=== PATIENT | female | born 1965 | race Caucasian/White ===

== ENCOUNTER 2019-10-23 09:16 | Outpatient (REF) | payer MEDICAID, SELFPAY ==
[2019-10-23 16:35] LABS: Anion Gap 10.8 mmol/L (3-11); BUN 11 mg/dL (7-18); CO2 28.2 mmol/L (21.0-32.0); CREATININE 1.09 mg/dL (0.55-1.02); Calcium 9.5 mg/dL (8.5-10.1); Calculated LDL 42 mg/dL (<100); Chloride 102 mmol/L (98-107); Cholesterol 142 mg/dL (<200); Estimated GFR 52.92 (mL/min/1.73m2); Glucose 130 mg/dL (74-106); HDL Cholesterol 30 mg/dL (40-60); Potassium 4.6 mmol/L (3.5-5.1); Sodium 141 mmol/L (136-145); Triglyceride 350 mg/dL (<150)
[2019-10-23 16:43] LABS: Hemoglobin A1C 7.2 % (3.8-5.6)
== END 2019-10-23 09:36 ==
LOC: NCHCN 09:16
PROVIDERS: PCP Nurse Practitioner Family; Visit Provider Nurse Practitioner Family
DX: E11.9 Type 2 diabetes mellitus without complications (principal); I10 Essential (primary) hypertension; Z13.220 Encounter for screening for lipoid disorders
CPT/HCPCS: 80048; 80061; 83036

== ENCOUNTER 2020-03-23 19:34 | Outpatient (REF) | payer MEDICAID, SELFPAY ==
[2020-03-23 19:30] LABS: HCT 40.9 % (36.0-46.0); HGB 13.1 g/dL (11.2-15.7); MCH 28.4 pg (27.0-33.0); MCV 88.5 fL (80-95); Platelet Count 331 10^3/uL (130-400); RBC 4.62 10^6/uL (3.93-5.22); RDW 14.2 % (11.7-14.6); RDW-SD 45.1 fL; WBC 14.99 10^3/uL (4.4-10.8)
[2020-03-23 19:42] LABS: Iron 33 ug/dL (50-170); Total Iron Binding Capacity 327 ug/dL (250-450); Transferrin Sat 10 % (15-50)
[2020-03-23 19:57] LABS: Ferritin 99 ng/mL (8-252)
== END 2020-03-23 19:54 ==
LOC: NCHCN 19:34
PROVIDERS: PCP Nurse Practitioner Family; Visit Provider Nurse Practitioner Family
DX: R53.83 Other fatigue (principal); K62.5 Hemorrhage of anus and rectum
CPT/HCPCS: 82306; 85027; 82728; 83540; 83550; 84443

== ENCOUNTER 2020-04-28 08:03 | Outpatient (CLI) | payer MEDICAID, SELFPAY ==
[2020-04-30 13:23] LABS: SARS-CoV-2 RNA Not Detected (NotDetected); SARS-CoV-2 RNA Source Nasal/Nares
== END 2020-04-28 08:23 ==
PROVIDERS: PCP Nurse Practitioner Family; Visit Provider Family Medicine
DX: R06.09 Other forms of dyspnea (principal)
CPT/HCPCS: U0003

== ENCOUNTER 2020-05-02 01:52 | Outpatient (CLI) | payer MEDICAID, SELFPAY ==
[2020-05-02] MEDS: Albuterol HFA 18 GM 200 PUFF INH IH (14:51)
[2020-05-02] MEDS: Methacholine 100 MG VIAL IH (14:51)
[2020-05-02] MEDS: Inhaler, Assist Device 1 EACH MC (14:52)
--- NOTE | 2020-05-08 18:12 | W.PFT ---
Date of service: 05/02/20 Time of Service: 01:03 Pulmonary Function Test Result Interpretation Spirometry: No evidence of obstructive airways disease, no bronchodilator response Lung Volumes: No evidence of restriction Diffusion Capacity: Severely reduced which is mildly reduced when corrected to alveolar volume Airway Pressure: Normal Impression Isolated severe diffusion defect. This can be seen in early, developing interstitial lung disease or and pulmonary hypertension. Therefore clinical correlation and perhaps further work-up is recommended Clinical Correlation therefore is recommended. Methacholine Challnege Test Date of Service Date of Service: 05/02/2020 Note After normal spirometry methacholine challenge testing was carried out up to methacholine concentration of 2 mg/mL. At that point the patient had a 22% drop in FEV1. Impression Strongly positive methacholine challenge test
== END 2020-05-02 02:12 ==
PROVIDERS: PCP Nurse Practitioner Family; Visit Provider Nurse Practitioner Family
DX: R06.09 Other forms of dyspnea (principal)
CPT/HCPCS: 94060; 94726; 94729; 95070; 94010; J7674

== ENCOUNTER 2020-06-21 21:56 | Outpatient (REF) | payer MEDICAID, SELFPAY ==
[2020-06-23 09:41] LABS: Alpha 1 Antitrypsin,Serum 160 mg/dL (90-200)
== END 2020-06-21 22:16 ==
LOC: NCHCN 21:56
PROVIDERS: PCP Nurse Practitioner Family; Visit Provider Nurse Practitioner Family
DX: R94.2 Abnormal results of pulmonary function studies (principal)
CPT/HCPCS: 82103

== ENCOUNTER 2020-12-22 14:27 | Outpatient (REF) | payer MEDICAID, SELFPAY ==
[2020-12-22 19:31] LABS: Iron 44 ug/dL (50-170); Total Iron Binding Capacity 328 ug/dL (250-450); Transferrin Sat 13 % (15-50)
[2020-12-22 19:42] LABS: Anion Gap 14.2 mmol/L (3-11); BUN 16 mg/dL (7-18); CO2 20.8 mmol/L (21.0-32.0); CREATININE 1.1 mg/dL (0.55-1.02); Calcium 9.2 mg/dL (8.5-10.1); Chloride 104 mmol/L (98-107); Cholesterol 140 mg/dL (<200); Estimated GFR 51.96 (mL/min/1.73m2); Glucose 129 mg/dL (74-106); HDL Cholesterol 30 mg/dL (40-60); Potassium 4.9 mmol/L (3.5-5.1); Sodium 139 mmol/L (136-145); Triglyceride 423 mg/dL (<150)
[2020-12-22 19:57] LABS: LDL CHOLESTEROL 62 mg/dL (<100)
== END 2020-12-22 14:28 | disposition home or self-care (01) ==
LOC: NCHCN 14:27
PROVIDERS: PCP Nurse Practitioner Family; Visit Provider Nurse Practitioner Family
DX: E78.1 Pure hyperglyceridemia (principal); D50.9 Iron deficiency anemia, unspecified; I10 Essential (primary) hypertension
CPT/HCPCS: 80048; 80061; 83721; 83540; 83550

== ENCOUNTER 2021-01-23 01:13 | Outpatient (CLI) | payer MEDICAID, SELFPAY ==
--- NOTE | 2021-01-23 | DI.MAMMO_ITS ---
Exam(s) MAMMO SCREENING EXAM: MAMMO SCREENING CLINICAL HISTORY: SCREENING, Z12.39. TECHNIQUE: Bilateral full field digital CC and MLO mammographic images were obtained with 3D tomosyn thesis and utilizing computer aided detection (CAD). COMPARISON: None. Prior screening baseline mammogram was in 2010 and apparently not available. FINDINGS: There are no CAD designations. There are no spiculated masses nor malignant appearing microcalcification groups. There is no significant architectural distortion nor skin thickening-retraction. IMPRESSION: No radiographic evidence of malignancy. BI-RADS Category 1 - Negative Breast Density - Category B - Scattered areas of fibroglandular density Breast density Category C or D implies that the patient has dense breast tissue. Dense breast tissue can make it harder to find cancer on a mammogram. Dense breast tissue is also associated with an incr eased risk of breast cancer. This information about the result of the mammogram report was provided to the patient to raise their awareness. Use this report when you speak with the patient about their risks for breast cancer, which includes their family history. At that time, you may recommend additional screening tests (Ultrasoun d or MRI) as these tests may add significant information. A negative radiographic report should not delay biopsy if a dominant or clinically suspicious mass is present. Up to ten percent of cancers are not identified on mammography. A negative report may reinforce clinical impression. Adenosis and dense breasts may obscure an underlying neoplasm. False positive reports average 6 to 10%. Patient will receive a letter notifying them of these results.
== END 2021-01-23 01:33 ==
PROVIDERS: PCP Nurse Practitioner Family; Visit Provider Nurse Practitioner Family
DX: Z12.31 Encounter for screening mammogram for malignant neoplasm of breast (principal)
CPT/HCPCS: 77063; 77067

== ENCOUNTER 2021-02-07 03:32 | Outpatient (CLI) | payer MEDICAID, SELFPAY ==
[2021-02-07 10:42] LABS: Abs Immature Grans 0.07 10^3/uL (0.0-0.06); Absolute Basophil Count 0.08 10^3/uL (0.0-0.2); Absolute Eosinophil Count 0.24 10^3/uL (0.0-0.7); Absolute Lymphocyte Count 3.75 10^3/uL (1.2-3.4); Absolute Monocyte Count 0.59 10^3/uL (0.1-0.8); Basophils % 0.7; Eosinophils % 2.1; HCT 40.8 % (36.0-46.0); HGB 13.3 g/dL (11.2-15.7); Immature Grans % 0.6; Lymphocytes % 32.8; MCH 28.4 pg (27.0-33.0); MCHC 32.6 % (32.0-36.0); MPV 9.8 fL (8.0-11.0); Monocytes % 5.2; Neutrophils % 58.6; Nucleated RBC 0 %; Platelet Count 344 10^3/uL (130-400); RBC 4.69 10^6/uL (3.93-5.22); RDW 14.6 % (11.7-14.6); RDW-SD 46.2 fL; WBC 11.44 10^3/uL (4.4-10.8)
[2021-02-07 11:27] LABS: C-Reactive Protein 3.33 mg/dL (0.0-0.3)
[2021-02-08 09:32] LABS: IgA 517 mg/dL (85-499); IgG 1260 mg/dL (610-1,616); IgM 96 mg/dL (35-242)
[2021-02-08 15:09] LABS: ANA Interpretation Positive (Negative); ANA Titer Pattern 1:80 Speckled
[2021-02-09 10:38] LABS: Myeloperoxidase Ab IgG <0.2 U; Proteinase 3 Ab (PR3) <0.2 U
[2021-02-09 13:27] LABS: c-ANCA Negative (Negative); p-ANCA Negative (Negative)
[2021-02-13 16:48] LABS: Misc Referral (MAYO) See Comments
== END 2021-02-07 03:33 | disposition home or self-care (01) ==
LOC: LBO 03:32
PROVIDERS: PCP Nurse Practitioner Family; Visit Provider Internal Medicine Critical Care Medicine
DX: J84.9 Interstitial pulmonary disease, unspecified (principal)
CPT/HCPCS: 36415; 82784; 83516; 85025; 86038; 86140; 86255

== ENCOUNTER 2022-02-02 16:04 | Outpatient (REF) | payer MEDICAID, SELFPAY ==
[2022-02-02 15:35] LABS: Anion Gap 12.6 mmol/L (3-11); BUN 13 mg/dL (7-18); CO2 23.4 mmol/L (21.0-32.0); Calcium 9.5 mg/dL (8.5-10.1); Chloride 103 mmol/L (98-107); Cholesterol 204 mg/dL (<200); Estimated GFR 57.78 (mL/min/1.73m2); Glucose 136 mg/dL (74-106); HDL Cholesterol 33 mg/dL (40-60); Potassium 4.4 mmol/L (3.5-5.1); Sodium 139 mmol/L (136-145); Triglyceride 457 mg/dL (<150)
[2022-02-02 16:21] LABS: LDL CHOLESTEROL 108 mg/dL (<100)
== END 2022-02-02 16:05 | disposition home or self-care (01) ==
LOC: NCHCN 16:04
PROVIDERS: PCP Nurse Practitioner Family; Visit Provider Nurse Practitioner Family
DX: N18.31 Chronic kidney disease, stage 3a (principal); R10.9 Unspecified abdominal pain
CPT/HCPCS: 80048; 80061; 83721

== ENCOUNTER → 2022-03-26 02:36 | Outpatient (CLI) | payer MEDICAID, SELFPAY ==
--- NOTE | 2022-03-26 | DI.CT_ITS ---
Exam(s) CT ABDOMEN WO/W EXAM: CT ABDOMEN WO/W CLINICAL HISTORY: RT ADRENAL MASS E27.8 DIABETES TYPE 2 E11.9. TECHNIQUE: Imaging Protocol: Axial computed tomography images with coronal and sagittal reformatted images were created and reviewed CONTRAST MATERIAL: Intravenous: Omnipaque 350 Contrast volume:100 ml Contrast route:IV - Oral: / no COMPARISON: CT RENAL COLIC WO CONTRAST from 07/10/[address] CHEST WO CONTRAST (GENERIC) from 08/16/2021 [facility]. FINDINGS: ABDOMEN: Lung Bases: Normal where visualized. Liver: Normal density. No measurable mass. Gallbladder and biliary tract: Status post cholecystectomy. No radiodense calculus or dilation. Pancreas: Normal density, no abnormal calcifications or inflammatory process. Spleen: Normal. Kidneys: Normal size, contour and axis. No radiodense stones or obstructive uropathy. No masses seen. Adrenal glands: no change in 4 cm fatty density mass of the right adrenal compared with 2011. Findin gs consistent with a benign myelolipoma. No further follow-up necessary. Abdominal Aorta: Abdominal portion non-dilated. Moderate Lymph nodes: Within normal limits. IMPRESSION: No change in fatty attenuation right adrenal mass compared with 2011. RADIATION DOSE DELIVERED: 2,262.94mGy.cm Total DLP DATA REPOSITORY: All CT scans at this facility are submitted to the National Radiology Data Registry (NRDR) Dose Index Registry (DIR) with the [employer] (ACR). RADIATION OPTIMIZATION: All CT scans at this facility use at least one of these dose optimization te chniques: automated exposure control; mA and/or kV adjustment per patient size (includes targeted exa ms where dose is matched to clinical indication); or iterative reconstruction.
[2022-03-26] MEDS: Barium Sulfate 2% W/V-Berry Smoothie 450 ML BTL PO (07:46)
[2022-03-26 08:18] LABS: CREATININE 0.9 mg/dL (0.55-1.02); Estimated GFR 75.97 (mL/min/1.73m2)
[2022-03-26] MEDS: Omnipaque 350 MG/ML 500 ML BTL-Imaging package IJ (09:09)
[2022-03-26] MEDS: Normal Saline Flush 10 ML SYR IVP (09:10)
== END ==
PROVIDERS: PCP Nurse Practitioner Family; Visit Provider Nurse Practitioner Family
DX: Z01.812 Encounter for preprocedural laboratory examination (principal); E27.8 Other specified disorders of adrenal gland; E11.9 Type 2 diabetes mellitus without complications; Z90.49 Acquired absence of other specified parts of digestive tract; D35.01 Benign neoplasm of right adrenal gland
CPT/HCPCS: 74170; 82565

== ENCOUNTER 2022-05-31 10:39 | Emergency (ER) | payer MEDICAID, SELFPAY ==
--- NOTE | 2022-05-31 10:36 | RT.EKG_ITS ---
APPROVED REPORT Exam: Resting ECG Reason for Exam: syncope Patient Location: E HR:85 bpm ECG Measurements Heart Rate 85 AXIS OK 162 P 60 QRSd 85 QRS 65 QT 362 T 52 QTc 431 Conclusion Sinus rhythm...normal P axis, V-rate 60- 99
[2022-05-31 10:40] VITALS: BP 92/55; PULSE 89; RESP 18; TEMP 36.8; O2SAT 93
--- NOTE | 2022-05-31 11:00 | DI.CT_ITS ---
Exam(s) CT CHEST PE CTA EXAM: CT CHEST PE CTA CLINICAL HISTORY: chest pain, syncope. TECHNIQUE: Imaging Protocol: Axial CT angiography was performed with multi-slice acquisition and mu lti-planar and/or 3D reconstructions. CONTRAST MATERIAL: Intravenous: Omnipaque 350 contrast volume:[address] ABDOMEN WO/W from 03/26/2022 FINDINGS: Tracheobronchial tree: Patent where visualized. Pulmonary parenchyma: No consolidation or dominant measurable mass. There are emphysematous changes i n the lungs. Dependent atelectatic changes are seen in the lung bases. Pulmonary Arteries: No evidence of filling defect to suggest pulmonary emboli. Mediastinum and [place]: There are mildly enlarged lymph nodes seen in the mediastinum and hilum which a re unchanged compared to the 2020 examination. The esophagus is unremarkable. Visualized thyroid gland: Unremarkable. Pleura: No effusion or pneumothorax. Heart: The heart is not dilated. No coronary artery calcifications are seen. No pericardial effusion. Aorta: Thoracic aorta non-dilated. No evidence of dissection. Atherosclerosis is present. Upper abdomen: There is a stable fat density right adrenal mass consistent with a myelolipoma. Soft tissues: Unremarkable. Bones: Within normal limits for the patient's age. IMPRESSION: 1. No evidence of pulmonary embolism, thoracic aortic dissection or aneurysm. 2. Emphysematous changes in the lungs. 3. Mild basilar atelectasis. No focal consolidating infiltrates. 4. Stable right fat density adrenal mass consistent with a myelolipoma. 5. Stable mildly enlarged mediastinal and hilar lymph nodes. RADIATION DOSE DELIVERED: 484.55mGy.cm Total DLP DATA REPOSITORY: All CT scans at this facility are submitted to the National Radiology Data Registry (NRDR) Dose Index Registry (DIR) with the [employer] (ACR). RADIATION OPTIMIZATION: All CT scans at this facility use at least one of these dose optimization te chniques: automated exposure control; mA and/or kV adjustment per patient size (includes targeted exa ms where dose is matched to clinical indication); or iterative reconstruction.
--- NOTE | 2022-05-31 11:00 | DI.CT_ITS ---
Exam(s) CT HEAD WO EXAM: CT HEAD WO CLINICAL HISTORY: pain s/p fall. TECHNIQUE: Imaging Protocol: Axial computed tomography images with coronal and sagittal reformatted images were created and reviewed COMPARISON: None. FINDINGS: Ventricles and Extra axial spaces: Normal in size and morphology for the patient's age. Hemorrhage: None. Cerebral parenchyma: Normal. Midline shift: None. Brainstem/Cerebellum: Normal. Calvarium: Normal. Visualized Paranasal sinuses/Mastoids: Clear. Soft Tissues: Unremarkable. IMPRESSION: 1. No acute intracranial process. 2. Findings were discussed with Dr. Dumas at 12:26 p.m. on 05/31/2022. RADIATION DOSE DELIVERED: 676.34mGy.cm Total DLP DATA REPOSITORY: All CT scans at this facility are submitted to the National Radiology Data Registry (NRDR) Dose Index Registry (DIR) with the [employer] (ACR). RADIATION OPTIMIZATION: All CT scans at this facility use at least one of these dose optimization te chniques: automated exposure control; mA and/or kV adjustment per patient size (includes targeted exa ms where dose is matched to clinical indication); or iterative reconstruction.
--- NOTE | 2022-05-31 11:04 | ED.GENADUL_ITS ---
Discharge Plan Disposition Patient Disposition: Home Condition: Stable Discharge Details Clinical Impression: Influenza, Syncope Primary Care Provider: Brittany Sanii ED Provider: Ender Dumas Home Meds and New Rx's Prescriptions: New oseltamivir [Tamiflu] 75 mg capsule 75 mg PO BID 5 Days Qty: 10 0RF Continued cyclobenzaprine 10 mg tablet 10 tab PO HS Label Comments: TAKE ONE TABLET BY MOUTH THREE TIMES A DAY NEEDED atorvastatin 40 mg tablet 40 tab PO DAILY Label Comments: TAKE ONE TABLET BY MOUTH EVERY DAY gabapentin 400 mg capsule 1,200 cap PO TID Label Comments: TAKE 3 CAPSULES BY MOUTH 3 TIMES DAILY amlodipine 5 mg tablet 1 tab PO DAILY Label Comments: TAKE ONE TABLET BY MOUTH EVERY DAY metformin 1,000 mg tablet 1,000 tab PO BID Label Comments: TAKE ONE TABLET BY MOUTH TWICE A DAY fluticasone propion-salmeterol [Advair Diskus] 500-50 mcg/dose blister with device 1 ea INHALATION BID Label Comments: INHALE 1 PUFF BY MOUTH EVERY 12 HOURS albuterol sulfate [ProAir HFA] 90 mcg/actuation HFA aerosol inhaler 2 inh INHALATION PRN PRN Label Comments: INHALE 1-2 PUFFS BY MOUTH EVERY 4 TO 6 HOURS NEEDED lisinopril 40 mg tablet 40 tab PO DAILY Label Comments: TAKE ONE TABLET BY MOUTH EVERY DAY duloxetine 60 mg capsule,delayed release(DR/EC) 1 cap PO DAILY Label Comments: TAKE ONE CAPSULE BY MOUTH EVERY DAY ferrous gluconate 324 mg (38 mg iron) tablet 324 mg PO DAILY Label Comments: TAKE ONE TABLET BY MOUTH EVERY DAY cholecalciferol (vitamin D3) 50 mcg (2,000 unit) capsule 1 cap PO DAILY Label Comments: TAKE ONE CAPSULE BY MOUTH EVERY DAY aspirin 325 mg Tablet 325 mg PO DAILY Discharge Instructions Instructions: Influenza (ED) Additional Instructions: make sure you are drinking plenty of fluids to stay hydrated follow up with your primary care provider in 1-2 weeks if you feel more ill, have severe pain or difficulty breathing return to the emergency department Stand Alone Forms: Work Release Medical Decision Making 56 yo female with hx of htn, copd, hld, who comes in with chief complaint of cough and had an episode of syncope. She states yesterday she felt well and woke up this morning with persistent coughing. She went to work and while standing she felt lightheaded and lost consciousness for a few seconds. She denies having any fevers, chest pain, abdominal pain. She has a mild posterior headache where she hit her head during the fall. She has no midline c/t/l spine pain. She is speaking in full sentences in no distress. She has clear lung sounds, no murmurs, no jvd, no abdominal tenderness. Ekg unremarkable. Will obtain cbc, troponin, cmp and given the syncope will obtain cta of the chest to evaluate for possible pe pt stable, ambulating without difficulty, labs unremarkable, is positive for flu. CT head and cta of the chest shows no acute findings. She is stable for d/c, suspect likely orthostasis and dehydration likely the cause of her symptoms. She will f/u with her pcp, return precautions given Differential Diagnosis Differential Diagnosis: orthostasis, pneumonia, pe Medical Records Medical records reviewed: Yes I reviewed the patient's medical records. Imaging Data Radiologic Study: Attestation: I personally reviewed and interpreted this imaging study as follows: Imaging: CT Scan Radiologist's impression: no acute findings head ct Radiologic Study #2: Attestation: I personally reviewed and interpreted this imaging study as follows: Imaging: CT Scan Radiologist's impression: no acute findings chest ct, emphysematous changes Lab Data Lab results reviewed: Yes I reviewed the patient's lab results. ECG Data Attestation: I personally reviewed and interpreted this ECG (s) as follows: Prior ECG tracings: not available for review Interpretation: sinus rhythm, rate of 85, pr 162, no acute st t wave ischemic findings Sign Out No HPI General Mode of arrival: EMS . Date/Time Provider Initiated Documentation: 05/31/22 10:46 . Limitations to Documentation: no limitations . Information obtained by: patient . History of Present Illness 56 year old F presents to the emergency department with the chief complaint of syncope, described as moderate, Patient started experiencing this hour(s) (1) and it has been now resolved. No relieving factors improve symptom(s), No exacerbating factors reported . Patient notes cough. Patient did receive the following treatments prior to arrival, none Related Data Home Medications Medication Instructions Recorded Confirmed albuterol sulfate 90 mcg/actuation 2 inh inhalation PRN PRN 05/31/22 05/31/22 aerosol inhaler (ProAir HFA) amlodipine 5 mg tablet 1 tab PO DAILY 05/31/22 05/31/22 aspirin 325 mg tablet 325 mg PO DAILY 05/31/22 05/31/22 atorvastatin 40 mg tablet 40 tab PO DAILY 05/31/22 05/31/22 cholecalciferol (vitamin D3) 50 1 cap PO DAILY 05/31/22 05/31/22 mcg (2,000 unit) capsule cyclobenzaprine 10 mg tablet 10 tab PO HS 05/31/22 05/31/22 duloxetine 60 mg capsule,delayed 1 cap PO DAILY 05/31/22 05/31/22 release ferrous gluconate 324 mg (38 mg 324 mg PO DAILY 05/31/22 05/31/22 iron) tablet fluticasone 500 mcg-salmeterol 50 1 ea inhalation BID 05/31/22 05/31/22 mcg/dose blistr powdr for inhalation (Advair Diskus) gabapentin 400 mg capsule 1,200 cap PO TID 05/31/22 05/31/22 lisinopril 40 mg tablet 40 tab PO DAILY 05/31/22 05/31/22 metformin 1,000 mg tablet 1,000 tab PO BID 05/31/22 05/31/22 oseltamivir 75 mg capsule (Tamiflu) 75 mg PO BID 5 days #10 caps 05/31/22 Previous Rx's Medication Instructions Recorded oseltamivir 75 mg capsule (Tamiflu) 75 mg PO BID 5 days #10 caps 05/31/22 Allergies Allergy/AdvReac Type Severity Reaction Status Date / Time latex Allergy Skin Rash Unverified 05/31/22 10:47 Penicillins Allergy Hives Unverified 05/31/22 10:47 General Stated Complaint: Dizzy/Sync FRANK: 3 Review of Systems All systems reviewed & are unremarkable except as noted in HPI and below Constitutional Constitutional: Denies chills, Denies fever(s) and Denies weakness Cardiovascular Cardiovascular: Denies chest pain and Denies dyspnea Respiratory Respiratory: Denies cough and Denies dyspnea Gastrointestinal Gastrointestinal: Denies abdominal pain, Denies nausea and Denies vomiting Musculoskeletal Musculoskeletal: Denies joint swelling Neurologic Neurologic: Denies weakness PFSH All Active Problems (Updated 05/31/22 @ 12:43 by Ender Dumas MD) Influenza (Acute) Syncope (Chronic) Social History Smoking/Tobacco Use Status: Current every day Tobacco Type: cigarettes Smoking risk assessment performed?: Yes Alcohol Intake: current Alcohol Intake frequency: holidays/special occasions only Drug use: Never Substance use type: does not use Do you feel safe at home: Yes Do you feel safe in your relationship?: Yes Exam Const General: no acute distress Orientation: alert HENMT Head: normal to inspection Ears: external ears normal General nose exam: external nose normal Mouth: moist mucous membranes Eyes General: appearance normal, both eyes and all related structures Neck Neck: normal visual inspection Resp Effort & Inspection: normal respiratory effort and able to speak in complete sentences Cardio Rate: regular rate Skin General skin exam: no rashes or lesions noted Neuro General: patient alert and patient oriented x3 Extrem General: normal to inspection Psych Mental Status: mental status grossly normal Course Vital Signs Vital signs: Vital Signs Temperature 36.8 C 05/31/22 10:40 Pulse 89 05/31/22 10:40 Respiratory Rate 18 05/31/22 10:40 Blood Pressure 92/55 L 05/31/22 10:40 Pulse Oximetry 93 05/31/22 10:40 Temperature 36.8 C 05/31/22 10:40 Temperature Source Temporal Artery Scan 05/31/22 10:40 Pulse 89 05/31/22 10:40 Respiratory Rate 18 05/31/22 10:40 Respiratory Effort 05/31/22 10:46 Blood Pressure 92/55 L 05/31/22 10:40 Blood Pressure Position Sitting 05/31/22 10:40 Pulse Oximetry 93 05/31/22 10:40 Oxygen Delivery Method Room Air 05/31/22 10:40 Oxygen Flow Rate 0 05/31/22 10:40 Pain Level 0 05/31/22 10:40
[2022-05-31] MEDS: Normal Saline 1,000 ML 1000 ML IV (11:05)
[2022-05-31 11:16] LABS: Abs Immature Grans 0.08 10^3/uL (0.0-0.06); Absolute Basophil Count 0.04 10^3/uL (0.0-0.2); Absolute Eosinophil Count 0.09 10^3/uL (0.0-0.7); Absolute Lymphocyte Count 0.53 10^3/uL (1.2-3.4); Absolute Neutrophil Count 6.76 10^3/uL (1.2-6.7); Basophils % 0.5; Eosinophils % 1.1; HCT 36.6 % (36.0-46.0); HGB 11.8 g/dL (11.2-15.7); Lymphocytes % 6.5; MCH 28.3 pg (27.0-33.0); MCHC 32.2 % (32.0-36.0); MCV 88 fL (80-95); MPV 9.4 fL (8.0-11.0); Monocytes % 7.4; Neutrophils % 83.5; Platelet Count 245 10^3/uL (130-400); RBC 4.17 10^6/uL (3.93-5.22); RDW 14.7 % (11.7-14.6); RDW-SD 47.7 fL
[2022-05-31 11:19] LABS: BE (Venous) -3 mmol/L (-2-3); HCO3 (Venous) 23 mmol/L (23-28); O2 Sat (Venous) 38 %; TCO2 (Venous) 25 mmol/l (24-29); pCO2 (Venous) 49 mmHg (41-51); pH (Venous) 7.28 (7.31-7.41); pO2 (Venous) 25 mmHg
[2022-05-31 11:33] VITALS: O2SAT 96
[2022-05-31 11:34] LABS: COVID-19 PCR Negative (Negative); Influenza B PCR Negative (Negative); RSV PCR Negative (Negative)
[2022-05-31 11:35] LABS: ALT 16 U/L (14-59); AST 19 U/L (15-37); Albumin 3.1 g/dL (3.4-5.0); Alkaline Phosphatase 120 U/L (46-116); Anion Gap 7.1 mmol/L (3-11); BUN 21 mg/dL (7-18); Bilirubin, Total 0.4 mg/dL (0.2-1.0); CO2 25.9 mmol/L (21.0-32.0); CREATININE 1.4 mg/dL (0.55-1.02); Calcium 8.5 mg/dL (8.5-10.1); Chloride 102 mmol/L (98-107); Estimated GFR 44.71 (mL/min/1.73m2); Glucose 121 mg/dL (74-106); Magnesium 1.6 mg/dL (1.8-2.4); Potassium 4.6 mmol/L (3.5-5.1); Sodium 135 mmol/L (136-145); Total Protein 7.2 g/dL (6.4-8.2); Troponin I 50 ng/L (<or=60)
[2022-05-31 11:36] LABS: Influenza A PCR Positive (Negative)
[2022-05-31] MEDS: Omnipaque 350 MG/ML 100 ML BTL IJ (11:49)
[2022-05-31] MEDS: Normal Saline - Diluent 50 ML VIAL IJ (11:50)
[2022-05-31 12:47] LABS: Bilirubin Negative (Negative); Blood Negative (Negative); Clarity Sl Cloudy (Clear); Glucose Negative (Negative); Ketones Negative (Negative); Leukocyte Esterase Negative (Negative); Nitrite Negative (Negative); Urobilinogen 0.2 EU/dL (Up TO 0.2)
[2022-05-31 12:48] VITALS: BP 111/56; PULSE 91; RESP 18; O2SAT 92
== END 2022-05-31 12:55 | disposition home or self-care (01) ==
LOC: ER 13:32
PROVIDERS: Emergency Provider Emergency Medicine; PCP Nurse Practitioner Family
DX: J10.1 Influenza due to other identified influenza virus with other respiratory manifestations (principal); R55 Syncope and collapse; J44.9 Chronic obstructive pulmonary disease, unspecified; E78.5 Hyperlipidemia, unspecified; I10 Essential (primary) hypertension; Z20.822 Contact with and (suspected) exposure to COVID-19
CPT/HCPCS: 36415; 71275; 80053; 82805; 87637; 93005; 96360; 99285; 70450; 81003; 83735; 84484; 85025; 93010; J3490

== ENCOUNTER 2022-08-14 13:42 | Outpatient (REF) | payer MEDICAID, SELFPAY ==
[2022-08-14 15:37] LABS: HCT 45.7 % (36.0-46.0); HGB 14.7 g/dL (11.2-15.7); MCH 29.1 pg (27.0-33.0); MCHC 32.2 % (32.0-36.0); MCV 90 fL (80-95); MPV 9.9 fL (8.0-11.0); Platelet Count 341 10^3/uL (130-400); RBC 5.06 10^6/uL (3.93-5.22); RDW-SD 49.8 fL; WBC 11.18 10^3/uL (4.4-10.8)
[2022-08-14 16:18] LABS: ALT 16 U/L (14-59); AST 23 U/L (15-37); Albumin 3.8 g/dL (3.4-5.0); Alkaline Phosphatase 146 U/L (46-116); Anion Gap 8.6 mmol/L (3-11); BUN 16 mg/dL (7-18); Bilirubin, Total 0.5 mg/dL (0.2-1.0); CO2 28.4 mmol/L (21.0-32.0); CREATININE 0.9 mg/dL (0.55-1.02); Calcium 9.8 mg/dL (8.5-10.1); Chloride 103 mmol/L (98-107); Estimated GFR 75.97 (mL/min/1.73m2); Glucose 102 mg/dL (74-106); Potassium 5.6 mmol/L (3.5-5.1); Sodium 140 mmol/L (136-145); TSH (W/Ref FT4) 1.56 uIU/mL (0.36-3.74); Total Protein 8.1 g/dL (6.4-8.2)
[2022-08-14 16:33] LABS: Iron 48 ug/dL (50-170); Total Iron Binding Capacity 328 ug/dL (250-450); Transferrin Sat 15 % (15-50)
== END 2022-08-14 13:43 | disposition home or self-care (01) ==
LOC: NCHCN 13:42
PROVIDERS: PCP Nurse Practitioner Family; Visit Provider Nurse Practitioner Family
DX: N18.31 Chronic kidney disease, stage 3a (principal); D50.9 Iron deficiency anemia, unspecified; E11.9 Type 2 diabetes mellitus without complications
CPT/HCPCS: 80053; 85027; 83540; 83550; 84443

== ENCOUNTER 2022-08-22 01:44 | Outpatient (CLI) | payer MEDICAID, SELFPAY ==
--- NOTE | 2022-08-22 | DI.RAD_ITS ---
Exam(s) XR HAND RT COMPLETE XR WRIST RT COMPLETE EXAM: XR HAND RT COMPLETE and XR wrist RT complete CLINICAL HISTORY: RT WRIST PAIN M25.531. TECHNIQUE: 2D digital imaging was performed of the right hand. Six images were obtained. AP, latera l and oblique views were obtained. COMPARISON: None. FINDINGS: BONES: No acute fracture is present. No bony destructive lesion is seen. JOINTS: No dislocation present. There are degenerative changes seen in the hand, particularly at the 1st CMC joint and the interphalangeal joints of the fingers. Findings include joint space narrowing, bony hypertrophy and subchondral sclerosis. The findings are most marked at the 1st CMC joint. SOFT TISSUE: Normal. IMPRESSION: Osteoarthritis of the hand and wrist. The findings are most marked at the 1st CMC joint. DATA REPOSITORY: RADIATION DOSE DELIVERED:
== END 2022-08-22 02:04 ==
PROVIDERS: PCP Nurse Practitioner Family; Visit Provider Nurse Practitioner Family
DX: M79.641 Pain in right hand (principal); M25.531 Pain in right wrist; M18.11 Unilateral primary osteoarthritis of first carpometacarpal joint, right hand; M19.031 Primary osteoarthritis, right wrist; M19.041 Primary osteoarthritis, right hand
CPT/HCPCS: 73110; 73130

== ENCOUNTER 2022-09-17 01:53 | Outpatient (CLI) | payer MEDICAID, SELFPAY ==
--- NOTE | 2022-09-17 | DI.CT_ITS ---
Exam(s) CT CHEST HIGH RESOLUTION EXAM: CT CHEST HIGH RESOLUTION CLINICAL HISTORY: INTERSTITIAL LUNG DISEASE J84.9 SMOKER F17.200. TECHNIQUE: Imaging protocol: Axial computed tomography images were obtained and coronal and sagittal reformatted images were created and reviewed. CONTRAST MATERIAL: Noncontrast COMPARISON: CT CT CHEST WO CONTRAST (GENERIC) from 08/16/[address] CHEST PE CTA from 05/31/2022 FINDINGS: Pulmonary parenchyma: No consolidation. No nodules. Emphysema: Mild at apices. Mild multifocal air trapping. Tracheobronchial tree: No mucous plugging. No bronchiectasis . Interstitial changes: Mild interlobular septal thickening near the lung bases. Pleura: No effusion or pneumothorax. Heart: The left ventricle is mildly dilated. The coronary arteries show mildcalcifications. Aorta: Thoracic aorta non-dilated. Mildatherosclerotic changes. Lymph nodes: Mildly enlarged mediastinal lymph nodes, stable.. Bones: Mild degenerative changes are seen. No evidence of compression fracture. Upper abdomen: Stable right adrenal myelolipoma. IMPRESSION: Stat stable mild emphysematous and fibrotic changes.. No evidence mass or acute abnormality. RADIATION DOSE DELIVERED: 590.65mGy.cm Total DLP 590.65mGy.cm Total DLP DATA REPOSITORY: All CT scans at this facility are submitted to the National Radiology Data Registry (NRDR) Dose Index Registry (DIR) with the [employer] (ACR). RADIATION OPTIMIZATION: All CT scans at this facility use at least one of these dose optimization te chniques: automated exposure control; mA and/or kV adjustment per patient size (includes targeted exa ms where dose is matched to clinical indication); or iterative reconstruction.
== END 2022-09-17 02:13 ==
LOC: DI 01:54
PROVIDERS: PCP Nurse Practitioner Family; Visit Provider Nurse Practitioner Family
DX: J84.89 Other specified interstitial pulmonary diseases (principal); F17.210 Nicotine dependence, cigarettes, uncomplicated; R59.0 Localized enlarged lymph nodes; J43.8 Other emphysema; J98.4 Other disorders of lung
CPT/HCPCS: 71250

== ENCOUNTER 2022-12-24 15:02 | Outpatient (REF) | payer MEDICAID, SELFPAY ==
[2022-12-24 20:52] LABS: Abs Immature Grans 0.04 10^3/uL (0.0-0.06); Absolute Basophil Count 0.11 10^3/uL (0.0-0.2); Absolute Eosinophil Count 0.29 10^3/uL (0.0-0.7); Absolute Lymphocyte Count 3.84 10^3/uL (1.2-3.4); Absolute Monocyte Count 0.59 10^3/uL (0.1-0.8); Basophils % 0.9; Eosinophils % 2.3; HCT 39.9 % (36.0-46.0); HGB 13.2 g/dL (11.2-15.7); Immature Grans % 0.3; Lymphocytes % 30.8; MCH 29.8 pg (27.0-33.0); MCHC 33.1 % (32.0-36.0); MCV 90 fL (80-95); MPV 9.8 fL (8.0-11.0); Monocytes % 4.7; Platelet Count 369 10^3/uL (130-400); RBC 4.43 10^6/uL (3.93-5.22); RDW 13.3 % (11.7-14.6); RDW-SD 44.4 fL; WBC 12.46 10^3/uL (4.4-10.8)
[2022-12-24 20:57] LABS: Iron 35 ug/dL (50-170); Total Iron Binding Capacity 314 ug/dL (250-450); Transferrin Sat 11 % (15-50)
[2022-12-24 21:07] LABS: ALT 18 U/L (14-59); AST 16 U/L (15-37); Albumin 3.5 g/dL (3.4-5.0); Alkaline Phosphatase 142 U/L (46-116); Anion Gap 11.3 mmol/L (3-11); BUN 15 mg/dL (7-18); Bilirubin, Total 0.6 mg/dL (0.2-1.0); CO2 22.7 mmol/L (21.0-32.0); CREATININE 1.2 mg/dL (0.55-1.02); Calcium 9.1 mg/dL (8.5-10.1); Chloride 106 mmol/L (98-107); Estimated GFR 53.46 (mL/min/1.73m2); Glucose 114 mg/dL (74-106); Magnesium 1.7 mg/dL (1.8-2.4); Potassium 4.6 mmol/L (3.5-5.1); Sodium 140 mmol/L (136-145); TSH (W/Ref FT4) 1.57 uIU/mL (0.36-3.74); Total Protein 7.6 g/dL (6.4-8.2)
[2022-12-24 21:08] LABS: Bilirubin Negative (Negative); Blood Negative (Negative); Clarity Clear (Clear); Glucose Negative (Negative); Ketones Negative (Negative); Leukocyte Esterase Negative (Negative); Nitrite Negative (Negative); Specific Gravity 1.025 (1.005-1.025); Urobilinogen 0.2 mg/dL (Up to 0.2)
[2022-12-24 21:14] LABS: COMMENT (LAB VIEW ONLY) 179.86 mg/dL; Microalb ug/mg Crea 11.6 ug/mg Cr
[2022-12-24 21:15] LABS: Hemoglobin A1C 6.1 % (<5.7)
== END 2022-12-24 15:03 | disposition home or self-care (01) ==
LOC: NCHCN 15:02
PROVIDERS: PCP Nurse Practitioner Family; Visit Provider Nurse Practitioner Family
DX: R25.2 Cramp and spasm (principal); R63.4 Abnormal weight loss; L65.9 Nonscarring hair loss, unspecified; E11.9 Type 2 diabetes mellitus without complications; Z86.2 Personal history of diseases of the blood and blood-forming organs and certain disorders involving the immune mechanism
CPT/HCPCS: 80053; 81003; 82043; 82570; 83036; 83540; 83550; 83735; 84443; 85025

== ENCOUNTER 2022-12-31 01:36 | Outpatient (CLI) | payer MEDICAID, SELFPAY ==
--- NOTE | 2022-12-31 09:50 | DI.RAD_ITS ---
Exam(s) RF BARIUM SWALLOW EXAM: RF BARIUM SWALLOW CLINICAL HISTORY: DIFFICULTY SWALLOWING, R13.10,LIQUIDS AND SOLIDS,SMOKER, FEELS LIKE BLOCKAG TECHNIQUE: 2D and realtime digital imaging was performed. CONTRAST MATERIAL: Oral barium Oral water soluble contrast was administered. COMPARISON: No exams were available for comparison FINDINGS: ESOPHAGRAM: This study was performed both upright and recumbent, the with both single and air contrast technique. Swallowing mechanism is grossly intact without evidence of aspiration. There is no Zenker's divertic ulum. No obvious hypertense upper esophageal sphincter. However, there is an anterior mural defect in the barium column at C5 level, consistent with a web-self at this level. The remainder of the esophagus below this level appears unremarkable exhibiting normal mucosal patter n and diameter. No evidence of fixed lesions nor hiatal hernia. No Schatzki ring. No tertiary wave s evident. No reflux demonstrated. 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 This is coming off the anterior wall. Endoscopy recommended. RADIATION DOSE DELIVERED: emmanuelle Elizondo=1.23 mGy
[2022-12-31] MEDS: Barium Sulfate 60% W/V 355 ML BTL 200 ML PO (10:11)
[2022-12-31] MEDS: Barium Sulfate 98% W/W 140 ML BTL 100 ML PO (10:12)
[2022-12-31] MEDS: Simethicone/Sod Bicarb/Cit Ac, 4 gram PACKET 1 PACKET PO (10:13)
== END 2023-04-10 16:34 ==
LOC: DI 01:36
PROVIDERS: PCP Nurse Practitioner Family; Visit Provider Nurse Practitioner Family
DX: R13.10 Dysphagia, unspecified (principal)
CPT/HCPCS: 74221; J3490

== ENCOUNTER 2023-01-16 07:42 | Day surgery (SDC) | payer MEDICAID, SELFPAY ==
--- NOTE | 2023-01-16 06:42 | ANES.PREOP_ITS ---
General Info Date of Service Date Performed: 01/16/23 Height: 5 ft 4 in Weight: 85.275 kg Body Mass Index (BMI): 32.2 Surgical Procedure: Operation Date: 01/16/23 09:35 Proposed Procedure Side Surgeon p EGD with possible balloon Dilation Marta Alvarez MD Meds Allergies and Home Medications Allergies Allergy/AdvReac Type Severity Reaction Status Date / Time latex Allergy Skin Rash Unverified 01/16/23 08:14 Penicillins Allergy Hives Unverified 01/16/23 08:14 Home Medication Medication Instructions Recorded albuterol sulfate 90 mcg/actuation 2 inh inhalation PRN PRN 05/31/22 aerosol inhaler (ProAir HFA) amlodipine 5 mg tablet 1 tab PO DAILY 05/31/22 aspirin 325 mg tablet 81 mg PO DAILY 05/31/22 atorvastatin 40 mg tablet 40 tab PO DAILY 05/31/22 cholecalciferol (vitamin D3) 50 1 cap PO DAILY 05/31/22 mcg (2,000 unit) capsule cyclobenzaprine 10 mg tablet 10 tab PO HS 05/31/22 duloxetine 60 mg capsule,delayed 1 cap PO DAILY 05/31/22 release ferrous gluconate 324 mg (38 mg 324 mg PO DAILY 05/31/22 iron) tablet fluticasone 500 mcg-salmeterol 50 1 ea inhalation BID 05/31/22 mcg/dose blistr powdr for inhalation (Advair Diskus) gabapentin 400 mg capsule 1,200 cap PO TID 05/31/22 lisinopril 40 mg tablet 40 tab PO DAILY 05/31/22 metformin 1,000 mg tablet 1,000 tab PO BID 05/31/22 tiotropium bromide 1.25 2 puff inhalation DAILY 08/27/22 mcg/actuation mist for inhalation (Spiriva Respimat) omeprazole 40 mg capsule,delayed 40 mg PO DAILY 01/14/23 release Current Visit Medications: Current Medications Generic Name Dose Route Start Last Admin Trade Name Freq PRN Reason Stop Dose Admin Ringer's Solution 1,000 mls @ 80 mls/hr 01/16/23 06:00 IV 01/16/23 23:59 INFUSION ANA IV Miscellaneous Supplies 1 each 01/16/23 06:00 Iv Access IV 01/16/23 23:59 DIRECTED [facility] Sodium Chloride 0 ml 01/16/23 06:00 Normal Saline Flush 10 Ml Syr IV 01/16/23 23:59 PRN PRN Sodium Chloride 0 ml 01/16/23 06:00 Normal Saline 10 Ml Vial IJ 01/16/23 23:59 DIRECTED PRN Sterile Water 0 ml 01/16/23 06:00 Water,Injection,Sterile 10 Ml Vial IJ 01/16/23 23:59 DIRECTED PRN PFSH Active Problems Active Problems: Problem Status Onset Code Dysphagia R13.10 Medical History Medical History Asthma Chronic diarrhea Chronic fatigue CKD (chronic kidney disease) Dyspnea on exertion Fibromyalgia Hair loss Hypertension Hypertriglyceridemia Interstitial lung disease Iron deficiency anemia Right adrenal mass Tobacco dependence Type 2 diabetes mellitus Unintentional weight loss Vitamin D deficiency Surgical History Surgical History (Updated 01/16/23 @ 08:25 by Purvi Mcduffie RN) H/O: hysterectomy History of cholecystectomy Hx of section Hx of section Tobacco Smoking/Tobacco Use Status: Current every day Tobacco Type: cigarettes Alcohol Alcohol Intake: current Alcohol intake frequency: holidays/special occasions only Substance Use Substance use: Never Substance use type: does not use Vital Signs and Lab Results Vital Signs Most Recent Vital Signs in EMR: Temp Pulse Resp BP Pulse Ox 36.4 C L 82 18 124/55 L 97 01/16/23 08:03 01/16/23 08:03 01/16/23 08:03 01/16/23 08:03 01/16/23 08:03 Lab Results Blood Type / Crossmatch: No Data to Display Complete Blood Count: White Blood Count 12.46 10^3/uL (4.4-10.8) H 12/24/22 12:25 Red Blood Count 4.43 10^6/uL (3.93-5.22) 12/24/22 12:25 Hemoglobin 13.2 g/dL (11.2-15.7) 12/24/22 12:25 Hematocrit 39.9 % (36.0-46.0) 12/24/22 12:25 Platelet Count 369 10^3/uL (130-400) 12/24/22 12:25 Complete Metabolic Panel: Sodium 140 mmol/L (136-145) 12/24/22 12:25 Potassium 4.6 mmol/L (3.5-5.1) 12/24/22 12:25 Chloride 106 mmol/L (98-107) 12/24/22 12:25 Carbon Dioxide 22.7 mmol/L (21.0-32.0) 12/24/22 12:25 BUN 15 mg/dL (7-18) 12/24/22 12:25 Creatinine 1.2 mg/dL (0.55-1.02) H 12/24/22 12:25 Est GFR (CKD-EPI 2020) 53.46 (mL/min/1.73m2) 12/24/22 12:25 Magnesium 1.7 mg/dL (1.8-2.4) L 12/24/22 12:25 Calcium 9.1 mg/dL (8.5-10.1) 12/24/22 12:25 Albumin 3.5 g/dL (3.4-5.0) 12/24/22 12:25 Glucose 114 mg/dL (74-106) H 12/24/22 12:25 Hemoglobin A1c 6.1 % (<5.7) H 12/24/22 12:25 Liver Function Panel: Alanine Aminotransferase (ALT/SGPT) 18 U/L (14-59) 12/24/22 12: 25 Aspartate Amino Transf (AST/SGOT) 16 U/L (15-37) 12/24/22 12:25 Coagulation Panel: No Data to Display Cardiac Panel: No Data to Display Arterial Blood Gas: No Data to Display Venous Blood Gas: No Data to Display Pancreas Panel: No Data to Display Thyroid Panel: Thyroid Stimulating Hormone (TSH) 1.57 uIU/mL (0.36-3.74) 12/24 12:25 Infectious Disease: No Data to Display Blood Cultures: No Data to Display Toxicology Panel: No Data to Display Imaging and Studies Imaging and Studies Study information below may be from another EMR and interpreted by another provider. Please see original notes in EMR for more complete details. EKG Summary: 06/14: sinus. CT Summary: 09/13:table mild emphysematous and fibrotic changes Pulmonary Function Summary: 05/13: isolated severe diffusion defect. strongly positive methacholine challenge test. Anesthesia Assessment and Plan Anesthesia History Personal History: No History of Anesthesia Complications Family History: No Family History of Anesthesia Complications Exercise Tolerance Exercise Tolerance: Metabolic Equivalents>4 Cardiac & Pulmonary Exam Cardiac Exam: Normal S1/S2 Heart Sounds Pulmonary Exam: Clear Bilateral Breath Sounds Implantable Cardiac Device Does patient have a Pacemaker or an ICD?: No Airway Exam Known Difficult Airway: No Mallampati Class: 3 Mouth Opening: Normal (> 3cm) Thyromental Distance: Greater than 3 cm Neck Range of Motion: Full ROM Neck Circumference: Normal Teeth Condition: Normal Dentition ASA Classification ASA Score: ASA 3 Emergency Case?: No NPO Status NPO Status: NPO Clears >2 hours, Solids >8 hours Anesthesia Plan Resuscitation Status: Full Code Anesthesia Technique: General Anesthesia Airway Planned: Natural Airway Monitors Used: Standard Monitors Preoperative Comments:: 57 yo female for EGD possible dilation. Sig PMHx: HTN, asthma/LAYNE/ILD (recent prednisone 08/16) ,GERD (sleeps with hob slightly elevated), CKD, dm, fibro, smoker, occ EtOH. Previous Anes: - [facility] [place], prop, natural airway.
[2023-01-16 08:03] VITALS: BP 124/55; PULSE 82; RESP 18; TEMP 36.4; O2SAT 97
[2023-01-16 08:05] VITALS: BMI 32.2
--- NOTE | 2023-01-16 08:19 | PDOC.DSDIS_ITS ---
Date of service: 01/16/23 Time of Service: 09:47 Discharge Plan Disposition Patient Disposition: Home Discharge Details Reason For Visit: Dysphagia Attending Provider: Marta Alvarez Primary Care Provider: Hayley Salinas Home Meds and New Rx's Prescriptions: New omeprazole 40 mg capsule,delayed release(DR/EC) 40 mg PO BID Qty: 60 0RF Continued Spiriva Respimat 1.25 mcg/actuation mist 2 puff inhalation DAILY cyclobenzaprine 10 mg tablet 10 tab PO HS Patient Comments: TAKE ONE TABLET BY MOUTH THREE TIMES A DAY NEEDED atorvastatin 40 mg tablet 40 tab PO DAILY Patient Comments: TAKE ONE TABLET BY MOUTH EVERY DAY gabapentin 400 mg capsule 1,200 cap PO TID Patient Comments: TAKE 3 CAPSULES BY MOUTH 3 TIMES DAILY amlodipine 5 mg tablet 1 tab PO DAILY Patient Comments: TAKE ONE TABLET BY MOUTH EVERY DAY metformin 1,000 mg tablet 1,000 tab PO BID Patient Comments: TAKE ONE TABLET BY MOUTH TWICE A DAY fluticasone propion-salmeterol [Advair Diskus] 500-50 mcg/dose blister with device 1 ea INHALATION BID Patient Comments: INHALE 1 PUFF BY MOUTH EVERY 12 HOURS albuterol sulfate [ProAir HFA] 90 mcg/actuation HFA aerosol inhaler 2 inh INHALATION PRN PRN Patient Comments: INHALE 1-2 PUFFS BY MOUTH EVERY 4 TO 6 HOURS NEEDED lisinopril 40 mg tablet 40 tab PO DAILY Patient Comments: TAKE ONE TABLET BY MOUTH EVERY DAY duloxetine 60 mg capsule,delayed release(DR/EC) 1 cap PO DAILY Patient Comments: TAKE ONE CAPSULE BY MOUTH EVERY DAY ferrous gluconate 324 mg (38 mg iron) tablet 324 mg PO DAILY Patient Comments: TAKE ONE TABLET BY MOUTH EVERY DAY cholecalciferol (vitamin D3) 50 mcg (2,000 unit) capsule 1 cap PO DAILY Patient Comments: TAKE ONE CAPSULE BY MOUTH EVERY DAY aspirin 325 mg Tablet 81 mg PO DAILY Discontinued omeprazole 40 mg capsule,delayed release(DR/EC) 40 mg PO DAILY Discharge Instructions Instructions: Gastritis (DC), Diet for Stomach Ulcers and Gastritis (ED), Esophagitis (DC) Additional Instructions: Findings: Inflammation of the stomach and esophagus Thick discharge on and around your vocal cords Follow up: 2 weeks New Medications: Please increase the omeprazole to 40 mg 2 x a day Diet: please follow a low acid diet (see information given) Please continue to try and stop smoking Please call if you develop: fevers >101.5 Nausea or Vomiting Abdominal pain that is not transient Rectal bleeding that is more then a tbsp A hard abdomen and inability to pass gas DAY SURGERY UNIT POST ENDOSCOPY INSTRUCTIONS Instructions for everyone who is given Anesthesia: For your safety, please do the following for the next 24 Hours: a. Do not drive or operate dangerous equipment b. Do not drink alcohol beverages or use any recreational drugs for the first 24 hours or while taking pain medications. The medications in your body may have a reaction that can be dangerous. c. Do not make any important decisions or sign any important papers 1. Generally there are no restrictions on your activity after a day or so has gone by, but you may feel a bit fatigued for a few days. 2. After you arrive home you may have a light meal and return to a normal diet as you can tolerate it without feeling sick to your stomach. 3. After surgery, you may feel pain or discomfort. This should be only transient, but if it persists please contact your doctor. 4. If there are any questions regarding the findings of your procedure, please feel free to contact your doctor. 6. If you are unable to contact your doctor with a problem, contact the hospital at [phone]. 7. Continue all your regular medications unless directed otherwise. I understand the above instructions and have no questions. Signature of Patient or Responsible Adult Escort Date/Time Name of Responsible Adult Escort Signature of Nurse Date/Time Referrals: Marta Alvarez MD [ [facility]YSICIAN] - 01/28/23 8:15 am Activity:: Activity as Tolerated Diet:: low acid Discharge Orders Discharge Orders: Discharge Order (Routine); Ordered 01/16/23 Ordered By: Marta Alvarez DS: Diagnosis Discharge Diagnosis (1) Dysphagia: Status: Acute (2) Gastritis: Status: Acute Asessment and Plan: Patient is seen and examined after their endoscopy. Patient has minimal sore throat. She has been able to tolerate liquids. She does not have any Nausea or Vomiting. She is not having any chest pain. She did have some shortness of breath and decreased Sats. After some deep breathing her SOB resolved and her guillaume came back up to 94% on Room air. She has been able to pass gas and are not having any abdominal pain or distention. She has not vomited any blood. The vital signs have been stable-see nursing notes. We discussed findings on their endoscopy We reviewed the importance of lifestyle modifications- see diet recommendations We reviewed any new medications that the patient may be prescribed- see medicine reconciliation. Patient will either be sent a letter with the biopsy results or follow up in the office- see discharge instructions Patient was given explicit instructions for emergency follow up post endoscopy- see discharge instructions Patient verbalized understanding and was discharged in stable and satisfactory condition. See nursing notes. (3) GERD with esophagitis: Status: Acute
--- NOTE | 2023-01-16 08:19 | W.PM.ENDDOP ---
Date of service: 01/16/23 Time of Service: 10:01 Endoscopy Report DATE OF PROCEDURE: 01/16/23 PRE-OP DIAGNOSIS: dysphagia POST-OP DIAGNOSIS: other (gastritis and esophagitis) PROCEDURE: EGD with biopsy SURGEON: Marta Alvarez ANESTHESIA TYPE: General:No Airway ESTIMATED BLOOD LOSS: 3 PATHOLOGY: other (Bx of stomach and GE junction) COMPLICATIONS: None DISPOSITION: same day INDICATIONS: Nancy is a pleasant 57-year-old female with a history of dysphagia for the last couple of years.? It has slowly been getting worse.? She also started to note voice changes about a year ago.? She does not have any typical symptoms of heartburn or reflux at this time.? She did start omeprazole 40 mg daily about a week ago but so far has not noted any differences.? She did have a barium swallow which showed a small abnormal web in the anterior aspect of the upper esophagus at approximately C5 level.? We discussed the differential diagnosis of dysphagia.? The most common is reflux, other reasons would be esophageal dysfunction.? We quickly discussed having to do a manometry study as well as a pH study if her EGD does not find any inflammation in her esophagus or stomach. I discussed the procedure in detail with her using a drawing.? We reviewed the risks, benefits and complications of the procedure.? Risks, benefits and complications have been reviewed. Complications include but are not limited to bleeding, pain, perforation, sore throat, aspiration, and adverse reaction to the medications.? Questions were entertained and answered to their satisfaction and they wished to proceed. No guarantees were given or implied.? The patient seemed to have a good understanding of the procedure and its possible complications. FINDINGS: Inflammation of the stomach and GE junction. I did not see a web at the proximal esophagus There was thick mucus covering the vocal cords and the proximal esophagus PROCEDURE DESCRIPTION: After informed consent was obtained the patient was take to the procedure room and placed in a supine position. Monitors were applied and a time out was done. The patients name, date of , procedure type, allergies to medications and metal in their body was reviewed. A bite block was placed and the patient was sedated. Once sedated and comfortable the gastroscope was advanced through the oropharynx. There was thick mucus noted coating the vocal cords. No lesions were noted. The scope was advanced into the esophagus. The proximal and mid-esophagus were normal. There was some thick mucus noted in the proximal esophagus. In the distal esophagus there was inflammation noted. The scope was advanced into the stomach and through the pylorus into the 3rd portion of the duodenum. The duodenum was noted to be normal. The scope was retracted back into the stomach. There was moderate inflammation noted. No polyps were noted. Biopsies were done to rule out H. pylori. There were no ulcers or masses. The scope was retroflexed. The cardia and fundus were noted to be normal. There was no hiatal hernia noted. The scope was retracted back into the esophagus and biopsies were done of the GE junction to rule out Soto's. The Z line was regular. The GE junction was at 40 cm. Biopsies were done at 40 cm and 38 cm. The scope was removed and the patient was woken up and taken back to [facility] in stable condition. Follow up: 2 weeks
[2023-01-16] MEDS: Lactated Ringers 1,000 ML 80 ML IV (08:40)
--- NOTE | 2023-01-16 09:06 | PGE_ITS ---
Date of Service Date of service: 01/16/23 Time of Service: 09:06 Assessment and Plan Assessment and plan (1) Dysphagia: Status: Acute Assessment and plan: Nancy is a pleasant 57-year-old female with a history of dysphagia for the last couple of years.? It has slowly been getting worse.? She also started to note voice changes about a year ago.? She does not have any typical symptoms of heartburn or reflux at this time.? She did start omeprazole 40 mg daily about a week ago but so far has not noted any differences.? She did have a barium swallow which showed a small abnormal web in the anterior aspect of the upper esophagus at approximately C5 level.? We discussed the differential diagnosis of dysphagia.? The most common is reflux, other reasons would be esophageal dys function.? We quickly discussed having to do a manometry study as well as a pH study if her EGD does not find any inflammation in her esophagus or stomach. I discussed the procedure in detail with her using a drawing.? We reviewed the risks, benefits and complications of the procedure.? Risks, benefits and complications have been reviewed. Complications include but are not limited to bleeding, pain, perforation, sore throat, aspiration, and adverse reaction to the medications.? Questions were entertained and answered to their satisfaction and they wished to proceed. No guarantees were given or implied.? The patient seemed to have a good understanding of the procedure and its possible complications. Subjective Subjective Interval history since last seen: From H &P: Mrs Diego is a pleasant 57-year-old female who comes in today at the request of her primary care physician to discuss having an upper endoscopy done.? She tells me that she started having difficulty swallowing about 2 years ago but it has progressively gotten worse.? About a year ago she also started to notice her voice was changing and becoming more raspy.? She does not complain of abdominal pain.? She denies any burning sensation in her epigastric area or in the chest.? She was started about a week ago on omeprazole 40 mg daily.? She does not see any improvement at this point.? She also complains of getting intermittent neck spasms on the left side and wonders whether that has anything to do with what is going on in her stomach and esophagus.? She did have a barium swallow done which I have reviewed today.? It showed a thin abnormal web in the anterior aspect of the uppermost esophagus at approximately C5 level. Her past medical history is significant for diabetes, last hemoglobin A1c was 6.1.? She also has high blood pressure and takes lisinopril and amlodipine for that.? She has hyperlipidemia and is on atorvastatin.? There is a diagnosis of chronic kidney disease as well.? Looking at her creatinine it seems to go from normal to high.? Her last 1 was 1.2.? She denies any chest pain or palpitation s.? She denies any history of heart attacks or strokes in the past.? She does still smoke and has a diagnosis of asthma and dyspnea with exertion.? She is on a couple of inhalers which do seem to help per patient.? She is on a baby aspirin which she was not asked to stop and her procedure is on Saturday.? She has had multiple colonoscopies and has had no issues with the anesthetic given. Patient seen in [facility] prior to her procedure. She has no new questions. She has had no new symptoms or concerns since I saw her. Exam Const General: cooperative, comfortable and no acute distress Nutritional Appearance: average body habitus Orientation: alert and oriented x3 HENMT Head: normocephalic and atraumatic Resp Effort & Inspection: normal respiratory effort Auscultation: clear to auscultation bilaterally Cardio Rate: regular rate Rhythm: regular rhythm Objective Last Vital Signs Temp 97.5 F L 01/16/23 08:03 Pulse 82 01/16/23 08:03 Resp 18 01/16/23 08:03 BP 124/55 L 01/16/23 08:03 Pulse Ox 97 01/16/23 08:03 Time Spent with Patient Time Spent with Patient: <25 minutes Time was spent: counseling the patient
--- NOTE | 2023-01-16 09:21 | STOM_PTH ---
PATIENT: Nancy Diego LOC: [facility] U#:[id number] AGE/SX: 57/F ROOM: RE01/16/[address]: Marta Alvarez MD : [id number] BED: DIS: 01/16/2023 SPEC #: [id number] RECD: 01/16/23 12:48 STATUS: RUTH ANN REYosef #: [id number] OSWALD: 01/16/23 09:[address]: Marta Alvarez DEPT: Surgical Specimen RECD BY: Olga Nesbitt ENTERED: 01/16/23 12:49 SP TYPE: STOMACH OTHR DR: Hayley Salinas Tissues: 1 - STOMACH BIOPSY 2 - STOMACH BIOPSY 3 - ESOPHAGUS BIOPSY 4 - ESOPHAGUS BIOPSY Procedures: GROSS AND MICRO LEVEL 4 IMMUNOPEROXIDASE STAIN Comments: [id number]
[2023-01-16 09:34] VITALS: BP 102/48; PULSE 85; RESP 16; TEMP 36.2; O2SAT 96
--- NOTE | 2023-01-16 09:50 | W.ANESPOSTOP ---
Postoperative Evaluation Date, Time and Location Date Performed: 01/16/23 Time Performed: 09:50 Patient Location: Day Surgery Unit Vital Signs Most Recent Imported Vital Signs: Most Recent Vital Signs Temp Pulse Resp BP Pulse Ox 36.2 C L 85 16 102/48 L 96 01/16/23 09:34 01/16/23 09:34 01/16/23 09:34 01/16/23 09:34 01/16/23 09:34 Pain Score Most Recent Pain Score: Most Recent Pain Score Pain Level 0 01/16/23 09:34 Assessment Mental Status: Awake (Alert & Oriented to Patient Baseline) Airway and Respiratory Function: Patent airway with normal (patient baseline) respiratory exam Cardiovascular Function: Hemodynamically Stable Hydration Status: Adequately Hydrated Nausea & Vomiting: No Nausea or Vomiting Pain: Pt. Denies Any Pain Peripheral Nerve Block: Patient did not receive a nerve block
[2023-01-16 10:11] VITALS: BP 107/54; PULSE 92; RESP 18; TEMP 36.1; O2SAT 98
== END 2023-01-16 10:12 | disposition home or self-care (01) ==
PROVIDERS: Visit Provider Surgery
PROC: 0D758ZZ Dilation of Esophagus, Via Natural or Artificial Opening Endoscopic (ICD-10-PCS; CPT 43239; principal; 2023-01-16 09:30)
DX: R13.10 Dysphagia, unspecified (principal); B37.81 Candidal esophagitis; K29.70 Gastritis, unspecified, without bleeding; K31.89 Other diseases of stomach and duodenum; K22.89 Other specified disease of esophagus
CPT/HCPCS: 43239; 88305; 88361; J2001; J2704

== ENCOUNTER 2023-04-01 11:51 | Outpatient (REF) | payer MEDICAID, SELFPAY ==
[2023-04-01 18:39] LABS: Abs Immature Grans 0.09 10^3/uL (0.0-0.06); Absolute Basophil Count 0.11 10^3/uL (0.0-0.2); Absolute Lymphocyte Count 3.76 10^3/uL (1.2-3.4); Absolute Monocyte Count 0.65 10^3/uL (0.1-0.8); Basophils % 0.8; Eosinophils % 1.8; HCT 42.9 % (36.0-46.0); HGB 14.1 g/dL (11.2-15.7); Immature Grans % 0.7; Lymphocytes % 27.7; MCH 28.8 pg (27.0-33.0); MCHC 32.9 % (32.0-36.0); MCV 88 fL (80-95); MPV 9.6 fL (8.0-11.0); Monocytes % 4.8; Neutrophils % 64.2; Platelet Count 373 10^3/uL (130-400); RBC 4.89 10^6/uL (3.93-5.22); RDW 14.8 % (11.7-14.6); RDW-SD 47.8 fL; WBC 13.59 10^3/uL (4.4-10.8)
[2023-04-01 18:42] LABS: Absolute Eosinophil Count 0.24 10^3/uL (0.0-0.7); Absolute Neutrophil Count 8.72 10^3/uL (1.2-6.7)
[2023-04-01 18:53] LABS: Iron 31 ug/dL (50-170); Total Iron Binding Capacity 316 ug/dL (250-450); Transferrin Sat 10 % (15-50)
[2023-04-01 18:58] LABS: ALT 15 U/L (14-59); AST 13 U/L (15-37); Albumin 3.5 g/dL (3.4-5.0); Alkaline Phosphatase 129 U/L (46-116); BUN 15 mg/dL (7-18); Bilirubin, Total 0.3 mg/dL (0.2-1.0); CREATININE 1.1 mg/dL (0.55-1.02); Chloride 103 mmol/L (98-107); Estimated GFR 59.34 (mL/min/1.73m2); Glucose 122 mg/dL (74-106); Magnesium 1.5 mg/dL (1.8-2.4); Potassium 4.5 mmol/L (3.5-5.1); Sodium 138 mmol/L (136-145); Total Protein 7.9 g/dL (6.4-8.2)
[2023-04-01 19:11] LABS: Hemoglobin A1C 6.5 % (<5.7)
== END 2023-04-01 11:52 | disposition home or self-care (01) ==
LOC: NCHCN 11:51
PROVIDERS: Visit Provider Nurse Practitioner Family
DX: E11.9 Type 2 diabetes mellitus without complications (principal); I10 Essential (primary) hypertension; N18.31 Chronic kidney disease, stage 3a; Z86.2 Personal history of diseases of the blood and blood-forming organs and certain disorders involving the immune mechanism; R25.2 Cramp and spasm
CPT/HCPCS: 80053; 83036; 83540; 83550; 83735; 85025

== ENCOUNTER 2023-08-19 12:44 | Outpatient (REF) | payer MEDICAID, SELFPAY ==
[2023-08-19 15:30] LABS: Abs Immature Grans 0.09 10^3/uL (0.0-0.06); Absolute Basophil Count 0.08 10^3/uL (0.0-0.2); Absolute Eosinophil Count 0.26 10^3/uL (0.0-0.7); Absolute Lymphocyte Count 3.57 10^3/uL (1.2-3.4); Absolute Monocyte Count 0.69 10^3/uL (0.1-0.8); Absolute Neutrophil Count 5.53 10^3/uL (1.2-6.7); Basophils % 0.8; Eosinophils % 2.5; HCT 41.6 % (36.0-46.0); HGB 13.7 g/dL (11.2-15.7); Immature Grans % 0.9; Lymphocytes % 34.9; MCH 28.2 pg (27.0-33.0); MCHC 32.9 % (32.0-36.0); MCV 86 fL (80-95); MPV 9.1 fL (8.0-11.0); Monocytes % 6.8; Neutrophils % 54.1; Platelet Count 334 10^3/uL (130-400); RBC 4.86 10^6/uL (3.93-5.22); RDW 15.5 % (11.7-14.6); RDW-SD 48.4 fL; WBC 10.22 10^3/uL (4.4-10.8)
[2023-08-19 15:48] LABS: ALT 28 U/L (14-59); AST 18 U/L (15-37); Albumin 3.4 g/dL (3.4-5.0); Alkaline Phosphatase 152 U/L (46-116); Anion Gap 11.3 mmol/L (3-11); BUN 17 mg/dL (7-18); Bilirubin, Total 0.6 mg/dL (0.2-1.0); CO2 25.7 mmol/L (21.0-32.0); Calcium 9.2 mg/dL (8.5-10.1); Chloride 103 mmol/L (98-107); Estimated GFR 66.53 (mL/min/1.73m2); Glucose 99 mg/dL (74-106); Magnesium 1.9 mg/dL (1.8-2.4); Potassium 5.2 mmol/L (3.5-5.1); Sodium 140 mmol/L (136-145); Total Protein 7.6 g/dL (6.4-8.2)
[2023-08-19 15:58] LABS: Hemoglobin A1C 6.8 % (<5.7)
[2023-08-19 16:50] LABS: Iron 37 ug/dL (50-170); Total Iron Binding Capacity 334 ug/dL (250-450); Transferrin Sat 11 % (15-50)
== END 2023-08-19 12:45 | disposition home or self-care (01) ==
LOC: NCHCN 12:44
PROVIDERS: PCP Nurse Practitioner Family; Visit Provider Nurse Practitioner Family
DX: E11.9 Type 2 diabetes mellitus without complications (principal); D50.9 Iron deficiency anemia, unspecified; I10 Essential (primary) hypertension
CPT/HCPCS: 80053; 82306; 83036; 83540; 83550; 83735; 85025

== ENCOUNTER → 2023-11-04 03:34 | Outpatient (CLI) | payer MEDICAID, SELFPAY ==
--- NOTE | 2023-11-04 | DI.MAMMO_ITS ---
Exam(s) MAMMO SCREENING EXAM: MAMMO SCREENING CLINICAL HISTORY: SCREENING, Z12.39 TECHNIQUE: Bilateral full field digital CC and MLO mammographic images were obtained with 3D tomosyn thesis and utilizing computer aided detection (CAD). COMPARISON: Available for comparison. FINDINGS: Masses/Architectural Distortion: None seen. Microcalcifications: No suspicious pleomorphic-type are seen. Skin Thickening/Nipple Retraction: None. IMPRESSION: 1. No significant interval change with no specific features of malignancy noted. 2. Unless there is more urgent need, screening mammography is recommended, as per [place] [employer] guidelines. BI-RADS Category 1 - Negative Breast Density - Category B - Scattered areas of fibroglandular density Breast density category C or D implies that the patient has dense breast tissue. Dense breast tissue is very common and is not abnormal but dense breast tissue can make it harder to find cancer on a ma mmogram. Also, dense breast tissue may increase their breast cancer risk. This information about the result of the mammogram report was provided to the patient to raise their awareness. Use this report when you speak with the patient about their risks for breast cancer, which includes their family hist ory. At that time, you may recommend for more screening tests (Ultrasound or MRI) as they might be us eful based on their risk. A negative radiographic report should not delay biopsy if a dominant or clinically suspicious mass is present. Up to ten percent of cancers are not identified on mammography. A negative report may reinforce clinical impression. Adenosis and dense breasts may obscure an underlying neoplasm. False positive reports average 6 to 10%. Patient will receive a letter notifying them of these results.
== END ==
PROVIDERS: PCP Nurse Practitioner Family; Visit Provider Nurse Practitioner Family
DX: Z12.31 Encounter for screening mammogram for malignant neoplasm of breast (principal)
CPT/HCPCS: 77063; 77067

== ENCOUNTER → 2023-11-12 03:50 | Outpatient (CLI) | payer MEDICAID, SELFPAY ==
--- NOTE | 2023-11-12 | DI.CTLCSR_ITS ---
Exam(s) CT CHEST LUNG CANCER SCREEN EXAM: CT CHEST LUNG CANCER SCREEN CLINICAL HISTORY: F17.200 Nicotine dependence TECHNIQUE: Imaging Protocol: Axial computed tomography images with coronal and sagittal reformatted images were created and reviewed. Low dose screening protocol. COMPARISON: CT CT CHEST HIGH RESOLUTION from 09/17/2022 FINDINGS: Tracheobronchial tree: No bronchiectasis or mucus plugging. Mediastinum and E[place]: Stable mildly enlarged mediastinal lymph nodes. Pulmonary parenchyma: No consolidation or dominant measurable mass. Mild emphysematous changes. Mild fibrotic changes. Multifocal air trapping. Lung Nodules: None. Pleura: No effusion. No pneumothorax. Heart: The heart is not dilated. Eafk-je-oivagspq coronary artery calcifications are seen. Aorta: Thoracic aorta non-dilated. Mild atherosclerotic changes. Upper abdomen: Unremarkable. Bones: Unremarkable for age. Soft Tissues: Unremarkable. IMPRESSION: No suspicious pulmonary nodules. Lung RADS Cat 1 - Negative: No nodules and definitely benign nodules Lung-RADS 1.0 CATEGORIES: Category 0 - Prior chest CT exam(s) being located for comparison. Category 1 - Annual screening in 12 months. No nodules or definitely benign nodules. Category 2 - Annual screening in 12 months. Benign appearance. Nodules with low likelihood of becomin g active cancer. Category 3 - 6-month follow-up. Probably benign. Short-term follow-up suggested. Nodules with low lik elihood of becoming active cancer. Category 4A - 3-month follow-up and CT/PET if >8 mm in size. Suspicious finding. Findings which requi re additional testing. Category 4B - Findings which require additional testing and tissue sampling. Category 4X - Category 3 or 4 nodules with additional features or imaging findings that increases the suspicion of malignancy. Modifier S- Potentially clinically significant findings (non lung cancer) RADIATION DOSE DELIVERED: 80.1mGy.cm Total DLP DATA REPOSITORY: All CT scans at this facility are submitted to the National Radiology Data Registry (NRDR) Dose Index Registry (DIR) with the [employer] (ACR). RADIATION OPTIMIZATION: All CT scans at this facility use at least one of these dose optimization te chniques: automated exposure control; mA and/or kV adjustment per patient size (includes targeted exa ms where dose is matched to clinical indication); or iterative reconstruction.
== END ==
PROVIDERS: PCP Nurse Practitioner Family; Visit Provider Nurse Practitioner Family
DX: Z12.2 Encounter for screening for malignant neoplasm of respiratory organs (principal); F17.210 Nicotine dependence, cigarettes, uncomplicated
CPT/HCPCS: 71271

== ENCOUNTER 2024-04-03 15:53 | Outpatient (REF) | payer MEDICAID, SELFPAY ==
[2024-04-03 15:39] LABS: Abs Immature Grans 0.06 10^3/uL (0.0-0.06); Absolute Basophil Count 0.08 10^3/uL (0.0-0.2); Absolute Eosinophil Count 0.15 10^3/uL (0.0-0.7); Absolute Neutrophil Count 6.05 10^3/uL (1.2-6.7); Basophils % 0.8 %; Eosinophils % 1.5 %; HCT 39.9 % (36.0-46.0); HGB 13.1 g/dL (11.2-15.7); Immature Grans % 0.6 %; Lymphocytes % 33.8 %; MCH 28.4 pg (27.0-33.0); MCHC 32.8 % (32.0-36.0); MCV 86 fL (80-95); MPV 9.2 fL (8.0-11.0); Monocytes % 4.8 %; Neutrophils % 58.5 %; Platelet Count 374 10^3/uL (130-400); RBC 4.62 10^6/uL (3.93-5.22); RDW 15.3 % (11.7-14.6); RDW-SD 48.6 fL; WBC 10.34 10^3/uL (4.4-10.8)
--- OUTSIDE RECORDS SUMMARY | 2024-04-03 16:03 | XMS_ITS | Encounter Summary ---
Author Organization [facility] [place] [address] Care Team Providers Care Assembly Machine Offbearer Name Role Phone Brittany Saini APRN Primary Care Provider [phone] Encounter Details Date Type Department Care Team (Late st Contact Info) Description 11/06/2021 Telephone [place] [phone] Rachel Tyler Social History Tobacco Use Types Packs/Day Years Used Date Smoking Tobacco: Every Day Cigarettes Smokeless Tobacco: Never Alcohol Use Standard Drinks/Week Comments No 0 (1 standard drink = 0.6 oz pur e alcohol) Sex and Gender Information Value Date Recorded Sex Assigned at Not on file Gender Identity Not on file Sexual Orientation Not on file documented as of this encounter Miscellaneous Notes * Telephone Encounter - Rachel Tyler - 11/06/2021 3:48 PM EDT called to resched september appt w/cardona called 1 x documented in this encounter Plan of Treatment Not on file documented as of this encounter Visit Diagnoses Not on filedocumented in this encounter Care Teams Assembly Machine Offbearer Relationship Specialty Start Date End Date Brittany Saini APRN [address] [place] [address] PCP - General Family Medicine 09/05/20 documented as of this encounter
--- OUTSIDE RECORDS SUMMARY | 2024-04-03 16:03 | XMS_ITS | Encounter Summary ---
Author Organization [facility] [place] [address] Care Team Providers Care Application Developer Manager Name Role Phone Parveen Brittany AUTO SERVICE INSTRUCTOR Primary Care Provider [phone] Encounter Details Date Type Department Care Team (Late st Contact Info) Description 08/21/2021 Telephone [facility] [place] [address] Marcelle Arnold Social History Tobacco Use Types Packs/Day Years [...] encounter Miscellaneous Notes * Telephone Encounter - Marcelle Arnold - 08/21/2021 3:02 PM EST Ms. Diego is planning to stop smoking tomorrow, . She will She did not receive the rx for 21mg. Nicotine patches which was requested from Brittany Saini. Ms. Diego will call 08/22 to provide an update on her status and an update on her receipt of nicotine patches from [facility]. documented in this encounter Plan of Treatment Not on file documented as of this encounter Visit Diagnoses Not on filedocumented in this encounter Care Teams Application Developer Manager Relationship Specialty Start Date End Date Brittany Saini APRN [address] [place] [address] PCP - General Family Medicine 09/05/20 documented as of this encounter
--- OUTSIDE RECORDS SUMMARY | 2024-04-03 16:03 | XMS_ITS | Referral Summary ---
Author Organization [facility] Address [address] [place] [address] Care Team Providers Care Green Chain Operator Name Role Phone Amelia Vasquez SENIOR SYSTEMS PROGRAMMER Primary Care Provider [phone] Social History Tobacco Use Types Packs/Day Years Used Date Smoking Tobacco: Never Assessed Sex and Gender Information Value Date Recorded Sex Assigned at Not on file Gender Identity Not on file Sexual Orientation Not on file Plan of Treatment Not on file Nancy Diego Personal/Family Self 1965 [address] [place] [address] Nancy Diego Personal/Family Self [address] [place] [address] Nancy Diego Personal/Family Self 1965 [address] [place] [address] Care Teams Green Chain Operator Relationship Specialty Start Date End Date Amelia Vasquez, SENIOR SYSTEMS PROGRAMMER [address] [place] [address],[address] [phone] PCP - General 04/27/15
--- OUTSIDE RECORDS SUMMARY | 2024-04-03 16:03 | XMS_ITS | Encounter Summary ---
Author Organization [facility] [place] [address] Care Team Providers Care Professional Sports Scout Name Role Phone Brittany Saini APRN Primary Care Provider [phone] Encounter Details Date Type Department Care Team (Late st Contact Info) Description 11/14/2021 Telephone [place] [phone] Rachel Tyler Social History Tobacco Use Types [...] * Telephone Encounter - Rachel Tyler - 11/14/2021 8:30 AM EDT offered to resched Dr Galicia's appt called 2 x documented in this encounter Plan of Treatment Not on file documented as of this encounter Visit Diagnoses Not on filedocumented in this encounter Care Teams Professional Sports Scout Relationship Specialty Start Date End Date Brittany Saini APRN [address] [place] [address] PCP - General Family Medicine 09/05/20 documented as of this encounter
--- OUTSIDE RECORDS SUMMARY | 2024-04-03 16:03 | XMS_ITS | Encounter Summary ---
Author Organization [facility] Address [address] [place] [address] Care Team Providers Care Forge Press Operator Name Role Phone Amelia Vasquez CLIENT EVALUATOR Primary Care Provider [phone] Encounter Details Date Type Department Care Team (Late st Contact Info) Description 06/22/2020 Lab Requisition [facility] Pathology & Laboratory Medicine - [address] [address] Outr Resulting Lab, Provider Social History Tobacco Use Types Packs/Day Years Used Date Smoking Tobacco: Never Assessed Sex and Gender Information Value Date Recorded Sex Assigned at Not on file Gender Identity Not on file Sexual Orientation Not on file documented as of this encounter Plan of Treatment Not on file documented as of this encounter Procedures Procedure Name Priority Date/Time Associated Diagnosis Comments ALPHA 1 ANTITRYPSIN Routine 06/21/2020 1 0:45 EST documented in this encounter Results * ALPHA 1 ANTITRYPSIN (06/21/2020 10:45 EST) Alpha 1 Antitrypsin 160 90 - 200 mg/dL 06/23/2020 9:37 EST [facility] Blood VENOUS BLOOD / Unknown 06/21/2020 10:45 EST 06/22/2020 16:07 EST Provider Outr Resulting Lab CHEMISTRY & BLOOD GAS ORDERABLES [facility] [address] [place] [address] documented in this encounter Visit Diagnoses Not on filedocumented in this encounter Care Teams Forge Press Operator Relationship Specialty Start Date End Date Amelia Vasquez NP [address] [place] [phone] PCP - General 04/27/15 documented as of this encounter
--- OUTSIDE RECORDS SUMMARY | 2024-04-03 16:03 | XMS_ITS | Encounter Summary ---
Author Organization [facility] [place] [address] Care Team Providers Care Brickmason Supervisor Name Role Phone Brittany Saini APRN Primary Care Provider [phone] Encounter Details Date Type Department Care Team (Late st Contact Info) Description 08/15/2021 Orders [place] [address] Maya Kaye RN Social History Tobacco Use Types Packs/Day Years [...] on filedocumented in this encounter Care Teams Brickmason Supervisor Relationship Specialty Start Date End Date Brittany Saini APRN [address] [place] [address] PCP - General Family Medicine 09/05/20 documented as of this encounter
--- OUTSIDE RECORDS SUMMARY | 2024-04-03 16:03 | XMS_ITS | Encounter Summary ---
Author Organization [facility] [place] [address] Care Team Providers Care Churn Driller Helper Name Role Phone Brittany Saini APRN Primary Care Provider [phone] Reason for Visit * Reason Onset Date Comments Other 08/08/2021 Confirming PCP a pmnt regarding adrenal myolipoma Encounter Details Date Type Department Care Team (Late st Contact Info) Description 08/08/2021 Telephone Pulmonology at [facility] [place] [phone] Baylee Slaughter RN Other (Confirming PCP apmnt regarding adrenal myolipoma) Social History Tobacco Use Types Packs/Day Years [...] encounter Miscellaneous Notes * Telephone Encounter - Baylee Slaughter RN - 08/08/2021 9:14 AM EST I have called Brittany Saini APRN office, per Dr. Galicia request, confirming PCP apmnt regarding f/uto adrenal myolipoma Dx. neuropsychology service director confirms with me that Pt has f/u scheduled for 08/11/21, Pt has confirmed appointment with the office. They have also confirmed that they have the 07/20/[address] Galicia for review. I have requested a copy of OV notes after Pts f/u visit with Brittany Saini APRN. RN confirms she will send OV notes once signed. Baylee Slaughter RN Department of Pulmonary 5C, [facility] / Pager: [phone] documented in this encounter Plan of Treatment Not on file documented as of this encounter Visit Diagnoses Not on filedocumented in this encounter Care Teams Churn Driller Helper Relationship Specialty Start Date End Date Brittany Saini, GARY [address] [place] [address] PCP - General Family Medicine 09/05/20 documented as of this encounter
--- OUTSIDE RECORDS SUMMARY | 2024-04-03 16:03 | XMS_ITS | Encounter Summary ---
Author Organization [facility] Address [address] [place] [address] Care Team Providers Care Supervisor Line Department Name Role Phone Amelia Vasquez UNDERLINER Primary Care Provider [phone] Encounter Details Date Type Department Care Team (Late st Contact Info) Description 01/16/2023 Lab Requisition [facility] Pathology & Laboratory Medicine - [address] [address] Avtar Alvarez MD [address] [place] [address] [address] [place], [place] [id number] Gastro-esophageal reflux disease with esophagitis, without bleeding; Gastritis, unspecified, without bleeding; Dysphagia, unspecified Social History Tobacco Use Types Packs/Day Years Used Date Smoking Tobacco: Never Assessed Sex and Gender Information Value Date Recorded Sex Assigned at Not on file Gender Identity Not on file Sexual Orientation Not on file documented as of this encounter Plan of Treatment Not on file documented as of this encounter Procedures Procedure Name Priority Date/Time Associated Diagnosis Comments SURGICAL PATHOLOGY Today 01/16/2023 9: 21 EDT Gastro-esophageal reflux disease with esophagitis, without bleeding Gastritis, unspecified, without bleeding Dysphagia, unspecified documented in this encounter Results * SURGICAL PATHOLOGY (01/16/2023 9:21 EDT) Note to Patient The following pathology results have been interpreted by your pathologist and may be available to you before your health provider has had the opportunity to review them. Please allow time for your provider to receive these results and explore management options, if applicable. 01/18/2023 12:10 [facility] Final Diagnosis A. STOMACH, ANTRUM, BIOPSY: - Antral-type mucosa with chemical (reactive) gastropathy. B. STOMACH, BODY, BIOPSY: - Oxyntic-type mucosa with mild, non-specific lymphoplasmacytic inflammation. - Negative for Helicobacter pylori microorganisms by immunohistochemistr y. See comment. C. GASTROESOPHAGEAL JUNCTION, BIOPSY: - Squamocolumnar mucosa with acute inflammation. - Negative for intestinal metaplasia. - Negative for dysplasia. D. ESOPHAGUS, 38 CM, BIOPSY: - Pilar esophagitis. 01/18/2023 12:10 [facility] Diagnosis Comment Immunoperoxidase stains were performed on this case to further characterize the lesion. ANTIBODY(CLONE)(BLO CK):RESULT H pylori (Rabbit Monoclonal (SP48), [place]) (B1): Negative for organisms NOTE: One or more of the reagents used in immunoperoxidase testing in this case may not have been cleared or approved by the U.S. Food and Drug Administration (FDA). The FDA has determined that such clearance or approval is not necessary. These tests are used for clinical purposes. They should not be regarded as investigational or for research. These reagents' performance characteristics have been determined by The and/or by the referring laboratory. The positive and negative controls worked appropriately. If immunoperoxidase staining has been performed on alcohol fixed cytology specimens, which has not been fully validated, the assays should be interpreted with caution and correlated with clinical data. This laboratory is certified under the Clinical Laboratory Improvement Amendments of 1988 (CLIA-88) as qualified to perform high complexity clinical laboratory testing. 01/18/2023 12:10 [facility] Attestation By the signature below, the attending physician certifies that they have 1) personally conducted a gross and/or microscopic examination of the described specimen(s), and/or personally interpreted the results of laboratory testing of the described specimen(s), and 2) personally rendered or confirmed the above diagnosis. 01/18/2023 12:10 [facility] at 1210 Clinical History Dysphagia, reflux 01/18/2023 12:10 [facility] Gross Description A. Received in formalin labelled with proper patient identification (initials O, T) and antrum bx is a single barajas tissue (0.5 x 0.3 x 0.1 cm). Submitted intact in A1. B. Received in formalin labelled with proper patient identification (initials O, T) and body bx is a single barajas tissue (0.5 x 0.3 x 0.1 cm). Intact in B1. C. Received in formalin labelled with proper patient identification (initials O, T) and GE junction bx is a single barajas tissue (0.4 x 0.3 x 0.1 cm). Submitted intact in C1. D. Received in formalin labelled with proper patient identification (initials O, T) and esophageal bx @38 are 2 barajas-white tissues (0.1 x 0.1 x 0.1 cm and 0.2 x 0.1 x 0.1 cm). Submitted entirely in D1. ERNESTO REN([facility]) 01/17/2023 7:41 01/18/2023 12:10 EDT [facility] Performing Lab [facility] 01/18/2023 12:10 EDT [facility] Scanned Images 01/18/2023 12:10 EDT [facility] Tissue ENTIRE ESOPHAGUS / Unknown 01/16/2023 9:21 EDT 01/16/2023 18:20 EDT Tissue specimen (specimen) STOMACH STRUCTURE / Unknown 01/16/2023 9:21 EDT 01/16/2023 18:20 EDT Tissue specimen (specimen) ESOPHAGEAL STRUCTURE / Unknown 01/16/2023 9:21 EDT 01/16/2023 18:20 EDT Tissue specimen (specimen) ESOPHAGEAL STRUCTURE / Unknown 01/16/2023 9:21 EDT 01/16/2023 18:20 EDT Avtar Alvarez MD PATHOLOGY ORDERA KRYSTAL [facility] [address] [place] [address] documented in this encounter Visit Diagnoses Diagnosis Gastro-esophageal reflux disease with esophagitis, without bleeding Gastritis, unspecified, without bleeding Dysphagia, unspecified documented in this encounter Care Teams Supervisor Line Department Relationship Specialty Start Date End Date Amelia Vasquez, UNDERLINER [address] [place] [phone] PCP - General 04/27/15 documented as of this encounter
--- OUTSIDE RECORDS SUMMARY | 2024-04-03 16:03 | XMS_ITS | Encounter Summary ---
Author Organization [facility] Address [address] [place] [address] Care Team Providers Care Chemist Organic Name Role Phone Unavailable Primary Care Provider Unavailabl e Encounter Details Date Type Department Care Team (Late st Contact Info) Description 03/18/2002 Results Only [facility] [address] [place] [address] Laureen Reis MD [address] [place] [address] [place] [address] Social History Tobacco Use Types Packs/Day Years Used Date Smoking Tobacco: Never Assessed Sex and Gender Information Value Date Recorded Sex Assigned at Not on file Gender Identity Not on file Sexual Orientation Not on file documented as of this encounter Plan of Treatment Not on file documented as of this encounter Procedures Procedure Name Priority Date/Time Associated Diagnosis Comments CYTOPATHOLOGY Routine 03/18/2002 0:00 EDT documented in this encounter Results * CYTOPATHOLOGY (03/18/2002 0:00 EDT) Pathology Report: CYTOPATHOLOGY REPORT Reports generated via electronic interface contain original data; however they are lacking the format of the original report. Caution should be taken when reading/interpreti ng unformatted reports. Name: ? NANCY LAGUNAS ? Accession #: ? [id number] : ? 1965 (Age: 36) ??F ?Collect Date: ? 03/18/2002 Location: ? [facility] ? Receive Date: ? 03/19/2002 Provider: ?LAUREEN REIS MD Copy to: ? Specimen/Source: ?ThinPrep Pap Test, Vagina Last Menstrual Period: ? Treatment History: ? Hysterectomy: 1999 ? SPECIMEN ADEQUACY ? Satisfactory for Evaluation - assessment of transformation zone component not applicable ( e.g. atrophy, vaginal sample, hysterectomy) GENERAL CATEGORIZATION ? Negative for Intraepithelial Lesion or Malignancy ? Document reviewed and electronically signed by: ? DOMITILA Macias(ASCP) ? Report Date: ??03/26/2002 09:18 End of Report [facility] 03/18/2002 03/19/2002 Laureen Resi MD PATHOLOGY ORDERABLES [facility] [address] [place] [address] documented in this encounter Visit Diagnoses Not on filedocumented in this encounter
--- OUTSIDE RECORDS SUMMARY | 2024-04-03 16:03 | XMS_ITS | Encounter Summary ---
[place] [address] Care Team Providers Care Watch Parts Grinder Name Role Phone Brittany Saini APRN Primary Care Provider [phone] Reason for Referral * Consultation (Routine) - Closed Specialty Diagnoses / Procedures Referred By Dennis daniels Referred To Contact Endocrinology Diagnoses Adrenal mass Brittany Saini APRN [address] [place] [address] [facility] [address] [place] [phone] Referral ID Status Reason Start Date Expiration Date V isits Requested Visits Authorized [id number] Closed Consult, Test & Treat PCP Updated and/or Approved 08/11/2021 08/11/2022 6 6 Encounter Details Date Type Department Care Team (Late st Contact Info) Description 08/11/2021 [place] [phone] Brittany Saini APRN [address] [place], [place] [id number] Adrenal mass Social History Tobacco Use Types Packs/Day Years [...] as of this encounter Plan of Treatment Scheduled Referrals Name Type Priority Associated Diagnoses Order Schedule Referral to Endocrinology Outpatient Referral Routine Adrenal mass Ordered: 08/11/2021 documented as of this encounter Visit Diagnoses Diagnosis Adrenal mass Unspecified disorder of adrenal glands documented in this encounter Care Teams Watch Parts Grinder Relationship Specialty Start Date End Date Brittany Saini, GARY [address] [place] [address] PCP - General Family Medicine 09/05/20 documented as of this encounter
--- OUTSIDE RECORDS SUMMARY | 2024-04-03 16:03 | XMS_ITS | Encounter Summary ---
Author Organization [facility] [place] [address] Care Team Providers Care Requirements Manager Name Role Phone Brittany Saini GARY Primary Care Provider [phone] Encounter Details Date Type Department Care Team (Late st Contact Info) Description 08/17/2022 Telephone [place] [phone] Mariam Mello RMA Social History Tobacco Use Types Packs/Day Years [...] encounter Miscellaneous Notes * Telephone Encounter - Mariam Mello RMA - 08/17/2022 4:08 PM EST Phone call attempt made to pt unsuccessful. Allergies, meds & tobacco NOT reviewed. documented in this encounter Plan of Treatment Not on file documented as of this encounter Visit Diagnoses Not on filedocumented in this encounter Care Teams Requirements Manager Relationship Specialty Start Date End Date Brittany Saini APRN [address] [place] [address] PCP - General Family Medicine 09/05/20 documented as of this encounter
--- OUTSIDE RECORDS SUMMARY | 2024-04-03 16:03 | XMS_ITS | Encounter Summary ---
Author [facility] [place] [address] Care Team Providers Care Phlebotomy Instructor Name Role Phone ParveenBrittany CAP CUTTER Primary Care Provider Reason for Visit * Reason Onset Date Comments Labs Only 08/25/2021 Labs (x7) faxed to [phone] Encounter Details Date Type Department Care Team (Late st Contact Info) Description 08/25/2021 Telephone [place] [address] DesBaylee starks RN Labs Only (Labs (x7) faxed to [phone]) Social History Tobacco Use Types Packs/Day Years [...] on filedocumented in this encounter Care Teams Phlebotomy Instructor Relationship Specialty Start Date End Date Brittany Saini APRN [address] [place] [address] PCP - General Family Medicine 09/05/20 documented as of this encounter
--- OUTSIDE RECORDS SUMMARY | 2024-04-03 16:03 | XMS_ITS | Encounter Summary ---
Author Organization [facility] Address [facility] [place] [address] Care Team Providers Care Product Support Consultant Name Role Phone Brittany Saini APRN Primary Care Provider [phone] Encounter Details Date Type Department Care Team (Late st Contact Info) Description 08/25/2021 [place] [phone] Anu Galicia MD [facility] [place] [address] Social History Tobacco Use Types Packs/Day Years [...] encounter Miscellaneous Notes * Telephone Encounter - nAu Galicia MD - 08/25/2021 12:23 PM EST I called the patient today and reviewed her CT chest findings with her. She has had slight worsening of the groundglass changes noted earlier. 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 She is currently on prednisone 10 mg daily which seems to help her breathing. She is working with the smoking cessation program and trying to quit smoking. In the meantime, I will increase her prednisone dosing 30 mg x 30 days followed by 20 mg x 14 days followed by 10 mg for 30 days. I started her on Mepron for PCP prophylaxis as her lisinopril interacts with Bactrim. I will also be sending some blood work to [facility] ([facility] labs). documented in this encounter Plan of Treatment Not on file documented as of this encounter Visit Diagnoses Diagnosis ILD (interstitial lung disease) Postinflammatory pulmonary fibrosis documented in this encounter Care Teams Product Support Consultant Relationship Specialty Start Date End Date Brittany Saini, PIT OPERATOR [address] [place] [address] PCP - General Family Medicine 09/05/20 documented as of this encounter
--- OUTSIDE RECORDS SUMMARY | 2024-04-03 16:03 | XMS_ITS | Encounter Summary ---
Author Organization [facility] [place] [address] Care Team Providers Care Account Specialist Name Role Phone ParveenBrittany GARY Primary Care Provider [phone] Encounter Details Date Type Department Care Team (Late st Contact Info) Description 04/23/2022 Tele[place] [phone] Kelsey Carmona Social History Tobacco Use Types Packs/Day Years [...] on filedocumented in this encounter Care Teams Account Specialist Relationship Specialty Start Date End Date Brittany Saini APRN [address] [place] [address] PCP - General Family Medicine 09/05/20 documented as of this encounter
--- OUTSIDE RECORDS SUMMARY | 2024-04-03 16:03 | XMS_ITS | Encounter Summary ---
Author Organization [facility] [place] [address] Care Team Providers Care Concrete Puddler Name Role Phone Parveen Brittany VEGA Primary Care Provider [phone] Encounter Details Date Type Department Care Team (Late st Contact Info) Description 08/23/2021 Telephone [place] [address] Marcelle Arnold Social History Tobacco Use Types [...] on filedocumented in this encounter Care Teams Concrete Puddler Relationship Specialty Start Date End Date Brittany Saini APRN [address] [place] [address] PCP - General Family Medicine 09/05/20 documented as of this encounter
--- OUTSIDE RECORDS SUMMARY | 2024-04-03 16:03 | XMS_ITS | Encounter Summary ---
Author Organization [facility] Address [address] [place] [address] Care Team Providers Care Per Diem Rn Name Role Phone Unavailable Primary Care Provider Unavailabl e Encounter Details Date Type Department Care Team (Late st Contact Info) Description 04/27/2003 Results Only [facility] - [facility] [address] [place] [address] Asher Almodovar, DO [address] [facility] [address] [place], [place] [id number] Social History Tobacco Use Types Packs/Day Years Used Date Smoking Tobacco: Never Assessed Sex and Gender Information Value Date Recorded Sex Assigned at Not on file Gender Identity Not on file Sexual Orientation Not on file documented as of this encounter Plan of Treatment Not on file documented as of this encounter Procedures Procedure Name Priority Date/Time Associated Diagnosis Comments SURGICAL PATHOLOGY Routine 04/27/2003 0:00 EST documented in this encounter Results * SURGICAL PATHOLOGY (04/27/2003 0:00 EST) Pathology Report: SURGICAL PATHOLOGY REPORT Reports generated via electronic interface contain original data; however they are lacking the format of the original report. Caution should be taken when reading/interpreti ng unformatted reports. Name: ? NANCY LAGUNAS ? Accession #: ? [id number] ? : ? 1965 (Age: 37) ??F ? Collect Date: ? 04/27/2003 ? Location: ? [facility] ? Receive Date: ? 04/27/2003 ? Provider: ASHER ALMODOVAR DO Copy to: MARY TAYLOR NURSES SUPERVISOR ? Final Pathologic Diagnosis: A. ?Colon, ascending, biopsy: 1. ?Fragments of colonic mucosa with no specific pathologic features. B. ?Colon, transverse, biopsy: 1. ?Colonic mucosa with no specific pathologic features. C. ?Colon, descending, biopsy: 1. ?Colonic mucosa with no specific pathologic features. D. ?Colon, sigmoid, biopsy: 1. ?Colonic mucosa with surface hyperplastic features. E. ?Rectum, biopsy: 1. ?No specific pathologic features. Document reviewed and electronically signed by: YOLANDA Velez Report ??Date: 04/29/2003 17:03 By the signature above, the attending physician certifies that he/she has personally conducted a gross and/or microscopic examination of the described specimens and rendered or confirmed the above diagnosis. Specimen(s) Received: A. ?Bx ascending colon B. ?Bx transverse colon C. ?Bx ascending colon D. ?Bx sigmoid colon E. ?Bx rectum colon Clinical History: ? Colonoscopy; chronic diarrhea Gross Description: ? Received in Hollande's fixative labelled Osmer and ascending colon biopsy is a piece of soft tissue which measures 0.4 x 0.2 x 0.2 cm. Also received separately are three small fragments that measure collectively 0.2 x 0.1 x 0.1 cm. Submitted intact as (A). Received in Hollande's fixative labelled Osmer and transverse colon biopsy is a piece of soft tissue that measures 0.3 x 0.2 x 0.2 cm. ??Submitted intact as (B). ?? Received in Hollande's fixative labelled Osmer and biopsy descending colon is a piece of soft tissue that measures 0.4 x 0.2 x 0.2 cm. ??Submitted intact as (C). Received in Hollande's fixative labelled Osmer and biopsy sigmoid colon is a piece of soft tissue which measures 0.5 x 0.3 x 0.2 cm. Submitted intact as (D). Received in Hollande's fixative labelled Osmer and biopsy rectum is a piece of soft tissue which measures 0.5 x 0.3 x 0.2 cm. ??Submitted intact as (E). ??(Vidya Echeverria)/[facility] End of Report SUJIT SUAREZ 04/27/2003 04/27/2003 15: 17 EST Asher Almodovar DO PATHOLOGY ORDER RODNEY SUJIT SUAREZ [address] [place] [address] documented in this encounter Visit Diagnoses Not on filedocumented in this encounter
--- OUTSIDE RECORDS SUMMARY | 2024-04-03 16:03 | XMS_ITS | Encounter Summary ---
Author Organization [facility] Address [address] [place] [address] Care Team Providers Care Farm Machinery Mechanic Name Role Phone Amelia Vasquez FLY RAISER LOCKSTITCH Primary Care Provider [phone] Encounter Details Date Type Department Care Team (Late st Contact Info) Description 02/07/2021 Lab Requisition [facility] - [address] [address] Outr Resulting Lab, Provider Social History Tobacco [...] Procedure Name Priority Date/Time Associated Diagnosis Comments IMMUNOGLOBULINS Routine 02/07/2021 10:00 EDT ANTI NUCLEAR AB (MARCE), IFA Routine 02/07/2021 10:00 EDT documented in this encounter Results * (ABNORMAL) IMMUNOGLOBULINS (02/07/2021 10:00 EDT) IgG 1,260 610-1,616 mg/dL 02/08/2021 9:[address] [facility] IgA 517(H) 85 - 499 mg/dL 02/08/2021 9:[address] [facility] IgM 96 35 - 242 mg/dL 02/08/2021 9:[address] [facility] Blood VENOUS BLOOD / Unknown 02/07/2021 10:00 EDT 02/07/2021 21:20 EDT Provider Outr Resulting Lab CHEMISTRY & BLOOD GAS ORDERABLES Performing Organization Address [facility] Co de Phone Number [facility] [address] [place] [address] * (ABNORMAL) ANTI NUCLEAR AB (MARCE), IFA (02/07/2021 10:00 EDT) MARCE Interpretation Positive(A) Negative 02/08/2021 15:[address] [facility] MARCE Titer and Pattern 1 1:80 Speckled 02/08/2021 15:[address] [facility] Blood VENOUS BLOOD / Unknown 02/07/2021 10:00 EDT 02/07/2021 21:[address] [facility] - 02/08/2021 15:03 EDT Results were obtained with the INOVA NOVA Lite HEp-2 MARCE Kit by indirect immunofluorescence. Provider Outr Resulting Lab IMMUNOLOGY A ND SEROLOGY ORDERABLES Performing Organization Address [facility] Co de Phone Number [facility] [address] [place] [address] documented in this encounter Visit Diagnoses Not on filedocumented in this encounter Care Teams Farm Machinery Mechanic Relationship Specialty Start Date End Date Amelia Vasquez NP [address] [place] [phone] PCP - General 04/27/15 documented as of this encounter
--- OUTSIDE RECORDS SUMMARY | 2024-04-03 16:03 | XMS_ITS | Encounter Summary ---
Author Organization [facility] [place] [address] Care Team Providers Care Laborer Demolition Name Role Phone ParveenBrittany GARY Primary Care Provider [phone] Encounter Details Date Type Department Care Team (Late st Contact Info) Description 08/07/2021 Tele[place] [phone] Rayne Thompson Social History Tobacco Use Types Packs/Day Years [...] on filedocumented in this encounter Care Teams Laborer Demolition Relationship Specialty Start Date End Date Brittany Saini APRN [address] [place] [address] PCP - General Family Medicine 09/05/20 documented as of this encounter
--- OUTSIDE RECORDS SUMMARY | 2024-04-03 16:03 | XMS_ITS | Encounter Summary ---
Author Organization [facility] [place] [address] Care Team Providers Care Order Schedule Clerk Name Role Phone Brittany Saini APRN Primary Care Provider [phone] Encounter Details Date Type Department Care Team (Late st Contact Info) Description 08/14/2021 Telephone [facility] [place] [address] Marcelle Arnold Social History Tobacco Use Types [...] * Telephone Encounter - Marcelle Arnold - 08/14/2021 3:32 PM EST Ms. Diego stated she is planning to make a quit attempt on Saturday, 08/21. She stated she is concerned about all of her health issues which are causing her significant stress. She reports that Dr. Galicia told her she had to quit smoking. The patches she has in her possession have , so I places an rx request with her pcp for 21 mg. Nicotine patches and 4 mg. Nicotine lozenges. We discussed other strategies to manage stress and discomfort like deep breathing and distraction. I reminded Ms. Diego to put her tobacco away someplace or get rid of it so it would not be a temptation for her. I also suggested she drink lots of water and do her best to be consistent with the nicotine replacement therapy by using it every day. I reminded her that we will not let her do it aloneand will support her for as long as necessary. I will follow up in one week. documented in this encounter Plan of Treatment Not on file documented as of this encounter Visit Diagnoses Not on filedocumented in this encounter Care Teams Order Schedule Clerk Relationship Specialty Start Date End Date Brittany Saini, CHANGE CONTROL SPECIALIST [address] [facility] [place] [address] PCP - General Family Medicine 09/05/20 documented as of this encounter
--- OUTSIDE RECORDS SUMMARY | 2024-04-03 16:03 | XMS_ITS | Clinical Summary ---
Author Organization [facility] Address [address] [place] [address] Care Team Providers Care Strip Machine Tender Name Role Phone Amelia Vasquez SUPERVISOR COLOR PASTE MIXING Primary Care Provider Social History Tobacco Use Types Packs/Day Years Used Date Smoking Tobacco: Never Assessed Sex and Gender Information Value Date Recorded Sex Assigned at Not on file Gender Identity Not on file Sexual Orientation Not on file Plan of Treatment Health Maintenance Due Date Last Done Comments Hepatitis C Screen 1965 Hepatitis B Vaccine (1 of 3 - 19+ 3-dose series) 12/04 COVID-19 Vaccine (2022- season) 2023 Care Teams Strip Machine Tender Relationship Specialty Start Date End Date Amelia Vasquez NP [address] [place] [phone] PCP - General 04/27/15
--- OUTSIDE RECORDS SUMMARY | 2024-04-03 16:03 | XMS_ITS | Encounter Summary ---
Author Organization [facility] [place] [address] Care Team Providers Care Order Expediter Name Role Phone Parveen Brittany PAN RECLAIM PROCESSOR Primary Care Provider [phone] Reason for Visit * Reason Comments Medication Refill Encounter Details Date Type Department Care Team (Late st Contact Info) Description 08/07/2021 Refill [place] [phone] Anu Galicia MD [facility] [place] [address] ILD (interstitial lung disease) Social History Tobacco Use Types Packs/Day Years [...] fibrosis documented in this encounter Care Teams Order Expediter Relationship Specialty Start Date End Date Brittany Saini APRN [address] [place] [address] PCP - General Family Medicine 09/05/20 documented as of this encounter
--- OUTSIDE RECORDS SUMMARY | 2024-04-03 16:03 | XMS_ITS | Encounter Summary ---
Author Organization [facility] [place] [address] Care Team Providers Care Wool Mixer Name Role Phone Parveen Brittany NEW BUSINESS CLERK Primary Care Provider [phone] Encounter Details Date Type Department Care Team (Late Contact Info) Description 08/11/2021 Telephone Pulmonology [place] [phone] Maile Marin Social History Tobacco Use Types Packs/Day Years [...] encounter Miscellaneous Notes * Telephone Encounter - Maile Marin - 08/11/2021 9:35 AM ESTSummary: [place] Pt FYI Xochilt from Providers office at [facility] called to give a heads up on mutual pt. Pt cxl'd today's appt (08/11/21) & unable to send progress notes. Has an upcoming appt at [facility] on 08/17 and can send those notes. Pt. Has been referred to Endo Provider: Dr. Parveen NP and be reached @ [phone]. Please ask for nurse documented in this encounter Plan of Treatment Not on file documented as of this encounter Visit Diagnoses Not on filedocumented in this encounter Care Teams Wool Mixer Relationship Specialty Start Date End Date Brittany Saini APRN [address] [place] [address] PCP - General Family Medicine 09/05/20 documented as of this encounter
--- OUTSIDE RECORDS SUMMARY | 2024-04-03 16:03 | XMS_ITS | Encounter Summary ---
Author Organization [facility] [place] [address] Care Team Providers Care Site Administrator Name Role Phone ParveenBrittany APRN Primary Care Provider [phone] Reason for Visit * Reason Onset Date Comments Medication Refill 08/15/2021 Encounter Details Date Type Department Care Team (Late st Contact Info) Description 08/15/2021 [place] [address] Anu Galicia MD [facility] [place] [address] ILD (interstitial lung disease) (Primary Dx) Social History Tobacco Use Types Packs/Day Years [...] encounter Visit Diagnoses Diagnosis ILD (interstitial lung disease)- Primary Postinflammatory pulmonary fibrosis documented in this encounter Care Teams Site Administrator Relationship Specialty Start Date End Date Brittany Saini APRN [address] [place] [address] PCP - General Family Medicine 09/05/20 documented as of this encounter
--- OUTSIDE RECORDS SUMMARY | 2024-04-03 16:03 | XMS_ITS | Encounter Summary ---
Author Organization [facility] [place] [address] Care Team Providers Care Candy Polisher Name Role Phone Brittany Saini APRN Primary Care Provider [phone] Reason for Visit * Reason Onset Date Comments Medication Refill 04/23/2022 Encounter Details Date Type Department Care Team (Late st Contact Info) Description 04/23/2022 Telephone [place] [phone] Anu Galicia MD [facility] [place] [address] Medication Refill Social History Tobacco Use Types Packs/Day Years [...] encounter Miscellaneous Notes * Telephone Encounter - Gibran Calderon - 04/23/2022 1:27 PM EDT Name of Medication and Dose: fluticasone propion-salmeteroL (Advair Diskus) 500- 50 mcg/dose Disk with Device - Inhale 1 puff into the lungs every 12 hours. (Dose and frequency as stated in medication list) [facility] [place] [facility] PHONE: [phone] Would patient like script sent directly to pharmacy? yes Would patient like paper script mailed to home address no Caller/ Patient aware of 1-2 business day to process. documented in this encounter Plan of Treatment Not on file documented as of this encounter Visit Diagnoses Not on filedocumented in this encounter Care Teams Candy Polisher Relationship Specialty Start Date End Date Brittany Saini, GARY [address] [facility] [address] PCP - General Family Medicine 09/05/20 documented as of this encounter
--- OUTSIDE RECORDS SUMMARY | 2024-04-03 16:03 | XMS_ITS | Encounter Summary ---
Author Organization [facility] [place] [address] Care Team Providers Care Institute Director Name Role Phone Brittany Saini APRN Primary Care Provider [phone] Encounter Details Date Type Department Care Team (Latest Contact Info) Description 08/20/2022 11:30 AM EST TH Visit (TeleHealth) [place] [id number] Anu Galicia MD [facility] [place] [address] Moderate persistent asthma without complication; ILD (interstitial lung disease); KOSTA (obstructive sleep apnea); Tobacco abuse; Adrenal myelolipoma; *History of COVID-19 Social History Tobacco Use Types Packs/Day Years Used Date Smoking Tobacco: Every Day Cigarettes Smokeless Tobacco: Never Alcohol Use Standard Drinks/Week Comments No 0 (1 standard drink = 0.6 oz pur e alcohol) Sex and Gender Information Value Date Recorded Sex Assigned at Not on file Gender Identity Not on file Sexual Orientation Not on file documented as of this encounter Progress Notes * Anu Galicia MD - 08/20/2022 11:30 AM EST Images from the original note were not included. [facility] Section of Pulmonary and Critical Care Medicine Outpatient Consultation Date of Encounter: 08/20/2022 Referring Provider: No referring provider defined for this encounter. Reason for Evaluation: Asthma + abnormal CT chest History of Present Illness: Patient verbally consents to this telephone visit and understands that this visit may be billed, similar to a clinic office visit. Nancy is a 56 year old female who presents today for a follow up Telephone visit (patient preference). Her last her last visit with me was in June 2021 At which time I had continued her Advair and started her on Spiriva Respimat. I had also continued her prednisone at 10 mg daily as that had been concerned about an ILD, possibly RB-ILD versus DIP. I had repeated a CT chest and had reviewed it with her. The CT chest in August 2021 had demonstrated worsening of the groundglass changes. With her ongoing smoking history, the concern was worsening of the underlying possible RB-ILD. After my phone call with her, I had given her a longer course of prednisone with 30 mg daily x30 days followed by 20mg daily x14 days followed by 10 mg daily x30 days. She had also been on Mepron during that time for PCP prophylaxis. She had 2 follow-up visits with me which she was a no-show for (September 2021 and November 2021). The patient states that she did well after her treatment with prednisone. Her symptoms were all better. She was able to breathe better and did not have as much shortness of breath. States that she definitely can tell the difference when she is on versus off prednisone. She feels that her symptoms seem to remain controlled with current inhalers Spiriva and Advair. Thinks that she is doing fine from a breathing standpoint. She still experiences some shortness of breath with exertion but as long as she paces herself and stops, she does fine. 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 She barely uses her albuterol. States that she uses it 3-4 times/month. She continues to smoke about half-3/4 pack/day. Does have some wheezing at times. No significant cough or phlegm production. She did have an episode of passing out at work in April - May 2023 at which time she was sent to the ER at [facility] where she tested positive for the flu. She does not remember having any chest x-ray done at that time. She recovered well from that. Also endorses having the significant weight loss since February 2022. She has spoken to her PCP about this and tells me that she will be scheduled for a CT chest for lung cancer screening. This has not been scheduled yet. She also had a mammogram recently which was negative as per patient report. States that her weight loss is currently being worked up by her PCP. No nasal congestion or postnasal drip. No acid reflux. No hospitalizations since her last visit with me. Past Medical and Surgical History: Diabetes mellitus Hypertension Rectal bleeding (internal and external hemorrhoids Dyspnea on exertion iron deficiency anemia Vitamin D deficiency ? Asthma History of seizures Depression Obesity Urge incontinence PTSD Mood disorder Migraines Obstructive sleep apnea Gastroesophageal reflux disease Fibromyalgia History of COVID 19 Past Surgical History: Procedure Laterality Date ??? SECTION x3 ??? CHOLECYSTECTOMY ??? DENTAL SURGERY wisdom teeth, one pulled ??? HYSTERECTOMY ??? OVARY REMOVAL after hysterectomy ??? PRO COLONOSCOPY, BIOPSY N/A 03/26/2016 COLONOSCOPY FLEXIBLE, WITH BX performed by Mohinder Cid MD at [facility] ??? PRO COLONOSCOPY, DIAGNOSTIC N/A 02/05/2017 COLONOSCOPY, DIAGNOSTIC performed by Floyd Lopez MD at [facility] Family History: Sister from fungal infection of her lungs ( mold ), also had emphysema ( alpha 1 AT deficiency ). Brother had lung issues. Mother had uterine cancer. Mother and siblings had asthma as well. No h/o IPF in the family. Social and Occupational History: Currently lives at home with her oldest daughter. 3 years ago. She is raising her 5 grand children. 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 Before that worked in [employer] for 10 years, worked in [employer]. Did not have any chemical exposures. Smoked 1/2 PPD x 38 years. Was a heavy smoker at one time, was doing 2 PPD when She started. Rare alcohol use. No illicit drug use. No vaping. No known mold exposure. No known asbestos exposure. Has 2 cats at home. Current Medications at Start of Encounter: Current Outpatient Medications Medication Sig Dispense Refill ??? tiotropium bromide (Spiriva Respimat) 1.25 mcg/actuation Mist Inhale 2 puffs into the lungs daily. 4 g 0 ??? Advair Diskus 500-50 mcg/dose Disk with Device INHALE 1 PUFF BY MOUTH EVERY 12 HOURS 60 each 1 ??? atovaquone (Mepron) 750 mg/5 mL Suspension Take 10 mLs by mouth daily. 210 mL 2 ??? predniSONE (Deltasone) 10 mg Tablet Take 1 tablet by mouth daily. 30 tablet 11 ??? cholecalciferol, Vitamin D3, 50 mcg (2,000 unit) Capsule Take 2,000 Units by mouth daily. ??? ferrous gluconate (Fergon) 324 mg (37.5 mg iron) Tablet Take 1 tablet by mouth daily. ??? metFORMIN (GLUCOPHAGE) 1,000 mg Tablet Take 1,000 mg by mouth 2 times daily. ??? nystatin (Mycostatin) 100,000 unit/mL Suspension Take 5 mLs by mouth 4 times daily. 300 mL 1 ??? gabapentin (NEURONTIN) 400 mg Capsule Take 3 capsules by mouth 3 times daily. 270 capsule 11 ??? PROAIR HFA 90 mcg/actuation HFA Aerosol Inhaler INHALE 2 PUFFS BY MOUTH INTO THE LUNGS EVERY 4 HOURS NEEDED WHEEZING. USE WITH SPACER 8.5 g 1 ??? atorvastatin (LIPITOR) 20 mg Tablet TAKE 1 TABLET BY MOUTH EVERY DAY 90 tablet 3 ??? DULoxetine (CYMBALTA) 60 mg Capsule, Delayed Release(E.C.) Take 1 capsule by mouth daily. 90 tablet 3 ??? cyclobenzaprine (FLEXERIL) 10 mg Tablet TAKE 1 TABLET BY MOUTH THREE TIMES DAILY NEEDED FOR MUSCLE SPASMS (Patient not taking: Reported on 12/16/2020) 90 tablet 3 ??? lisinopril (PRINIVIL;ZESTRIL) 40 mg Tablet Take 1 tablet by mouth daily. 90 tablet 3 ??? aspirin 81 mg Tablet, Delayed Release (E.C.) Take 1 tablet by mouth daily. 30 tablet 3 ??? lancets (FREESTYLE LANCETS) 28 gauge Misc 1 each by Other route 3 times daily. Indications: Diabetes Mellitus 300 each 3 ??? blood sugar diagnostic strips (FREESTYLE LITE STRIPS) Strip 1 each by Other route 3 times daily. Use as instructed Indications: Diabetes Mellitus 300 each 3 ??? blood-glucose meter (FREESTYLE LITE METER) Kit 1 blood glucose meter. Indications: Diabetes Mellitus 1 each 0 ??? acetaminophen (TYLENOL) 500 mg tablet Take 1,000 mg by mouth every 6 hours as needed. No current facility-administered medications for this visit. Adverse Drug Reactions: Allergies Allergen Reactions ??? Latex Skin cracks and bleeds ??? Penicillins Rash Review of Systems: CONSTITUTIONAL: Weight loss present. Fatigue present. HEENT: No nasal congestion or post nasal drip. PULM: No hemoptysis or pleuritic chest pain. CVS: No chest pains or palpitations. No orthopnea or leg swelling. GI: No abdominal pain, nausea or vomiting. MUSCULOSKELETAL: No arthralgias. SKIN: No new rash. NEURO: No headaches Physical Examination: There were no vitals taken for this visit. No physical exam was done as this was a telephone visit. Labs: I personally reviewed relevant laboratory results which were significant for: Metabolic Parameters Lab Results Component Value Date NA 139 10/31/2018 K 4.2 10/31/2018 CL 102 10/31/2018 CO2 25 10/31/2018 ANIONGAP 12 10/31/2018 BUN 9 10/31/2018 CREATININE 0.83 10/31/2018 GLUCOSE 127 10/31/2018 CALCIUM 8.9 10/31/2018 Echocardiogram: None available for review. Pulmonary Function Tests: 12/16/2020: Normal FVC 2.64 L (82%), normal FEV1 2.09 L (81%). Normal FEV1/FVC ratio 79. No obstructive ventilatory defect present. Moderate abnormalities in gas exchange present. The patient walked 375 feet on room air without any significant oxygen desaturation. 05/08/2020: No evidence of obstructive airway disease. No bronchodilator responsiveness. No evidence of restriction. Isolated severe diffusion defect. Methacholine challenge test: Strongly positive methacholine challenge test. Impression and Plan of Care: Ms. Diego is a 56 year old female who presents today for a follow up of her dyspnea: ASSESSMENT/PLAN 1. Dyspnea on exertion Abnormal CT chest/ILD Recent history of COVID-19 infection ?? Nancy has had CT chests in the past which had demonstrated groundglass opacities concerning for possible respiratory bronchiolitis ILD versus DIP. She is status post prednisone therapy in the past,however, was a no show for her follow ups post treatment. Her last CT chest was done in 08/15 and I think she will need another CT chest to evaluate stability of the disease process. Unfortunately, she has continued to smoke through all of this and I recommended again that she quit smoking. It is difficult to assess if the glucocorticoids will be helpful in any way if she continues to have an ongoing insult (smoking in this case). The patient states that she will be getting her getting a CT chest (ordered by her PCP) at a local hospital. I have recommended that she give me a call when the CT chest is done so I can get the images for review. If her PCP does not order the CT chest, she would definitely need a CT chest from her ILD standpoint. She will call me if for some reason she does not get a CT chest with her PCP at which time I will order it. 2. History of asthma ?? I have recommended continuing Advair 500/50 as well as Spiriva Respimat as the patient feels those inhalers help. 3. Tobacco abuse ?? Patient has been strongly encouraged to quit. I recommended getting in touch with the smoking cessation program at [facility] again, however, the patient wishes to hold off on it till she gets her CT chest. 4. Obstructive sleep apnea ?? Patient did not call to schedule her sleep study. I strongly recommended that she do so today but the patient feels that she does not have the time at this time to get further testing done. 6. Right adrenal myolipoma ?? To be followed by PCP RECOMMENDATIONS 1. Continue Advair to 500/50, 1 puff twice daily 2. Continue Spiriva respimat 1.25 mcg, 2 puffs daily 3. Patient to get CT chest awaiting chest (ordered by PCP as per patient) 4. Patient to call me once CT chest is done so I can get the images for review 5. Smoking cessation recommended 6. RTC in 3 months I provided care to the patient today via telephone call. The total time associated with this visit was 30 minutes. I reviewed my impression and recommendations with the patient and answered all the questions to hersatisfaction. She understands the plan, and knows that she can contact us at any time should any new symptoms, concerns or questions arise. Anu Galicia MD [facility]illing [facility] Pulmonary and Critical [place] [address] documented in this encounter Plan of Treatment Not on file documented as of this encounter Visit Diagnoses Diagnosis Moderate persistent asthma without complication Unspecified asthma ILD (interstitial lung disease) Postinflammatory pulmonary fibrosis KOSTA (obstructive sleep apnea) Obstructive sleep apnea (adult) (pediatric) Tobacco abuse Tobacco use disorder Adrenal myelolipoma History of COVID-19 documented in this encounter Care Teams Institute Director Relationship Specialty Start Date End Date Brittany Saini, GARY [address] [place] [address] PCP - General Family Medicine 09/05/20 documented as of this encounter
--- OUTSIDE RECORDS SUMMARY | 2024-04-03 16:03 | XMS_ITS | Encounter Summary ---
Author Organization [facility] [place] [address] Care Team Providers Care Labor And Delivery Registered Nurse Name Role Phone LelandBrittany mendoza GARY Primary Care Provider [phone] Encounter Details Date Type Department Care Team (Late st Contact Info) Description 04/24/2022 Telephone Pulmonology at [facility] [place] [id number] Rayne Thompson Social History Tobacco Use Types [...] encounter Miscellaneous Notes * Telephone Encounter - Rayne Thompson - 04/24/2022 12:58 PM EDT Copied from CRM #[id number]. Topic: Specialty Dept CRMs - Appointment Needed >> Apr 23, 2022 1:24 PM Gibran Calderon wrote: Appt Needed Specialist Anu Galicia Relationship (if other than patient-full name): Nancy Diego, Pt Appt. Type Needed: Other Reason for Visit: Nancy Diego, Pt, stated she needs to reschedule her telephone office visit to a Saturday, anytime will work. Pt stated she can be reached at [phone] to discuss. documented in this encounter Plan of Treatment Not on file documented as of this encounter Visit Diagnoses Not on filedocumented in this encounter Care Teams Labor And Delivery Registered Nurse Relationship Specialty Start Date End Date Brittany Saini APRN [address] [place] [address] PCP - General Family Medicine 09/05/20 documented as of this encounter
--- OUTSIDE RECORDS SUMMARY | 2024-04-03 16:03 | XMS_ITS | Encounter Summary ---
Author Organization [facility] Address [address] [place] [address] Care Team Providers Care Manager Mining Name Role Phone Unavailable Primary Care Provider Unavailabl e Encounter Details Date Type Department Care Team (Late st Contact Info) Description 05/04/2004 Results Only [facility] conversion [address] [place] [address] Laureen Reis MD [address] [place] [place] [address] [place] [address] Social History Tobacco Use Types Packs/Day Years Used Date Smoking Tobacco: Never Assessed Sex and Gender Information Value Date Recorded Sex Assigned at Not on file Gender Identity Not on file Sexual Orientation Not on file documented as of this encounter Plan of Treatment Not on file documented as of this encounter Procedures Procedure Name Priority Date/Time Associated Diagnosis Comments SURGICAL PATHOLOGY Routine 05/04/2004 0:00 EST documented in this encounter Results * SURGICAL PATHOLOGY (05/04/2004 0:00 EST) Pathology Report: SURGICAL PATHOLOGY REPORT Reports generated via electronic interface contain original data; however they are lacking the format of the original report. Caution should be taken when reading/interpreti ng unformatted reports. Name: ? NANCY LAGUNAS ? Accession #: ? [id number] ? : ? 1965 (Age: 38) ??F ? Collect Date: ? 05/04/2004 ? Location: ? [facility] ? Receive Date: ? 05/05/2004 ? Provider: LAUREEN REIS MD Copy to: MARY TAYLOR HSPT TUTOR ? Final Pathologic Diagnosis: A. ?Ovary, right, oophorectomy: 1. ?Benign epithelial lined cysts. 2. ?Fallopian tube with no pathologic features. 3. ?No evidence of malignancy. B. ?Ovary, left, oophorectomy: 1. ?Benign follicular cyst. 2. ?Benign epithelial lined cyst. 3. ?No evidence of malignancy. Document reviewed and electronically signed by: SPARKLE DOOLEY MD Report ??Date: 05/10/2004 14:40 By the signature above, the attending physician certifies that he/she has personally conducted a gross and/or microscopic examination of the described specimens and rendered or confirmed the above diagnosis. Specimen(s) Received: A. ?Right ovary (#1) B. ?Left ovary (#2) Clinical History: ? Persistent ovarian cysts Gross Description: ? Received in formalin labelled Osmer and right ovary is a 3.5 x 2.8 x 2.0 cm, 23.4 gram, biloculated, cystic ovary which contains approximately 3.0 cc' s of yellow, tinted, serous fluid. ??The cyst linings are barajas-white and smooth, one of which displays a 0.4 x 0.3 x 0.3 cm barajas-pink, granular excrescence, attached to which is a pedicle and a 0.2 x 0.2 x 0.1 cm barajas, granular, polypoid tissue. ??Sectioning within the wall reveals barajas-white, fibrous cut surfaces and a single, 0.4 x 0.3 x 0.3 cm, well-circumscribed , cystic structure containing white-barajas excrescences. ??Adjacent to this cystic structure is an ill-defined, 0.4 cm in greatest dimension fibrous focus. Minimal residual ovarian stroma is identified. ??Approximately 75% of the specimen is submitted as (A1) ??(A4) to include excrescences and thickened wall. Received in formalin labelled Osmer and left ovary is a 19.8 gram, 5.0 x 4.0 x 2.5 cm ovary encompassed by a previously-incised barajas-pink, cystic structure. This cystic structure has a 0.4 cm in greatest thickness fibromembranous wall. ??Sectioning within the ovary, there is a main, disrupted, central, 1.5 x 1.5 x 1.0 cm, glistening, smooth-lined cavity. ??Within this cavity there is an additional 0.3 cm in greatest dimension disrupted cystic structure. ??At the periphery of this cavity there are corpora albicans and a corpus luteum. ??No discrete lesions are identified. ??Repair Armature Winder sections to include the cavity, disrupted cyst, and ovarian stroma are submitted as (B1) (B4). ??(Jung Patel)/[facility] End of Report SUJIT SUAREZ 05/04/2004 05/05/2004 15: 09 EST Laureen Reis MD PATHOLOGY ORDERABLES SUJIT SUAREZ [address] [place] [address] documented in this encounter Visit Diagnoses Not on filedocumented in this encounter
--- OUTSIDE RECORDS SUMMARY | 2024-04-03 16:03 | XMS_ITS | Encounter Summary ---
Author Organization [facility] Address [facility] [place] [address] Care Team Providers Care Improvement Nurse Name Role Phone Brittany Saini APRN Primary Care Provider [phone] Reason for Referral * Diagnostic Test (Routine) - Closed Specialty Diagnoses / Procedures Referred By Contac t Referred To Contact Radiology Diagnoses ILD (interstitial lung disease) Procedures CT Chest wo Contrast (Generic) Anu Galicia MD [facility] [place] [address] [facility] [place] [address] Referral ID Status Reason Start Date Expiration Date V isits Requested Visits Authorized [id number] Closed Specialty Service Requested 07/20/2021 01/17/2023 1 1 Reason for Visit * Diagnostic Test (Routine) - Closed Specialty Diagnoses / Procedures Referred By Contac t Referred To Contact Radiology Diagnoses ILD (interstitial lung disease) Procedures CT Chest wo Contrast (Generic) Anu Galicia MD [facility] [place] [address] [facility] [place] [address] Referral ID Status Reason Start Date Expiration Date V isits Requested Visits Authorized [id number] Closed Specialty Service Requested 07/20/2021 01/17/2023 1 1 Encounter Details Date Type Department Care Team (Latest Contact Info) Description 08/16/2021 10:55 AM EST - 08/16/2021 11:59 PM EST Hospital [place] [address] Anu Galicia MD [facility] Pulmonary Medicine [place] [id number] ILD (interstitial lung disease) Discharge Disposition: Home Social History Tobacco Use Types Packs/Day Years Used Date Smoking Tobacco: Every Day Cigarettes Smokeless Tobacco: Never Alcohol Use Standard Drinks/Week Comments No 0 (1 standard drink = 0.6 oz pur e alcohol) Sex and Gender Information Value Date Recorded Sex Assigned at Not on file Gender Identity Not on file Sexual Orientation Not on file documented as of this encounter Medications at Time of Discharge Medication Sig Dispensed Refills Start Date End Date predniSONE (Deltasone) 10 mg TabletIndications:ILD (interstitial lung disease) Take 1 tablet by mouth daily. 30 tablet 11 08/15/2021 cholecalciferol, Vitamin D3, 50 mcg (2,000 unit) Capsule Take 2,000 Units by mouth daily. 09/22/2020 ferrous gluconate (Fergon) 324 mg (37.5 mg iron) Tablet Take 1 tablet by mouth daily. 11/03/2020 metFORMIN (GLUCOPHAGE) 1,000 mg Tablet Take 1,000 mg by mouth 2 times daily. 11/03/2020 nystatin (Mycostatin) 100,000 unit/mL SuspensionIndications: Oral thrush Take 5 mLs by mouth 4 times daily. 300 mL 1 12/16/2020 gabapentin (NEURONTIN) 400 mg CapsuleIndications:Fib romyalgia Take 3 capsules by mouth 3 times daily. 270 capsule 11 04/20/2019 PROAIR HFA 90 mcg/actuation HFA Aerosol Inhaler INHALE 2 PUFFS BY MOUTH INTO THE LUNGS EVERY 4 HOURS NEEDED WHEEZING. USE WITH SPACER 8.5 g 1 12/16/2018 atorvastatin (LIPITOR) 20 mg Tablet TAKE 1 TABLET BY MOUTH EVERY DAY 90 tablet 3 09/29/2018 DULoxetine (CYMBALTA) 60 mg Capsule, Delayed Release(E.C.)Indicatio ns:Depressive disorder Take 1 capsule by mouth daily. 90 tablet 3 08/22/2018 cyclobenzaprine (FLEXERIL) 10 mg Tablet TAKE 1 TABLET BY MOUTH THREE TIMES DAILY NEEDED FOR MUSCLE SPASMS 90 tablet 3 05/26/2018 lisinopril (PRINIVIL;ZESTRIL) 40 mg Tablet Take 1 tablet by mouth daily. 90 tablet 3 04/14/2018 aspirin 81 mg Tablet, Delayed Release (E.C.) Take 1 tablet by mouth daily. 30 tablet 3 05/28/2017 lancets (FREESTYLE LANCETS) 28 gauge MiscIndications:diabet es mellitus 1 each by Other route 3 times daily. Indications: Diabetes Mellitus 300 each 3 12/10/2016 blood sugar diagnostic strips (FREESTYLE LITE STRIPS) StripIndications:diabe angelita mellitus 1 each by Other route 3 times daily. Use as instructed Indications: Diabetes Mellitus 300 each 3 12/10/2016 blood-glucose meter (FREESTYLE LITE METER) KitIndications:diabete s mellitus 1 blood glucose meter. Indications: Diabetes Mellitus 1 each 12/10/2016 acetaminophen (TYLENOL) 500 mg tablet Take 1,000 mg by mouth every 6 hours as needed. tiotropium bromide (Spiriva Respimat) 1.25 mcg/actuation MistIndications:Modera te persistent asthma without complication Inhale 2.5 mcg into the lungs daily. 4 g 11 07/20/2021 07/30/2022 fluticasone propion-salmeteroL (Advair Diskus) 500-50 mcg/dose Disk with DeviceIndications:Mode rate persistent asthma without complication Inhale 1 puff into the lungs every 12 hours. 1 each 12 02/02/2021 04/23/2022 atovaquone (Mepron) 750 mg/5 mL SuspensionIndications: ILD (interstitial lung disease) Take 10 mLs by mouth daily. 210 mL 2 02/02/2021 08/25/2021 documented as of this encounter Plan of Treatment Not on file documented as of this encounter Procedures Procedure Name Priority Date/Time Associated Diagnosis Comments CT CHEST WO CONTRAST (GENERIC) Routine 08/16/2021 11:14 AM EST ILD (interstitial lung disease) documented in this encounter Results * CT Chest wo Contrast (Generic) (08/16/2021 11:14 AM EST) Anatomical Region Laterality Modality Chest Computed Tomogra phy 08/16/2021 11:2 9 AM EST Impressions 08/16/2021 2:24 PM EST Mildly progressed diffuse groundglass opacity throughout both lungs with regions of air trapping and interlobular septal thickening. Findings are concerning for worsening respiratory bronchiolitis interstitial lung disease and evolving desquamative interstitial pneumonia (DIP) (per medical record the patient is a current every day smoker). I have personally reviewed the image(s) and the resident's interpretation and agree with the findings, Fatimah Henson MD at 08/16/2021 2:24 PM Thank you for letting us participate in the care of this patient. ??If you are a health care provider and have any questions regarding this report, please contact the number below. ??For patients who have questions please contact the health director of primary care that requested your imaging first. ? Narrative 08/16/2021 2:24 PM EST EXAMINATION: CT CHEST WO CONTRAST (GENERIC) CLINICAL HISTORY: Interstitial lung disease currently on prednisone, need to see if there is any improvement,. TECHNIQUE: 3.75 mm thick axial contiguous sections were obtained through the chest via helical acquisition without intravenous contrast administration. Thin-section reconstructions as well as coronal and sagittal reformatted images were generated. CT images also obtained in expiration and in prone position. COMPARISON: 01/09/2021 FINDINGS: Pulmonary parenchyma: On a background of apical predominant centrilobular emphysema there is persistent diffuse bilateral groundglass opacity which is increased in conspicuity compared to prior. There is mosaic attenuation and regions of air trapping in the bilateral lung bases. Also most prominent in the lung bases is subtle interlobular septal thickening. No honeycombing, subpleural reticulation or other significant cystic/cavitary change. Airways: No endotracheal or endobronchial opacities. Pleura: No pleural effusion or pneumothorax. Lymph nodes: Unchanged prominent but nonpathologically enlarged mediastinal nodes, likely reactive. Heart, pericardium, and great vessels: Normal cardiac size. No pericardial effusion. Moderate coronary artery atherosclerotic calcification. Nondilated thoracic aorta with mild atherosclerotic calcification. Other mediastinal structures: No significant findings. Lower neck: No significant findings. 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 Body wall soft tissues: No significant findings. Skeletal structures: No suspicious osseous lesions. Procedure Note Fatimah Pereyra MD - 08/16/2021 EXAMINATION: CT CHEST WO CONTRAST (GENERIC) CLINICAL HISTORY: Interstitial lung disease currently on prednisone, need to see if there is any improvement,. TECHNIQUE: 3.75 mm thick axial contiguous sections were obtained throughthe chest via helical acquisition without intravenous contrastadministration. Thin-section reconstructions as well as coronal and sagittal reformattedimages were generated. CT images also obtained in expiration and in prone position. COMPARISON: 01/09/2021 FINDINGS: Pulmonary parenchyma: On a background of apical predominantcentrilobular emphysema there is persistent diffuse bilateral groundglass opacity whichis increased in conspicuity compared to prior. There is mosaic attenuationand regions of air trapping in the bilateral lung bases. Also most prominentin the lung bases is subtle interlobular septal thickening. No honeycombing,subpleural reticulation or other significant cystic/cavitary change. Airways: No endotracheal or endobronchial opacities. Pleura: No pleural effusion or pneumothorax. Lymph nodes: Unchanged prominent but nonpathologically enlargedmediastinal nodes, likely reactive. Heart, pericardium, and great vessels: Normal cardiac size. Nopericardial effusion. Moderate coronary artery atherosclerotic calcification.Nondilated thoracic aorta with mild atherosclerotic calcification. Other mediastinal structures: No significant findings. Lower neck: No significant findings. 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 Body wall soft tissues: No significant findings. Skeletal structures: No suspicious osseous lesions. IMPRESSION Mildly progressed diffuse groundglass opacity throughout both lungs withregions of air trapping and interlobular septal thickening. Findings areconcerning for worsening respiratory bronchiolitis interstitial lung disease andevolving desquamative interstitial pneumonia (DIP) (per medical record the patientis a current every day smoker). I have personally reviewed the image(s) and the resident's interpretationand agree with the findings, Fatimah Henson MD at 08/16/2021 2:24PM Thank you for letting us participate in the care of this patient. If youare a health care provider and have any questions regarding this report,please contact the number below. For patients who have questions please contactthe health director of primary care that requested your imaging first. Electronically signed by: Fatimah Henson MD, [facility] ([phone]), at 08/16/2021 2:24 PM Anu Galicia MD IMG CT ORDERABLES documented in this encounter Visit Diagnoses Diagnosis ILD (interstitial lung disease) Postinflammatory pulmonary fibrosis documented in this encounter Care Teams Improvement Nurse Relationship Specialty Start Date End Date Brittany Saini, HEALTH SAFETY INSTRUCTOR [address] [place] [address] PCP - General Family Medicine 09/05/20 documented as of this encounter
--- OUTSIDE RECORDS SUMMARY | 2024-04-03 16:03 | XMS_ITS | Encounter Summary ---
Author Organization [facility] [place] [address] Care Team Providers Care Marinator Name Role Phone LelandBrittany mendoza GARY Primary Care Provider [phone] Reason for Visit * Reason Onset Date Comments Other 07/21/2021 CT report & last OV note faxed to [phone] Other 07/21/2021 Confirmed w/Pt P CP & apmnt Encounter Details Date Type Department Care Team (Late st Contact Info) Description 07/21/2021 Telephone Pulmonology at [facility] [place] [address] Baylee Slaughter RN Other (CT report & last OV note faxed to [phone]); Other (Confirmed w/Pt PCP & apmnt) Social History Tobacco Use Types Packs/Day Years [...] Telephone Encounter - Baylee Slaughter RN - 07/21/2021 11:35 AM EST I have called Pt to clarify who her current PCP is, per Dr. Galicia request to send over CT results and request PCP f/u. Pt tells me her current PCP is Brittany Saini and she has scheduled an appointmentwith PCP. Per Dr. Galicia: Pt had an adrenal myolipoma which had slightly increased and needs follow up Baylee Slaughter RN Department of Pulmonary 5C, [facility] / Pager: [phone] documented in this encounter Plan of Treatment Not on file documented as of this encounter Visit Diagnoses Not on filedocumented in this encounter Care Teams Marinator Relationship Specialty Start Date End Date Brittany Saini, GEAR MILLING MACHINE SET UP OPERATOR [address] [place] [facility] [place] [address] PCP - General Family Medicine 09/05/20 documented as of this encounter
--- OUTSIDE RECORDS SUMMARY | 2024-04-03 16:03 | XMS_ITS | Encounter Summary ---
Author Organization [facility] [place] [address] Care Team Providers Care Maritime Pilot Name Role Phone Parveen Brittany SOFTWARE TECHNICIAN Primary Care Provider [phone] Reason for Visit * Reason Comments Medication Refill Spiriva Rx Encounter Details Date Type Department Care Team (Late st Contact Info) Description 08/13/2022 Ref[place] [address] Anu Galicia MD [facility] [place] [address] Moderate persistent asthma without complication Social History Tobacco Use Types Packs/Day Years [...] Moderate persistent asthma without complication Unspecified asthma documented in this encounter Care Teams Maritime Pilot Relationship Specialty Start Date End Date Brittany Saini APRN [address] [place] [address] PCP - General Family Medicine 09/05/20 documented as of this encounter
--- OUTSIDE RECORDS SUMMARY | 2024-04-03 16:03 | XMS_ITS | Encounter Summary ---
Author Organization [facility] [place] [address] Care Team Providers Care Ticket Clerk Name Role Phone Brittany Saini GARY Primary Care Provider [phone] Reason for Visit * Reason Onset Date Comments Other 08/25/2021 Prednisone quest ion Encounter Details Date Type Department Care Team (Late st Contact Info) Description 08/25/2021 Telephone Pulmonology at [facility] [place] [address] Baylee Slaughter RN Other (Prednisone question ) Social History Tobacco Use Types Packs/Day Years [...] Telephone Encounter - Baylee Slaughter RN - 08/25/2021 12:10 PM EST I have received a VM from Pt in regards to prednisone. Pt asks if she is to remain on the prednisone and expresses concern remaining on it long term care pharmacist. I will reach out to Dr. Galicia for plan of care and f/u with Pt. Baylee Slaughter RN Department of Pulmonary 5C, [facility] / Pager: [phone] documented in this encounter Plan of Treatment Not on file documented as of this encounter Visit Diagnoses Not on filedocumented in this encounter Care Teams Ticket Clerk Relationship Specialty Start Date End Date Brittany Saini, CLIENT SERVICES ACCOUNT MANAGER [address] [place] [address] PCP - General Family Medicine 09/05/20 documented as of this encounter
--- OUTSIDE RECORDS SUMMARY | 2024-04-03 16:03 | XMS_ITS | Encounter Summary ---
Author Organization [facility] [place] [address] Care Team Providers Care Superintendent Menagerie Name Role Phone ParveenBrittany GARY Primary Care Provider [phone] Encounter Details Date Type Department Care Team (Late st Contact Info) Description 01/02/2022 [place] [phone] Rayne Thompson Social History Tobacco Use Types [...] on filedocumented in this encounter Care Teams Superintendent Menagerie Relationship Specialty Start Date End Date Brittany Saini APRN [address] [place] [address] PCP - General Family Medicine 09/05/20 documented as of this encounter
--- OUTSIDE RECORDS SUMMARY | 2024-04-03 16:03 | XMS_ITS | Encounter Summary ---
[facility] [address] Care Team Providers Care Cavalry Officer Name Role Phone ParveenBrittany GARY Primary Care Provider [phone] Encounter Details Date Type Department Care Team (Late st Contact Info) Description 11/30/2021 [place] [phone] Rayne Thompson Social History Tobacco Use Types [...] on filedocumented in this encounter Care Teams Cavalry Officer Relationship Specialty Start Date End Date Brittany Saini APRN [address] [place] [address] PCP - General Family Medicine 09/05/20 documented as of this encounter
--- OUTSIDE RECORDS SUMMARY | 2024-04-03 16:03 | XMS_ITS | Encounter Summary ---
Author Organization [facility] [place] [address] Care Team Providers Care Milling Machine Operator Name Role Phone Parveen Brittany VEGA Primary Care Provider [phone] Reason for Visit * Reason Comments Medication Refill Encounter Details Date Type Department Care Team (Late st Contact Info) Description 04/23/2022 [place] [phone] Anu Galicia MD [facility] [place] [address] Moderate persistent asthma without complication Social History [...] asthma documented in this encounter Care Teams Milling Machine Operator Relationship Specialty Start Date End Date Brittany Saini APRN [address] [place] [address] PCP - General Family Medicine 09/05/20 documented as of this encounter
--- OUTSIDE RECORDS SUMMARY | 2024-04-03 16:03 | XMS_ITS | Encounter Summary ---
Author Organization [facility] [place] [address] Care Team Providers Care Game Artist Name Role Phone Brittany Saini APRN Primary Care Provider [phone] Encounter Details Date Type Department Care Team (Late st Contact Info) Description 08/10/2021 Telephone Tobacco Treatment at [facility] [place] [address] Marcelle Arnold Social History Tobacco Use Types [...] * Telephone Encounter - Marcelle Arnold - 08/10/2021 3:32 PM EST Patient is interested in meeting again on the phone Smoking 1/2 ppd. Patient states she is under less stress and in a place to quit. We will talk Saturday, 08/14. documented in this encounter Plan of Treatment Not on file documented as of this encounter Visit Diagnoses Not on filedocumented in this encounter Care Teams Game Artist Relationship Specialty Start Date End Date Brittany Saini APRN [address] [place] [address] PCP - General Family Medicine 09/05/20 documented as of this encounter
--- OUTSIDE RECORDS SUMMARY | 2024-04-03 16:03 | XMS_ITS | Encounter Summary ---
Author Organization [facility] Address [address] [place] [address] Care Team Providers Care Financial Reporting Analyst Name Role Phone Unavailable Primary Care Provider Unavailabl e Encounter Details Date Type Department Care Team (Late st Contact Info) Description 03/05/2003 Results Only [facility] [address] [place] [address] Amelia Vasquez, KIDNEY PULLER [address] [facility],[address] [address] Social History Tobacco Use Types Packs/Day Years Used Date Smoking Tobacco: Never Assessed Sex and Gender Information Value Date Recorded Sex Assigned at Not on file Gender Identity Not on file Sexual Orientation Not on file documented as of this encounter Plan of Treatment Not on file documented as of this encounter Procedures Procedure Name Priority Date/Time Associated Diagnosis Comments CYTOPATHOLOGY Routine 03/05/2003 0:00 EDT documented in this encounter Results * CYTOPATHOLOGY (03/05/2003 0:00 EDT) Pathology Report: CYTOPATHOLOGY REPORT Reports generated via electronic interface contain original data; however they are lacking the format of the original report. Caution should be taken when reading/interpreti ng unformatted reports. Name: ? NANCY LAGUNAS ? Accession #: ? [id number] : ? 1965 (Age: 37) ??F ?Collect Date: ? 03/05/2003 Location: ? [facility] ? Receive Date: ? 03/09/2003 Provider: ?AMELIA VASQUEZ KIDNEY PULLER Copy to: ? Specimen/Source: ?ThinPrep Pap Test, Vagina Last Menstrual Period: ? 1999 Treatment History: ? Hysterectomy: 2000 endometriosis Other: ? HPVA - HPV testing requested if ASC-US on the current ThinPrep Pap test. ? SPECIMEN ADEQUACY ? Satisfactory for Evaluation - assessment of transformation zone component not applicable ( e.g. atrophy, vaginal sample, hysterectomy) GENERAL CATEGORIZATION ? Negative for Intraepithelial Lesion or Malignancy INTERPRETATION ? Shift in will present suggestive of bacterial vaginosis. ? Document reviewed and electronically signed by: ? DOMITILA Case(ASCP) ? Report Date: ??03/11/2003 08:52 End of Report SUJIT SUAREZ 03/05/2003 03/09/2003 Amelia Vasquez NP PATHOLOGY ORDERABLES Performing Organization Address City/State/[facility] Co de Phone Number SUJIT SUAREZ [address] [place] [address] documented in this encounter Visit Diagnoses Not on filedocumented in this encounter
--- OUTSIDE RECORDS SUMMARY | 2024-04-03 16:03 | XMS_ITS | Clinical Summary ---
Author Organization [facility] Address [facility] [place] [address] Care Team Providers Care Counter Tacker Name Role Phone Brittany Saini APRN Primary Care Provider [phone] Allergies Active Allergy Reactions Criticality Noted Date Comments Latex Low 04/14/2013 Skin cracks and bleeds Penicillins Rash Medium 03/01/2013 Medications Medication Sig Dispensed Refills Start Date End Date Status acetaminophen (TYLENOL) 500 mg tablet Take 1,000 mg by mouth every 6 hours as needed. Active lancets (FREESTYLE LANCETS) 28 gauge MiscIndications:maricarmen betes mellitus 1 each by Other route 3 times daily. Indications: Diabetes Mellitus 300 each 3 12/10/2016 Active blood sugar diagnostic strips (FREESTYLE LITE STRIPS) StripIndications:di abetes mellitus 1 each by Other route 3 times daily. Use as instructed Indications: Diabetes Mellitus 300 each 3 12/10/2016 Active blood-glucose meter (FREESTYLE LITE METER) KitIndications:diab etes mellitus 1 blood glucose meter. Indications: Diabetes Mellitus 1 each 12/10/2016 Active aspirin 81 mg Tablet, Delayed Release (E.C.) Take 1 tablet by mouth daily. 30 tablet 3 05/28/2017 Active lisinopril (PRINIVIL;ZESTRIL) 40 mg Tablet Take 1 tablet by mouth daily. 90 tablet 3 04/14/2018 Active cyclobenzaprine (FLEXERIL) 10 mg Tablet TAKE 1 TABLET BY MOUTH THREE TIMES DAILY NEEDED FOR MUSCLE SPASMS 90 tablet 3 05/26/2018 Active Additional Information Patient not taking.Reported on 08/20/2022 DULoxetine (CYMBALTA) 60 mg Capsule, Delayed Release(E.C.)Indica tions:Depressive disorder Take 1 capsule by mouth daily. 90 tablet 3 08/22/2018 Active atorvastatin (LIPITOR) 20 mg Tablet TAKE 1 TABLET BY MOUTH EVERY DAY 90 tablet 3 09/29/2018 Active PROAIR HFA 90 mcg/actuation HFA Aerosol Inhaler INHALE 2 PUFFS BY MOUTH INTO THE LUNGS EVERY 4 HOURS NEEDED WHEEZING. USE WITH SPACER 8.5 g 1 12/16/2018 Active gabapentin (NEURONTIN) 400 mg CapsuleIndications: Fibromyalgia Take 3 capsules by mouth 3 times daily. 270 capsule 11 04/20/2019 Active cholecalciferol, Vitamin D3, 50 mcg (2,000 unit) Capsule Take 2,000 Units by mouth daily. 09/22/2020 Active ferrous gluconate (Fergon) 324 mg (37.5 mg iron) Tablet Take 1 tablet by mouth daily. 11/03/2020 Active metFORMIN (GLUCOPHAGE) 1,000 mg Tablet Take 1,000 mg by mouth 2 times daily. 11/03/2020 Active nystatin (Mycostatin) 100,000 unit/mL SuspensionIndicatio ns:Oral thrush Take 5 mLs by mouth 4 times daily. 300 mL 1 12/16/2020 Active predniSONE (Deltasone) 10 mg TabletIndications:I LD (interstitial lung disease) Take 1 tablet by mouth daily. 30 tablet 11 08/15/2021 Active Additional Information Patient not taking.Reported on 08/20/2022 atovaquone (Mepron) 750 mg/5 mL SuspensionIndicatio ns:ILD (interstitial lung disease) Take 10 mLs by mouth daily. 210 mL 2 08/25/2021 Active Additional Information Patient not taking.Reported on 08/20/2022 Advair Diskus 500-50 mcg/dose Disk with DeviceIndications:M oderate persistent asthma without complication INHALE 1 PUFF BY MOUTH EVERY 12 HOURS 60 each 1 07/02/2022 Active Spiriva Respimat 1.25 mcg/actuation MistIndications:Mod erate persistent asthma without complication INHALE 2 PUFFS BY MOUTH DAILY 4 g 11 08/20/2022 Active Active Problems Patient Care Coordination No te Formatting of this note migh t be different from the original. Adult Chronic Opioid Therapy Contract signed by PCP, and pt on 01/28/2017 PDMP: 05/30/2018 Problem Noted Date Diagnosed Date Pain in right shoulder 08/26/2017 Fibromyalgia 05/28/2017 Type 2 diabetes mellitus wit hout complication, without long-term current use of insulin 11/28/2016 Fatigue 11/28/2016 Low back pain 09/22/2013 Irritable bowel syndrome 04/21/2013 GERD (gastroesophageal reflux disease) 3 Peptic ulcer disease 04/21/2013 Migraines 04/21/2013 Elevated blood pressure 04/21/2013 Depression 04/13/2013 Body mass index (BMI) of 39.0-39.9 in adult Resolved Problems Problem Noted Date Diagnosed Date Resolved Date HTN (hypertension) 04/13/2013 3 Immunizations Name Administration Dates Next Due Influenza (FluMist) Trivalen t Intranasal, LIVE 04/14/2013(Deferred: Patient Refused) Influenza PF, Split 06/15/2005 Influenza Quadrivalent, Pres ervative Free 05/02/2017 Influenza Trivalent w/Preservative 06/24/2015 Influenza Vaccine, Whole 04/24/2016 Pneumococcal 23-Valent Polys accharide (Pneumovax 23) 12/10/2016,11/29/2015(Deferred: Other) Tdap (Adacel, Boostrix) 11/19/2014 Family History Medical History Relation Comments Glaucoma Father Cancer Maternal Aunt breast cancer Diabetes Maternal Aunt Diabetes Maternal Uncle Cancer Mother cervical Relation Status Comments Father Maternal Aunt Maternal Grandfather Maternal Grandmother Maternal Uncle Mother Paternal Grandfather Paternal Grandmother Social History Tobacco Use Types Packs/Day Years Used Date Smoking Tobacco: Every Day Cigarettes Smokeless Tobacco: Never Tobacco Cessation:Ready to Q uit: No; Counseling Given: No Alcohol Use Standard Drinks/Week Comments No 0 (1 standard drink = 0.6 oz pur e alcohol) Sex and Gender Information Value Date Recorded Sex Assigned at Not on file Gender Identity Not on file Sexual Orientation Not on file Last Filed Vital Signs Vital Sign Reading Time Taken Comments Blood Pressure 114/53 12/16/2020 9:45 AM EDT Pulse 85 12/16/2020 9:45 AM EDT Temperature 35.8 ??C (96.4 ??F) 12/16/2020 9:45 AM ED T Respiratory Rate 18 12/16/2020 9:45 AM EDT Oxygen Saturation 93% 12/16/2020 9:45 AM EDT Inhaled Oxygen Concentration - - Weight 101.8 kg (224 lb 6.9 oz) 12/16/2020 9:45 AM EDT Height 159.5 cm (5' 2.8) 12/16/2020 9:45 AM EDT Body Mass Index 40.02 12/16/2020 9:45 AM EDT Plan of Treatment Health Maintenance Due Date Last Done Comments CT Colonography 1967 FIT DNA 1965 FIT 1965 Sigmoidoscopy 1967 HIV screen 12/04/1985 Hepatitis C Screening 12/04/1985 Hepatitis B vaccine (0-59 yr s) (1) 12/04/1986 Breast Cancer Share Decision Needed 2007 Breast Cancer screening 2007 Zoster vaccine (1 of 2) 12/04/2017 Pneumococcal Vaccine: At-Ris k 5-64yrs (2 of 2 - PCV) 12/10/2017 12/10/2016 DM Opthalmology Exam 11/22/2018 11/22/2017 (Report in e[facility]), 02/08/2017 (Outside per patient (enter details in comments)) DM Hemoglobin A1c 01/31/2019 10/31/2018, , 10/17/2017, Additional history exists DM Urine Microalbumin yearly 02/05/2019 02/05/2018, 12/10/2016 DM Creatinine yearly 11/01/2019 10/31/2018, 05/28/2017, 01/28/2017, Additional history exists Advance Directive 12/04/2022 Covid-19 Vaccine (1 - 2022-2 4 season) 2024 Influenza (Flu) vaccine (1 o f 1 - Influenza standard series) 02/23/2024 05/02/2017, 04/24/2016, 06/24/2015, Additional history exists Tetanus/Diphtheria/Pertussis Vaccines (2 - Td or Tdap) 11/19/2024 11/19/2014 Colonoscopy 02/05/2027 02/05/2017, 01/22, 03/26/2016, Additional history exists Colorectal Cancer Screening 02/05/2027 Sigmoidoscopy (10 year) with FIT yearly 02/05/2027 02/05/2017, 02/05/2017, 03/26/2016, Additional history exists PAP Smear Discontinued 01/17/1998 (See prior EHR) Procedures Procedure Name Priority Date/Time Associated Diagnosis Comments COMPREHENSIVE METABOLIC PANEL Routine 10/31/2018 10:46 AM EDT Type 2 diabetes mellitus without complication, without long-term current use of insulin POCT GLYCATED HEMOGLOBIN, TOTAL (HA1C) Routine 10/31/2018 9:25 AM EDT Type 2 diabetes mellitus without complication, without long-term current use of insulin U ALBUMIN/CRE RATIO Routine 02/05/2018 1 1:10 AM EDT Type 2 diabetes mellitus without complication, without long-term current use of insulin COLONOSCOPY Routine 02/05/2017 10:04 AM EDT from Last 3 Months or Most Recently Relevant to Health Maintenance Results * (ABNORMAL) Comprehensive metabolic panel (non-fasting) (10/31/2018 10:46 AM EDT) Glucose 127 65 - 199 mg/dL [facility] Comment:Diabetes: >=200 mg/d L plus symptoms Blood Urea Nitrogen 9 8 - 18 mg/dL [facility] Creatinine 0.83 0.70 - 1.20 mg/dL [facility] Sodium 139 135 - 145 mmol/L [facility] Potassium 4.2 3.5 - 5.0 mmol/L [facility] Comment: Please note: ??Patients with WBC >100,000 may have falsely elevated Potassium levels. ??For accurate Potassium quantification in these patients send serum separator tube (gold top) for subsequent determinations. ??Contact the Clinical Chemistry Laboratory if there are any questions. Chloride 102 98 - 107 mmol/L [facility] Carbon Dioxide 25 22 - 31 mmol/L [facility] Anion Gap 12 5 - 15 mmol/L [facility] Calcium 8.9 8.5 - 10.5 mg/dL [facility] Protein, Total 8.0 6.1 - 8.0 gm/dL [facility] Albumin 4.0 3.2 - 5.2 gm/dL [facility] Aspartate Aminotransferase 37(H) 0 - 30 unit/L [facility] Alanine Aminotransferase 19 0 - 30 unit/L [facility] Alkaline Phosphatase 140(H) 40 - 104 unit/L [facility] Bilirubin, Total 0.5 0.2 - 1.3 mg/dL [facility] Est Glomerular Filtration Rate 82 >=60 mL/min/1. 73 m?? [facility] Comment: The eGFR was calculated using the CKD-EPI equation. As with all creatinine based estimates of kidney function, eGFR values calculated with the CKD-EPI equation are not accurate in patients with acute kidney failure, extremes of body mass or the acutely ill. http://[employer]/[facility] [place] eGFR 95 >=60 mL/min/1. 73 m?? [facility] Comment: The eGFR was calculated using the CKD-EPI equation. As with all creatinine based estimates of kidney function, eGFR values calculated with the CKD-EPI equation are not accurate in patients with acute kidney failure, extremes of body mass or the acutely ill. http://[employer]/[facility] [email or web address] Blood specimen (specimen) 10/31/2018 10:46 AM EDT 10/31/2018 11:52 AM EDT Narrative Resulting Agency Comment Spec In Lab Nubia Botello APRN CHEMISTRY ORDERA BLES [facility] [place] [address] * (ABNORMAL) POCT glycated hemoglobin, total (HA1C) (10/31/2018 9:25 AM EDT) Hemoglobin A1C, POC 6.9(A) 4.3 - 5.6 % Blood specimen (specimen) 10/31/2018 9:25 AM EDT Nubia Botello APRN POINT OF CARE TE ST ORDERABLES * (ABNORMAL) U Albumin/Cre Ratio (02/05/2018 11:10 AM EDT) Albumin / Creatinin Ratio, Urine 194(H) 0 - 29 mcg/mg Cr [facility] Comment: Reference Ranges: <30 mcg/mg: Normal 30-300 mcg/mg: Moderately increased albuminuria.* >300 mcg/mg: Severely increased albuminuria. * ACEI or ARB recommended if diabetic; suggested if BP>130/80 without diabetes ACEI or ARB strongly recommended if diabetic; recommended if BP>130/80 without diabetes Two of three specimens collected within a 3 to 6 month period should be abnormal before considering a patient to have albuminuria. Transient causes: exercise, fever, infection, CHF, marked hyperglycemia or hypertension. Persistent albuminuria indicates CKD and is an independent risk factor for ASCVD. ADA Standards of Medical Care in Diabetes-2016; KDIGO: Kidney International Supplements (2012) 2, 357? 362 Albumin, Urine 97.0 mg/L [facility] Creatinine, Urine 50 mg/dL [facility] Urine specimen (specimen) 02/05/2018 11:10 AM EDT 02/05/2018 6:52 PM EDT Narrative Resulting Agency Comment Spec In Lab Nubia Botello APRN URINE ORDERABLES [facility] [place] [address] * COLONOSCOPY (02/05/2017 10:04 AM EDT) COLONOSCOPY [facility] Procedure Date: 02/05/2017 10:04 AM ? Patient Name: Nancy Diego ? Date of : 1965 ? Age: 51 ? Order #: [id number] ? Instrument Name: [facility] [id number] ? Procedure: ? Colonoscopy Indications: ? Hematochezia, Negative colo in ? March 2016 Providers: ? Floyd Lopez MD, Roselia Caldwell, ? RN, Charla Hernandez MD: ?Nubia Botello Medicines: ? Propofol per Anesthesia Complications: ? No immediate complications. Procedure: ? The procedure, indications, benefits, ? risks and alternatives were explained ? to the patient. Specifically ? discussed were potential ? complications including, but not ? limited to, bleeding, perforation, ? infection, missing a cancer, and ? adverse medication reactions. The ? patient was placed in the left ? lateral decubitus position, and a ? digital rectal exam was performed. ? The Colonoscope was inserted in the ? anus and under direct visualization, ? advanced to the terminal ileum. ? Careful inspection was made as the ? colonoscope was withdrawn. The ? colonoscopy was performed without ? difficulty. The patient tolerated the ? procedure well. The quality of the ? bowel preparation was evaluated using ? the BBPS ([place] Bowel Preparation ? Scale) with scores of: Right Colon = ? 2 (minor amount of residual staining, ? small fragments of stool and/or ? opaque liquid, but mucosa seen well), ? Transverse Colon = 2 (minor amount of ? residual staining, small fragments of ? stool and/or opaque liquid, but ? mucosa seen well) and Left Colon = 2 ? (minor amount of residual staining, ? small fragments of stool and/or ? opaque liquid, but mucosa seen well). ? The total BBPS score equals 6. Scope ? withdrawal time was 10 minutes. ? Findings: ? The digital rectal exam findings include internal ? hemorrhoids that prolapse with straining, but ? spontaneously regress to the resting position (Grade ? II). Pertinent negatives include normal sphincter ? tone. ? A few small-mouthed diverticula were found in the ? sigmoid colon. ? The terminal ileum appeared normal. ? The colon (entire examined portion) appeared normal. ? External and internal hemorrhoids were found during ? retroflexion, during perianal exam and during ? endoscopy. The hemorrhoids were large. ? Moderate Sedation: ? Not applicable - See Anesthesia documentation Impression: ?- Internal hemorrhoids that prolapse ? with straining, but spontaneously ? regress to the resting position ? (Grade II) found on digital rectal ? exam. ? These are the source of bleeding ? - Diverticulosis in the sigmoid colon. ? - The examined portion of the ileum ? was normal. ? - The entire examined colon is normal. ? - External and internal hemorrhoids. ? - No specimens collected. Recommendation: ?No further colonoscopies for 10 years ? Referral to colorectal surgery ? Attending Participation: ? I personally performed the entire procedure. ? _ Floyd Lopez MD 02/05/2017 10:47:48 AM This report has been signed electronically. Number of Addenda: 0 Note Initiated On: 02/05/2017 10:04 AM PROVATION 02/05/2017 10:0 4 AM EDT Nubia Botello APRN GENERAL SURGICAL ORDERABLES PROVATION from Last 3 Months or Most Recently Relevant to Health Maintenance Care Teams Counter Tacker Relationship Specialty Start Date End Date Brittany Saini APRN [address] [place] [address] PCP - General Family Medicine 09/05/20
--- OUTSIDE RECORDS SUMMARY | 2024-04-03 16:03 | XMS_ITS | Encounter Summary ---
[facility] [place] [address] Care Team Providers Care Reflow Operator Name Role Phone ParveenBrittany GARY Primary Care Provider [phone] Encounter Details Date Type Department Care Team (Late st Contact Info) Description 11/14/2022 Telephone [place] [phone] Kelsey Carmona Social History Tobacco Use Types [...] on filedocumented in this encounter Care Teams Reflow Operator Relationship Specialty Start Date End Date Brittany Saini APRN [address] [place] [address] PCP - General Family Medicine 09/05/20 documented as of this encounter
--- OUTSIDE RECORDS SUMMARY | 2024-04-03 16:03 | XMS_ITS | Encounter Summary ---
Author Organization [facility] [place] [address] Care Team Providers Care Underpresser Hand Name Role Phone Parveen Brittany VEGA Primary Care Provider [phone] Reason for Visit * Reason Comments Medication Refill Encounter Details Date Type Department Care Team (Late st Contact Info) Description 07/02/2022 Ref[place] [address] Anu Galicia MD [facility] [place] [address] Moderate persistent asthma without complication Social History [...] asthma documented in this encounter Care Teams Underpresser Hand Relationship Specialty Start Date End Date Brittany Saini APRN [address] [place] [address] PCP - General Family Medicine 09/05/20 documented as of this encounter
--- OUTSIDE RECORDS SUMMARY | 2024-04-03 16:03 | XMS_ITS | Encounter Summary ---
Author Organization [place] [address] Care Team Providers Care Wool Tamper Name Role Phone Parveen Brittany VEGA Primary Care Provider [phone] Encounter Details Date Type Department Care Team (Late st Contact Info) Description 11/13/2021 Telephone [place] [phone] Rachel Tyler Social History Tobacco Use Types [...] filedocumented in this encounter Care Teams Wool Tamper Relationship Specialty Start Date End Date Brittany Saini APRN [address] [place] [address] PCP - General Family Medicine 09/05/20 documented as of this encounter
--- OUTSIDE RECORDS SUMMARY | 2024-04-03 16:03 | XMS_ITS | Encounter Summary ---
Author Organization [facility] [place] [address] Care Team Providers Care Bus Starter Name Role Phone Brittany Saini APRN Primary Care Provider [phone] Encounter Details Date Type Department Care Team (Late st Contact Info) Description 11/13/2021 Tele[place] [phone] Rachel Tyler Social History Tobacco Use Types [...] * Telephone Encounter - Rachel Tyler - 11/13/2021 8:58 AM EDT called t resched cardona september appt called 1 x documented in this encounter Plan of Treatment Not on file documented as of this encounter Visit Diagnoses Not on filedocumented in this encounter Care Teams Bus Starter Relationship Specialty Start Date End Date Brittany Saini APRN [address] [place] [address] PCP - General Family Medicine 09/05/20 documented as of this encounter
--- OUTSIDE RECORDS SUMMARY | 2024-04-03 16:03 | XMS_ITS | Encounter Summary ---
Author Organization [facility] [place] [address] Care Team Providers Care Engraved Roller Inspector Name Role Phone Parveen Brittany VEGA Primary Care Provider [phone] Reason for Visit * Reason Comments Medication Refill Encounter Details Date Type Department Care Team (Late st Contact Info) Description 07/30/2022 Refill [place] [address] Anu Galicia MD [facility] [place] [address] Moderate persistent asthma without complication Social History [...] asthma documented in this encounter Care Teams Engraved Roller Inspector Relationship Specialty Start Date End Date Brittany Saini APRN [address] [place] [address] PCP - General Family Medicine 09/05/20 documented as of this encounter
--- OUTSIDE RECORDS SUMMARY | 2024-04-03 16:03 | XMS_ITS | Encounter Summary ---
Author Organization [facility] [place] [address] Care Team Providers Care Sand System Operator Name Role Phone Brittany Saini APRN Primary Care Provider [phone] Encounter Details Date Type Department Care Team (Late st Contact Info) Description 03/06/2022 [place] [phone] Rachel Tyler Social History Tobacco Use Types [...] * Telephone Encounter - Rachel Tyler - 03/06/2022 10:06 AM EDT lm to resched cardona appt documented in this encounter Plan of Treatment Not on file documented as of this encounter Visit Diagnoses Not on filedocumented in this encounter Care Teams Sand System Operator Relationship Specialty Start Date End Date Brittany Saini APRN [address] [place] [address] PCP - General Family Medicine 09/05/20 documented as of this encounter
--- OUTSIDE RECORDS SUMMARY | 2024-04-03 16:04 | XMS_ITS | Encounter Summary ---
Author Organization [facility] [place] [address] Care Team Providers Care Basic Combatant Swimmer Name Role Phone Rosmery, Nubia Lopez APRN Primary Care Provider + Reason for Visit * Reason Onset Date Comments Medication Refill 02/03/2018 Encounter Details Date Type Department Care Team (Late st Contact Info) Description 02/03/2018 Refill Internal Medicine at [address] [address] Erinn Montemayor, BIODIESEL PRODUCT MANAGER Social History Tobacco Use Types Packs/Day Years [...] on filedocumented in this encounter Care Teams Basic Combatant Swimmer Relationship Specialty Start Date End Date Nubia Botello APRN [facility] [address] [place] [address] PCP - General 01/16/14 01/28/19 documented as of this encounter
--- OUTSIDE RECORDS SUMMARY | 2024-04-03 16:04 | XMS_ITS | Encounter Summary ---
Author Organization [facility] [place] [address] Care Team Providers Care Technical Inspector Name Role Phone Nubia Botello APRN Primary Care Provider + Reason for Visit * Reason Comments Depression one month followup Encounter Details Date Type Department Care Team (Late st Contact Info) Description 11/27/2017 10:00 AM EDT Office Visit Internal Medicine at [address] [address] Nubia Botello APRN [facility] [place] [address] Fibromyalgia (Primary Dx); Depression, unspecified depression type Social History Tobacco Use Types Packs/Day Years Used Date Smoking Tobacco: Every Day Cigarettes Smokeless Tobacco: Never Alcohol Use Standard Drinks/Week Comments No 0 (1 standard drink = 0.6 oz pur e alcohol) Sex and Gender Information Value Date Recorded Sex Assigned at Not on file Gender Identity Not on file Sexual Orientation Not on file documented as of this encounter Last Filed Vital Signs Vital Sign Reading Time Taken Comments Blood Pressure 120/48 11/27/2017 9:48 AM EDT Pulse 91 11/27/2017 9:48 AM EDT Temperature - - Respiratory Rate - - Oxygen Saturation 98% 11/27/2017 9:48 AM EDT Inhaled Oxygen Concentration - - Weight 105 kg (231 lb 6.4 oz) 11/27/2017 9:48 AM EDT Height 162.6 cm (5' 4) 11/27/2017 9:48 AM EDT r eported Body Mass Index 39.72 11/27/2017 9:48 AM EDT documented in this encounter Progress Notes * Nubia Botello APRN - 11/27/2017 10:00 AM EDT PCP: Nubia Botello APRN Chief Complaint Patient presents with ??? Depression one month followup SUBJECTIVE: Nancy Diego is a 52 y.o. female who presents for follow up on her mood and depression. She was seen over a month ago for ongoing fibromyalgia, depression and her diabetes. She was started on wellbutrin in addition to the cymbalta to help with her depression. She reports that the wellbutrin seemed to help with his mood. - she did not find there pain center to be helpful. She reports that she would not want to return. She states that she has ongoing and worsening pain. She does not want narcotic pain medications. Review of Systems Constitutional: Positive for fatigue. Musculoskeletal: Positive for arthralgias, back pain, gait problem and myalgias. Psychiatric/Behavioral: Positive for sleep disturbance. Allergies Allergen Reactions ??? Latex Skin cracks and bleeds ??? Penicillins Rash Current Outpatient Prescriptions Medication Sig Dispense Refill ??? gabapentin (NEURONTIN) 300 mg Capsule Take 3 capsules by mouth 3 times daily. 810 capsule 3 ??? metFORMIN (GLUCOPHAGE-XR) 500 mg Tablet Sustained Release 24 hr Take 2 tablets by mouth daily. Increase to 2 tablets in the morning and 500 mg at night for 2 weeks, then 2 tablets twice a day with meals. 120 tablet 5 ??? buPROPion (WELLBUTRIN XL) 150 mg Tablet Extended Release 24 hr Take 1 tablet by mouth every morning. 30 tablet 3 ??? atorvastatin (LIPITOR) 20 mg Tablet Take 1 tablet by mouth daily. 90 tablet 3 ??? cyclobenzaprine (FLEXERIL) 10 mg Tablet Take 1 tablet by mouth 3 times daily as needed for Muscle spasms. (Patient taking differently: Take 10 mg by mouth 3 times daily.) 90 tablet 3 ??? DULoxetine (CYMBALTA) 60 mg Capsule, Delayed Release(E.C.) Take 1 capsule by mouth daily. 90 tablet 1 ??? aspirin 81 mg Tablet, Delayed Release (E.C.) Take 1 tablet by mouth daily. 30 tablet 3 ??? lisinopril (PRINIVIL;ZESTRIL) 20 mg Tablet Take 1 tablet by mouth daily. 90 tablet 3 ??? lancets (FREESTYLE LANCETS) 28 [...] Indications: Diabetes Mellitus 1 each 0 ??? albuterol (PROAIR HFA) 90 mcg/actuation HFA Aerosol Inhaler Inhale 2 puffs into the lungs every4 hours as needed for Wheezing. Use with spacer 1 Inhaler 1 ??? acetaminophen (TYLENOL) 500 mg tablet Take 1,000 mg by mouth every 6 hours as needed. ??? methocarbamol (ROBAXIN) 750 mg Tablet Take 1 tablet by mouth 4 times daily. 60 tablet 0 No current facility-administered medications for this visit. Patient Active Problem List Diagnosis Code ??? Depression F32.9 ??? Irritable bowel syndrome K58.9 ??? GERD (gastroesophageal reflux disease) K21.9 ??? Peptic ulcer disease K27.9 ??? Migraines G43.909 ??? Elevated blood pressure [id number] ??? Body mass index (BMI) of 39.0-39.9 in adult Z68.39 ??? Low back pain M54.5 ??? Type 2 diabetes mellitus without complication, without long-term current use of insulin E11.9 ??? Fatigue R53.83 ??? Fibromyalgia M79.7 ??? Pain in right shoulder M25.511 OBJECTIVE: Vitals: 11/27/17 0948 BP: 120/48 BP Location (NBP): Right arm Patient Position: Sitting BP Cuff Sizes: Large Adult (32-43 cm) Pulse: 91 SpO2: 98% Weight: 105 kg (231 lb 6.4 oz) Height: 162.6 cm (5' 4) PHYSICAL EXAM: Physical Exam Constitutional: She is oriented to person, place, and time. She appears well- developed and well-nourished. No distress. Pulmonary/Chest: Effort normal and breath sounds normal. Neurological: She is alert and oriented to person, place, and time. Skin: Skin is warm and dry. Psychiatric: She exhibits a depressed mood. ASSESSMENT & PLAN: Nancy was seen today for depression. Diagnoses and all orders for this visit: Fibromyalgia - methocarbamol (ROBAXIN) 750 mg Tablet; Take 1 tablet by mouth 4 times daily. - discussed prior treatments, reviewed other medication options and cost of medications as she doesnot feel that she could afford compounded medications. Reviewed recommendations from pain center. Will have her do trial of robaxin and stop the flexeril. Discussed the importance of starting with small amount of exercise and increasing it slowly. Depression, unspecified depression type - continue on current medications Greater than 25 minutes of this 30 minute was spent counseling/coordination of care, review of treatment, plan of care and follow up of the above diagnoses. documented in this encounter Plan of Treatment Not on file documented as of this encounter Visit Diagnoses Diagnosis Fibromyalgia- Primary Mylagia and myositis, unspecified Depression, unspecified depression type documented in this encounter Care Teams Technical Inspector Relationship Specialty Start Date End Date Nubia Botello APRN [facility] [address] [place] [address] PCP - General 01/16/14 01/28/19 documented as of this encounter
--- OUTSIDE RECORDS SUMMARY | 2024-04-03 16:04 | XMS_ITS | Encounter Summary ---
Author Organization [facility] [place] [address] Care Team Providers Care Detective Investigator Name Role Phone Rosmery, Nubia Lopez APRN Primary Care Provider + Reason for Visit * Reason Onset Date Comments Medication Refill 05/27/2018 Encounter Details Date Type Department Care Team (Late st Contact Info) Description 05/27/2018 Refill Internal Medicine at [address] [address] Erinn Montemayor, RELIEF MATE Social History Tobacco Use Types Packs/Day Years [...] on filedocumented in this encounter Care Teams Detective Investigator Relationship Specialty Start Date End Date Nubia Botello APRN [facility] [address] [address] PCP - General 01/16/14 01/28/19 documented as of this encounter
--- OUTSIDE RECORDS SUMMARY | 2024-04-03 16:04 | XMS_ITS | Encounter Summary ---
Author Organization [facility] [place] [address] Care Team Providers Care Oil Heat Technician Name Role Phone Brittany Saini APRN Primary Care Provider [phone] Reason for Visit * Reason Onset Date Comments Medication Refill 04/10/2021 Encounter Details Date Type Department Care Team (Late st Contact Info) Description 04/10/2021 Refill Pulmonology at [facility] [place] [address] Jackie Chaney RN ILD (interstitial lung disease) Social History Tobacco [...] encounter Miscellaneous Notes * Telephone Encounter - Jackie Chaney RN - 04/10/2021 11:57 AM EDT Rec'd voicemail from patient, stating that she had been prescribed both atovaquone, as well as prednisone. She has completed the prescription written for atovaquone, but still continues on the oral prednisone. She questions if she was to get a new prescription and continue her atovaquone. RN called to update patient that message had been received. RN relayed that Dr. Galicia was covering in the ICU, and there could be a slight delay in response. She notes that her breathing is still tough, but improving. She has noted an overall improvement feeling a lot better than before. She continues on 10 mg oral prednisone, one tab a day. When asked, she has not noted any side effects from this medication, noting that she has actually lost weight. She could not comment on a sleep disturbance, noting that she has sleep apnea and difficulty at baseline. documented in this encounter Plan of Treatment Not on file documented as of this encounter Visit Diagnoses Diagnosis ILD (interstitial lung disease) Postinflammatory pulmonary fibrosis documented in this encounter Care Teams Oil Heat Technician Relationship Specialty Start Date End Date Brittany Saini, [place] [address] [place] [address] PCP - General Family Medicine 09/05/20 documented as of this encounter
--- OUTSIDE RECORDS SUMMARY | 2024-04-03 16:04 | XMS_ITS | Encounter Summary ---
Author Organization [facility] [place] [address] Care Team Providers Care Endband Cutter Hand Name Role Phone Rosmery Nubia Lopez APRN Primary Care Provider + Reason for Visit * Reason Onset Date Comments Medication Refill 10/29/2017 Encounter Details Date Type Department Care Team (Late st Contact Info) Description 10/29/2017 Refill Internal Medicine at [address] [address] Chhaya Cee, KLEVERA Fibromyalgia Social History Tobacco Use Types Packs/Day Years [...] as of this encounter Visit Diagnoses Diagnosis Fibromyalgia Mylagia and myositis, unspecified documented in this encounter Care Teams Endband Cutter Hand Relationship Specialty Start Date End Date Nubia Botello APRN [facility] [place] [address] PCP - General 01/16/14 01/28/19 documented as of this encounter
--- OUTSIDE RECORDS SUMMARY | 2024-04-03 16:04 | XMS_ITS | Encounter Summary ---
Author Organization [facility] [place] [address] Care Team Providers Care Structural Iron Worker Name Role Phone Nubia Botello APRN Primary Care Provider + Encounter Details Date Type Department Care Team (Late st Contact Info) Description 07/19/2018 Telephone Internal Medicine at [facility] [place] [phone] Katharine Becerra [place] [facility] [place] [address] Social History Tobacco Use Types Packs/Day Years [...] encounter Miscellaneous Notes * Telephone Encounter - Katharine Becerra DO - 07/19/2018 7:42 PM EST Called the front desk admin Changed metformin 09/2017 1,000 mg twice daily. I don't see where this was reduced or why it was reduced in the notes. She has been taking this since 09/2017. Last script--05/28/18 refilled it 500 mg twice daily unclear why She denies any issues with the medications or notified it was reduced I will change script to 1000 mg twice daily so it will be refilled by insurance. Will give 8 tabs and she will clarify with PCP Saturday the discrepancy documented in this encounter Plan of Treatment Not on file documented as of this encounter Visit Diagnoses Not on filedocumented in this encounter Care Teams Structural Iron Worker Relationship Specialty Start Date End Date Nubia Botello APRN [facility] [place] [address] PCP - General 01/16/14 01/28/19 documented as of this encounter
--- OUTSIDE RECORDS SUMMARY | 2024-04-03 16:04 | XMS_ITS | Encounter Summary ---
Author Organization [facility] [place] [address] Care Team Providers Care Steel Division Supervisor Name Role Phone Nubia Botello APRN Primary Care Provider + Reason for Visit * Reason Comments Annual Exam Diabetes followup Other has not started usin g the clobetasol yet, been 2 weeks still waiting for insurance to approve it, legs are getting worse Other incision from c-sect ion 27 years ago, has opened up in one area, daughter put ster-strips on it Depression followup, having a h agustin time due to losing her Encounter Details Date Type Department Care Team (Late st Contact Info) Description 02/05/2018 10:20 AM EDT Office Visit Internal Medicine at [address] [id number] Nubia Botello APRN [facility] [address] Health care maintenance (Primary Dx); Type 2 diabetes mellitus without complication, without long-term current use of insulin; Encounter for screening mammogram for breast cancer; Depression, unspecified depression type Social History Tobacco [...] Sign Reading Time Taken Comments Blood Pressure 118/45 02/05/2018 9:54 AM EDT Pulse 90 02/05/2018 9:54 AM EDT Temperature 37.1 ??C (98.8 ??F) 02/05/2018 9:54 AM ED T Respiratory Rate - - Oxygen Saturation 94% 02/05/2018 9:54 AM EDT Inhaled Oxygen Concentration - - Weight 105.8 kg (233 lb 3.2 oz) 02/05/2018 9:54 AM EDT Height 161 cm (5' 3.39) 02/05/2018 9:54 AM EDT Body Mass Index 40.81 02/05/2018 9:54 AM EDT documented in this encounter Progress Notes * Nubia Botello APRN - 02/05/2018 10:20 AM EDT PCP: Nubia Botello APRN SUBJECTIVE: 52 y.o. female presents for annual exam. Diabetes- a1c is down from 8.6 to 7 today! Lab Results Component Value Date HA1C 7.0 (A) 02/05/2018 Rash- using the lotrimin on her own and not helping. She is getting prior auth for the steroid cream. No change in the rash. Social history- her suddenly on December 26, 2017. She is trying to care for her adopted grandchildren and help her daughters. They all live together. Skin is open along her surgical scar. She applied steri strips. No fevers or chills. Patient Active Problem List Diagnosis Code ??? Depression F32.9 ??? Irritable bowel syndrome K58.9 ??? GERD (gastroesophageal reflux disease) K21.9 ??? Peptic ulcer disease K27.9 ??? Migraines G43.909 ??? Elevated blood pressure [id number] ??? Body mass index (BMI) of 39.0-39.9 in adult Z68.39 ??? Low back pain M54.5 ??? Type 2 diabetes mellitus without complication, without long-term current use of insulin E11.9 ??? Fatigue R53.83 ??? Fibromyalgia M79.7 ??? Pain in right shoulder M25.511 DIET- EXERCISE- LIPID SCREENING- Lipid Panel Lab Results Component Value Date CHLPL 186 12/22/2015 HDL 30 (L) 12/22/2015 CHOLHDL 6.2 12/22/2015 TRIG 551 (H) 12/22/2015 LDLCHOL Not Calculated 12/22/2015 LDLDIRECT 102 (H) 12/22/2015 COLONOSCOPY- Discussed UTD BREAST CANCER SCREENING- discusse TDAP-is up to date FLU- recommended SHINGLES- discussed and declined HIV- declined EYE EXAM- due soon PNEUMOCOCCAL- due at age 67 Allergies Allergen Reactions ??? Latex Skin cracks and bleeds ??? Penicillins Rash Current Outpatient Prescriptions Medication Sig Dispense Refill ??? methocarbamol (ROBAXIN) 750 mg Tablet Take 1 tablet by mouth 4 times daily. 60 tablet 0 ??? clotrimazole (LOTRIMIN) 1 % Cream Apply topically 2 times daily. 30 g 0 ??? gabapentin (NEURONTIN) 300 mg Capsule Take [...] mouth every 6 hours as needed. ??? clobetasol (TEMOVATE) 0.05 % Cream Apply topically 2 times daily. (Patient not taking: Reportedon 02/05/2018) 30 g 0 No current facility-administered medications for this visit. History Smoking Status ??? Current Every Day Smoker ??? Packs/day: 0.50 ??? Types: Cigarettes Smokeless Tobacco ??? Never Used myD-H Primary Care 02/05/2018 PROMIS 10-Health in general Fair PROMIS 10-Quality of life Fair PROMIS 10-Physical health Fair PROMIS 10-Mental health Fair PROMIS 10-Satisfaction with social activities Fair PROMIS 10-Ability to carry out social activities Fair PROMIS 10-Ability to carry out physical activities A little PROMIS 10-Bothered by emotional problems Often PROMIS 10-Rate of fatigue Severe PROMIS 10-Rate of pain 8 PROMIS 10- Physical Health Score 29.6 PROMIS 10- Mental Health Score 33.8 REVIEW OF SYSTEMS 02/05/2018 Constitutional Weakness, Fatigue, lack of energy, Drowsiness, Pain Ear / nose / throat / mouth Dry mouth, Difficulty swallowing Eyes Blurry vision Respiratory None of the above Cardiovascular Fluttering heart beat (heart palpitations) Gastrointestinal Trouble swallowing, Blood in stools, Heartburn, indigestion, Diarrhea Skin, hair Rash, Dry skin, Itching Musculoskeletal Joint stiffness, Back pain, Joint pain, Muscle stiffness, Unable to walk/difficultywalking Neurological Balance difficulty, dizziness, Headaches, Muscular weakness Hematologic / Lymphatic - Genitourinary None of the above PHQ-9 QUESTIONNAIRE (AMB) 02/05/2018 PHQ - 9 Score (Clinic) - PHQ - 9 Score (Patient) 13 (Moderate Depression) Little interest or pleasure (Clinic) - Little interest or pleasure (Patient) More than half the days Down, depressed, hopeless (Clinic) - Down, depressed, hopeless (Patient) More than half the days Trouble sleeping (Clinic) - Trouble sleeping (Patient) More than half the days Tired or no energy (Clinic) - Tired or no energy (Patient) More than half the days Poor appetite or overeating (Clinic) - Poor appetite or overeating (Patient) More than half the days Feeling like a failure (Clinic) - Feeling like a failure (Patient) Several days Trouble concentrating (Clinic) - Trouble concentrating (Patient) More than half the days Moving or speaking slowly (Clinic) - Moving or speaking slowly (Patient) Not at all Would be better off (Clinic) - Would be better off (Patient) Not at all How difficult are the problems (Clinic) - Physical Exam: Vitals: 02/05/18 0954 BP: 118/45 BP Location (NBP): Left arm Patient Position: Sitting BP Cuff Sizes: Large Adult (32-43 cm) Pulse: 90 Temp: 37.1 ??C (98.8 ??F) TempSrc: Oral SpO2: 94% Weight: 105.8 kg (233 lb 3.2 oz) Height: 161 cm (5' 3.39) Physical Exam Constitutional: She is oriented to person, place, and time. She appears well- developed and well-nourished. No distress. HENT: Head: Normocephalic and atraumatic. Right Ear: Tympanic membrane and external ear normal. Left Ear: Tympanic membrane and external ear normal. Mouth/Throat: Oropharynx is clear and moist and mucous membranes are normal. No oropharyngeal exudate. Eyes: Conjunctivae are normal. Right eye exhibits no discharge. Left eye exhibits no discharge. Neck: Neck supple. No thyromegaly present. Cardiovascular: Normal rate, regular rhythm and normal heart sounds. Exam reveals no friction rub. No murmur heard. Pulmonary/Chest: Effort normal. Abdominal: Soft. Bowel sounds are normal. She exhibits no distension and no mass. There is no tenderness. There is no rebound and no guarding. Musculoskeletal: Normal range of motion. Lymphadenopathy: She has no cervical adenopathy. Neurological: She is alert and oriented to person, place, and time. She displays normal reflexes. No cranial nerve deficit. Skin: Skin is warm and dry. No rash noted. Psychiatric: Her speech is normal. Judgment normal. She is slowed and withdrawn. Cognition and memory are normal. She exhibits a depressed mood. She expresses suicidal (in past after loss , noplan, family is protective factors) ideation. She expresses no suicidal plans. Tearful at times Body mass index is 40.81 kg/(m^2). Assessment/Plan: Nancy was seen today for annual exam, diabetes, other, other and depression. Diagnoses and all orders for this visit: Health care maintenance - a1c is great today - reviewed eating healthy as I am concerned that improvement is her lack of eating after loss of her - f/u one month for depression Type 2 diabetes mellitus without complication, without long-term current use of insulin - POCT glycated hemoglobin, total (HA1C) - U Albumin/Cre Ratio; Future - U Albumin/Cre Ratio Depression, unspecified depression type - much of appt spent discussing her , she is depressed and unable to talk with family, therapy not an option at this time. She is having a lot of financial struggles as well. Cellulitis- - Doxycycline Hyclate (PERIOSTAT) 100 mg Tablet, Delayed Release (E.C.); Take 1 tablet by mouth 2 times daily for 10 days. Health Maintenance Due Topic Date Due ??? HIV screen 12/04/1985 ??? Breast Cancer Screening 12/04/2017 ??? Zoster vaccine (1 of 2) 12/04/2017 ??? DM Urine Microalbumin yearly 12/10/2017 ??? DM Hemoglobin A1c 01/16/2018 documented in this encounter Plan of Treatment Not on file documented as of this encounter Procedures Procedure Name Priority Date/Time Associated Diagnosis Comments U ALBUMIN/CRE RATIO Routine 02/05/2018 1 1:10 AM EDT Type 2 diabetes mellitus without complication, without long-term current use of insulin POCT GLYCATED HEMOGLOBIN, TOTAL (HA1C) Routine 02/05/2018 10:00 AM EDT Type 2 diabetes mellitus without complication, without long-term current use of insulin documented in this encounter Results * (ABNORMAL) U Albumin/Cre Ratio (02/05/2018 11:10 AM EDT) Albumin / Creatinin Ratio, Urine 194(H) 0 - 29 mcg/mg [facility]ATORY Comment: Reference Ranges: <30 mcg/mg: Normal [...] 2, 357? 362 Albumin, Urine 97.0 mg/L [facility] Creatinine, Urine 50 mg/dL [facility] Urine specimen (specimen) 02/05/2018 11:10 AM EDT 02/05/2018 6:52 PM EDT Narrative Resulting Agency Comment Spec In Lab Nubia Botello APRN URINE ORDERABLES [facility] [place] [address] * (ABNORMAL) POCT glycated hemoglobin, total (HA1C) (02/05/2018 10:00 AM EDT) Hemoglobin A1C, POC 7.0(A) 4.3 - 5.6 % 02/05/2018 10:0 0 AM EDT Nubia Botello APRN POINT OF CARE TE ST ORDERABLES documented in this encounter Visit Diagnoses Diagnosis Health care maintenance- Primary Unspecified general medical examination Type 2 diabetes mellitus without complication, without long-term current use of insulin Encounter for screening mammogram for breast cancer Depression, unspecified depression type documented in this encounter Care Teams Steel Division Supervisor Relationship Specialty Start Date End Date Nubia Botello APRN [facility] [address] [place] [address] PCP - General 01/16/14 01/28/19 documented as of this encounter
--- OUTSIDE RECORDS SUMMARY | 2024-04-03 16:04 | XMS_ITS | Encounter Summary ---
Author Organization [facility] [place] [address] Care Team Providers Care Tester Rocket Engine Name Role Phone Nubia Botello APRN Primary Care Provider + Encounter Details Date Type Department Care Team (Late st Contact Info) Description 12/30/2017 Telephone Internal Medicine at [address] [address] Viky Robbins Social History Tobacco Use Types Packs/Day Years [...] encounter Miscellaneous Notes * Telephone Encounter - Nubia Botello APRN - 12/30/2017 10:32 AM EDT Called and spoke with Nancy. She is struggling with the sudden of her on December 26. Shefeels numb and is trying to stay strong for her family. They were for almost 31 years. She feels that it should have been her. She has had a lot of family and friends who have been visiting. She has not let any of her family know how she is feeling. - She reports that she has contacted department and will need list of names and dates of providers that she has seen. * Telephone Encounter - Viky Robbins - 12/30/2017 8:35 AM EDT Nancy, would like you to call her to discuss Social Security disability benefits as her on December 26. documented in this encounter Plan of Treatment Not on file documented as of this encounter Visit Diagnoses Not on filedocumented in this encounter Care Teams Tester Rocket Engine Relationship Specialty Start Date End Date Nubia Botello, G[facility] [address] [place] [address] PCP - General 01/16/14 01/28/19 documented as of this encounter
--- OUTSIDE RECORDS SUMMARY | 2024-04-03 16:04 | XMS_ITS | Encounter Summary ---
Author Organization [facility] [place] [address] Care Team Providers Care School Treasurer Name Role Phone Rosmery, Nubia Lopez APRN Primary Care Provider + Reason for Visit * Reason Onset Date Comments Medication Refill 03/05/2018 Encounter Details Date Type Department Care Team (Late st Contact Info) Description 03/05/2018 Refill Internal Medicine at [address] [address] Erinn Montemayor, UM RN Depressive disorder Social History Tobacco Use Types Packs/Day Years [...] as of this encounter Visit Diagnoses Diagnosis Depressive disorder Depressive disorder, not elsewhere classified documented in this encounter Care Teams School Treasurer Relationship Specialty Start Date End Date Nubia Botello APRN [facility] [place] [address] PCP - General 01/16/14 01/28/19 documented as of this encounter
--- OUTSIDE RECORDS SUMMARY | 2024-04-03 16:04 | XMS_ITS | Encounter Summary ---
Author Organization [facility] [place] [address] Care Team Providers Care Building Construction Estimator Name Role Phone RosmeryNubia ferreira GARY Primary Care Provider + Reason for Visit * Reason Comments Medication Refill Encounter Details Date Type Department Care Team (Late st Contact Info) Description 09/29/2018 Refill Internal Medicine at [address] [id number] Katie Ervin MD [facility] [address] [address] Social History Tobacco Use Types Packs/Day Years [...] on filedocumented in this encounter Care Teams Building Construction Estimator Relationship Specialty Start Date End Date Nubia Botello APRN [facility] [address] [address] PCP - General 01/16/14 01/28/19 documented as of this encounter
--- OUTSIDE RECORDS SUMMARY | 2024-04-03 16:04 | XMS_ITS | Encounter Summary ---
Author Organization [place] [address] Care Team Providers Care Automobile Mechanic Name Role Phone Rosmery, Nubia Lopez APRN Primary Care Provider + Reason for Visit * Reason Onset Date Comments Medication Refill 06/03/2018 Encounter Details Date Type Department Care Team (Late st Contact Info) Description 06/03/2018 Refill Internal Medicine at [address] [address] Chhaya Cee, JAYSON Social History Tobacco Use Types Packs/Day Years [...] on filedocumented in this encounter Care Teams Automobile Mechanic Relationship Specialty Start Date End Date Nubia Botello APRN [facility] [place] [address] PCP - General 01/16/14 01/28/19 documented as of this encounter
--- OUTSIDE RECORDS SUMMARY | 2024-04-03 16:04 | XMS_ITS | Encounter Summary ---
Author Organization [facility] [place] [address] Care Team Providers Care Tire Building Supervisor Name Role Phone Brittany Saini APRN Primary Care Provider [phone] Reason for Referral * Consultation (Routine) - Closed Specialty Diagnoses / Procedures Referred By Dennis t Referred To Contact Primary Care Diagnoses Tobacco abuse Anu Galicia MD [facility] [place] [address] [facility] [place] [address] Referral ID Status Reason Start Date Expiration Date V isits Requested Visits Authorized [id number] Closed Consult, Test & Treat 01/09/2021 01/09/2022 1 1 Encounter Details Date Type Department Care Team (Late st Contact Info) Description 01/09/2021 [place] [address] Anu Galicia MD [facility] [place] [address] Social History Tobacco Use Types Packs/Day Years [...] encounter Miscellaneous Notes * Telephone Encounter - Anu Galicia MD - 01/09/2021 5:12 PM EDT Spoke to Nancy and have reviewed the CT chest findings with her. The CT chest findings could be secondary to Hypersensitivity pneumonitis, though I was unable to identify a clear trigger. The other possibility is RB-ILD vs DIP. She continues to smoke and I have recommended stopping smoking as that is first line treatment for RB-ILD. She has a follow up visit with me in the next month and if her symptoms continue after quitting smoking, we can consider a trial of prednisone for the possibility of HSP. I have placed a referral for the smoking cessation program for her. documented in this encounter Plan of Treatment Scheduled Referrals Name Type Priority Associated Diagnoses Orde r Schedule Referral to Smoking Cessation Program Outpatient Referral Routine Tobacco abuse Ordered: 01/09/2021 documented as of this encounter Visit Diagnoses Diagnosis Tobacco abuse Tobacco use disorder documented in this encounter Care Teams Tire Building Supervisor Relationship Specialty Start Date End Date Brittany Saini, GARY [address] [place] [address] PCP - General Family Medicine 09/05/20 documented as of this encounter
--- OUTSIDE RECORDS SUMMARY | 2024-04-03 16:04 | XMS_ITS | Encounter Summary ---
Author Organization [facility] [place] [address] Care Team Providers Care Security Guard Name Role Phone Brittany Saini APRN Primary Care Provider Encounter Details Date Type Department Care Team (Late st Contact Info) Description 02/15/2021 Telephone [place] [address] Marcelle Arnold Social History Tobacco Use Types [...] * Telephone Encounter - Marcelle Arnold - 02/15/2021 9:11 AM EDT ..Tobacco Treatment Consultation Marcelle Arnold (Kate) [facility] [place] [place] [address] FAX: HPI: Nancy Diego is a 55 y.o. female who is being seen today for tobacco cessation. Type of tobacco used: () Smokeless tobacco () e-cigarette ( X) Cigarettes Brand currently smoking: Full flavor [place] 20's Current amount: 1/2 ppd ppd Cost per pack: 7.50 Age initiated: 17 Years smoked: 40 Previous quit attempts and methods: quit in 2009-quit for 4 weeks. Most recent quit attempt: years ago Are there other smokers in the home: 1 Are there children in the home: 5 What will be different this time: Has health issues. Positive aspects of smoking: relieves stress (me time) Negative aspects of smoking: health issues Reasons for quitting: doctor wants her to quit Concerns about quitting: doesn't want to be agitated. Concerns about weight gain:no Triggers for smoking: stress Ready to set a quit date: wants to try right away Readiness: Importance scale: 10 Confidence scale: 5 Support systems include: family is supportive. Doctors are supportive. Stage of Change: Precontemplation: Contemplation: Preparation: X Action: Maintenance: t NICOTINE DEPENDENCE 0 Points 1Points 2 Points 3 Points Score 1.How soon after waking do you smoke your first cigarette? After 60 minutes 31- 60 minutes minutes 6-30 minutes Within 5 minutes 3 2. Do you find it difficult to refrain from smoking in places where it is forbidden? (ex. bahai) No Yes 0 3. Which cigarette would you hate to give up? All others The first one in the morning 1 4. How many cigarette do you smoke a day? 10 or less 11-20 21-30 30 or more 1 Do you smoke more frequently during the first hour after waking than the rest of the day? No Yes 1 6. Do you smoke if you are so ill that you are in bed all day? 0 Classification: 6 high 0-2 Very low 3-4 Low 5 Moderate 6-7 High 8-10 Very high Assessment/Plan: Ms. Diego has a Fagerstrom Score of 6 indicating a high dependence on Nicotine. I reviewed the physiology of addiction as well as apparent health risks specific to the patient. I discussed the options for treatment including NRT, Zyban and Chantix. I reviewed possible side effects of therapy. I stressed that medication alone is not optimum but used in conjunction with behavioral counseling will add to success for cessation. The patient decided that the best course of action is using the nicotine patch and lozenges to start. I reviewed the correct way to use the Nicotine patch, changing the place where it is put it on the skin daily, and proper disposal, to keep it out of reach of children or pets. I warned that some patients experience vivid dreams on the patch and instructed that if this were to happen the patch should be removed at bedtime and replaced each morning. The patient should be sure to leave a nicotine lozenge at the bedside to use first thing every morning. The patient will be on 21 mg. Nicotine patches for two weeks or until she feels comfortable stepping down to the next level. If at any point after tapering the patient has an increased craving they should go back to the higher dose for another two weeks then try to decrease again. I instructed Ms. Diego in the correct use of the Nicotine lozenge and explained that the nicotine would be absorbed through the mucous membranes of the mouth, at a specific pH or acidity. Therefore they should not eat or drink anything except water for 15 minutes before or during use of the lozengeor the nicotine would not be absorbed and the medication won't help . The patient understands it should not be chewed or swallowed whole or in pieces. The maximum number of lozenges to be used in a day is 20. Most people who use the Nicotine patch plus lozenges generally use about 4-5 lozenges a day. The patient has been instructed to use the lozenge upon awakening, 30 minutes before meals and atbedtime at a minimum. It can also be used every 1-2 hours in between. The lozenge should be used when there is a strong urge to smoke, instead of smoking. I also calculated and shared with the savings once she quit smoking @ 7.50 per pack. The patient should start thinking about how she want to reward herself with all of the extra money she will have that would have gone up in smoke if she had not quit. I have encouraged the patient to put aside their savings every day that they do not smoke. tBy the end of several weeks they should have sufficientamount of money saved to purchase additional medication to help with this quit attempt or to rewardthemselves. I reviewed several tips for helping with quitting including the 4 D's, using straws cut the length of cigarettes, cinnamon sticks, flavored toothpicks, sugar free candy, etc. We discussed the importance of exercise, especially walking. Support systems include: her family and doctors. The patient has been provided with a [facility] Smoking Cessation packet. The patient has my contact information and has been encouraged to call with additional questions or concerns. The patient also has the Quit line number and the smokefree txt information. Patient has been advised to contact me if any unusual symptoms occur. A follow up phone appointment has been made for Thursday 02/22 @ 9 a.m. Next steps: Lenora to send medication request To Dr. Saini. Nancy to practice not going outside to smoke, instead finding other things inside in Order to begin tapering. Her daughter is also interested in quitting. In the meantime it is important for the daughter to keep tobacco out of sight. Marcelle Arnold 02/15/21 Tobacco Treatment Program [facility] documented in this encounter Plan of Treatment Not on file documented as of this encounter Visit Diagnoses Not on filedocumented in this encounter Care Teams Security Guard Relationship Specialty Start Date End Date Brittany Saini, GARY [address] [place] [address] PCP - General Family Medicine 09/05/20 documented as of this encounter
--- OUTSIDE RECORDS SUMMARY | 2024-04-03 16:04 | XMS_ITS | Encounter Summary ---
Author Organization [facility] [place] [address] Care Team Providers Care Editor Managing Director Name Role Phone Parveen Brittany VEGA Primary Care Provider [phone] Reason for Visit * Reason Comments Medication Refill Encounter Details Date Type Department Care Team (Late st Contact Info) Description 03/02/2019 Refill Internal Medicine at [address] [address] Nubia Botello APRN [facility] [place] [address] Social History Tobacco Use Types Packs/Day Years [...] on filedocumented in this encounter Care Teams Editor Managing Director Relationship Specialty Start Date End Date Brittany Saini APRN [address] [place] [address] PCP - General Family Medicine 09/05/20 documented as of this encounter
--- OUTSIDE RECORDS SUMMARY | 2024-04-03 16:04 | XMS_ITS | Encounter Summary ---
Author Organization [facility] [place] [address] Care Team Providers Care Equity Analyst Name Role Phone RosmeryNubia ferreira GARY Primary Care Provider + Reason for Visit * Reason Comments Medication Refill Encounter Details Date Type Department Care Team (Late st Contact Info) Description 09/29/2018 Refill Internal Medicine at [address] [id number] Katie Ervin MD [facility] [address] [place] [address] Social History Tobacco Use Types Packs/Day Years [...] on filedocumented in this encounter Care Teams Equity Analyst Relationship Specialty Start Date End Date Nubia Botello APRN [facility] [address] [address] PCP - General 01/16/14 01/28/19 documented as of this encounter
--- OUTSIDE RECORDS SUMMARY | 2024-04-03 16:04 | XMS_ITS | Encounter Summary ---
Author Organization [facility] [place] [address] Care Team Providers Care Engraver Signature Name Role Phone Rosmery, Nubia Lopez APRN Primary Care Provider + Reason for Visit * Reason Onset Date Comments Medication Refill 11/05/2018 Encounter Details Date Type Department Care Team (Late st Contact Info) Description 11/05/2018 Refill Internal Medicine at [address] [address] Charla Pina RN Social History Tobacco Use Types Packs/Day [...] on filedocumented in this encounter Care Teams Engraver Signature Relationship Specialty Start Date End Date Nubia Botello APRN [facility] [address] [address] PCP - General 01/16/14 01/28/19 documented as of this encounter
--- OUTSIDE RECORDS SUMMARY | 2024-04-03 16:04 | XMS_ITS | Encounter Summary ---
Author Organization [facility] [place] [address] Care Team Providers Care Glass Engraver Name Role Phone LelandBrittany mendoza APRN Primary Care Provider [phone] Encounter Details Date Type Department Care Team (Late st Contact Info) Description 03/07/2021 Telephone Tobacco Treatment at [facility] [place] [address] Marcelle Arnold Social History Tobacco Use Types [...] * Telephone Encounter - Marcelle Arnold - 03/07/2021 10:16 AM EDT Ms. Diego reports she forgets to put the patch on and has not started the process of quitting yet. I recommended that she put a patch in her purse or in her glove compartment. I asked how she would like to proceed. She stated she would like a call back on Tuesday 03/13 at 9 a.m. documented in this encounter Plan of Treatment Not on file documented as of this encounter Visit Diagnoses Not on filedocumented in this encounter Care Teams Glass Engraver Relationship Specialty Start Date End Date Brittany Saini APRN [address] [place] [address] PCP - General Family Medicine 09/05/20 documented as of this encounter
--- OUTSIDE RECORDS SUMMARY | 2024-04-03 16:04 | XMS_ITS | Encounter Summary ---
Author Organization [facility] [place] [address] Care Team Providers Care Fire Pot Operator Name Role Phone Brittany Saini APRN Primary Care Provider [phone] Encounter Details Date Type Department Care Team (Latest Contact Info) Description 02/02/2021 11:30 AM EDT TH Visit (TeleHealth) [place] [id number] Anu Galicia MD [facility] [place] [address] Moderate persistent asthma without complication; ILD (interstitial lung disease); Tobacco abuse; KOSTA (obstructive sleep apnea); Adrenal myelolipoma Social History Tobacco Use Types Packs/Day Years [...] Progress Notes * Anu Galicia MD - 02/02/2021 11:30 AM EDT Images from the original note were not included. [facility] Section of Pulmonary and Critical Care Medicine Outpatient Consultation Date of Encounter: 02/02/2021 Referring Provider: No referring provider defined for this encounter. Reason for Evaluation: Asthma + abnormal CT chest History of Present Illness: Patient verbally consents to this telephone visit and understands that this visit may be billed, similar to a clinic office visit. Nancy is a 55 year old female who presents today for a follow up Telephone visit. After her last visit with me, I had continued her Advair and then a CT chest for further evaluation. Her CT chest had shown emphysematous changes along with groundglass opacities bilaterally which were concerning for possible DIP versus hypersensitivity pneumonitis. I had discussed smoking cessation given DIP was a possibility and referred her to the smoking cessation referral program. The patient states that she still has not heard from them. She continues to have the same symptoms and nothing has improved. Continues to feel winded when sheclimbs a single flight of stairs. Doing her dishes makes her fatigued and she has to take rest afterwards. She mentions that she feels ok doing her ADLs. She thinks that her SOB may be related to increased humidity. Continues to have a cough which she thinks may have worsened. Still has thick phlegm. No significant wheezing. Continues to smoke. Losing appetite due to weather.Thinks she may be losing weight but does not know how much as she does not have a scale. Denies any runny nose. Has to blow her nose every morning. No post nasal drip. Has acid reflux, takes tums as needed. Has known KOSTA and will be having a sleep study in Mar 2021 for re-evaluation. NO ER visits or hospitalizations since her last visit with me. Past Medical and Surgical History: Diabetes mellitus Hypertension Rectal bleeding (internal and external hemorrhoids Dyspnea on exertion iron deficiency anemia Vitamin D deficiency ? Asthma History of seizures Depression Obesity Urge incontinence PTSD Mood disorder Migraines Obstructive sleep apnea Gastroesophageal reflux disease Fibromyalgia Past Surgical History: Procedure Laterality Date ??? SECTION x3 ??? CHOLECYSTECTOMY ??? DENTAL SURGERY wisdom teeth, one pulled ??? HYSTERECTOMY ??? OVARY REMOVAL after hysterectomy ??? PRO COLONOSCOPY, BIOPSY N/A 03/26/2016 COLONOSCOPY FLEXIBLE, WITH BX performed by Mohinder Cid MD at [facility] ??? 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 Did not have any chemical exposures. Smoked 1/2 PPD x 38 years. Was a heavy smoker at one time, was doing 2 PPD when She started. Rare alcohol use. No illicit drug use. No vaping. No known mold exposure. No known asbestos exposure. Has 2 cats at home. Current Medications at Start of Encounter: Current Outpatient Medications Medication Sig Dispense Refill ??? cholecalciferol, Vitamin D3, 50 mcg (2,000 unit) Capsule Take 2,000 Units by mouth daily. ??? ferrous gluconate (Fergon) 324 mg (37.5 mg iron) Tablet Take 1 tablet by mouth daily. ??? Advair Diskus 250-50 mcg/dose Disk with Device Inhale 1 puff into the lungs 2 times daily. ??? metFORMIN (GLUCOPHAGE) 1,000 mg Tablet [...] ??? Penicillins Rash Review of Systems: CONSTITUTIONAL: No fevers, chills or night sweats. Fatigue present. Appetite and weight loss present. HEENT: No postnasal drip. PULM: No hemoptysis or pleuritic chest pain. CVS: No chest pains or palpitations. No orthopnea or leg swelling. GI: No abdominal pain, nausea or vomiting. MUSCULOSKELETAL: States she always has body aches due to fibromyalgia. SKIN: No new rash. NEURO: No headaches or dizziness. Physical Examination: There were no vitals taken for this visit. No physical exam was done as this was a telephone visit. The patient was talking in full sentences without any conversational dyspnea. Labs: I personally reviewed relevant laboratory results [...] Plan of Care: Ms. Diego is a 55 year old female who presents today for a follow up of her dyspnea: ASSESSMENT/PLAN 1. Dyspnea on exertion ?? The patient's only abnormality noted on PFTs was an isolated reduction in diffusion capacity. A subsequent CT chest demonstrated extensive mild groundglass opacities bilaterally with some scattered areas of lobular and subsegmental relative sparing. Areas of interlobular septal thickening was also noted without any significant coarse reticulation or honeycombing. These changes likely representan ILD and can also explain her decreased diffusion capacity. Differentials include a) hypersensitivity pneumonitis b) DIP c)RB-ILD. I do think that quitting smoking will be perkins here and I explained that to the patient. Given she still has some pulmonary symptoms, we discussed starting prednisone for a possibility of HSP. After a yin discussion, the patient wishes to try prednisone for a short duration. Will start prednisone course. Reviewed with patient the risks of prednisone which include but are not limited to mood changes, irritability, weight gain, insomnia, increased appetite, cataracts, diabetes, osteoporosis, adrenal insufficiency and avascular necrosis of the hip.She will start prednisone 30 mg and taper by 10 mg every 2 weeks to reach a dose of 10 mg. Will also start Mepron forPCP prophylaxis ( patients current meds had an interaction with Bactrim ). ?? Check MARCE/ANCA/HSP panel/imunoglobulin levels. 2. History of asthma ?? Will increase Advair dose to 500/50 1 puff BID. She has been educated to rinse her mouth after using Advair. 3. Tobacco abuse ?? Patient has been strongly encouraged to quit. Will message the tobacco cessation group so they can reach out to the patient. 4. Obstructive sleep apnea ?? Patient is scheduled for a sleep study in march 2021. 6. Right adrenal myolipoma ?? Slightly increased in size compared to prior Ct chest. Patient to discuss with her PCP about appropriate follow up. RECOMMENDATIONS 1. Increase Advair to 500/50 2. Stop Advair 250/50 3. Start prednisone 30 mg for 2 weeks followed by 20 mg for 2 weeks followed by 10 mg. 4. start Mepron for PCP prophylaxis 5. Check MARCE/ANCA/hypersensitivity pneumonitis panel/Immunoglobulin level 6. Refer back to smoking cessation program 7. RTC in 2 months I provided care to the patient today via telephone call. The total time associated with this visit was 30 minutes. I reviewed my impression and recommendations with the patient and answered all the questions to hersatisfaction. She understands the plan, and knows that she can contact us at any time should any new symptoms, concerns or questions arise. Anu Galicia MD [facility]monary and [place] [address] documented in this encounter Plan of Treatment Not on file documented as of this encounter Visit Diagnoses Diagnosis Moderate persistent asthma without complication Unspecified asthma ILD (interstitial lung disease) Postinflammatory pulmonary fibrosis Tobacco abuse Tobacco use disorder KOSTA (obstructive sleep apnea) Obstructive sleep apnea (adult) (pediatric) Adrenal myelolipoma documented in this encounter Care Teams Fire Pot Operator Relationship Specialty Start Date End Date Brittany Saini, CATALYST OPERATOR CHIEF [address] [place] [address] PCP - General Family Medicine 09/05/20 documented as of this encounter
--- OUTSIDE RECORDS SUMMARY | 2024-04-03 16:04 | XMS_ITS | Encounter Summary ---
Author Organization [facility] Address [facility] [place] [address] Care Team Providers Care Spectrograph Operator Name Role Phone Unavailable Primary Care Provider Unavailabl e Encounter Details Date Type Department Care Team (Latest Contact Info) Description 04/28/2020 2:01 PM EST - 04/28/2020 11:59 PM EST Hospital Encounter Laboratory [facility] [address] Discharge Disposition: Home Social History Tobacco Use [...] Sig Dispensed Refills Start Date End Date gabapentin (NEURONTIN) 400 mg CapsuleIndications:Fi bromyalgia Take 3 capsules by mouth 3 times daily. 270 capsule 11 04/20/2019 PROAIR HFA 90 mcg/actuation HFA Aerosol Inhaler INHALE 2 PUFFS BY MOUTH INTO THE LUNGS EVERY 4 HOURS NEEDED WHEEZING. USE WITH SPACER 8.5 g 1 12/16/2018 atorvastatin (LIPITOR) 20 mg Tablet TAKE 1 TABLET BY MOUTH EVERY DAY 90 tablet 3 09/29/2018 DULoxetine (CYMBALTA) 60 mg Capsule, Delayed Release(E.C.)Indicati ons:Depressive disorder Take 1 capsule by mouth daily. [...] 3 05/28/2017 lancets (FREESTYLE LANCETS) 28 gauge MiscIndications:diabe angelita mellitus 1 each by Other route 3 times daily. Indications: Diabetes Mellitus 300 each 3 12/10/2016 blood sugar diagnostic strips (FREESTYLE LITE STRIPS) StripIndications:diab etes mellitus 1 each by Other route 3 times daily. Use as instructed Indications: Diabetes Mellitus 300 each 3 12/10/2016 blood-glucose meter (FREESTYLE LITE METER) KitIndications:diabet es mellitus 1 blood glucose meter. Indications: Diabetes Mellitus 1 each 12/10/2016 acetaminophen (TYLENOL) 500 mg tablet Take 1,000 mg by mouth every 6 hours as needed. atorvastatin (LIPITOR) 20 mg Tablet TAKE 1 TABLET BY MOUTH EVERY DAY 90 tablet 09/29/2018 12/16/2020 metFORMIN (GLUCOPHAGE-XR) 500 mg Tablet Sustained Release 24 hr Take two tabs twice daily 360 tablet 3 07/21/2018 12/16/2020 methocarbamol (ROBAXIN) 750 mg Tablet Take 1 tablet by mouth 4 times daily. 60 tablet 3 06/03/2018 12/16/2020 doxycycline monohydrate (MONODOX) 100 mg Capsule Take 1 capsule by mouth 2 times daily. 28 capsule 02/07/2018 12/16/2020 clobetasol (TEMOVATE) 0.05 % Cream Apply topically 2 times daily. 30 g 02/04/2018 12/16/2020 documented as of this encounter Plan of Treatment Not on file documented as of this encounter Procedures Procedure Name Priority Date/Time Associated Diagnosis Comments COVID-19 PCR Routine 04/28/2020 9:37 AM EST documented in this encounter Results * COVID-19 PCR (04/28/2020 9:37 AM EST) SARS-CoV-2 RNA Not Detected Not Detected [facility] Comment: This result should be interpreted in combination with the clinical observations, patient history and epidemiological information in making a final diagnosis. For testing of asymptomatic individuals, assay performance characteristics and clinical utility have not been evaluated. Testing for SARS-CoV-2 (Severe acute respiratory syndrome coronavirus 2, formerly known as 2019 novel coronavirus or 2019-nCoV) to aid in the diagnosis of COVID-19 is performed using the [employer] RealTime SARS-CoV-2 Assay as authorized by the FDA Emergency Use Authorization (EUA). This EUA assay is intended for In-vitro Diagnostic (IVD) use with respiratory specimens such as nasopharyngeal swabs collected from individuals during the acute phase of infection. This assay is performed based on the instructions for use provided by [employer] and additional guidance provided by CDC and FDA. Testing is performed in the [facility] within the Department of Pathology and Laboratory Medicine at [facility], certified under the Clinical Laboratory Improvement Amendments of 1988 (CLIA), 42 U.S.C. 263a, to perform high complexity tests. Assay performance has been verified according to clinical laboratory regulatory requirements for use with specimens collected from individuals suspected of COVID-19. Test results are provided above. A result of ? Not Detected? indicates that the viral RNA target is not present above the limit of detection, but does not preclude SARS-CoV-2 infection. False negative results may occur if a specimen is improperly collected, transported or handled; if amplification inhibitors are present; or if inadequate numbers of viral particles are present in the specimen. When a diagnostic test is negative, the possibility of a false negative result should be considered in the context of a patient? s recent exposures and the presence of clinical signs and symptoms consistent with COVID-19. A result of ? Detected? indicates that RNA from SARS-CoV-2 was detected and the patient is infected. As required or requested by public health authorities, positive specimens may be sent for additional testing. Positive and negative predictive values for this test are highly dependent on disease prevalence. A result of ? Invalid? indicates that neither the viral RNA targets nor the internal control target was detected. An invalid result suggests the presence of inhibitors. Recollection and re-testing is recommended in the case of an invalid result. CDC COVID-19 criteria for testing on human specimens and clinical management guidance information are available at the CDC Coronavirus Disease 2019 (COVID-19) webpage under ? Information for Healthcare Professionals? (https://www.cdc.gov/coronavirus/2019-ncov/hcp/index.html) Additional information about this and other EUA tests can be found in provider and patient fact sheets at the following FDA website: https://www.fda.gov/medical-devices/gbffuzbjzzn-jlsoaza-8460-wrpws-00-vnuepgvkp- use-a nghrvrsiijhmd-qqctcqb-wbfzsuw/dwekh-jzjeoaxifem-mddn SARS-CoV-2 RNA Source Nasal [facility] Specimen from nose (specimen) Other / Unknown 04/28/2020 9:37 AM EST 04/29/2020 1:10 AM EST Narrative Resulting Agency Comment Spec In Lab Ender Hernandez MD MOLECULAR ORDERABLES [facility] [place] [address] documented in this encounter Visit Diagnoses Not on filedocumented in this encounter
--- OUTSIDE RECORDS SUMMARY | 2024-04-03 16:04 | XMS_ITS | Encounter Summary ---
Author Organization [facility] [place] [address] Care Team Providers Care Staffing Recruiter Name Role Phone Nubia Botello APRN Primary Care Provider + Reason for Visit * Reason Onset Date Comments Medication Refill 07/21/2018 Encounter Details Date Type Department Care Team (Late st Contact Info) Description 07/21/2018 Refill Internal Medicine at [address] [address] Alyssa Boston Social History Tobacco Use Types Packs/Day Years [...] encounter Miscellaneous Notes * Telephone Encounter - Alyssa Boston - 07/21/2018 9:08 AM EST Please remind every patient that prescription requests can take up to 72 business hours to process Medication Refill Request: Name of Medication: Metformin Dose as Prescribed: 2,000 mg daily Prescriber: Nubia Botello APRN Pharmacy Name & Location [place], [place] *pt needs new script sent to pharmacy please. She is taking her last dose tonight on 07/21/18.?? documented in this encounter Plan of Treatment Not on file documented as of this encounter Visit Diagnoses Not on filedocumented in this encounter Care Teams Staffing Recruiter Relationship Specialty Start Date End Date Nubia Botello APRN [facility] [place] [address] PCP - General 01/16/14 01/28/19 documented as of this encounter
--- OUTSIDE RECORDS SUMMARY | 2024-04-03 16:04 | XMS_ITS | Encounter Summary ---
Author Organization [facility] [place] [address] Care Team Providers Care Healthcare Network Pricing Consultant Name Role Phone Parveen Brittany VEGA Primary Care Provider [phone] Encounter Details Date Type Department Care Team (Late st Contact Info) Description 03/07/2021 Telephone [place] [address] Marcelle Arnold Social History Tobacco Use Types [...] on filedocumented in this encounter Care Teams Healthcare Network Pricing Consultant Relationship Specialty Start Date End Date Brittany Saini APRN [address] [place] [address] PCP - General Family Medicine 09/05/20 documented as of this encounter
--- OUTSIDE RECORDS SUMMARY | 2024-04-03 16:04 | XMS_ITS | Encounter Summary ---
[facility] [place] [address] Care Team Providers Care Cost Control Specialist Name Role Phone Brittany Saini APRN Primary Care Provider [phone] Encounter Details Date Type Department Care Team (Late st Contact Info) Description 01/09/2021 Telephone [place] [id number] Tressa Singh Social History Tobacco Use Types Packs/Day Years [...] on filedocumented in this encounter Care Teams Cost Control Specialist Relationship Specialty Start Date End Date Brittany Saini APRN [address] [place] [address] PCP - General Family Medicine 09/05/20 documented as of this encounter
--- OUTSIDE RECORDS SUMMARY | 2024-04-03 16:04 | XMS_ITS | Encounter Summary ---
Author Organization [facility] [place] [address] Care Team Providers Care Power And Recovery Supervisor Name Role Phone Nubia Botello APRN Primary Care Provider + Encounter Details Date Type Department Care Team (Late st Contact Info) Description 01/24/2018 Unscheduled Encounter Internal Medicine at [address] [id number] Nubia Botello APRN [facility] [place] [address] Rash Social History Tobacco Use Types Packs/Day Years [...] as of this encounter Progress Notes * Nubia Botello APRN - 01/24/2018 1:56 PM EDT Images from the original note were not included. PCP: Nubia Botello APRN No chief complaint on file. SUBJECTIVE: Nancy Diego is a 52 y.o. female who presents for concern for rash. She is here today with her daughter for her daughter's appointment, but would like me to look at a rash on the back of her legs that has been ongoing for weeks. She has tried otc creams and it has not helped. She reports that it isvery itchy. Review of Systems Constitutional: Negative for chills and fever. Skin: Positive for rash. Allergies Allergen Reactions ??? Latex Skin cracks and bleeds ??? Penicillins Rash Current Outpatient Prescriptions Medication Sig Dispense Refill ??? methocarbamol (ROBAXIN) 750 mg Tablet Take 1 tablet by mouth 4 times daily. 60 tablet 0 ??? gabapentin (NEURONTIN) 300 mg Capsule [...] ??? Migraines G43.909 ??? Elevated blood pressure [id number] ??? Body mass index (BMI) of 39.0-39.9 in adult Z68.39 ??? Low back pain M54.5 ??? Type 2 diabetes mellitus without complication, without long-term current use of insulin E11.9 ??? Fatigue R53.83 ??? Fibromyalgia M79.7 ??? Pain in right shoulder M25.511 OBJECTIVE: There were no vitals filed for this visit. PHYSICAL EXAM: Physical Exam Constitutional: She is oriented to person, place, and time. She appears well- developed and well-nourished. No distress. Pulmonary/Chest: Effort normal. Neurological: She is alert and oriented to person, place, and time. Skin: Psychiatric: She is slowed and withdrawn. She exhibits a depressed mood. ASSESSMENT & PLAN: Diagnoses and all orders for this visit: Rash - suspect tinea corporis vs. Atopic dermatitis - clotrimazole (LOTRIMIN) 1 % Cream; Apply topically 2 times daily. - clobetasol (TEMOVATE) 0.05 % Cream; Apply topically 2 times daily. - rash, will treat with steroid and antifungal cream. documented in this encounter Plan of Treatment Not on file documented as of this encounter Visit Diagnoses Diagnosis Rash Rash and other nonspecific skin eruption documented in this encounter Care Teams Power And Recovery Supervisor Relationship Specialty Start Date End Date Nubia Botello APRN [facility] [address] [address] PCP - General 01/16/14 01/28/19 documented as of this encounter
--- OUTSIDE RECORDS SUMMARY | 2024-04-03 16:04 | XMS_ITS | Encounter Summary ---
Author Organization [facility] [place] [address] Care Team Providers Care Coconut Candy Maker Name Role Phone Rosmery, Nuiba Lopez APRN Primary Care Provider + Reason for Visit * Reason Onset Date Comments Medication Refill 02/28/2018 Encounter Details Date Type Department Care Team (Late st Contact Info) Description 02/28/2018 Refill Internal Medicine at [address] [address] Chhaya Cee, JAYSON Social History Tobacco Use [...] on filedocumented in this encounter Care Teams Coconut Candy Maker Relationship Specialty Start Date End Date Nubia Botello APRN [facility] [place] [address] PCP - General 01/16/14 01/28/19 documented as of this encounter
--- OUTSIDE RECORDS SUMMARY | 2024-04-03 16:04 | XMS_ITS | Encounter Summary ---
Author Organization [facility] [place] [address] Care Team Providers Care Wound Care Nurse Name Role Phone Nubia Botello APRN Primary Care Provider + Encounter Details Date Type Department Care Team (Late st Contact Info) Description 10/29/2017 Telephone Internal Medicine at [address] [address] Viky Robbins Social History Tobacco [...] encounter Miscellaneous Notes * Telephone Encounter - Consuelo Delaney RN - 10/30/2017 10:40 AM EDT Patient wanted to apologize for being upset yesterday about her Pain clinic appt, and to inquire about her gabapentin refill. Informed her refill has been done. * Telephone Encounter - Viky Robbins - 10/29/2017 4:09 PM EDT Nancy would like Dorie to return her call. documented in this encounter Plan of Treatment Not on file documented as of this encounter Visit Diagnoses Not on filedocumented in this encounter Care Teams Wound Care Nurse Relationship Specialty Start Date End Date Nubia Botello APRN [facility] [place] [address] PCP - General 01/16/14 01/28/19 documented as of this encounter
--- OUTSIDE RECORDS SUMMARY | 2024-04-03 16:04 | XMS_ITS | Encounter Summary ---
Author Organization [facility] [place] [address] Care Team Providers Care Homoeopath Name Role Phone Nubia Botello APRN Primary Care Provider + Encounter Details Date Type Department Care Team (Late st Contact Info) Description 10/04/2018 Telephone Internal Medicine at [address] [address] Viky Robbins Social History Tobacco Use Types [...] encounter Miscellaneous Notes * Telephone Encounter - Viky Robbins - 10/04/2018 1:49 PM EDT Called patient LVM to help schedule Diabetic follow up with Rosmery documented in this encounter Plan of Treatment Not on file documented as of this encounter Visit Diagnoses Not on filedocumented in this encounter Care Teams Homoeopath Relationship Specialty Start Date End Date Nubia Botello APRN [facility] [place] [address] PCP - General 01/16/14 01/28/19 documented as of this encounter
--- OUTSIDE RECORDS SUMMARY | 2024-04-03 16:04 | XMS_ITS | Encounter Summary ---
Author Organization [facility] [place] [address] Care Team Providers Care Conche Operator Name Role Phone Brittany Saini APRN Primary Care Provider [phone] Reason for Referral * Diagnostic Test (Routine) - Closed Specialty Diagnoses / Procedures Referred By Dennis daniels Referred To Contact Radiology Diagnoses Dyspnea, unspecified type Procedures CT Chest wo Contrast (Generic) Anu Galicia MD [facility] [place] [address] [facility] [place] [address] Referral ID Status Reason Start Date Expiration Date V isits Requested Visits Authorized [id number] Closed Specialty Service Requested 01/09/2021 06/23/2021 1 1 Reason for Visit * Consultation (Routine) - Specialty Diagnoses / Procedures Referred By Dennis daniels Referred To Contact Pulmonology Diagnoses Other forms of dyspnea Brittany Saini APRN [address] [place] [address] [place] [address] [facility] [address] [place] [address] Referral ID Status Reason Start Date Expiration Date V isits Requested Visits Authorized [id number] Consult, [facility] PCP Updated and/or Approved 08/29/2020 02/25/2021 6 6 Encounter Details Date Type Department Care Team (Late st Contact Info) Description 12/16/2020 10:00 AM EDT [place] [address] Anu Galicia MD [facility] [place] [address] Dyspnea, unspecified type; Moderate persistent asthma without complication; Oral thrush; Abnormal diffusion capacity determined by pulmonary function test; Tobacco abuse Social History Tobacco Use Types Packs/Day Years [...] Mass Index 40.02 12/16/2020 9:45 AM EDT documented in this encounter Progress Notes * Anu Galicia MD - 12/16/2020 10:00 AM EDT Images from the original note were not included. [facility] Section of Pulmonary and Critical Care Medicine Outpatient Consultation Date of Encounter: 12/16/2020 Referring Provider: [place] [address] [address] Reason for Evaluation: Brittany Saini APRN referred Ms. Nancy Diego to me to evaluate and manage Dyspnea. I independently interviewed and examined the patient in the office and have reviewed available records. History of Present Illness: Nancy is a 55 year old female who presents today for an initial clinic visit. States that she has has asthma for about 6-7 years and has been on Albuterol with good control. In the past 6 months, she has noticed significant shortness of breath. She was easily able to climb a single flight of stairs about a year ago but slowly she has noticed a decline in her functional capacity. Climbing a single flight of stairs makes her significantly winded and by the end she needs to use her rescue inhaler. 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 She has also has a cough with whitish thick phlegm which started about a year ago. No hemoptysis. No wheezing. No significant environmental changes with her symptoms. She did not move to a new house or apartment. No sick contacts. No recent travels. No mold exposure. No new carpets at home. No new pets. States that when her asthma was bothersome in the past, she used to wheeze but feels that her current symptoms are Different. Thinks that she has lost weight since last year when her symptoms started. No nasal congestion or post nasal drip. Has acid reflux, takes tums once - twice a day depending on the type of food she eats. Has had chest pains For the past 15 years. Also endorses chronic leg swelling. Has had an EKG in the past which was noted to be normal per patient report. Has body aches due to fibromyalgia. No dysphagia. No excessive dryness of the eyes or mouth. No Malar rash noted. No small joint pains. No myalgias or significant muscle aches. No thickening of skin. No Raynauds phenomena noted. Has KOSTA, does not use CPAP. States she does not want to use the mask. She feels tired during the day and snores at night. Also takes day time naps and passes out in her recliner during the day. Never passed out while driving. Has been tested for A1AT deficiency which she states was normal. She has never had a CXR but had PFts last year. She was started on Advair last year for her symptoms and feels that it has helped but has not resolved the symptoms. She thinks it eases her symptoms to a tolerable level. Past Medical and Surgical History: Diabetes mellitus [...] BX performed by Mohinder Cid MD at [facility] ??? PRO COLONOSCOPY, DIAGNOSTIC N/A 02/05/2017 COLONOSCOPY, DIAGNOSTIC performed by Flyod Lopez MD at [facility] Family History: Sister from fungal infection [...] the past. Before that worked in [employer] for 10 years, worked in [employer]. Did not have any chemical exposures. Smoked [...] mg by mouth 2 times daily. ??? gabapentin (NEURONTIN) 400 mg Capsule Take [...] by mouth daily. 90 tablet 3 ??? lisinopril (PRINIVIL;ZESTRIL) 40 [...] Indications: Diabetes Mellitus 1 each 0 ??? cyclobenzaprine (FLEXERIL) 10 mg Tablet TAKE 1 TABLET BY MOUTH THREE TIMES DAILY NEEDED FOR MUSCLE SPASMS (Patient not taking: Reported on 12/16/2020) 90 tablet 3 ??? acetaminophen (TYLENOL) 500 mg tablet Take 1,000 mg by mouth every 6 hours as needed. No current facility-administered medications for this visit. Adverse Drug Reactions: Allergies Allergen Reactions ??? Latex Skin cracks and bleeds ??? Penicillins Rash Review of Systems: CONSTITUTIONAL: No appetite or weight loss. No fevers, chills or night sweats. Fatigue present. HEENT: No nasal congestion or postnasal drip. PULM: Cough present. No hemoptysis or pleuritic chest pain. CVS: Chronic leg swelling present. No palpitations or orthopnea. GI: No abdominal pain, nausea or vomiting. : No dysuria. MUSCULOSKELETAL: Myalgias present due to fibromyalgia. SKIN: No new rash. NEURO: No headaches or dizziness. Physical Examination: BP 114/53 Pulse 85 Temp 35.8 ??C (96.4 ??F) (Temporal) Resp 18 Ht 159.5 cm (5' 2.8) Wt 101.8 kg (224 lb 6.9 oz) SpO2 93% BMI 40.02 kg/m?? GEN: Patient is sitting comfortably, no accessory muscle use. No conversational dyspnea. HEENT: Pupils are equal and reactive to light, anicteric sclera. NECK: Supple, no elevation in JVD. No cervical or supraclavicular lymphadenopathy. OROPHARYNX: Mallampati score 3, oropharyngeal thrush noted. Moist oral mucosa. PULM: Clear breath sounds bilaterally. No wheezing. CVS: S1-S2 normal. No murmurs. Regular rate and rhythm. ABDO: Soft, nontender, bowel sounds present. EXT: Warm, well-perfused lower extremities bilaterally. No lower extremity edema noted. No clubbingor cyanosis. NEURO: Alert, awake, oriented x3. No focal deficits. PSYCH: Appropriate mood and affect. Labs: I personally reviewed relevant laboratory results [...] year old female who presents today for evaluation of her dyspnea : ASSESSMENT/PLAN 1. Dyspnea on exertion ?? I reviewed the patient's PFTs today with her. The PFTs did not demonstrate any significant obstructive defect. However, she does have moderate abnormalities in gas exchange. There was some decrease in her oxygen saturation on ambulation, however, not significant enough for oxygen supplementation. Given the isolated abnormality in diffusion capacity, I discussed with the patient about the various differentials which can include a) interstitial lung disease b) pulmonary hypertension c) early emphysema (patient does have a smoking history). Anemia could have been a possibility, though, the patient had a recent CBC in February 2020 when her hemoglobin was normal. I did get a chest x-ray forinitial evaluation which did not demonstrate any significant interstitial changes. However, the chest x-ray may not be the most sensitive tool to look for an ILD. Hence, I will proceed with a CT chest for further evaluation of her dyspnea. If her CT chest remains normal, the next step would be to get an echocardiogram to rule out pulmonary hypertension. If all her tests come back normal, the possibilities causing her dyspnea could be uncontrolled asthma and obesity. At that time, I will uptitrate her asthma medications to see if that improves her symptoms. At this time, asthma causing her dyspnea is not convincing as it should not result in abnormalities in diffusion capacity. 2. History of asthma ?? The patient is currently on Advair which I will continue. If her testing comes back negative, I will increase her Advair dose to 500-50. 3. Tobacco abuse ?? The patient has been counseled to quit smoking. Does not want any pharmacological help at this time. 4. Oral thrush ?? Nystatin has been prescribed today for the patient. She was also noted to have a small bump on her tongue for which she has been recommended to see her PCP. The patient states she will discuss with her PCP about that. 5. Obstructive sleep apnea ?? The patient does not wish to use CPAP at this time RECOMMENDATIONS 1. Continue Advair 250/[address] chest 3. Start nystatin swish and swallow 4. RTC in 6 weeks I reviewed my impression and recommendations with the patient and answered all the questions to hersatisfaction. She understands the plan, and knows that she can contact us at any time should any new symptoms, concerns or questions arise. Anu Galicia MD [employer] InspectorServer Service Assistant Pulmonary and [place] [address] documented in this encounter Plan of Treatment Not on file documented as of this encounter Results * CT Chest wo Contrast (Generic) (01/09/2021 10:36 AM EDT) Anatomical Region Laterality Modality Chest Computed Tomogra phy 01/09/2021 10:5 2 AM EDT Impressions 01/09/2021 1:30 PM EDT 1. ??Mild emphysematous changes by lung apices.. 2. ??Extensive groundglass opacity throughout both lungs, with mild upper lung predominance, and scattered lobular and subsegmental air trapping at the bases. Question hypersensitivity pneumonitis or, if the patient is a smoker, desquamative interstitial pneumonitis. 3. ??Mildly enlarged mediastinal lymph nodes may be reactive. 4. ??Slightly increased size of known right adrenal myelolipoma. 5. ??Hepatic steatosis. Thank you for letting us participate in the care of this patient. ??If you are a health care provider and have any questions regarding this report, please contact the number below. ??For patients who have questions please contact the health summer child caregiver that requested your imaging first. ? Electronically signed by: Klaudia Chaudhary MD, [facility] ([phone]), at 01/09/2021 1:30 PM Narrative 01/09/2021 1:30 PM EDT EXAMINATION: CT CHEST WO CONTRAST (GENERIC) CLINICAL HISTORY: Dyspnea on exertion Patient has significant abnormalities in diffusion capacity on PFTs. ??No clear etiology of dyspnea identified. ??Rule out interstitial lung disease or emphysema. TECHNIQUE: 3.0 mm thick axial contiguous sections were obtained through the chest via helical acquisition without intravenous contrast administration. Thin-section reconstructions as well as coronal and sagittal reformatted images were generated. 1.0 mm thick sections at 10 mm intervals were obtained using axial mode acquisition and low radiation dose technique, first with the patient supine during expiration, then prone during inspiration. COMPARISON: Prior chest CT. Upper abdomen compared to 03/14/[address] FINDINGS: Pulmonary parenchyma: Extensive mild groundglass opacity throughout both lungs, slightly greater in the upper lungs. Some scattered areas of lobular and subsegmental relative sparing, predominantly at the bases. Scattered mild interlobular septal thickening, but no significant intralobular septal thickening. No coarse reticulation or cystic change. Mild emphysematous changes by the lung apices. Scattered mild lobular and subsegmental air trapping at the lung bases. Airways: Normal contour and caliber of the airways, with no airways wall thickening or endobronchial opacities seen. Pleura: No pleural effusion. Lymph nodes: Mediastinal lymph nodes are mildly enlarged, such as superior mediastinal, AP window, and lower right paratracheal lymph nodes measuring 12 mm, 10 mm, and 11 mm in short axis, on series 4 images 20, 32, and 35, respectively. Hilar lymph nodes poorly assessable in the absence of intravenous contrast. Heart, pericardium, and great vessels: Mild atherosclerotic calcification of aortic arch, descending thoracic aorta, and coronary arteries. Other mediastinal structures: No significant findings. Lower neck: No significant findings. Upper abdomen: Slightly increased right adrenal myolipoma, previously 3.7 cm, presently 3.9 cm. Mildly reduced attenuation of liver parenchyma, 34 Hounsfield units, consistent with some fatty change. Body wall soft tissues: No significant findings. Skeletal structures: Mild degenerative changes of the thoracic spine. Procedure Note Klaudia Chaudhary MD - 01/09/2021 EXAMINATION: CT CHEST WO CONTRAST (GENERIC) CLINICAL HISTORY: Dyspnea on exertion Patient has significant abnormalities in diffusion capacity on PFTs. Noclear etiology of dyspnea identified. Rule out interstitial lung disease or emphysema. TECHNIQUE: 3.0 mm thick axial contiguous sections were obtained throughthe chest via helical acquisition without intravenous contrastadministration. Thin-section reconstructions as well as coronal and sagittal reformattedimages were generated. 1.0 mm thick sections at 10 mm intervals were obtained using axial mode acquisition and low radiation dose technique, first with the patientsupine during expiration, then prone during inspiration. COMPARISON: Prior chest CT. Upper abdomen compared to 03/14/2016 abdominalCT. FINDINGS: Pulmonary parenchyma: Extensive mild groundglass opacity throughout bothlungs, slightly greater in the upper lungs. Some scattered areas of lobular and subsegmental relative sparing, predominantly at the bases. Scatteredmild interlobular septal thickening, but no significant intralobular septal thickening. No coarse reticulation or cystic change. Mild emphysematouschanges by the lung apices. Scattered mild lobular and subsegmental air trappingat the lung bases. Airways: Normal contour and caliber of the airways, with no airways wall thickening or endobronchial opacities seen. Pleura: No pleural effusion. Lymph nodes: Mediastinal lymph nodes are mildly enlarged, such assuperior mediastinal, AP window, and lower right paratracheal lymph nodes [id number] mm, 10 mm, and 11 mm in short axis, on series 4 images 20, 32, and 35, respectively. Hilar lymph nodes poorly assessable in the absence ofintravenous contrast. Heart, pericardium, and great vessels: Mild atherosclerotic calcificationof aortic arch, descending thoracic aorta, and coronary arteries. Other mediastinal structures: No significant findings. Lower neck: No significant findings. Upper abdomen: Slightly increased right adrenal myolipoma, previously 3.7cm, presently 3.9 cm. Mildly reduced attenuation of liver parenchyma, 34Hounsfield units, consistent with some fatty change. Body wall soft tissues: No significant findings. Skeletal structures: Mild degenerative changes of the thoracic spine. IMPRESSION 1. Mild emphysematous changes by lung apices.. 2. Extensive groundglass opacity throughout both lungs, with mild upperlung predominance, and scattered lobular and subsegmental air trapping at thebases. Question hypersensitivity pneumonitis or, if the patient is a smoker, desquamative interstitial pneumonitis. 3. Mildly enlarged mediastinal lymph nodes may be reactive. 4. Slightly increased size of known right adrenal myelolipoma. 5. Hepatic steatosis. Thank you for letting us participate in the care of this patient. If youare a health care provider and have any questions regarding this report,please contact the number below. For patients who have questions please contactthe health summer child caregiver that requested your imaging first. Electronically signed by: Klaudia Chaudhary MD, [facility]([phone]), at 01/09/2021 1:30 PM Anu Galicia MD IMG CT ORDERABLES * XR Chest PA & Lateral (Generic) (12/16/2020 11:23 AM EDT) Anatomical Region Laterality Modality Chest N/A Digital Radiogra phy Impressions 12/16/2020 11:46 AM EDT No radiographic evidence of acute cardiopulmonary disease. Thank you for letting us participate in the care of this patient. ??If you are a health care provider and have any questions regarding this report, please contact the number below. ??For patients who have questions please contact the health summer child caregiver that requested your imaging first. ? Electronically signed by: Fredo Hobson MD, [facility] ([phone]), at 12/16/2020 11:46 AM Narrative 12/16/2020 11:46 AM EDT EXAMINATION: XR CHEST PA AND LATERAL (GENERIC) CLINICAL HISTORY: dyspnea TECHNIQUE: PA and lateral views of the chest COMPARISON: None FINDINGS: Lungs are normally inflated. No airspace consolidation or focal lesion. No pleural effusion or pneumothorax. Heart size normal. Pulmonary vasculature within normal limits. Superior mediastinal contours are normal. Bones and extrathoracic soft tissues unremarkable. Procedure Note Fredo Hobson MD - 12/16/2020 EXAMINATION: XR CHEST PA AND LATERAL (GENERIC) CLINICAL HISTORY: dyspnea TECHNIQUE: PA and lateral views of the chest COMPARISON: None FINDINGS: Lungs are normally inflated. No airspace consolidation or focal lesion.No pleural effusion or pneumothorax. Heart size normal. Pulmonary vasculature within normal limits. Superior mediastinal contours are normal. Bones and extrathoracic soft tissues unremarkable. IMPRESSION No radiographic evidence of acute cardiopulmonary disease. Thank you for letting us participate in the care of this patient. If youare a health care provider and have any questions regarding this report,please contact the number below. For patients who have questions please contactthe health summer child caregiver that requested your imaging first. Electronically signed by: Fredo Hobson MD, [facility]([phone]), at 12/16/2020 11:46 AM Anu Galicia MD IMG DX ORDERABLES documented in this encounter Visit Diagnoses Diagnosis Dyspnea, unspecified type Moderate persistent asthma without complication Unspecified asthma Oral thrush Candidiasis of mouth Abnormal diffusion capacity determined by pulmonary function test Tobacco abuse Tobacco use disorder Dyspnea, unspecified type Dyspnea, unspecified type documented in this encounter Care Teams Conche Operator Relationship Specialty Start Date End Date Brittany Saini, G[place] [address] [facility] [place] [address] PCP - General Family Medicine 09/05/20 documented as of this encounter
--- OUTSIDE RECORDS SUMMARY | 2024-04-03 16:04 | XMS_ITS | Encounter Summary ---
Author Organization [facility] Address [facility] [place] [address] Care Team Providers Care Cdl Instructor Name Role Phone Brittany Saini APRN Primary Care Provider [phone] Reason for Referral * Diagnostic Test (Routine) - Closed Specialty Diagnoses / Procedures Referred By Contac t Referred To Contact Radiology Diagnoses ILD (interstitial lung disease) Procedures CT Chest wo Contrast (Generic) Anu Galicia MD [facility] [place] [address] [facility] [place] [address] Referral ID Status Reason Start Date Expiration Date V isits Requested Visits Authorized [id number] Closed Specialty Service Requested 07/20/2021 01/17/2023 1 1 Encounter Details Date Type Department Care Team (Latest Contact Info) Description 07/20/2021 3:30 PM EST TH Visit (TeleHealth) [place] [address] Anu Galicia MD [facility] [place] [address] Moderate persistent asthma without complication; ILD (interstitial lung disease); Dyspnea on exertion; KOSTA (obstructive sleep apnea); Adrenal myelolipoma; Tobacco abuse; COVID-19 Social History Tobacco Use Types Packs/Day [...] Progress Notes * Anu Galicia MD - 07/20/2021 3:30 PM EST Images from the original note were not included. [facility] Section of Pulmonary and Critical Care Medicine Outpatient Consultation Date of Encounter: 07/20/2021 Referring Provider: [place] [address] [place] [address] Reason for Evaluation: Asthma + abnormal CT chest History of Present Illness: Patient verbally consents to this telephone visit and understands that this visit may be billed, similar to a clinic office visit. Nancy is a 55 year old female who presents today for a follow up Telephone visit (patient preference). After her last visit with me, I had started her on prednisone for a possibility of RB-ILD versus DIP versus hypersensitivity pneumonitis. I also strongly recommended that the patient quit smoking as that would be the most important factor in helping RB-ILD. I had also increased her Advair dosing [id number]. I had also ordered blood work for her which demonstrated a normal hypersensitivity pneumonitis panel, minimally positive MARCE titer of 1: 80 which is nonspecific, negative ANCA. The patient has since tapered her prednisone down to 10 mg daily. She states that she was having SOB on prednisone 10 mg and was doing much better on prednisone 20 mg daily. She had less SOB and had more energy on the higher doses. She does think the higher dose ofAdvair helps her breathing. She states that she can tell the difference when she uses the lower dose of Advair sometimes. Feels that the shortness of breath can come on even when she is resting. She can take a shower without feeling winded if she paces herself. She was coughing up some phlegm which was nasty . No hemoptysis. Things eventually worsened when she developed a worsening cough and phlegm production which was significant. She describes having flu like symptoms. She tested positive for COVID on 06/29/21. States that she was down for 2 weeks. She also describes having worsening SOB. She has also had worsening fatigue which she says was present even when she was not diagnosed with COVID. Has been wheezing today and had to use her rescue inhaler. Was not wheezing much prior to the diagnosis of COVID. Still smoking and has been seen by the tobacco cessation clinic. States that she has been stressed and that is the reason that she is smoking. Losing weight and appetite. No ER visits or hospitalizations since her last [...] BX performed by Mohinder Cid MD at [facility] ??? 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 Did not have any chemical exposures. Smoked 1/2 PPD x 38 years. Was a heavy smoker at one time, was doing 2 PPD when She started. Rare alcohol use. No illicit drug use. No vaping. No known mold exposure. No known asbestos exposure. Has 2 cats at home. Current Medications at Start of Encounter: Current Outpatient Medications Medication Sig Dispense Refill ??? fluticasone propion-salmeteroL (Advair Diskus) 500-50 mcg/dose Disk with Device Inhale 1 puff into the lungs every 12 hours. 1 each 12 ??? predniSONE (Deltasone) 10 mg Tablet Take 30 mg ( 3 tablets ) daily for 2 weeks followed by 20 mg ( 2 tabs ) daily for 2 weeks and then decrease to 10 mg daily. 90 tablet 2 ??? atovaquone (Mepron) 750 mg/5 mL Suspension Take 10 mLs by mouth daily. 210 mL 2 ??? cholecalciferol, Vitamin D3, 50 mcg (2,000 [...] Penicillins Rash Review of Systems: CONSTITUTIONAL: No fevers. Still losing weight and appetite. Fatigue present. HEENT: No nasal congestion or post nasal drip. PULM: No hemoptysis or pleuritic chest pain. CVS: No chest pains or palpitations. No orthopnea. Has had leg swelling which is chronic ( does notlike to take diuretics ). GI: Had some vomiting last week which has resolved., MUSCULOSKELETAL: Myalgias present. SKIN: No new rash. NEURO: No headaches [...] chest/ILD Recent history of COVID-19 infection ?? The patient was trialed on prednisone which seemed to have improved her symptoms when she was on20 mg. She continues to be on 10 mg of prednisone with some symptoms of shortness of breath. Her symptoms have definitely worsened since her diagnosis of Covid a few weeks ago. Unfortunately, it is difficult to assess if her underlying interstitial lung disease is stable or worsened due to Covid which is now being commonly seen. I have recommended getting a CT chest for evaluation of that. Unfortunately, I have been worried about RB-ILD versus DIP in her given her smoking history. I have educated her about quitting smoking given that is the first best step for improving the changes noted on the CT chest if this indeed is a smoker related ILD. The patient verbalizes understanding and states that she will try to quit again. I will continue her prednisone 10 mg daily for now and not increasethe dose any further given the etiology of her underlying ILD is unclear and with her ongoing smoking, I do not think glucocorticoids are going to help. 2. History of asthma ?? I will continue her Advair 500/50, 1 puff twice daily. However, given her ongoing symptoms of shortness of breath, I will add Spiriva Respimat to her regimen. I have educated her about the side effects which include but are not limited to urinary retention, glaucoma-like symptoms. She will call me if any of those arise and stop the inhaler. 3. Tobacco abuse ?? Patient has been strongly encouraged to quit. I will message Marcelle to get in touch with the patient again as she is interested in quitting. ( OR messaged Marcelle Arnold ) 4. Obstructive sleep apnea ?? She was supposed to have a sleep study but she did not keep the visit and has not rescheduled yet. I have recommended re-scheduling the testing. She will call the sleep center for that. 6. Right adrenal myolipoma ?? The patient states that she does not remember if she has discussed this with her PCP which she was supposed to do after her last visit with me. I will be sending my note to her PCP and call their office to let them know. RECOMMENDATIONS 1. Continue Advair to 500/50, 1 puff twice daily 2. Start Spiriva respimat 1.25 mcg, 2 puffs daily 3. Continue prednisone 10 mg daily 4. Patient to call sleep center to schedule her sleep study 5. Schedule CT chest without contrast 6. RTC in 3 months I provided [...] concerns or questions arise. Anu Galicia MD [employer] Drawing Runner Pulmonary and Critical [place] [address] documented in this encounter Plan of Treatment [...] who have questions please contact the health emergency care tech that requested your imaging first. ? Electronically signed by: Fatimah Henson MD, [facility] ([phone]), at 08/16/2021 2:24 PM Narrative 08/16/2021 2:24 PM EST EXAMINATION: CT [...] patients who have questions please contactthe health emergency care tech that requested your imaging first. Electronically signed by: Fatimah Henson MD, [facility] ([phone]), at 08/16/2021 2:24 PM Anu Grayson LEROY IMG CT ORDERABLES documented in this encounter Visit Diagnoses Diagnosis Moderate persistent asthma without complication Unspecified asthma ILD (interstitial lung disease) Postinflammatory pulmonary fibrosis Dyspnea on exertion Other dyspnea and respiratory abnormality KOSTA (obstructive sleep apnea) Obstructive sleep apnea (adult) (pediatric) Adrenal myelolipoma Tobacco abuse Tobacco use disorder COVID-19 ILD (interstitial lung disease) Postinflammatory pulmonary fibrosis documented in this encounter Care Teams Cdl Instructor Relationship Specialty Start Date End Date Brittany Saini, GARY [address] [place] [address] PCP - General Family Medicine 09/05/20 documented as of this encounter
--- OUTSIDE RECORDS SUMMARY | 2024-04-03 16:04 | XMS_ITS | Encounter Summary ---
Author Organization [facility] [place] [address] Care Team Providers Care Graffiti Cleaner Name Role Phone LelandBrittany mendoza GARY Primary Care Provider [phone] Reason for Visit * Reason Comments Medication Refill Encounter Details Date Type Department Care Team (Late st Contact Info) Description 12/16/2018 Refill Internal Medicine at [address] [address] Katie Ervin MD [facility] [place] [address] Social History Tobacco Use Types Packs/Day Years [...] on filedocumented in this encounter Care Teams Graffiti Cleaner Relationship Specialty Start Date End Date Brittany Saini APRN [address] [place] [address] PCP - General Family Medicine 09/05/20 documented as of this encounter
--- OUTSIDE RECORDS SUMMARY | 2024-04-03 16:04 | XMS_ITS | Encounter Summary ---
Author Organization [facility] [place] [address] Care Team Providers Care Commercial Sheet Metal Foreman Name Role Phone Unavailable Primary Care Provider Unavailabl e Reason for Visit * Reason Comments Medication Refill Encounter Details Date Type Department Care Team (Late st Contact Info) Description 04/17/2019 Refill Internal Medicine at [facility] [address] [place] [address] Nubia Botello APRN [facility] [place] [address] Fibromyalgia Social History Tobacco Use Types Packs/Day [...]
--- OUTSIDE RECORDS SUMMARY | 2024-04-03 16:04 | XMS_ITS | Encounter Summary ---
Author Organization [facility] [place] [address] Care Team Providers Care Senior Sas Programmer Name Role Phone Brittany Saini APRN Primary Care Provider [phone] Reason for Visit * Reason Onset Date Comments Other 04/24/2021 Regarding atovaq uone Rx Encounter Details Date Type Department Care Team (Late st Contact Info) Description 04/24/2021 Telephone Pulmonology at [facility] [place] [place] [address] Baylee Slaughter RN Other (Regarding atovaquone Rx) Social History Tobacco Use Types Packs/Day Years [...] Telephone Encounter - Baylee Slaughter RN - 04/24/2021 9:48 AM EDT I have called Pt back in regards to continuation of atovaquone. I have relayed the following message to Pt as follows: If she is only on 10 mg prednisone, she does not need to be on atovaquone. - Dr. Galicia Pt verbally expressed understanding of these instructions and did not have nay further questions for me at this time. Baylee Slaughter RN Department of Pulmonary 5C, [facility] [place] [place] / Pager: [phone] documented in this encounter Plan of Treatment Not on file documented as of this encounter Visit Diagnoses Not on filedocumented in this encounter Care Teams Senior Sas Programmer Relationship Specialty Start Date End Date Brittany Saini, [place]ARY [address] [place] [address] PCP - General Family Medicine 09/05/20 documented as of this encounter
--- OUTSIDE RECORDS SUMMARY | 2024-04-03 16:04 | XMS_ITS | Encounter Summary ---
Author Organization [facility] [place] [address] Care Team Providers Care Release Manager Name Role Phone Rosmery, Nubia Lopez APRN Primary Care Provider + Reason for Visit * Reason Onset Date Comments Medication Refill 01/31/2018 Encounter Details Date Type Department Care Team (Late st Contact Info) Description 01/31/2018 Refill Internal Medicine at [address] [address] Erinn Montemayor, [employer] Social History Tobacco Use Types Packs/Day Years [...] on filedocumented in this encounter Care Teams Release Manager Relationship Specialty Start Date End Date Nubia Botello APRN [facility] [place] [address] PCP - General 01/16/14 01/28/19 documented as of this encounter
--- OUTSIDE RECORDS SUMMARY | 2024-04-03 16:04 | XMS_ITS | Encounter Summary ---
Author Organization [facility] [place] [address] Care Team Providers Care Lgsw Name Role Phone Parveen Brittany VEGA Primary Care Provider [phone] Encounter Details Date Type Department Care Team (Late st Contact Info) Description 03/13/2021 Telephone [place] [address] Marcelle Arnold Social History Tobacco Use Types [...] on filedocumented in this encounter Care Teams Lgsw Relationship Specialty Start Date End Date Brittany Saini APRN [address] [place] [address] PCP - General Family Medicine 09/05/20 documented as of this encounter
--- OUTSIDE RECORDS SUMMARY | 2024-04-03 16:04 | XMS_ITS | Encounter Summary ---
Author Organization Formerly [facility] Address [facility] [place] [address] Care Team Providers Care Airplane Flight Attendant Supervisor Name Role Phone Nubia Botello APRN Primary Care Provider + Reason for Visit * Reason Comments Pain Management * Consultation (Routine) - Closed Specialty Diagnoses / Procedures Referred By Dennis daniels Referred To Contact Pain Management Diagnoses Chronic pain syndrome Fibromyalgia Nubia Botello APRN [facility] [place] [place] [address] [facility] [address] [place] [phone] Referral ID Status Reason Start Date Expiration Date V isits Requested Visits Authorized [id number] Closed Specialty Service Requested 07/17/2017 07/17/2018 1 1 Encounter Details Date Type Department Care Team (Late st Contact Info) Description 10/29/2017 10:30 AM EDT Office Visit [place] [address] Laz Chino MD [facility] [place] [address] Fibromyalgia; Chronic pain syndrome Social History Tobacco Use Types Packs/Day Years [...] Sign Reading Time Taken Comments Blood Pressure 130/90 10/29/2017 10:33 AM EDT Pulse 98 10/29/2017 10:33 AM EDT Temperature - - Respiratory Rate - - Oxygen Saturation 98% 10/29/2017 10:33 AM EDT Inhaled Oxygen Concentration - - Weight 104.8 kg (231 lb) 10/29/2017 10:33 AM EDT Height 162.6 cm (5' 4) 10/29/2017 10:33 AM EDT Body Mass Index 39.65 10/29/2017 10:33 AM EDT documented in this encounter Progress Notes * Laz Chino MD - 10/29/2017 10:30 AM EDT PAIN CLINIC CONSULTATION Date of Consultation: October 29, 2017 I am seeing Ms. Diego at the request of her PCP Nubia Botello for my opinion and recommendations regarding her chronic widespread pain throughout her physiology secondary to fibromyalgia. Chief Complaint: her chronic widespread pain throughout her physiology secondary to fibromyalgia. HPI: Subjective Nancy Diego is a 51 y.o. female who presents today for evaluation of her chronic widespread pain throughout her physiology secondary to fibromyalgia. She expresses anger in regard to how poorly her pain is being treated stating, considering how much horrible pain I am in every day you could give me something else to treat it. LOCATION: chronic widespread pain throughout her physiology including bilateral shoulders, hips, ankles, knees ONSET: 2-3 years prior ASSOCIATED SYMPTOMS: Reduced range of motion in her major joints with pain throughout range of motion PAIN DESCRIPTION: Deep aching sensation in the bone itself,not the surface skin but the bone itself. PRESENT: Constant 75% of the time PAIN INCREASED BY: sitting, standing, forward flexion, walking up and down stairs. Cold damp weather changes. PAIN DECREASED BY: she reports no relieving modifying factors PAIN LEVEL: PAIN LEVEL: Presently: 5/10 At rest: 3/10 At its worst: 8/10 At its best: 2/10 Average:5/10 She was evaluated by rheumatology in 2017 at [facility] and prescribed diclofenac gel which was not covered by her insurance and therefore not trialed. She has trialed gabapentin 2700 mg daily in 3 divideddoses, which she currently uses. She is prescribed cyclobenzaprine 10 mg every 8 hours as needed for muscle spasm. She also uses Cymbalta 60 mg daily. She has been prescribed oxycodone 5 mg tablets, hydrocodone 5 mg tablets, and tramadol 50 mg tablets in the past but did not find this was adequate to provide her with analgesia.She has no daily exercise regimen. She reports that she is unable to keep up with her 5 adopted children. She has trilaed cold and hot compresses, heating pads and placing pillows under her knees at night without benefit. She uses OTC Advil 800 mg and 1500 mg of Tylenol to treat her migraine headaches which occur approximately 3 x per week. She smokes 1/2 PPD tobacco. ACTIVITY LEVEL: Patient reports pain inhibition of function as decreasing ability to participate inleisure activity and certain activities of daily living including vacuuming, cleaning, and doing dishes. Patient reports quality of life adversely affected by daily experience pain. Treatment Goals: Maintain independence of activities of daily living Improved functional level without pain inhibition of function Decreased daily experiences pain Improve quality of life OPIOID RISK ASSESSMENT OPIOID RISK TOOL Female Male 1. Family history of Substance Abuse Alcohol [x] 1 [] 3 Illegal Drugs [] 2 [] 3 Prescription Drugs [] 4 [] 4 2. Personal History of Substance Abuse Alcohol [] 3 [] 3 Illegal Drugs [] 4 [] 4 Prescription Drugs [] 5 [] 5 3. Age (beau box if 16-45) [] 1 [] 1 4. History of Preadolescent Sexual Abuse [] 3 [] 0 5. Psychological Disease Attention Deficit Disorder, Obsessive Compulsive D/o, Bipolar, Schizophrenia [] 2 [] 2 Depression [x] 1 [] 1 TOTAL: 2 Opioid Risk Category: Low risk Total Score Risk Category: 0-3 = Low Risk 4-7 = Moderate Risk > 8 = High Risk Suicide/Homicide Risks Suicidal ideations No Suicidal plans No Homicidal ideations No Other significant history History of DUI or DWI? No History of incarceration? No History of discharge from another pain provider? No History of an inconsistent Urine Drug Screen? No Current use of a benzodiazepine? No Current use of other APPLICATIONS PROGRAMMER ANALYST depressant? No Current diagnosis of Obstructive Seep Apnea? Yes CPAP use: No Repeated visits to acute care facilities of other care facilities seeking opioids? No Current ? No Repeated visits to urgent care facilities and/or emergency departments seeking opioids? No Evidence or risk of significant adverse events including falls or fractures? No Are you now or in past received methadone or suboxone (buprenorphine) from a clinic? No Ever participated in drug or alcohol rehabilitation program? No Share your pain medications or accept medications from family/friends? No [place] & [place] Prescription Drug Monitoring Program data reviewed? Yes Inconsistencies? No PAST MEDICAL HISTORY: Past Medical History: Diagnosis Date ??? Asthma ??? BMI 39.0-39.9,adult ??? Depression 04/13/2013 ??? GERD (gastroesophageal reflux disease) ??? History of seizures ??? HTN (hypertension) 04/13/2013 ??? Migraine ??? Mood disorder ??? KOSTA (obstructive sleep apnea) ??? PTSD (post-traumatic stress disorder) ??? Smoker ??? Urge incontinence PAST SURGICAL HISTORY: Past Surgical History: Procedure Laterality Date ??? SECTION x3 ??? CHOLECYSTECTOMY ??? DENTAL SURGERY wisdom teeth, one pulled ??? HYSTERECTOMY ??? OVARY REMOVAL after hysterectomy ??? PRO COLONOSCOPY, BIOPSY N/A 03/26/2016 COLONOSCOPY FLEXIBLE, WITH BX performed by Mohinder Cid MD at [facility] ??? PRO COLONOSCOPY, DIAGNOSTIC N/A 02/05/2017 COLONOSCOPY, DIAGNOSTIC performed by Floyd Lopez MD at [facility] ALLERGIES: Latex and Penicillins MEDICATIONS: Medications 10/29/17 1032 Medication Sig Taking? metFORMIN (GLUCOPHAGE-XR) 500 mg Tablet Sustained Release 24 hr Take 2 tablets by mouth daily. Increase to 2 tablets in the morning and 500 mg at night for 2 weeks, then 2 tablets twice a day with meals. Yes buPROPion (WELLBUTRIN XL) 150 mg Tablet Extended Release 24 hr Take 1 tablet by mouth every morning. Yes atorvastatin (LIPITOR) 20 mg Tablet Take 1 tablet by mouth daily. Yes cyclobenzaprine (FLEXERIL) 10 mg Tablet Take 1 tablet by mouth 3 times daily as needed for Muscle spasms. Patient taking differently: Take 10 mg by mouth 3 times daily. Yes DULoxetine (CYMBALTA) 60 mg Capsule, Delayed Release(E.C.) Take 1 capsule by mouth daily. Yes aspirin 81 mg Tablet, Delayed Release (E.C.) Take 1 tablet by mouth daily. Yes lisinopril (PRINIVIL;ZESTRIL) 20 mg Tablet Take 1 tablet by mouth daily. Yes gabapentin (NEURONTIN) 300 mg Capsule Take 3 capsules by mouth 3 times daily. Yes lancets (FREESTYLE LANCETS) 28 gauge Misc 1 each by Other route 3 times daily. Indications: Diabetes Mellitus Yes blood sugar diagnostic strips (FREESTYLE LITE STRIPS) Strip 1 each by Other route 3 times daily. Use as instructed Indications: Diabetes Mellitus Yes blood-glucose meter (FREESTYLE LITE METER) Kit 1 blood glucose meter. Indications: Diabetes Mellitus Yes albuterol (PROAIR HFA) 90 mcg/actuation HFA Aerosol Inhaler Inhale 2 puffs into the lungs every 4 hours as needed for Wheezing. Use with spacer Yes acetaminophen (TYLENOL) 500 mg tablet Take 1,000 mg by mouth every 6 hours as needed. Yes FAMILY HISTORY: Family History Problem Relation Age of Onset ??? Cancer Mother cervical ??? Glaucoma Father ??? Cancer Maternal Aunt breast cancer ??? Diabetes Maternal Aunt ??? Diabetes Maternal Uncle SOCIAL HISTORY: Social History Social History ??? Marital status: Spouse name: N/A ??? Number of children: N/A ??? Years of education: N/A Occupational History ??? Not on file. Social History Main Topics ??? Smoking status: Current Every Day Smoker Packs/day: 0.50 Types: Cigarettes ??? Smokeless tobacco: Never Used ??? Alcohol use No ??? Drug use: No ??? Sexual activity: Not on file Other Topics Concern ??? Do You Live Alone? No ??? Tobacco In Home Yes Social History Narrative ROS: Review of Systems Constitutional: Positive for activity change and fatigue. Negative for appetite change, chills and fever. HENT: Positive for trouble swallowing. Negative for tinnitus and voice change. Eyes: Negative for discharge and itching. Respiratory: Negative for apnea and chest tightness. Cardiovascular: Negative for chest pain and leg swelling. Gastrointestinal: Positive for abdominal pain. Negative for abdominal distention. Endocrine: Negative for cold intolerance and heat intolerance. Genitourinary: Negative for flank pain and frequency. Musculoskeletal: Positive for arthralgias, back pain, gait problem, joint swelling, myalgias, neck pain and neck stiffness. Skin: Negative for color change and pallor. Allergic/Immunologic: Negative for environmental allergies and food allergies. Neurological: Positive for weakness, numbness and headaches. Hematological: Negative for adenopathy. Does not bruise/bleed easily. Psychiatric/Behavioral: Negative for agitation and behavioral problems. PHYSICAL EXAM: BP 130/90 Pulse 98 Ht 162.6 cm (5' 4) Wt 104.8 kg (231 lb) SpO2 98% BMI 39.65 kg/m2 Physical Exam Constitutional: She is oriented to person, place, and time. She appears well- developed and well-nourished. Morbidly obese HENT: Head: Normocephalic and atraumatic. Eyes: Conjunctivae and EOM are normal. Pupils are equal, round, and reactive to light. Neck: No JVD present. No thyromegaly present. Cardiovascular: Normal rate, regular rhythm and normal heart sounds. Pulmonary/Chest: Effort normal and breath sounds normal. No stridor. No respiratory distress. She has no wheezes. Abdominal: Soft. Bowel sounds are normal. Musculoskeletal: Diffusely tender in the bilateral elbows, shoulders, hips, knees, and ankles. Decreased range of motion in the lumbar spine on forward flexion to approximately 45??, extension 10??, bilateral lateralrotation 35??. Facet loading maneuver of extension and rotation of the lumbar spine produces pain bi laterally. There is pain throughout range of motion in all directions in the lumbar spine. Manual muscle testing demonstrates 5/5 strength in the bilateral upper limbs on finger flexion, wrist extension and flexion, elbow flexion- extension, and shoulder abduction and forward flexion. 5/5 strength on bilateral hip flexion, knee extension, and bilateral ankle dorsiflexion and plantar flexion. Neurological: She is alert and oriented to person, place, and time. She has normal reflexes. No cranial nerve deficit. Skin: Skin is warm and dry. No rash noted. No erythema. Psychiatric: Her behavior is normal. Judgment and thought content normal. ASSESSMENT: Assessment 1. Fibromyalgia 2. Chronic pain syndrome PLAN: 51-year-old female with chronic widespread polyarthralgia and myalgia consistent with fibromyalgia. I recommend a trial of low dose naltrexone. When taken in low doses between 1.5 and 4.5 mg per day naltrexone works as a microglial attenuatingtherapy that decreases inflammation within the central nervous system and improves chronic pain without causing habituation or dependence. Instructions for commencing low dose naltrexone therapy are the following: Take one 1.5 mg capsule QD for 7 days. If pain relief is unsatisfactory then increase to 2 capsulesper day. After 14 days if pain relief is inadequate then increase to 3 capsules per day. Low dose naltrexone is available through [facility] in [place], [place] Additionally, I recommend she employ lifestyle changes to maximize her physical function and improve her chronic pain state. These changes include dietary changes with an increase in her daily dietary intake of leafy green vegetables to improve circulation and enhance of cellular repair, daily exercise regimen of cardiovascular exercise achieving a heart rate greater than 120 beats per minute for30 minutes each day to increase endogenous opiate production and improve mood and pain control, weight loss of at least 100 pounds to decrease the stress placed upon her lumbar spine secondary to increased abdominal adiposity, and alternative exercise modalities such as yoga, swimming, or tommy chi to improve the biomechanical kinesiologic manner in which she utilizes her physicality in performanceof her activities of daily living. Treatment options for the neuropathic aspect of her chronic pain syndrome include calcium channel blockers i.e. Gabapentin of which she is already taking and may be increased to 3600 mg QD. She may benefit from rotation to Lyrica from gabapentin. She has not trialed tricyclic antidepressants i.e. Amitriptyline which may be an option. Her Cymbalta may be increased to 120 mg QD and assessed for improvement while taking higher dose. She may aso benefit from a trial of neuropathic compounding pharmacy cream consisting of ketamine 10%, amitriptyline 5%, lidocaine 5%, gabapentin 6%, and baclofen 2%. NMDA antagonists i.e memantine or ketamine, antiepileptics such as lamotrigine, topiramate, or carbamazepine may also be considered. If opiates are to be employed I would favor using Buprenorphine in the form of Belbuca with its delta and kappa receptor antagonism. Laz Chino MD [facility] Board Certified Radio Station Audio Engineer documented in this encounter Plan of Treatment Scheduled Referrals Name Type Priority Associated Diagnoses Orde r Schedule Referral to Pain Clinic Outpatient Referral Routine Chronic pain syndrome Fibromyalgia Ordered: 07/17/2017 documented as of this encounter Visit Diagnoses Diagnosis Fibromyalgia Mylagia and myositis, unspecified Chronic pain syndrome documented in this encounter Care Teams Airplane Flight Attendant Supervisor Relationship Specialty Start Date End Date Nubia Botello APRN [facility] [address] [address] PCP - General 01/16/14 01/28/19 documented as of this encounter
--- OUTSIDE RECORDS SUMMARY | 2024-04-03 16:04 | XMS_ITS | Encounter Summary ---
Author Organization [facility] Address [facility] [place] [place] [address] Care Team Providers Care Bounty Trapper Name Role Phone Brittany Saini APRN Primary Care Provider Reason for Referral * Diagnostic Test (Routine) - Closed Specialty Diagnoses / Procedures Referred By Contac t Referred To Contact Radiology Diagnoses Dyspnea, unspecified type Procedures CT Chest wo Contrast (Generic) Anu Galicia MD [facility] [place] [address] [facility] [place] [address] Referral ID Status Reason Start Date Expiration Date V isits Requested Visits Authorized [id number] Closed Specialty Service Requested 01/09/2021 06/23/2021 1 1 Reason for Visit * Diagnostic Test (Routine) - Closed Specialty Diagnoses / Procedures Referred By Contac t Referred To Contact Radiology Diagnoses Dyspnea, unspecified type Procedures CT Chest wo Contrast (Generic) Anu Galicia MD [facility] [place] [address] [facility] [place] [address] Referral ID Status Reason Start Date Expiration Date V isits Requested Visits Authorized [id number] Closed Specialty Service Requested 01/09/2021 06/23/2021 1 1 Encounter Details Date Type Department Care Team (Latest Contact Info) Description 01/09/2021 9:52 AM EDT - 01/09/2021 11:59 PM EDT Hospital [place] [address] Anu Galicia MD [facility] [place] [address] Dyspnea, unspecified type Discharge Disposition: Home Social History Tobacco Use [...] Sig Dispensed Refills Start Date End Date cholecalciferol, Vitamin D3, 50 mcg (2,000 unit) Capsule Take 2,000 Units by mouth daily. 09/22/2020 ferrous gluconate (Fergon) 324 mg (37.5 mg iron) Tablet Take 1 tablet by mouth daily. 11/03/2020 metFORMIN (GLUCOPHAGE) 1,000 mg Tablet Take 1,000 mg by mouth 2 times daily. 11/03/2020 nystatin (Mycostatin) 100,000 unit/mL SuspensionIndications :Oral thrush Take 5 mLs by mouth 4 times daily. 300 mL 1 12/16/2020 gabapentin (NEURONTIN) 400 mg CapsuleIndications:Fi bromyalgia Take [...] by mouth every 6 hours as needed. Advair Diskus 250-50 mcg/dose Disk with Device Inhale 1 puff into the lungs 2 times daily. 09/22/2020 02/02/2021 documented as of this encounter Plan of Treatment Not on file documented as of this encounter Procedures Procedure Name Priority Date/Time Associated Diagnosis Comments CT CHEST WO CONTRAST (GENERIC) Routine 01/09/2021 10:36 AM EDT Dyspnea, unspecified type documented in this encounter Results * CT [...] who have questions please contact the health resident care supervisor that requested your imaging first. ? Electronically signed by: Klaudia Chaudhary MD, [facility] ([phone]), at 01/09/2021 1:30 PM Narrative 01/09/2021 1:30 [...] window, and lower right paratracheal lymph nodes [id number] mm, 10 mm, and 11 mm in [...] patients who have questions please contactthe health resident care supervisor that requested your imaging first. Electronically signed by: Klaudia Chaudhary MD, [facility]([phone]), at 01/09/2021 1:30 PM Anu Galicia MD IMG CT ORDERABLES documented in this encounter Visit Diagnoses Diagnosis Dyspnea, unspecified type documented in this encounter Care Teams Bounty Trapper Relationship Specialty Start Date End Date Brittany Saini, GARY [address] [facility] [address] PCP - General Family Medicine 09/05/20 documented as of this encounter
--- OUTSIDE RECORDS SUMMARY | 2024-04-03 16:04 | XMS_ITS | Encounter Summary ---
Author Organization [facility] [place] [address] Care Team Providers Care Broom Handle Dipper Name Role Phone ParveenBrittany GARY Primary Care Provider Reason for Visit * Reason Comments Medication Refill Atovaquone Rx Encounter Details Date Type Department Care Team (Late st Contact Info) Description 04/12/2021 [place] [address] Anu Galicia MD [facility] [place] [address] ILD (interstitial lung disease) Social History Tobacco [...] fibrosis documented in this encounter Care Teams Broom Handle Dipper Relationship Specialty Start Date End Date Brittany Saini APRN [address] [place] [address] PCP - General Family Medicine 09/05/20 documented as of this encounter
--- OUTSIDE RECORDS SUMMARY | 2024-04-03 16:04 | XMS_ITS | Encounter Summary ---
Author Organization [facility] [place] [address] Care Team Providers Care Papier Mache Molder Name Role Phone Rosmery, Nubia Lopez APRN Primary Care Provider + Reason for Visit * Reason Comments Diabetes Encounter Details Date Type Department Care Team (Late st Contact Info) Description 10/31/2018 9:30 AM EDT Office Visit Internal Medicine at [address] [address] Nubia Botello APRN [facility] [place] [address] Type 2 diabetes mellitus without complication, without long-term current use of insulin; Nocturnal hypoxemia; Chest pain, unspecified type Social History Tobacco Use Types Packs/Day [...] Sign Reading Time Taken Comments Blood Pressure 140/82 10/31/2018 9:18 AM EDT Pulse 87 10/31/2018 9:18 AM EDT Temperature 36.9 ??C (98.4 ??F) 10/31/2018 9:18 AM ED T Respiratory Rate 18 10/31/2018 9:18 AM EDT Oxygen Saturation 96% 10/31/2018 9:18 AM EDT Inhaled Oxygen Concentration - - Weight 106.6 kg (235 lb) 10/31/2018 9:18 AM EDT Height - - Body Mass Index 41.12 04/14/2018 10:02 AM EDT documented in this encounter Patient Instructions * Patient Instructions* Nubia Botello, REMOVABLE PROSTHODONTIST - 10/31/2018 9:30 AM EDT Images from the original note were not included. Patient Education Back Pain: Care Instructions Your Care Instructions Back pain has many possible causes. It is often related to problems with muscles and ligaments of the back. It may also be related to problems with the nerves, discs, or bones of the back. Moving, lifting, standing, sitting, or sleeping in an awkward way can strain the back. Sometimes you don't notice the injury until later. Arthritis is another common cause of back pain. Although it may hurt a lot, back pain usually improves on its own within several weeks. Most peoplerecover in 12 weeks or less. Using good home treatment and being careful not to stress your back can help you feel better sooner. Follow-up care is a perkins part of your treatment and safety. Be sure to make and go to all appointments, and call your doctor if you are having problems. It's also a good idea to know your test resultsand keep a list of the medicines you take. How can you care for yourself at home? ?? Sit or lie in positions that are most comfortable and reduce your pain. Try one of these positions when you lie down: ? Lie on your back with your knees bent and supported by large pillows. ? Lie on the floor with your legs on the seat of a sofa or chair. ? Lie on your side with your knees and hips bent and a pillow between your legs. ? Lie on your stomach if it does not make pain worse. ?? Do not sit up in bed, and avoid soft couches and twisted positions. Bed rest can help relieve pain at first, but it delays healing. Avoid bed rest after the first day of back pain. ?? Change positions every 30 minutes. If you must sit for long periods of time, take breaks from sitting. Get up and walk around, or lie in a comfortable position. ?? Try using a heating pad on a low or medium setting for 15 to 20 minutes every 2 or 3 hours. Try a warm shower in place of one session with the heating pad. ?? You can also try an ice pack for 10 to 15 minutes every 2 to 3 hours. Put a thin cloth between the ice pack and your skin. ?? Take pain medicines exactly as directed. ? If the doctor gave you a prescription medicine for pain, take it as prescribed. ? If you are not taking a prescription pain medicine, ask your doctor if you can take an hdgx-jqs-xfnbpwv medicine. ?? Take short walks several times a day. You can start with 5 to 10 minutes, 3 or 4 times a day, and work up to longer walks. Walk on level surfaces and avoid hills and stairs until your back is better. ?? Return to work and other activities as soon as you can. Continued rest without activity is usually not good for your back. ?? To prevent future back pain, do exercises to stretch and strengthen your back and stomach. Learnhow to use good posture, safe lifting techniques, and proper body mechanics. When should you call for help? Call your doctor now or seek immediate medical care if: ? You have new or worsening numbness in your legs. ? You have new or worsening weakness in your legs. (This could make it hard to stand up.) ? You lose control of your bladder or bowels. ??Watch closely for changes in your health, and be sure to contact your doctor if: ? You have a fever, lose weight, or don't feel well. ? You do not get better as expected. Where can you learn more? Visit our [employer] information library at [email or web address]. You can also view health information on [employer], your personal patient account. Log in or sign uptoday. Enter I594 in the search box to learn more about Back Pain: Care Instructions. Current as of: March 13, 2018 Content Version: 12.0 ?? [id number] [employer]. Care instructions adapted under license by [facility]. If you have questions about a medical condition or this instruction, always ask your healthcare professional. [employer] disclaims any warranty or liability for your use of this information. Patient Education Low Back Pain: Exercises Your Care Instructions Here are some examples of typical rehabilitation exercises for your condition. Start each exercise slowly. Ease off the exercise if you start to have pain. Your doctor or physical therapist will tell you when you can start these exercises and which ones will work best for you. How to do the exercises Press-up 1. Lie on your stomach, supporting your body with your forearms. 2. Press your elbows down into the floor to raise your upper back. As you do this, relax your stomach muscles and allow your back to arch without using your back muscles. As your press up, do not letyour hips or pelvis come off the floor. 3. Hold for 15 to 30 seconds, then relax. 4. Repeat 2 to 4 times. Alternate arm and leg (bird dog) exercise 1. Start on the floor, on your hands and knees. 2. Tighten your belly muscles. 3. Raise one leg off the floor, and hold it straight out behind you. Be careful not to let your hipdrop down, because that will twist your trunk. 4. Hold for about 6 seconds, then lower your leg and switch to the other leg. 5. Repeat 8 to 12 times on each leg. 6. Over time, work up to holding for 10 to 30 seconds each time. 7. If you feel stable and secure with your leg raised, try raising the opposite arm straight out infront of you at the same time. Dgtt-xz-uszrh exercise 1. Lie on your back with your knees bent and your feet flat on the floor. 2. Bring one knee to your chest, keeping the other foot flat on the floor (or keeping the other legstraight, whichever feels better on your lower back). 3. Keep your lower back pressed to the floor. Hold for at least 15 to 30 seconds. 4. Relax, and lower the knee to the starting position. 5. Repeat with the other leg. Repeat 2 to 4 times with each leg. 6. To get more stretch, put your other leg flat on the floor while pulling your knee to your chest. Curl-ups 1. Lie on the floor on your back with your knees bent at a 90-degree angle. Your feet should be flat on the floor, about 12 inches from your buttocks. 2. Cross your arms over your chest. If this bothers your neck, try putting your hands behind your neck (not your head), with your elbows spread apart. 3. Slowly tighten your belly muscles and raise your shoulder blades off the floor. 4. Keep your head in line with your body, and do not press your chin to your chest. 5. Hold this position for 1 or 2 seconds, then slowly lower yourself back down to the floor. 6. Repeat 8 to 12 times. Pelvic tilt exercise 1. Lie on your back with your knees bent. 2. Brace your stomach. This means to tighten your muscles by pulling in and imagining your belly button moving toward your spine. You should feel like your back is pressing to the floor and your hips and pelvis are rocking back. 3. Hold for about 6 seconds while you breathe smoothly. 4. Repeat 8 to 12 times. Heel dig bridging 1. Lie on your back with both knees bent and your ankles bent so that only your heels are digging into the floor. Your knees should be bent about 90 degrees. 2. Then push your heels into the floor, squeeze your buttocks, and lift your hips off the floor until your shoulders, hips, and knees are all in a straight line. 3. Hold for about 6 seconds as you continue to breathe normally, and then slowly lower your hips back down to the floor and rest for up to 10 seconds. 4. Do 8 to 12 repetitions. Hamstring stretch in doorway 1. Lie on your back in a doorway, with one leg through the open door. 2. Slide your leg up the wall to straighten your knee. You should feel a gentle stretch down the back of your leg. 3. Hold the stretch for at least 15 to 30 seconds. Do not arch your back, point your toes, or bend either knee. Keep one heel touching the floor and the other heel touching the wall. 4. Repeat with your other leg. 5. Do 2 to 4 times for each leg. Hip flexor stretch 1. Kneel on the floor with one knee bent and one leg behind you. Place your forward knee over your foot. Keep your other knee touching the floor. 2. Slowly push your hips forward until you feel a stretch in the upper thigh of your rear leg. 3. Hold the stretch for at least 15 to 30 seconds. Repeat with your other leg. 4. Do 2 to 4 times on each side. Wall sit 1. Stand with your back 10 to 12 inches away from a wall. 2. Lean into the wall until your back is flat against it. 3. Slowly slide down until your knees are slightly bent, pressing your lower back into the wall. 4. Hold for about 6 seconds, then slide back up the wall. 5. Repeat 8 to 12 times. Follow-up care is a perkins part of your treatment and safety. Be sure to make and go to all appointments, and call your doctor if you are having problems. It's also a good idea to know your test resultsand keep a list of the medicines you take. Where can you learn more? Visit our [employer] information library at [email or web address]. You can also view health information on [employer], your personal patient account. Log in or sign uptoday. Enter Z938 in the search box to learn more about Low Back Pain: Exercises. Current as of: March 13, 2018 Content Version: 12.0 ?? [id number] [employer]. Care instructions adapted under license by [facility]. If you have questions about a medical condition or this instruction, always ask your healthcare professional. [employer] disclaims any warranty or liability for your use of this information. Patient Education Sacroiliac Pain: Exercises Your Care Instructions Here are some examples of typical rehabilitation exercises for your condition. Start each exercise slowly. Ease off the exercise if you start to have pain. Your doctor or physical therapist will tell you when you can start these exercises and which ones will work best for you. How to do the exercises Feax-hc-ixcdz stretch 5. Do not do the fyor-aw-odkyj exercise if it causes or increases back or leg pain. 6. Lie on your back with your knees bent and your feet flat on the floor. You can put a small pillow under your head and neck if it is more comfortable. 7. Grasp your hands under one knee and bring the knee to your chest, keeping the other foot flat onthe floor. 8. Keep your lower back pressed to the floor. Hold for at least 15 to 30 seconds. 9. Relax and lower the knee to the starting position. Repeat with the other leg. 10. Repeat 2 to 4 times with each leg. 11. To get more stretch, keep your other leg flat on the floor while pulling your knee to your chest. Bridging 8. Lie on your back with both knees bent. Your knees should be bent about 90 degrees. 9. Tighten your belly muscles by pulling in your belly button toward your spine. Then push your feet into the floor, squeeze your buttocks, and lift your hips off the floor until your shoulders, hips, and knees are all in a straight line. 10. Hold for about 6 seconds as you continue to breathe normally, and then slowly lower your hips back down to the floor and rest for up to 10 seconds. 11. Repeat 8 to 12 times. Hip extension 7. Get down on your hands and knees on the floor. 8. Keeping your back and neck straight, lift one leg straight out behind you. When you lift your leg, keep your hips level. Don't let your back twist, and don't let your hip drop toward the floor. 9. Hold for 6 seconds. Repeat 8 to 12 times with each leg. 10. If you feel steady and strong when you do this exercise, you can make it more difficult. To do this, when you lift your leg, also lift the opposite arm straight out in front of you. For example, lift the left leg and the right arm at the same time. (This is sometimes called the bird dog exercise.) Hold for 6 seconds, and repeat 8 to 12 times on each side. Clamshell 7. Lie on your side with a pillow under your head. Keep your feet and knees together and your kneesbent. 8. Raise your top knee, but keep your feet together. Do not let your hips roll back. Your legs should open up like a clamshell. 9. Hold for 6 seconds. 10. Slowly lower your knee back down. Rest for 10 seconds. 11. Repeat 8 to 12 times. 12. Switch to your other side and repeat steps 1 through 5. Hamstring wall stretch 5. Lie on your back in a doorway, with one leg through the open door. 6. Slide your affected leg up the wall to straighten your knee. You should feel a gentle stretch down the back of your leg. 1. Do not arch your back. 2. Do not bend either knee. 3. Keep one heel touching the floor and the other heel touching the wall. Do not point your toes. 7. Hold the stretch for at least 1 minute to begin. Then try to lengthen the time you hold the stretch to as long as 6 minutes. 8. Switch legs, and repeat steps 1 through 3. 9. Repeat 2 to 4 times. 10. If you do not have a place to do this exercise in a doorway, there is another way to do it: 11. Lie on your back, and bend one knee. 12. Loop a towel under the ball and toes of that foot, and hold the ends of the towel in your hands. 13. Straighten your knee, and slowly pull back on the towel. You should feel a gentle stretch down the back of your leg. 14. Switch legs, and repeat steps 1 through 3. 15. Repeat 2 to 4 times. Lower abdominal strengthening 5. Lie on your back with your knees bent and your feet flat on the floor. 6. Tighten your belly muscles by pulling your belly button in toward your spine. 7. Lift one foot off the floor and bring your knee toward your chest, so that your knee is straightabove your hip and your leg is bent like the letter L. 8. Lift the other knee up to the same position. 9. Lower one leg at a time to the starting position. 10. Keep alternating legs until you have lifted each leg 8 to 12 times. 11. Be sure to keep your belly muscles tight and your back still as you are moving your legs. Be sure to breathe normally. Piriformis stretch 6. Lie on your back with your legs straight. 7. Lift your affected leg, and bend your knee. With your opposite hand, reach across your body, andthen gently pull your knee toward your opposite shoulder. 8. Hold the stretch for 15 to 30 seconds. 9. Switch legs and repeat steps 1 through 3. 10. Repeat 2 to 4 times. Follow-up care is a perkins part of your treatment and safety. Be sure to make and go to all appointments, and call your doctor if you are having problems. It's also a good idea to know your test resultsand keep a list of the medicines you take. Where can you learn more? Visit our health information library at [email or web address]. You can also view health information on [employer], your personal patient account. Log in or sign uptoday. Enter T635 in the search box to learn more about Sacroiliac Pain: Exercises. Current as of: March 13, 2018 Content Version: 12.0 ?? [id number] [employer]. Care instructions adapted under license by [facility]. If you have questions about a medical condition or this instruction, always ask your healthcare professional. [employer] disclaims any warranty or liability for your use of this information. Patient Education Sciatica: Exercises Your Care Instructions Here are some examples of typical rehabilitation exercises for your condition. Start each exercise slowly. Ease off the exercise if you start to have pain. Your doctor or physical therapist will tell you when you can start these exercises and which ones will work best for you. When you are not being active, find a comfortable position for rest. Some people are comfortable onthe floor or a medium-firm bed with a small pillow under their head and another under their knees. Some people prefer to lie on their side with a pillow between their knees. Don't stay in one position for too long. Take short walks (10 to 20 minutes) every 2 to 3 hours. Avoid slopes, hills, and stairs until you feel better. Walk only distances you can manage without pain, especially leg pain. How to do the exercises Back stretches 12. Get down on your hands and knees on the floor. 13. Relax your head and allow it to droop. Round your back up toward the ceiling until you feel a nice stretch in your upper, middle, and lower back. Hold this stretch for as long as it feels comfortable, or about 15 to 30 seconds. 14. Return to the starting position with a flat back while you are on your hands and knees. 15. Let your back sway by pressing your stomach toward the floor. Lift your buttocks toward the ceiling. 16. Hold this position for 15 to 30 seconds. 17. Repeat 2 to 4 times. Follow-up care is a perkins part of your treatment and safety. Be sure to make and go to all appointments, and call your doctor if you are having problems. It's also a good idea to know your test resultsand keep a list of the medicines you take. Where can you learn more? Visit our [employer] information library at [email or web address]. You can also view health information on [employer], your personal patient account. Log in or sign uptoday. Enter L998 in the search box to learn more about Sciatica: Exercises. Current as of: March 13, 2018 Content Version: 12.0 ?? [id number] [employer]. Care instructions adapted under license by [facility]. If you have questions about a medical condition or this instruction, always ask your healthcare professional. [employer] disclaims any warranty or liability for your use of this information. documented in this encounter Progress Notes * Nubia Botello APRN - 10/31/2018 9:30 AM EDT PCP: Nubia Botello APRN Chief Complaint Patient presents with ??? Diabetes SUBJECTIVE: Nancy Diego is a 52 y.o. female who presents for follow up on her diabetes and chronic pain. She is taking her medications regularly. Lab Results Component Value Date HA1C 7.0 (A) 02/05/2018 - a1c today is 6.9. Oxygen- she uses oxygen at night. She does not need it during the day or with ambulation. Oxygen saturation on room air at rest is 96%. With ambulation on room air it is 92% and HR of 108 with some shortness of breath. She has history of desat below 80% at night on room air. Problem with swallowing- she feels that she cannot swallow well and feels it goes down the wrong way. Sometimes she has a hard time swallowing food or even saliva. Chest pain- She reports that she will get chest tightness with ambulation. She reprots that the occur in mid chest and they go away. It is not a pressure, but more of a pain. Sometimes last 10-15 minutes at a time. Symptoms last occurred 2.5 weeks ago. - she continues to have body pain. She reports that she was picking up boxes and she started to getpain in her buttocks. - marijuana use at night has helped her with sleep. Review of Systems Constitutional: Positive for fatigue. Negative for chills and fever. Respiratory: Negative for cough. Cardiovascular: Positive for chest pain. Musculoskeletal: Positive for arthralgias, back pain and myalgias. Allergies Allergen Reactions ??? Latex Skin cracks and bleeds ??? Penicillins Rash Current Outpatient Medications Medication Sig Dispense Refill ??? atorvastatin (LIPITOR) 20 mg Tablet TAKE 1 TABLET BY MOUTH EVERY DAY 90 tablet 3 ??? atorvastatin (LIPITOR) 20 mg Tablet TAKE 1 TABLET BY MOUTH EVERY DAY 90 tablet 0 ??? DULoxetine (CYMBALTA) 60 mg Capsule, Delayed Release(E.C.) Take 1 capsule by mouth daily. 90 tablet 3 ??? metFORMIN (GLUCOPHAGE-XR) 500 mg Tablet Sustained Release 24 hr Take two tabs twice daily 360 tablet 3 ??? cyclobenzaprine (FLEXERIL) 10 mg Tablet TAKE 1 TABLET BY MOUTH THREE TIMES DAILY NEEDED FOR MUSCLE SPASMS 90 tablet 3 ??? lisinopril (PRINIVIL;ZESTRIL) 40 mg Tablet Take 1 tablet by mouth daily. 90 tablet 3 ??? gabapentin (NEURONTIN) 400 mg Capsule Take 3 capsules by mouth 3 times daily. 270 capsule 11 ??? doxycycline monohydrate (MONODOX) 100 mg Capsule Take 1 capsule by mouth 2 times daily. 28 capsule 0 ??? clobetasol (TEMOVATE) 0.05 % Cream Apply topically 2 times daily. 30 g 0 ??? aspirin 81 mg Tablet, Delayed Release [...] 1 tablet by mouth 4 times daily. (Patient not taking: Reported on 10/31/2018) 60 tablet 3 No current facility-administered medications for this visit. Patient Active Problem List Diagnosis Code ??? Depression F32.9 ??? Irritable bowel syndrome K58.9 ??? GERD (gastroesophageal reflux disease) K21.9 ??? Peptic ulcer disease K27.9 ??? Migraines G43.909 ??? Elevated blood pressure R03.0 ??? Body mass index (BMI) of 39.0-39.9 in adult Z68.39 ??? Low back pain M54.5 ??? Type 2 diabetes mellitus without complication, without long-term current use of insulin E11.9 ??? Fatigue R53.83 ??? Fibromyalgia M79.7 ??? Pain in right shoulder M25.511 OBJECTIVE: Vitals: 10/31/18 0918 BP: 140/82 BP Location (NBP): Left arm Patient Position: Sitting BP Cuff Sizes: Adult (25-34 cm) Pulse: 87 Resp: 18 Temp: 36.9 ??C (98.4 ??F) TempSrc: Oral SpO2: 96% Weight: 106.6 kg (235 lb) PHYSICAL EXAM: Physical Exam Constitutional: She is oriented to person, place, and time. She appears well- developed and well-nourished. No distress. HENT: Head: Normocephalic and atraumatic. Eyes: Conjunctivae are normal. Cardiovascular: Normal rate, regular rhythm and normal heart sounds. No murmur heard. Pulmonary/Chest: Effort normal and breath sounds normal. She has no wheezes. She has no rales. She exhibits no tenderness. Neurological: She is alert and oriented to person, place, and time. Skin: Skin is warm and dry. Psychiatric: She has a normal mood and affect. Her behavior is normal. Judgment and thought contentnormal. Vitals reviewed. ASSESSMENT & PLAN: Nancy was seen today for diabetes. Diagnoses and all orders for this visit: Type 2 diabetes mellitus without complication, without long-term current use of insulin - POCT glycated hemoglobin, total (HA1C) - Comprehensive metabolic panel (non-fasting); Future - Comprehensive metabolic panel (non-fasting) - continue on current medications. Nocturnal hypoxemia - continue with oxygen at night Chest pain, unspecified type - EKG 12 Lead - Echocardiogram Stress (Treadmill); Future - patient at increased risk for CAD, will do stress test documented in this encounter Plan of Treatment Not on file documented as of this encounter Procedures Procedure Name Priority Date/Time Associated Diagnosis Comments COMPREHENSIVE METABOLIC PANEL Routine 10/31/2018 10:46 AM EDT Type 2 diabetes mellitus without complication, without long-term current use of insulin EKG 12-LEAD Routine 10/31/2018 9:52 AM EDT Chest pain, unspecified type POCT GLYCATED HEMOGLOBIN, TOTAL (HA1C) Routine 10/31/2018 9:25 AM EDT Type 2 diabetes mellitus without complication, without long-term current use of insulin documented in this encounter Results * (ABNORMAL) Comprehensive metabolic panel (non-fasting) (10/31/2018 10:46 AM EDT) Glucose 127 65 - 199 mg/dL [facility] Comment:Diabetes: >=200 mg/d L plus symptoms Blood Urea Nitrogen 9 8 - 18 mg/dL [facility] Creatinine 0.83 0.70 - 1.20 mg/dL [facility] [facility] Sodium 139 135 - 145 mmol/L [facility] Potassium 4.2 3.5 - 5.0 mmol/L [facility] Comment: Please note: ??Patients with WBC >100,000 may have falsely elevated Potassium levels. ??For accurate Potassium quantification in these patients send serum separator tube (gold top) for subsequent determinations. ??Contact the Clinical Chemistry Laboratory if there are any questions. Chloride 102 98 - 107 mmol/L [facility] Carbon Dioxide 25 22 - 31 mmol/L [facility] Anion Gap 12 5 - 15 mmol/L [facility] Calcium 8.9 8.5 - 10.5 mg/dL [facility] Protein, Total 8.0 6.1 - 8.0 gm/dL [facility] Albumin 4.0 3.2 - 5.2 gm/dL [facility] Aspartate Aminotransferase 37(H) 0 - 30 unit/L [facility] Alanine Aminotransferase 19 0 - 30 unit/L [facility] Alkaline Phosphatase 140(H) 40 - 104 unit/L [facility] Bilirubin, Total 0.5 0.2 - 1.3 mg/dL [facility] Est Glomerular Filtration Rate 82 >=60 mL/min/1. 73 m?? [facility] Comment: The eGFR was calculated using the CKD-EPI equation. As with all creatinine based estimates of kidney function, eGFR values calculated with the CKD-EPI equation are not accurate in patients with acute kidney failure, extremes of body mass or the acutely ill. [email or web address] eGFR 95 >=60 mL/min/1. 73 m?? [facility] Comment: The eGFR was calculated using the CKD-EPI equation. As with all creatinine based estimates of kidney function, eGFR values calculated with the CKD-EPI equation are not accurate in patients with acute kidney failure, extremes of body mass or the acutely ill. [email or web address] Blood specimen (specimen) 10/31/2018 10:46 AM EDT 10/31/2018 11:52 AM EDT Narrative Resulting Agency Comment Spec In Lab Nubia Botello APRN CHEMISTRY ORDERA BLES Performing Organization Address [facility] Co de Phone Number [facility] [place] [address] * EKG 12 Lead (10/31/2018 9:52 AM EDT) Ventricular rate 79 BPM MUSE SYSTEM Atrial Rate 79 BPM MUSE SYSTEM P-R Interval 158 ms MUSE SYSTEM QRS Duration 80 ms MUSE SYSTEM Q-T Interval 416 ms MUSE SYSTEM QTC Calculated (Bezet) 477 ms MUSE SYSTEM Calculated P Cody 57 degrees MUSE SYSTEM Calculated R Cody 32 degrees MUSE SYSTEM Calculated T Cody 64 degrees MUSE SYSTEM INTERPRETATION Normal sinus rhythm Normal ECG No previous ECGs available I personally reviewed the tracing and edited the fellows interpretation Confirmed by fellow MD Marj, Kuldip ([id number]) on 10/31/2018 11:08:11 AM Confirmed by MD Beto, Kadeem Cardenas ([id number]) on 11/01/2018 11:11:48 AM MUSE SYSTEM 10/31/2018 9:52 AM EDT 11/01/2018 11:11 AM EDT Nubia Botello APRN ECG ORDERABLES MUSE SYSTEM * (ABNORMAL) POCT glycated hemoglobin, total (HA1C) (10/31/2018 9:25 AM EDT) Hemoglobin A1C, POC 6.9(A) 4.3 - 5.6 % Blood specimen (specimen) 10/31/2018 9:25 AM EDT Nubia Botello APRN POINT OF CARE TE ST ORDERABLES documented in this encounter Visit Diagnoses Diagnosis Type 2 diabetes mellitus without complication, without long-term current use of insulin Nocturnal hypoxemia Hypoxemia Chest pain, unspecified type documented in this encounter Care Teams Papier Mache Molder Relationship Specialty Start Date End Date Nubia Botello APRN [facility] [place] [address] PCP - General 01/16/14 01/28/19 documented as of this encounter
--- OUTSIDE RECORDS SUMMARY | 2024-04-03 16:04 | XMS_ITS | Encounter Summary ---
[facility] Organization [facility] [place] [address] Care Team Providers Care Card Setter Name Role Phone Brittany Saini APRN Primary Care Provider [phone] Encounter Details Date Type Department Care Team (Late st Contact Info) Description 03/10/2021 Telephone [place] [phone] Tressa Singh Social History Tobacco Use Types [...] on filedocumented in this encounter Care Teams Card Setter Relationship Specialty Start Date End Date Brittany Saini APRN [address] [place] [address] PCP - General Family Medicine 09/05/20 documented as of this encounter
--- OUTSIDE RECORDS SUMMARY | 2024-04-03 16:04 | XMS_ITS | Encounter Summary ---
Author Organization [facility] [place] [address] Care Team Providers Care Tire Changer Aircraft Name Role Phone Nubia Botello APRN Primary Care Provider + Reason for Visit * Reason Onset Date Comments Medication Refill 02/07/2018 Encounter Details Date Type Department Care Team (Late st Contact Info) Description 02/07/2018 Refill Internal Medicine at [address] [phone] Chhaya Cee CCMA Social History Tobacco Use Types Packs/Day Years [...] encounter Miscellaneous Notes * Telephone Encounter - Chhaya Cee CCMA - 02/07/2018 4:26 PM EDT Spoke to pt. Relayed message from Dr. Ervin of different topical ointment to help with the itching. Told pt to let us know Saturday if she has any further issues. Pt verbalized understanding. * Telephone Encounter - Chhaya Cee CCMA - 02/07/2018 4:16 PM EDT Speaking with pt and pharmacy trying to figure out * Telephone Encounter - Chhaya Cee CCMA - 02/07/2018 4:10 PM EDT Nubia this pt's clobestasol ointment is not covered by insurance. Is there anything else we can do? Thanks, -A documented in this encounter Plan of Treatment Not on file documented as of this encounter Visit Diagnoses Not on filedocumented in this encounter Care Teams Tire Changer Aircraft Relationship Specialty Start Date End Date Nubia Botello, TELECOMMUNICATIONS EQUIPMENT INSTALLER [facility] [address] [place] [address] PCP - General 01/16/14 01/28/19 documented as of this encounter
--- OUTSIDE RECORDS SUMMARY | 2024-04-03 16:04 | XMS_ITS | Encounter Summary ---
Author Organization [facility] [place] [address] Care Team Providers Care Supply Person Name Role Phone Nubia Botello APRN Primary Care Provider + Reason for Visit * Reason Onset Date Comments Prior Authorization 01/28/2018 clobetasol 0 .05% cream Encounter Details Date Type Department Care Team (Late st Contact Info) Description 01/28/2018 Telephone Internal Medicine at [address] [address] Erika Francisco, VERA Prior Authorization (clobetasol 0.05% cream) Social History Tobacco Use Types Packs/Day Years [...] encounter Miscellaneous Notes * Telephone Encounter - Bryanna Cortes CCMA - 02/07/2018 9:29 AM EDT Images from the original note were not included. Medication Prior Authorization for Primary [place] [address] Denied: X Case/Reference #: [id number] Additional Information from Insurance carrier: * Telephone Encounter - Ayesha Her - 02/04/2018 9:49 AM EDT Nancy calling in to reschedule her physical and to inquire about her prior auth for her cream Temovate. I called Bryanna Cortes at the prior auth department and she had informed me that it was taken careof on our end and they were just awaiting the reply from [place] Medicaid. I did relay this response to Nancy - she verbalizes understanding. * Telephone Encounter - Bryanna Cortes CCMA - 02/03/2018 10:21 AM EDT Medication Prior Authorization for Primary [place] [address] Patient: Nancy Diego Patient : 1965 Subscriber Insurance: [place] Medicaid Insurance Phone #: Sent via: [address]/Fax#: [id number] Physician: Nubia Botello APRN Return Medication Requested: clobetasol (Temovate) Strength: 0.05% cream Frequency: Apply ??topically 2 times daily. Disp.: 30 g Refills: 0 Currently taking: no Diagnosis for this medication: Rash ICD-10 code: R21 Prior medications trialed in this patient: * Telephone Encounter - Viky Robbins - 01/31/2018 4:20 PM EDT Can someone give patient or myself an update on the approval for below medication please. * Telephone Encounter - Viky oRbbins - 01/30/2018 4:23 PM EDT Patient calling as her below medication needs a prior auth and she would like to get this tomorrow.Can you give me an update on the PA process? Thank you Viky * Telephone Encounter - Erika Francisco CMA - 01/28/2018 10:32 AM EDT Images from the original note were not included. documented in this encounter Plan of Treatment Not on file documented as of this encounter Visit Diagnoses Not on filedocumented in this encounter Care Teams Supply Person Relationship Specialty Start Date End Date Nubia Botello, [facility] [address] [address] PCP - General 01/16/14 01/28/19 documented as of this encounter
--- OUTSIDE RECORDS SUMMARY | 2024-04-03 16:04 | XMS_ITS | Encounter Summary ---
Author Organization [facility] [place] [place] [address] Care Team Providers Care Green Promotions Specialist Name Role Phone RosmeryNubia ferreira GARY Primary Care Provider + Reason for Visit * Reason Comments Medication Refill Encounter Details Date Type Department Care Team (Late st Contact Info) Description 05/24/2018 Refill Internal Medicine at [address] [phone] Katie Ervin MD [facility] [address] [place] [address] Social History Tobacco Use Types Packs/Day Years [...] on filedocumented in this encounter Care Teams Green Promotions Specialist Relationship Specialty Start Date End Date Nubia Botello APRN [facility] [address] [address] PCP - General 01/16/14 01/28/19 documented as of this encounter
--- OUTSIDE RECORDS SUMMARY | 2024-04-03 16:04 | XMS_ITS | Encounter Summary ---
Author Organization [facility] [place] [address] Care Team Providers Care Nursing Care Attendant Name Role Phone RosmeryNubia ferreira John VEGA Primary Care Provider + Encounter Details Date Type Department Care Team (Late st Contact Info) Description 02/07/2018 Telephone Internal Medicine at [address] [phone] Nubia Botello APRN [facility] [place] [address] Social History Tobacco Use Types Packs/Day Years [...] Telephone Encounter - Chhaya Cee CCMA - 02/10/2018 10:10 AM EDT This has been resolved on Saturday with Dr. Ervin. Pt notified. * Addendum Note - Katie Ervin MD - 02/07/2018 4:26 PM EDTAddended by: KATIE ERVIN on: 02/07/2018 04:26 PM Modules accepted: Orders * Telephone Encounter - Chhaya Cee CCMA - 02/07/2018 3:52 PM EDT LM for pt to return my call RE: message per Lio Botello. Copied below. Chhaya- Please let patient know that script should be all set now. * Telephone Encounter - Nubia Botello APRN - 02/07/2018 1:34 PM EDT Doxy monohydrate ordered, only reason that it was not before was that it gave red x indicating thatit was not covered. Picked the doxy with green arrow on the initial order. documented in this encounter Plan of Treatment Not on file documented as of this encounter Visit Diagnoses Not on filedocumented in this encounter Care Teams Nursing Care Attendant Relationship Specialty Start Date End Date Nubia Botello APRN [facility] [address] [place] [address] PCP - General 01/16/14 01/28/19 documented as of this encounter
--- OUTSIDE RECORDS SUMMARY | 2024-04-03 16:04 | XMS_ITS | Encounter Summary ---
Author Organization [facility] [place] [address] Care Team Providers Care Wet Finisher Name Role Phone Rosmery, Nubia Lopez APRN Primary Care Provider + Reason for Visit * Reason Onset Date Comments Medication Refill 08/22/2018 Encounter Details Date Type Department Care Team (Late st Contact Info) Description 08/22/2018 [place] [address] Amisha Wei CCMA Depressive disorder Social History Tobacco Use Types [...] classified documented in this encounter Care Teams Wet Finisher Relationship Specialty Start Date End Date Nubia Botello APRN [facility] [address] [place] [address] PCP - General 01/16/14 01/28/19 documented as of this encounter
--- OUTSIDE RECORDS SUMMARY | 2024-04-03 16:04 | XMS_ITS | Encounter Summary ---
Author Organization [facility] [address] Care Team Providers Care Sales Solutions Associate Name Role Phone ParveenBrittany GARY Primary Care Provider [phone] Encounter Details Date Type Department Care Team (Late st Contact Info) Description 02/03/2021 [place] [phone] Rayne Thompson Social History Tobacco Use Types [...] on filedocumented in this encounter Care Teams Sales Solutions Associate Relationship Specialty Start Date End Date Brittany Saini APRN [address] [place] [address] PCP - General Family Medicine 09/05/20 documented as of this encounter
--- OUTSIDE RECORDS SUMMARY | 2024-04-03 16:04 | XMS_ITS | Encounter Summary ---
Author Organization [facility] [place] [address] Care Team Providers Care Establishment Guide Name Role Phone Brittany Saini APRN Primary Care Provider [phone] Encounter Details Date Type Department Care Team (Late st Contact Info) Description 09/15/2020 Orders [place] [phone] Anu Galicia MD [facility] [place] [address] Dyspnea, unspecified type (Primary Dx) Social History Tobacco Use Types [...] documented as of this encounter Results * Pulmonary Function Testing (12/16/2020 9:08 AM EDT) FVC Actual Pre-BD 2.64 L COMPAS PFT FVC Pre-BD % of Predicted 82 % COMPAS PFT FVC Predicted 3.23 L COMPAS PFT FVC Pre-BD Z-Score -1.33 COMPAS PFT FVC Lower Limits of Normal 2.51 L COMPAS PFT FEV1 Actual Pre-BD 2.09 L COMPAS PFT FEV1 Pre-BD % of Predicted 81 % COMPAS PFT FEV1 Predicted 2.58 L COMPAS PFT FEV1 Pre-BD Z-Score -1.38 COMPAS PFT FEV1 Lower Limits of Normal 2.00 L COMPAS PFT FEV1 / FVC Actual Pre-BD 79 % COMPAS PFT FEV1/FVC Pre-BD Z-Score -0.16 COMPAS PFT FEV1 / FVC LLN 69 % COMPAS PFT [id number] Actual Pre-BD 1.67 L/s COMPAS PFT NLR80-00 Pre-BD % of Predicted 66 % COMPAS PFT [id number] Predicted 2.52 L/s COMPAS PFT PCD20-66 Pre-BD Z-Score -1.18 COMPAS PFT DLCO Hb Actual Pre-BD 10.18 mL/min/mmHg COMPAS PFT DLCO Hb Pre-BD % of Predicted 51 % COMPAS PFT DLCO Hb Pre-BD Z-Score -4.43 COMPAS PFT DLCO Hb Predicted 19.97 mL/min/mmHg COMPAS PFT DLCO UNC ACT PRE-BD 10.18 mL/min/mmHg COMPAS PFT DLCO UNC PRE-BD % of PRED 51 % COMPAS PFT DLCO UNC PRE-BD Z-SCORE -4.43 % COMPAS PFT DLCO UNC Predicted 19.97 mL/min/mmHg COMPAS PFT DLCO/VA Actual Pre-BD 2.76 mL/min/mmHg /L COMPAS PFT DLCO/VA Pre-BD % of Predicted 63 % COMPAS PFT DLCO/VA Pre-BD Z-Score -2.85 COMPAS PFT DLCO/VA Predicted 4.36 mL/min/mmHg /L COMPAS PFT Narrative COMPAS PFT - 12/16/2020 9:08 AM EDT FINDINGS: FEV1, FVC, and FEV1/FVC are within normal limits. Diffusion capacity not adjusted for hemoglobin is reduced. ??There was slight oxygen desaturation during a short walk.IMPRESSION: ?? Normal spirometry. ??The isolated reduction in diffusing capacity is a nonspecific finding consistent with a variety of cardiopulmonary disorders as well as anemia. Procedure Note NEW, GLATT - 01/02/2021 FINDINGS: FEV1, FVC, and FEV1/FVC are within normal limits. Diffusioncapacity not adjusted for hemoglobin is reduced. There was slight oxygen desaturation during ashort walk.IMPRESSION: Normal spirometry. The isolated reduction in diffusing capacity is anonspecific finding consistent with a variety of cardiopulmonary disorders as well asanemia. Anu Grayson LEROY PFT ORDERABLES COMPAS PFT documented in this encounter Visit Diagnoses Diagnosis Dyspnea, unspecified type- Primary Dyspnea, unspecified type documented in this encounter Care Teams Establishment Guide Relationship Specialty Start Date End Date Brittany Saini, PHYSICIAN OFFICE NURSE [address] [facility] [address] PCP - General Family Medicine 09/05/20 documented as of this encounter
--- OUTSIDE RECORDS SUMMARY | 2024-04-03 16:04 | XMS_ITS | Encounter Summary ---
Author Organization [facility] Address [facility] [place] [address] Care Team Providers Care Pack Out Operator Name Role Phone Brittany Saini APRN Primary Care Provider Encounter Details Date Type Department Care Team (Latest Contact Info) Description 12/16/2020 11:13 AM EDT - 12/16/2020 11:59 PM EDT Hospital Encounter XRay at [address] [place] [address] Anu Galicia MD [facility] [place] [address] Dyspnea, unspecified type Discharge Disposition: Home Social [...] Procedure Name Priority Date/Time Associated Diagnosis Comments XR CHEST PA AND LATERAL Routine 12/16/2020 11:23 AM EDT Dyspnea, unspecified type documented in this encounter Results * XR Chest PA & Lateral (Generic) [...] who have questions please contact the health care center manager that requested your imaging first. ? Electronically signed by: Fredo Hobson MD, [facility] ([phone]), at 12/16/2020 11:46 AM Narrative 12/16/2020 11:46 [...] patients who have questions please contactthe health care center manager that requested your imaging first. Anu Galicia MD IMG DX ORDERABLES documented in this encounter Visit Diagnoses Diagnosis Dyspnea, unspecified type documented in this encounter Care Teams Pack Out Operator Relationship Specialty Start Date End Date Brittany Saini, CARTRIDGE ASSEMBLER [address] [facility] [place] [address] PCP - General Family Medicine 09/05/20 documented as of this encounter
--- OUTSIDE RECORDS SUMMARY | 2024-04-03 16:04 | XMS_ITS | Encounter Summary ---
Author Organization [facility] Address [facility] [place] [address] Care Team Providers Care Health Care Sanitary Technician Name Role Phone Brittany Saini APRN Primary Care Provider [phone] Encounter Details Date Type Department Care Team (Latest Contact Info) Description 12/16/2020 8:18 AM EDT - 12/16/2020 11:12 AM EDT Hospital Encounter Pulmonology at [facility] [place] [address] Dyspnea, unspecified type Discharge Disposition: Home Social [...] Procedure Name Priority Date/Time Associated Diagnosis Comments COMMON PULMONARY FUNCTION TEST Routine 12/16/2020 9:08 AM EDT Dyspnea, unspecified type documented in this encounter Results * Pulmonary Function Testing [...] / FVC LLN 69 % COMPAS PFT [id number] Actual Pre-BD 1.67 L/s COMPAS PFT [id number] Pre-BD % of Predicted 66 % COMPAS PFT [id number] Predicted 2.52 L/s COMPAS PFT MHT45-94 Pre-BD Z-Score -1.18 COMPAS PFT DLCO Hb [...] type documented in this encounter Care Teams Health Care Sanitary Technician Relationship Specialty Start Date End Date Brittany Saini, GARY [address] [place] [address] PCP - General Family Medicine 09/05/20 documented as of this encounter
--- OUTSIDE RECORDS SUMMARY | 2024-04-03 16:04 | XMS_ITS | Encounter Summary ---
Author Organization [facility] [place] [address] Care Team Providers Care Deputy Sheriff Generalist/Bailiff Name Role Phone Nubia Botello APRN Primary Care Provider + Reason for Visit * Reason Comments Depression 4 week followup Encounter Details Date Type Department Care Team (Late st Contact Info) Description 04/14/2018 10:30 AM EDT Office Visit Internal Medicine at [address] [address] Nubia Botello, WATER COMMISSIONER [facility] [place] [address] Fibromyalgia; Depression, unspecified depression type; Type 2 diabetes mellitus without complication, without long-term current use of insulin; Proteinuria, unspecified type; Hypertension, unspecified type Social History Tobacco Use Types [...] Sign Reading Time Taken Comments Blood Pressure 146/73 04/14/2018 10:02 AM EDT Pulse 86 04/14/2018 10:02 AM EDT Temperature - - Respiratory Rate - - Oxygen Saturation 95% 04/14/2018 10:02 AM EDT Inhaled Oxygen Concentration - - Weight 105.7 kg (233 lb) 04/14/2018 10:02 AM EDT Height 161 cm (5' 3.39) 04/14/2018 10:02 AM EDT reported Body Mass Index 40.77 04/14/2018 10:02 AM EDT documented in this encounter Patient Instructions * Patient Instructions* Nubia Botello APRN - 04/14/2018 10:30 AM EDT Thank you for visiting the [facility] today. Here's a summary of what we discussed : I would like to increase the lisinopril to 40 mg daily. I have sent a new script to your pharmacy. You can take two of the 20 mg tablets to use up the rest of your current prescription. Please stop the wellbutrin. Gabapentin- to increase the dose I would like you to follow the schedule below: DAYS 1-3 : Take 900 mg (3 of of the 300 mg tablets) in the morning and afternoon and then 1200 mg (3 of the 400 mg tablets) in the evening. DAYS 4-6: Take 1200 mg ( 3 of the 400 mg tablets) in the morning and evening, and 900 mg (3 of the 300 mg tablets) in the afternoon. DAY 7 and beyond- Take 1200 mg every 8 hours (3 of the 400 mg tablets) documented in this encounter Progress Notes * Nubia Botello APRN - 04/14/2018 10:30 AM EDT PCP: Nubia Botello APRN Chief Complaint Patient presents with ??? Depression 4 week followup SUBJECTIVE: Nancy Diego is a 52 y.o. female who presents for follow up on her depression. We had a long discussion about depression following the loss of her on December 26, 2017 at her last visit about 2 months ago. She did start pm wellbutrin, but did not want to see a therapist at that time. She was having financial struggles at that time as well. - She has chronic aching and pain. She reports that the gabapentin is not enough. She is having a lot of OA pain in her hands. She is also on cymbalta for pain. Review of Systems Constitutional: Negative for chills and fever. Cardiovascular: Positive for leg swelling. Negative for chest pain and palpitations. Musculoskeletal: Positive for arthralgias, back pain and joint swelling. Allergies Allergen Reactions ??? Latex Skin cracks and bleeds ??? Penicillins Rash Current Outpatient Medications Medication Sig Dispense Refill ??? lisinopril (PRINIVIL;ZESTRIL) 40 mg Tablet Take 1 tablet by mouth daily. 90 tablet 3 ??? gabapentin (NEURONTIN) 400 mg Capsule Take 3 capsules by mouth 3 times daily. 270 capsule 11 ??? DULoxetine (CYMBALTA) 60 mg Capsule, Delayed Release(E.C.) Take 1 capsule by mouth daily. 90 tablet 1 ??? doxycycline monohydrate (MONODOX) 100 mg Capsule Take 1 capsule by mouth 2 times daily. 28 capsule 0 ??? clobetasol (TEMOVATE) 0.05 % Cream Apply topically 2 times daily. 30 g 0 ??? methocarbamol (ROBAXIN) 750 mg Tablet Take 1 tablet by mouth 4 times daily. 60 tablet 0 ??? metFORMIN (GLUCOPHAGE-XR) 500 mg Tablet Sustained Release 24 hr Take 2 tablets by mouth daily. Increase to 2 tablets in the morning and 500 mg at night for 2 weeks, then 2 tablets twice a day with meals. 120 tablet 5 ??? atorvastatin (LIPITOR) 20 mg Tablet Take 1 tablet by mouth daily. 90 tablet 3 ??? cyclobenzaprine (FLEXERIL) 10 mg Tablet Take 1 tablet by mouth 3 times daily as needed for Muscle spasms. (Patient taking differently: Take 10 mg by mouth 3 times daily.) 90 tablet 3 ??? aspirin 81 mg [...] ??? Migraines G43.909 ??? Elevated blood pressure [id number] ??? Body mass index (BMI) of 39.0-39.9 in adult Z68.39 ??? Low back pain M54.5 ??? Type 2 diabetes mellitus without complication, without long-term current use of insulin E11.9 ??? Fatigue R53.83 ??? Fibromyalgia M79.7 ??? Pain in right shoulder M25.511 OBJECTIVE: Vitals: 04/14/18 1002 BP: 146/73 BP Location (NBP): Right arm Patient Position: Sitting BP Cuff Sizes: Large Adult (32-43 cm) Pulse: 86 SpO2: 95% Weight: 105.7 kg (233 lb) Height: 161 cm (5' 3.39) PHYSICAL EXAM: Physical Exam Constitutional: She is oriented to person, place, and time. She appears well- developed and well-nourished. No distress. HENT: Head: Normocephalic and atraumatic. Eyes: Conjunctivae are normal. Cardiovascular: Normal rate and regular rhythm. No murmur heard. Pulmonary/Chest: Effort normal and [...] all orders for this visit: Fibromyalgia - gabapentin (NEURONTIN) 400 mg Capsule; Take 3 capsules by mouth 3 times daily. - will increase the gabapentin dose and continue on the cymbalta. Depression, unspecified depression type - will stop wellbutrin as she does not feel that it is helping. Type 2 diabetes mellitus without complication, without long-term current use of insulin - recheck 3 months Proteinuria, unspecified type - protein increased at last check, will increase lisinopril dose and will help to treat hypertension. Hypertension, unspecified type - lisinopril (PRINIVIL;ZESTRIL) 40 mg Tablet; Take 1 tablet by mouth daily. documented in this encounter Plan of Treatment Not on file documented as of this encounter Visit Diagnoses Diagnosis Fibromyalgia Mylagia and myositis, unspecified Depression, unspecified depression type Type 2 diabetes mellitus without complication, without long-term current use of insulin Proteinuria, unspecified type Hypertension, unspecified type documented in this encounter Care Teams Deputy Sheriff Generalist/Bailiff Relationship Specialty Start Date End Date Nubia Botello APRN [facility] [address] [address] PCP - General 01/16/14 01/28/19 documented as of this encounter
--- OUTSIDE RECORDS SUMMARY | 2024-04-03 16:04 | XMS_ITS | Encounter Summary ---
Author Organization [facility] [place] [address] Care Team Providers Care Coal Tram Driver Name Role Phone Rosmery, Nubia Lopez APRN Primary Care Provider + Reason for Visit * Reason Onset Date Comments Medication Refill 02/10/2018 Encounter Details Date Type Department Care Team (Late st Contact Info) Description 02/10/2018 Refill Internal Medicine at [address] [address] Chhaya Cee, JAYSON Social History Tobacco Use [...] on filedocumented in this encounter Care Teams Coal Tram Driver Relationship Specialty Start Date End Date Nubia Botello APRN [facility] [place] [address] PCP - General 01/16/14 01/28/19 documented as of this encounter
--- OUTSIDE RECORDS SUMMARY | 2024-04-03 16:04 | XMS_ITS | Encounter Summary ---
Author Organization [facility] [place] [address] Care Team Providers Care Laundromat Manager Name Role Phone Brittany Saini APRN Primary Care Provider Encounter Details Date Type Department Care Team (Late st Contact Info) Description 03/01/2021 Telephone Tobacco Treatment at [place] [address] Marcelle Arnold Social History Tobacco Use Types [...] * Telephone Encounter - Marcelle Arnold - 03/01/2021 1:10 PM EDT Ms. Diego reports putting the patch on yesterday and then taking it off after 5 hours. She is not ready to give up yet. She is going to try again tomorrow. documented in this encounter Plan of Treatment Not on file documented as of this encounter Visit Diagnoses Not on filedocumented in this encounter Care Teams Laundromat Manager Relationship Specialty Start Date End Date Brittany Saini APRN [address] [place] [address] PCP - General Family Medicine 09/05/20 documented as of this encounter
--- OUTSIDE RECORDS SUMMARY | 2024-04-03 16:04 | XMS_ITS | Encounter Summary ---
Author Organization [facility] [place] [address] Care Team Providers Care Nurse Supervisor Name Role Phone Rosmery, Nubia Lopez APRN Primary Care Provider + Encounter Details Date Type Department Care Team (Late st Contact Info) Description 10/24/2018 Telephone Internal Medicine at [address] [address] Arminda Pope, RN Social History Tobacco Use Types Packs/Day [...] encounter Miscellaneous Notes * Telephone Encounter - Oscar Pope, RN - 10/24/2018 2:59 PM EDT Phoned patient no answer, unable to leave message, patient needs nurse appointment for oxygen testing, required for continued use of oxygen per [facility] documented in this encounter Plan of Treatment Not on file documented as of this encounter Visit Diagnoses Not on filedocumented in this encounter Care Teams Nurse Supervisor Relationship Specialty Start Date End Date Nubia Botello APRN [facility] [address] [facility] [place] [address] PCP - General 01/16/14 01/28/19 documented as of this encounter
--- OUTSIDE RECORDS SUMMARY | 2024-04-03 16:04 | XMS_ITS | Encounter Summary ---
Author Organization [place] [address] Care Team Providers Care Early Childhood Education Coordinator Name Role Phone Parveen Brittany VEGA Primary Care Provider [phone] Encounter Details Date Type Department Care Team (Late st Contact Info) Description 05/26/2021 Telephone [place] [phone] Serenity Hicks Social History Tobacco Use Types Packs/Day Years [...] on filedocumented in this encounter Care Teams Early Childhood Education Coordinator Relationship Specialty Start Date End Date Brittany Saini APRN [address] [place] [address] PCP - General Family Medicine 09/05/20 documented as of this encounter
--- OUTSIDE RECORDS SUMMARY | 2024-04-03 16:05 | XMS_ITS | Encounter Summary ---
Author Organization [facility] [place] [address] Care Team Providers Care Pm Technician Name Role Phone Nubia Botello APRN Primary Care Provider + Reason for Visit * Reason Comments Generalized Body Aches all over body.... . Encounter Details Date Type Department Care Team (Late st Contact Info) Description 05/28/2017 10:00 AM EST Office Visit Internal Medicine at [address] [address] Nubia Botello APRN [facility] [place] [address] Fibromyalgia; Type 2 diabetes mellitus without complication, without long-term current use of insulin Social History Tobacco Use Types Packs/Day Years [...] Sign Reading Time Taken Comments Blood Pressure 147/72 05/28/2017 9:59 AM EST Pulse 83 05/28/2017 9:59 AM EST Temperature - - Respiratory Rate - - Oxygen Saturation 99% 05/28/2017 9:59 AM EST Inhaled Oxygen Concentration - - Weight 99.2 kg (218 lb 12.8 oz) 05/28/2017 9:59 AM EST Height 163.8 cm (5' 4.5) 05/28/2017 9:59 AM EST Body Mass Index 36.98 05/28/2017 9:59 AM EST documented in this encounter Progress Notes * Nubia Botello APRN - 05/28/2017 10:00 AM EST PCP: Nubia Botello APRN Chief Complaint Patient presents with ??? Generalized Body Aches all over body..... SUBJECTIVE: Nancy Diego is a 51 y.o. female who presents for chronic pain and diabetes follow up. Fibromyalgia- patient is on flexeril, cymbalta and gabapentin and oxycodone for her fibromyalgia. Back pain- she reports that she thinks she threw out her back yesterday. She reports that yesterday she was having severe pain that radiated from her tailbone and up to her neck. She reports that pain was severe, but she still went to work and then left early. She reports that she was only able to work about 4 hours without severe pain. She reports that after she sat down it was hard to get back up. She says that her legs were weak. She had pain that radiated all over. - she feels that her hands are swollen and her feet swell as well. She has pain on the bottom of her feet. She has some tingling in her fingers. She does not take the oxycodone or flexeril before or during work. She reports that the oxycodone makes her groggy and puts her to sleep. She states that she is taking about 4 per day when she is not working. - today she still feels that she is in a lot of pain. It hurt to start to walk. She was walking bent forward. Lab Results Component Value Date HA1C 7.0 (A) 03/08/2017 Review of Systems Allergies Allergen Reactions ??? Latex Skin cracks and bleeds ??? Penicillins Rash Current Outpatient Prescriptions Medication Sig Dispense Refill ??? oxyCODONE (ROXICODONE) 5 mg Tablet Take 1 tablet by mouth every 6 hours as needed for Pain. 28 tablet 0 ??? oxyCODONE (ROXICODONE) 5 mg Tablet Take 1 tablet by mouth every 6 hours as needed for Pain. Mayfill on 05/09/17. 84 tablet 0 ??? cyclobenzaprine (FLEXERIL) 10 mg Tablet Take 1 tablet by mouth 3 times daily as needed for Muscle spasms. 90 tablet 3 ??? diclofenac (VOLTAREN) 1 % Gel Apply 2 g topically 4 times daily. 100 g 3 ??? cholestyramine (QUESTRAN) 4 gram Powder in Packet Take 1 packet by mouth daily. 60 each 12 ??? DULoxetine (CYMBALTA) 20 mg Capsule, Delayed Release(E.C.) TAKE 2 CAPSULES BY MOUTH DAILY. MAY INCREASE TO 60MG DAILY AFTER ONE WEEK. 180 capsule 3 ??? lisinopril (PRINIVIL;ZESTRIL) 20 mg Tablet Take 1 tablet by mouth daily. 90 tablet 3 ??? metFORMIN (GLUCOPHAGE-XR) 500 mg Tablet Sustained Release 24 hr Take 2 tablets by mouth daily. 60 tablet 5 ??? gabapentin (NEURONTIN) 300 mg Capsule Take 3 capsules by mouth 3 times daily. 810 capsule 3 ??? lancets (FREESTYLE LANCETS) 28 gauge [...] Use with spacer 1 Inhaler 1 ??? clobetasol (TEMOVATE) 0.05 % Cream Apply topically 2 times daily. 30 g 0 ??? acetaminophen (TYLENOL) 500 mg tablet Take 1,000 mg by mouth every 6 hours as needed. No current facility-administered medications for this visit. Patient Active Problem List Diagnosis Code ??? Depression F32.9 ??? Irritable bowel syndrome K58.9 ??? GERD (gastroesophageal reflux disease) K21.9 ??? Peptic ulcer disease K27.9 ??? Migraines G43.909 ??? Elevated blood pressure [id number] ??? Body mass index (BMI) of 39.0-39.9 in adult Z68.39 ??? Low back pain M54.5 ??? Type 2 diabetes mellitus without complication, without long-term current use of insulin E11.9 ??? Fatigue R53.83 OBJECTIVE: Vitals: 05/28/17 0959 BP: 147/72 Pulse: 83 SpO2: 99% Weight: 99.2 kg (218 lb 12.8 oz) Height: 163.8 cm (5' 4.5) PHYSICAL EXAM: Physical Exam Constitutional: She is [...] & PLAN: Nancy was seen today for generalized body aches. Diagnoses and all orders for this visit: Fibromyalgia - CBC (with Diff); Future - Comprehensive metabolic panel (non-fasting); Future - Sedimentation rate; Future - CRP, acute inflammation; Future - CBC (with Diff) - Comprehensive metabolic panel (non-fasting) - Sedimentation rate - CRP, acute inflammation - Hemogram - Differential, Automated - patient is having significant pain, she has seen rheumatology and is on flexeril, oxycodone, gabapentin and cymbalta for pain without improvement. Recommended referral to pain center, but she is not interested in it. Discussed the importance of exercise and PT, but she is not interested at this time because of her pain. She would consider in the future. Will give her a note to keep her out of work for the next week. Will have her continue on current medications. We did discuss that oxy is make her more sleepy than helping with pain. May consider it only at night in the future. - f/u in about a month or sooner if symptoms get worse. Type 2 diabetes mellitus without complication, without long-term current use of insulin - POCT glycated hemoglobin, total (HA1C) Metabolic syndrome: - will have her start lipitor and aspirin daily - a1c is good today at 6.8, will continue on metformin at current dose - atorvastatin (LIPITOR) 20 mg Tablet; Take 1 tablet by mouth daily. - aspirin 81 mg Tablet, Delayed Release (E.C.); Take 1 tablet by mouth daily. - oxyCODONE (ROXICODONE) 5 mg Tablet; Take 1 tablet by mouth every 6 hours as needed for Pain. May fill on 05/30/17. documented in this encounter Plan of Treatment Not on file documented as of this encounter Procedures Procedure Name Priority Date/Time Associated Diagnosis Comments CRP, ACUTE INFLAMMATION Routine 05/28/2017 11:16 AM EST Fibromyalgia HEMOGRAM Routine 05/28/2017 11:16 AM EST Fibromyalgia DIFFERENTIAL, AUTOMATED Routine 05/28/2017 11:16 AM EST Fibromyalgia SEDIMENTATION RATE Routine 05/28/2017 11 :16 AM EST Fibromyalgia CBC (WITH DIFF) Routine 05/28/2017 11:16 AM EST Fibromyalgia COMPREHENSIVE METABOLIC PANEL Routine 05/28/2017 11:16 AM EST Fibromyalgia POCT GLYCATED HEMOGLOBIN, TOTAL (HA1C) Routine 05/28/2017 11:00 AM EST Type 2 diabetes mellitus without complication, without long-term current use of insulin documented in this encounter Results * (ABNORMAL) Differential, Automated (05/28/2017 11:16 AM EST) Neutrophil % 56.1 % [facility] Neutrophil Absolute 6.43(H) 1.70 - 6.10 x10(3)/mc L [facility] Lymph % 36.5 % [facility] Lymphocytes Abs 4.2(H) 0.9 - 3.2 x10(3)/mc L [facility] Monocyte % 4.6 % [facility] Monocyte Abs 0.5 0.3 - 0.9 x10(3)/mc L [facility] Eos % 1.7 % [facility] Eosinophils Abs 0.2 0.0 - 0.4 x10(3)/mc L [facility] Basophil % 0.8 % [facility] Baso Absolute 0.1 0.0 - 0.1 x10(3)/[facility] Immature Gran % 0.30 % [facility] Comment: Immature granulocytes(IG's)percentage and absolute count will include metamyelocytes, myelocytes, and promyelocytes. Blood smears from CBCs yielding IG's will be scanned manually for concordance. If this scan disagrees with the automated IG or if promyelocytes are noted, a manual differential will be performed. Immature Gran Absolute 0.03 0.00 - 0.04 x10(3)/[facility] Blood specimen (specimen) 05/28/2017 11:16 AM EST 05/28/2017 6:21 PM EST Narrative Resulting Agency Comment Spec In Lab Nubia Botello APRN HEMATOLOGY ORDER RODNEY [facility] [place] [address] * (ABNORMAL) Hemogram (05/28/2017 11:16 AM EST) White Blood Cell 11.5(H) 4.0 - 9.5 x10(3)/[facility] Red Blood Cell 5.38(H) 4.00 - 5.21 x10(6)/[facility] Hemoglobin 15.4 11.7 - 15.5 gm/dL [facility] Hematocrit 48.1(H) 35.7 - 45.8 % [facility] Mean Cell Volume 89.4 82.6 - 94.4 fL [facility] Mean Cell Hemoglobin 28.6 27.1 - 32.0 pg [facility] Mean Cell Hemoglobin Concentration 32.0 31.7 - 35.0 gm/dL [facility] Platelet 274 145 - 357 x10(3)/[facility] RDW Standard Deviation 43.9 37.0 - 46.0 fL [facility] RDW coefficient of variation 13.4 11.5 - 14.1 % [facility] Mean Platelet Volume 10.6 7.6 - 12.9 fL [facility] NRBC% auto 0.0 % [facility] NRBC Absolute 0.000 0.000 - 0.000 x10(3)/mc L [facility] Blood specimen (specimen) 05/28/2017 11:16 AM EST 05/28/2017 6:21 PM EST Narrative Resulting Agency Comment Spec In Lab Nubia Botello APRN HEMATOLOGY ORDER RODNEY Performing Organization Address [facility]/ZIP Co de Phone Number [facility] [place] [address] * (ABNORMAL) CRP, acute inflammation (05/28/2017 11:16 AM EST) C-Reactive Protein 42.4(H) <=4.9 mg/L [facility] Blood specimen (specimen) 05/28/2017 11:16 AM EST 05/28/2017 6:21 PM EST Narrative Resulting Agency Comment Spec In Lab Nubia Botello APRN CHEMISTRY ORDERA BLES Performing Organization Address [facility] Co de Phone Number [facility] [place] [address] * Sedimentation rate (05/28/2017 11:16 AM EST) Sedimentation Rate Automated 18 0 - 20 mm/hr [facility] Blood specimen (specimen) 05/28/2017 11:16 AM EST 05/28/2017 6:21 PM EST Narrative Resulting Agency Comment Spec In Lab Nubia Botello APRN HEMATOLOGY ORDER RODNEY Performing Organization Address City/[facility]/ZIP Co de Phone Number [facility] [place] [address] * (ABNORMAL) Comprehensive metabolic panel (non-fasting) (05/28/2017 11:16 AM EST) Glucose 109 65 - 199 mg/dL [facility] Comment:Diabetes: >=200 mg/d L plus symptoms Blood Urea Nitrogen 11 8 - 18 mg/dL [facility] Creatinine 0.96 0.70 - 1.20 mg/dL [facility] Sodium 140 135 - 145 mmol/L [facility] Potassium 4.6 3.5 - 5.0 mmol/L [facility] Comment: Please note: ??Patients with WBC >100,000 may have falsely elevated Potassium levels. ??For accurate Potassium quantification in these patients send serum separator tube (gold top) for subsequent determinations. ??Contact the Clinical Chemistry Laboratory if there are any questions. Chloride 102 98 - 107 mmol/L [facility] Carbon Dioxide 28 22 - 31 mmol/L [facility] Anion Gap 10 5 - 15 mmol/L [facility] Calcium 9.2 8.5 - 10.5 mg/dL [facility] Protein, Total 8.2(H) 6.1 - 8.0 gm/dL [facility] Albumin 4.0 3.2 - 5.2 gm/dL [facility] Aspartate Aminotransferase 28 0 - 30 unit/L [facility] Alanine Aminotransferase 24 0 - 30 unit/L [facility] Alkaline Phosphatase 132(H) 40 - 104 unit/L [facility] Bilirubin, Total 0.7 0.2 - 1.3 mg/dL [facility] Est Glomerular Filtration Rate >60 >=60 [facility] Comment: The reported eGFR should be multiplied by 1.2 for patients. The MDRD is not an appropriate measure of renal function for patients with body mass extremes or in patients with acute kidney failure. http://[employer].com.[employer]Metrix/DHnkdep http://[employer]/DHMCnkf Blood specimen (specimen) 05/28/2017 11:16 AM EST 05/28/2017 6:21 PM EST Narrative Resulting Agency Comment Spec In Lab Nubia Botello APRN CHEMISTRY ORDERA BLES [facility] [place] [address] * (ABNORMAL) POCT glycated hemoglobin, total (HA1C) (05/28/2017 11:00 AM EST) Hemoglobin A1C, POC 6.8(A) 4.3 - 5.6 % 05/28/2017 11:0 0 AM EST Nubia Botello APRN POINT OF CARE TE ST ORDERABLES documented in this encounter Visit Diagnoses Diagnosis Fibromyalgia Mylagia and myositis, unspecified Type 2 diabetes mellitus without complication, without long-term current use of insulin documented in this encounter Care Teams Pm Technician Relationship Specialty Start Date End Date Nuiba Botello APRN [facility] [address] [address] PCP - General 01/16/14 01/28/19 documented as of this encounter
--- OUTSIDE RECORDS SUMMARY | 2024-04-03 16:05 | XMS_ITS | Encounter Summary ---
Author Organization [facility] [place] [address] Care Team Providers Care Software Engineering Analyst Name Role Phone Rosmery Nubai Lopez APRN Primary Care Provider + Encounter Details Date Type Department Care Team (Late st Contact Info) Description 02/19/2017 Telephone Internal Medicine at [address] [address] Viky Robbins Social History Tobacco Use Types [...] on filedocumented in this encounter Care Teams Software Engineering Analyst Relationship Specialty Start Date End Date Nubia Botello APRN [facility] [place] [address] PCP - General 01/16/14 01/28/19 documented as of this encounter
--- OUTSIDE RECORDS SUMMARY | 2024-04-03 16:05 | XMS_ITS | Encounter Summary ---
Author Organization [facility] [place] [address] Care Team Providers Care Applications Sales Representative Name Role Phone Nubia Botello APRN Primary Care Provider + Reason for Referral * Consultation (Urgent) - Duplicate Referral Specialty Diagnoses / Procedures Referred By Dennis daniels Referred To Contact Gastroenterology Diagnoses BRBPR (bright red blood per rectum) Nubia Botello APRN [facility] [address] [place] [address] [facility] [address] [place] [phone] Referral ID Status Reason Start Date Expiration Date Visits Requested Visits Authorized [id number] Duplicate Referral Specialty Service Requested 01/28/2017 01/28/2018 1 1 * Consultation (Urgent) - Closed Specialty Diagnoses / Procedures Referred By Dennis daniels Referred To Contact Gastroenterology Diagnoses BRBPR (bright red blood per rectum) Nubia Botello DISPATCH CLERK [facility] [address] [place] [address] [facility] End[facility] [address] [place] [phone] Referral ID Status Reason Start Date Expiration Date V isits Requested Visits Authorized [id number] Closed Consult, Test & Treat 01/28/2017 01/28/2018 1 1 Reason for Visit * Reason Comments Rectal Bleeding x 1 week and1/2, hea vy bleeding getting darker blood. Other blood clots size of half dollar. cramps with larger clotts Fatigue Arm Pain numb fingers Dizziness Encounter Details Date Type Department Care Team (Late st Contact Info) Description 01/28/2017 10:00 AM EDT Office Visit Internal Medicine at [address] [address] Nubia Botello APRN [facility] [place] [address] Bilateral hand numbness; BRBPR (bright red blood per rectum); Other chronic pain; Elevated LFTs Social History Tobacco Use Types Packs/Day Years [...] Sign Reading Time Taken Comments Blood Pressure 139/92 01/28/2017 10:05 AM EDT Pulse 93 01/28/2017 10:05 AM EDT Temperature - - Respiratory Rate - - Oxygen Saturation 97% 01/28/2017 9:56 AM EDT Inhaled Oxygen Concentration - - Weight 106.1 kg (233 lb 12.8 oz) 01/28/2017 9:56 AM EDT Height 159.8 cm (5' 2.9) 01/28/2017 9:56 AM EDT Body Mass Index 41.55 01/28/2017 9:56 AM EDT documented in this encounter Progress Notes * Nubia Botello APRN - 01/28/2017 10:00 AM EDT PCP: Nubia Botello APRN Chief Complaint Patient presents with ??? Rectal Bleeding x 1 week and1/2, heavy bleeding getting darker blood. ??? Other blood clots size of half dollar. cramps with larger clotts ??? Fatigue ??? Arm Pain numb fingers ??? Dizziness SUBJECTIVE: Nancy Diego is a 51 y.o. female who presents for rectal bleeding, dizziness, numbness in hands andarthralgia and low back pain. Dizziness- she feels that she cannot walk in a straight line, she walks to the side one time. She reports that it is worse when she first gets out of bed. She has a walkway from the bed to the door. She notices it with getting up out of bed. Does not matter her position. Worse with turning over in bed or with turning her head. Not worse with turning to right or the left. Left hand numbness- Numbness in her 4th and 5th fingers. It has started to spread to her middle finger of her hand. She reports that they don't tingle, but go numb and then she cannot pick anything up. She has pain in her elbow and her hand. She has some left shoulder pain as well and radiates to her neck. Right 5th finger is numb and she has shoulder pain as well. Low back pain- difficulty to get out of her chair. She sometimes needs help to get out of the chair. She reports that it is difficulty to walk. Pain with driving. - she is not able to carry in groceries. Review of Systems Allergies Allergen Reactions ??? Latex Skin cracks and bleeds ??? Penicillins Rash Current Outpatient Prescriptions Medication Sig Dispense Refill ??? metFORMIN (GLUCOPHAGE-XR) 500 mg Tablet Sustained [...] for Muscle spasms. 90 tablet 3 ??? DULoxetine (CYMBALTA) 20 mg Capsule, Delayed Release(E.C.) Take 2 capsules by mouth daily. May increase to 60 mg daily after one week. Indications: Fibromyalgia 60 tablet 11 ??? albuterol (PROAIR HFA) 90 mcg/actuation HFA Aerosol Inhaler Inhale 2 puffs into the lungs every4 hours as needed for Wheezing. Use with spacer 1 Inhaler 1 ??? clobetasol (TEMOVATE) 0.05 % Cream Apply topically 2 times daily. 30 g 0 ??? ibuprofen (ADVIL;MOTRIN) 800 mg Tablet Take 1 tablet by mouth every 8 hours as needed. 30 tablet 0 ??? acetaminophen (TYLENOL) 500 mg tablet Take 1,000 mg by mouth every 6 hours as needed. No current facility-administered medications for this visit. Patient Active Problem List Diagnosis Code ??? Depression F32.9 ??? Irritable bowel syndrome K58.9 ??? GERD (gastroesophageal reflux disease) K21.9 ??? Peptic ulcer disease K27.9 ??? Migraines G43.909 ??? Elevated blood pressure [id number] ??? Body mass index (BMI) of 39.0-39.9 in adult Z68.39 ??? Low back pain M54.5 ??? Type 2 diabetes mellitus without complication, without long-term current use of insulin E11.9 ??? Fatigue R53.83 OBJECTIVE: Vitals: 01/28/17 0956 01/28/17 0959 01/28/17 1005 BP: 156/89 156/79 (!) 139/92 Patient Position: Lying Sitting Standing Pulse: 84 86 93 SpO2: 97% Weight: (!) 106.1 kg (233 lb 12.8 oz) Height: 159.8 cm (5' 2.9) PHYSICAL EXAM: Physical Exam Constitutional: She is oriented to person, place, and time. She appears well- developed. She appearsdistressed (painful to change positions). HENT: Head: Normocephalic and atraumatic. Pulmonary/Chest: Effort normal and breath sounds normal. Abdominal: Rotund, tender to palpation. Genitourinary: Rectal exam shows external hemorrhoid. Rectal exam shows no fissure and no mass. Musculoskeletal: Lumbar back: She exhibits decreased range of motion (unable to forward flex beyond 15 degrees without pain. ). Pain with backward flexion and did not even attempt. Pain with bilateral rotation. Unable to lateral bend without pain bilaterally. Antalgic gait. Neurological: She is alert and oriented to person, place, and time. Skin: Skin is warm and dry. Vitals reviewed. ASSESSMENT & PLAN: Nancy was seen today for rectal bleeding, other, fatigue, arm pain and dizziness. Diagnoses and all orders for this visit: Bilateral hand numbness - Sedimentation rate; Future - CRP, acute inflammation; Future - Sedimentation rate - CRP, acute inflammation - will repeat inflammatory markers with her change in symptoms and worsening pain. BRBPR (bright red blood per rectum) - Referral to Gastroenterology - Referral to Gastroenterology - CBC (with Diff); Future - CBC (with Diff) - Hemogram - Differential, Automated - patient reporting significant bleeding with large clots that are not improving. She had colonoscopy less than a year ago. - anoscopy in office today was unremarkable. - will refer to GI for further evaluation of symptoms. Other chronic pain - CMP w/fasting Glucose; Future - CMP w/fasting Glucose - narcotic contract signed with patient today. - will check labs today, she has had elevated inflammatory markers in the past and will repeat. - oxyCODONE (ROXICODONE) 5 mg Tablet; Take 1 tablet by mouth every 8 hours as needed for Pain. Elevated LFTs - CMP w/fasting Glucose; Future - CMP w/fasting Glucose documented in this encounter Plan of Treatment Scheduled Referrals Name Type Priority Associated Diagnoses Order Schedule Referral to Gastroenterology Outpatient Referral Routine BRBPR (bright red blood per rectum) Ordered: 01/28/2017 Referral to Gastroenterology Outpatient Referral Routine BRBPR (bright red blood per rectum) Ordered: 01/28/2017 documented as of this encounter Procedures Procedure Name Priority Date/Time Associated Diagnosis Comments CRP, ACUTE INFLAMMATION Routine 01/28/2017 11:40 AM EDT Bilateral hand numbness CMP W/FASTING GLUCOSE Routine 01/28/2017 11:40 AM EDT Other chronic pain Elevated LFTs HEMOGRAM Routine 01/28/2017 11:40 AM EDT BRBPR (bright red blood per rectum) DIFFERENTIAL, AUTOMATED Routine 01/28/2017 11:40 AM EDT BRBPR (bright red blood per rectum) IRON AND TIBC Routine 01/28/2017 11:40 AM EDT SEDIMENTATION RATE Routine 01/28/2017 11 :40 AM EDT Bilateral hand numbness CBC (WITH DIFF) Routine 01/28/2017 11:40 AM EDT BRBPR (bright red blood per rectum) documented in this encounter Results * Iron and TIBC (01/28/2017 11:40 AM EDT) [facility] Iron 67 30 - 150 mcg/dL [facility] TIBC 332 250 - 450 mcg/dL [facility] Iron Saturation 20 20 - 50 % [facility] Blood specimen (specimen) Venous Draw / Unknown 01/28/2017 11:40 AM EDT 01/28/2017 6:32 PM EDT Narrative Resulting Agency Comment Spec In Lab Nubia Botello DISPATCH CLERK CHEMISTRY ORDERA BLES Performing Organization Address City/State/[facility] Co de Phone Number [facility] [place] [address] * (ABNORMAL) Differential, Automated (01/28/2017 11:40 AM EDT) [facility] Neutrophil % 56.1 % [facility] Neutrophil Absolute 6.62(H) 1.70 - 6.10 x10(3)/mc L [facility] Lymph % 33.8 % [facility] Lymphocytes Abs 4.0(H) 0.9 - 3.2 x10(3)/mc L [facility] Monocyte % 5.8 % [facility] Monocyte Abs 0.7 0.3 - 0.9 x10(3)/mc L [facility] Eos % 2.5 % [facility] Eosinophils Abs 0.3 0.0 - 0.4 x10(3)/mc L [facility] Basophil % 1.0 % [facility] Baso Absolute 0.1 0.0 - 0.1 x10(3)/[facility] Immature Gran % 0.80 % [facility] Comment: Immature granulocytes(IG's)percentage and absolute count will include metamyelocytes, myelocytes, and promyelocytes. Blood smears from CBCs yielding IG's will be scanned manually for concordance. If this scan disagrees with the automated IG or if promyelocytes are noted, a manual differential will be performed. Immature Gran Absolute 0.09(H) 0.00 - 0.04 x10(3)/[facility] Blood specimen (specimen) 01/28/2017 11:40 AM EDT 01/28/2017 6:28 PM EDT Narrative Resulting Agency Comment Spec In Lab Nubia Botello APRN HEMATOLOGY ORDER RODNEY [facility] [place] [address] * (ABNORMAL) Hemogram (01/28/2017 11:40 AM EDT) White Blood Cell 11.8(H) 4.0 - 9.5 x10(3)/[facility] Red Blood Cell 5.12 4.00 - 5.21 x10(6)/[facility] Hemoglobin 15.4 11.7 - 15.5 gm/dL [facility] Hematocrit 44.5 35.7 - 45.8 % [facility] Mean Cell Volume 86.9 82.6 - 94.4 fL [facility] Mean Cell Hemoglobin 30.1 27.1 - 32.0 pg [facility] Mean Cell Hemoglobin Concentration 34.6 31.7 - 35.0 gm/dL [facility] Platelet 315 145 - 357 x10(3)/ L [facility] RDW Standard Deviation 42.2 37.0 - 46.0 fL [facility] RDW coefficient of variation 13.4 11.5 - 14.1 % [facility] Mean Platelet Volume 10.3 7.6 - 12.9 fL [facility] NRBC% auto 0.0 % [facility] NRBC Absolute 0.000 0.000 - 0.000 x10(3)/mc L [facility] Blood specimen (specimen) 01/28/2017 11:40 AM EDT 01/28/2017 6:28 PM EDT Narrative Resulting Agency Comment Spec In Lab Nubia Botello DISPATCH CLERK HEMATOLOGY ORDER RODNEY Performing Organization Address City/[facility]/ZIP Co de Phone Number [facility] [place] [address] * (ABNORMAL) CRP, acute inflammation (01/28/2017 11:40 AM EDT) C-Reactive Protein 52.9(H) <=4.9 mg/L [facility] Blood specimen (specimen) 01/28/2017 11:40 AM EDT 01/28/2017 6:28 PM EDT Narrative Resulting Agency Comment Spec In Lab Nubia Botello APRN CHEMISTRY ORDERA BLES Performing Organization Address [facility] Co de Phone Number [facility] [place] [address] * (ABNORMAL) Sedimentation rate (01/28/2017 11:40 AM EDT) Sedimentation Rate Automated 38(H) 0 - 20 mm/hr [facility] Blood specimen (specimen) 01/28/2017 11:40 AM EDT 01/28/2017 6:28 PM EDT Narrative Resulting Agency Comment Spec In Lab Nubia Botello APRN HEMATOLOGY ORDER RODNEY Performing Organization Address City/[facility]/ZIP Co de Phone Number [facility] [place] [address] * (ABNORMAL) CMP w/fasting Glucose (01/28/2017 11:40 AM EDT) Glucose Fasting 113(H) 65 - 99 mg/dL [facility] Comment: ?Fasting* Glucose Interpretive Criteria Normal ?65-99 mg/dL Impaired Fasting glucose ?100-125 mg/dL Consistent with Diabetes Mellitus ? >or= 126 mg/dL *Fasting is defined as no caloric intake for at least 8 hours In the absence of unequivocal hyperglycemia a plasma glucose value of >or= 126 mg/dL should be repeated on a subsequent day. Diagnosis and Classification of Diabetes Mellitus, Position Statement from the [place] [employer]. ??Diabetes Care, Volume 33, Supplement 1, Jun 2009 Blood Urea Nitrogen 12 8 - 18 mg/dL [facility] Creatinine 0.34(L) 0.70 - 1.20 mg/dL [facility] Comment: Please note that the pediatric reference intervals supplied above were not validated at [facility]. Results from pediatric patients should be interpreted in conjunction to the patient's age, height and muscle mass. Sodium 141 135 - 145 mmol/L [facility] Potassium 3.5 3.5 - 5.0 mmol/L [facility] Comment: Please note: ??Patients with WBC >100,000 may have falsely elevated Potassium levels. ??For accurate Potassium quantification in these patients send serum separator tube (gold top) for subsequent determinations. ??Contact the Clinical Chemistry Laboratory if there are any questions. Chloride 99 98 - 107 mmol/L [facility] Carbon Dioxide 27 22 - 31 mmol/L [facility] Anion Gap 15 5 - 15 mmol/L [facility] Calcium 9.5 8.5 - 10.5 mg/dL [facility] Protein, Total 8.1(H) 6.1 - 8.0 gm/dL [facility] Albumin 4.0 3.2 - 5.2 gm/dL [facility] Aspartate Aminotransferase 92(H) 0 - 30 unit/L [facility] Alanine Aminotransferase 54(H) 0 - 30 unit/L [facility] Alkaline Phosphatase 150(H) 40 - 104 unit/L [facility] Bilirubin, Total 0.7 0.2 - 1.3 mg/dL [facility] Est Glomerular Filtration Rate >60 >=60 [facility] Comment: This estimated GFR (eGFR) value was calculated using the MDRD equation which has been validated on patients between the ages of 18 and 70. The MDRD should not be used to assess kidney function in patients < 18 years of age or in patients with extremes of body mass, or in patients with acute kidney failure. This value should be multiplied by 1.2 for patients. For further information please copy and paste the following links into your internet browser. http://BasisCode/DHnkdep [email or web address]://BasisCode/DHMCnkf Blood specimen (specimen) 01/28/2017 11:40 AM EDT 01/28/2017 6:28 PM EDT Narrative Resulting Agency Comment Spec In Lab Nubia Botello APRN CHEMISTRY ORDERA BLES [facility] [place] [address] documented in this encounter Visit Diagnoses Diagnosis Bilateral hand numbness Disturbance of skin sensation BRBPR (bright red blood per rectum) Hemorrhage of rectum and anus Other chronic pain Elevated LFTs Other abnormal blood chemistry documented in this encounter Care Teams Applications Sales Representative Relationship Specialty Start Date End Date Nubia Botello APRN [facility] [address] [place] [address] PCP - General 01/16/14 01/28/19 documented as of this encounter
--- OUTSIDE RECORDS SUMMARY | 2024-04-03 16:05 | XMS_ITS | Encounter Summary ---
Author Organization [facility] [place] [address] Care Team Providers Care Professional Development Instructor Name Role Phone Rosmery Nubia Lopez APRN Primary Care Provider + Reason for Visit * Reason Comments Diabetes 2-3 month follow up. Pt reports she needs a refill on her Oxycodone. Encounter Details Date Type Department Care Team (Late st Contact Info) Description 03/08/2017 10:20 AM EDT Office Visit Internal Medicine at [address] [address] Nubia Botello APRN [facility] [place] [address] Type 2 diabetes mellitus without complication, without long-term current use of insulin (Primary Dx); Medication management; Proteinuria, unspecified type Social History Tobacco Use Types [...] Sign Reading Time Taken Comments Blood Pressure 168/89 03/08/2017 10:11 AM EDT Pulse 89 03/08/2017 10:11 AM EDT Temperature 36.9 ??C (98.5 ??F) 03/08/2017 1 0:11 AM EDT Respiratory Rate 18 03/08/2017 10:1 1 AM EDT Oxygen Saturation 97% 03/08/2017 10: 11 AM EDT Inhaled Oxygen Concentration - - Weight 102.6 kg (226 lb 3.2 oz) 017 10:11 AM EDT Height - - Body Mass Index 38.83 02/05/2017 8:51 AM EDT documented in this encounter Progress Notes * Chhaya Cee MA - 03/08/2017 10:20 AM EDT When did you last take your prescribed opiate? 2 weeks ago Have you taken anything else not prescribed? NO Time of urine collection: 11:05 a.m. 03/08/2017 * Nubia Botello APRN - 03/08/2017 10:20 AM EDT PCP: Nubia Botello APRN Chief Complaint Patient presents with ??? Diabetes 2-3 month follow up. Pt reports she needs a refill on her Oxycodone. SUBJECTIVE: Nancy Diego is a 51 y.o. female who presents for follow up on her pain and diabetes. Join pain- all of her joints are painful. She now has more pain that is radiating from her shoulders and into her neck. She has been taking excedrin for pain and not tylenol or advil. She is using itfor headaches. She reports that the excedrin will ease the pain, but not take it all away. - she reports that she had increased oxycodone to two tablets. She reports that - she reports that she is now out of the oxycodone for the last 2-3 weeks. Review of Systems Constitutional: Positive for fatigue. Negative for chills and fever. Cardiovascular: Negative for chest pain and palpitations. Musculoskeletal: Positive for arthralgias, back pain and gait problem. Allergies Allergen Reactions ??? Latex Skin cracks and bleeds ??? Penicillins Rash Current Outpatient Prescriptions Medication Sig Dispense Refill ??? wxzfjql-znbckgemiazyp-vypycyrq (EXCEDRIN MIGRAINE) 250-250-65 mg Tablet Take 1 tablet by mouth every 6 hours as needed for Pain. ??? oxyCODONE (ROXICODONE) 5 mg Tablet Take 1 tablet by mouth every 8 hours as needed for Pain. 84 tablet 0 ??? metFORMIN (GLUCOPHAGE-XR) 500 mg [...] ??? Migraines G43.909 ??? Elevated blood pressure [id number] ??? Body mass index (BMI) of 39.0-39.9 in adult Z68.39 ??? Low back pain M54.5 ??? Type 2 diabetes mellitus without complication, without long-term current use of insulin E11.9 ??? Fatigue R53.83 OBJECTIVE: Vitals: 03/08/17 1011 BP: 168/89 Pulse: 89 Resp: 18 Temp: 36.9 ??C (98.5 ??F) TempSrc: Oral SpO2: 97% Weight: (!) 102.6 kg (226 lb 3.2 oz) PHYSICAL EXAM: Physical Exam Constitutional: She is oriented to person, place, and time. She appears well- developed and well-nourished. No distress. HENT: Head: Normocephalic and atraumatic. Eyes: Conjunctivae are normal. No scleral icterus. Cardiovascular: Normal rate, regular rhythm and normal [...] of insulin - POCT glycated hemoglobin, total (HA1C); Standing - Urinalysis with reflex Culture - POCT glycated hemoglobin, total (HA1C) Medication management - Drug Screen with Confirmation, Urine (SEND OUT) - oxyCODONE (ROXICODONE) 5 mg Tablet; Take 1 tablet by mouth every 6 hours as needed for Pain. Proteinuria, unspecified type - Protein/Creatinine Ratio, urine documented in this encounter Plan of Treatment Not on file documented as of this encounter Procedures Procedure Name Priority Date/Time Associated Diagnosis Comments DRUG SCREEN WITH CONFIRMATION, URINE (SEND OUT) Routine 03/08/2017 11:13 AM EDT Medication management PROTEIN/CREATININE RATIO, URINE Routine 03/08/2017 11:13 AM EDT URINALYSIS WITH REFLEX CULTURE Routine 03/08/2017 11:13 AM EDT Type 2 diabetes mellitus without complication, without long-term current use of insulin POCT GLYCATED HEMOGLOBIN, TOTAL (HA1C) Routine 03/08/2017 10:15 AM EDT Type 2 diabetes mellitus without complication, without long-term current use of insulin documented in this encounter Results * (ABNORMAL) Protein/Creatinine Ratio, urine (03/08/2017 11:13 AM EDT) Creatinine, Urine 170 mg/dL [facility] Protein, Urine 574(H) 0 - 12 mg/dL [facility] Protein / Creatinine Ratio, Urine 3.4 ratio [facility] Urine specimen (specimen) Urine / Unknown 03/08/2017 11:13 AM EDT 03/08/2017 3:03 PM EDT Narrative Resulting Agency Comment Spec In Lab Nubia Botello APRN URINE ORDERABLES [facility] [place] [address] * (ABNORMAL) Urinalysis with reflex Culture (03/08/2017 11:13 AM EDT) Glucose, Urine Dipstick Negative Negative mg/dL [facility] Protein, Urine Dipstick >=500(A) Negative mg/dL [facility] Bilirubin, Urine Dipstick Negative Negative mg/dL [facility] Comment: Clinical correlation required for positive Urine Bilirubin results as false positive may occur with some drugs and drug related products. If a false positive is suspected a serum total bilirubin should be considered if clinically indicated. Urobilinogen, Urine Dipstick 2.0(A) Normal mg/dL [facility] pH, Urn (dipstick) 6.0 5.0 - 8.0 [facility] Blood, Urine Dipstick Negative Negative mg/dL [facility] Ketone, Urine Dipstick Negative Negative mg/dL [facility] Nitrite, Urine Dipstick Negative Negative [facility] Leukocytes, Urine Dipstick Negative Negative [facility] Appearance, Urine Dipstick Hazy(A) Clear [facility] Specific [place] Urine Automated 1.020 1.002 - 1.030 [facility] Color, Urine Dipstick Georgina Yellow [facility] RBC, Urine 9(H) 0 - 4 /HPF [facility] WBC, Urine 1 0 - 5 /HPF [facility] Bacteria, Urine Rare(A) None /HPF [facility] Squamous Epithelial Cells Raw Data, Urine 4 <=4 /HPF [facility] Hyaline Casts, Urine 3(H) 0 - 2 /LPF [facility] Reflex to Culture No [facility] Urine specimen obtained by clean catch procedure (specimen) 03/08/2017 11:13 AM EDT 03/08/2017 12:30 PM EDT Narrative Resulting Agency Comment Spec In Lab Nubia Botello APRN URINE ORDERABLES [facility] [place] [address] * Drug Screen with Confirmation, Urine (SEND OUT) (03/08/2017 11:13 AM EDT) U WANDY w/Conf Test ? Result ? Flag ??Unit ?? RefValue ------- Pain Clinic Survey, U ??Creatinine, U ?154.9 ?mg/dL ??Specific [place] ? 1.016 ??pH ? 6.3 ??Oxidants ? Negative ?Cutoff: 200 mg/L ??Comment ?Normal ??Amphetamines ? Negative ? ng/mL ??Cutoff: 500 ??Barbiturates ? Negative ? ng/mL ??Cutoff: 200 ??Benzodiazepines ?Negative ? ng/mL ??Cutoff: 100 ??Cocaine ?Negative ? ng/mL ??Cutoff: 150 ??Phencyclidine ?Negative ? ng/mL ??Cutoff: 25 ??Tetrahydrocannab inol ? Negative ? ng/mL ??Cutoff: 50 ? ---ADDITIONAL INFORMATION------- ?This report is intended for use in clinical monitoring or ?management of patients. ??It is not intended for use in ?employment-relat ed testing. ??Codeine ?Not Detected ? ng/mL ??Cutoff: 25 ?Tylenol 3 ??Lmsshwr-0-yhdy-g lucuronide ? Not Detected ? ng/mL ??Cutoff: 100 ?Metabolite of codeine ??Morphine ? Not Detected ? ng/mL ??Cutoff: 25 ?Lita Hernandez, MS Contin; Also a minor metabolite (10%) of ?codeine and can be seen in low concentrations (<2,000 ?ng/mL) with poppy seed ingestion. ??Lmrrqnop-1-tgja- glucuronide ?Not Detected ? ng/mL ??Cutoff: 100 ?Metabolite of morphine ??6-monoacetylmorp mary ? Not Detected ? ng/mL ??Cutoff: 25 ?Metabolite of heroin ??Hydrocodone ?Not Detected ? ng/mL ??Cutoff: 25 ?Lortab, [place], Vicodin; Also a very minor metabolite of ?codeine and impurity (<1%) of oxycodone. ??Norhydrocodone ? Not Detected ? ng/mL ??Cutoff: 25 ?Metabolite of hydrocodone ??Dihydrocodeine ? Not Detected ? ng/mL ??Cutoff: 25 ?Metabolite of hydrocodone ??Hydromorphone ?Not Detected ? ng/mL ??Cutoff: 25 ?Dilaudid, Exalgo; Also a metabolite of hydrocodone and a ?minor (<5%) metabolite of morphine. ??Hydromorphone-3- beta-glucuronide ?? Not Detected ? ng/mL ??Cutoff: 100 ?Metabolite of hydromorphone ??Oxycodone ?Not Detected ? ng/mL ??Cutoff: 25 ?Endocet, Percocet, Oxycontin ??Noroxycodone ? Not Detected ? ng/mL ??Cutoff: 25 ?Metabolite of oxycodone ??Oxymorphone ?Not Detected ? ng/mL ??Cutoff: 25 ?Numorphan, Opana; Also a metabolite of oxycodone. ??Tyiuvpjrlce-6-ge ta-glucuronide ? Not Detected ? ng/mL ??Cutoff: 100 ?Metabolite of oxymorphone ??Noroxymorphone ? Not Detected ? ng/mL ??Cutoff: 25 ?Metabolite of oxymorphone ??Fentanyl ? Not Detected ? ng/mL ??Cutoff: 2 ?Actiq, Duragesic, Fentora ??Norfentanyl ?Not Detected ? ng/mL ??Cutoff: 2 ?Metabolite of fentanyl ??Meperidine ? Not Detected ? ng/mL ??Cutoff: 25 ?Demerol ??Normeperidine ?Not Detected ? ng/mL ??Cutoff: 25 ?Metabolite of meperidine ??Naloxone ? Not Detected ? ng/mL ??Cutoff: 25 ?Narcan ??Bvayghae-3-ovky- glucuronide ?Not Detected ? ng/mL ??Cutoff: 100 ?Metabolite of naloxone ??Methadone ?Not Detected ? ng/mL ??Cutoff: 25 ?Dolophine ??EDDP ? Not Detected ? ng/mL ??Cutoff: 25 ?Metabolite of methadone ??Propoxyphene ? SEE COMMENTS ? ng/mL ??Cutoff: 25 ?Darvon, Darvocet ?Results not available due to analyte specific failure. ??Norpropoxyphene ?Not Detected ? ng/mL ??Cutoff: 25 ?Metabolite of propoxyphene ??Tramadol ? Not Detected ? ng/mL ??Cutoff: 25 ?Tradol, Ultram, Ultracet ??O-desmethyltrama dol ?Not Detected ? ng/mL ??Cutoff: 25 ?Metabolite of tramadol ??Tapentadol ? Not Detected ? ng/mL ??Cutoff: 25 ?Nucynta ??N-desmethyltapen tadol ?Not Detected ? ng/mL ??Cutoff: 50 ?Metabolite of tapentadol ??Tapentadol-beta- glucuronide ?Not Detected ? ng/mL ??Cutoff: 100 ?Metabolite of tapentadol ??Buprenorphine ?Not Detected ? ng/mL ??Cutoff: 5 ?Buprenex, Suboxone ??Norbuprenorphine ? Not Detected ? ng/mL ??Cutoff: 5 ?Metabolite of buprenorphine ??Norbuprenorphine glucuronide ? Not Detected ? ng/mL ??Cutoff: 20 ?Metabolite of buprenorphine ??Opioid Interpretation ?SEE COMMENTS ?No opioids were detected. The absence of expected drug(s) ?and/or drug metabolite(s) may indicate non-compliance, ?altered pharmacokinetics, inappropriate timing of specimen ?collection relative to drug administration, ?diluted/adultera valerie urine, or limitations of testing. ? ---ADDITIONAL INFORMATION------- ?This test was developed and its performance characteristics ?determined by [facility] in a manner consistent with CLIA ?requirements. This test has not been cleared or approved by ?the U.S. Food and Drug Administration. ?Test Performed by: ?[facility] - [facility] [address] ?[address] [place] [address] [facility] Urine specimen (specimen) 03/08/2017 11:13 AM EDT 03/08/2017 3:55 PM EDT Narrative Resulting Agency Comment Spec In Lab Nubia Botello APRN URINE ORDERABLES [facility] [place] [address] * (ABNORMAL) POCT glycated hemoglobin, total (HA1C) (03/08/2017 10:15 AM EDT) Hemoglobin A1C, POC 7.0(A) 4.3 - 5.6 % Urine specimen (specimen) 03/08/2017 10:15 AM EDT Nubia Botello APRN POINT OF CARE TE ST ORDERABLES documented in this encounter Visit Diagnoses Diagnosis Type 2 diabetes mellitus without complication, without long-term current use of insulin- Primary Medication management Encounter for long-term (current) use of other medications Proteinuria, unspecified type documented in this encounter Care Teams Professional Development Instructor Relationship Specialty Start Date End Date Nubia Botello APRN [facility] [place] [address] PCP - General 01/16/14 01/28/19 documented as of this encounter
--- OUTSIDE RECORDS SUMMARY | 2024-04-03 16:05 | XMS_ITS | Encounter Summary ---
Author Organization [facility] [place] [address] Care Team Providers Care Windows Administrator Name Role Phone Nubia Botello APRN Primary Care Provider + Reason for Visit * Reason Comments Hypertension 4 week follow up. Encounter Details Date Type Department Care Team (Late st Contact Info) Description 05/02/2017 9:40 AM EST Office Visit Internal Medicine at [address] [address] Nubia Botello APRN [facility] [place] [address] Need for prophylactic vaccination and inoculation against influenza; Fibromyalgia Social History Tobacco Use Types Packs/Day [...] Sign Reading Time Taken Comments Blood Pressure 141/77 05/02/2017 9:33 AM EST Pulse 79 05/02/2017 9:33 AM EST Temperature 36.8 ??C (98.3 ??F) 05/02/2017 9:33 AM ES T Respiratory Rate 18 05/02/2017 9:33 AM EST Oxygen Saturation 98% 05/02/2017 9:33 AM EST Inhaled Oxygen Concentration - - Weight 102 kg (224 lb 12.8 oz) 05/02/2017 9:33 A M EST Height - - Body Mass Index 37.99 03/29/2017 12:29 PM EDT documented in this encounter Progress Notes * Nubia Botello APRN - 05/02/2017 9:40 AM EST PCP: Nubia Botello APRN Chief Complaint Patient presents with ??? Hypertension 4 week follow up. SUBJECTIVE: Nancy Diego is a 51 y.o. female who presents for follow up on her blood pressure. Social History- she has gone back to work and is working at [employer]. She reports that it is hard to stand for 7-8 hours. She works at the [employer] and will have some shoulder pain, hips and her legs. Pain- oxycodone she needs two prescriptions, one for 7 days and then one for the other 21 days.She reports otherwise she has to pay out of pocket for the prescription. - she has script from 04/15/17 that was not picked up. Will destroy script with nurse as witness. Lab Results Component Value Date HA1C 7.0 (A) 03/08/2017 Review of Systems Constitutional: Positive for fatigue. Negative for chills and fever. Eyes: Positive for itching. Respiratory: Negative for cough and choking. Musculoskeletal: Positive for arthralgias, back pain and myalgias. Neurological: Positive for weakness. Allergies Allergen Reactions ??? Latex Skin cracks and bleeds ??? Penicillins Rash Current Outpatient Prescriptions Medication Sig Dispense Refill ??? oxyCODONE (ROXICODONE) 5 mg Tablet Take 1 tablet by mouth every 6 hours as needed for Pain. 112tablet 0 ??? cyclobenzaprine (FLEXERIL) 10 mg Tablet [...] ??? Migraines G43.909 ??? Elevated blood pressure [id number] ??? Body mass index (BMI) of 39.0-39.9 in adult Z68.39 ??? Low back pain M54.5 ??? Type 2 diabetes mellitus without complication, without long-term current use of insulin E11.9 ??? Fatigue R53.83 OBJECTIVE: Vitals: 05/02/17 0933 BP: 141/77 Pulse: 79 Resp: 18 Temp: 36.8 ??C (98.3 ??F) TempSrc: Oral SpO2: 98% Weight: (!) 102 kg (224 lb 12.8 oz) PHYSICAL EXAM: Physical Exam Constitutional: She [...] & PLAN: Nancy was seen today for hypertension. Diagnoses and all orders for this visit: Need for prophylactic vaccination and inoculation against influenza - Flu vaccine greater than or equal to 3yo preservative free Fibromyalgia - ongoing pain, will continue on current medications. Separate rx were given for insurance coverage. 7 day supply given. Script from 04/15/17 was destroyed as it had not been picked up. - oxyCODONE (ROXICODONE) 5 mg Tablet; Take 1 tablet by mouth every 6 hours as needed for Pain. - oxyCODONE (ROXICODONE) 5 mg Tablet; Take 1 tablet by mouth every 6 hours as needed for Pain. May fill on 05/09/17. documented in this encounter Plan of Treatment Not on file documented as of this encounter Visit Diagnoses Diagnosis Need for prophylactic vaccination and inoculation against influenza Fibromyalgia Mylagia and myositis, unspecified documented in this encounter Care Teams Windows Administrator Relationship Specialty Start Date End Date Nubia Botello APRN [facility] [address] [place] [address] PCP - General 01/16/14 01/28/19 documented as of this encounter
--- OUTSIDE RECORDS SUMMARY | 2024-04-03 16:05 | XMS_ITS | Encounter Summary ---
Author Organization [facility] [place] [address] Care Team Providers Care Pharmacy Technician Trainee Name Role Phone Nubia Botello APRN Primary Care Provider + Encounter Details Date Type Department Care Team (Late st Contact Info) Description 04/02/2017 Telephone Internal Medicine at [address] [address] Viky Robbins Social History Tobacco [...] * Telephone Encounter - Viky Robbins - 04/02/2017 4:33 PM EDT Nancy, has canceled her appt with you tomorrow, rescheduled to 1024. She would like you to call herto discuss her recent Rheum appt. [phone] Viky documented in this encounter Plan of Treatment Not on file documented as of this encounter Visit Diagnoses Not on filedocumented in this encounter Care Teams Pharmacy Technician Trainee Relationship Specialty Start Date End Date Nubia Botello APRN [facility] [place] [address] PCP - General 01/16/14 01/28/19 documented as of this encounter
--- OUTSIDE RECORDS SUMMARY | 2024-04-03 16:05 | XMS_ITS | Encounter Summary ---
Author Organization [facility] [place] [address] Care Team Providers Care Feather Curling Machine Operator Name Role Phone Rosmery Nubia Lopez APRN Primary Care Provider + Reason for Visit * Reason Comments Medication Refill Encounter Details Date Type Department Care Team (Late st Contact Info) Description 03/08/2017 Refill Internal Medicine at [address] [address] Nubia Botello [employer] [place] [address] Social History Tobacco Use Types Packs/Day Years [...] on filedocumented in this encounter Care Teams Feather Curling Machine Operator Relationship Specialty Start Date End Date Nubia Botello APRN [facility] [place] [address] PCP - General 01/16/14 01/28/19 documented as of this encounter
--- OUTSIDE RECORDS SUMMARY | 2024-04-03 16:05 | XMS_ITS | Encounter Summary ---
Author Organization [facility] [place] [address] Care Team Providers Care It Coordinator Name Role Phone Rosmery Nubia Lopez APRN Primary Care Provider + Reason for Visit * Reason Onset Date Comments Pharmacy Call 07/22/2017 Encounter Details Date Type Department Care Team (Late st Contact Info) Description 07/22/2017 Telephone Internal Medicine at [address] [address] Alyssa Boston Pharmacy Call Social History Tobacco Use Types Packs/Day Years [...] * Telephone Encounter - Alyssa Boston - 07/22/2017 2:18 PM EST Pharmacy or caller: [facility] Medication: DULoxetine (CYMBALTA) 20 mg Message: Pharmacy is requesting a script for 60 mg due to insurance not covering the 20 mg with theinstructions. documented in this encounter Plan of Treatment Not on file documented as of this encounter Visit Diagnoses Diagnosis Depressive disorder Depressive disorder, not elsewhere classified documented in this encounter Care Teams It Coordinator Relationship Specialty Start Date End Date Nubia Botello APRN [facility] [place] [address] PCP - General 01/16/14 01/28/19 documented as of this encounter
--- OUTSIDE RECORDS SUMMARY | 2024-04-03 16:05 | XMS_ITS | Encounter Summary ---
Author Organization [facility] [place] [address] Care Team Providers Care Electrical Installation Supervisor Name Role Phone Nubia Botello APRN Primary Care Provider + Reason for Visit * Reason Comments Diabetes Other Chronic Pain Encounter Details Date Type Department Care Team (Late st Contact Info) Description 10/17/2017 10:00 AM EDT Office Visit Internal Medicine at [address] [address] Nubia Botello APRN [facility] [place] [address] Type 2 diabetes mellitus without complication, without long-term current use of insulin; Fibromyalgia; Depression, unspecified depression type Social History Tobacco [...] Sign Reading Time Taken Comments Blood Pressure 119/73 10/17/2017 9:47 AM EDT Pulse 88 10/17/2017 9:47 AM EDT Temperature - - Respiratory Rate - - Oxygen Saturation 97% 10/17/2017 9:47 AM EDT Inhaled Oxygen Concentration - - Weight 104.9 kg (231 lb 3.2 oz) 10/17/2017 9:47 AM EDT Height 162.2 cm (5' 3.86) 10/17/2017 9:47 AM ED T Body Mass Index 39.86 10/17/2017 9:47 AM EDT documented in this encounter Progress Notes * Nubia Botello APRN - 10/17/2017 10:00 AM EDT PCP: Nubia Botello APRN Chief Complaint Patient presents with ??? Diabetes ??? Other Chronic Pain SUBJECTIVE: Nancy Diego is a 51 y.o. female who presents for follow up on her diabetes and chronic pain. Chronic pain- ongoing, she was on oxycodone, but had not been wearing and she got rid of them. She also lives far away and was unable to get scripts on regular schedule. She has difficulty affording gas to make it to appointments. She drives over an hour. - she is having pain in her right wrist and base of her thumb. She has a hard time holding things in her hand. - she has been doing her exercises. She has canceled appt with pain center because of snow storms. She is scheduled to see them in a couple of weeks. She has not been working because of the pain. Shefeels that only sometimes does the pain medication help. Lab Results Component Value Date HA1C 6.8 (A) 05/28/2017 Today is 8.6. Review of Systems Constitutional: Negative for chills and fever. Musculoskeletal: Positive for arthralgias and myalgias. Psychiatric/Behavioral: Positive for dysphoric mood and sleep disturbance. Negative for suicidal ideas. The patient is nervous/anxious. Allergies Allergen Reactions ??? Latex Skin cracks and bleeds ??? Penicillins Rash Current Outpatient Prescriptions Medication Sig Dispense Refill ??? atorvastatin (LIPITOR) 20 mg Tablet Take 1 tablet by mouth daily. 90 tablet 3 ??? cyclobenzaprine (FLEXERIL) 10 mg Tablet Take 1 tablet by mouth 3 times daily as needed for Muscle spasms. 90 tablet 3 ??? DULoxetine (CYMBALTA) 60 mg Capsule, Delayed Release(E.C.) Take 1 capsule by mouth daily. 90 tablet 1 ??? metFORMIN (GLUCOPHAGE-XR) 500 mg Tablet Sustained Release 24 hr Take 2 tablets by mouth daily. 180 tablet 1 ??? aspirin 81 mg Tablet, Delayed Release (E.C.) Take 1 tablet by mouth daily. 30 tablet 3 ??? lisinopril (PRINIVIL;ZESTRIL) 20 mg Tablet Take 1 tablet by mouth daily. 90 tablet 3 ??? gabapentin (NEURONTIN) 300 mg Capsule Take [...] ??? Migraines G43.909 ??? Elevated blood pressure [id number] ??? Body mass index (BMI) of 39.0-39.9 in adult Z68.39 ??? Low back pain M54.5 ??? Type 2 diabetes mellitus without complication, without long-term current use of insulin E11.9 ??? Fatigue R53.83 ??? Fibromyalgia M79.7 ??? Pain in right shoulder M25.511 OBJECTIVE: Vitals: 10/17/17 0947 BP: 119/73 Pulse: 88 SpO2: 97% Weight: 104.9 kg (231 lb 3.2 oz) Height: 162.2 cm (5' 3.86) PHYSICAL EXAM: Physical Exam Constitutional: She is [...] Skin: Skin is warm and dry. Psychiatric: Judgment and thought content normal. She is slowed and withdrawn. She exhibits a depressed mood. Vitals reviewed. ASSESSMENT & PLAN: Nancy was seen today for diabetes and other. Diagnoses and all orders for this visit: Type 2 diabetes mellitus without complication, without long-term current use of insulin - POCT glycated hemoglobin, total (HA1C) metFORMIN (GLUCOPHAGE-XR) 500 mg Tablet Sustained Release 24 hr; Take 2 tablets by mouth daily. Increase to 2 tablets in the morning and 500 mg at night for 2 weeks, then 2 tablets twice a day with meals. - increase metformin as a1c is elevated. - f/u one month for depression. Fibromyalgia- Chronic pain, will have her follow up with pain clinic in couple weeks. Depression, unspecified depression type - worse with having to live with chronic illnesses, will have her start wellbutrin in addition to cymbalta. She feels that cymbalta and gabapentin make her able to get out of bed in the morning. - buPROPion (WELLBUTRIN XL) 150 mg Tablet Extended Release 24 hr; Take 1 tablet by mouth every morning. documented in this encounter Plan of Treatment Not on file documented as of this encounter Procedures Procedure Name Priority Date/Time Associated Diagnosis Comments POCT GLYCATED HEMOGLOBIN, TOTAL (HA1C) Routine 10/17/2017 9:50 AM EDT Type 2 diabetes mellitus without complication, without long-term current use of insulin documented in this encounter Results * (ABNORMAL) POCT glycated hemoglobin, total (HA1C) (10/17/2017 9:50 AM EDT) Hemoglobin A1C, POC 8.6(A) 4.3 - 5.6 % 10/17/2017 9:50 AM EDT Nubia Botello APRN POINT OF CARE TE ST ORDERABLES documented in this encounter Visit Diagnoses Diagnosis Type 2 diabetes mellitus without complication, without long-term current use of insulin Fibromyalgia Mylagia and myositis, unspecified Depression, unspecified depression type documented in this encounter Care Teams Electrical Installation Supervisor Relationship Specialty Start Date End Date Nubia Botello, [facility] [place] [place] [address] PCP - General 01/16/14 01/28/19 documented as of this encounter
--- OUTSIDE RECORDS SUMMARY | 2024-04-03 16:05 | XMS_ITS | Encounter Summary ---
Author Organization [facility] [place] [address] Care Team Providers Care Third Cook Name Role Phone Nubia Botello APRN Primary Care Provider + Reason for Referral * Consultation (Routine) - Closed Specialty Diagnoses / Procedures Referred By Dennis daniels Referred To Contact Pain Management Diagnoses Chronic pain syndrome Fibromyalgia Nubia Botello APRN [facility] [address] [place] [address] [facility] [address] [place] [address] Referral ID Status Reason Start Date Expiration Date V isits Requested Visits Authorized [id number] Closed Specialty Service Requested 07/17/2017 07/17/2018 1 1 Reason for Visit * Reason Comments Medication Management Encounter Details Date Type Department Care Team (Late st Contact Info) Description 07/17/2017 10:20 AM EST Office Visit Internal Medicine at [address] [address] Nubia Botello APRN [facility] [address] [place] [address] Chronic pain syndrome; Fibromyalgia Social History Tobacco Use Types Packs/Day [...] Sign Reading Time Taken Comments Blood Pressure 118/59 07/17/2017 9:51 AM EST Pulse 86 07/17/2017 9:51 AM EST Temperature 36.7 ??C (98.1 ??F) 07/17/2017 9:51 AM ES T Respiratory Rate - - Oxygen Saturation 98% 07/17/2017 9:51 AM EST Inhaled Oxygen Concentration - - Weight 101.2 kg (223 lb) 07/17/2017 9:51 AM EST Height 163.8 cm (5' 4.5) 07/17/2017 9:51 AM EST Body Mass Index 37.69 07/17/2017 9:51 AM EST documented in this encounter Progress Notes * Nubia Botello APRN - 07/17/2017 10:20 AM EST PCP: Nubia Botello APRN Chief Complaint Patient presents with ??? Medication Management SUBJECTIVE: Nancy Diego is a 51 y.o. female who presents for follow up on her chronic pain and fibromyalgia. She reports that she has had cough and tickle in her throat for the last 3-4 days. She is feeling tired today. She has had a lot of stress recently. 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 Fibromyalgia- She continues to have a lot of back pain and leg pain. She reports that it is not only in her joints and myalgia. She has been doing exercises at home. She feels that things are getting worse insteadof better. Review of Systems Constitutional: Positive for fatigue and fever. HENT: Positive for congestion and sinus pressure. Respiratory: Positive for cough. Gastrointestinal: Positive for diarrhea. Negative for nausea and vomiting. Allergies Allergen Reactions ??? Latex Skin cracks and bleeds ??? Penicillins Rash Current Outpatient Prescriptions Medication Sig Dispense Refill ??? metFORMIN (GLUCOPHAGE-XR) 500 mg Tablet Sustained Release 24 hr Take 2 tablets by mouth daily. 180 tablet 1 ??? atorvastatin (LIPITOR) 20 mg Tablet Take 1 tablet by mouth daily. 30 tablet 3 ??? aspirin 81 mg Tablet, Delayed Release (E.C.) Take 1 tablet by mouth daily. 30 tablet 3 ??? oxyCODONE (ROXICODONE) 5 mg Tablet Take 1 tablet by mouth every 6 hours as needed for Pain. Mayfill on 05/30/17. 112 tablet 0 ??? cyclobenzaprine (FLEXERIL) 10 mg [...] ??? Migraines G43.909 ??? Elevated blood pressure [id number] ??? Body mass index (BMI) of 39.0-39.9 in adult Z68.39 ??? Low back pain M54.5 ??? Type 2 diabetes mellitus without complication, without long-term current use of insulin E11.9 ??? Fatigue R53.83 ??? Fibromyalgia M79.7 OBJECTIVE: Vitals: 07/17/17 0951 BP: 118/59 Pulse: 86 Temp: 36.7 ??C (98.1 ??F) TempSrc: Oral SpO2: 98% Weight: 101.2 kg (223 lb) Height: 163.8 cm (5' 4.5) PHYSICAL EXAM: Physical Exam Constitutional: She is oriented to person, place, and time. She appears well- developed and well-nourished. HENT: Head: Normocephalic and atraumatic. Eyes: Conjunctivae are normal. No scleral icterus. Pulmonary/Chest: Effort normal. Neurological: She is alert and oriented to person, place, and time. Skin: Skin is warm and dry. Psychiatric: Her behavior is normal. Judgment and thought content normal. She exhibits a depressed mood. ASSESSMENT & PLAN: Nancy was seen today for medication management. Diagnoses and all orders for this visit: Chronic pain syndrome - Referral to Pain Clinic - ongoing, without improvement. Discussed that we have tried numerous different medications. Will have her follow up with pain center to discuss alternative medicaitons Fibromyalgia - Referral to Pain Clinic - refill on chronic narcotics given in clinic today . - oxyCODONE (ROXICODONE) 5 mg Tablet; Take 1 tablet by mouth every 6 hours as needed for Pain. documented in this encounter Plan of Treatment Scheduled Referrals Name Type Priority Associated Diagnoses Orde r Schedule Referral to Pain Clinic Outpatient Referral Routine Chronic pain syndrome Fibromyalgia Ordered: 07/17/2017 documented as of this encounter Visit Diagnoses Diagnosis Chronic pain syndrome Fibromyalgia Mylagia and myositis, unspecified documented in this encounter Care Teams Third Cook Relationship Specialty Start Date End Date Nubia Botello APRN [facility] [address] [place] [address] PCP - General 01/16/14 01/28/19 documented as of this encounter
--- OUTSIDE RECORDS SUMMARY | 2024-04-03 16:05 | XMS_ITS | Encounter Summary ---
Author Organization [facility] [place] [address] Care Team Providers Care Beater Machine Operator Name Role Phone Nubia Botello APRN Primary Care Provider + Encounter Details Date Type Department Care Team (Latest Contact Info) Description 08/26/2017 10:15 AM EST - 08/26/2017 11:59 PM EST Hospital Encounter XRay at [address] [place] [phone] Nubia Botello APRN [facility] [place] [address] Acute pain of right shoulder Discharge Disposition: Home Social History Tobacco Use [...] Sig Dispensed Refills Start Date End Date aspirin 81 mg Tablet, Delayed Release (E.C.) [...] by mouth every 6 hours as needed. DULoxetine (CYMBALTA) 60 mg Capsule, Delayed Release(E.C.)Indicati ons:Depressive disorder Take 1 capsule by mouth daily. 90 tablet 1 07/23/2017 03/05/2018 metFORMIN (GLUCOPHAGE-XR) 500 mg Tablet Sustained Release 24 hr Take 2 tablets by mouth daily. 180 tablet 1 07/15/2017 10/17/2017 atorvastatin (LIPITOR) 20 mg Tablet Take 1 tablet by mouth daily. 30 tablet 3 05/28/2017 10/08/2017 cyclobenzaprine (FLEXERIL) 10 mg Tablet Take 1 tablet by mouth 3 times daily as needed for Muscle spasms. 90 tablet 3 04/15/2017 10/07/2017 lisinopril (PRINIVIL;ZESTRIL) 20 mg Tablet Take 1 tablet by mouth daily. 90 tablet 3 03/08/2017 02/28/2018 gabapentin (NEURONTIN) 300 mg CapsuleIndications:Fi bromyalgia Take 3 capsules by mouth 3 times daily. 810 capsule 3 12/20/2016 10/29/2017 albuterol (PROAIR HFA) 90 mcg/actuation HFA Aerosol Inhaler Inhale 2 puffs into the lungs every 4 hours as needed for Wheezing. Use with spacer 1 Inhaler 1 04/08/2015 11/05/2018 documented as of this encounter Plan of Treatment Not on file documented as of this encounter Procedures Procedure Name Priority Date/Time Associated Diagnosis Comments XR SHOULDER RIGHT Routine 08/26/2017 10: 39 AM EST Acute pain of right shoulder documented in this encounter Results * XR Shoulder Right (Generic) (08/26/2017 10:39 AM EST) Anatomical Region Laterality Modality Shoulder Right Digital Radiogra phy Impressions 08/26/2017 10:48 AM EST Negative right shoulder Narrative 08/26/2017 10:48 AM EST EXAMINATION: XR SHOULDER RIGHT (GENERIC) CLINICAL HISTORY: acute right shoulder pain TECHNIQUE: 4 views of the right shoulder COMPARISON: None FINDINGS: No fracture or dislocation is seen. The A/C joint and glenohumeral joint are normally aligned. The humeral head is smooth and rounded and soft tissues are unremarkable. Procedure Note Reji Way MD - 08/26/2017 EXAMINATION: XR SHOULDER RIGHT (GENERIC) CLINICAL HISTORY: acute right shoulder pain TECHNIQUE: 4 views of the right shoulder COMPARISON: None FINDINGS: No fracture or dislocation is seen. The A/C joint and glenohumeral jointare normally aligned. The humeral head is smooth and rounded and soft tissuesare unremarkable. IMPRESSION Negative right shoulder 10:48 AM Nubia Botello APRN IMG DX ORDERABLE S documented in this encounter Visit Diagnoses Diagnosis Acute pain of right shoulder documented in this encounter Care Teams Beater Machine Operator Relationship Specialty Start Date End Date Nubia Botello APRN [facility] [place] [address] PCP - General 01/16/14 01/28/19 documented as of this encounter
--- OUTSIDE RECORDS SUMMARY | 2024-04-03 16:05 | XMS_ITS | Encounter Summary ---
Author Organization [facility] [place] [address] Care Team Providers Care Affiliate Marketing Specialist Name Role Phone Rosmery, Nubia Lopez APRN Primary Care Provider + Reason for Visit * Reason Onset Date Comments Medication Refill 07/15/2017 Encounter Details Date Type Department Care Team (Late st Contact Info) Description 07/15/2017 Refill Internal Medicine at [address] [address] Chhaya Cee, JAYSON Social History Tobacco Use [...] on filedocumented in this encounter Care Teams Affiliate Marketing Specialist Relationship Specialty Start Date End Date Nubia Botello APRN [facility] [place] [address] PCP - General 01/16/14 01/28/19 documented as of this encounter
--- OUTSIDE RECORDS SUMMARY | 2024-04-03 16:05 | XMS_ITS | Encounter Summary ---
Author Organization [facility] [place] [address] Care Team Providers Care Car Manager Name Role Phone Rosmery Nubia Lopez APRN Primary Care Provider + Reason for Visit * Reason Onset Date Comments Other 11/30/2016 Encounter Details Date Type Department Care Team (Late st Contact Info) Description 11/30/2016 Telephone Internal Medicine at [address] [address] Yuki Galdamez, RN Other Social History Tobacco Use Types Packs/Day Years [...] encounter Miscellaneous Notes * Telephone Encounter - Yuki Galdamez RN - 11/30/2016 10:19 AM EDT She got a phone call from [facility] wanting to deliver oxygen and she thought she would get a CPAP machine. Instructed that she would need to go to the sleep clinic prior to getting a CPAP. documented in this encounter Plan of Treatment Not on file documented as of this encounter Visit Diagnoses Not on filedocumented in this encounter Care Teams Car Manager Relationship Specialty Start Date End Date Nubia Botello APRN [facility] [place] [address] PCP - General 01/16/14 01/28/19 documented as of this encounter
--- OUTSIDE RECORDS SUMMARY | 2024-04-03 16:05 | XMS_ITS | Encounter Summary ---
Author Organization [facility] [address] Care Team Providers Care Composer Teaching Artist Name Role Phone Nubia Botello APRN Primary Care Provider + Reason for Visit * Reason Onset Date Comments Numbness 01/21/2017 Encounter Details Date Type Department Care Team (Late st Contact Info) Description 01/21/2017 Telephone Internal Medicine at [address] [address] Consuelo Delaney RN Numbness Social History Tobacco Use Types Packs/Day Years [...] Telephone Encounter - Consuelo Delaney RN - 01/21/2017 8:56 AM EDT Patient calling to speak to Nubia. She states her left hand/fingers feel numb, she has pain fromher thumb into her shoulder, and she is starting to feel same sx on right side. She also continues with intermittent rectal bleeding, occasional clots, mary over last 3 days. Denies dizziness but feels very tired. States Nubia knows about it, she had a colo for the sx. States she doesn't think the bleeding is from internal hemorrhoids. Offered an appt today, she has no gas money until at least , and doesn't want to see anyonebut Nubia. Scheduled for 01/28 and advised to get to ED if bleeding worsens. documented in this encounter Plan of Treatment Not on file documented as of this encounter Visit Diagnoses Not on filedocumented in this encounter Care Teams Composer Teaching Artist Relationship Specialty Start Date End Date Nubia Botello, [facility] [address] [place] [address] PCP - General 01/16/14 01/28/19 documented as of this encounter
--- OUTSIDE RECORDS SUMMARY | 2024-04-03 16:05 | XMS_ITS | Encounter Summary ---
Author Organization [facility] [place] [address] Care Team Providers Care Customer Account Administrator Name Role Phone Nubia Botello APRN Primary Care Provider + Encounter Details Date Type Department Care Team (Latest Contact Info) Description 12/10/2016 11:43 AM EDT - 12/10/2016 11:59 PM EDT Hospital Encounter XRay at [address] [place] [address] Nubia Botello [employer] [facility] [place] [address] Pain in left wrist Discharge Disposition: Home Social History Tobacco Use [...] Sig Dispensed Refills Start Date End Date lancets (FREESTYLE LANCETS) 28 gauge MiscIndications:diab etes mellitus 1 each by Other route 3 times daily. Indications: Diabetes Mellitus 300 each 3 12/10/2016 blood sugar diagnostic strips (FREESTYLE LITE STRIPS) StripIndications:maricarmen betes mellitus 1 each by Other route 3 times daily. Use as instructed Indications: Diabetes Mellitus 300 each 3 12/10/2016 blood-glucose meter (FREESTYLE LITE METER) KitIndications:diabe angelita mellitus 1 blood glucose meter. Indications: Diabetes Mellitus 1 each 12/10/2016 acetaminophen (TYLENOL) 500 mg tablet Take 1,000 mg by mouth every 6 hours as needed. predniSONE (DELTASONE) 20 mg Tablet Take 2 tablets by mouth daily for 5 days. 10 tablet 12/10/2016 12/15/2016 cyclobenzaprine (FLEXERIL) 10 mg Tablet Take 1 tablet by mouth 3 times daily as needed for Muscle spasms. 90 tablet 3 12/10/2016 04/15/2017 gabapentin (NEURONTIN) 300 mg CapsuleIndications:F ibromyalgia Take 3 capsules by mouth 3 times daily. 270 capsule 3 08/22/2016 12/20/2016 DULoxetine (CYMBALTA) 20 mg Capsule, Delayed Release(E.C.)Indicat ions:fibromyalgia Take 2 capsules by mouth daily. May increase to 60 mg daily after one week. Indications: Fibromyalgia 60 tablet 11 07/02/2016 03/08/2017 metFORMIN (GLUCOPHAGE-XR) 500 mg Tablet Sustained Release 24 hr Take 1 tablet by mouth daily. 30 tablet 12 01/23/2016 01/04/2017 hydrochlorothiazide (HYDRODIURIL) 25 mg TabletIndications:El evated blood pressure Take 1 tablet by mouth daily. 90 tablet 3 12/22/2015 01/28/2017 albuterol (PROAIR HFA) 90 mcg/actuation HFA Aerosol Inhaler Inhale 2 puffs into the lungs every 4 hours as needed for Wheezing. Use with spacer 1 Inhaler 1 04/08/2015 11/05/2018 clobetasol (TEMOVATE) 0.05 % Cream Apply topically 2 times daily. 30 g 0 04/08/2015 08/26/2017 ibuprofen (ADVIL;MOTRIN) 800 mg Tablet Take 1 tablet by mouth every 8 hours as needed. 30 tablet 0 08/12/2014 03/29/2017 documented as of this encounter Plan of Treatment Not on file documented as of this encounter Procedures Procedure Name Priority Date/Time Associated Diagnosis Comments XR WRIST 2 VIEWS LEFT Routine 12/10/2016 12:10 PM EDT Pain in left wrist documented in this encounter Results * XR Wrist 2 views Left (12/10/2016 12:10 PM EDT) Anatomical Region Laterality Modality Hand, Wrist Left Digital Radiogra phy Impressions 12/10/2016 2:06 PM EDT No focal abnormalities identified. Narrative 12/10/2016 2:06 PM EDT EXAMINATION: XR WRIST 2 VIEWS LEFT CLINICAL HISTORY: left wrist pain, not improving TECHNIQUE: 3 views of the wrist COMPARISON: None FINDINGS: No focal swelling. Alignment is normal. No fracture is identified. No soft tissue calcification. Procedure Note Mario Alicea MD - 12/10/2016 EXAMINATION: XR WRIST 2 VIEWS LEFT CLINICAL HISTORY: left wrist pain, not improving TECHNIQUE: 3 views of the wrist COMPARISON: None FINDINGS: No focal swelling. Alignment is normal. No fracture is identified. Nosoft tissue calcification. IMPRESSION No focal abnormalities identified. Nubia Botello APRN IMG DX ORDERABLE S documented in this encounter Visit Diagnoses Diagnosis Pain in left wrist Pain in joint, forearm documented in this encounter Care Teams Customer Account Administrator Relationship Specialty Start Date End Date Nubia Botello APRN [facility] [address] [address] PCP - General 01/16/14 01/28/19 documented as of this encounter
--- OUTSIDE RECORDS SUMMARY | 2024-04-03 16:05 | XMS_ITS | Encounter Summary ---
Author Organization [facility] [place] [address] Care Team Providers Care Banquet Lead Name Role Phone Rosmery Nubia Lopez APRN Primary Care Provider + Reason for Visit * Reason Onset Date Comments Medication Refill 10/07/2017 Encounter Details Date Type Department Care Team (Late st Contact Info) Description 10/07/2017 Refill Internal Medicine at [address] [address] Ayesha Her Social History Tobacco Use Types Packs/Day Years [...] encounter Miscellaneous Notes * Telephone Encounter - Ayesha Her - 10/07/2017 9:53 AM EDT Nancy calling in stating that she needs refills on her flexeril and lisinopril. Please send them to the [facility] [place] Nancy has an appointment with PCP on 10/17 documented in this encounter Plan of Treatment Not on file documented as of this encounter Visit Diagnoses Not on filedocumented in this encounter Care Teams Banquet Lead Relationship Specialty Start Date End Date Nubia Botello APRN [facility] [address] [address] PCP - General 01/16/14 01/28/19 documented as of this encounter
--- OUTSIDE RECORDS SUMMARY | 2024-04-03 16:05 | XMS_ITS | Encounter Summary ---
Author Organization [facility] [place] [address] Care Team Providers Care Mortgage Loan Counselor Name Role Phone Rosmery, Nubia Lopez APRN Primary Care Provider + Reason for Visit * Reason Onset Date Comments Medication Refill 08/23/2017 Encounter Details Date Type Department Care Team (Late st Contact Info) Description 08/23/2017 Refill Internal Medicine at [address] [address] Consuelo Delaney RN Social History Tobacco Use Types Packs/Day [...] on filedocumented in this encounter Care Teams Mortgage Loan Counselor Relationship Specialty Start Date End Date Nubia Botello APRN [facility] [address] [place] [address] PCP - General 01/16/14 01/28/19 documented as of this encounter
--- OUTSIDE RECORDS SUMMARY | 2024-04-03 16:05 | XMS_ITS | Encounter Summary ---
Author Organization [facility] [place] [address] Care Team Providers Care Solar Energy Technician Name Role Phone Rosmery, Nubia Lopez APRN Primary Care Provider + Encounter Details Date Type Department Care Team (Late st Contact Info) Description 01/07/2017 Refill Internal Medicine at [address] [address] Viky Robbins Social History Tobacco Use Types [...] * Telephone Encounter - Viky Robbins - 01/07/2017 2:25 PM EDT Patient called her metformin direction sent on 01-04 are incorrect per patient. She states she is taking 1000mg daily. Can this be corrected and sent to [facility]? Viky documented in this encounter Plan of Treatment Not on file documented as of this encounter Visit Diagnoses Not on filedocumented in this encounter Care Teams Solar Energy Technician Relationship Specialty Start Date End Date Nubia Botello APRN [facility] [address] [place] [address] PCP - General 01/16/14 01/28/19 documented as of this encounter
--- OUTSIDE RECORDS SUMMARY | 2024-04-03 16:05 | XMS_ITS | Encounter Summary ---
Author Organization [facility] Luc burnett [place] [id number] Care Team Providers Care Cpc Coder Name Role Phone Nubia Botello APRN Primary Care Provider + Reason for Referral * E-Consultation (Routine) - Specialty Diagnoses / Procedures Referred By Dennis daniels Referred To Contact Rheumatology Diagnoses Elevated C-reactive protein (CRP) Elevated sed rate Procedures eConsult to Rheumatology (Primary Care Use Only) Nubia Botello APRN [facility] [address] [place] [address] Referral ID Status Reason Start Date Expiration Date V isits Requested Visits Authorized [id number] 01/29/2017 01/29/2018 3 3 Encounter Details Date Type Department Care Team (Late st Contact Info) Description 01/29/2017 Orders Only [place] [address] Nubia Botello APRN [facility] [address] [place] [address] Elevated LFTs; Elevated C-reactive protein (CRP); Elevated sed rate; Proteinuria, unspecified type Social History Tobacco Use [...] Progress Notes * Nubia Botello APRN - 01/29/2017 1:21 PM EDT Spoke to patient on the phone and updated her on the labs. She reports feeling more tired today. She states that she is more fatigued today and has had more episodes of dizziness. She did take the oxycodone this morning and tylenol. She has taken 4 tylenol 500 mg today. I told her not to take more than 8 per day. documented in this encounter Plan of Treatment Not on file documented as of this encounter Visit Diagnoses Diagnosis Elevated LFTs Other abnormal blood chemistry Elevated C-reactive protein (CRP) Elevated sed rate Elevated sedimentation rate Proteinuria, unspecified type documented in this encounter Care Teams Cpc Coder Relationship Specialty Start Date End Date Nubia Botello APRN [facility] [address] [address] PCP - General 01/16/14 01/28/19 documented as of this encounter
--- OUTSIDE RECORDS SUMMARY | 2024-04-03 16:05 | XMS_ITS | Encounter Summary ---
Author Organization [facility] [place] [address] Care Team Providers Care Insurance Loss Assessor Name Role Phone Nubia Botello APRN Primary Care Provider + Reason for Visit * Reason Onset Date Comments Prior Authorization 04/05/2017 Encounter Details Date Type Department Care Team (Late st Contact Info) Description 04/05/2017 Telephone [place] [id number] Katharine Llanos Prior Authorization Social History Tobacco Use Types Packs/Day Years [...] Miscellaneous Notes * Telephone Encounter - Katharine Llanos - 04/05/2017 2:17 PM EDT Medication Prior Authorization MARTY Medication name/dose/directions: DICLOFENAC 1% GEL - APPLY 2G 4X DAILY Rationale for request: PAIN Health plan: [place] ([facility]) Authorizing training representative name: ALAN Faxed to health plan on: 04/05/17 Health plan decision: APPROVED Quantity approved: Authorization number: [id number] Start date: 04/08/17 End date: 04/08/18 documented in this encounter Plan of Treatment Not on file documented as of this encounter Visit Diagnoses Not on filedocumented in this encounter Care Teams Insurance Loss Assessor Relationship Specialty Start Date End Date Nubia Botello APRN [facility] [place] [address] PCP - General 01/16/14 01/28/19 documented as of this encounter
--- OUTSIDE RECORDS SUMMARY | 2024-04-03 16:05 | XMS_ITS | Encounter Summary ---
Author Organization [facility] Address [facility] [place] [address] Care Team Providers Care Public Area Supervisor Name Role Phone Nubia Botello APRN Primary Care Provider + Reason for Visit * Consultation (Routine) - Specialty Diagnoses / Procedures Referred By Dennis daniels Referred To Contact General Surgery Diagnoses refractory bleeding, hemorrhoids, prolapse Procedures Consult Floyd Lopez MD [facility] [place] [address] [facility] [place] [address] Referral ID Status Reason Start Date Expiration Date V isits Requested Visits Authorized [id number] 02/05/2017 02/05/2018 1 1 Encounter Details Date Type Department Care Team (Late st Contact Info) Description 03/12/2017 1:00 PM EDT Office Visit [place] [address] [facility] [place] [address] BRBPR (bright red blood per rectum); Diarrhea, unspecified type; Grade II hemorrhoids Social History Tobacco Use Types Packs/Day Years [...] Sign Reading Time Taken Comments Blood Pressure 152/81 03/12/2017 12:42 PM EDT Pulse 94 03/12/2017 12:42 PM EDT Temperature 36.7 ??C (98.1 ??F) 03/12/2017 1 2:42 PM EDT Respiratory Rate 14 03/12/2017 12:4 2 PM EDT Oxygen Saturation 96% 03/12/2017 12: 42 PM EDT Inhaled Oxygen Concentration - - Weight 103.5 kg (228 lb 3.2 oz) 017 12:42 PM EDT Height 162.6 cm (5' 4) 03/12/2017 12:4 2 PM EDT Body Mass Index 39.17 03/12/2017 12:42 PM EDT documented in this encounter Progress Notes * Tal Carlson MD - 03/12/2017 1:00 PM EDT Colorectal Surgery Outpatient Consultation ~ Division of Colon and Rectal Surgery ~ [facility] HPI: Nancy Diego is a pleasant 51 y.o. female who we were asked to see by Dr. Lopez regarding No chief complaint on file. . The patient's PCP is Nubia Botello APRN. She complains of bright red blood per rectum with bowel movements. She also notes bloody staining of her undergarments on a near daily basis. She has not noted tissue protruding from the anus. She has 3-5 bowel movements per day that she describes as loose. In fact, she states she has had loose bowel movements since her cholecystectomy at age 17. She denies pain or other discharge, fevers, sweatsor chills, nausea or vomiting. Review of Systems Gastrointestinal: Positive for abdominal discomfort (occasional) and diarrhea. Negative for vomiting, GERD, constipation and nausea. All other systems reviewed and are negative. Most recent colonoscopy was performed on: 02/05/17 Past medical history: Patient Active Problem List Diagnosis Code ??? Depression F32.9 ??? Irritable bowel syndrome K58.9 ??? GERD (gastroesophageal reflux disease) K21.9 ??? Peptic ulcer disease K27.9 ??? Migraines G43.909 ??? Elevated blood pressure [id number] ??? Body mass index (BMI) of 39.0-39.9 in adult Z68.39 ??? Low back pain M54.5 ??? Type 2 diabetes mellitus without complication, without long-term current use of insulin E11.9 ??? Fatigue R53.83 Past surgical history: Past Surgical History: Procedure Laterality Date ??? SECTION x3 ??? CHOLECYSTECTOMY ??? DENTAL SURGERY wisdom teeth, one pulled ??? HYSTERECTOMY ??? OVARY REMOVAL after hysterectomy ??? PRO COLONOSCOPY, BIOPSY N/A 03/26/2016 COLONOSCOPY FLEXIBLE, WITH BX performed by Mohinder Cid MD at [facility] ENDOSCOPY ??? PRO COLONOSCOPY, DIAGNOSTIC N/A 02/05/2017 COLONOSCOPY, DIAGNOSTIC performed by Floyd Lopez MD at [facility] ENDOSCOPY Allergies: Latex and Penicillins Medications: reviewed in the electronic medical record. Current Outpatient Prescriptions on File Prior to Visit Medication Sig Dispense Refill ??? DULoxetine (CYMBALTA) 20 mg Capsule, Delayed Release(E.C.) TAKE 2 CAPSULES BY MOUTH DAILY. MAY INCREASE TO 60MG DAILY AFTER ONE WEEK. 180 capsule 3 ??? oxyCODONE (ROXICODONE) 5 mg Tablet Take 1 tablet by mouth every 6 hours as needed for Pain. 112tablet 0 ??? lisinopril (PRINIVIL;ZESTRIL) 20 mg Tablet Take 1 tablet by mouth daily. 90 tablet 3 ??? alcebob-ephlutjkmtigf-qvcvevss (EXCEDRIN MIGRAINE) 250-250-65 mg Tablet Take 1 tablet by mouth every 6 hours as needed for Pain. ??? metFORMIN (GLUCOPHAGE-XR) 500 mg Tablet Sustained [...] for Muscle spasms. 90 tablet 3 ??? albuterol (PROAIR HFA) 90 mcg/actuation HFA Aerosol Inhaler Inhale 2 puffs into the lungs every4 hours as needed for Wheezing. Use with spacer 1 Inhaler 1 ??? ibuprofen (ADVIL;MOTRIN) 800 mg Tablet Take 1 tablet by mouth every 8 hours as needed. 30 tablet 0 ??? acetaminophen (TYLENOL) 500 mg tablet Take 1,000 mg by mouth every 6 hours as needed. ??? clobetasol (TEMOVATE) 0.05 % Cream Apply topically 2 times daily. (Patient not taking: Reportedon 03/12/2017) 30 g 0 No current facility-administered medications on file prior to visit. Social history: reports that she has been smoking Cigarettes. She has been smoking about 0.50 packsper day. She has never used smokeless tobacco. She reports that she does not drink alcohol or use illicit drugs. Family medical history: Family History Problem Relation Age of Onset ??? Cancer Mother cervical ??? Glaucoma Father ??? Cancer Maternal Aunt breast cancer ??? Diabetes Maternal Aunt ??? Diabetes Maternal Uncle Patient denies a family history of: colorectal cancer, colorectal polyps, diverticular disease, Crohn disease and ulcerative colitis. Patient admits a family history of: none. Physical exam: Vitals: Blood pressure 152/81, pulse 94, temperature 36.7 ??C (98.1 ??F), temperature source Oral, resp. rate 14, height 162.6 cm (5' 4), weight (!) 103.5 kg (228 lb 3.2 oz), SpO2 96 %. BMI: Body mass index is 39.17 kg/(m^2). General Appearance: well developed and well nourished Neuro: awake, alert and oriented to person, place and time no acute distress Psych: appropriate mood and affect Eyes: extra ocular muscles intact, pupils equally reactive to light and accomodation ENT: supple, no lyphadenopathy noted. Poor dentition. CV: regular rate and rhythm Resp: non-labored without adventitous sounds on auscultation Lymph: no edema noted Abdomen: soft, non-tender, and not distended, no masses or organomegaly. Significant pannus. Perineal exam: The patient was examined in the prone position with assistance from nursing. The rectum was examined with a well lubricated digit and revealed normal tone, enlarged hemorrhoidal tissue and there was no blood. Anoscopy: After introducing a well lubricated anoscope, examination of the anal canal revealed normal appearing mucosa, friable and enlarged hemorrhoidal tissue, Grade II. No masses were appreciated.Banding was not done due to patient discomfort. Ext: no cyanosis Labs: reviewed. Endoscopy: reviewed, inflammed internal hemorrhoids noted. Likely grade II. No other pathology Path: reviewed. Imaging: reviewed. COREFO Responses 03/12/2017 Incontinence Scale 25 Social Impact Scale 44.44 Frequency Scale 25 Stool Releated Aspects 66.66 Medication Scale 16.66 Total COREFO Score 35.57 The COREFO questionnaire is a validated questionnaire with 27 questions to assess colorectal functional outcome. Patients are asked to consider the two week period prior before filling out the questionnaire. Category scores range from zero to 100. A total score is calculated from the categories above, also ranging from zero to 100. A higher score represents an increased level of functional disturbance. Impression/Plan: Nancy Diego is a 51 y.o. female with bleeding likely hemorrhoidal in origin. She had difficulty with examination today due to discomfort so banding was not performed. I have prescribed her Anusol suppositories to reduce inflammation. Regarding her diarrhea, this may have a component of post cholecystectomy diarrhea due to bile salts, so I have prescribed a trial of cholestyramine in an effort to reduce her frequency of bowel movements. I will see her again in one month to reevaluate for banding of her hemorrhoids. Tal Carlson MD, MSc gallery manager Division of Colon and Rectal Surgery [facility] Pager [phone] documented in this encounter Plan of Treatment Not on file documented as of this encounter Visit Diagnoses Diagnosis BRBPR (bright red blood per rectum) Hemorrhage of rectum and anus Diarrhea, unspecified type Grade II hemorrhoids Unspecified hemorrhoids with other complication documented in this encounter Care Teams Public Area Supervisor Relationship Specialty Start Date End Date Nubia Botello, [facility] [address] [place] [address] PCP - General 01/16/14 01/28/19 documented as of this encounter
--- OUTSIDE RECORDS SUMMARY | 2024-04-03 16:05 | XMS_ITS | Encounter Summary ---
Author Organization [facility] [place] [address] Care Team Providers Care Head Loft Worker Name Role Phone Nubia Botello APRN Primary Care Provider + Reason for Referral * Consultation (Routine) - Closed Specialty Diagnoses / Procedures Referred By Dennis daniels Referred To Contact Rheumatology Diagnoses Arthralgia, unspecified joint Nubia Botello APRN [facility] [address] [place] [address] [facility] Rheumatology [address] [place] [id number] Referral ID Status Reason Start Date Expiration Date V isits Requested Visits Authorized [id number] Closed Specialty Service Requested 12/10/2016 12/10/2017 1 1 Reason for Visit * Reason Comments Other 2 week followup on f ribomalgia Diabetes followup, says she h as no machine at home to check her sugar?? wonders if she should have one ?? Encounter Details Date Type Department Care Team (Late st Contact Info) Description 12/10/2016 10:00 AM EDT Office Visit Internal Medicine at [address] [address] Nubia Botello FIRST HELPER [facility] [address] [place] [address] Arthralgia, unspecified joint (Primary Dx); Need for pneumococcal vaccine; Arthralgia of both hands; Pain in left wrist; Type 2 diabetes mellitus without complication, without long-term current use of insulin; Radiculopathy of lumbar region Social History Tobacco Use Types Packs/Day Years [...] Sign Reading Time Taken Comments Blood Pressure 153/90 12/10/2016 10:04 AM EDT Pulse 88 12/10/2016 10:04 AM EDT Temperature 37.4 ??C (99.3 ??F) 12/10/2016 9:57 AM ED T Respiratory Rate - - Oxygen Saturation 96% 12/10/2016 9:57 AM EDT Inhaled Oxygen Concentration - - Weight 105.1 kg (231 lb 12.8 oz) 12/10/2016 9:57 AM EDT Height 159.8 cm (5' 2.91) 12/10/2016 9:57 AM ED T reported Body Mass Index 41.18 12/10/2016 9:57 AM EDT documented in this encounter Patient Instructions * Patient Instructions* Nubia Botello APRN - 12/10/2016 10:00 AM EDT GOALS FOR YOUR DIABETES: - the goal A1C is less then 7% - the fasting blood glucose should be between 70-130 - Glucose 2 hours after meals should be less than 180. RULE OF 15 - if your glucose level is less than 70 and you do not feel well -then you should take 15 grams of carbs and recheck your glucose level in 15 minutes. - if it is still low after 15 minutes, take another 15 grams of carbs and recheck in 15 minutes - 15 grams of carbohydrates is: 4 ounces of orange juice 4 glucagon tablets (each tablet is about 4 grams of carbohydrates) Small juice box documented in this encounter Progress Notes * Nubia Botello APRN - 12/10/2016 10:00 AM EDT PCP: Nubia Botello APRN Chief Complaint Patient presents with ??? Other 2 week followup on fribomalgia ??? Diabetes followup, says she has no machine at home to check her sugar?? wonders if she should have one ?? SUBJECTIVE: Nancy Diego is a 51 y.o. female who presents for 2 week follow up on fibromyalgia and joint pain and diabetes. She is still having a lot of pain. She reports that the pain is about the same. She reports that pain worse with standing or sitting for long periods of time. She will get spasms in her bu ttocks and hips. She reports that sometimes the spasm will wake her at night. - taking the gabapentin and cymbalta and that is not helping. Urinary incontinence- still having incontinence at night. She has hard time making it to the bathroom when she wakes at night. Shoulder- left is worse than the right and radiates down to her elbow. She has some pain in the front of her shoulder. She tries to rub the area. Sometimes it will be constant, worse with using the shoulder. Neck and shoulder blade pain- radiates across her upper and midback. She has ongoing knee and anklepain. She reports pain just driving to the clinic today. Diabetes mellitus- she is interested in glucometer. She is doing well on her increased dose of metformin. - she lost 5 lbs since the last visit. Review of Systems Allergies Allergen Reactions ??? Latex Skin cracks and bleeds ??? Penicillins Rash Current Outpatient Prescriptions Medication Sig Dispense Refill ??? gabapentin (NEURONTIN) 300 mg Capsule Take 3 capsules by mouth 3 times daily. 270 capsule 3 ??? oxybutynin (DITROPAN-XL) 5 mg Tablet Extended Rel 24 hr Take 1 tablet by mouth daily. 30 tablet3 ??? DULoxetine (CYMBALTA) 20 mg Capsule, Delayed Release(E.C.) Take 2 capsules by mouth daily. May increase to 60 mg daily after one week. Indications: Fibromyalgia 60 tablet 11 ??? metFORMIN (GLUCOPHAGE-XR) 500 mg Tablet Sustained Release 24 hr Take 1 tablet by mouth daily. 30 tablet 12 ??? hydrochlorothiazide (HYDRODIURIL) 25 mg Tablet Take 1 tablet by mouth daily. 90 tablet 3 ??? albuterol (PROAIR HFA) [...] ??? Migraines G43.909 ??? Elevated blood pressure [id number] ??? Body mass index (BMI) of 39.0-39.9 in adult Z68.39 ??? Low back pain M54.5 ??? Type 2 diabetes mellitus without complication, without long-term current use of insulin E11.9 ??? Fatigue R53.83 OBJECTIVE: Vitals: 12/10/16 0957 12/10/16 1004 BP: 152/90 153/90 BP Location (NBP): Left arm Left arm Patient Position: Sitting Sitting BP Cuff Sizes: Large Adult (32-43 cm) Large Adult (32-43 cm) Pulse: 90 88 Temp: 37.4 ??C (99.3 ??F) TempSrc: Oral SpO2: 96% Weight: (!) 105.1 kg (231 lb 12.8 oz) Height: 159.8 cm (5' 2.91) PHYSICAL EXAM: Physical Exam Constitutional: She is oriented to person, place, and time. She appears well- developed and well-nourished. HENT: Head: Normocephalic and atraumatic. Pulmonary/Chest: Effort normal. Musculoskeletal: Lumbar back: She exhibits decreased range of motion, tenderness (paraspinal muscles bilaterally) and pain. She exhibits no bony tenderness and no swelling. Neurological: She is alert and oriented to person, place, and time. She has normal strength. No sensory deficit. Gait abnormal. Coordination normal. She displays no Babinski's sign on the left side. Skin: Skin is warm and dry. No rash noted. Psychiatric: She has a normal mood and affect. Her behavior is normal. Thought content normal. Vitals reviewed. ASSESSMENT & PLAN: Nancy was seen today for other and diabetes. Diagnoses and all orders for this visit: Need for pneumococcal vaccine - Pneumococcal polysaccharide vaccine 23-valent greater than or equal to 2yo subcutaneous/IM Arthralgia of both hands - XR Hand Min 3 views Bilat (Generic); Future Pain in left wrist - XR Wrist 2 views Left; Future Type 2 diabetes mellitus without complication, without long-term current use of insulin - U Albumin/Cre Ratio; Future - U Albumin/Cre Ratio - type II, poorly controlled, Patient doing ok on increased dose of metformin. Will continue at this dose for now, repeat a1c in about 3 months - education done on glucometer, and when to test and the goal for diabetes control. - patient will start to keep log of her readings. Arthralgia, unspecified joint - Referral to Rheumatology - pain in multiple joints, and elevated CRP, concern for inflammatory arthritis and want to rule this out. Will have patient see rheumatology for further evaluation. Will get xray of hands and left wrist which is painful for her. Arthalgia is symmetric in hands, shoulders, hips, knees and ankles. cyclobenzaprine (FLEXERIL) 10 mg Tablet; Take 1 tablet by mouth 3 times daily as needed for Muscle spasms. - lancets (FREESTYLE LANCETS) 28 gauge Misc; 1 each by Other route 3 times daily. Indications: Diabetes Mellitus - blood sugar diagnostic strips (FREESTYLE LITE STRIPS) Strip; 1 each by Other route 3 times daily.Use as instructed Indications: Diabetes Mellitus - blood-glucose meter (FREESTYLE LITE METER) Kit; 1 blood glucose meter. Indications: Diabetes Mellitus Lumbar Radiculopathy -low back muscle tenderness with radiculopathy. Had MRI in 2014 and has tolerated prednisone in past. She is on increased dose of metformin at this time. - maylgia as well and is tender in low back to palpation of paraspinal muscles. Will restart flexeril to see if will help with pain and discomfort. Continue on gabapentin and cymbalta at current doses. - cyclobenzaprine (FLEXERIL) 10 mg Tablet; Take 1 tablet by mouth 3 times daily as needed for Muscle spasms. - predniSONE (DELTASONE) 20 mg Tablet; Take 2 tablets by mouth daily for 5 days. documented in this encounter Plan of Treatment Scheduled Referrals Name Type Priority Associated Diagnoses Orde r Schedule Referral to Rheumatology Outpatient Referral Routine Arthralgia, unspecified joint Ordered: 12/10/2016 documented as of this encounter Procedures Procedure Name Priority Date/Time Associated Diagnosis Comments U ALBUMIN/CRE RATIO Routine 12/10/2016 1 2:30 PM EDT Type 2 diabetes mellitus without complication, without long-term current use of insulin documented in this encounter Results * (ABNORMAL) U Albumin/Cre Ratio (12/10/2016 12:30 PM EDT) Albumin / Creatinin Ratio, Urine 940(H) 0 - 29 mcg/mg Cr [facility] Comment: Reference Ranges: <30 mcg/mg: Normal [...] Supplements (2012) 2, 357? 362 Albumin, Urine 1,005.7 mg/L [facility] Comment:result rechecked-[facility] Creatinine, Urine 107 mg/dL [facility] Urine specimen (specimen) 12/10/2016 12:30 PM EDT 12/10/2016 7:51 PM EDT Narrative Resulting Agency Comment Spec In Lab Nubia Botello APRN URINE ORDERABLES [facility] [place] [address] * XR Hand Min 3 views Bilat (Generic) (12/10/2016 12:12 PM EDT) Anatomical Region Laterality Modality Hand Bilateral Digital Radiogra phy Impressions 12/10/2016 2:02 PM EDT Findings are most consistent with osteoarthritis. Joint space narrowing and osteophyte formation is evident at the right first carpal metacarpal joint and the distal interphalangeal joints. Narrative 12/10/2016 2:02 PM EDT EXAMINATION: XR HAND MIN 3 VIEWS BILAT (GENERIC) CLINICAL HISTORY: hand pain and left wrist pain TECHNIQUE: 4 views the hands and wrists were acquired bilaterally. COMPARISON: None FINDINGS: No discrete focal soft tissue swelling is identified No acro osteolysis. No periostitis. No osteitis. No soft tissue calcification. No retained foreign body. Interphalangeal joints: Joint space narrowing and osteophyte formation is present throughout. The osteophytes rotation is most pronounced at the distal interphalangeal joints. Metacarpal phalangeal joints: No joint space narrowing or malalignment. Lucency most consistent with subchondral cyst formation is seen at the radial aspect of the left third metacarpal head. Wrists: No joint space narrowing or erosive disease with the exception of the right first carpal metacarpal joint where joint space narrowing and mild subluxation is associated with sclerosis and osteophyte formation. Procedure Note Mario Alicea MD - 12/10/2016 EXAMINATION: XR HAND MIN 3 VIEWS BILAT (GENERIC) CLINICAL HISTORY: hand pain and left wrist pain TECHNIQUE: 4 views the hands and wrists were acquired bilaterally. COMPARISON: None FINDINGS: No discrete focal soft tissue swelling is identified No acro osteolysis. No periostitis. No osteitis. No soft tissue calcification. No retained foreign body. Interphalangeal joints: Joint space narrowing and osteophyte formationis present throughout. The osteophytes rotation is most pronounced at thedistal interphalangeal joints. Metacarpal phalangeal joints: No joint space narrowing or malalignment.Lucency most consistent with subchondral cyst formation is seen at the radialaspect of the left third metacarpal head. Wrists: No joint space narrowing or erosive disease with the exception ofthe right first carpal metacarpal joint where joint space narrowing and mild subluxation is associated with sclerosis and osteophyte formation. IMPRESSION Findings are most consistent with osteoarthritis. Joint space narrowingand osteophyte formation is evident at the right first carpal metacarpal jointand the distal interphalangeal joints. Nubia Botello APRN IMG DX ORDERABLE S * XR Wrist 2 views Left (12/10/2016 [...] documented in this encounter Visit Diagnoses Diagnosis Arthralgia, unspecified joint- Primary Need for pneumococcal vaccine Need for prophylactic vaccination against streptococcus pneumoniae (pneumococcus) Arthralgia of both hands Pain in left wrist Pain in joint, forearm Type 2 diabetes mellitus without complication, without long-term current use of insulin Radiculopathy of lumbar region Thoracic or lumbosacral neuritis or radiculitis, unspecified Arthralgia of both hands Pain in left wrist Pain in joint, forearm documented in this encounter Care Teams Head Loft Worker Relationship Specialty Start Date End Date Nubia Botello APRN [facility] [address] [address] PCP - General 01/16/14 01/28/19 documented as of this encounter
--- OUTSIDE RECORDS SUMMARY | 2024-04-03 16:05 | XMS_ITS | Encounter Summary ---
Author Organization [facility] [place] [address] Care Team Providers Care Grocery Stock Clerk Name Role Phone Rosmery, Nubia Lopez APRN Primary Care Provider + Reason for Visit * Reason Onset Date Comments Medication Refill 07/26/2017 Encounter Details Date Type Department Care Team (Late st Contact Info) Description 07/26/2017 Refill Internal Medicine at [address] [address] Consuelo Delaney RN Social History Tobacco Use [...] on filedocumented in this encounter Care Teams Grocery Stock Clerk Relationship Specialty Start Date End Date Nubia Botello APRN [facility] [address] [place] [address] PCP - General 01/16/14 01/28/19 documented as of this encounter
--- OUTSIDE RECORDS SUMMARY | 2024-04-03 16:05 | XMS_ITS | Encounter Summary ---
Author Organization [facility] [place] [address] Care Team Providers Care Title Inspector Name Role Phone Rosmery Nubia Lopez [facility] Primary Care Provider + Encounter Details Date Type Department Care Team (Late st Contact Info) Description 03/08/2017 Orders Only Internal Medicine at [address] [address] Nubia Botello [facility] [address] [place] [address] Proteinuria, unspecified type (Primary Dx) Social History Tobacco [...] as of this encounter Visit Diagnoses Diagnosis Proteinuria, unspecified type- Primary documented in this encounter Care Teams Title Inspector Relationship Specialty Start Date End Date Nubia Botello [facility] [address] [place] [address] PCP - General 01/16/14 01/28/19 documented as of this encounter
--- OUTSIDE RECORDS SUMMARY | 2024-04-03 16:05 | XMS_ITS | Encounter Summary ---
Author Organization [facility] [place] [address] Care Team Providers Care Electroplater Helper Name Role Phone Nubia Botello APRN Primary Care Provider + Encounter Details Date Type Department Care Team (Late st Contact Info) Description 12/03/2016 Telephone Internal Medicine at [address] [address] Nubia Botello APRN [facility] [address] GENERAL OFELIA [place], [place] [id number] Social History Tobacco Use Types Packs/Day Years [...] Telephone Encounter - Nubia Botello APRN - 12/03/2016 4:08 PM EDT Spoke to patient about her results, will have her increase metformin to 1000 mg daily, f/u with me in one week. She did tell me that she has lost her job. That she was told because she was not hurt at work that they needed her to resign b/c she could not perform her job duties any longer. documented in this encounter Plan of Treatment Not on file documented as of this encounter Visit Diagnoses Not on filedocumented in this encounter Care Teams Electroplater Helper Relationship Specialty Start Date End Date Nubia Botello APRN [facility] [address] [address] [place] [address] PCP - General 01/16/14 01/28/19 documented as of this encounter
--- OUTSIDE RECORDS SUMMARY | 2024-04-03 16:05 | XMS_ITS | Encounter Summary ---
Author Organization [facility] [place] [address] Care Team Providers Care Casino Worker Name Role Phone Nubia Botello GARY Primary Care Provider + Reason for Visit * Reason Comments Right Shoulder Pain * Surgical (Routine) - Closed Specialty Diagnoses / Procedures Referred By Dennis daniels Referred To Contact Orthopaedics Diagnoses Acute pain of right shoulder Rosmery, Nubia Lopez APRN [facility] [place] [address] [facility] [address] [place] [address] Referral ID Status Reason Start Date Expiration Date V isits Requested Visits Authorized [id number] Closed Specialty Service Requested 08/12/2017 08/12/2018 1 1 Encounter Details Date Type Department Care Team (Late st Contact Info) Description 08/26/2017 11:00 AM EST Office [place] [address] Shereen Kong, PA [facility] [place] [address] Acute pain of right shoulder Social History Tobacco Use Types Packs/Day Years [...] Sign Reading Time Taken Comments Blood Pressure 125/84 08/26/2017 10:59 AM EST Pulse 103 08/26/2017 10:59 AM EST Temperature - - Respiratory Rate - - Oxygen Saturation - - Inhaled Oxygen Concentration - - Weight 103.4 kg (228 lb) 08/26/2017 10:59 AM EST Height 162.6 cm (5' 4) 08/26/2017 10:59 AM EST Body Mass Index 39.14 08/26/2017 10:59 AM EST documented in this encounter Progress Notes * Shereen Kong PA - 08/26/2017 11:00 AM EST Chief complaint: Problem List Items Addressed This Visit Pain in right shoulder History of present illness: Nancy Diego is a 51 y.o. year-old female [id number], presenting with right shoulder pain nontraumatic in nature. She reports that she woke up 2 weeks ago to painin her right shoulder. She has a history complicated with fibromyalgia as well as diabetes and chronic pain. She reports that she had a sudden decrease in her range of motion. She was seen by her primary care provider who prescribed 5 days of prednisone. She has felt better while taking the prednisone. She had a prescription for oxycodone and was taking this as well as Tylenol Advil and gabapentin however became frustrated that her oxycodone was not working and flushed down the toilet. She has an appointment on Saturday for pain management as she now is needing to complete a new opioid contract. She also reports that she has shoulder pain now on her left as well as her left knee. She denies fever, chills, drenching night sweats Past medical history: Patient Active Problem List Diagnosis Date Noted ??? Pain in right shoulder 08/26/2017 ??? Fibromyalgia 05/28/2017 ??? Type 2 diabetes mellitus without complication, without long-term current use of insulin 11/28/2016 ??? Fatigue 11/28/2016 ??? Low back pain 09/22/2013 ??? Body mass index (BMI) of 39.0-39.9 in adult ??? Irritable bowel syndrome 04/21/2013 ??? GERD (gastroesophageal reflux disease) 04/21/2013 ??? Peptic ulcer disease 04/21/2013 ??? Migraines 04/21/2013 ??? Elevated blood pressure 04/21/2013 ??? Depression 04/13/2013 Medications: ??? DULoxetine (CYMBALTA) 60 mg Capsule, Delayed Release(E.C.) ??? metFORMIN (GLUCOPHAGE-XR) 500 mg Tablet Sustained Release 24 hr ??? atorvastatin (LIPITOR) 20 mg Tablet ??? aspirin 81 mg Tablet, Delayed Release (E.C.) ??? cyclobenzaprine (FLEXERIL) 10 mg Tablet ??? lisinopril (PRINIVIL;ZESTRIL) 20 mg Tablet ??? gabapentin (NEURONTIN) 300 mg Capsule ??? lancets (FREESTYLE LANCETS) 28 gauge Misc ??? blood sugar diagnostic strips (FREESTYLE LITE STRIPS) Strip ??? blood-glucose meter (FREESTYLE LITE METER) Kit ??? albuterol (PROAIR HFA) 90 mcg/actuation HFA Aerosol Inhaler ??? acetaminophen (TYLENOL) 500 mg tablet Allergies: Allergies Allergen Reactions ??? Latex Skin cracks and bleeds ??? Penicillins Rash Social history: Social History Substance Use Topics ??? Smoking status: Current Every Day Smoker Packs/day: 0.50 Types: Cigarettes ??? Smokeless tobacco: Never Used ??? Alcohol use No Review of systems: No chest pain or shortness of breath No fevers, night sweats or chills Vital signs: Most Recent Vitals: 08/26/17 1059 BP: 125/84 Pulse: (!) 103 Physical Exam: Tenderness to palpation on the anterior aspect of her shoulder Demonstrates 90?? of flexion 90?? of abduction Negative infraspinatus test Negative full can Negative empty can Negative belly press Negative Yergason's Intact motor function of the radial, median, and ulnar nerves. Intact sensation along radial, median, and ulnar nerve distributions. Good hand perfusion. Imaging: Personal review of the patient's imaging reveals: No fractures or dislocations noted. Adequate ulnohumeral joint space Assessment: 51 y.o. year-old female presenting with right shoulder pain Plan: We do long discussion about the nature of her discomfort. She feels very much that this is coming from the bone mass. Clinically she has no positive rotator cuff signs. Her range of motion is markedly better than her previous appointment with her primary care however is still limited. We discussed the challenging nature of diagnosing the origin of pain and differentiating this from her underlying chronic pain syndrome as well as fibromyalgia. The x-rays are reassuring in that there is no indication of fracture or dislocation. Her clinical exam is reassuring and that there is no indication of rotator cuff pathology. At this point I think her best treatment option would be anti-inflammatorymedications since the prednisone worked so well for her. We discussed taking 2 tablets of Aleve twice a day with food for the next 2 or 3 weeks. We discussed obtaining a physical therapy referral to work on her range of motion to avoid adhesive capsulitis however she is confident that she can work on this at home by herself. I would encourage her to keep her appointment with pain management as well as continue to be followed by her primary resident care provider. Follow up: As needed This plan was discussed with the patient and they are in agreement. All of the patient's questions were answered. Shereen Kong PA-C The above dictation was made with voice recogonition software documented in this encounter Plan of Treatment Scheduled Referrals Name Type Priority Associated Diagnoses Order Schedule Referral to Orthopaedics Outpatient Referral Routine Acute pain of right shoulder Ordered: 08/12/2017 documented as of this encounter Visit Diagnoses Diagnosis Acute pain of right shoulder documented in this encounter Care Teams Casino Worker Relationship Specialty Start Date End Date Nubia Botello APRN [facility] [address] [address] PCP - General 01/16/14 01/28/19 documented as of this encounter
--- OUTSIDE RECORDS SUMMARY | 2024-04-03 16:05 | XMS_ITS | Encounter Summary ---
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 Name Role Phone Nubia Botello APRN Primary Care Provider + Reason for Referral * Consultation (Routine) - Closed Specialty Diagnoses / Procedures Referred By Dennis daniels Referred To Contact Sleep Center Diagnoses KOSTA (obstructive sleep apnea) Tanja Stack MD [facility] [place] [address] [facility] Sleep Medicine [address] [place] [address] Referral ID Status Reason Start Date Expiration Date V isits Requested Visits Authorized [id number] Closed Consult, Test & Treat 03/29/2017 03/29/2018 1 1 Encounter Details Date Type Department Care Team (Late st Contact Info) Description 03/29/2017 1:00 PM EDT Office [place] [id number] Adina Atkinson DO [facility] [place] [address] Tanja Stack MD [facility] [place] [address] KOSTA (obstructive sleep apnea) Social History Tobacco Use Types Packs/Day Years [...] Sign Reading Time Taken Comments Blood Pressure 144/82 03/29/2017 12:29 PM EDT Pulse 96 03/29/2017 12:29 PM EDT Temperature - - Respiratory Rate - - Oxygen Saturation 97% 03/29/2017 12:29 PM EDT Inhaled Oxygen Concentration - - Weight 103.9 kg (229 lb) 03/29/2017 12:29 PM EDT Height 163.8 cm (5' 4.5) 03/29/2017 12:29 PM ED T Body Mass Index 38.7 03/29/2017 12:29 PM EDT documented in this encounter Patient Instructions * Patient Instructions* Tanja Stack MD - 03/29/2017 2:39 PM EDT Images from the original note were not included. [facility] Shoulder Bursitis: Exercises Your Care Instructions Here are some examples of typical rehabilitation exercises for your condition. Start each exercise slowly. Ease off the exercise if you start to have pain. Your doctor or physical therapist will tell you when you can start these exercises and which ones will work best for you. How to do the exercises Posterior stretching exercise 1. Hold the elbow of your injured arm with your other hand. 2. Use your hand to pull your injured arm gently up and across your body. You will feel a gentle stretch across the back of your injured shoulder. 3. Hold for at least 15 to 30 seconds. Then slowly lower your arm. 4. Repeat 2 to 4 times. Up-the-back stretch Note: Your doctor or physical therapist may want you to wait to do this stretch until you have regained most of your range of motion and strength. You can do this stretch in different ways. Hold any of these stretches for at least 15 to 30 seconds. Repeat them 2 to 4 times. 1. Put your hand in your back pocket. Let it rest there to stretch your shoulder. 2. With your other hand, hold your injured arm (palm outward) behind your back by the wrist. Pull your arm up gently to stretch your shoulder. 3. Next, put a towel over your other shoulder. Put the hand of your injured arm behind your back. Now hold the back end of the towel. With the other hand, hold the front end of the towel in front of your body. Pull gently on the front end of the towel. This will bring your hand farther up your backto stretch your shoulder. Overhead stretch 1. Standing about an arm's length away, grasp onto a solid surface. You could use a countertop, a doorknob, or the back of a sturdy chair. 2. With your knees slightly bent, bend forward with your arms straight. Lower your upper body, and let your shoulders stretch. 3. As your shoulders are able to stretch farther, you may need to take a step or two backward. 4. Hold for at least 15 to 30 seconds. Then stand up and relax. If you had stepped back during yourstretch, step forward so you can keep your hands on the solid surface. 5. Repeat 2 to 4 times. Shoulder flexion (lying down) Note: To make a wand for this exercise, use a piece of PVC pipe or a broom handle with the broom removed. Make the wand about a foot wider than your shoulders. 1. Lie on your back, holding a wand with both hands. Your palms should face down as you hold the wand. 2. Keeping your elbows straight, slowly raise your arms over your head. Raise them until you feel astretch in your shoulders, upper back, and chest. 3. Hold for 15 to 30 seconds. 4. Repeat 2 to 4 times. Shoulder rotation (lying down) Note: To make a wand for this exercise, use a piece of PVC pipe or a broom handle with the broom removed. Make the wand about a foot wider than your shoulders. 1. Lie on your back. Hold a wand with both hands with your elbows bent and palms up. 2. Keep your elbows close to your body, and move the wand across your body toward the sore arm. 3. Hold for 8 to 12 seconds. 4. Repeat 2 to 4 times. Shoulder blade squeeze 1. Stand with your arms at your sides, and squeeze your shoulder blades together. Do not raise yourshoulders up as you squeeze. 2. Hold 6 seconds. 3. Repeat 8 to 12 times. Shoulder flexor and extensor exercise Note: These are isometric exercises. That means you contract your muscles without actually moving. ?? Push forward (flex): Stand facing a wall or doorjamb, about 6 inches or less back. Hold your injured arm against your body. Make a closed fist with your thumb on top. Then gently push your hand forward into the wall with about 25% to 50% of your strength. Don't let your body move backward as youpush. Hold for about 6 seconds. Relax for a few seconds. Repeat 8 to 12 times. ?? Push backward (extend): Stand with your back flat against a wall. Your upper arm should be against the wall, with your elbow bent 90 degrees (your hand straight ahead). Push your elbow gently backagainst the wall with about 25% to 50% of your strength. Don't let your body move forward as you push. Hold for about 6 seconds. Relax for a few seconds. Repeat 8 to 12 times. Scapular exercise: Wall push-ups Note: This exercise is best done with your fingers somewhat turned out, rather than straight up anddown. 1. Stand facing a wall, about 12 inches to [address] your hands on the wall at shoulder height. 3. Slowly bend your elbows and bring your face to the wall. Keep your back and hips straight. 4. Push back to where you started. 5. Repeat 8 to 12 times. 6. When you can do this exercise against a wall comfortably, you can try it against a counter. You can then slowly progress to the end of a couch, then to a sturdy chair, and finally to the floor. Scapular exercise: Retraction Note: For this exercise, you will need elastic exercise material, such as surgical tubing or Thera-Band. 1. Put the band around a solid object at about waist level. (A bedpost will work well.) Each hand should hold an end of the band. 2. With your elbows at your sides and bent to 90 degrees, pull the band back. Your shoulder blades should move toward each other. Then move your arms back where you started. 3. Repeat 8 to 12 times. 4. If you have good range of motion in your shoulders, try this exercise with your arms lifted out to the sides. Keep your elbows at a 90-degree angle. Raise the elastic band up to about shoulder level. Pull the band back to move your shoulder blades toward each other. Then move your arms back where you started. Internal rotator strengthening exercise 1. Start by tying a piece of elastic exercise material to a doorknob. You can use surgical tubing or Thera-Band. 2. Stand or sit with your shoulder relaxed and your elbow bent 90 degrees. Your upper arm should rest comfortably against your side. Squeeze a rolled towel between your elbow and your body for comfort. This will help keep your arm at your side. 3. Hold one end of the elastic band in the hand of the painful arm. 4. Slowly rotate your forearm toward your body until it touches your belly. Slowly move it back to where you started. 5. Keep your elbow and upper arm firmly tucked against the towel roll or at your side. 6. Repeat 8 to 12 times. External rotator strengthening exercise 1. Start by tying a piece of elastic exercise material to a doorknob. You can use surgical tubing or Thera-Band. (You may also hold one end of the band in each hand.) 2. Stand or sit with your shoulder relaxed and your elbow bent 90 degrees. Your upper arm should rest comfortably against your side. Squeeze a rolled towel between your elbow and your body for comfort. This will help keep your arm at your side. 3. Hold one end of the elastic band with the hand of the painful arm. 4. Start with your forearm across your belly. Slowly rotate the forearm out away from your body. Keep your elbow and upper arm tucked against the towel roll or the side of your body until you begin to feel tightness in your shoulder. Slowly move your arm back to where you started. 5. Repeat 8 to 12 times. Follow-up [...] more? Visit our health information library at [email or web address]. You can also view health information on [employer], your personal patient account. Log in or sign uptoday. Enter Z022 in the search box to learn more about Shoulder Bursitis: Exercises. Current as of: September 11, 2016 Content Version: 11.3 ?? 2809-0104 [employer]. Care instructions adapted under license by [facility]. If you have questions about a medical condition or this instruction, always ask your healthcare professional. [employer] disclaims any warranty or liability for your use of this information. [facility] Patellofemoral Pain Syndrome (Runner's Knee): Exercises Your Care Instructions Here are some examples of typical rehabilitation exercises for your condition. Start each exercise slowly. Ease off the exercise if you start to have pain. Your doctor or physical therapist will tell you when you can start these exercises and which ones will work best for you. How to do the exercises Calf wall stretch 5. Stand facing a wall with your hands on the wall at about eye level. Put your affected leg about a step behind your other leg. 6. Keeping your back leg straight and your back heel on the floor, bend your front knee and gently bring your hip and chest toward the wall until you feel a stretch in the calf of your back leg. 7. Hold the stretch for at least 15 to 30 seconds. 8. Repeat 2 to 4 times. 9. Repeat steps 1 through 4, but this time keep your back knee bent. Quadriceps stretch 4. If you are not steady on your feet, hold on to a chair, counter, or wall. 5. Bend your affected leg, and reach behind you to grab the front of your foot or ankle with the hand on the same side. For example, if you are stretching your right leg, use your right hand. 6. Keeping your knees next to each other, pull your foot toward your buttock until you feel a gentle stretch across the front of your hip and down the front of your thigh. Your knee should be pointeddirectly to the ground, and not out to the side. 7. Hold the stretch for at least 15 to 30 seconds. 8. Repeat 2 to 4 times. Hamstring wall stretch 1. Lie on your back in a doorway, with your good leg through the open door. 2. Slide your affected leg up the wall to straighten your knee. You should feel a gentle stretch down the back of your leg. ?? Do not arch your back. ?? Do not bend either knee. ?? Keep one heel touching the floor and the other heel touching the wall. Do not point your toes. 3. Hold the stretch for at least 1 minute. Then over time, try to lengthen the time you hold the stretch to as long as 6 minutes. 4. Repeat 2 to 4 times. If you do not have a place to do this exercise in a doorway, there is another way to do it: 5. Lie on your back, and bend your affected leg. 6. Loop a towel under the ball and toes of that foot, and hold the ends of the towel in your hands. 7. Straighten your knee, and slowly pull back on the towel. You should feel a gentle stretch down the back of your leg. 8. Hold the stretch for at least 15 to 30 seconds. Or even better, hold the stretch for 1 minute ifyou can. 9. Repeat 2 to 4 times. Quad sets 5. Sit with your affected leg straight and supported on the floor or a firm bed. Place a small, rolled-up towel under your affected knee. Your other leg should be bent, with that foot flat on the floor. 6. Tighten the thigh muscles of your affected leg by pressing the back of your knee down into the towel. 7. Hold for about 6 seconds, then rest for up to 10 seconds. 8. Repeat 8 to 12 times. Straight-leg raises to the front 4. Lie on your back with your good knee bent so that your foot rests flat on the floor. Your affected leg should be straight. Make sure that your low back has a normal curve. You should be able to slip your hand in between the floor and the small of your back, with your palm touching the floor and your back touching the back of your hand. 5. Tighten the thigh muscles in your affected leg by pressing the back of your knee flat down to the floor. Hold your knee straight. 6. Keeping the thigh muscles tight and your leg straight, lift your affected leg up so that your heel is about 12 inches off the floor. 7. Hold for about 6 seconds, then lower your leg slowly. Rest for up to 10 seconds between repetitions. 8. Repeat 8 to 12 times. Straight-leg raises to the back 1. Lie on your stomach, and lift your leg straight up behind you (toward the ceiling). 2. Lift your toes about 6 inches off the floor, hold for about 6 seconds, then lower slowly. 3. Do 8 to 12 repetitions. Wall slide with ball squeeze 7. Stand with your back against a wall and with your feet about shoulder-width apart. Your feet should be about 12 inches away from the wall. 8. Put a ball about the size of a soccer ball between your knees. Then slowly slide down the wall until your knees are bent about 20 to 30 degrees. 9. Tighten your thigh muscles by squeezing the ball between your knees. Hold that position for about 10 seconds, then stop squeezing. Rest for up to 10 seconds between repetitions. 10. Repeat 8 to 12 times. Follow-up care is a perkins part of your treatment and safety. Be sure to make and go to all appointments, and call your doctor if you are having problems. It's also a good idea to know your test resultsand keep a list of the medicines you take. Where can you learn more? Visit our [employer] information library at [email or web address]. You can also view health information on [employer], your personal patient account. Log in or sign uptoday. Enter A404 in the search box to learn more about Patellofemoral Pain Syndrome (Runner's Knee): Exercises. Current as of: September 11, 2016 Content Version: 11.3 ?? 2459-6453 [employer]. Care instructions adapted under license by [facility]. If you have questions about a medical condition or this instruction, always ask your healthcare professional. [employer] disclaims any warranty or liability for your use of this information. [facility] Knee Arthritis: Exercises Your Care Instructions Here are some examples of exercises for knee arthritis. Start each exercise slowly. Ease off the exercise if you start to have pain. Your doctor or physical therapist will tell you when you can start these exercises and which ones will work best for you. How to do the exercises Knee flexion with heel slide 10. Lie on your back with your knees bent. 11. Slide your heel back by bending your affected knee as far as you can. Then hook your other footaround your ankle to help pull your heel even farther back. 12. Hold for about 6 seconds, then rest for up to 10 seconds. 13. Repeat 8 to 12 times. 14. Switch legs and repeat steps 1 through 4, even if only one knee is sore. Quad sets 9. Sit with your affected leg straight and supported on the floor or a firm bed. Place a small, rolled-up towel under your knee. Your other leg should be bent, with that foot flat on the floor. 10. Tighten the thigh muscles of your affected leg by pressing the back of your knee down into the towel. 11. Hold for about 6 seconds, then rest for up to 10 seconds. 12. Repeat 8 to 12 times. 13. Switch legs and repeat steps 1 through 4, even if only one knee is sore. Straight-leg raises to the front 6. Lie on your back with your good knee bent so that your foot rests flat on the floor. Your affected leg should be straight. Make sure that your low back has a normal curve. You should be able to slip your hand in between the floor and the small of your back, with your palm touching the floor and your back touching the back of your hand. 7. Tighten the thigh muscles in your affected leg by pressing the back of your knee flat down to the floor. Hold your knee straight. 8. Keeping the thigh muscles tight and your leg straight, lift your affected leg up so that your heel is about 12 inches off the floor. Hold for about 6 seconds, then lower slowly. 9. Relax for up to 10 seconds between repetitions. 10. Repeat 8 to 12 times. 11. Switch legs and repeat steps 1 through 5, even if only one knee is sore. Active knee flexion 10. Lie on your stomach with your knees straight. If your kneecap is uncomfortable, roll up a washcloth and put it under your leg just above your kneecap. 11. Lift the foot of your affected leg by bending the knee so that you bring the foot up toward your buttock. If this motion hurts, try it without bending your knee quite as far. This may help you avoid any painful motion. 12. Slowly move your leg up and down. 13. Repeat 8 to 12 times. 14. Switch legs and repeat steps 1 through 4, even if only one knee is sore. Quadriceps stretch (facedown) 9. Lie flat on your stomach, and rest your face on the floor. 10. Wrap a towel or belt strap around the lower part of your affected leg. Then use the towel or belt strap to slowly pull your heel toward your buttock until you feel a stretch. 11. Hold for about 15 to 30 seconds, then relax your leg against the towel or belt strap. 12. Repeat 2 to 4 times. 13. Switch legs and repeat steps 1 through 4, even if only one knee is sore. Stationary exercise bike If you do not have a stationary exercise bike at home, you can find one to ride at your local health club or community center. 9. Adjust the height of the bike seat so that your knee is slightly bent when your leg is extended downward. If your knee hurts when the pedal reaches the top, you can raise the seat so that your knee does not bend as much. 10. Start slowly. At first, try to do 5 to 10 minutes of cycling with little to no resistance. Thenincrease your time and the resistance bit by bit until you can do 20 to 30 minutes without pain. 11. If you start to have pain, rest your knee until your pain gets back to the level that is normalfor you. Or cycle for less time or with less effort. Follow-up care is a perkins part of your treatment and safety. Be sure to make and go to all appointments, and call your doctor if you are having problems. It's also a good idea to know your test resultsand keep a list of the medicines you take. Where can you learn more? Visit our health information library at [email or web address]. You can also view health information on [employer], your personal patient account. Log in or sign uptoday. Enter C159 in the search box to learn more about Knee Arthritis: Exercises. Current as of: September 11, 2016 Content Version: 11.3 ?? 0494-2423 [employer]. Care instructions adapted under license by [facility]. If you have questions about a medical condition or this instruction, always ask your healthcare professional. [employer] disclaims any warranty or liability for your use of this information. documented in this encounter Progress Notes * Tanja Stack MD - 03/29/2017 1:00 PM EDT Rheumatology Outpatient Consultation Note Reason for Consult: Nancy Diego is a 51 y.o. female who we are seeing at the request of Nubia Botello for evaluation of joint pain. History of Present Illness: Nancy Diego is a 51 y.o. female who presents today for evaluation of joint pain. She reports jointpain since her late 20s, initially in her knees. Her joint pain involves all of her joints: shoulders, elbows, wrists and hands, will have trigger fingers, hips, knees, ankles and toes. She will havespasms in her toes. She has had swelling in her hands, knees and ankles. She feels like her L shoulder is more protruded than her right. She will have swelling in her toes which look like sausages. Hands will feel very tight when they are swollen, she also had thumb pain. In general her joints feel worse with use. She will have stiffness in her shoulders and low back which does not improve with use. She notes poor quality sleep, has trouble both falling asleep and staying asleep. She was diagnosed with KOSTA about 15 years, but never used CPAP. She is supposed to use oxygen at night but does not use it. She feels tired all the time and gets chronic headaches; takes excedrine or tylenol (1000mg) with ibuprofen (800mg) which may or may not work. The excedrin has some benefit with her joint pain. She was on prednisone earlier this year for respiratory issues but does not recall that it made her joints feel better. She has been prediabetic for years, but most recent A1c was 7 and she was started on metformin. Deidra also had vision issues, has been told she has bleeding vessels in the back of her eyes with significant change in her vision. She noted increasing blurry vision over the past 4 months, her vending attendant is waiting to change her prescription until her diabetes is better controlled. She has a h/o elevated LFTs, was told it is fatty liver, no further testing has been done. She has had diarrhea since the age of 17 when she had her gall bladder removed. She has a recent colonoscopy (02/05/17) which showed Internal hemorrhoids, diverticulosis but otherwise was normal. She recently saw surgery for her hematochezia, they tried banding her hemorrhoids but she did not tolerate the procedure, she was give Anusol suppositories to reduce inflammation but medication was too expensive. She was also given cholestyramine for her diarrhea which may be a component of post cholecystectomy diarrhea due to bile salts, but she has not tried using this either. Rheumatic history (+) means positive Iritis - Dactylitis ? Pleuritis - Pericarditis - Oral / Nasal Ulcers - PE/DVT - Raynaud???s - Psoriasis - Review of Systems: (+) = positive response. Comments are only made for responses that are changed from previous, not discussed in HPI, or otherwise require clarification. Systemic Comments + 1. Generalized pain + 2. Fatigue/tiredness - 3. Fevers - 4. Chills + 5. Night sweats Since hysterectomy - 6. Recent weight loss - 7. Recent Weight gain Head and neck + 8. Headaches Recurrent migraines - 9. Neck pain/stiffness - 10. Lymphadenopathy - 11. Ocular erythema - 12. Xerophthalmia - 13. Oral sores + 14. Xerostomia 15. Jaw claudication Cardiopulmonary + 16. Chest discomfort Brought on with and without activity + 17. Dyspnea With activity + 18. Cough - 19. Hemoptysis Gastrointestinal - 20. Dysphagia + 21. Heartburn + 22. Nausea - 23. Emesis - 24. Abdominal pain - 25. Hematochezia - 26. Diarrhea Genitourinary - 27. Hematuria - 28. Dysuria Neuropsychiatric - 29. Cognitive problems - 30. Initial insomnia - 31. Night awakenings - 32. Nonrestorative sleep Dermatologic - 33. Photosensitivity - 34. Rash Medical History: Patient Active Problem List Diagnosis Code ??? Depression F32.9 ??? Irritable bowel syndrome K58.9 ??? GERD (gastroesophageal reflux disease) K21.9 ??? Peptic ulcer disease K27.9 ??? Migraines G43.909 ??? Elevated blood pressure [id number] ??? Body mass index (BMI) of 39.0-39.9 in adult Z68.39 ??? Low back pain M54.5 ??? Type 2 diabetes mellitus without complication, without long-term current use of insulin E11.9 ??? Fatigue R53.83 Family Hx: Family History Problem Relation Age of Onset ??? Cancer Mother cervical ??? Glaucoma Father ??? Cancer Maternal Aunt breast cancer ??? Diabetes Maternal Aunt ??? 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 ??? cholestyramine (QUESTRAN) 4 gram Powder in Packet Take 1 packet by mouth daily. (Patient not taking: Reported on 03/29/2017) 60 each 12 No current facility-administered medications on file prior to visit. Allergies: Allergies Allergen Reactions ??? Latex Skin cracks and bleeds ??? Penicillins Rash Physical Examination: BP 144/82 Pulse 96 Ht 163.8 cm (5' 4.5) Wt (!) 103.9 kg (229 lb) SpO2 97% BMI 38.7 kg/m2 General: Well appearing, NAD HEENT: Mucous membranes are moist, no oral mucosal ulcerations, poor dentition Neck: Supple, no lymphadenopathy Cardiovascular: RRR, no m/r/g, normal S1/S2 Lungs: CTA b/l no w/r/r Abdomen: Soft, nontender Neuro: Alert and oriented x3. No focal deficits Skin: no rashes or lesions noted Nails: no nail pitting, onycholysis or periungual erythema noted. MSK: diffuse tenderness even with light touch including her chest, upper and lower back, elbow, hips and knees Musculoskeletal system: (???NML?? means normal; No swelling, warmth, tenderness, loss of range of motion, or deformity as applicable) Hands: MCP???s: + tenderness over 2/3rd MCP, slight fullness, + MCP compression tenderenss, 3-4th PIP tenderness, DIP???s: NML, limited claw Wrists: FROM, + tenderness with flexion, no warmth or synovitis Elbows: NML Shoulders: Limited ROM 90deg with abduction 2/2 to pain, TTP over SAB b/l, + ramírez b/l Cervical Spine: NML Thoracic Spine: NML Lumbosacral Spine: NML Hips: NML Knees: NML Ankles: NML Feet: NML, neg mtp compression Laboratory Data: Ref. Range 08/11/2013 12:15 01/16/2016 10:18 01/23/2016 10:13 11/26/2016 10:55 01/28/2017 11:40 MARCE Latest Ref Range: Neg Neg Anti-Cyc Cit Peptide Latest Ref Range: <=17.0 unit/mL <8.0 RF Latest Ref Range: <=14 IU/mL <10 CRP Latest Ref Range: <=4.9 mg/L 32.4 (H) 52.9 (H) CRP High Sens Latest Units: mg/L 33.7 30.0 SS-A/Ro Ab Latest Ref Range: <1.0 (Negative) U <0.2 SS-B/La Ab Latest Ref Range: <1.0 (Negative) U <0.2 Studies: Hand xray (12/10/2016) IMPRESSION Findings are most consistent with osteoarthritis. Joint space narrowing and osteophyte formation is evident at the right first carpal metacarpal joint and the distal interphalangeal joints. MRI L-spine (07/2014) IMPRESSION: Mild degenerative disc disease and facet arthropathy of the lower lumbar spine as described above. No visible nerve root impingement. Assessment/Plan: Ms. Diego is a 51 y/o F with recently diagnosed DM, untreated sleep apnea and long standing joint pain who presents today for evaluation of joint pain and elevated inflammatory markers. With regards to her joint pain, she has diffuse pain, some of which is MSK and some of it is joint pain. On exam, she has some tenderness and fullness of her MCPs however, we performed a MSK ultrasound which showed no evidence of synovitis or inflammatory changes. She also has hand xrays which do not show any inflammatory changes and are more consistent with osteoarthritis. Nancy has diffuse MSK tenderness as well with many positive trigger point tenderness and coupled with her widespread pain index of >7 and symptom severity scale score >5 she certainly has fibromyalgia; which is a something she has been diagnosed with in the past. Her diffuse pain is most likely 2/2 to osteoarthritisand fibromyalgia rather than an inflammatory arthritis. She has long standing untreated sleep apnea and is also noncompliant with her night time oxygen which certainly contributes to her chronic fatigue and headaches. We will refer her for a sleep study and discussed the importance of treating her sleep apnea. She is also a newly diagnosed diabetic who 1 year ago had triglyceride leves >500 which is currently untreated. She also has chest pain that comes on with activity and rest which is concerning forpossible cardiac etiology given all her risk factors. We would recommend retesting her lipids, treating her hypertriglyceridemia and referring her to cardiology for a more extensive evaluation of herchest pain. We also discussed the importance of smoking cessation and changing her diet given that she is obeseand a new diabetic. She drinks a lot of sugary drinks and admits that years ago when she stopped she lost 60lbs; abstaining from sugary drinks alone would likely be of great benefit to her. She has been struggling with her weight for many years, and at one point had Considered bariatric surgery butthis was put on hold so she could take care of mother. If she is not able to loose weight through diet and exercise, surgery may be a good options for her in the future. With regards to her elevated inflammatory markers, she has a negative RF, CCP, MARCE, SSA and SSB. She has many risk factors for elevated inflammatory markers that are not rheumatologic including her obesity, smoking, diabetes and hypertriglyceridemia. Studies have shown that elevated inflammatory markers are an independent risk factor for developing diabetes and CRP levels tend to be higher in people with diabetes compared to non-diabetics. CRP levels also tend to correlate with HA1c. Fow now we would recommend topical NSAIDs for her joint pain as she already has proteinuria and chronic NSAID use could worsen her renal function. For her FM she is already on Cymbalta, Neurontin, and Flexeril; her Cymbalta dose is only 20mg and this could certainly be titrated to 60mg daily, but perhaps more important is treating her KOSTA. RTC in 3 months The patient was seen and discussed with Dr. Atkinson. Tanja Stack MD Rheumatology Fellow, PGY-5 * Adina Atkinson, DO - 03/29/2017 1:00 PM EDT ATTENDING ADDENDUM The patient's history was reviewed, and I interviewed and examined the patient with Dr. Stack. I agree with her summary, findings, and plan. Patient is a 51 yof with widespread chronic pain, fatigue, poor sleep along w elevated markers of inflammation. Exam and us failed to show any synovitis in her mcps, pips, wrists. 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 Her labs show elevation in her CRP which correlates with metoblic syndrome and with each component of metabolic syndrome the crp continues to increas, I don't believe her crp is related, to an underlying rheumatic disease but to: Obesity. Diabetes, uncontrolled tg of >500, fatty liver and cardiovascular risk. Recommend evaluation of her cardiac risk factors and consider referral to cardiology.Patient was advised that with any further chest pain she needs to go to the ED. documented in this encounter Plan of Treatment Scheduled Referrals Name Type Priority Associated Diagnoses Orde r Schedule Referral to Sleep Disorders Center Outpatient Referral Routine KOSTA (obstructive sleep apnea) Ordered: 03/29/2017 documented as of this encounter Visit Diagnoses Diagnosis KOSTA (obstructive sleep apnea) Obstructive sleep apnea (adult) (pediatric) documented in this encounter Care Teams Knitting Machine Fixer Head Relationship Specialty Start Date End Date Nubia Botello, [facility] [place] [address] PCP - General 01/16/14 01/28/19 documented as of this encounter
--- OUTSIDE RECORDS SUMMARY | 2024-04-03 16:05 | XMS_ITS | Encounter Summary ---
Author Organization [facility] [place] [address] Care Team Providers Care Head Golf Coach Name Role Phone Rosmery, Nubia Lopez APRN Primary Care Provider + Reason for Visit * Reason Onset Date Comments Medication Refill 10/08/2017 Encounter Details Date Type Department Care Team (Late st Contact Info) Description 10/08/2017 Refill Internal Medicine at [address] [address] Chhaya Cee, JAYSON Social History Tobacco Use [...] on filedocumented in this encounter Care Teams Head Golf Coach Relationship Specialty Start Date End Date Nubia Botello APRN [facility] [address] [place] [address] PCP - General 01/16/14 01/28/19 documented as of this encounter
--- OUTSIDE RECORDS SUMMARY | 2024-04-03 16:05 | XMS_ITS | Encounter Summary ---
Author Organization [facility] [place] [address] Care Team Providers Care Ticket Seller Name Role Phone Nubia Botello APRN Primary Care Provider + Reason for Referral * Surgical (Routine) - Closed Specialty Diagnoses / Procedures Referred By Dennis daniels Referred To Contact Orthopaedics Diagnoses Acute pain of right shoulder Nubia Botello APRN [facility] [place] [address] [facility] [address] [place] [id number] Referral ID Status Reason Start Date Expiration Date V isits Requested Visits Authorized [id number] Closed Specialty Service Requested 08/12/2017 08/12/2018 1 1 Encounter Details Date Type Department Care Team (Latest Contact Info) Description 08/12/2017 Unscheduled [place]counter [place] [address] Nubia Botello MOTEL MANAGER [facility] [place] [address] Acute pain of right shoulder Social History [...] Progress Notes * Nubia Botello APRN - 08/12/2017 4:32 PM EST PCP: Nubia Botello APRN No chief complaint on file. Unscheduled visit- she is here with her daughter and has CC of right shoulder pain and weakness. SUBJECTIVE: Nancy Diego is a 51 y.o. female with history of fibromyalgia, DM and chronic pain who presents forsevere sudden shoulder pain that started within the last week. She reports that she woke up with pain and weakness in her right shoulder. She has difficulty with getting dressed and cannot lift things with right arm. She did not find anything to help the pain. She has tried OTC patches. She took some of her oxycodone with tylenol, that she has for her chronic low back pain and fibromyalgia. She said that they did not work, so she dumped them down the drain. Review of Systems Constitutional: Positive for fatigue. Negative for chills and fever. Musculoskeletal: Positive for arthralgias, back pain and myalgias. Allergies Allergen Reactions ??? Latex Skin cracks and bleeds ??? Penicillins Rash Current Outpatient Prescriptions Medication Sig Dispense Refill ??? oxyCODONE (ROXICODONE) 5 mg Tablet Take 1 tablet by mouth every 6 hours as needed for Pain. 84 tablet 0 ??? DULoxetine (CYMBALTA) 60 mg [...] by mouth daily. 30 tablet 3 ??? cyclobenzaprine (FLEXERIL) 10 mg Tablet Take 1 tablet by mouth 3 times daily as needed for Muscle spasms. 90 tablet 3 ??? diclofenac (VOLTAREN) 1 % Gel Apply 2 g topically 4 times daily. 100 g 3 ??? cholestyramine (QUESTRAN) 4 gram Powder in Packet Take 1 packet by mouth daily. 60 each 12 ??? lisinopril (PRINIVIL;ZESTRIL) 20 mg Tablet Take [...] ??? Migraines G43.909 ??? Elevated blood pressure [id number] ??? Body mass index (BMI) of 39.0-39.9 in adult Z68.39 ??? Low back pain M54.5 ??? Type 2 diabetes mellitus without complication, without long-term current use of insulin E11.9 ??? Fatigue R53.83 ??? Fibromyalgia M79.7 OBJECTIVE: There were no vitals filed for this visit. PHYSICAL EXAM: Physical Exam Constitutional: She appears distressed. Musculoskeletal: Right shoulder: She exhibits decreased range of motion (unable to abduct or flex greater than 20 degrees ), tenderness (with palpation of anterior and posterior shoulder), pain and decreased strength. She exhibits no deformity. Psychiatric: She exhibits a depressed mood. ASSESSMENT & PLAN: Diagnoses and all orders for this visit: Acute pain of right shoulder - Referral to Orthopaedics - XR Shoulder Right (Generic); Future - predniSONE (DELTASONE) 20 mg Tablet; Take 2 tablets by mouth daily for 5 days. - patient did not have relief with narcotic pain medication. Will give her prednisone to see if will help with inflammation. Suspect that she may have some bursitis and possible frozen shoulder related to not moving it. Cannot rule out rotator cuff tear given that she has such limited mobility, butwould not expect it given that she woke up with the pain and weakness and did not have a known trauma. documented in this encounter Plan of Treatment Scheduled Referrals Name Type Priority Associated Diagnoses Order Schedule Referral to Orthopaedics Outpatient Referral Routine Acute pain of right shoulder Ordered: 08/12/2017 documented as of this encounter Results * XR Shoulder Right [...] Diagnoses Diagnosis Acute pain of right shoulder Acute pain of right shoulder documented in this encounter Care Teams Ticket Seller Relationship Specialty Start Date End Date Nubia Botello APRN [facility] [id number] PCP - General 01/16/14 01/28/19 documented as of this encounter
--- OUTSIDE RECORDS SUMMARY | 2024-04-03 16:05 | XMS_ITS | Encounter Summary ---
Author Organization Formerly [facility] [place] [address] Care Team Providers Care Premix Concrete Batcher Name Role Phone Nubia Botello APRN Primary Care Provider + Encounter Details Date Type Department Care Team (Late st Contact Info) Description 02/05/2017 10:03 AM EDT Anesthesia [place] [id number] Emy Gonzales MD [facility] [address] [place] [address] Mohinder Smith CRNA [facility] [place] [address] Anesthesia Record Procedure Summary Procedure Name Responsible Anesthesiologist Anesthesia Start Time Anesthesia Stop Time COLONOSCOPY, DIAGNOSTIC (WRVU 3.26) (Trunk) Emy Gonzales MD 02/05/17 1003 02/05/17 1035 Events Date Time Event Comment 02/05/2017 0905 1003 Start 1006 AN Verify 1006 An Start Data 1008 An Induction 1008 Anesthesia Ready 1035 an stop data 1035 Recovery or ICU Handoff Myla ent care was transferred to the destination unit staff after review of the patient's medical history, current anesthetic/surgical status and plan, according to the Provider Handoff Checklist. 1035 Stop Meds Name Total IV Lidocaine 50 mg Propofol 100 mg Propofol INF 557.57 mg lactated Ringers infusion 1,000 mL 700 m L * Agents Name O2 Auxiliary Flowmeter 1 * Blood No blood administrations on file. Lines, Drains, and Airways Type Details Placement Removal (RETIRED) Peripheral IV Line - Single Lumen 02/05/17; 0915; basilic vein (medial side of arm), right; [id number] catheter system; 20 gauge; Yoana Servin RN; distraction, intradermal injection, tolerated well, appears comfortable; 1; Location1: (select this item first), metacarpal vein (top of hand), right, no redness, ecchymosis, warmth, swelling, pain, drainage; 10/07/17 (Auto removal via utility); 920 (Auto removal via utility) 02/05/17 0915 by Maria T Servin RN 10/07/17 0921 by Similar Pages, User documented in this encounter Social History Tobacco Use Types Packs/Day Years Used Date Smoking Tobacco: Every Day Cigarettes Smokeless Tobacco: Never Alcohol Use Standard Drinks/Week Comments No 0 (1 standard drink = 0.6 oz pur e alcohol) Sex and Gender Information Value Date Recorded Sex Assigned at Not on file Gender Identity Not on file Sexual Orientation Not on file documented as of this encounter OR Notes * Anesthesia Postprocedure Evaluation - Emy Gonzales MD - 02/05/2017 1:47 PM EDT [facility] [place] Anesthesiology Post-procedure Note Patient: Nancy Diego Procedure Summary Date Anesthesia Start Anesthesia Stop Room / Location 02/05/17 1003 1035 [facility] ENDO 6 / [facility] ENDOSCOPY Procedure Diagnosis Surgeon Responsible Provider COLONOSCOPY, DIAGNOSTIC (N/A Trunk) (BRBPR - CONSULT) Floyd Lopez MD Peters, Julia C, MD All Anesthesia Providers: Anesthesiologist: Emy Gonzales MD WAREHOUSE ORDER SELECTOR: Mohinder Smith CRNA Patient Vitals for the past 8 hrs: BP Pulse SpO2 Height Weight 02/05/17 1100 142/79 - 94 % - - 02/05/17 1045 144/78 - 94 % - - 02/05/17 1040 155/71 - 95 % - - 02/05/17 1038 155/71 - - - - 02/05/17 0851 (!) 157/95 87 96 % 162.6 cm (5' 4) (!) 105.7 kg (233 lb) Patient Location: PACU/[facility] Level of Consciousness: Awake and Alert Pain Management: Satisfactory Analgesia PONV: None Cardiovascular Status: At Baseline and Hemodynamically Stable Respiratory Status: At Baseline and Room Air Postoperative Fluid Status: Intravascular EUvolemia Possible Anesthetic Complications: NONE apparent at time of evaluation Final Primary Anesthesia Type: General (The anesthetic type performed was the same as planned.) Comments: Emy Gonzales MD * Anesthesia Preprocedure Evaluation - Emy Gonzales MD - 02/04/2017 2:22 PM EDT Pre-Anesthesia Evaluation for: Nancy Diego a 51 y.o. female. Procedure(s): COLONOSCOPY, DIAGNOSTIC Patient Active Problem List Diagnosis ??? Type 2 diabetes mellitus without complication, without long-term current use of insulin ??? Fatigue ??? Low back pain ??? Body mass index (BMI) of 39.0-39.9 in adult ??? Irritable bowel syndrome ??? GERD (gastroesophageal reflux disease) ??? Peptic ulcer disease ??? Migraines ??? Elevated blood pressure ??? Depression Past Medical History: Diagnosis Date ??? Asthma ??? BMI 39.0-39.9,adult ??? Depression 04/13/2013 ??? GERD (gastroesophageal reflux disease) ??? History of seizures ??? HTN (hypertension) 04/13/2013 ??? Migraine ??? Mood disorder ??? KOSTA (obstructive sleep apnea) ??? PTSD (post-traumatic stress disorder) ??? Smoker ??? Urge incontinence Past Surgical History: Procedure Laterality Date ??? SECTION x3 ??? CHOLECYSTECTOMY ??? DENTAL SURGERY wisdom teeth, one pulled ??? HYSTERECTOMY ??? OVARY REMOVAL after hysterectomy ??? PRO COLONOSCOPY, BIOPSY N/A 03/26/2016 COLONOSCOPY FLEXIBLE, WITH BX performed by Mohinder Cid MD at [facility] ENDOSCOPY Social History Substance Use Topics ??? Smoking status: Current Every Day Smoker Packs/day: 0.50 Types: Cigarettes ??? Smokeless tobacco: Never Used ??? Alcohol use No History Drug Use No Allergies Allergen Reactions ??? Latex Skin cracks and bleeds ??? Penicillins Rash Medications: MAR and/or home medications have been reviewed. Physical Exam: There were no vitals filed for this visit. There is no height or weight on file to calculate BMI. Airway Assessment: Mallampati: II TM distance: >3 FB Neck ROM: full Cardiovascular Assessment: Pulmonary Assessment: Dental Assessment: Misc Assessment: Anesthesia Plan: ASA 3 MAC, with a(n) intravenous induction morbidly obese 51 female with DM chronic pain on opioids, depression, supposed to use nightly CPAP (she says O2, but doesn't use either) here for colo. Anesthesia plan MAC Appropriately NPO. No recent URI/fever. R/b anesthesia discussed. Questions sought and answered. Consent signed Region - Other Informed Consent: Anesthetic plan and risks discussed with patient. Plan discussed with WAREHOUSE ORDER SELECTOR. PAT Staff Note documented in this encounter Plan of Treatment Not on file documented as of this encounter Visit Diagnoses Not on filedocumented in this encounter Administered Medications Inactive Administered Medications - up to 3 most recent administrations Medication Order MAR Action Action Date Dose Rate Site lactated Ringers infusion 1,000 mL 1,000 mL, at 100 mL/hr, Intravenous, CONTINUOUS, Starting on Sat02/05/17 at 0915, Until Sat02/05/17 at 1328, Day of Surgery (Day of Procedure) New Bag 02/05/2017 10:03 AM EDT lidocaine (PF) (XYLOCAINE) 100 mg/5 mL (2 %) injection PRN, Starting on Sat02/05/17 at 1008, Until Sat02/05/17 at 1035, Anesthesia Intra-op, Routine Given 02/05/2017 10:08 AM EDT 50 mg propofol (DIPRIVAN) 10 mg/mL bolus injection (Anesthesia) PRN, Starting on Sat02/05/17 at 1008, Until Sat02/05/17 at 1035, Anesthesia Intra-op Given 02/05/2017 10:20 AM EDT 50 mg Given 02/05/2017 10:08 AM EDT 50 mg propofol (DIPRIVAN) infusion CONTINUOUS PRN, Starting on Sat02/05/17 at 1008, Until Sat02/05/17 at 1035, Anesthesia Intra-op, Routine Rate/Dose Change 02/05/2017 10:30 AM EDT 175 mcg/kg/min 111 mL/hr New Bag 02/05/2017 10:08 AM EDT 200 mcg/kg/min 126.8 mL /hr documented in this encounter Care Teams Premix Concrete Batcher Relationship Specialty Start Date End Date Nubia Botello, [facility] [place] [address] PCP - General 01/16/14 01/28/19 documented as of this encounter
--- OUTSIDE RECORDS SUMMARY | 2024-04-03 16:05 | XMS_ITS | Encounter Summary ---
Author Organization [facility] [place] [address] Care Team Providers Care Tool Keeper Name Role Phone Nubia Botello APRN Primary Care Provider + Encounter Details Date Type Department Care Team (Late st Contact Info) Description 01/29/2017 E-[place] [address] Adina Atkinson, [facility] [place] [address] CRP elevated Social History Tobacco Use Types Packs/Day Years [...] as of this encounter Miscellaneous Notes * E-Consult - Adina Atkinson, - 01/29/2017 5:20 PM EDT 1. Restatement of the question: 51 yof with chronic arthralgias as well as fibromyalgia with elevated CRP and radiographs showing OA. Question treatment and diagnosis Pt has had an econsult to rheumatology one year ago, which at that time recommended treat as fibromyalgia and place formal consult fi she did not improve. Formal consult was placed on 11/28 and again in 12/10 and patient has an appointment with Dr Mann in rheumatology on 02/20 to further evaluate her The patient is currently being appropriately managed by her pcp for fibromyalgia with Cymbalta, Neurontin, and flexeril. She is complaining of l hand n/t, pain in elbow and hand, back pain with trouble walking Her current labs show an wbc of 11.8, nl hb and plt count, her cmp shows elevated lfts, crp is elevated at 52, MARCE neg and ssa/b neg, neg ccp, xrays show oa, mri of the l spine shows djd Ct in 2016 shows hepatomegaly 2. Recommendation(s): Based on PCM description of symptoms pt seems to have fibromyalgia which is being appropriately managed She may have an additional inflammatory arthritis whether it is seroneg RA orseroeng spondy, but she also has worsening liver function which in conjunction with obesity can increase her CRP. -agree with GI eval for fatty liver and her brbpr to assess for inflamm bowel disease, consider hepatitis testing -defer decision to Dr Mann on US vs advanced imaging of her involved joints -does not appear that patient has attended PT for her symptoms-perhaps she would benefit from watertherapy -her n/t sounds more like ulnar neuropathy vs cts and may consider neurology referral for emg, would also consider an A1c -given her morbid obesity and chronic pain also suspect she has sleep apnea, and if not already done would recommend a sleep study 3. Rationale and/or evidence for recommendation: See above 4. Contingency plan: pt has appt in rheum on 02/20 This eConsult is focused on the specific clinical question(s) asked by the referring clinician, is based on the clinical data available to me, the consulting physician, at the time of the request, and is furnished without benefit of a comprehensive evaluation or physical examination of the patient by me. The guidance set forth in the eConsult note will need to be interpreted in light of any clinical issues not known to me or any changes in patient status that I may not be aware of at the time of filing this eConsult. If further consultation is necessary, an in-person visit with me or another member of our group is an option. documented in this encounter Plan of Treatment Not on file documented as of this encounter Visit Diagnoses Diagnosis CRP elevated Elevated C-reactive protein (CRP) documented in this encounter Care Teams Tool Keeper Relationship Specialty Start Date End Date Nubia Botello APRN [facility] [address] PCP - General 01/16/14 01/28/19 documented as of this encounter
--- OUTSIDE RECORDS SUMMARY | 2024-04-03 16:05 | XMS_ITS | Encounter Summary ---
Author Organization [facility] [place] [address] Care Team Providers Care Waste And Batting Waste Chopper Name Role Phone Rosmery Nubia Lopez APRN Primary Care Provider + Reason for Visit * Reason Comments Medication Refill Encounter Details Date Type Department Care Team (Late st Contact Info) Description 01/04/2017 Refill Internal Medicine at [address] [address] Nubia Botello PICKING MACHINE OPERATOR [facility] [place] [address] Social History Tobacco Use Types Packs/Day Years [...] on filedocumented in this encounter Care Teams Waste And Batting Waste Chopper Relationship Specialty Start Date End Date Nubia Botello APRN [facility] [address] GENER[place] [address] PCP - General 01/16/14 01/28/19 documented as of this encounter
--- OUTSIDE RECORDS SUMMARY | 2024-04-03 16:05 | XMS_ITS | Encounter Summary ---
Author Organization [facility] [place] [address] Care Team Providers Care Lead Consultant Name Role Phone Rosmery Nubia Lopez APRN Primary Care Provider + Reason for Visit * Reason Onset Date Comments Medication Refill 12/20/2016 Encounter Details Date Type Department Care Team (Late st Contact Info) Description 12/20/2016 Refill Internal Medicine at [address] [address] Chhaya Cee, KLEVERA Fibromyalgia Social History Tobacco [...] unspecified documented in this encounter Care Teams Lead Consultant Relationship Specialty Start Date End Date Nubia Botello APRN [facility] [address] [place] [address] PCP - General 01/16/14 01/28/19 documented as of this encounter
--- OUTSIDE RECORDS SUMMARY | 2024-04-03 16:05 | XMS_ITS | Encounter Summary ---
Author Organization [facility] [place] [address] Care Team Providers Care Garnett Machine Operator Helper Name Role Phone Nubia Botello APRN Primary Care Provider + Encounter Details Date Type Department Care Team (Late st Contact Info) Description 03/28/2017 Telephone Internal Medicine at [address] [address] Nubia Botello APRN [facility] [address] [place] [address] Social History Tobacco Use Types Packs/Day Years [...] Telephone Encounter - Nubia Botello APRN - 03/28/2017 12:58 PM EDT Called and spoke to patient about the importance of making her rheumatology appointment. She reports that she canceled it because she could not afford gas to get there. She has f/u in 2 weeks. Discussed the importance of getting an appt. Patient to go to ED if symptoms are getting worse. documented in this encounter Plan of Treatment Not on file documented as of this encounter Visit Diagnoses Not on filedocumented in this encounter Care Teams Garnett Machine Operator Helper Relationship Specialty Start Date End Date Nubia Botello APRN [facility] [place] [address] PCP - General 01/16/14 01/28/19 documented as of this encounter
--- OUTSIDE RECORDS SUMMARY | 2024-04-03 16:05 | XMS_ITS | Encounter Summary ---
Author Organization [facility] [place] [address] Care Team Providers Care Cotton Sampler Name Role Phone Nubia Botello APRN Primary Care Provider + Encounter Details Date Type Department Care Team (Late st Contact Info) Description 04/15/2017 Refill Internal Medicine at [address] [id number] Consuelo Delaney RN Social History Tobacco Use [...] Telephone Encounter - Nubia Botello APRN - 04/15/2017 9:01 AM EDT Please let patient know that I am out of office and cannot sign them until tomorrow morning. * Telephone Encounter - Consuelo Delaney RN - 04/15/2017 8:38 AM EDT Patient calling to cancel her kim today Money is tight and I can't afford to come down just now. However, she needs refills of oxycodone and flexeril which she wants sent directly to the pharmacy. Informed her that she must come to clinic in person to pick up worker her narcotic script. States she is out of both. Refills pended to PCP. documented in this encounter Plan of Treatment Not on file documented as of this encounter Visit Diagnoses Not on filedocumented in this encounter Care Teams Cotton Sampler Relationship Specialty Start Date End Date Nubia Botello, VISUAL MERCHANDISING ASSISTANT [facility] [address] [address] PCP - General 01/16/14 01/28/19 documented as of this encounter
--- OUTSIDE RECORDS SUMMARY | 2024-04-03 16:05 | XMS_ITS | Encounter Summary ---
Author Organization [facility] [place] [address] Care Team Providers Care Watermelon Harvesting Supervisor Name Role Phone Nubia Botello APRN Primary Care Provider + Reason for Visit * Reason Onset Date Comments Questions 08/09/2017 Encounter Details Date Type Department Care Team (Late st Contact Info) Description 08/09/2017 Telephone Internal Medicine at [address] [address] Ayesha Her Questions Social History Tobacco Use Types Packs/Day Years [...] encounter Miscellaneous Notes * Telephone Encounter - Consuleo Delaney RN - 08/09/2017 2:23 PM EST TC to patient. She developed right shoulder pain 3 days ago, in the joint which radiated down herarm. She woke up with it. Constant, dull, throbbing at times, can't raise her arm. Oxycodone not working for this pain. Tried 2 OTC rubs without benefit. Will try Bengay and patches. Denies recent fall, tripping, overuse of that arm. denies numbness in hand. States her told her she looks like she has trouble turning over in her sleep. Advised to try ice alt with heat to the shoulder/neck area if the Bengay and patches don't help, and to call back if sx persist. * Telephone Encounter - Ayesha Her - 08/09/2017 1:41 PM EST Nancy calling in wanting to talk to her PCP Paulette. States that she thinks she may be having some sortof fibromyalgia attack that the pain goes from constant to throbbing and is very concerned. Please call back at the primary number [phone] documented in this encounter Plan of Treatment Not on file documented as of this encounter Visit Diagnoses Not on filedocumented in this encounter Care Teams Watermelon Harvesting Supervisor Relationship Specialty Start Date End Date Nubia Botello, G[facility] [address] DASIL[address] [place] [address] PCP - General 01/16/14 01/28/19 documented as of this encounter
--- OUTSIDE RECORDS SUMMARY | 2024-04-03 16:05 | XMS_ITS | Encounter Summary ---
Author Organization [facility] [place] [address] Care Team Providers Care Arbor End Mainspring Former Name Role Phone Nubia Botello APRN Primary Care Provider + Reason for Visit * Reason Onset Date Comments Results 12/11/2016 Encounter Details Date Type Department Care Team (Late st Contact Info) Description 12/11/2016 Telephone Internal Medicine at [address] [address] Mary Greene Results Social History Tobacco Use Types Packs/Day Years [...] Telephone Encounter - Consuelo Delaney RN - 12/11/2016 3:34 PM EDT TC to patient with xray results of bilat wrist and hand xrays: IMPRESSION Findings are most consistent with osteoarthritis. ?? FINDINGS: No focal swelling. Alignment is normal. No fracture is identified. No soft tissue calcification. ?? IMPRESSION No focal abnormalities identified. ?? * Telephone Encounter - Mary Greene - 12/11/2016 3:23 PM EDT Patient calling in regards to xray results- please call back documented in this encounter Plan of Treatment Not on file documented as of this encounter Visit Diagnoses Not on filedocumented in this encounter Care Teams Arbor End Mainspring Former Relationship Specialty Start Date End Date Nubia Botello, TIRE INSPECTOR [facility] [place] [address] PCP - General 01/16/14 01/28/19 documented as of this encounter
--- OUTSIDE RECORDS SUMMARY | 2024-04-03 16:05 | XMS_ITS | Encounter Summary ---
Author Organization [facility] [place] [address] Care Team Providers Care Mechanical Design Engineer Products Name Role Phone Nubia Botello APRN Primary Care Provider + Encounter Details Date Type Department Care Team (Latest Contact Info) Description 12/10/2016 11:43 AM EDT - 12/10/2016 11:59 PM EDT Hospital Encounter XRay at [address] [place] [address] Nubia Botello TRUCK GUARD [facility] GENERAL [place] [address] Arthralgia of both hands Discharge Disposition: Home Social History Tobacco Use [...] Name Priority Date/Time Associated Diagnosis Comments XR HAND MIN 3 VIEWS BILAT Routine 12/10/2016 12:12 PM EDT Arthralgia of both hands documented in this encounter Results * XR Hand Min 3 views Bilat [...] metacarpal jointand the distal interphalangeal joints. Nubia W Rosmery TRUCK GUARD IMG DX ORDERABLE S documented in this encounter Visit Diagnoses Diagnosis Arthralgia of both hands documented in this encounter Care Teams Mechanical Design Engineer Products Relationship Specialty Start Date End Date Nubia Botello, AGRY [facility] [address] [place] [address] PCP - General 01/16/14 01/28/19 documented as of this encounter
--- OUTSIDE RECORDS SUMMARY | 2024-04-03 16:05 | XMS_ITS | Encounter Summary ---
Author Organization [facility] [place] [address] Care Team Providers Care Moccasin Sewer Name Role Phone Nubia Botello APRN Primary Care Provider + Encounter Details Date Type Department Care Team (Late st Contact Info) Description 01/28/2017 Notes Only Internal Medicine at [address] [address] Chhaya Cee CCMA Social History Tobacco Use [...] as of this encounter Progress Notes * Chhaya Cee MA - 01/28/2017 11:29 AM EDT PDMP done for Nancy. Nancy has had only 2 narcotic prescriptions in the last 2 years. Both written byLio Botello APRN @ [facility], and both times used the same pharmacy ([facility] in [place], [place].) Information given to Lio Botello. documented in this encounter Plan of Treatment Not on file documented as of this encounter Visit Diagnoses Not on filedocumented in this encounter Care Teams Moccasin Sewer Relationship Specialty Start Date End Date Nubia Botello APRN [facility] [address] [place] [address] PCP - General 01/16/14 01/28/19 documented as of this encounter
--- OUTSIDE RECORDS SUMMARY | 2024-04-03 16:05 | XMS_ITS | Encounter Summary ---
Author Organization [facility] [place] [address] Care Team Providers Care Airconditioning Plant Operator Name Role Phone Nubia Botello APRN Primary Care Provider + Encounter Details Date Type Department Care Team (Late st Contact Info) Description 02/05/2017 10:15 AM EDT - 02/05/2017 11:00 AM EDT Surgery [place] [address] Floyd Lopez MD [facility] [place] [address] COLONOSCOPY, DIAGNOSTIC (WRVU 3.26) Social History Tobacco Use Types Packs/Day Years [...] Sign Reading Time Taken Comments Blood Pressure 142/79 02/05/2017 11:00 AM EDT Pulse 87 02/05/2017 8:51 AM EDT Temperature - - Respiratory Rate - - Oxygen Saturation 94% 02/05/2017 11:00 AM EDT Inhaled Oxygen Concentration - - Weight 105.7 kg (233 lb) 02/05/2017 8:51 AM EDT Height 162.6 cm (5' 4) 02/05/2017 8:51 AM EDT Body Mass Index 39.99 02/05/2017 8:51 AM EDT documented in this encounter Discharge Instructions * Discharge Instructions* Gaetano Livingston RN - 02/05/2017 10:39 AM EDT Colonoscopy What to expect after the procedure You may feel a little more gassy or bloated than usual. This is normal. You should expect the return of normal bowel function in the 2 to 3 days. Activity Because of the sedation that you received your judgement and reaction time are effected ?? Go home and rest quietly for the remainder of the day. You may resume your normal activities tomorrow. ?? Change from one position to the next slowly. You may lose your balance unexpectedly ?? Be careful on stairs, as you may be unsteady on your feet FOR THE NEXT 24 HRS ?? DO NOT DRIVE OR OPERATE ANY MACHINERY ?? DO NOT DRINK ALCOHOLIC BEVERAGES ?? DO NOT SIGN LEGAL DOCUMENTS ?? If you are a smoker: DO NOT SMOKE WHILE YOU ARE ALONE Diet ?? Start by eating small portions of foods that ordinarily will not upset your stomach . Avoid gas producing foods for the next few days ?? Be gentle with what you choose to start with ?? Drink plenty of fluids ( unless your doctor has told you not to). IV SITE-- slight redness, or tenderness is normal. You can use warm compresses if you become concerned. If the tenderness +/or redness increases or foul drainage and a red streak occurs, please contact your PCP immediately When shoud you call for help? Call 911 anytime you think you may need emergency care. For example If you pass out ( loss of consciousness) If you pass maroon or bloody stools If you have severe belly pain Call your doctor now or seek immediate medical care If your stools are black and tarlike If your stools have streaks of blood, but you did not have a biopsy or any polyps removed If you have belly pain, or your belly is swollen and firm If you vomit If you have a fever If you are very dizzy Watch closely for changes in your health, and be sure to contact your doctor if you have any problems Your doctor will let you know when you will need your next colonoscopy. The results of your test and your risk for colorectal cancer will help your doctor decide how often you need to be checked. Saturday-Saturday Same Day Endo [phone]-8p Otherwise contact [phone] and ask to speak to the fingerprinter supervising floorperson Follow up care is a perkins part of your treatment and safety. Be sure to make and go to all appointments, and call your doctor if you are having problems. Discharge instructions reviewed with patient who expresses understanding documented in this encounter Medications at Time of Discharge [...] by mouth every 6 hours as needed. aspirin-acetaminophe n-caffeine (EXCEDRIN MIGRAINE) 250-250-65 mg Tablet Take 1 tablet by mouth every 6 hours as needed for Pain. 03/29/2017 oxyCODONE (ROXICODONE) 5 mg Tablet Take 1 tablet by mouth every 8 hours as needed for Pain. 84 tablet 01/28/2017 03/08/2017 metFORMIN (GLUCOPHAGE-XR) 500 mg Tablet Sustained Release 24 hr Take 2 tablets by mouth daily. 60 tablet 5 01/07/2017 07/15/2017 gabapentin (NEURONTIN) 300 mg CapsuleIndications:F ibromyalgia Take 3 capsules by mouth 3 times daily. 810 capsule 3 12/20/2016 10/29/2017 cyclobenzaprine (FLEXERIL) 10 mg Tablet Take 1 tablet by mouth 3 times daily as needed for Muscle spasms. 90 tablet 3 12/10/2016 04/15/2017 DULoxetine (CYMBALTA) 20 mg Capsule, Delayed Release(E.C.)Indicat ions:fibromyalgia Take 2 capsules by mouth daily. May increase to 60 mg daily after one week. Indications: Fibromyalgia 60 tablet 11 07/02/2016 03/08/2017 albuterol (PROAIR HFA) 90 mcg/actuation HFA Aerosol [...] 08/12/2014 03/29/2017 documented as of this encounter H&P Notes * Floyd Lopez MD - 02/05/2017 9:58 AM EDT Gastroenterology and Hepatology Pre-Procedure History and Physical Exam Procedure: Colonoscopy: Indication: rectal bleeding Patient Active Problem List Diagnosis Code ??? Depression F32.9 ??? Irritable bowel syndrome K58.9 ??? GERD (gastroesophageal reflux disease) K21.9 ??? Peptic ulcer disease K27.9 ??? Migraines G43.909 ??? Elevated blood pressure [id number] ??? Body mass index (BMI) of 39.0-39.9 in adult Z68.39 ??? Low back pain M54.5 ??? Type 2 diabetes mellitus without complication, without long-term current use of insulin E11.9 ??? Fatigue R53.83 EXAM: HEENT: Airway examined, oropharynx clear Mallampati Score: II (soft palate, uvula, fauces visible) LUNGS: Clear to auscultation HEART: Regular rate and rhythm, normal S1, S2 ABDOMEN: Normal bowel sounds, soft, non tender, non distended, A/P Proceed with the planned endoscopic procedure. ASA 2 - Patient with mild systemic disease with no functional limitations Sedation Plan: anesthesia Risks and benefits of the procedure explained to the patient. Consent signed. documented in this encounter Plan of Treatment Not on file documented as of this encounter Procedures Procedure Name Priority Date/Time Associated Diagnosis Comments COLONOSCOPY, DIAGNOSTIC (WRVU 3.26) 02/05/2017 10:04 AM EDT BRBPR - CONSULT COLONOSCOPY Routine 02/05/2017 10:04 AM EDT POCT FINGERSTICK GLUCOSE Routine 02/05/2017 documented in this encounter Results * COLONOSCOPY (02/05/2017 10:04 AM EDT) COLONOSCOPY [facility] Endoscopy Procedure Date: 02/05/2017 10:04 AM ? Patient Name: Nancy Diego ? Date of : 1965 ? Age: 51 ? Order #: [id number] ? Instrument Name: [id number]-[id number] ? Procedure: ? Colonoscopy Indications: ? Hematochezia, [...] preparation was evaluated using ? the BBPS ([place] Bowel Preparation ? Scale) with scores of: [...] 02/05/2017 10:0 4 AM EDT Nubia Botello SEISMOMETER OPERATOR GENERAL SURGICAL ORDERABLES PROVATION * POCT Fingerstick Glucose (02/05/2017) Glucose, POC 150 60 - 199 mg/dl 02/05/2017 Floyd Lopez MD POINT OF CARE TEST O RDERABLES documented in this encounter Visit Diagnoses Not [...] New Bag 02/05/2017 10:03 AM EDT lidocaine (XYLOCAINE) 10 mg/mL (1 %) injection 3 mg 3 mg (0.3 mL), Subcutaneous, ONCE PRN, 1 dose, Starting on Sat02/05/17 at 0848, Until Sat02/05/17 at 1328, for discomfort with PIV insertion, Day of Surgery (Day of Procedure), Routine sodium chloride 0.9 % flush 5-20 mL 5-20 mL, Intravenous, EVERY 1 MIN PRN, Starting on Sat02/05/17 at 0848, Until Sat02/05/17 at 1328, flush, Flush pertains to all indwelling lines. Flush per protocol found in the job aid using the link provided on this medication record., Day of Surgery (Day of Procedure), Routine documented in this encounter Active and Recently Administered Medications Times are shown in EDT. Continuous Medication Order 02/03/2017 02/04/2017 02/05/2017 lactated Ringers infusion 1,000 mL 1,000 mL, at 100 mL/hr, Intravenous, CONTINUOUS, Starting on Sat02/05/17 at 0915, Until Sat02/05/17 at 1328, Day of Surgery (Day of Procedure) 1003 (New Bag - Prov ider: Mohinder Smith CRNA)1019 (Anesthesia Volume Adjustment - Provider: Mohinder Smith CRNA)1035 (Anesthesia Volume Adjustment - Provider: Mohinder Smith CRNA) PRN Medication Order 02/03/2017 02/04/2017 02/05/2017 lidocaine (XYLOCAINE) 10 mg/mL (1 %) injection 3 mg 3 mg (0.3 mL), Subcutaneous, ONCE PRN, 1 dose, Starting on Sat02/05/17 at 0848, Until Sat02/05/17 at 1328, for discomfort with PIV insertion, Day of Surgery (Day of Procedure), Routine sodium chloride 0.9 % flush 5-20 mL 5-20 mL, Intravenous, EVERY 1 MIN PRN, Starting on Sat02/05/17 at 0848, Until Sat02/05/17 at 1328, flush, Flush pertains to all indwelling lines. Flush per protocol found in the job aid using the link provided on this medication record., Day of Surgery (Day of Procedure), Routine documented in this encounter Care Teams Airconditioning Plant Operator Relationship Specialty Start Date End Date Nubia Botello APRN [facility] [place] [address] PCP - General 01/16/14 01/28/19 documented as of this encounter
--- OUTSIDE RECORDS SUMMARY | 2024-04-03 16:05 | XMS_ITS | Encounter Summary ---
Author Organization [facility] [place] [address] Care Team Providers Care Crab Backer Name Role Phone Rosmery, Nubia Lopez APRN Primary Care Provider + Reason for Visit * Reason Onset Date Comments Pharmacy Call 07/17/2017 Encounter Details Date Type Department Care Team (Late st Contact Info) Description 07/17/2017 Telephone Internal Medicine at [address] [address] Krishna Smith Pharmacy Call Social History Tobacco Use Types [...] encounter Miscellaneous Notes * Telephone Encounter - Krishna Smith - 07/17/2017 11:50 AM EST Pharmacy or caller: [facility] Medication: Oxycodone Message: Wanted to let PCP know that per [place] [facility] they are only allow to fill for 28 pills. documented in this encounter Plan of Treatment Not on file documented as of this encounter Visit Diagnoses Not on filedocumented in this encounter Care Teams Crab Backer Relationship Specialty Start Date End Date Nubia Botello APRN [facility] DR DASILVA INTERNAL [facility] [place] [place] [address] PCP - General 01/16/14 01/28/19 documented as of this encounter
--- OUTSIDE RECORDS SUMMARY | 2024-04-03 16:05 | XMS_ITS | Encounter Summary ---
[facility] [place] [address] Care Team Providers Care Teacher Theater Arts Name Role Phone Nubia Botello APRN Primary Care Provider + Reason for Referral * Surgical (Urgent) - Duplicate Referral Specialty Diagnoses / Procedures Referred By Dennis daniels Referred To Contact General Surgery Diagnoses Rectal bleed Nubia Botello APRN [facility] GENERAL [place] [address] [facility] Gen Surgery [address] [place] [id number] Referral ID Status Reason Start Date Expiration Date Visits Requested Visits Authorized [id number] Duplicate Referral Consult, Test & Treat 02/07/2017 02/07/2018 1 1 Encounter Details Date Type Department Care Team (Late st Contact Info) Description 02/07/2017 Telephone Internal Medicine at [address] [address] Consuelo Delaney RN Social History Tobacco Use [...] Telephone Encounter - Consuelo Delaney RN - 02/07/2017 3:45 PM EDT Referral to general surgery pended. Patient informed. * Telephone Encounter - Consuelo Delaney RN - 02/07/2017 3:06 PM EDT Patient calling because she had cancelled her appt with Dr Ervin because she felt so poorly and wants to know about rescheduling. She states Dr Lopez told her that she has large internal bleeding hemorrhoids which are the source of her rectal bleeding and that she should have them surgically removed. She wants to know next step. documented in this encounter Plan of Treatment Scheduled Referrals Name Type Priority Associated Diagnoses Orde r Schedule Referral to General Surgery Outpatient Referral Routine Rectal bleed Ordered: 02/07/2017 documented as of this encounter Visit Diagnoses Diagnosis Rectal bleed Hemorrhage of rectum and anus documented in this encounter Care Teams Teacher Theater Arts Relationship Specialty Start Date End Date Nubia Botello, GARY [facility] DR DASILVA INTERNAL [facility] [place] [address] PCP - General 01/16/14 01/28/19 documented as of this encounter
--- OUTSIDE RECORDS SUMMARY | 2024-04-03 16:05 | XMS_ITS | Encounter Summary ---
Author Organization [facility] [place] [address] Care Team Providers Care Access Spec Name Role Phone Nubia Botello APRN Primary Care Provider + Encounter Details Date Type Department Care Team (Latest Contact Info) Description 02/05/2017 8:35 AM EDT - 02/05/2017 11:23 AM EDT Hospital [place] [address] Floyd Lopez MD [facility] [place] [address] Discharge Disposition: Home Social History Tobacco Use [...] to be checked. Saturday-Saturday Same Day Endo [phone] 7a-8p Otherwise contact [phone] and ask to speak to the loan review officer ribbon blocker Follow up care is a perkins part [...] ??? Migraines G43.909 ??? Elevated blood pressure [id number] ??? Body mass index (BMI) of 39.0-39.9 [...] Results * COLONOSCOPY (02/05/2017 10:04 AM EDT) Pathologist [facility] COLONOSCOPY [facility] Endoscopy Procedure Date: 02/05/2017 10:04 AM ? Patient Name: Nancy Diego ? Date of : 1965 ? Age: 51 ? Order #: [id number] ? Instrument Name: [id number] ? Procedure: ? Colonoscopy Indications: ? Hematochezia, Negative colo in ? March 2016 Providers: ? Floyd Lopez MD, Roselia Caldwell, ? WEI, Charla Hernandez MD: ?Nubia Botello Medicines: ? [...] preparation was evaluated using ? the BBPS ([place] Bowel Preparation ? Scale) with scores of: [...] 02/05/2017 10:0 4 AM EDT Nubia Botello CABINET MOUNTER GENERAL SURGICAL ORDERABLES PROVATION * POCT Fingerstick [...] Routine documented in this encounter Care Teams Access Spec Relationship Specialty Start Date End Date Nubia Botello, GARY [facility] [address] [address] PCP - General 01/16/14 01/28/19 documented as of this encounter
--- OUTSIDE RECORDS SUMMARY | 2024-04-03 16:05 | XMS_ITS | Encounter Summary ---
Author Organization [facility] [place] [address] Care Team Providers Care Boiler Welder Name Role Phone Nubia Botello APRN Primary Care Provider + Reason for Visit * Reason Onset Date Comments Results 06/06/2017 Called to inquir e about lab results Encounter Details Date Type Department Care Team (Late st Contact Info) Description 06/06/2017 Telephone Internal Medicine at [address] [address] Tere De La Torre, RN Results (Called to inquire about lab results) Social History Tobacco Use Types Packs/Day Years [...] Telephone Encounter - Nubia Botello APRN - 06/07/2017 3:02 PM EST SPoke to patient and discussed results. She is still having a lot of pain. * Telephone Encounter - Tere De La Torre RN - 06/06/2017 10:02 AM EST Pt called to inquire about 05/28/17 lab results. She states that she is not feeling any better, and finding work difficult, especially now that she has to contend with cold weather. I gave her the labnumbers, yet told her I couldn't provide the big picture. The only value that seemed to be abnormal was the POC HA1C, which tends to be an ongoing issue. Pt has follow-up appointments with Lio Botello and rheumatology in June, but would appreciate phone call to discuss labs and discomfort beforehand. documented in this encounter Plan of Treatment Not on file documented as of this encounter Visit Diagnoses Not on filedocumented in this encounter Care Teams Boiler Welder Relationship Specialty Start Date End Date Nubia Botello, GEOMETRICIAN [facility] [address] [place] [address] PCP - General 01/16/14 01/28/19 documented as of this encounter
--- OUTSIDE RECORDS SUMMARY | 2024-04-03 16:06 | XMS_ITS | Encounter Summary ---
Author Organization [facility] [place] [address] Care Team Providers Care Baffle Installer Name Role Phone Nubia Botello APRN Primary Care Provider + Encounter Details Date Type Department Care Team (Late st Contact Info) Description 07/02/2016 Telephone Internal Medicine at [address] [address] Consuelo Delaney RN Social History Tobacco Use [...] Telephone Encounter - Nubia Botello APRN - 07/02/2016 2:03 PM EST Returned call to patient. No answer, message left for patient. * Telephone Encounter - Consuelo Delaney RN - 07/02/2016 1:48 PM EST Patient calling, stating her fibromyalgia is worse, and the gabapentin/Cymbalta now isn't touchingit at all. She states she has pain in shoulders, hands, feet, hips and it has gotten worse since last call about it 06/19. Would prefer not to make an appt if Nubia can make a suggestion instead. Routed to [place]. documented in this encounter Plan of Treatment Not on file documented as of this encounter Visit Diagnoses Not on filedocumented in this encounter Care Teams Baffle Installer Relationship Specialty Start Date End Date Nubia Botello APRN [facility] [address] [place] [address] PCP - General 01/16/14 01/28/19 documented as of this encounter
--- OUTSIDE RECORDS SUMMARY | 2024-04-03 16:06 | XMS_ITS | Encounter Summary ---
Author Organization [facility] [place] [address] Care Team Providers Care Industrial Engineering Name Role Phone Nubia Botello APRN Primary Care Provider + Reason for Visit * Reason Onset Date Comments Prior Authorization 11/25/2015 oxycodone Encounter Details Date Type Department Care Team (Late st Contact Info) Description 11/25/2015 Telephone Internal Medicine at [address] [address] Bryanna Cortes CCMA Prior Authorization (oxycodone) Social History Tobacco Use Types Packs/Day Years [...] Telephone Encounter - Consuelo Delaney RN - 12/01/2015 3:57 PM EDT Nubia Botello ordered gabapentin instead of Lyrica. Message left for patient. * Telephone Encounter - Bryanna Cortes MA - 11/28/2015 8:48 AM EDT Patient has already paid $16 out of pocket for this medication, and [place] medicaid does not cover acute pain medication. PA not required. documented in this encounter Plan of Treatment Not on file documented as of this encounter Visit Diagnoses Not on filedocumented in this encounter Care Teams Industrial Engineering Relationship Specialty Start Date End Date Nubia Botello, PRESIDENT OF [employer] [place] [facility] GENERAL [place] [address] PCP - General 01/16/14 01/28/19 documented as of this encounter
--- OUTSIDE RECORDS SUMMARY | 2024-04-03 16:06 | XMS_ITS | Encounter Summary ---
Author Organization [facility] [place] [address] Care Team Providers Care Chemical Dependency Nurse Name Role Phone Nubia Botello APRN Primary Care Provider + Reason for Visit * Reason Onset Date Comments Results 01/20/2016 Encounter Details Date Type Department Care Team (Late st Contact Info) Description 01/20/2016 Telephone Internal Medicine at [address] [address] Viky Robbins Results Social History Tobacco Use Types Packs/Day [...] Telephone Encounter - Yuki Galdamez RN - 01/20/2016 4:13 PM EDT Results given and appointment made for follow up and labs per Nubia. * Telephone Encounter - Yuki Galdamez RN - 01/20/2016 11:33 AM EDT TC to the patient: she would like to get the results. * Telephone Encounter - Viky Robbins - 01/20/2016 9:47 AM EDT Nancy, would like someone to call her before 11am to review her recent labs done on 01-17-16. [phone] viky documented in this encounter Plan of Treatment Not on file documented as of this encounter Visit Diagnoses Diagnosis Other chronic pain documented in this encounter Care Teams Chemical Dependency Nurse Relationship Specialty Start Date End Date Nubia Botello APRN [facility] [address] [address] PCP - General 01/16/14 01/28/19 documented as of this encounter
--- OUTSIDE RECORDS SUMMARY | 2024-04-03 16:06 | XMS_ITS | Encounter Summary ---
Author Organization [facility] [place] [address] Care Team Providers Care Bolter Helper Name Role Phone Nubia Botello GARY Primary Care Provider + Encounter Details Date Type Department Care Team (Late st Contact Info) Description 06/07/2016 Notes Only Internal Medicine at [address] [address] Chhaya Cee CCMA Social History Tobacco Use [...] Progress Notes * Chhaya Cee MA - 06/07/2016 3:31 PM EST PDMP done on pt. Prescripts written by PCP, and all dispenced at same pharmacy. documented in this encounter Plan of Treatment Not on file documented as of this encounter Visit Diagnoses Not on filedocumented in this encounter Care Teams Bolter Helper Relationship Specialty Start Date End Date Nubia Botello, HIM CLERK [facility] [place] [address] PCP - General 01/16/14 01/28/19 documented as of this encounter
--- OUTSIDE RECORDS SUMMARY | 2024-04-03 16:06 | XMS_ITS | Encounter Summary ---
Author Organization [facility] [place] [address] Care Team Providers Care Air Hammer Stripper Name Role Phone Nubia Botello APRN Primary Care Provider + Encounter Details Date Type Department Care Team (Late st Contact Info) Description 12/30/2015 Telephone Internal Medicine at [address] [address] Consuelo Delaney RN Social History Tobacco Use [...] Telephone Encounter - Consuelo Delaney RN - 12/30/2015 10:46 AM EDT Patient wanted to review labs, so reviewed results with her. Encouraged her to reduce carbs and fats in diet and increase sustained exercise like walking. documented in this encounter Plan of Treatment Not on file documented as of this encounter Visit Diagnoses Not on filedocumented in this encounter Care Teams Air Hammer Stripper Relationship Specialty Start Date End Date Nubia Botello APRN [facility] GENER[facility] INTERNAL MED-[facility] [place] [address] PCP - General 01/16/14 01/28/19 documented as of this encounter
--- OUTSIDE RECORDS SUMMARY | 2024-04-03 16:06 | XMS_ITS | Encounter Summary ---
Author Organization [facility] Address [facility] [place] [address] Care Team Providers Care Chief Procurement Officer Name Role Phone Nubia Botello APRN Primary Care Provider + Reason for Visit * Auth/Cert Specialty Diagnoses / Procedures Referred By Dennis daniels Referred To Contact Diagnoses BRBPR Procedures PRO COLONOSCOPY, DIAGNOSTIC COLONOSCOPY, DIAGNOSTIC Referral ID Status Reason Start Date Expiration Date Visits Re quested Visits Authorized [id number] 1 1 Encounter Details Date Type Department Care Team (Latest Contact Info) Description 03/26/2016 1:45 PM EDT - 03/26/2016 5:20 PM EDT Hospital En[place] [address] Floyd Lopez MD [facility] [place] [place] [address] Discharge Disposition: Home Social History Tobacco Use [...] Sign Reading Time Taken Comments Blood Pressure 139/77 03/26/2016 4:49 PM EDT Pulse 79 03/26/2016 4:49 PM EDT Temperature - - Respiratory Rate 20 03/26/2016 4:49 PM EDT Oxygen Saturation 94% 03/26/2016 4:49 PM EDT Inhaled Oxygen Concentration - - Weight 101.2 kg (223 lb) 03/26/2016 2:16 PM EDT Height - - Body Mass Index 39.63 01/23/2016 8:40 AM EDT documented in this encounter Discharge Instructions * Discharge Instructions* Yumiko Quinones RN - 03/26/2016 4:39 PM EDT Colonoscopy What to expect after the [...] how often you need to be checked. Saturday-Uriel Same Day Endo [phone] 7a-8p Otherwise contact [phone] and ask to speak to the telecommunications engineer customer operations associate Follow up care is a perkins part of your treatment and safety. Be sure to make and go to all appointments, and call your doctor if you are having problems. Discharge instructions reviewed with patient who expresses understanding documented in this encounter Medications at Time of Discharge Medication Sig Dispensed Refills Start Date End Date acetaminophen (TYLENOL) 500 mg tablet Take 1,000 mg by mouth every 6 hours as needed. predniSONE (DELTASONE) 20 mg Tablet Take 2 tablets by mouth daily for 5 days. 10 tablet 03/19/2016 08/22/2016 gabapentin (NEURONTIN) 300 mg CapsuleIndications:Fi bromyalgia Take 1 capsule in the morning and 2 capsules in the afternoon and at bedtime. 150 capsule 11 03/12/2016 07/02/2016 DULoxetine (CYMBALTA) 20 mg Capsule, Delayed Release(E.C.) Take 1 capsule by mouth daily. 30 tablet 11 02/07/2016 07/02/2016 metFORMIN (GLUCOPHAGE-XR) 500 mg Tablet Sustained Release 24 hr Take 1 tablet by mouth daily. 30 tablet 12 01/23/2016 01/04/2017 hydrochlorothiazide (HYDRODIURIL) 25 mg TabletIndications:Araceli vated blood pressure Take 1 tablet by mouth [...] as of this encounter H&P Notes * Mohinder Cid MD - 03/26/2016 3:47 PM EDT Patient Name: Nancy Diego Patient Age: 50 y.o. Birthdate: 1965 Admit date: 03/26/2016 Attending Physician: Floyd Lopez MD . Gastroenterology and Hepatology Pre-Procedure History and Physical Exam Procedure: Colonoscopy: Indication:hematochezia Patient Active Problem List Diagnosis Code ??? Depression F32.9 ??? Irritable bowel syndrome K58.9 ??? GERD (gastroesophageal reflux disease) K21.9 ??? Peptic ulcer disease K27.9 ??? Migraines G43.909 ??? Elevated blood pressure I10 ??? Body mass index (BMI) of 39.0-39.9 in adult Z68.39 ??? Low back pain M54.5 EXAM: HEENT: Airway examined, oropharynx clear Mallampati Score: II (soft palate, uvula, fauces visible) LUNGS: Clear to auscultation HEART: Regular rate and rhythm, normal S1, S2 ABDOMEN: Normal bowel sounds, soft, non tender, non distended, A/P Proceed with the planned endoscopic procedure. ASA 2 - Patient with mild systemic disease with no functional limitations Sedation Plan: moderate (conscious sedation) Risks and benefits of the procedure explained to the patient. Consent signed. documented in this encounter Miscellaneous Notes * Brief Op Note - Mohinder Cid MD - 03/26/2016 4:38 PM EDT Brief Operative Note Patient Name: Nancy Diego : [id number] MR#: [id number] Case Date: 03/26/2016 Surgeon: Surgeon(s) and Role: * Mohinder Cid MD - Primary Preoperative diagnosis: BRBPR Postoperative diagnosis: external hemorrhoids Procedure(s): COLONOSCOPY FLEXIBLE, WITH BX Attestation: Case Date: 03/26/2016 I performed this procedure without the involvement of a resident. (Please see the Surgical Encounter Summary for any Implant and Specimen details pertinent to this patient.) documented in this encounter Plan of Treatment Not on file documented as of this encounter Procedures Procedure Name Priority Date/Time Associated Diagnosis Comments SURGICAL PATHOLOGY REPORT Routine 03/26/2016 4:39 PM EDT SPECIMEN TO PATHOLOGY Routine 03/26/2016 4:39 PM EDT SPECIMEN TO PATHOLOGY Routine 03/26/2016 4:39 PM EDT COLONOSCOPY FLEXIBLE, WITH BX (WRVU 3.56) 03/26/2016 3:54 PM EDT BRBPR COLONOSCOPY Routine 03/26/2016 3:44 PM EDT documented in this encounter Results * Surgical Pathology Report (03/26/2016 4:39 PM EDT) Final Diagnosis [id number] ? Location: 4T; EA05; A The signing pathologist has (i) examined the relevant preparation(s) for the specimen(s) and (ii) rendered or confirmed the diagnosis(es). . ?Surgical Pathology DIAGNOSIS A - Random colon, biopsy: - Colonic mucosa, negative for diagnostic abnormality. B - Rectum, polypectomy: - Hyperplastic polyp. CR-PX Electronically signed by: ??Maxx Mancia MD Verified: ??03/29/2016 ?Pathologist CLINICAL INFORMATION Specimen Submitted: A - Random Colon B - Rectal polyp Clinical History: Chronic diarrhea Clinical Diagnosis: Chronic diarrhea SPECIMEN PROCESSING A - Labeled/Fixative : Random colon, formalin. Quantity/Size: Two, 0.4 cm. Tissue Description: Soft, barajas-pink tissue. Sections/Process ing: (T1) B - Labeled/Fixative : Rectal polyp, formalin. Quantity/Size: Two, 0.2 and 0.3 cm. Tissue Description: Soft, barajas-pink tissue. Sections/Process ing: (T1) 03/29/2016 4:25 PM EDT [facility] GI Biopsy 03/26/2016 4:39 PM EDT 03/26/2016 4:39 PM EDT GI Biopsy 03/26/2016 4:39 PM EDT 03/26/2016 4:39 PM EDT Mohinder Cid MD PATHOLOGY/CYTOLOGY O YANI Performing Organization Address [facility] [place] [address] * Specimen to Pathology (surgical or derm) (03/26/2016 4:39 PM EDT) AP Specimen 03/26/2016 4:39 PM EDT 03/26/2016 4:39 PM EDT Narrative [facility] - 03/26/2016 4:39 PM EDT Specimen requisition ordered. ??Separate Pathology report to follow Mohinder Cid MD PATHOLOGY/CYTOLOGY O YANI Performing Organization Address [facility] [place] [address] * Specimen to Pathology (surgical or derm) (03/26/2016 4:39 PM EDT) AP Specimen 03/26/2016 4:39 PM EDT 03/26/2016 4:39 PM EDT Narrative [facility] - 03/26/2016 4:39 PM EDT Specimen requisition ordered. ??Separate Pathology report to follow Mohinder Cid MD PATHOLOGY/CYTOLOGY O YANI Performing Organization Address [facility] [place] [address] * COLONOSCOPY (03/26/2016 3:44 PM EDT) COLONOSCOPY [facility] Endoscopy Procedure Date: 03/26/2016 3:44 PM ? Patient Name: Nancy Diego ? Date of : 1965 ? Age: 50 ? Order #: [id number] ? Instrument Name: [id number] ? Procedure: ? Colonoscopy Indications: ? Hematochezia, chronic diarrhea Providers: ? Mohinder Cid MD, Ender Altamirano ? Jin, RN, Roz Saravia, Sorting Machine Attendant Referring : ?Nubia Botello Medicines: ? Fentanyl 150 micrograms IV, Midazolam ? 4 mg IV Complications: ? No immediate complications. Procedure: ? Pre-Anesthesia Assessment: ? - Prior to the procedure, a History ? and Physical was performed, and ? patient medications, allergies and ? sensitivities were reviewed. The ? patient's tolerance of previous ? anesthesia was reviewed. ? - The risks and benefits of the ? procedure and the sedation options ? and risks were discussed with the ? patient. All questions were answered ? and informed consent was obtained. ? - Patient identification and proposed ? procedure were verified prior to the ? procedure by the physician. The ? procedure was verified in the ? pre-procedure area. ? - Pre-procedure physical examination ? revealed no contraindications to ? sedation. ? - ASA Grade Assessment: II - A ? patient with mild systemic disease. ? - After reviewing the risks and ? benefits, the patient was deemed in ? satisfactory condition to undergo the ? procedure. ? - The anesthesia plan was to use ? moderate sedation/analgesia ? (conscious sedation). ? The procedure, indications, benefits, ? risks [...] quality of the ? bowel preparation was good. ? Findings: ? The perianal exam findings include non-thrombosed ? external hemorrhoids. ? The terminal ileum appeared normal. ? A 3 mm polyp was found in the rectum. The polyp was ? sessile. The polyp was removed with a jumbo cold ? forceps. Resection and retrieval were complete. ? The sigmoid colon was mildly tortuous. ? The exam was otherwise normal throughout the examined ? colon with random biopsies taken from the ascending ? andf transverse colon. ? Impression: ?- Non-thrombosed external hemorrhoids ? found on perianal exam likely ? etiology of hematochezia. ? - The examined portion of the ileum ? was normal. ? - One 3 mm polyp in the rectum. ? Resected and retrieved. ? - Tortuous colon. Recommendation: ?- Discharge patient to home ? (ambulatory). ? - Resume previous diet. ? - Continue present medications. ? - Await pathology results. ? - Return to referring physician as ? previously scheduled. ? _ Mohinder Cid MD 03/26/2016 4:33:24 PM Number of Addenda: 0 Note Initiated On: 03/26/2016 3:44 PM PROVATION 03/26/2016 3:44 PM EDT Nubia Botello APRN GENERAL SURGICAL ORDERABLES PROVATION documented in this encounter Visit Diagnoses Not on filedocumented in this encounter Administered Medications Inactive Administered Medications - up to 3 most recent administrations Medication Order MAR Action Action Date Dose Rate Site lactated ringers infusion 100 mL/hr, Intravenous, CONTINUOUS, Starting on Sat03/26/16 at 1430, Until Sat03/26/16 at 1653, Endoscopy (Day of Procedure) New Bag 03/26/2016 2:26 PM EDT 100 mL/hr 100 mL/hr documented in this encounter Active and Recently Administered Medications Times are shown in EDT. Continuous Medication Order 03/24/2016 03/25/2016 03/26/2016 lactated ringers infusion (CANCELED) 100 mL/hr, Intravenous, CONTINUOUS, Starting on Sat03/26/16 at 1430, Until Sat03/26/16 at 1653, Endoscopy (Day of Procedure) 1426 (New Bag - Prov ider: Yumiko Quinones RN) PRN Medication Order 03/24/2016 03/25/2016 03/26/2016 fentaNYL 50 mcg/mL multi-dose injection (CANCELED) ONCE PRN, Starting on Sat03/26/16 at 1556, Until Sat03/26/16 at 1920, Intra-Operative (Intra-Procedure), Routine 1556 (Given - Provid er: Ender Abdi RN)1601 (Given - Provider: Ender Abdi RN)1604 (Given - Provider: Ender Abdi RN)1614 (Given - Provider: Ender Abdi RN)1615 (Given - Provider: Ender Abdi RN) midazolam (PF) (VERSED) 1 mg/mL multi-dose injection (CANCELED) ONCE PRN, Starting on Sat03/26/16 at 1556, Until Sat03/26/16 at 1920, Intra-Operative (Intra-Procedure), Routine 1556 (Given - Provid er: Ender Abdi RN)1558 (Given - Provider: Ender Abdi RN)1601 (Given - Provider: Ender Abdi RN)1604 (Given - Provider: Ender Abdi RN)1614 (Given - Provider: Ender Abdi RN) documented in this encounter Care Teams Chief Procurement Officer Relationship Specialty Start Date End Date Nubia Botello, GARY [facility] [address] [address] PCP - General 01/16/14 01/28/19 documented as of this encounter
--- OUTSIDE RECORDS SUMMARY | 2024-04-03 16:06 | XMS_ITS | Encounter Summary ---
Author Organization [facility] [place] [address] Care Team Providers Care Land Classifier Name Role Phone Nubia Conley APRN Primary Care Provider + Reason for Visit * Reason Onset Date Comments Prior Authorization 01/23/2016 Encounter Details Date Type Department Care Team (Late st Contact Info) Description 01/23/2016 Telephone Internal Medicine at [address] [address] Yuki Galdamez press bucker Social History Tobacco Use Types Packs/Day Years [...] as of this encounter Miscellaneous Notes * Addendum Note - Bryanna Cortes MA - 01/24/2016 9:21 AM EDTAddended by: BRYANNA CORTES on: 01/24/2016 09:21 AM Modules accepted: Level of Service * Telephone Encounter - Yuki Galdamez RN - 01/23/2016 8:21 [place] [address] ? Patient: Nancy Diego ?? Patient : 1965 ? Subscriber Insurance: [place] Medicaid ?? Insurance Phone #: [phone] ?? Sent via: CoverMyMeds ?? Lane: [id number] ?? Physician: NUBIA CONLEY APRN ? Return ?? Medication Requested: duloxetine Strength: 30 mg capsule ? Frequency: Take 30 mg daily for one week, then Increase to 60 mg daily. Disp.: 7 Refills: 0 ?? Currently taking: no ?? Diagnosis for this medication: Chronic Pain ICD-10 code: G89.2 ?? Prior medications trialed in this patient: ?? Medication: amitriptyline Approx Dates: 03/17/2014-06/19/2014 Outcome/Adverse Reactions: Inadequate response ? Medication: gabapentin Approx Dates: 12/01/15-present Outcome/Adverse Reactions: Inadequate response by itself. Cannot tolerate increasing the dose. Too many side effects. Will fill out the forms and send to Medicaid. ?? Will need to fill out another PA form * Telephone Encounter - Yuki Galdamez RN - 01/23/2016 8:20 AM EDT ----- Message from Nubia Conley APRN sent at 01/22/2016 10:20 PM EDT ----- I have ordered cymbalta in past and denied because not on max dose of gabapentin. However, she is having s/e and do not think that can go up to higher dose and still having pain. Can you please coordinate with prior auth dept to have request redone to insurance company. Thanks documented in this encounter Plan of Treatment Not on file documented as of this encounter Visit Diagnoses Not on filedocumented in this encounter Care Teams Land Classifier Relationship Specialty Start Date End Date Nubia Conley APRN [facility] [address] [place] [address] PCP - General 01/16/14 01/28/19 documented as of this encounter
--- OUTSIDE RECORDS SUMMARY | 2024-04-03 16:06 | XMS_ITS | Encounter Summary ---
Author Organization [facility] [place] [address] Care Team Providers Care Internal Recruiter Name Role Phone Nubia Botello APRN Primary Care Provider + Reason for Visit * Auth/Cert Specialty Diagnoses / Procedures Referred By Dennis daniels Referred To Contact Diagnoses BRBPR Procedures PRO COLONOSCOPY, DIAGNOSTIC COLONOSCOPY, DIAGNOSTIC Referral ID Status Reason Start Date Expiration Date Visits Re quested Visits Authorized [id number] 1 1 Encounter Details Date Type Department Care Team (Late st Contact Info) Description 03/26/2016 3:30 PM EDT - 03/26/2016 4:15 PM EDT Surgery Gastroenterology at [facility] [place] [address] Mohinder Cid [place] [address] COLONOSCOPY FLEXIBLE, WITH BX (WRVU 3.56) Social History Tobacco Use Types Packs/Day Years [...] to be checked. Saturday-Saturday Same Day Endo [phone] [id number] Otherwise contact [phone] and ask to speak to the protective signal installer asset protection assistant Follow up care is a perkins part [...] Operative Note Patient Name: Nancy Diego : [id number] MR#: [id number] Case Date: 03/26/2016 Surgeon: Surgeon(s) and Role: [...] Report (03/26/2016 4:39 PM EDT) Final Diagnosis [id number] ? Location: T; [facility]; A The signing pathologist has (i) examined [...] Sections/Process ing: (T1) 03/29/2016 4:25 PM EDT [facility] GI Biopsy 03/26/2016 4:39 PM EDT 03/26/2016 4:39 PM EDT GI Biopsy 03/26/2016 4:39 PM EDT 03/26/2016 4:39 PM EDT Mohinder Cid MD PATHOLOGY/CYTOLOGY O YANI Performing Organization Address [facility] [[email or web address]] [place] [address] * Specimen to Pathology (surgical or derm) (03/26/2016 4:39 PM EDT) AP Specimen 03/26/2016 4:39 PM EDT 03/26/2016 4:39 PM EDT Narrative [facility] - 03/26/2016 4:39 PM EDT Specimen requisition ordered. ??Separate Pathology report to follow Mohinder Cid MD PATHOLOGY/CYTOLOGY O YANI Performing Organization Address [facility] [[email or web address]] [place] [address] * Specimen to Pathology (surgical or derm) (03/26/2016 4:39 PM EDT) AP Specimen 03/26/2016 4:39 PM EDT 03/26/2016 4:39 PM EDT Narrative [facility] - 03/26/2016 4:39 PM EDT Specimen requisition ordered. ??Separate Pathology report to follow Mohinder Cid MD PATHOLOGY/CYTOLOGY Shabbir LOMELI Performing Organization Address [facility] [[email or web address]] [place] [address] * COLONOSCOPY (03/26/2016 3:44 PM EDT) COLONOSCOPY [facility] Endoscopy Procedure Date: 03/26/2016 3:44 PM ? Patient Name: Nancy Diego ? Date of : 1965 ? Age: 50 ? Order #: [id number] ? Instrument Name: [id number] ? Procedure: ? Colonoscopy Indications: ? Hematochezia, chronic diarrhea Providers: ? Mohinder Cid MD, Ender Altamirano ? Jin, RN, Roz Saravia, Pipe Tester Referring : ?Nubia Botello Medicines: ? Fentanyl [...] PROVATION 03/26/2016 3:44 PM EDT Nubia Botello [facility] PROVATION documented in this encounter Visit Diagnoses Not on filedocumented in this encounter Administered Medications Inactive Administered Medications - up to 3 most recent administrations Medication Order MAR Action Action Date Dose Rate Site fentaNYL 50 mcg/mL multi-dose injection ONCE PRN, Starting on 03/26/16 at 1556, Until Sat03/26/16 at 1920, Intra-Operative (Intra-Procedure), Routine Given 03/26/2016 4:15 PM EDT 25 mcg Right Arm Given 03/26/2016 4:14 PM EDT 25 mcg Ri ght Arm Given 03/26/2016 4:04 PM EDT 25 mcg Ri ght Arm lactated ringers infusion 100 mL/hr, Intravenous, CONTINUOUS, Starting on Sat03/26/16 at 1430, Until Sat03/26/16 at 1653, Endoscopy (Day of Procedure) New Bag 03/26/2016 2:26 PM EDT 100 mL/hr 100 mL/hr midazolam (PF) (VERSED) 1 mg/mL multi-dose injection ONCE PRN, Starting on Sat03/26/16 at 1556, Until 03/26/16 at 1920, Intra-Operative (Intra-Procedure), Routine Given 03/26/2016 4:14 PM EDT 0.5 mg Right Arm Given 03/26/2016 4:04 PM EDT 0.5 mg Ri ght Arm Given 03/26/2016 4:01 PM EDT 1 mg Ri ght Arm documented in this encounter Active and Recently [...] RN) documented in this encounter Care Teams Internal Recruiter Relationship Specialty Start Date End Date Nubia Botello APRN [facility] [place] [address] PCP - General 01/16/14 01/28/19 documented as of this encounter
--- OUTSIDE RECORDS SUMMARY | 2024-04-03 16:06 | XMS_ITS | Encounter Summary ---
Author Organization Formerly [facility] [place] [address] Care Team Providers Care Rotary Helper Name Role Phone Nubia Botello APRN Primary Care Provider + Reason for Visit * Reason Onset Date Comments Prior Authorization 12/27/2015 Encounter Details Date Type Department Care Team (Late st Contact Info) Description 12/27/2015 Telephone Internal Medicine at [address] [id number] Viky Robbins Prior Authorization Social History Tobacco Use Types [...] Telephone Encounter - Consuelo Delaney RN - 12/27/2015 2:47 PM EDT TC to patient to inform of denial of cymbalta, and new order for Nortriptyline. Instructed to take nightly for a month and call back if not working for pain. She v/u and agreed. * Telephone Encounter - Viky Robbins - 12/27/2015 1:23 PM EDT Patient called stating her insurance denied her duluxetina. See PA note dated 12-22-15. How can thisbe resolved urgently for the patient? Viky documented in this encounter Plan of Treatment Not on file documented as of this encounter Visit Diagnoses Not on filedocumented in this encounter Care Teams Rotary Helper Relationship Specialty Start Date End Date Nubia Botello APRN [facility] [address] [address] PCP - General 01/16/14 01/28/19 documented as of this encounter
--- OUTSIDE RECORDS SUMMARY | 2024-04-03 16:06 | XMS_ITS | Encounter Summary ---
Author Organization [facility] [place] [address] Care Team Providers Care Co Op Name Role Phone Nubia Conley APRN Primary Care Provider + Reason for Visit * Reason Comments Pain one month followup Hypertension one month followup Encounter Details Date Type Department Care Team (Late st Contact Info) Description 12/22/2015 9:00 AM EDT Office Visit Internal Medicine at [address] [address] Nubia Conley EXECUTIVE SECRETARY [facility] [address] Chronic low back pain without sciatica, unspecified back pain laterality; Screening cholesterol level; Elevated blood pressure; Fibromyalgia Social History Tobacco Use Types Packs/Day [...] Sign Reading Time Taken Comments Blood Pressure 149/78 12/22/2015 8:58 AM EDT Pulse 85 12/22/2015 8:58 AM EDT Temperature 36.7 ??C (98.1 ??F) 12/22/2015 8:50 AM ED T Respiratory Rate - - Oxygen Saturation 99% 12/22/2015 8:50 AM EDT Inhaled Oxygen Concentration - - Weight 100.9 kg (222 lb 6.4 oz) 12/22/2015 8:50 AM EDT Height 159.8 cm (5' 2.91) 12/22/2015 8:50 AM ED T reported Body Mass Index 39.51 12/22/2015 8:50 AM EDT documented in this encounter Progress Notes * Nubia Conley APRN - 12/22/2015 9:01 AM EDT Images from the original note were not included. PCP: NUBIA CONLEY APRN Chief Complaint Patient presents with ??? Pain one month followup SUBJECTIVE: Nancy Diego is a 50 y.o. female who presents for follow up for pain and hypertension. - hip and back pain is 8/10. She reports that she has sharp pain. The gabapentin is not working andoxycodone did not work - tylenol and ibuprofen for the pain control. - she can tell when she is on the gabapentin, but it is not cutting pain down significantly. It didmake her very tired at first. She is able to sleep with the medication - she is still working, she cannot stop because she would lose her job. 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 This makes the low back pain much worse - she is scheduled to work 2 12 hour shifts and an 8 hour shift this weekend. Blood pressure- she is doing well. No side effects. Review of Systems Constitutional: Negative for chills and fever. Respiratory: Negative for cough and shortness of breath. Cardiovascular: Negative for chest pain and palpitations. Musculoskeletal: Positive for arthralgias, back pain and myalgias. Psychiatric/Behavioral: Positive for dysphoric mood. The patient is nervous/anxious. Allergies Allergen Reactions ??? Latex Skin cracks and bleeds ??? Penicillins Rash Current Outpatient Prescriptions Medication Sig Dispense Refill ??? gabapentin (NEURONTIN) 300 mg Capsule Take 1 capsule nightly x 1 week then increase to twice daily 60 capsule 1 ??? hydrochlorothiazide (MICROZIDE) 12.5 mg Capsule Take 1 capsule by mouth daily. 90 capsule 0 ??? albuterol (PROAIR HFA) 90 mcg/actuation [...] adult Z68.39 ??? Low back pain M54.5 OBJECTIVE: Vitals: 12/22/15 0850 12/22/15 0858 BP: 143/79 149/78 BP Location (NBP): Right arm Right arm Patient Position: Sitting Sitting BP Cuff Sizes: Large Adult (32-43 cm) Large Adult (32-43 cm) Pulse: 84 85 Temp: 36.7 ??C (98.1 ??F) TempSrc: Oral SpO2: 99% Weight: (!) 100.9 kg (222 lb 6.4 oz) Height: 159.8 cm (5' 2.91) PHYSICAL EXAM: Physical Exam Constitutional: She is oriented to person, place, and time. She appears well- developed and well-nourished. No distress. HENT: Head: Normocephalic and atraumatic. Eyes: Conjunctivae are normal. Cardiovascular: Normal rate, regular rhythm and normal heart sounds. No murmur heard. No LE edema Pulmonary/Chest: Effort normal and breath sounds normal. She has no wheezes. She has no rales. She exhibits no tenderness. Abdominal: Soft. She exhibits no distension. There is no tenderness. Musculoskeletal: Lumbar back: She exhibits decreased range of motion, tenderness (tenderness to palpation of multiple areas of her back) and pain. She exhibits no spasm. Back: Neurological: She is alert and oriented to person, place, and time. Skin: Skin is warm and dry. Psychiatric: She has a normal mood and affect. Her behavior is normal. Judgment and thought contentnormal. Vitals reviewed. - tenderness to palpation of shoulders, and legs as well. ASSESSMENT & PLAN: Nancy was seen today for pain and hypertension. Diagnoses and all orders for this visit: Chronic low back pain without sciatica, unspecified back pain laterality - see below for plan for chronic pain - do not want her lifting. Encouraged her to go to light duty for awhile. She says that she cannot do that or she will lose her job - after further discussion she agreed to avoid lifting until next Saturday. Note given for her employer. Screening cholesterol level - Lipid panel (fasting) Elevated blood pressure - BMP w/fasting Glucose; Future - hydrochlorothiazide (HYDRODIURIL) 25 mg Tablet; Take 1 tablet by mouth daily. - BMP w/fasting Glucose - increase HCTZ to 25 mg daily - f/u one month, will check labs today Fibromyalgia - DULoxetine (CYMBALTA) 30 mg Capsule, Delayed Release(E.C.); Take 2 capsules by mouth daily. Take 30 mg daily for one week, then Increase to 60 mg daily. - gabapentin (NEURONTIN) 300 mg Capsule; Take 1 capsule by mouth 3 times daily. - lyrica was not approved b/c had not tried gabapentin. She has had amitriptyline and that did not work for her at all in the past. - Gabapentin in not providing much release for pain. I think that she needs another medication in addition to the gabapentin. Will increase dose to 300 mg TID and will start her on Cymbalta, as it may help with her depression as well as the fibromyalgia/chronic pain - no relief with narcotics- will not renew. * Claudette Green - 12/22/2015 9:00 AM EDT ESTABLISHED PATIENT VISIT Chief Complaint Patient presents with ??? Pain one month followup ??? Hypertension one month followup Pt is a 50 y.o. who presents for monthly follow up visit. Hip and back pain: Chronic issue, patient states pain all over, right down to my ankles, describes worst pain at hipand lower back, rates 8-9/10, characterizes as sharp stabbing pain Patient experiences pain at rest as well, nothing helps with the pain Oxycodone treatment for 20 days and not helpful at all Insurance did not approve for lyrica treatment and has been on Gabapentin Does not think gabapentin helps but I do notice when it's in my system HTN: Started on hydrochlorothiazide and tolerated it well with no adverse effect Denies any dizziness, lightheadedness, or increased urinary frequency Smoking cessation: Does not want to discuss the issue at this appointment ROS: Constitutional - no fevers, chills, weight loss or gain, fatigue HEENT - No difficulty swallowing, hearing, No nasal congestion or postnasal drip Respiratory - No new SOB, LAYNE, wheeze, cough, sputum production Cardiovascular - No new CP, palpitations, angina, edema, claudication Gastrointestinal - No new abdominal pain, nausea, GERD, constipation, diarrhea, blood in stool - no new difficulty urinating, incontinence or dysuria. Musculoskeletal - No new weakness, pain at rest or with movement Skin - no new rashes All other systems negative Patient Active Problem List Diagnosis ??? Low back pain ??? Body mass index (BMI) of 39.0-39.9 in adult ??? Irritable bowel syndrome ??? GERD (gastroesophageal reflux disease) ??? Peptic ulcer disease ??? Migraines ??? Elevated blood pressure ??? Depression Current Outpatient Prescriptions on File Prior to Visit Medication Sig Dispense Refill ??? gabapentin (NEURONTIN) 300 mg Capsule Take 1 capsule nightly x 1 week then increase to twice daily 60 capsule 1 ??? hydrochlorothiazide (MICROZIDE) 12.5 mg Capsule Take 1 capsule by mouth daily. 90 capsule 0 ??? albuterol (PROAIR HFA) 90 mcg/actuation [...] hours as needed. No current facility-administered medications on file prior to visit. Allergies Allergen Reactions ??? Latex Skin cracks and bleeds ??? Penicillins Rash Social History Social History ??? Marital status: [...] Tobacco In Home Yes Social History Narrative Physical Exam: BP 149/78 (BP Location (NBP): Right arm, Patient Position: Sitting, BP Cuff Sizes: Large Adult (32-43 cm)) Pulse 85 Temp 36.7 ??C (98.1 ??F) (Oral) Ht 159.8 cm (5' 2.91) Comment: reported Wt (!) 100.9 kg (222 lb 6.4 oz) SpO2 99% BMI 39.51 kg/m2 General - In mild distress from chronic pain ENT - Mouth without lesions. Eyes- Xanthelasmas on the eyelids bilaterally. EOMI. Not jaundiced. Noninjected Neck - No lymphadenopathy. No thyromegaly Lungs - Clear to auscultation. Heart - RRR, S1,S2, no audible murmur, gallop or rub. Abdomen/GI - Soft, nontender, neg hsm or masses. Extremities - No clubbing, cyanosis or edema. Pulses intact. Assessment and Plan: Nancy was seen today for pain and hypertension. Diagnoses and all orders for this visit: Chronic low back pain without sciatica, unspecified back pain laterality Screening cholesterol level Elevated blood pressure - BMP w/fasting Glucose; Future Chronic pain: Patient could likely benefit from a combination of anti-depressant and pain medication. Does not want any physical therapy. Understands that switching to a less physically demanding job is important but doesn't think that's possible at all. Previously tried amitriptyline, flexeril and did not work.Though patient's symptoms are more consistent with fibromyalgia, insurance did not approve for lyrica. - Increase Gabapentin to 300mg three times a day - Start Cymbalta for pain control though will check with insurance regarding coverage first HTN: - F/u with fasting lab as well as BMP - Increase hydrochlorothiazide to 25mg daily documented in this encounter Plan of Treatment Not on file documented as of this encounter Procedures Procedure Name Priority Date/Time Associated Diagnosis Comments BMP W/FASTING GLUCOSE Routine 12/22/2015 10:01 AM EDT Elevated blood pressure LDL CHOLESTEROL, DIRECT Routine 12/22/2015 10:01 AM EDT LIPID PANEL (REFLEX DIRECT LDL) Routine 12/22/2015 10:01 AM EDT Screening cholesterol level documented in this encounter Results * (ABNORMAL) LDL Cholesterol, Direct (12/22/2015 10:01 AM EDT) LDL Cholesterol, Direct 102(H) <=99 mg/dL [facility] Comment: The National Cholesterol Education Program (NCEP) has set the following guidelines for LDL Cholesterol: Reference range: ?? Optimal: ?<100 mg/dL ?? Near Optimal/Above Optimal: ?? 100-129 mg/dL ?? Borderline high: ?130-159 mg/dL ?? High: ? 160-189 mg/dL ?? Very high: ?>uc=763 mg/dL DANIELLE 2001: 285(19):[phone] Blood specimen (specimen) 12/22/2015 10:01 AM EDT 12/22/2015 12:40 PM EDT Narrative Resulting Agency Comment Spec In Lab Vamsi Bey MD CHEMISTRY ORDERABLES [facility] [place] [place] [address] * (ABNORMAL) Lipid panel (fasting) (12/22/2015 10:01 AM EDT) Cholesterol, Total 186 <=199 mg/dL [facility] Comment: Recommendations of the NCEP Adult Treatment Panel for the following risk cutoff thresholds for the [place] population: Desirable: <200 mg/dL Borderline High: 200-239 mg/dL High: > or = 240 mg/dL Triglyceride 551(H) <=149 mg/dL [facility] Comment: Reference Range: Normal triglycerides: ??<150 mg/dL Borderline high: ??150-199 mg/dL High: ??200-499 mg/dL Very high: ??>yo=982 mg/dL DANIELLE 2001; 285(19):1133-2331 HDL Cholesterol 30(L) >=40 mg/dL [facility] Comment: Reference range: ??Low HDL: ?? < 40 mg/dL ??Normal: ?40-60 mg/dL ??Desirable: > 60 mg/dL DANIELLE 2001; 285(19):[phone] LDL Cholesterol Not Calculated <=99 mg/dL [facility] Comment: Since a calculated LDL value is not valid for triglycerides greater than 400 mg/dl, a direct LDL determination is performed instead. Reference range: ?? Optimal: ?<100 mg/dL ?? Near Optimal/Above Optimal: ?? 100-129 mg/dL ?? Borderline high: ?130-159 mg/dL ?? High: ? 160-189 mg/dL ?? Very high: ?>es=537 mg/dL DANIELLE 2001: 285(19):1734-3710 Cholesterol/HDL Ratio 6.[address] [facility] Comment: A Cholesterol to HDL ratio below 4:1 is desirable. ??Studies suggest that increased CAD risk occurs at ratios above 5 for females and above 6 for men. ? [place] Heart Association ??(http://www.americanheart.org) ? Monse Int Med, 1994; 121:641 ? AM J Med, 1998; 105(1A):48S Blood specimen (specimen) 12/22/2015 10:01 AM EDT 12/22/2015 12:27 PM EDT Narrative Resulting Agency Comment Spec In Lab Vamsi Bey MD CHEMISTRY ORDERABLES [facility] [place] [address] * (ABNORMAL) BMP w/fasting Glucose (12/22/2015 10:01 AM EDT) Glucose Fasting 115(H) 65 - 99 mg/dL [facility] Comment: ?Fasting* Glucose Interpretive Criteria [...] of Diabetes Mellitus, Position Statement from the [place] Diabetes Association. ??Diabetes Care, Volume 33, Supplement 1, Jun 2009 Blood Urea Nitrogen 14 8 - 18 mg/dL [facility] Creatinine 0.86 0.70 - 1.20 mg/dL [facility] Comment: Please note that the pediatric reference intervals supplied above were not validated at [facility]. Results from pediatric patients should be interpreted in conjunction to the patient's age, height and muscle mass. Sodium 141 135 - 145 mmol/L [facility] Potassium 4.4 3.5 - 5.0 mmol/L [facility] Comment: Please note: ??Patients with WBC >100,000 may have falsely elevated Potassium levels. ??For accurate Potassium quantification in these patients send serum separator tube (gold top) for subsequent determinations. ??Contact the Clinical Chemistry Laboratory if there are any questions. Chloride 101 98 - 107 mmol/L [facility] Carbon Dioxide 25 22 - 31 mmol/L [facility] Anion Gap 15 5 - 15 mmol/L [facility] Calcium 9.4 8.5 - 10.5 mg/dL [facility] Est Glomerular Filtration Rate >60 >=60 [facility] Comment: This estimated GFR (eGFR) [...] the following links into your internet browser. [email or web address] Blood specimen (specimen) 12/22/2015 10:01 AM EDT 12/22/2015 12:27 PM EDT Narrative Resulting Agency Comment Spec In Lab Katie Ervin MD CHEMISTRY ORDERABLES [facility] [place] [place] [address] documented in this encounter Visit Diagnoses Diagnosis Chronic low back pain without sciatica, unspecified back pain laterality Screening cholesterol level Screening for lipoid disorders Elevated blood pressure Elevated blood pressure reading without diagnosis of hypertension Fibromyalgia Mylagia and myositis, unspecified documented in this encounter Care Teams Co Op Relationship Specialty Start Date End Date Nubia Conley APRN [facility] [place] [address] PCP - General 01/16/14 01/28/19 documented as of this encounter
--- OUTSIDE RECORDS SUMMARY | 2024-04-03 16:06 | XMS_ITS | Encounter Summary ---
Author Organization Formerly [facility] [place] [address] Care Team Providers Care Latin Dance Instructor Name Role Phone Nubia Conley APRN Primary Care Provider + Reason for Visit * Reason Onset Date Comments Prior Authorization 02/08/2016 duloxetine Encounter Details Date Type Department Care Team (Late st Contact Info) Description 02/08/2016 Telephone Family Medicine at [facility] [address] [place] [address] Bryanna Cortes CCMA Prior Authorization (duloxetine) Social History Tobacco Use Types Packs/Day Years [...] Notes * Telephone Encounter - Bryanna Cortes MA - 02/09/2016 11:32 AM EDT Medication Prior Authorization for Primary [place] [address] Approve: X Start Date: 02/08/16 End Date: 02/07/17 Case/Reference #: [id number] * Telephone Encounter - Bryanna Cortes MA - 02/08/2016 12:00 PM EDT Medication Prior Authorization for Primary Care ?? [place] [address] ? Patient: Nancy Diego ?? Patient : 1965 ? Subscriber Insurance: [place] Medicaid ?? Insurance Phone #: [phone] ?? Sent via: CoverMyMeds ?? Lane: [id number] ?? Physician: NUBIA CONLEY APRN ? Return ?? Medication Requested: duloxetine Strength: 20 mg capsule ? Frequency: Take one capsule by mouth daily Disp.: 30 Refills: 11 ?? Currently taking: no ?? Diagnosis for this medication: Fibromyalgia ICD-10 code: M79.7 ?? Prior medications trialed in this patient: ?? Medication: amitriptyline Approx Dates: 03/17/2014-06/19/2014 Outcome/Adverse Reactions: Inadequate response ?Medication: gabapentin 300 mg QID Approx Dates: 12/01/15-present Outcome/Adverse Reactions: Inadequate response by itself, and causes extreme fatigue ?Medication: nortriptyline Approx Dates: 12/2015-present Outcome/Adverse Reactions: Inadequate response ? documented in this encounter Plan of Treatment Not on file documented as of this encounter Visit Diagnoses Not on filedocumented in this encounter Care Teams Latin Dance Instructor Relationship Specialty Start Date End Date Nubia Conley APRN [facility] [address] [address] PCP - General 01/16/14 01/28/19 documented as of this encounter
--- OUTSIDE RECORDS SUMMARY | 2024-04-03 16:06 | XMS_ITS | Encounter Summary ---
Author Organization [facility] Address [facility] [place] [address] Care Team Providers Care Hand Or Machine Paster Name Role Phone Nubia Botello APRN Primary Care Provider + Reason for Visit * Reason Comments Shoulder Pain left arm for about a week. Encounter Details Date Type Department Care Team (Late st Contact Info) Description 01/25/2015 11:28 AM EDT - 01/25/2015 12:12 PM EDT Emergency [place] [address] Arvind Munoz MD [facility] [place] [address] Left shoulder strain, initial encounter Discharge Disposition: Home Social History Tobacco Use [...] Sign Reading Time Taken Comments Blood Pressure 157/92 01/25/2015 11:35 AM EDT Pulse 86 01/25/2015 11:35 AM EDT Temperature 36.6 ??C (97.9 ??F) 01/25/2015 11:35 AM E DT Respiratory Rate 14 01/25/2015 11:35 AM EDT Oxygen Saturation 98% 01/25/2015 11:35 AM EDT Inhaled Oxygen Concentration - - Weight 90.7 kg (200 lb) 01/25/2015 11:35 AM EDT Height - - Body Mass Index 35.43 11/19/2014 8:54 AM EDT documented in this encounter Discharge Instructions * Discharge Instructions* Tyrel Bacon PA - 01/25/2015 12:04 PM EDT Ice to the effected areas as helpful. Use ibuprofen or Naprosyn. You may also use Tylenol if helpful. Oxycodone as prescribed at nighttime only. Please do gentle pendulum exercises to loosen your shoulder. Please do these 5-6 times daily. Reevaluate with any worsening symptoms. * Attachments The following attachments cannot be sent through Care Everywhere. * SHOULDER SPRAIN (S[place]HALA) documented in this encounter Medications at Time of Discharge Medication Sig Dispensed Refills Start Date End Date acetaminophen (TYLENOL) 500 mg tablet Take 1,000 mg by mouth every 6 hours as needed. oxyCODONE (ROXICODONE) 5 mg Tablet Take 1 tablet by mouth nightly as needed for Pain. 7 tablet 0 01/25/2015 04/08/2015 lisinopril (PRINIVIL;ZESTRIL) 20 mg Tablet Take 1 tablet by mouth daily. 30 tablet 12 11/19/2014 04/08/2015 naproxen (NAPROSYN) 500 mg Tablet Take 1 tablet by mouth 2 times daily (with meals). 60 tablet 12 08/27/2014 11/24/2015 ibuprofen (ADVIL;MOTRIN) 800 mg Tablet Take 1 tablet by mouth every 8 hours as needed. 30 tablet 0 08/12/2014 03/29/2017 albuterol (PROAIR HFA) 90 mcg/actuation inhaler Inhale 2 puffs into the lungs every 4 hours as needed for Wheezing. Use with spacer 1 Inhaler 1 07/20/2013 04/08/2015 documented as of this encounter ED Notes * Tyrel Bacon PA - 01/25/2015 11:59 AM EDT Chief Complaint Patient presents with ??? Shoulder Pain left arm for about a week. The history is provided by the patient. 49-year-old right-hand dominant female comes in today for evaluation of left shoulder pain. She says her shoulder is been painful in the anterior and lateral aspect for approximately 7 days. It started the morning after she woke up after sleeping on her arm all night. She denies numbness or tingling. She says it's a sharp stabbing pain in her shoulder that is worse with movement. 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 She has been using ibuprofen with some improvement. She denies numbness or tingling. She denies neck pain. Denies pain in the elbow or the wrist. She says that when she does use her shoulder it feels stiff. She denies any other symptoms at this time. She denies any significant past history of shoulder problems. Additionally she also has not had any chest pain or shortness of breath. Allergies Allergen Reactions ??? Latex Skin cracks and bleeds ??? Penicillins Rash Review of Systems Constitutional: Negative for fever. HENT: Negative for sore throat and trouble swallowing. Respiratory: Negative for cough and shortness of breath. Cardiovascular: Negative for chest pain. Gastrointestinal: Negative for nausea and vomiting. Musculoskeletal: Positive for arthralgias (left shoulder). Negative for neck pain and neck stiffness. Skin: Negative for rash and wound. Neurological: Negative for light-headedness, numbness and headaches. Physical Exam Constitutional: She is oriented to person, place, and time. She appears well- developed and well-nourished. HENT: Head: Normocephalic and atraumatic. Neck: Normal range of motion and full passive range of motion without pain. Neck supple. Musculoskeletal: Left shoulder: She exhibits decreased range of motion and tenderness (randy the supraspinatus, anterior biceps tendon, and lateral deltoid.). She exhibits no bony tenderness, no swelling, no effusion, no crepitus, no deformity, no laceration, normal pulse and normal strength. Left elbow: Normal. Left wrist: Normal. Left hand: Normal. Normal sensation noted. Normal strength noted. Neurological: She is alert and oriented to person, place, and time. Skin: Skin is warm and dry. Psychiatric: Her behavior is normal. Nursing note and vitals reviewed. Procedures MDM ED Course: The patient was evaluated as above. She has significant tenderness through her left shoulder with no evidence of bony abnormality. She has no impact injury. Her findings are consistent with a musculoskeletal strain of the shoulder. She will be placed in a sling for 3 days. She was encouraged to use ibuprofen or Naprosyn. Ice for the next several days and gentle pendulum exercises 5-6 times daily. Reevaluate with any worsening symptoms or if not improved in 7 days. Tyrel Bacon PA 01/25/15 1203 documented in this encounter Miscellaneous Notes * ED Triage - Ender Amor RN - 01/25/2015 11:39 AM EDT Pt co pain in the left shoulder pt. Is A&O,skin p/w/d, resp even pt. Had had this pain for a week denied any trauma to shoulder. Had good distal csm. documented in this encounter Plan of Treatment Not on file documented as of this encounter Visit Diagnoses Diagnosis Left shoulder strain, initial encounter documented in this encounter Care Teams Hand Or Machine Paster Relationship Specialty Start Date End Date Nubia Botello, [facility] [place] [id number] PCP - General 01/16/14 01/28/19 documented as of this encounter
--- OUTSIDE RECORDS SUMMARY | 2024-04-03 16:06 | XMS_ITS | Encounter Summary ---
Author Organization [facility] [place] [address] Care Team Providers Care Solar Process Engineer Name Role Phone Nubia Botello APRN Primary Care Provider + Reason for Referral * Consultation (Routine) - Closed Specialty Diagnoses / Procedures Referred By Dennis daniels Referred To Contact Rheumatology Diagnoses Arthralgia, unspecified joint Fibromyalgia Nubia Botello APRN [facility] [place] [address] [facility] [address] [place] [phone] Referral ID Status Reason Start Date Expiration Date V isits Requested Visits Authorized [id number] Closed Specialty Service Requested 11/28/2016 11/28/2017 1 1 * Consultation (Routine) - Duplicate Referral Specialty Diagnoses / Procedures Referred By Dennis daniels Referred To Contact Sleep Center Diagnoses Suspected sleep apnea Nocturnal oxygen desaturation Nubia Botello APRN [facility] [place] [address] [facility] Sleep Medicine [address] [place] [address] Referral ID Status Reason Start Date Expiration Date Visits Requested Visits Authorized [id number] Duplicate Referral Specialty Service Requested 11/28/2016 11/28/2017 1 1 Reason for Visit * Reason Comments Annual Exam Encounter Details Date Type Department Care Team (Late st Contact Info) Description 11/26/2016 9:40 AM EDT Office Visit Internal Medicine at [address] [address] Nubia Botello APRN [facility] [place] [address] Health care maintenance (Primary Dx); Type 2 diabetes mellitus without complication, without long-term current use of insulin; Arthralgia, unspecified joint; Fatigue, unspecified type; Suspected sleep apnea; Nocturnal oxygen desaturation; Fibromyalgia Social History Tobacco Use Types Packs/Day [...] Sign Reading Time Taken Comments Blood Pressure 157/84 11/26/2016 9:25 AM EDT Pulse 89 11/26/2016 9:25 AM EDT Temperature - - Respiratory Rate - - Oxygen Saturation 96% 11/26/2016 9:25 AM EDT Inhaled Oxygen Concentration - - Weight 107 kg (236 lb) 11/26/2016 9:25 AM EDT Height 159.8 cm (5' 2.9) 11/26/2016 9:25 AM EDT Body Mass Index 41.94 11/26/2016 9:25 AM EDT documented in this encounter Progress Notes * Nubia Botello APRN - 11/26/2016 9:40 AM EDT PCP: Nubia Botello APRN SUBJECTIVE: 50 y.o. female presents for annual exam and to discuss her concerns today. Sleep apnea- she reports that she has been having difficulty with staying awake when she drives. She has been falling asleep at work as well. 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 She was diagnosed with sleep apneaand offered machine but did not use it. She reports her previous testing was done years ago and not through [facility]. She reports that the daily fatigue is getting worse. Back pain- she still as persistent back pain with radiation down her legs. She has difficult time getting out of the car. She has had times when her ankles feel weak and she feels that her ankles aregiving out. She does not feel that the Cymbalta or the gabapentin are helping that much. Pain radiates down both legs at times, most often pain is down the right leg. Fibromalgia- chronic pain, she does not feel any of medications are helping. She is having difficulty getting comfortable. She reports that she has a lot of arthralgia and feels that all of her joints hurt. They are not red and swollen. Diabetes- has been taking metformin. Due for A1c check today. Fatigue- she reports that she is always tired. Urinary incontinence- difficulty making it to the bathroom in time. Rectal bleeding- she had colonoscopy, polyp removed at that time. Purpura- has noticed in last 4-5 months, wondering if it is related to gabapentin, is not as bad today. Patient Active Problem List Diagnosis Code ??? Depression F32.9 ??? Irritable bowel syndrome K58.9 ??? GERD (gastroesophageal reflux disease) K21.9 ??? Peptic ulcer disease K27.9 ??? Migraines G43.909 ??? Elevated blood pressure [id number] ??? Body mass index (BMI) of 39.0-39.9 in adult Z68.39 ??? Low back pain M54.5 ??? Type 2 diabetes mellitus without complication, without long-term current use of insulin E11.9 ??? Fatigue R53.83 DIET- she reports that she does not eat a lot EXERCISE- no regular exercise LIPID SCREENING- Lipid Panel Lab Results Component Value Date CHLPL 186 12/22/2015 HDL 30 (L) 12/22/2015 CHOLHDL 6.2 12/22/2015 TRIG 551 (H) 12/22/2015 LDLCHOL Not Calculated 12/22/2015 LDLDIRECT 102 (H) 12/22/2015 COLONOSCOPY- UTD PAP SMEAR- n/a BREAST CANCER SCREENING- discuss at age 52 TDAP-is up to date FLU- recommended and UTD SHINGLES- due at age 62 PNEUMOCOCCAL- due, will discuss at next visit. Allergies Allergen Reactions ??? Latex Skin [...] Tobacco ??? Never Used myD-H Primary Care 11/26/2016 PROMIS 10-Health in general Fair PROMIS 10-Quality of life Fair PROMIS 10-Physical health Fair PROMIS 10-Mental health Good PROMIS 10-Satisfaction with social activities Very Good PROMIS 10-Ability to carry out social activities Fair PROMIS 10-Ability to carry out physical activities Moderately PROMIS 10-Bothered by emotional problems Rarely PROMIS 10-Rate of fatigue Very Severe PROMIS 10-Rate of pain 8 PROMIS 10- Physical Health Score 29.6 PROMIS 10- Mental Health Score 45.8 REVIEW OF SYSTEMS 11/26/2016 Constitutional Weakness, Fatigue, lack of energy, Drowsiness, Pain Ear / nose / throat / mouth Dry mouth, Difficulty swallowing, Hoarseness Eyes Blurry vision Respiratory Wheezing, Cough, Shortness of breath Cardiovascular Swelling of legs Gastrointestinal Trouble swallowing, Blood in stools, Heartburn, indigestion, Diarrhea Skin, hair Dry skin Musculoskeletal Joint stiffness, Back pain, Joint pain, Muscle stiffness, Unable to walk/difficultywalking, Other symptoms with joints or muscles Neurological Balance difficulty, dizziness, Headaches, Muscular weakness Hematologic / Lymphatic None of the above Genitourinary Frequent urination, Urinary incontinence PC Q - ADLS/IADLS/FALL 04/21/2013 Activity - low level (Bathing, Dressing, Eating, Mobility, Using toilet, Grooming) Getting in or out of chairs, Walking ADLS Help I could use a little more help Activity - high level (Laundry, Housekeeping, Banking, Shopping, Use phone, Food Prep, Transportation, Taking meds) No, I do not have difficulty with these activities Fallen in last year No Difficulties with balance or walking Yes Breast Cancer Risk (HUSSEIN) Scores 11/24/2015 Lifetime Risk of Patient 8.4 Average Lifetime Risk 11.6 5-Year Risk of Patient 0.8 Average 5-Year Risk 1.1 Recommend Genetic Risk Assessment w/B-RST 0 (If meets USPSTF BRCA testing guideline) PHQ-9 QUESTIONNAIRE (AMB) 11/26/2016 PHQ - 9 Score (Patient) 10 (Moderate Depression) Little interest or pleasure (Patient) Several days Down, depressed, hopeless (Patient) Not at all Trouble sleeping (Patient) Nearly every day Tired or no energy (Patient) Nearly every day Poor appetite or overeating (Patient) Several days Feeling like a failure (Patient) Not at all Trouble concentrating (Patient) Several days Moving or speaking slowly (Patient) Several days Would be better off (Patient) Not at all Physical Exam: Vitals: 11/26/16 0925 BP: 157/84 Pulse: 89 SpO2: 96% Weight: (!) 107 kg (236 lb) Height: 159.8 cm (5' 2.9) Physical Exam Constitutional: She is oriented to person, place, and time. She appears well- developed and well-nourished. HENT: Head: Normocephalic and atraumatic. Right Ear: Tympanic membrane, external ear and ear canal normal. Left Ear: Tympanic membrane, external ear and ear canal normal. Mouth/Throat: Oropharynx is clear and moist. Eyes: Conjunctivae are normal. Pupils are equal, round, and reactive to light. Right eye exhibits no discharge. Left eye exhibits no discharge. Neck: Normal range of motion. Neck supple. No thyromegaly present. Cardiovascular: Normal rate, regular rhythm and normal heart sounds. Exam reveals no friction rub. No murmur heard. Pulmonary/Chest: Effort normal and breath sounds normal. She has no wheezes. She has no rales. She exhibits no tenderness. Abdominal: Soft. Bowel sounds are normal. She exhibits no distension and no mass. There is no tenderness. There is no rebound and no guarding. Musculoskeletal: Normal range of motion. Lymphadenopathy: She has no cervical adenopathy. Neurological: She is alert and oriented to person, place, and time. She displays normal reflexes. No cranial nerve deficit. Coordination normal. Skin: Skin is warm and dry. No rash noted. Multiple distinct 1 mm macular ecchymotic lesions on feet bilaterally. No surrounding erythema. Psychiatric: She has a normal mood and affect. Her behavior is normal. Judgment and thought contentnormal. Body mass index is 41.94 kg/(m^2). Assessment/Plan: Nancy was seen today for annual exam. Diagnoses and all orders for this visit: Health care maintenance - due for recheck of A1c today, she is at risk for cardiovascular disease with diabetes, discussed importance of low impact exercise and diet - patient has chronic back and radiculopathy. 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 Note written for her to limit lifting to less than 20 lbs. - Sleep Apnea, suspected - do not have old reports to confirm diagnosis, but she has BMI greater than 30, and daytime fatigue. She has overnight oximetry that showed desaturations as low as 80%. Will start her on home oxygenand refer her back to sleep medicine for evaluation - discussed the importance of getting a CPAP and using it. Discussed cardiac risks with untreated sleep apnea. Type 2 diabetes mellitus without complication, without long-term current use of insulin - Comprehensive metabolic panel (non-fasting); Future - Hemoglobin A1c; Future - Comprehensive metabolic panel (non-fasting) - Hemoglobin A1c Arthralgia, unspecified joint - Fibromyalgia now with worsening arthralgia will refer to rheum for further evaluation - Sedimentation rate; Future - CRP, acute inflammation; Future - Sedimentation rate - CRP, acute inflammation Fatigue, unspecified type - CBC (with Diff); Future - TSH; Future - CBC (with Diff) - TSH - Hemogram - Differential, Automated Purpura- Is listed as possible side effect of gabapentin. Will check CBC today. Continue on currentdose of gabapentin. - f/u in two weeks documented in this encounter Plan of Treatment Scheduled Referrals Name Type Priority Associated Diagnoses Orde r Schedule Referral to Sleep Disorders Center Outpatient Referral Routine Suspected sleep apnea Nocturnal oxygen desaturation Ordered: 11/28/2016 Referral to Rheumatology Outpatient Referral Routine Arthralgia, unspecified joint Fibromyalgia Ordered: 11/28/2016 documented as of this encounter Procedures Procedure Name Priority Date/Time Associated Diagnosis Comments CRP, ACUTE INFLAMMATION Routine 11/26/2016 10:55 AM EDT Arthralgia, unspecified joint HEMOGRAM Routine 11/26/2016 10:55 AM EDT Fatigue, unspecified type DIFFERENTIAL, AUTOMATED Routine 11/26/2016 10:55 AM EDT Fatigue, unspecified type SEDIMENTATION RATE Routine 11/26/2016 10 :55 AM EDT Arthralgia, unspecified joint CBC (WITH DIFF) Routine 11/26/2016 10:55 AM EDT Fatigue, unspecified type TSH Routine 11/26/2016 10:55 AM EDT Fatigue, unspecified type HEMOGLOBIN A1C Routine 11/26/2016 10:55 AM EDT Type 2 diabetes mellitus without complication, without long-term current use of insulin COMPREHENSIVE METABOLIC PANEL Routine 11/26/2016 10:55 AM EDT Type 2 diabetes mellitus without complication, without long-term current use of insulin documented in this encounter Results * (ABNORMAL) Differential, Automated (11/26/2016 10:55 AM EDT) Neutrophil % 50.6 % [facility] Neutrophil Absolute 5.61 1.70 - 6.10 x10(3)/mc L [facility] Lymph % 38.9 % [facility] Lymphocytes Abs 4.3(H) 0.9 - 3.2 x10(3)/ L [facility] Monocyte % 6.1 % [facility] Monocyte Abs 0.7 0.3 - 0.9 x10(3)/[facility] Eos % 2.7 % [facility] Eosinophils Abs 0.3 0.0 - 0.4 x10(3)/[facility] Basophil % 1.0 % [facility] Baso Absolute 0.1 0.0 - 0.1 x10(3)/[facility] Immature Gran % 0.70 % [facility] Comment: Immature granulocytes(IG's)percentage and absolute count will include metamyelocytes, myelocytes, and promyelocytes. Blood smears from CBCs yielding IG's will be scanned manually for concordance. If this scan disagrees with the automated IG or if promyelocytes are noted, a manual differential will be performed. Immature Gran Absolute 0.08(H) 0.00 - 0.04 x10(3)/[facility] Blood specimen (specimen) 11/26/2016 10:55 AM EDT 11/26/2016 6:25 PM EDT Narrative Resulting Agency Comment Spec In Lab Nubia Botello WELDING MACHINE OPERATOR [employer] HEMATOLOGY ORDER RODNEY [facility] [place] [address] * (ABNORMAL) Hemogram (11/26/2016 10:55 AM EDT) White Blood Cell 11.1(H) 4.0 - 9.5 x10(3)/[facility] Red Blood Cell 5.44(H) 4.00 - 5.21 x10(6)/[facility] Hemoglobin 15.8(H) 11.7 - 15.5 gm/dL [facility] Hematocrit 46.3(H) 35.7 - 45.8 % [facility] Mean Cell Volume 85.1 82.6 - 94.4 fL [facility] Mean Cell Hemoglobin 29.0 27.1 - 32.0 pg [facility] Mean Cell Hemoglobin Concentration 34.1 31.7 - 35.0 gm/dL [facility] Platelet 303 145 - 357 x10(3)/mc L [facility] RDW Standard Deviation 41.1 37.0 - 46.0 fL [facility] RDW coefficient of variation 13.3 11.5 - 14.1 % [facility] Mean Platelet Volume 10.3 7.6 - 12.9 fL [facility] NRBC% auto 0.0 % [facility] NRBC Absolute 0.000 0.000 - 0.000 x10(3)/mc L [facility] Blood specimen (specimen) 11/26/2016 10:55 AM EDT 11/26/2016 6:25 PM EDT Narrative Resulting Agency Comment Spec In Lab Nubia Botello APRN HEMATOLOGY ORDER RODNEY Performing Organization Address City/[facility]/ZIP Co de Phone Number [facility] [place] [address] * TSH (11/26/2016 10:55 AM EDT) Thyroid Stimulating Hormone 1.90 0.27 - 4.20 mlU/ML [facility] Blood specimen (specimen) 11/26/2016 10:55 AM EDT 11/26/2016 6:34 PM EDT Narrative Resulting Agency Comment Spec In Lab Nubia Botello APRN CHEMISTRY ORDERA BLES [facility] [place] [address] * (ABNORMAL) Hemoglobin A1c (11/26/2016 10:55 AM EDT) Hemoglobin A1c 8.2(H) 4.3 - 5.6 % [facility] Comment: Reference Range: 4.3 - 5.6% 5.7 - 6.4% - Increased Risk of Developing Diabetes Mellitus >=6.5% - Consistent with diagnosis of Diabetes Mellitus In the absence of hyperglycemia (i.e. plasma glucose > 200 mg/dL) or classic symptoms of hyperglycemia a repeat measurement of HbA1c should be performed on a separate sample to confirm the diagnosis. Diagnosis and Classification of Diabetes Mellitus, Diabetes Care 2013; 36: Suppl. 1, S67-45 Estimated Average Glucose 189 mg/dL [facility] Comment: eAG equivalents for HbA1c percentages: HbA1c(%) ?eAG(mg/dL) 6.0 ?126 6.5 ?140 7.0 ?154 7.5 ?169 8.0 ?183 8.5 ?197 9.0 ?212 9.5 ?226 10.0 ? 240 Limitations: The eAG calculation has not been validated on women, individuals below 18 years old and above 70 years old, and individuals with hemoglobinopathies. Additional resources are available on the ADA website. José AGUILERA, Sidney J, Kathi R, et al. ??Translating the A1C assay into estimated average glucose values. ??Diabetes Care 2008:31(8):2556-8646. Blood specimen (specimen) 11/26/2016 10:55 AM EDT 11/26/2016 6:25 PM EDT Narrative Resulting Agency Comment Spec In Lab Nubia Botello APRN CHEMISTRY ORDERA BLES Performing Organization Address City/State/[facility] Co de Phone Number [facility] [place] [address] * (ABNORMAL) CRP, acute inflammation (11/26/2016 10:55 AM EDT) Pathologist [facility] C-Reactive Protein 32.4(H) <=4.9 mg/L [facility] Comment:rechecked by ga Blood specimen (specimen) 11/26/2016 10:55 AM EDT 11/26/2016 6:34 PM EDT Narrative Resulting Agency Comment Spec In Lab Nubia Botello APRN CHEMISTRY ORDERA BLES Performing Organization Address [facility] Co de Phone Number [facility] [place] [address] * Sedimentation rate (11/26/2016 10:55 AM EDT) [facility] Sedimentation Rate Automated 16 0 - 20 mm/hr [facility] Blood specimen (specimen) 11/26/2016 10:55 AM EDT 11/26/2016 6:25 PM EDT Narrative Resulting Agency Comment Spec In Lab Nubia Botello APRN HEMATOLOGY ORDER RODNEY Performing Organization Address [facility] Co de Phone Number [facility] [place] [address] * (ABNORMAL) Comprehensive metabolic panel (non-fasting) (11/26/2016 10:55 AM EDT) Pathologist [facility] Glucose 144 65 - 199 mg/dL [facility] Comment:Diabetes: >=200 mg/d L plus symptoms Blood Urea Nitrogen 14 8 - 18 mg/dL [facility] Creatinine 0.86 0.70 - 1.20 mg/dL [facility] Comment: Please note that the pediatric reference intervals supplied above were not validated at [facility]. Results from pediatric patients should be interpreted in conjunction to the patient's age, height and muscle mass. Sodium 139 135 - 145 mmol/L [facility] Potassium 3.8 3.5 - 5.0 mmol/L [facility] Comment: Please note: ??Patients with WBC >100,000 may have falsely elevated Potassium levels. ??For accurate Potassium quantification in these patients send serum separator tube (gold top) for subsequent determinations. ??Contact the Clinical Chemistry Laboratory if there are any questions. Chloride 94(L) 98 - 107 mmol/L [facility] Carbon Dioxide 30 22 - 31 mmol/L [facility] Anion Gap 15 5 - 15 mmol/L [facility] Calcium 9.5 8.5 - 10.5 mg/dL [facility] Protein, Total 7.8 6.1 - 8.0 gm/dL [facility] Albumin 4.0 3.2 - 5.2 gm/dL [facility] Aspartate Aminotransferase 64(H) 0 - 30 unit/L [facility] Alanine Aminotransferase 45(H) 0 - 30 unit/L [facility] Alkaline Phosphatase 137(H) 40 - 104 unit/L [facility] Bilirubin, Total 0.5 0.2 - 1.3 mg/dL [facility] Bilirubin, Direct 0.1 0.0 - 0.3 mg/dL [facility] Est Glomerular Filtration [...] the following links into your internet browser. [email or web address] Blood specimen (specimen) 11/26/2016 10:55 AM EDT 11/26/2016 6:34 PM EDT Narrative Resulting Agency Comment Spec In Lab Nubia Botello APRN CHEMISTRY LORI RICE [facility] [place] [address] documented in this encounter Visit Diagnoses Diagnosis Health care maintenance- Primary Unspecified general medical examination Type 2 diabetes mellitus without complication, without long-term current use of insulin Arthralgia, unspecified joint Fatigue, unspecified type Suspected sleep apnea Nocturnal oxygen desaturation Idiopathic sleep related nonobstructive alveolar hypoventilation Fibromyalgia Mylagia and myositis, unspecified documented in this encounter Care Teams Solar Process Engineer Relationship Specialty Start Date End Date Nubia Botello, GARY [facility] [address] [place] [address] PCP - General 01/16/14 01/28/19 documented as of this encounter
--- OUTSIDE RECORDS SUMMARY | 2024-04-03 16:06 | XMS_ITS | Encounter Summary ---
Author Organization [facility] [place] [address] Care Team Providers Care Energy Efficiency Finance Manager Name Role Phone RosmeryNubia ferreira John VEGA Primary Care Provider + Reason for Visit * Reason Onset Date Comments Medical Care Coordination 01/28/2015 Encounter Details Date Type Department Care Team (Late st Contact Info) Description 01/28/2015 Telephone Internal Medicine at [address] [address] [place] [address] Medical Care Coordination Social History Tobacco Use Types Packs/Day Years [...] encounter Miscellaneous Notes * Telephone Encounter - Lisandra Martinez RN - 01/28/2015 12:47 PM EDT Care Coordination Note - [facility] [place] Transition of Care call to patient to f/u on ED visit 01/25 for left shoulder pain. She reports today that her shoulder is still bothering her. She is driving right now and will call back later to schedule an appointment to be seen at the [facility] to further workup causes/treatments. documented in this encounter Plan of Treatment Not on file documented as of this encounter Visit Diagnoses Not on filedocumented in this encounter Care Teams Energy Efficiency Finance Manager Relationship Specialty Start Date End Date Nubia Botello APRN [facility] [place] [address] PCP - General 01/16/14 01/28/19 documented as of this encounter
--- OUTSIDE RECORDS SUMMARY | 2024-04-03 16:06 | XMS_ITS | Encounter Summary ---
Author Organization [facility] [place] [address] Care Team Providers Care Gas Station Manager Name Role Phone Nubia Botello APRN Primary Care Provider + Reason for Referral * Consultation (Urgent) - Closed Specialty Diagnoses / Procedures Referred By Dennis daniels Referred To Contact Gastroenterology Diagnoses BRBPR (bright red blood per rectum) Nubia Botello SOURCING ENGINEER [facility] [place] [address] [facility] [address] [place] [id number] Referral ID Status Reason Start Date Expiration Date V isits Requested Visits Authorized [id number] Closed Consult, Test & Treat 03/19/2016 03/19/2017 1 1 Reason for Visit * Reason Onset Date Comments Other 03/16/2016 returning your c all Encounter Details Date Type Department Care Team (Late st Contact Info) Description 03/16/2016 Telephone Internal Medicine at [address] [address] Nubia Botello [facility] [address] [place] [address] Other (returning your call) Social History Tobacco Use Types Packs/Day Years [...] Telephone Encounter - Nubia Botello APRN - 03/19/2016 2:25 PM EDT Called patient, still having rectal bleeding, same amount but not as frequently. - sciatica is really bothering her taking tylenol and ibuprofen. Had held on prednisone because shewas having bleeding. Blood is bright red. Will do 5 days prednisone, patient to hold ibuprofen while on prednisone. Discussed risk of bleeding. - colonoscopy referral changed to urgent given bleeding and changes on CT of abdomen. * Telephone Encounter - Viky Robbins - 03/16/2016 3:55 PM EDT Nancy returned your call. She would like you to call her back on Saturday at the home number. Viky * Telephone Encounter - Nubia Botello APRN - 03/16/2016 2:55 PM EDT Called patient to discuss lab results. No answer, message left. Wanted to let her know results and that I want to do colonoscopy for further evaluation. Message left for her to call back. documented in this encounter Plan of Treatment Scheduled Referrals Name Type Priority Associated Diagnoses Order Schedule Referral to Gastroenterology Outpatient Referral Routine BRBPR (bright red blood per rectum) Ordered: 03/19/2016 documented as of this encounter Visit Diagnoses Diagnosis BRBPR (bright red blood per rectum)- Primary Hemorrhage of rectum and anus documented in this encounter Care Teams Gas Station Manager Relationship Specialty Start Date End Date Nubia Botello APRN [facility] [address] DASILVA INTERNAL [facility] [place] [address] PCP - General 01/16/14 01/28/19 documented as of this encounter
--- OUTSIDE RECORDS SUMMARY | 2024-04-03 16:06 | XMS_ITS | Encounter Summary ---
Author Organization [facility] [place] [address] Care Team Providers Care Electronics Manufacturer Name Role Phone Nubia Conley APRN Primary Care Provider + Reason for Visit * Reason Comments Follow-up med follow up, pharm acy rejected cymbalta; change in gabapentin Rx and nortriptyline; needs refills; this combo of Rx is not helping Encounter Details Date Type Department Care Team (Late st Contact Info) Description 01/16/2016 9:00 AM EDT Office Visit Internal Medicine at [address] [address] Nubia Conley APRN [facility] [place] [address] Fibromyalgia; Other chronic pain; Arthralgia, unspecified joint; Cigar smoker; Elevated fasting glucose Social History Tobacco Use Types Packs/Day Years [...] Sign Reading Time Taken Comments Blood Pressure 132/68 01/16/2016 8:44 AM EDT Pulse 95 01/16/2016 8:44 AM EDT Temperature 36.8 ??C (98.2 ??F) 01/16/2016 8:44 AM ED T Respiratory Rate 12 01/16/2016 8:44 AM EDT Oxygen Saturation 100% 01/16/2016 8:44 AM EDT Inhaled Oxygen Concentration - - Weight 102.3 kg (225 lb 9.6 oz) 01/16/2016 8:44 AM EDT Height - - Body Mass Index 40.07 12/22/2015 8:50 AM EDT documented in this encounter Progress Notes * Nubia Conley APRN - 01/16/2016 9:00 AM EDT PCP: NUBIA CONLEY APRN Chief Complaint Patient presents with ??? Follow-up med follow up, pharmacy rejected cymbalta; change in gabapentin Rx and nortriptyline; needs refills; this combo of Rx is not helping SUBJECTIVE: Nancy Diego is a 50 y.o. female who presents for the chronic pain. She feels that the medication is giving her the side effects. She is not finding a happy medium. She is taking the gabapentin. She will take the tylenol and ibuprofen and that it not taking away the pain. - She will take the gabapentin at 6 and 2. She will take ibuprofen around 6 or 7 pm. She will take gabapentin at 11 pm. She says that by then she has a lot of pain and it feels discomfort and it hurts to - gabapentin does help with the pain, but the higher doses are making her feel groggy. - She says that her knees hurt bad. Her feet will swell and ankles will hurt. - It hurts when she is at home and at work. Review of Systems Constitutional: Positive for fatigue. Negative for chills and fever. Respiratory: Positive for shortness of breath (with pain only). Endocrine: Positive for polydipsia (dry mouth with medications) and polyuria. Musculoskeletal: Positive for arthralgias, back pain, myalgias and neck pain. Skin: Negative for rash. Neurological: Positive for dizziness (with medications), weakness, light- headedness (with gabapentin) and headaches. Negative for syncope. Psychiatric/Behavioral: Positive for sleep disturbance. Allergies Allergen Reactions ??? Latex Skin cracks and bleeds ??? Penicillins Rash Current Outpatient Prescriptions Medication Sig Dispense Refill ??? gabapentin (NEURONTIN) 300 mg Capsule Take 1 capsule twice daily and 2 capsules at bedtime 90 capsule 3 ??? nortriptyline (PAMELOR) 25 mg Capsule Take 1 capsule by mouth nightly. 30 capsule 12 ??? hydrochlorothiazide (HYDRODIURIL) 25 mg Tablet [...] mouth every 6 hours as needed. ??? DULoxetine (CYMBALTA) 60 mg Capsule, Delayed Release(E.C.) Take 1 capsule by mouth daily. (Patient not taking: Reported on 01/16/2016) 90 tablet 3 No current facility-administered medications for this visit. Patient Active Problem List Diagnosis Code ??? Depression F32.9 ??? Irritable bowel syndrome K58.9 ??? GERD (gastroesophageal reflux disease) K21.9 ??? Peptic ulcer disease K27.9 ??? Migraines G43.909 ??? Elevated blood pressure I10 ??? Body mass index (BMI) of 39.0-39.9 in adult Z68.39 ??? Low back pain M54.5 OBJECTIVE: Vitals: 01/16/16 0844 BP: 132/68 BP Location (NBP): Left arm Patient Position: Sitting BP Cuff Sizes: Adult (25-34 cm) Pulse: 95 Resp: 12 Temp: 36.8 ??C (98.2 ??F) TempSrc: Oral SpO2: 100% Weight: (!) 102.3 kg (225 lb 9.6 oz) PHYSICAL EXAM: Physical Exam Constitutional: She is oriented to person, place, and time. She appears well- developed and well-nourished. She appears distressed (pain). HENT: Head: Normocephalic and atraumatic. Eyes: Conjunctivae are normal. No scleral icterus. Pulmonary/Chest: Effort normal. Musculoskeletal: Tenderness with palpation of muscles on her back arms ad legs. Neurological: She is alert and oriented to person, place, and time. Skin: Skin is warm and dry. Psychiatric: She has a normal mood and affect. Her behavior is normal. Judgment and thought contentnormal. ASSESSMENT & PLAN: Nancy was seen today for follow-up . Diagnoses and all orders for this visit: Fibromyalgia - gabapentin (NEURONTIN) 300 mg Capsule; Take 1 capsule twice daily and 2 capsules at bedtime - will continue with gabapentin. Cannot go any higher on dose as she is having a lot of dry mouth and feels groggy. - will try cymbalta again. - will do labs to look for other cause of pain. Other chronic pain - CBC (with Diff); Future - High Sensitivity CRP; Future - Sedimentation rate; Future - Lyme IgG & IgM Antibody; Future - Cyclic Citrullinated Peptide; Future - TSH; Future - Comprehensive metabolic panel (non-fasting); Future - CBC (with Diff) - High Sensitivity CRP - Sedimentation rate - Lyme IgG & IgM Antibody - Cyclic Citrullinated Peptide - TSH - Comprehensive metabolic panel (non-fasting) - Hemogram - Differential, Automated Arthralgia, unspecified joint - High Sensitivity CRP; Future - Sedimentation rate; Future - Lyme IgG & IgM Antibody; Future - Cyclic Citrullinated Peptide; Future - TSH; Future - Comprehensive metabolic panel (non-fasting); Future - High Sensitivity CRP - Sedimentation rate - Lyme IgG & IgM Antibody - Cyclic Citrullinated Peptide - TSH - Comprehensive metabolic panel (non-fasting) Cigar smoker - XR Chest PA & Lateral (Generic); Future Elevated fasting glucose - POCT glycated hemoglobin, total (HA1C) Other orders - CK documented in this encounter Plan of Treatment Not on file documented as of this encounter Procedures Procedure Name Priority Date/Time Associated Diagnosis Comments LYME IGG & IGM ANTIBODY Routine 01/16/2016 10:18 AM EDT Other chronic pain Arthralgia, unspecified joint ANTI-CYCLIC CITRULLINATED PEPTIDE AB Routine 01/16/2016 10:18 AM EDT Other chronic pain Arthralgia, unspecified joint HEMOGRAM Routine 01/16/2016 10:18 AM EDT Other chronic pain DIFFERENTIAL, AUTOMATED Routine 01/16/2016 10:18 AM EDT Other chronic pain SEDIMENTATION RATE Routine 01/16/2016 10 :18 AM EDT Other chronic pain Arthralgia, unspecified joint CBC (WITH DIFF) Routine 01/16/2016 10:18 AM EDT Other chronic pain CRP, CARDIAC RISK (HS CRP) Routine 01/16/2016 10:18 AM EDT Other chronic pain Arthralgia, unspecified joint TSH Routine 01/16/2016 10:18 AM EDT Other chronic pain Arthralgia, unspecified joint CK Routine 01/16/2016 10:18 AM EDT COMPREHENSIVE METABOLIC PANEL Routine 01/16/2016 10:18 AM EDT Other chronic pain Arthralgia, unspecified joint POCT GLYCATED HEMOGLOBIN, TOTAL (HA1C) Routine 01/16/2016 10:01 AM EDT Elevated fasting glucose documented in this encounter Results * CK (01/16/2016 10:18 AM EDT) Pathologist [facility] Creatine Kinase 67 0 - 160 unit/L [facility] Blood specimen (specimen) Venous Draw / Unknown 01/16/2016 10:18 AM EDT 01/16/2016 12:13 PM EDT Narrative Resulting Agency Comment Spec In Lab Consuelo Dominguez MD CHEMISTRY ORDERAB LES [facility] [place] [address] * (ABNORMAL) Differential, Automated (01/16/2016 10:18 AM EDT) Pathologist [facility] Neutrophil % 55.6 % [facility] Neutrophil Absolute 6.00 1.50 - 6.30 x10(3)/mc L [facility] Lymph % 34.8 % [facility] Lymphocytes Abs 3.8(H) 1.0 - 3.6 x10(3)/[facility] Monocyte % 6.3 % [facility] Monocyte Abs 0.7 0.2 - 1.0 x10(3)/[facility] Eos % 2.2 % [facility] Eosinophils Abs 0.2 0.0 - 0.5 x10(3)/[facility] Basophil % 0.4 % [facility] Baso Absolute 0.0 0.0 - 0.2 x10(3)/[facility] Immature Gran % 0.70 % [facility] Comment: Immature granulocytes(IG's)percentage and absolute count will include metamyelocytes, myelocytes, and promyelocytes. Blood smears from CBCs yielding IG's will be scanned manually for concordance. If this scan disagrees with the automated IG or if promyelocytes are noted, a manual differential will be performed. Immature Gran Absolute 0.08(H) 0.00 - 0.05 x10(3)/[facility] Blood specimen (specimen) 01/16/2016 10:18 AM EDT 01/16/2016 12:07 PM EDT Narrative Resulting Agency Comment Spec In Lab Consuelo Dominguez MD HEMATOLOGY ORDERA BLES Performing Organization Address City/State/[facility] Co de Phone Number [facility] [place] [address] * (ABNORMAL) Hemogram (01/16/2016 10:18 AM EDT) White Blood Cell 10.8(H) 4.0 - 10.0 x10(3)/[facility] Red Blood Cell 5.00 3.93 - 5.22 x10(6)/[facility] Hemoglobin 15.0 11.2 - 15.7 gm/dL [facility] Hematocrit 44.0 34.0 - 45.0 % [facility] Mean Cell Volume 88.0 79.0 - 94.[address] [facility] Mean Cell Hemoglobin 30.0 26.6 - 32.[address] [facility] Mean Cell Hemoglobin Concentration 34.1 32.0 - 36.5 gm/dL [facility] Platelet 301 145 - 370 x10(3)/mc L [facility] RDW Standard Deviation 42.0 35.0 - 46.[address] [facility] RDW coefficient of variation 13.2 10.9 - 14.4 % [facility] Mean Platelet Volume 10.3 9.0 - 12.[address] [facility] Blood specimen (specimen) 01/16/2016 10:18 AM EDT 01/16/2016 12:07 PM EDT Narrative Resulting Agency Comment Spec In Lab Consuelo Dominguez MD HEMATOLOGY ORDERA BLES Performing Organization Address City/State/[facility] Co de Phone Number [facility] [place] [address] * (ABNORMAL) Comprehensive metabolic panel (non-fasting) (01/16/2016 10:18 AM EDT) Glucose 115 65 - 199 mg/dL [facility] Comment:Diabetes: >=200 mg/d L plus symptoms Blood Urea Nitrogen 14 8 - 18 mg/dL [facility] Creatinine 0.80 0.70 - 1.20 mg/dL [facility] Comment: Please note that the pediatric reference intervals supplied above were not validated [place] [facility] [place] Results from pediatric patients should be interpreted in conjunction to the patient's age, height and muscle mass. Sodium 141 135 - 145 mmol/L [facility] Potassium 3.5 3.5 - 5.0 mmol/L [facility] Comment: Please note: ??Patients with WBC >100,000 may have falsely elevated Potassium levels. ??For accurate Potassium quantification in these patients send serum separator tube (gold top) for subsequent determinations. ??Contact the Clinical Chemistry Laboratory if there are any questions. Chloride 98 98 - 107 mmol/L [facility] Carbon Dioxide 27 22 - 31 mmol/L [facility] Anion Gap 16(H) 5 - 15 mmol/L [facility] Calcium 9.1 8.5 - 10.5 mg/dL [facility] Protein, Total 7.7 6.1 - 8.0 gm/dL [facility] Albumin 4.2 3.2 - 5.2 gm/dL [facility] Aspartate Aminotransferase 14 0 - 30 unit/L [facility] Alanine Aminotransferase 16 0 - 30 unit/L [facility] Alkaline Phosphatase 130(H) 40 - 104 unit/L [facility] Bilirubin, Total 0.2 0.2 - 1.3 mg/dL [facility] Bilirubin, Direct 0.1 0.0 - 0.3 mg/dL [facility] Est Glomerular Filtration Rate >60 >=60 [facility] Comment: This estimated GFR (eGFR) [...] the following links into your internet browser. [email or web address] Blood specimen (specimen) 01/16/2016 10:18 AM EDT 01/16/2016 12:07 PM EDT Narrative Resulting Agency Comment Spec In Lab Consuelo Dominguez MD CHEMISTRY ORDERAB LES [facility] [place] [address] * TSH (01/16/2016 10:18 AM EDT) Thyroid Stimulating Hormone 2.06 0.27 - 4.20 mcIU/mL [facility] Blood specimen (specimen) 01/16/2016 10:18 AM EDT 01/16/2016 12:07 PM EDT Narrative Resulting Agency Comment Spec In Lab Consuelo Dominguez MD CHEMISTRY ORDERAB LES Performing Organization Address [facility] Co de Phone Number [facility] [place] [address] * Cyclic Citrullinated Peptide (01/16/2016 10:18 AM EDT) Cyclic Citrulline Peptide <8.0 <=17.0 unit/mL [facility] Blood specimen (specimen) 01/16/2016 10:18 AM EDT 01/16/2016 12:07 PM EDT Narrative Resulting Agency Comment Spec In Lab Consuelo Dominguez MD CHEMISTRY ORDERAB LES Performing Organization Address [facility] Co de Phone Number [facility] [place] [address] * Lyme IgG & IgM Antibody (01/16/2016 10:18 AM EDT) Lyme Antibody Neg Neg [facility] Blood specimen (specimen) 01/16/2016 10:18 AM EDT 01/17/2016 6:59 AM EDT Narrative Resulting Agency Comment Spec In Lab Consuelo Dominguez MD IMMUNOLOGY ORDERA BLES Performing Organization Address [facility] Co de Phone Number [facility] [place] [address] * (ABNORMAL) Sedimentation rate (01/16/2016 10:18 AM EDT) Sedimentation Rate Automated 30(H) 0 - 20 mm/hr [facility] Blood specimen (specimen) 01/16/2016 10:18 AM EDT 01/16/2016 12:07 PM EDT Narrative Resulting Agency Comment Spec In Lab Consuelo Dominguez MD HEMATOLOGY ORDERA BLES Performing Organization Address [facility]/ZIP Co de Phone Number [facility] [place] [address] * High Sensitivity CRP (01/16/2016 10:18 AM EDT) C-Reactive Protein High Sensitivity 33.7 mg/L [facility] Comment: Interpretations: 1) For accurate cardiac risk assessment, the average of 2 values >2 weeks apart should be obtained (ref 1&2). A value >10 mg/L indicates an inflammatory condition, concentrations >10 mg/L should not be used for cardiac risk assessment. ?<1.0 mg/L: low risk ?1.0 - 3.0 mg/L: moderate risk ?>3.0 mg/L: high risk groups for future cardiovascular events 2) The general reference range of apparently healthy individuals using this test is <5.0 mg/L (derived from the test package insert) References: 1. French FOFANA et. al. ??AHA/CDC Scientific Statement: Markers of Inflammation and Cardiovascular Disease. ??Circulation 2003; 107:499-511 2. Ridker PM. ??Clinical applications of C-reactive protein for cardiovascular disease detection and prevention. ??Circulation 2003; 107:363-369 Blood specimen (specimen) 01/16/2016 10:18 AM EDT 01/16/2016 12:07 PM EDT Narrative Resulting Agency Comment Spec In Lab Consuelo Dominguez MD CHEMISTRY ORDERAB LES Performing Organization Address [facility]/ZIP Co de Phone Number [facility] [place] [address] * (ABNORMAL) POCT glycated hemoglobin, total (HA1C) (01/16/2016 10:01 AM EDT) Hemoglobin A1C, POC 6.5(A) 4.3 - 5.6 % 01/16/2016 10:0 1 AM EDT Consuelo Dominguez MD POINT OF CARE LUPILLO T ORDERABLES documented in this encounter Visit Diagnoses Diagnosis Fibromyalgia Mylagia and myositis, unspecified Other chronic pain Arthralgia, unspecified joint Cigar smoker Tobacco use disorder Elevated fasting glucose Impaired fasting glucose documented in this encounter Care Teams Electronics Manufacturer Relationship Specialty Start Date End Date Nubia Conley, BUTTON BROACHER [facility] [address] [facility]AS[facility] [place] [address] PCP - General 01/16/14 01/28/19 documented as of this encounter
--- OUTSIDE RECORDS SUMMARY | 2024-04-03 16:06 | XMS_ITS | Encounter Summary ---
Author Organization [facility] [place] [address] Care Team Providers Care Key Bed Installer Name Role Phone RosmeryNubia ferreira APRN Primary Care Provider + Encounter Details Date Type Department Care Team (Late st Contact Info) Description 06/19/2016 Telephone Internal Medicine at [address] [address] Consuelo Delaney RN Social History [...] Telephone Encounter - Consuelo Delaney RN - 06/19/2016 2:25 PM EST Fibromyalgia pain is leaking through the pain medication she has been given. States it works 50% of the time but randomly. She was awake last night due to pain and hasn't been back to bed, also dueto pain. Pain is all over when it occurs, doesn't seem to matter whether she is working or resting.She called in to work today because she is in so much pain. She is taking the gabapentin and cymbalta as directed. Nubia Botello not in clinic this week. Offered an appt, but she wants to wait to hear from Nubia next week. documented in this encounter Plan of Treatment Not on file documented as of this encounter Visit Diagnoses Not on filedocumented in this encounter Care Teams Key Bed Installer Relationship Specialty Start Date End Date Nubia Botello, [facility] [place] [address] PCP - General 01/16/14 01/28/19 documented as of this encounter
--- OUTSIDE RECORDS SUMMARY | 2024-04-03 16:06 | XMS_ITS | Encounter Summary ---
Author Organization [facility] [place] [address] Care Team Providers Care Rn Acls Name Role Phone Nubia Botello APRN Primary Care Provider + Reason for Referral * Diagnostic Test (Routine) - Closed Specialty Diagnoses / Procedures Referred By Contac t Referred To Contact Radiology Diagnoses Rectal bleed Lower abdominal pain Procedures CT Abdomen & Pelvis w Contrast Nubia Botello APRN [facility] [place] [address] [facility] [place] [address] Referral ID Status Reason Start Date Expiration Date V isits Requested Visits Authorized [id number] Closed Specialty Service Requested 03/13/2016 06/11/2016 1 1 Reason for Visit * Diagnostic Test (Routine) - Closed Specialty Diagnoses / Procedures Referred By Contac t Referred To Contact Radiology Diagnoses Rectal bleed Lower abdominal pain Procedures CT Abdomen & Pelvis w Contrast Nubia Botello [facility] [place] [address] [facility] [place] [address] Referral ID Status Reason Start Date Expiration Date V isits Requested Visits Authorized [id number] Closed Specialty Service Requested 03/13/2016 06/11/2016 1 1 Encounter Details Date Type Department Care Team (Latest Contact Info) Description 03/14/2016 6:37 AM EDT - 03/14/2016 11:59 PM EDT Hospital Encounter CT Scan at [facility] [place] [address] [facility] [place] [address] Rectal bleed; Lower abdominal pain Discharge Disposition: Home Social History Tobacco Use [...] by mouth every 6 hours as needed. gabapentin (NEURONTIN) 300 mg CapsuleIndications:Fi bromyalgia Take [...] 08/12/2014 03/29/2017 documented as of this encounter Miscellaneous Notes * Ancillary Services Notes - Yen Cedillo - 03/14/2016 9:36 AM EDT Images from the original note were not included. You had a CT Scan on 03-14 after 0930 . Per Policy it is important that you stop taking your Metformin (Diabetic Medication) for 2 days following the injection of IV iodinated contrast. You can start taking your Metformin on - after 0930 If you have any questions or concerns, contact your primary care provider. Also drink plenty of water following your CT Scan to help clear the IV Iodinated contrast out of your body. Thank You, [facility] CT Scan Dept documented in this encounter Plan of Treatment Not on file documented as of this encounter Procedures Procedure Name Priority Date/Time Associated Diagnosis Comments CT ABDOMEN AND PELVIS W CONTRAST STAT 03/14/2016 9:47 AM EDT Rectal bleed Lower abdominal pain documented in this encounter Results * CT Abdomen & Pelvis w Contrast (03/14/2016 9:47 AM EDT) Anatomical Region Laterality Modality Abdomen, Pelvis Computed Tomogra phy Impressions 03/14/2016 10:18 AM EDT 1. ??Sigmoid diverticulosis without CT evidence of acute diverticulitis or perforation. Associated colonic wall thickening may be secondary to muscular hypertrophy due to the diverticulosis, however, evaluation for an underlying colonic lesion is limited in this setting. As such, given patient's presenting clinical symptoms, direct visualization is suggested. 2. ??Nonspecific small to borderline-enlarged bilateral common and external iliac lymph nodes. Clinical correlation is needed. 3. ??Mild common bile duct dilatation with trace intrahepatic biliary ductal dilatation. Nonvisualization of the gallbladder, is there a history of prior cholecystectomy, in which case the biliary tree caliber could represent postcholecystectomy changes? If there is no such history, consider MRCP/ERCP for further characterization. 4. ??Mild hepatomegaly with mild hepatic steatosis. Narrative 03/14/2016 10:18 AM EDT EXAMINATION: ??CT ABDOMEN AND PELVIS W CONTRAST CLINICAL HISTORY: ??Patient having abdominal pain and blood in stool for last 5 days. Lower abdominal pain bilaterally to palpation. s/p total hysterectomy 2000. r/o diverticulitis TECHNIQUE: Helical CT of the abdomen and pelvis was performed following the intravenous administration of contrast. 110 cc of Omnipaque 350 was given. ??Oral contrast was administered. Multiplanar reformatted images were also reconstructed. COMPARISON: ??MRI lumbar spine 08/14/2014. FINDINGS: Lung bases: ??Visualized lung bases demonstrate mild dependent atelectasis and otherwise appear clear. Liver: ??Mild hepatomegaly, measuring approximately 21 cm in craniocaudad dimension. No focal lesions identified. Mild diffuse low-attenuation liver, measuring 75 Hounsfield units, compatible with steatosis. Hepatic and portal veins patent. Bile ducts: ??Mildly prominent common bile duct proximally, measuring approximately 8 mm in diameter, tapering more distally at the level of the pancreas. Trace intrahepatic biliary ductal dilatation. Gallbladder: ??Not visualized, query post cholecystectomy. Pancreas: ??Normal. Spleen: ??Normal in size, no focal lesions. Small splenule seen adjacent to the inferior spleen. Adrenals: ??Normal. Kidneys: ??Symmetric bilateral nephrograms, no collecting system dilatation or perinephric stranding. Lymph Nodes: ??Small to borderline-enlarged bilateral common iliac and external iliac lymph nodes, largest measuring approximately 9 mm in short axis in the left common iliac mari distribution, adjacent to the left psoas muscle as seen on series 2, image 57. No pathologically enlarged retroperitoneal, mesenteric, or inguinal lymph nodes. Bowel: Normal caliber. Opacified small bowel loops are unremarkable. Terminal ileum appears normal. Sigmoid diverticulosis is demonstrated. No adjacent inflammatory changes; underlying apparent wall thickening, evaluation limited by lack of luminal contrast distention, may be secondary to underlying diverticulosis. Peritoneum: No ascites or free air, no fluid collection. Vasculature: Nonaneurysmal abdominal aorta. Scattered mild calcified atherosclerosis of the aortoiliac arteries. Origin of the celiac trunk, SMA, and NEGIN are patent. Urinary Bladder: Partially distended and grossly unremarkable. Reproductive organs: Status post hysterectomy. Surgical clips in the left hemipelvis. Skeleton: No suspicious osseous lesions. Procedure Note Adina Reddy MD - 03/14/2016 EXAMINATION: CT ABDOMEN AND PELVIS W CONTRAST CLINICAL HISTORY: Patient having abdominal pain and blood in stool forlast 5 days. Lower abdominal pain bilaterally to palpation. s/p totalhysterectomy 2000. r/o diverticulitis TECHNIQUE: Helical CT of the abdomen and pelvis was performed followingthe intravenous administration of contrast. 110 cc of Omnipaque 350 was given.Oral contrast was administered. Multiplanar reformatted images were also reconstructed. COMPARISON: MRI lumbar spine 08/14/2014. FINDINGS: Lung bases: Visualized lung bases demonstrate mild dependent atelectasisand otherwise appear clear. Liver: Mild hepatomegaly, measuring approximately 21 cm in craniocaudad dimension. No focal lesions identified. Mild diffuse low-attenuationliver, measuring 75 Hounsfield units, compatible with steatosis. Hepatic andportal veins patent. Bile ducts: Mildly prominent common bile duct proximally, measuring approximately 8 mm in diameter, tapering more distally at the level ofthe pancreas. Trace intrahepatic biliary ductal dilatation. Gallbladder: Not visualized, query post cholecystectomy. Pancreas: Normal. Spleen: Normal in size, no focal lesions. Small splenule seen adjacent tothe inferior spleen. Adrenals: Normal. Kidneys: Symmetric bilateral nephrograms, no collecting system dilatationor perinephric stranding. Lymph Nodes: Small to borderline-enlarged bilateral common iliac andexternal iliac lymph nodes, largest measuring approximately 9 mm in short axis inthe left common iliac mari distribution, adjacent to the left psoas muscle asseen on series 2, image 57. No pathologically enlarged retroperitoneal,mesenteric, or inguinal lymph nodes. Bowel: Normal caliber. Opacified small bowel loops are unremarkable.Terminal ileum appears normal. Sigmoid diverticulosis is demonstrated. No adjacent inflammatorychanges; underlying apparent wall thickening, evaluation limited by lack ofluminal contrast distention, may be secondary to underlying diverticulosis. Peritoneum: No ascites or free air, no fluid collection. Vasculature: Nonaneurysmal abdominal aorta. Scattered mild calcified atherosclerosis of the aortoiliac arteries. Origin of the celiac trunk,SMA, and NEGIN are patent. Urinary Bladder: Partially distended and grossly unremarkable. Reproductive organs: Status post hysterectomy. Surgical clips in theleft hemipelvis. Skeleton: No suspicious osseous lesions. IMPRESSION 1. Sigmoid diverticulosis without CT evidence of acute diverticulitisor perforation. Associated colonic wall thickening may be secondary tomuscular hypertrophy due to the diverticulosis, however, evaluation for anunderlying colonic lesion is limited in this setting. As such, given patient'spresenting clinical symptoms, direct visualization is suggested. 2. Nonspecific small to borderline-enlarged bilateral common and externaliliac lymph nodes. Clinical correlation is needed. 3. Mild common bile duct dilatation with trace intrahepatic biliaryductal dilatation. Nonvisualization of the gallbladder, is there a history ofprior cholecystectomy, in which case the biliary tree caliber could represent postcholecystectomy changes? If there is no such history, considerMRCP/ERCP for further characterization. 4. Mild hepatomegaly with mild hepatic steatosis. Katie Ervin MD IMG CT ORDERABLES documented in this encounter Visit Diagnoses Diagnosis Rectal bleed Hemorrhage of rectum and anus Lower abdominal pain Abdominal pain, other specified site documented in this encounter Administered Medications Inactive Administered Medications - up to 3 most recent administrations Medication Order MAR Action Action Date Dose Rate Site iohexol (OMNIPAQUE) 350 mg/mL solution 38,500 mg 38,500 mg (110 mL), Intravenous, ONCE PRN, 1 dose, Starting on Sat03/14/16 at 0935, Until Sat03/14/16 at 0944, Per Protocol, Warning Vesicant/Irritant Medication , Routine Given 03/14/2016 10:00 AM EDT 38,500 mg iohexol (OMNIPAQUE) 350 mg/mL solution 49 mg 49 mg (rounded from 50 mg), Oral, ONCE PRN, 1 dose, Starting on Sat03/14/16 at 0935, Until Sat03/14/16 at 0942, Per Protocol, Warning Vesicant/Irritant Medication , Routine Given 03/14/2016 9:42 AM EDT 49 mg documented in this encounter Care Teams Rn Acls Relationship Specialty Start Date End Date Nubia Botello, [facility] [address] [place] [address] PCP - General 01/16/14 01/28/19 documented as of this encounter
--- OUTSIDE RECORDS SUMMARY | 2024-04-03 16:06 | XMS_ITS | Encounter Summary ---
Author Organization [facility] [place] [address] Care Team Providers Care Engineering Director Name Role Phone Nubia Botello APRN Primary Care Provider + Encounter Details Date Type Department Care Team (Late st Contact Info) Description 01/26/2016 E-Consult Rheumatology at [facility] [place] [address] Adina Atkinson, [facility] [place] [address] CRP elevated; Fibromyalgia Social History Tobacco Use Types Packs/Day [...] Notes * E-Consult - Adina Atkinson, - 01/26/2016 7:49 AM EDT Patient is a 50 year old female with chronic pain which seems to primarily affect her knees, back, neck. She also has difficulty with sleep, symptoms of irritable bowel syndrome and is currently managed with gabapentin and ibuprofen. She has been evaluated with a cbc, cmp, esr, crp, rf ccp, kamlesh, and sjogren's antibodies, and tsh. Her ESR is normal for her age (age/2 +10) and her CRP is 30. She is obese based on BMI. 1. Per report patients symptoms do seem consistent with her diagnosis of fibromyalgia: chronic widespread pain affecting all 4 quadrants, w cognitive dysfunction (memory difficulties/fatigue/fogginess) and poor sleep along with commonly bowel symptoms. She is on gabapentin but is having difficulty t olerating higher doses and her pcm has been unable to get lyrica or cymbalta approved. You can trial pamelor at night and see if this helps with her symptoms. Then go back and request cymbalta or lyrica. But more importantly she needs to start a graded exercise program, and consider cognitive behavioral therapy. Would also consider evaluation for sleep apnea. 2. She is too young for PMR, the age cut off is 50 and it is extremely rare to occur before this age. It is most likely that her elevated CRP is related to her weight, given her negative antibody testing. Other things to consider would be: psoriatic arthritis (does she have any personal or family hx of psoriasis), inflamm bowel disease (blood in her stools, argued against however by her Normal hemoglobin), ankylosing spondylitis (is her back pain inflammatory? Ie: improves with activity, worse with rest, stiffness in the morning >1 hour? And onset of the back pain before age 40). It is unlikely she has sjogrens with a neg KAMLESH, ssa, ssb and rheumatoid factor. If you wanted to be100% certain you could send her for labial gland biopsy (via ENT) but with the negative antibodies I believe this would be low yield. This eConsult is focused on the specific [...] Diagnosis CRP elevated Elevated C-reactive protein (CRP) Fibromyalgia Mylagia and myositis, unspecified documented in this encounter Care Teams Engineering Director Relationship Specialty Start Date End Date Nubia Botello, [facility] [address] [place] [address] PCP - General 01/16/14 01/28/19 documented as of this encounter
--- OUTSIDE RECORDS SUMMARY | 2024-04-03 16:06 | XMS_ITS | Encounter Summary ---
Author Organization [facility] [place] [address] Care Team Providers Care Program Director Name Role Phone Nubia Conley APRN Primary Care Provider + Reason for Visit * Reason Onset Date Comments Prior Authorization 12/22/2015 duloxetine 6 0 mg Encounter Details Date Type Department Care Team (Late st Contact Info) Description 12/22/2015 Telephone Internal Medicine at [address] [address] Bryanna Cortes CCMA Prior Authorization (duloxetine 60 mg) Social History Tobacco Use Types Packs/Day Years [...] encounter Miscellaneous Notes * Addendum Note - Consuelo Delaney RN - 01/03/2016 9:02 AM EDTAddended by: CONSUELO DELANEY on: 01/03/2016 09:02 AM Modules accepted: Orders * Telephone Encounter - Consuelo Delaney RN - 01/03/2016 9:01 AM EDT Patient instructed to increase Gabapentin at hs to 600mg per Nubia Conley and to call back withresponse. She v/u and agreed. * Telephone Encounter - Consuelo Delaney RN - 01/02/2016 11:22 AM EDT TC to patient; she is still having pain even with new nortriptyline, regular ibuprofen and tylenol.Willing to increase gabapentin; currently at 300mg tid. * Telephone Encounter - Marilee Ragland CMA - 12/27/2015 10:35 AM EDT Medication Prior Authorization for Primary [place] [address] Denied: X Case/Reference #: [id number] Additional Information from Insurance carrier: Gabapentin dose does not meet threshold as a trial given that the medication may be dosed to 3600 MG/day for neuropathic pain. * Telephone Encounter - Bryanna Cortes MA - 12/22/2015 1:00 PM EDT Medication Prior Authorization for Primary Care ?? [place] [address] ? Patient: Nancy Diego ?? Patient : 1965 ? Subscriber Insurance: [place] Medicaid ?? Insurance Phone #: [phone] ?? Sent via: CoverMyMeds ?? Lane: [id number] ?? Physician: NUBIA CONLEY APRN ? Return ?? Medication Requested: duloxetine Strength: 60 mg capsule ? Frequency: Take one tablet by mouth daily Disp.: 90 Refills: 3 ?? Currently taking: no ?? Diagnosis for this medication: Chronic Pain ICD-10 code: G89.2 ?? Prior medications trialed in this patient: ?? Medication: amitriptyline Approx Dates: 03/17/2014-06/19/2014 Outcome/Adverse Reactions: Inadequate response ? Medication: gabapentin Approx Dates: 12/01/15-present Outcome/Adverse Reactions: Inadequate response by itself. ? documented in this encounter Plan of Treatment Not on file documented as of this encounter Visit Diagnoses Diagnosis Fibromyalgia Mylagia and myositis, unspecified documented in this encounter Care Teams Program Director Relationship Specialty Start Date End Date Nubia Conley, [employer] [facility] [address] [place] [address] PCP - General 01/16/14 01/28/19 documented as of this encounter
--- OUTSIDE RECORDS SUMMARY | 2024-04-03 16:06 | XMS_ITS | Encounter Summary ---
Author Organization [facility] [place] [address] Care Team Providers Care Configuration Manager Name Role Phone Nubia Botello APRN Primary Care Provider + Reason for Visit * Reason Comments Rash getting worse, knees to her feet, some on arms Back Pain Encounter Details Date Type Department Care Team (Late st Contact Info) Description 04/08/2015 10:00 AM EDT Office Visit Internal Medicine at [address] [address] Nubia Botello APRN [facility] [place] [address] Rash; Chronic low back pain Social History Tobacco Use Types Packs/Day Years [...] Sign Reading Time Taken Comments Blood Pressure 147/92 04/08/2015 9:36 AM EDT Pulse 83 04/08/2015 9:36 AM EDT Temperature - - Respiratory Rate - - Oxygen Saturation 96% 04/08/2015 9:36 AM EDT Inhaled Oxygen Concentration - - Weight 105.2 kg (232 lb) 04/08/2015 9:36 AM EDT Height 162.6 cm (5' 4) 04/08/2015 9:36 AM EDT Body Mass Index 39.82 04/08/2015 9:36 AM EDT documented in this encounter Patient Instructions * Patient Instructions* Nubia Botello APRN - 04/08/2015 10:09 AM EDT Images from the original note were not included. [facility] Low Back Pain: Exercises Your Care Instructions [...] Alternate arm and leg (bird dog) exercise Note: Do this exercise slowly. Try to keep your body straight at all times, and do not let one hip drop lower than the other. 1. Start on the floor, on your [...] infront of you at the same time. [id number] exercise 1. Lie on your back with [...] Where can you learn more? Visit our [employer] information library at [email or web address] You can also view health information on Transcriptic, your personal patient account. Log in or sign up today. Enter Z938 in the search box to learn more about Low Back Pain: Exercises. ?? [id number] [email or web address]. Care instructions adapted under license by [facility]. This care instruction is for use with your licensed healthcare professional. If you have questions about a medical condition or this instruction, always ask your healthcare professional. [email or web address] disclaims any warranty or liability for your use of this information. Content Version: 10.4.099490; Current as of: February 01, 2014 [facility] Sciatica: Exercises Your Care Instructions Here are [...] How to do the exercises Back stretches 5. Get down on your hands and knees on the floor. 6. Relax your head and allow it to droop. Round your back up toward the ceiling until you feel a nice stretch in your upper, middle, and lower back. Hold this stretch for as long as it feels comfortable, or about 15 to 30 seconds. 7. Return to the starting position with a flat back while you are on your hands and knees. 8. Let your back sway by pressing your stomach toward the floor. Lift your buttocks toward the ceiling. 9. Hold this position for 15 to 30 seconds. 10. Repeat 2 to 4 times. Follow-up care is a perkins part of your treatment and safety. Be sure to make and go to all appointments, and call your doctor if you are having problems. It's also a good idea to know your test resultsand keep a list of the medicines you take. Where can you learn more? Visit our [employer] information library at [email or web address] You can also view health information on Transcriptic, your personal patient account. Log in or sign up today. Enter L998 in the search box to learn more about Sciatica: Exercises. ?? [id number] [email or web address]. Care instructions adapted under license by [facility]. This care instruction is for use with your licensed healthcare professional. If you have questions about a medical condition or this instruction, always ask your healthcare professional. [email or web address] disclaims any warranty or liability for your use of this information. Content Version: 10.4.202832; Current as of: November 25, 2013 [facility] Low Back Arthritis: Exercises Your Care Instructions Here are [...] leg pain. How to do the exercises Pelvic tilt 11. Lie on your back with your knees bent. 12. Brace your stomach--tighten your muscles by pulling in and imagining your belly button movingtoward your spine. 13. Press your lower back into the floor. You should feel your hips and pelvis rock back. 14. Hold for 6 seconds while breathing smoothly. 15. Relax and allow your pelvis and hips to rock forward. 16. Repeat 8 to 12 times. Back stretches 8. Get down on your hands and knees on the floor. 9. Relax your head and allow it to droop. Round your back up toward the ceiling until you feel a nice stretch in your upper, middle, and lower back. Hold this stretch for as long as it feels comfortable, or about 15 to 30 seconds. 10. Return to the starting position with a flat back while you are on your hands and knees. 11. Let your back sway by pressing your stomach toward the floor. Lift your buttocks toward the ceiling. 12. Hold this position for 15 to 30 seconds. 13. Repeat 2 to 4 times. Follow-up care is a perkins part of your treatment and safety. Be sure to make and go to all appointments, and call your doctor if you are having problems. It's also a good idea to know your test resultsand keep a list of the medicines you take. Where can you learn more? Visit our health information library at [email or web address] You can also view health information on Transcriptic, your personal patient account. Log in or sign up today. Enter T094 in the search box to learn more about Low Back Arthritis: Exercises. ?? [id number] [email or web address]. Care instructions adapted under license by [facility]. This care instruction is for use with your licensed healthcare professional. If you have questions about a medical condition or this instruction, always ask your healthcare professional. [email or web address] disclaims any warranty or liability for your use of this information. Content Version: 10.4.939344; Current as of: November 25, 2013 documented in this encounter Progress Notes * Nubia Botello APRN - 04/08/2015 9:40 AM EDT Images from the original note were not included. PCP: NUBIA BOTELLO APRN (General) Chief Complaint Patient presents with ??? Rash getting worse, knees to her feet, some on arms ??? Back Pain SUBJECTIVE: Nancy Diego is a 49 y.o. female who presents for rash that has been ongoing for about a month. Shedenies any new soaps or detergents. Denies any exposure to poison don or poison oak. She reports that the rash is very itchy. It is mainly on her lags, but in the last couple of days it has spread toher forearms. Nothing on her back or abdomen. Back pain- taking 800 mg ibuprofen and 1000 mg tylenol TID for pain and still having discomfort. - she is having sciatica pain as well. Review of Systems Constitutional: Negative for fever and chills. Musculoskeletal: Positive for myalgias, back pain and arthralgias. Skin: Positive for rash. Neurological: Negative for dizziness and light-headedness. Allergies Allergen Reactions ??? Latex Skin cracks and bleeds ??? Penicillins Rash Current Outpatient Prescriptions Medication Sig Dispense Refill ??? oxyCODONE (ROXICODONE) 5 mg Tablet Take 1 tablet by mouth nightly as needed for Pain. 7 tablet 0 ??? naproxen (NAPROSYN) 500 mg Tablet Take 1 tablet by mouth 2 times daily (with meals). 60 tablet 12 ??? ibuprofen (ADVIL;MOTRIN) 800 mg Tablet Take 1 tablet by mouth every 8 hours as needed. 30 tablet 0 ??? acetaminophen (TYLENOL) 500 mg tablet Take 1,000 mg by mouth every 6 hours as needed. ??? albuterol (PROAIR HFA) 90 mcg/actuation inhaler Inhale 2 puffs into the lungs every 4 hours as needed for Wheezing. Use with spacer 1 Inhaler 1 No current facility-administered medications for this visit. Patient Active Problem List Diagnosis Code ??? Depression F32.9 ??? Irritable bowel syndrome K58.9 ??? GERD (gastroesophageal reflux disease) K21.9 ??? Peptic ulcer disease K27.9 ??? Migraines G43.909 ??? Elevated blood pressure R03.0 ??? Body mass index (BMI) of 39.0-39.9 in adult Z68.39 ??? Low back pain M54.5 OBJECTIVE: Filed Vitals: 04/08/15 0936 BP: 147/92 Pulse: 83 Height: 162.6 cm (5' 4) Weight: 105.235 kg (232 lb) SpO2: 96% PHYSICAL EXAM: Physical Exam Constitutional: She is [...] & PLAN: Nancy was seen today for rash and back pain. Diagnoses and associated orders for this visit: Rash - appears to be contact dermatitis, will treat with high dose steriod. - clobetasol (TEMOVATE) 0.05 % Cream; Apply topically 2 times daily. Chronic low back pain Patient to use oxycodone for sleep as needed. - discussed good body mechanics and avoiding lifting. - oxyCODONE (ROXICODONE) 5 mg Tablet; Take 1 tablet by mouth nightly as needed for Pain. - cyclobenzaprine (FLEXERIL) 10 mg Tablet; Take 1 tablet by mouth 3 times daily as needed for Muscle spasms. Other Orders - albuterol (PROAIR HFA) 90 mcg/actuation HFA Aerosol Inhaler; Inhale 2 puffs into the lungs every 4 hours as needed for Wheezing. Use with spacer- hydrochlorothiazide (MICROZIDE) 12.5 mg Capsule; Take 1 capsule by mouth daily. documented in this encounter Plan of Treatment Not on file documented as of this encounter Visit Diagnoses Diagnosis Rash Rash and other nonspecific skin eruption Chronic low back pain Lumbago documented in this encounter Care Teams Configuration Manager Relationship Specialty Start Date End Date Nubia Botello, G[facility] [place] [address] PCP - General 01/16/14 01/28/19 documented as of this encounter
--- OUTSIDE RECORDS SUMMARY | 2024-04-03 16:06 | XMS_ITS | Encounter Summary ---
Author Organization [facility] [place] [address] Care Team Providers Care Credit Assessment Analyst Name Role Phone Rosmery Nubia Lopez APRN Primary Care Provider + Encounter Details Date Type Department Care Team (Late st Contact Info) Description 02/08/2016 Orders Only Internal Medicine at [address] [address] Nubia Botello APRN [facility] [place] [address] Social History Tobacco Use Types Packs/Day Years [...] on filedocumented in this encounter Care Teams Credit Assessment Analyst Relationship Specialty Start Date End Date Nubia Botello APRN [facility] [address] [place] [address] PCP - General 01/16/14 01/28/19 documented as of this encounter
--- OUTSIDE RECORDS SUMMARY | 2024-04-03 16:06 | XMS_ITS | Encounter Summary ---
Author Organization [facility] [place] [address] Care Team Providers Care Air Intelligence Officer Name Role Phone Nubia Botello APRN Primary Care Provider + Encounter Details Date Type Department Care Team (Late st Contact Info) Description 11/02/2016 Telephone Internal Medicine at [address] [address] Consuelo Delaney RN Social History [...] Telephone Encounter - Consuelo Delaney RN - 11/02/2016 9:35 AM EDT Patient informed of oximetry testing sent to [facility]. * Telephone Encounter - Consuelo Delaney RN - 11/02/2016 8:29 AM EDT Patient c/o sleep apnea-she has done 2 sleep studies many years ago, refused machine and meds at that time. Not willing to use cpap, worried about not hearing her teenagers at night but would be willing to try overnight oximetry. Shoulders and elbows ache chronically. Sometimes can't lift her arms. Using ointment, states she has tried SalonPas patches without benefit. Suggested she try SalonPas Lidocaine patches, available OTC. 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 She has contacted social security to initiate disability; Forms will be sent to PCP. documented in this encounter Plan of Treatment Not on file documented as of this encounter Visit Diagnoses Diagnosis Suspected sleep apnea documented in this encounter Care Teams Air Intelligence Officer Relationship Specialty Start Date End Date Nubia Botello, [facility] [address] [place] [address] PCP - General 01/16/14 01/28/19 documented as of this encounter
--- OUTSIDE RECORDS SUMMARY | 2024-04-03 16:06 | XMS_ITS | Encounter Summary ---
[place] [address] Care Team Providers Care Senior Consulting Manager Name Role Phone Nubia Conley APRN Primary Care Provider + Reason for Visit * Reason Onset Date Comments Prior Authorization 12/22/2015 duloxetine Encounter Details Date Type Department Care Team (Late st Contact Info) Description 12/22/2015 Telephone Internal Medicine at [address] [address] Bryanna Cortes CCMA Prior Authorization (duloxetine) Social [...] Encounter - Bryanna Cortes MA - 12/22/2015 10:14 AM EDT Medication Prior Authorization for Primary [place] [address] Patient: Nancy Diego Patient : 1965 Subscriber Insurance: [place] Medicaid Insurance Phone #: [phone] Sent via: [employer] Lane: [id number] Physician: NUBIA CONLEY APRN Return Medication Requested: duloxetine Strength: 30 mg capsule Frequency: Take 30 mg daily for one week, then Increase to 60 mg daily. Disp.: 7 Refills: 0 Currently taking: no Diagnosis for this medication: Chronic Pain ICD-10 code: G89.2 Prior medications trialed in this patient: Medication: amitriptyline Approx Dates: 03/17/2014-06/19/2014 Outcome/Adverse Reactions: Inadequate response Medication: gabapentin Approx Dates: 12/01/15-present Outcome/Adverse Reactions: Inadequate response by itself. documented in this encounter Plan of Treatment Not on file documented as of this encounter Visit Diagnoses Diagnosis Chronic low back pain without sciatica, unspecified back pain laterality- Primary documented in this encounter Care Teams Senior Consulting Manager Relationship Specialty Start Date End Date Nubia Conley APRN [facility] [address] [place] [address] PCP - General 01/16/14 01/28/19 documented as of this encounter
--- OUTSIDE RECORDS SUMMARY | 2024-04-03 16:06 | XMS_ITS | Encounter Summary ---
Author Organization [facility] [place] [address] Care Team Providers Care Rn Review Name Role Phone Nubia Conley APRN Primary Care Provider + Reason for Visit * Reason Onset Date Comments Prior Authorization 11/25/2015 pregabalin Encounter Details Date Type Department Care Team (Late st Contact Info) Description 11/25/2015 Telephone [place] [address] Bryanna Cortes CCMA Prior Authorization (pregabalin) Social History Tobacco Use Types Packs/Day Years [...] Telephone Encounter - Bryanna Cortes MA - 12/06/2015 1:49 PM EDT Medication Prior Authorization for Primary [place] [address] Denied: X Case/Reference #: [id number] Additional Information from Insurance carrier: The patient must have had a documented side effect, allergy or treatment failure to TWO drugs form the following: tricyclic antidepressant, gabapentin, or SNRI. Fluoxetine does not count as a trial. * Telephone Encounter - Bryanna Cortes MA - 11/25/2015 11:16 AM EDT Medication Prior Authorization for Primary Care [place] [address] Patient: Nancy Diego Patient : 1965 Subscriber Insurance: [place] Medicaid Insurance Phone #: [phone] Sent via: [employer] [address]: [id number] Physician: NUBIA CONLEY APRN Return Medication Requested: pregabalin Strength: 75 mg Frequency: take 1 capsule by mouth 2 times daily Disp.: 60 Refills: 0 Currently taking: no Diagnosis for this medication: Low Back Pain ICD-10 code: M54.5 documented in this encounter Plan of Treatment Not on file documented as of this encounter Visit Diagnoses Not on filedocumented in this encounter Care Teams Rn Review Relationship Specialty Start Date End Date Nubia Conley APRN [facility] [address] [place] [address] PCP - General 01/16/14 01/28/19 documented as of this encounter
--- OUTSIDE RECORDS SUMMARY | 2024-04-03 16:06 | XMS_ITS | Encounter Summary ---
Author Organization [facility] Address [facility] [place] [address] Care Team Providers Care Car Sales Associate Name Role Phone Nubia Contreras APRN Primary Care Provider + Encounter Details Date Type Department Care Team (Late st Contact Info) Description 03/09/2016 Telephone Internal Medicine at [address] [address] Consuelo Delaney RN Social History [...] Telephone Encounter - Consuelo Delaney RN - 03/09/2016 8:31 AM EDT Caller: patient Learning Needs Assessment Reviewed: Yes Subjective No chief complaint on file. for past 4 days she has found red blood on toilet paper and small amt in the bowl, one dime-sized clot yesterday and one today, frequency of stooling with liquid and solid stool sometimes with streaks of blood, sense of urgency and rectal pressure, and intermittent stomach pain. Denies dizziness,fever/chills, vomiting but slight nausea. Has not taken anything for the symptoms like Tums, and stopped Omeprazole last year due to nausea. States I have a cluster of ulcers in my stomach and I think they are acting up and I just feel like crap. Objective/Assessment Symptom onset: Location: Duration: Characteristics: Aggravating factors: Relieving factors: Timing: Severity: Pertinent Past Medical History: Plan Intervention/Plan/ Follow Up: Unable to make an appt today but is willing to come Saturday. Refused to go to ED. Advised to go to ED if bleeding or abdominal pain increases, and scheduled with Nubia Saturday. Routed to Nubia contreras. documented in this encounter Plan of Treatment Not on file documented as of this encounter Visit Diagnoses Not on filedocumented in this encounter Care Teams Car Sales Associate Relationship Specialty Start Date End Date Nubia Contreras, ENGLISH PROFESSOR [facility] [address] [place] [address] PCP - General 01/16/14 01/28/19 documented as of this encounter
--- OUTSIDE RECORDS SUMMARY | 2024-04-03 16:06 | XMS_ITS | Encounter Summary ---
Author Organization [facility] [place] [address] Care Team Providers Care Cocoa Room Operator Name Role Phone Nubia Conley APRN Primary Care Provider + Reason for Referral * E-Consultation (Routine) - Specialty Diagnoses / Procedures Referred By Dennis daniels Referred To Contact Rheumatology Diagnoses Elevated C-reactive protein (CRP) Myalgia Arthralgia, unspecified joint Procedures eConsult to Rheumatology (Primary Care Use Only) Nubia Conley SIGN ERECTOR [facility] [place] [address] Referral ID Status Reason Start Date Expiration Date V isits Requested Visits Authorized [id number] 01/25/2016 01/24/2017 3 3 Reason for Visit * Reason Comments Follow-up lab results Encounter Details Date Type Department Care Team (Late st Contact Info) Description 01/23/2016 9:00 AM EDT Office [place] [address] [address] [facility] [address] [place] [address] Elevated C-reactive protein (CRP) (Primary Dx); Dry mouth; Diabetes mellitus type 2, uncomplicated; Myalgia; Arthralgia, unspecified joint Social History Tobacco Use Types Packs/Day Years [...] Sign Reading Time Taken Comments Blood Pressure 146/82 01/23/2016 8:40 AM EDT Pulse 81 01/23/2016 8:40 AM EDT Temperature - - Respiratory Rate - - Oxygen Saturation 100% 01/23/2016 8:40 AM EDT Inhaled Oxygen Concentration - - Weight 101.9 kg (224 lb 9.6 oz) 01/23/2016 8:40 AM EDT Height 159.8 cm (5' 2.9) 01/23/2016 8:40 AM EDT Body Mass Index 39.91 01/23/2016 8:40 AM EDT documented in this encounter Progress Notes * Nubia Conley APRN - 01/23/2016 9:00 AM EDT PCP: NUBIA CONLEY APRN Chief Complaint Patient presents with ??? Follow-up lab results SUBJECTIVE: Nancy Diego is a 50 y.o. female who presents for follow up on lab results and chronic pain. She isstill having significant pain. She is taking the gabapentin, but after few hours she has to take 800 mg of ibuprofen and 1000 mg of tylenol for the pain. Pain is worse as the day goes on. By the timeshe is done work the pain is severe. She says that she takes more ibuprofen and tylenol when she gets home. She also takes gabapentin and the amitriptyline. She says that the gabapentin makes her very sleepy. - she also reports severe dry mouth. Nothing seems to help. Slighlty dry eyes. - no specific area of pain or tenderness. She has all over pain. Body feels tired and exhausted. Fatigue- worse in the last 3 or 4 days. Review of Systems Constitutional: Negative for chills and fever. Respiratory: Negative for cough and shortness of breath. Musculoskeletal: Positive for arthralgias and myalgias. Skin: Negative for rash and wound. Allergies Allergen Reactions ??? Latex Skin cracks [...] ??? Low back pain M54.5 OBJECTIVE: Vitals: 01/23/16 0840 BP: 146/82 BP Location (NBP): Left arm Patient Position: Sitting BP Cuff Sizes: Adult (25-34 cm) Pulse: 81 SpO2: 100% Weight: (!) 101.9 kg (224 lb 9.6 oz) Height: 159.8 cm (5' 2.9) PHYSICAL EXAM: Physical Exam Constitutional: She is oriented to person, place, and time. She appears well- developed and well-nourished. No distress. Neurological: She is alert and oriented to person, place, and time. Skin: Skin is warm and dry. Psychiatric: Judgment and thought content normal. She is slowed and withdrawn. She is not actively hallucinating. Cognition and memory are normal. She exhibits a depressed mood. ASSESSMENT & PLAN: Nancy was seen today for follow-up . Diagnoses and all orders for this visit: Elevated C-reactive protein (CRP) - Sedimentation rate; Future - High Sensitivity CRP; Future - Urinalysis with reflex Culture - Sedimentation rate - High Sensitivity CRP - will recheck levels to see if CRP is still elevated. Other labs were unremarkable. - she is having a lot of dry mouth, will do labs as cannot r/o Sjogren's syndrome. Dry mouth - SS-A/Ro Antibody; Future - SS-B/La Antibody; Future - SS-A/Ro Antibody - SS-B/La Antibody Diabetes mellitus type 2, uncomplicated - discussed diagnosis of diabetes. - will start on metformin. She will need f/u in 3 months. - metFORMIN (GLUCOPHAGE-XR) 500 mg Tablet Sustained Release 24 hr; Take 1 tablet by mouth daily. documented in this encounter Plan of Treatment Not on file documented as of this encounter Procedures Procedure Name Priority Date/Time Associated Diagnosis Comments SS-B/LA ANTIBODY Routine 01/23/2016 10:1 3 AM EDT Dry mouth SS-A/RO ANTIBODY Routine 01/23/2016 10:1 3 AM EDT Dry mouth URINALYSIS WITH REFLEX CULTURE Routine 01/23/2016 10:13 AM EDT Elevated C-reactive protein (CRP) SEDIMENTATION RATE Routine 01/23/2016 10 :13 AM EDT Elevated C-reactive protein (CRP) CRP, CARDIAC RISK (HS CRP) Routine 01/23/2016 10:13 AM EDT Elevated C-reactive protein (CRP) documented in this encounter Results * (ABNORMAL) Urinalysis with reflex Culture (01/23/2016 10:13 AM EDT) Glucose, Urine Dipstick Negative Negative mg/dL [facility] Protein, Urine Dipstick Negative Negative mg/dL [facility] Bilirubin, Urine Dipstick Negative Negative mg/dL [facility] Comment: Clinical correlation required for positive Urine Bilirubin results as false positive may occur with some drugs and drug related products. If a false positive is suspected a serum total bilirubin should be considered if clinically indicated. Urobilinogen, Urine Dipstick Normal Normal mg/dL [facility] pH, Urn (dipstick) 6.0 5.0 - 8.0 [facility] Blood, Urine Dipstick Small(A) Negative mg/dL [facility] Ketone, Urine Dipstick Negative Negative mg/dL [facility] Nitrite, Urine Dipstick Negative Negative [facility] Leukocytes, Urine Dipstick Negative Negative [facility] Appearance, Urine Dipstick Clear Clear [facility] Specific Swisher Urine Automated 1.009 1.002 - 1.030 [facility] Color, Urine Dipstick Yellow Yellow [facility] RBC, Urine <1 0 - 4 /HPF [facility] WBC, Urine Not Present 0 - 5 /HPF [facility] Bacteria, Urine Rare(A) None /HPF [facility] Reflex to Culture No [facility] Urine specimen (specimen) 01/23/2016 10:13 AM EDT 01/23/2016 12:26 PM EDT Narrative Resulting Agency Comment Spec In Lab Consuelo Dominguez MD URINE ORDERABLES [facility] [place] [address] * SS-B/La Antibody (01/23/2016 10:13 AM EDT) SS-B/La Ab <0.2 <1.0 (Negative) U [facility] Comment: Test Performed by: [place] [address] [employer] Software Engineer: Papa Stout II, M.D., Ph.D. Blood specimen (specimen) 01/23/2016 10:13 AM EDT 01/23/2016 2:02 PM EDT Narrative Resulting Agency Comment Spec In Lab Consuelo Dominguez MD LAB SEND OUT ORDE RABLES Performing Organization Address City/[facility]/ZIP Co de Phone Number [facility] [place] [address] * SS-A/Ro Antibody (01/23/2016 10:13 AM EDT) SS-A/Ro Ab <0.2 <1.0 (Negative) U [facility] Comment: Test Performed by: [place] [address] [employer] Software Engineer: Papa Stout II, M.D., Ph.D. Blood specimen (specimen) 01/23/2016 10:13 AM EDT 01/23/2016 2:02 PM EDT Narrative Resulting Agency Comment Spec In Lab Consuelo Dominguez MD LAB SEND OUT DARIUSZ HAYDEN Performing Organization Address [facility] Co de Phone Number [facility] [place] [address] * High Sensitivity CRP (01/23/2016 10:13 AM EDT) C-Reactive Protein High Sensitivity 30.0 mg/L [facility] Comment: Interpretations: 1) For accurate [...] and Cardiovascular Disease. ??Circulation 2003; 107:499-511 2. Dione PM. ??Clinical applications of C-reactive protein for cardiovascular disease detection and prevention. ??Circulation 2003; 107:363-369 Blood specimen (specimen) 01/23/2016 10:13 AM EDT 01/23/2016 12:26 PM EDT Narrative Resulting Agency Comment Spec In Lab Vamsi Bey MD CHEMISTRY ORDERABLES Performing Organization Address [facility] Co de Phone Number [facility] [place] [address] * Sedimentation rate (01/23/2016 10:13 AM EDT) Sedimentation Rate Automated 18 0 - 20 mm/hr [facility] Blood specimen (specimen) 01/23/2016 10:13 AM EDT 01/23/2016 12:27 PM EDT Narrative Resulting Agency Comment Spec In Lab Vamsi Bey MD HEMATOLOGY ORDERABLE S Performing Organization Address [facility] Co de Phone Number [facility] [address] documented in this encounter Visit Diagnoses Diagnosis Elevated C-reactive protein (CRP)- Primary Dry mouth Disturbance of salivary secretion Diabetes mellitus type 2, uncomplicated Type II or unspecified type diabetes mellitus without mention of complication, not stated as uncontrolled Myalgia Mylagia and myositis, unspecified Arthralgia, unspecified joint documented in this encounter Care Teams Cocoa Room Operator Relationship Specialty Start Date End Date Nubia Conley APRN [facility] [address] [address] PCP - General 01/16/14 01/28/19 documented as of this encounter
--- OUTSIDE RECORDS SUMMARY | 2024-04-03 16:06 | XMS_ITS | Encounter Summary ---
Author Organization [facility] [place] [facility] [place] [address] Care Team Providers Care Media Center Specialist Name Role Phone Nubia Botello APRN Primary Care Provider + Reason for Visit * Reason Comments Rash red spots on both ar ms Encounter Details Date Type Department Care Team (Late st Contact Info) Description 08/22/2016 10:40 AM EST Office Visit Internal Medicine at [address] [address] Nubia Botello CLINICAL APPLICATION SPECIALIST [facility] [place] [address] Fibromyalgia; Acute bilateral low back pain with right-sided sciatica; Rash; Overactive bladder Social History Tobacco Use Types Packs/Day Years [...] Sign Reading Time Taken Comments Blood Pressure 143/78 08/22/2016 10:39 AM EST Pulse 83 08/22/2016 10:39 AM EST Temperature 36.6 ??C (97.9 ??F) 08/22/2016 10:[address] Respiratory Rate - - Oxygen Saturation 97% 08/22/2016 10:39 AM EST Inhaled Oxygen Concentration - - Weight 108.4 kg (239 lb) 08/22/2016 10:39 AM EST Height 159.8 cm (5' 2.9) 08/22/2016 10:39 AM ES T Body Mass Index 42.47 08/22/2016 10:39 AM EST documented in this encounter Patient Instructions * Patient Instructions* Nubia Botello, CLINICAL APPLICATION SPECIALIST - 08/22/2016 11:32 AM EST Images from the original note were not included. Gabapentin- increase by 300 mg every 3 days, to pain control or max of 900 mg three times a day. [facility] Acute Low Back Pain: Exercises Your Care Instructions [...] How to do the exercises Back stretches 1. Get down on your hands and knees on the floor. 2. Relax your head and allow it to droop. Round your back up toward the ceiling until you feel a nice stretch in your upper, middle, and lower back. Hold this stretch for as long as it feels comfortable, or about 15 to 30 seconds. 3. Return to the starting position with a flat back while you are on your hands and knees. 4. Let your back sway by pressing your stomach toward the floor. Lift your buttocks toward the ceiling. 5. Hold this position for 15 to 30 seconds. 6. Repeat 2 to 4 times. Follow-up care is a perkins part of your treatment and safety. Be sure to make and go to all appointments, and call your doctor if you are having problems. It's also a good idea to know your test resultsand keep a list of the medicines you take. Where can you learn more? Visit our health information library at [email or web address] You can also view health information on [employer], your personal patient account. Log in or sign up today. Enter Z071 in the search box to learn more about Acute Low Back Pain: Exercises. ?? [phone] [employer]. Care instructions adapted under license by [facility]. This care instruction is for use with your licensed healthcare professional. If you have questions about a medical condition or this instruction, always ask your healthcare professional. [employer] disclaims any warranty or liability for your use of this information. Content Version: 11.0.771146; Current as of: November 14, 2015 [facility] Sciatica: Exercises Your Care Instructions Here are [...] How to do the exercises Back stretches 7. Get down on your hands and knees on the floor. 8. Relax your head and allow it to droop. Round your back up toward the ceiling until you feel a nice stretch in your upper, middle, and lower back. Hold this stretch for as long as it feels comfortable, or about 15 to 30 seconds. 9. Return to the starting position with a flat back while you are on your hands and knees. 10. Let your back sway by pressing your stomach toward the floor. Lift your buttocks toward the ceiling. 11. Hold this position for 15 to 30 seconds. 12. Repeat 2 to 4 times. Follow-up care is a perkins part of your treatment and safety. Be sure to make and go to all appointments, and call your doctor if you are having problems. It's also a good idea to know your test resultsand keep a list of the medicines you take. Where can you learn more? Visit our health information library at [email or web address] You can also view health information on [employer], your personal patient account. Log in or sign up today. Enter L998 in the search box to learn more about Sciatica: Exercises. ?? [id number] [employer]. Care instructions adapted under license by [facility]. This care instruction is for use with your licensed healthcare professional. If you have questions about a medical condition or this instruction, always ask your healthcare professional. [employer] disclaims any warranty or liability for your use of this information. Content Version: 11.0.142567; Current as of: November 14, 2015 documented in this encounter Progress Notes * Nubia Botello APRN - 08/22/2016 10:40 AM EST Images from the original note were not included. PCP: Nubia Botello APRN Chief Complaint Patient presents with ??? Rash red spots on both arms SUBJECTIVE: Nancy Diego is a 50 y.o. female who presents for her pain and a rash. Back pain- it is constant pain. She reports that it bothers her with climbing stairs. She reports that it hurts a lot at work. She describes it as irritating. She reports pain is in low back from herhips. She has radiation to her right buttocks. She reports that at times it will travel to the bulging disk. She is aware that she is not going to be pain free. - she has chronic aching in her shoulders, knees and hips. She reports that she has aching into herachilles. She reports that it is the back pain that is the most bothersome. Rash- She reports that it started a couple of weeks ago. She reports that they are very itchy and then will start out of the blue. She does have a new softner that she has been using. Urination- frequency with urination. She reports that she empties her bladder before she goes to bed, but then will have urgency before she is able to make it to the bathroom. She does have increasedthirst. Review of Systems Constitutional: Negative for chills and fever. Respiratory: Negative for cough and shortness of breath. Cardiovascular: Negative for chest pain and palpitations. Genitourinary: Positive for frequency and urgency. Negative for difficulty urinating, dysuria, flank pain and genital sores. Musculoskeletal: Positive for arthralgias, back pain and myalgias (back). Skin: Positive for rash. Psychiatric/Behavioral: Positive for dysphoric mood and sleep disturbance. Allergies Allergen Reactions ??? Latex Skin cracks and bleeds ??? Penicillins Rash Current Outpatient Prescriptions Medication Sig Dispense Refill ??? DULoxetine (CYMBALTA) 20 mg Capsule, Delayed Release(E.C.) Take 2 capsules by mouth daily. May increase to 60 mg daily after one week. Indications: Fibromyalgia 60 tablet 11 ??? gabapentin (NEURONTIN) 300 mg Capsule Take 2 capsules by mouth 3 times daily. 180 capsule 3 ??? metFORMIN (GLUCOPHAGE-XR) 500 mg [...] ??? Migraines G43.909 ??? Elevated blood pressure [id number] ??? Body mass index (BMI) of 39.0-39.9 in adult Z68.39 ??? Low back pain M54.5 OBJECTIVE: Vitals: 08/22/16 1039 BP: 143/78 Pulse: 83 Temp: 36.6 ??C (97.9 ??F) TempSrc: Oral SpO2: 97% Weight: (!) 108.4 kg (239 lb) Height: 159.8 cm (5' 2.9) PHYSICAL EXAM: Physical Exam Constitutional: She is oriented to person, place, and time. She appears well- developed and well-nourished. HENT: Head: Normocephalic and atraumatic. Eyes: Conjunctivae are normal. No scleral icterus. Pulmonary/Chest: Effort normal. Musculoskeletal: Lumbar back: She exhibits decreased range of motion, tenderness and pain. She exhibits no swelling. Back: Positive SLR on right side and contralateral LR with pain on Right when lifting left leg. Neurological: She is alert and oriented to person, place, and time. Skin: Skin is warm and dry. Psychiatric: She has a normal mood and affect. Her behavior is normal. Judgment and thought contentnormal. ASSESSMENT & PLAN: Nancy was seen today for rash. Diagnoses and all orders for this visit: Fibromyalgia - gabapentin (NEURONTIN) 300 mg Capsule; Take 3 capsules by mouth 3 times daily. Acute bilateral low back pain with right-sided sciatica - she does have positive SLR. Will do round of steroids to see if will help with pain. Discussed the importance of avoiding lifting and pulling, and that I think she should change jobs. She is hopingto stop her current job in the next 6 months. Since she is having and exacerbation, not to stay outof work for one week was given. Would recommend longer if pain does not improve. - discussed returning to physical therapy or referral to spine center for possible steroid injections. She does not like needles and would like to defer referral at this time. - will give her exercises to try at home as well. - predniSONE (DELTASONE) 20 mg Tablet; Take 2 tablets by mouth daily for 5 days. Rash - likely allergic. Discussed stopping the new fabric softner. Differential includes bed bugs and this was discussed with her. Most of people in family do not have it. She and her daughter and one grandchild have started with some symptoms Patient to monitor. Overactive Bladder - oxybutynin (DITROPAN-XL) 5 mg Tablet Extended Rel 24 hr; Take 1 tablet by mouth daily. - POCT urine dipstick documented in this encounter Plan of Treatment Not on file documented as of this encounter Procedures Procedure Name Priority Date/Time Associated Diagnosis Comments POCT URINE DIPSTICK Routine 08/22/2016 1 0:30 AM EST Fibromyalgia documented in this encounter Results * (ABNORMAL) POCT urine dipstick (08/22/2016 10:30 AM EST) POC Sp [place] 1.010 1.002 - 1.030 POC pH, UA 5 5.0 - 8.5 POC Leuk, UA neg Negative - Negative POC Nitrite, UA neg Negative - Negative POC Protein, UA trace Negative - Negative mg/dL POC Glucose, UA norm Normal - Normal mg/dL POC Ketone, UA neg Negative - Negative POC Urobil, UA norm 0.2 - 1.0 mg/dL POC Bili, UA neg Negative - Negative POC Blood, UA neg Negative - Negative greg/uL 08/22/2016 10:3 0 AM EST Katie Ervin MD POINT OF CARE TEST O YANI documented in this encounter Visit Diagnoses Diagnosis Fibromyalgia Mylagia and myositis, unspecified Acute bilateral low back pain with right-sided sciatica Rash Rash and other nonspecific skin eruption Overactive bladder Hypertonicity of bladder documented in this encounter Care Teams Media Center Specialist Relationship Specialty Start Date End Date Nubia Botello, [facility] [address] [place] [address] PCP - General 01/16/14 01/28/19 documented as of this encounter
--- OUTSIDE RECORDS SUMMARY | 2024-04-03 16:06 | XMS_ITS | Encounter Summary ---
Author Organization [facility] [place] [address] Care Team Providers Care Shoe Stainer Name Role Phone Nubia Botello APRN Primary Care Provider + Reason for Visit * Reason Onset Date Comments Results 11/22/2016 Overnight Pulse Ox done by [facility] - requesting results. Encounter Details Date Type Department Care Team (Late st Contact Info) Description 11/22/2016 Telephone Internal Medicine at [address] [address] Alyssa Suazo RN Results (Overnight Pulse Ox done by [facility] - requesting results.) Social History Tobacco Use Types Packs/Day Years [...] Miscellaneous Notes * Telephone Encounter - Alyssa Suazo RN - 11/22/2016 2:20 PM EDT TC maco Cruz - Requesting results of Overnight Pulse Oximetry done by [facility]. Results not found in patients record. TC to [facility] - Requested that the results be faxed to [facility]. Spoke with Jessica - She stated that she had faxed the results to the provider and had received anorder for Nocturnal Oxygen at 2L. - She stated that [facility] needed [facility] fax notes from prior to the Nocturnal Testing before the delivery of the oxygen can be arranged. Notes faxed to Jessica at [facility] . (Notes dated 01/23/16, 03/12/16, 08/22/16 andTC note dated 11/02/16.) Tc to Nancy - advised her that we are working with [facility] to try to get the oxygen delivered as soon as possible. Scheduled to be seen for follow up by Nubia Botello APRN, on 11/26/16. Patient is aware of and agrees with the plan of care. documented in this encounter Plan of Treatment Not on file documented as of this encounter Visit Diagnoses Not on filedocumented in this encounter Care Teams Shoe Stainer Relationship Specialty Start Date End Date Nubia Botello APRN [facility] [address] [place] [address] PCP - General 01/16/14 01/28/19 documented as of this encounter
--- OUTSIDE RECORDS SUMMARY | 2024-04-03 16:06 | XMS_ITS | Encounter Summary ---
Author Organization [facility] [place] [address] Care Team Providers Care Facilities Manager Name Role Phone Nubia Botello APRN Primary Care Provider + Reason for Visit * Reason Onset Date Comments Other 11/28/2016 Office note faxe d to [facility] Encounter Details Date Type Department Care Team (Late st Contact Info) Description 11/28/2016 Telephone Internal Medicine at [address] [address] Alyssa Suazo RN Other (Office note faxed to [facility] ) Social History Tobacco Use Types Packs/Day [...] Telephone Encounter - Alyssa Suazo RN - 11/28/2016 3:43 PM EDT Office note dated 11/26/16 faxed to [facility] - Attention: [place] - Documentation needed for Nocturnal Oxygen in the home. * Telephone Encounter - Alyssa Suazo RN - 11/28/2016 8:30 AM EDT TC from [facility] - [place] - requesting notes from 11/26/16 appointment with Nubia Botello APRN. Awaiting copy of note so that Nocturnal Oxygen can be delivered to the home. Note to be faxed to #[phone]. Attention: [place] Request communicate to Nubia Botello APRN via In Basket. documented in this encounter Plan of Treatment Not on file documented as of this encounter Visit Diagnoses Not on filedocumented in this encounter Care Teams Facilities Manager Relationship Specialty Start Date End Date Nubia Botello APRN [facility] [place] [address] PCP - General 01/16/14 01/28/19 documented as of this encounter
--- OUTSIDE RECORDS SUMMARY | 2024-04-03 16:06 | XMS_ITS | Encounter Summary ---
Author Organization [facility] [place] [address] Care Team Providers Care Circus Hand Name Role Phone Nubia Botello GARY Primary Care Provider + Encounter Details Date Type Department Care Team (Late st Contact Info) Description 02/06/2016 Telephone Internal Medicine at [address] [address] Nubia Botello, GARY [facility] [place] [place] [address] Social History Tobacco Use Types Packs/Day Years [...] encounter Miscellaneous Notes * Telephone Encounter - Rosmery Nubia Lopez, AUTO PAINTER - 02/07/2016 2:28 PM EDT She reports that she is doing ok. She thinks that gabapentin is helping, but not complete relief. She is taking 300 mg in morning and afternoon of the gabapentin. 600 mg at night with nortriptylineat night. She reports that she feels that she cannot get up. She had to have her daughter help her shave her arm pits the other day. All of her muscles seem to ache. She feels that all of her muscles have tensed up. - she does not feel that she can take higher doses of the gabapentin because it makes her very tired. She is still doing tylenol and ibuprofen. She is taking the nortriptyline at night and that helpswith sleep, but not with pain during the day. * Telephone Encounter - Nubia Botello APRN - 02/06/2016 3:22 PM EDT Returned call to patient and no answer. * Telephone Encounter - Shereen Estrada - 02/06/2016 1:11 PM EDT Patient called stating that she was supposed to get a phone call for the last two weeks after having her blood work done to discuss the results. Patient would like a return phone call as soon as possible, please. documented in this encounter Plan of Treatment Not on file documented as of this encounter Visit Diagnoses Not on filedocumented in this encounter Care Teams Circus Hand Relationship Specialty Start Date End Date Nubia Botello APRN [facility] [address] [place] [address] PCP - General 01/16/14 01/28/19 documented as of this encounter
--- OUTSIDE RECORDS SUMMARY | 2024-04-03 16:06 | XMS_ITS | Encounter Summary ---
Author Organization [facility] [place] [address] Care Team Providers Care Microsoft Windows Engineer Name Role Phone Rosmery Nubia Lopez APRN Primary Care Provider + Reason for Visit * Reason Comments Medication Refill Encounter Details Date Type Department Care Team (Late st Contact Info) Description 06/15/2015 Refill Internal Medicine at [address] [address] Nubia Botello CLINICAL SPECIALIST MEDICAL DEVICE [facility] [place] [address] Social History Tobacco Use Types Packs/Day Years [...] on filedocumented in this encounter Care Teams Microsoft Windows Engineer Relationship Specialty Start Date End Date Nubia Botello APRN [facility] [address] [place] [address] PCP - General 01/16/14 01/28/19 documented as of this encounter
--- OUTSIDE RECORDS SUMMARY | 2024-04-03 16:06 | XMS_ITS | Encounter Summary ---
Author Organization [facility] [place] [address] Care Team Providers Care Volleyball Commentator Name Role Phone Nubia Botello APRN Primary Care Provider + Encounter Details Date Type Department Care Team (Late st Contact Info) Description 07/02/2016 Orders Only Internal Medicine at [address] [phone] Nubia Botello APRN [facility] [address] [address] Fibromyalgia Social History Tobacco Use Types Packs/Day [...] Progress Notes * Nubia Botello APRN - 07/02/2016 2:10 PM EST Spoke to patient. Increased gabapentin to 600 mg TID and cymbalta to 40 mg daily. Will increase cymbalta to 60 mg daily in one week if still having a lot of pain. documented in this encounter Plan of Treatment Not on file documented as of this encounter Visit Diagnoses Diagnosis Fibromyalgia Mylagia and myositis, unspecified documented in this encounter Care Teams Volleyball Commentator Relationship Specialty Start Date End Date Nubia Botello APRN [facility] [address] [place] [address] PCP - General 01/16/14 01/28/19 documented as of this encounter
--- OUTSIDE RECORDS SUMMARY | 2024-04-03 16:06 | XMS_ITS | Encounter Summary ---
Author Organization [facility] [place] [address] Care Team Providers Care Outreach Manager Name Role Phone Nubia Botello APRN Primary Care Provider + Encounter Details Date Type Department Care Team (Late st Contact Info) Description 11/28/2015 Notes Only Internal Medicine at [address] [phone] Nubia Botello APRN [facility] [place] [address] Social History Tobacco Use Types Packs/Day Years [...] Progress Notes * Nubia Botello APRN - 11/28/2015 2:19 PM EDT Checked [place] drug monitoring program and did not see prescriptions being filled. Called her pharmacy and spoke with Seema. She confirmed that rx for oxycodone were filled on 11/24/15 and 04/08/15, whichcoincide with when they were given to her. documented in this encounter Plan of Treatment Not on file documented as of this encounter Visit Diagnoses Not on filedocumented in this encounter Care Teams Outreach Manager Relationship Specialty Start Date End Date Nubia Botello APRN [facility] [place] [address] PCP - General 01/16/14 01/28/19 documented as of this encounter
--- OUTSIDE RECORDS SUMMARY | 2024-04-03 16:06 | XMS_ITS | Encounter Summary ---
Author Organization [facility] [place] [address] Care Team Providers Care Fashion Adviser Name Role Phone Nubia Conley [facility] Primary Care Provider + Reason for Referral * Consultation (Routine) - Closed Specialty Diagnoses / Procedures Referred By Dennis daniels Referred To Contact Gastroenterology Diagnoses Rectal bleed Nubia Conley MANAGER AP[employer] [facility] [place] [address] [facility] End[address] [place] [address] Referral ID Status Reason Start Date Expiration Date V isits Requested Visits Authorized [id number] Closed Test Only 03/12/2016 03/12/2017 1 1 * Diagnostic Test (Routine) - Closed Specialty Diagnoses / Procedures Referred By Dennis daniels Referred To Contact Radiology Diagnoses Rectal bleed Lower abdominal pain Procedures CT Abdomen & Pelvis w Contrast Nubia Conley [facility] [place] [address] [facility] [place] [address] Referral ID Status Reason Start Date Expiration Date V isits Requested Visits Authorized [id number] Closed Specialty Service Requested 03/13/2016 06/11/2016 1 1 Reason for Visit * Reason Comments Rectal Bleeding 5 days every day ble eding Abdominal Pain Encounter Details Date Type Department Care Team (Late st Contact Info) Description 03/12/2016 9:20 AM EDT Office Visit Internal Medicine at [address] [address] Nubia Conley APRN [facility] GENERAL INTERNAL MED[facility] [place] [address] Rectal bleed; Lower abdominal pain; Fibromyalgia Social History Tobacco Use Types Packs/Day [...] Sign Reading Time Taken Comments Blood Pressure 131/81 03/12/2016 8:44 AM EDT Pulse 84 03/12/2016 8:44 AM EDT Temperature 36.9 ??C (98.4 ??F) 03/12/2016 8:44 AM ED T Respiratory Rate - - Oxygen Saturation 96% 03/12/2016 8:44 AM EDT Inhaled Oxygen Concentration - - Weight 101.5 kg (223 lb 12.8 oz) 03/12/2016 8:44 AM EDT Height - - Body Mass Index 39.77 01/23/2016 8:40 AM EDT documented in this encounter Progress Notes * Nubia Conley APRN - 03/12/2016 9:20 AM EDT PCP: NUBIA CONLEY APRN Chief Complaint Patient presents with ??? Rectal Bleeding 5 days every day bleeding ??? Abdominal Pain SUBJECTIVE: Nancy Diego is a 50 y.o. female who presents for rectal bleeding. She reports that it has been ongoing for 5 days. She reports that there is a lot of blood in the toilet bowel. She is having a lot of blood on the toilet bowel. - she has not had any constipation, has more diarrhea. - she does try to avoid popcorn and strawberries. - she has had colonoscopy, but it was greater than 10 years ago. - She has had some upper abdominal pain for the last 5 days. She has been taking tums and that did not help a lot. She took some ibuprofen yesterday. Fibromyalgia- gabapentin is helping, she still has ongoing back pain. She reports that she feels the pain along her spine. She has some pain in the lumbar spine and radiates to her buttocks bilaterally. Will radiate down both legs, worse on the right than the left. She is not as fatigued and tired now that she has stopped the nortriptyline. Review of Systems Constitutional: Negative for chills and fever. Gastrointestinal: Positive for abdominal pain, anal bleeding, blood in stool, diarrhea and nausea. Negative for constipation and vomiting. Allergies Allergen Reactions ??? Latex Skin cracks and bleeds ??? Penicillins Rash Current Outpatient Prescriptions Medication Sig Dispense Refill ??? DULoxetine (CYMBALTA) 20 mg Capsule, Delayed Release(E.C.) Take 1 capsule by mouth daily. 30 tablet 11 ??? metFORMIN (GLUCOPHAGE-XR) 500 mg Tablet Sustained Release 24 hr Take 1 tablet by mouth daily. 30 tablet 12 ??? gabapentin (NEURONTIN) 300 mg Capsule Take 1 capsule twice daily and 2 capsules at bedtime 90 capsule 3 ??? hydrochlorothiazide (HYDRODIURIL) 25 mg Tablet Take [...] ??? Low back pain M54.5 OBJECTIVE: Vitals: 03/12/16 0844 BP: 131/81 BP Location (NBP): Left arm Patient Position: Sitting BP Cuff Sizes: Large Adult (32-43 cm) Pulse: 84 Temp: 36.9 ??C (98.4 ??F) TempSrc: Oral SpO2: 96% Weight: (!) 101.5 kg (223 lb 12.8 oz) PHYSICAL EXAM: Physical Exam Constitutional: She appears well-developed and well-nourished. No distress. HENT: Head: Normocephalic and atraumatic. Mouth/Throat: Oropharynx is clear and moist. Eyes: Conjunctivae are normal. Cardiovascular: Normal rate, regular rhythm and normal heart sounds. Pulmonary/Chest: Effort normal and breath sounds normal. Abdominal: Soft. Bowel sounds are normal. She exhibits no distension and no mass. There is tenderness (LLQ and RLQ). There is no rebound and no guarding. Genitourinary: Rectal exam shows external hemorrhoid. Rectal exam shows no internal hemorrhoid and guaiac negative stool. Skin: Skin is warm and dry. No rash noted. Psychiatric: She has a normal mood and affect. Her behavior is normal. Judgment and thought contentnormal. ASSESSMENT & PLAN: Nancy was seen today for rectal bleeding and abdominal pain. Diagnoses and all orders for this visit: Rectal bleed - POCT urine dipstick; Future - CT Abdomen & Pelvis w Contrast; Future - CBC (with Diff); Future - Comprehensive metabolic panel (non-fasting); Future - Referral to Gastroenterology - lower abdominal tenderness, want to r/o diverticulitis will order CT - given GI bleed will do colonoscopy as well and check CBC and CMP Lower abdominal pain - CT Abdomen & Pelvis w Contrast; Future Fibromyalgia - gabapentin (NEURONTIN) 300 mg Capsule; Take 1 capsule in the morning and 2 capsules in the afternoon and at bedtime. - will increase gabapentin to help with fibromyalgia pain and sciatica pain in afternoon. documented in this encounter Miscellaneous Notes * Addendum Note - Lisa Montgomery LNA - 03/12/2016 11:47 AM EDTAddended by: LISA MONTGOMERY on: 03/12/2016 11:47 AM Modules accepted: Orders documented in this encounter Plan of Treatment Scheduled Referrals Name Type Priority Associated Diagnoses Order Schedule Referral to Gastroenterology Outpatient Referral Routine Rectal bleed Ordered: 03/12/2016 documented as of this encounter Procedures Procedure Name Priority Date/Time Associated Diagnosis Comments HEMOGRAM Routine 03/12/2016 10:34 AM EDT Rectal bleed DIFFERENTIAL, AUTOMATED Routine 03/12/2016 10:34 AM EDT Rectal bleed CBC (WITH DIFF) Routine 03/12/2016 10:34 AM EDT Rectal bleed COMPREHENSIVE METABOLIC PANEL Routine 03/12/2016 10:34 AM EDT Rectal bleed POCT URINE DIPSTICK Routine 03/12/2016 9 :00 AM EDT Rectal bleed documented in this encounter Results * CT [...] steatosis. Katie Ervin MD IMG CT ORDERABLES * (ABNORMAL) Differential, Automated (03/12/2016 10:34 AM EDT) Neutrophil % 51.9 % [facility] Neutrophil Absolute 5.44 1.70 - 6.10 x10(3)/ L [facility] Lymph % 39.2 % [facility] Lymphocytes Abs 4.1(H) 0.9 - 3.2 x10(3)/ L [facility] Monocyte % 5.3 % [facility] Monocyte Abs 0.6 0.3 - 0.9 x10(3)/ L [facility] Eos % 2.2 % [facility] Eosinophils Abs 0.2 0.0 - 0.4 x10(3)/ L [facility] Basophil % 0.7 % [facility] Baso Absolute 0.1 0.0 - 0.1 x10(3)/ L [facility] Immature Gran % 0.70 % [facility] Comment: Immature granulocytes(IG's)percentage and absolute count will include metamyelocytes, myelocytes, and promyelocytes. Blood smears from CBCs yielding IG's will be scanned manually for concordance. If this scan disagrees with the automated IG or if promyelocytes are noted, a manual differential will be performed. Immature Gran Absolute 0.07(H) 0.00 - 0.04 x10(3)/mc L [facility] Blood specimen (specimen) 03/12/2016 10:34 AM EDT 03/12/2016 12:25 PM EDT Narrative Resulting Agency Comment Spec In Lab Katie Ervin MD HEMATOLOGY ORDERABLE S [facility] [place] [address] * (ABNORMAL) Hemogram (03/12/2016 10:34 AM EDT) White Blood Cell 10.5(H) 4.0 - 9.5 x10(3)/mc L [facility] Red Blood Cell 5.20 4.00 - 5.21 x10(6)/mc L [facility] Hemoglobin 15.0 11.7 - 15.5 gm/dL [facility] Hematocrit 44.5 35.7 - 45.8 % [facility] Mean Cell Volume 85.6 82.6 - 94.4 fL [facility] Mean Cell Hemoglobin 28.8 27.1 - 32.0 pg [facility] Mean Cell Hemoglobin Concentration 33.7 31.7 - 35.0 gm/dL [facility] Platelet 308 145 - 357 x10(3)/mc L [facility] RDW Standard Deviation 41.2 37.0 - 46.0 [facility] RDW coefficient of variation 13.2 11.5 - 14.1 % [facility] Mean Platelet Volume 10.3 7.6 - 12.9 [facility] NRBC% auto 0.0 % [facility] NRBC Absolute 0.000 0.000 - 0.000 x10(3)/mc L [facility] Blood specimen (specimen) 03/12/2016 10:34 AM EDT 03/12/2016 12:25 PM EDT Narrative Resulting Agency Comment Spec In Lab Katie Ervin MD HEMATOLOGY ORDERABLE S [facility] [place] [address] * (ABNORMAL) Comprehensive metabolic panel (non-fasting) (03/12/2016 10:34 AM EDT) Glucose 112 65 - 199 mg/dL [facility] Comment:Diabetes: >=200 mg/d L plus symptoms Blood Urea Nitrogen 15 8 - 18 mg/dL [facility] Creatinine 0.73 0.70 - 1.20 mg/dL [facility] Comment: Please note that the pediatric reference intervals supplied above were not validated at [facility]. Results from pediatric patients should be interpreted in conjunction to the patient's age, height and muscle mass. Sodium 141 135 - 145 mmol/L [facility] Potassium 3.6 3.5 - 5.0 mmol/L [facility] Comment: Please note: ??Patients with WBC >100,000 may have falsely elevated Potassium levels. ??For accurate Potassium quantification in these patients send serum separator tube (gold top) for subsequent determinations. ??Contact the Clinical Chemistry Laboratory if there are any questions. Chloride 98 98 - 107 mmol/L [facility] Carbon Dioxide 26 22 - 31 mmol/L [facility] Anion Gap 17(H) 5 - 15 mmol/L [facility] Calcium 9.3 8.5 - 10.5 mg/dL [facility] Protein, Total 7.7 6.1 - 8.0 gm/dL [facility] Albumin 4.0 3.2 - 5.2 gm/dL [facility] Aspartate Aminotransferase 23 0 - 30 unit/L [facility] Alanine Aminotransferase 23 0 - 30 unit/L [facility] Alkaline Phosphatase 109(H) 40 - 104 unit/L [facility] Bilirubin, Total 0.5 0.2 - 1.3 mg/dL [facility] Bilirubin, Direct 0.1 0.0 - 0.3 mg/dL [facility] Est Glomerular Filtration Rate >60 >=60 [facility] Comment: This estimated GFR (eGFR) value [...] the following links into your internet browser. [email or web address] Blood specimen (specimen) 03/12/2016 10:34 AM EDT 03/12/2016 12:25 PM EDT Narrative Resulting Agency Comment Spec In Lab Katie Ervin MD CHEMISTRY ORDERABLES [facility] [place] [address] * (ABNORMAL) POCT urine dipstick (03/12/2016 9:00 AM EDT) POC Sp [place] 1.015 1.002 - 1.030 POC pH, UA 5 [...] neg Negative - Negative POC Blood, UA trace Negative - Negative greg/uL 03/12/2016 9:00 AM EDT Katie Ervin MD POINT OF CARE TEST O RDERABLES documented in this encounter Visit Diagnoses Diagnosis Rectal bleed Hemorrhage of rectum and anus Lower abdominal pain Abdominal pain, other specified site Fibromyalgia Mylagia and myositis, unspecified Rectal bleed Hemorrhage of rectum and anus Lower abdominal pain Abdominal pain, other specified site documented in this encounter Care Teams Fashion Adviser Relationship Specialty Start Date End Date Nubia Conley APRN [facility] GENER[place] [address] PCP - General 01/16/14 01/28/19 documented as of this encounter
--- OUTSIDE RECORDS SUMMARY | 2024-04-03 16:06 | XMS_ITS | Encounter Summary ---
Author Organization [facility] [place] [address] Care Team Providers Care Cork Insulator Helper Name Role Phone RosmeryNubia ferreira John VEGA Primary Care Provider + Reason for Visit * Reason Onset Date Comments Medication Problem 01/16/2016 Encounter Details Date Type Department Care Team (Late st Contact Info) Description 01/16/2016 Telephone Internal Medicine at [address] [address] Nubia Botello, GARY [facility] [place] [address] Medication Problem Social History Tobacco Use Types Packs/Day Years [...] encounter Miscellaneous Notes * Telephone Encounter - Roxane Bland - 01/16/2016 11:28 AM EDT Patient called at 11:25 to say that her new script for gabapentin which was generated at her appointment today is incorrect and needs to be changed to one - 300 mg capsule in the morning, one in the afternoon and two at night, for a total of 1200 mg. Please fax or e-prescribe new script to Varun in [facility]. documented in this encounter Plan of Treatment Not on file documented as of this encounter Visit Diagnoses Diagnosis Elevated C-reactive protein (CRP) documented in this encounter Care Teams Cork Insulator Helper Relationship Specialty Start Date End Date Nubia Botello APRN [facility] [address] [place] [address] PCP - General 01/16/14 01/28/19 documented as of this encounter
--- OUTSIDE RECORDS SUMMARY | 2024-04-03 16:06 | XMS_ITS | Encounter Summary ---
Author Organization [facility] [place] [address] Care Team Providers Care Assistant Professor Of Archaeology Name Role Phone Nubia Botello APRN Primary Care Provider + Reason for Visit * Reason Onset Date Comments Results 01/27/2016 Encounter Details Date Type Department Care Team (Late st Contact Info) Description 01/27/2016 Telephone Internal Medicine at [address] [address] Viky Robbins Results Social History [...] Telephone Encounter - Yuki Galdamez RN - 01/27/2016 12:34 PM EDT Results given. Nubia will review also * Telephone Encounter - Viky Robbins - 01/27/2016 10:59 AM EDT Nancy trujillo would like to speak with RN regarding her lab results done on 01-23-16. [phone] Viky documented in this encounter Plan of Treatment Not on file documented as of this encounter Visit Diagnoses Not on filedocumented in this encounter Care Teams Assistant Professor Of Archaeology Relationship Specialty Start Date End Date Nubia Botello APRN [facility] [address] GENERAL [address] [address] PCP - General 01/16/14 01/28/19 documented as of this encounter
--- OUTSIDE RECORDS SUMMARY | 2024-04-03 16:06 | XMS_ITS | Encounter Summary ---
Author Organization [facility] [place] [address] Care Team Providers Care Salary Manager Name Role Phone Nubia Conley APRN Primary Care Provider + Reason for Visit * Reason Comments Annual Exam Encounter Details Date Type Department Care Team (Late st Contact Info) Description 11/24/2015 4:20 PM EDT Office Visit Internal Medicine at [address] [address] Nubia Conley APRN [facility] [address] Health care maintenance (Primary Dx); Chronic low back pain without sciatica, unspecified back pain laterality; Screening cholesterol level; Need for pneumococcal vaccine; Elevated blood pressure Social History Tobacco Use Types Packs/Day Years [...] Sign Reading Time Taken Comments Blood Pressure 152/84 11/24/2015 4:16 PM EDT Pulse 76 11/24/2015 4:16 PM EDT Temperature 36.8 ??C (98.3 ??F) 11/24/2015 4:16 PM ED T Respiratory Rate 14 11/24/2015 4:16 PM EDT Oxygen Saturation 98% 11/24/2015 4:16 PM EDT Inhaled Oxygen Concentration - - Weight 100.5 kg (221 lb 9.6 oz) 11/24/2015 4:16 PM EDT Height 159.8 cm (5' 2.91) 11/24/2015 4:16 PM ED T Body Mass Index 39.36 11/24/2015 4:16 PM EDT documented in this encounter Progress Notes * Nubia Conley APRN - 11/24/2015 4:30 PM EDT PCP: NUBIA CONLEY APRN SUBJECTIVE: 49 y.o. female presents for annual exam. Chronic Pain- she reports that pain is in her back, her shoulder and in her hands. Pain is worse inher hands. Pain in her back and her hips. She reports that leg pain will be down to her ankles. Notrelieved with certain position. She has been taking advil and tylenol for the pain. Headaches- starting at the base of her skull. Bilateral, no relief. She will have occasional migraine with aura (tunnel vision). She has tried naproxen and that has not helped the pain. Back pain has been worse recently. DIET- not healthy, has to skip meals at times because she is busy. She drinks a lot of regular sodaand coffee. SLEEP- poor because of pain and busy schedule. EXERCISE- No regular exercise. LIPID SCREENING- due, will order COLONOSCOPY- UTD PAP SMEAR- not indicated TDAP-is up to date FLU- recommended and UTD SHINGLES- due at age 62 PNEUMOCOCCAL- due today Health Maintenance Due Topic Date Due ??? Lipid Screening 12/04/1985 ??? HIV one time screen 12/04/1985 ??? Pneumo Increased Risk (1 of 1 - PPSV23) 12/04/1986 ??? Influenza (Flu) vaccine (1 of 1 - Influenza Standard Series) 02/22/2015 History Smoking Status ??? Current Every Day Smoker ??? Packs/day: 0.50 ??? Types: Cigarettes Smokeless Tobacco ??? Never Used myD-H Primary Care 11/24/2015 PROMIS 10-Health in general Good PROMIS 10-Quality of life Good PROMIS 10-Physical health Good PROMIS 10-Mental health Good PROMIS 10-Satisfaction with social activities Good PROMIS 10-Ability to carry out social activities Good PROMIS 10-Ability to carry out physical activities Mostly PROMIS 10-Bothered by emotional problems Sometimes PROMIS 10-Rate of fatigue Moderate PROMIS 10-Rate of pain 7 PROMIS 10- Physical Health Score 39.8 PROMIS 10- Mental Health Score 43.5 REVIEW OF SYSTEMS 11/24/2015 Constitutional Fatigue, lack of energy, Pain Ear / nose / throat / mouth None of the above Eyes None of the above Respiratory None of the above Cardiovascular Swelling of arms, Swelling of legs Gastrointestinal Diarrhea, Appetite problems Skin, hair None of the above Musculoskeletal Joint stiffness, Back pain, Joint pain, Muscle stiffness Neurological Headaches, Numbness, tingling Hematologic / Lymphatic None of the above Genitourinary None of the above PC Q - ADLS/IADLS/FALL 04/21/2013 Activity - low level Getting in or out of chairs, Walking ADLS Help I could use a little more help Activity - high level No, I do not have difficulty with these activities Fallen in last year No Difficulties with balance or walking Yes Breast Cancer Risk (HUSSEIN) Scores 11/24/2015 Lifetime Risk of Patient 8.4 Average Lifetime Risk 11.6 5-Year Risk of Patient 0.8 Average 5-Year Risk 1.1 Recommend Genetic Risk Assessment w/B-RST 0 (If meets USPSTF BRCA testing guideline) PHQ-9 QUESTIONNAIRE (AMB) 11/24/2015 PHQ - 9 Score (Clinic) - PHQ - 9 Score (Patient) 3 (Minimal Depression) Little interest or pleasure (Clinic) - Little interest or pleasure (Patient) Not at all Down, depressed, hopeless (Clinic) - Down, depressed, hopeless (Patient) Not at all Trouble sleeping (Clinic) - Trouble sleeping (Patient) Several days Tired or no energy (Clinic) - Tired or no energy (Patient) Several days Poor appetite or overeating (Clinic) - Poor appetite or overeating (Patient) Several days Feeling like a failure (Clinic) - Feeling like a failure (Patient) Not at all Trouble concentrating (Clinic) - Trouble concentrating (Patient) Not at all Moving or speaking slowly (Clinic) - Moving or speaking slowly (Patient) Not at all Would be better off (Clinic) - Would be better off (Patient) Not at all How difficult are the problems (Clinic) - Patient Active Problem List Diagnosis Code ??? Depression F32.9 ??? Irritable bowel syndrome K58.9 ??? GERD (gastroesophageal reflux disease) K21.9 ??? Peptic ulcer disease K27.9 ??? Migraines G43.909 ??? Elevated blood pressure I10 ??? Body mass index (BMI) of 39.0-39.9 in adult Z68.39 ??? Low back pain M54.5 Current Outpatient Prescriptions Medication Sig Dispense Refill ??? albuterol (PROAIR HFA) 90 mcg/actuation HFA [...] mouth every 6 hours as needed. ??? hydrochlorothiazide (MICROZIDE) 12.5 mg Capsule TAKE ONE CAPSULE BY MOUTH DAILY (Patient not taking: Reported on 11/24/2015) 90 capsule 0 No current facility-administered medications for this visit. Allergies Allergen Reactions ??? Latex Skin cracks and bleeds ??? Penicillins Rash Physical Exam: Vitals: 11/24/15 1616 BP: 152/84 BP Location (NBP): Right arm Patient Position: Sitting BP Cuff Sizes: Adult (25-34 cm) Pulse: 76 Resp: 14 Temp: 36.8 ??C (98.3 ??F) TempSrc: Oral SpO2: 98% Weight: 100.5 kg (221 lb 9.6 oz) Height: 159.8 cm (5' 2.91) Body mass index is 39.36 kg/(m^2). Physical Exam Constitutional: She is oriented to [...] behavior is normal. Judgment and thought contentnormal. Assessment/Plan: Nancy was seen today for annual exam. Diagnoses and all orders for this visit: Health care maintenance - will do fasting labs. - patient due for pneumococcal vaccine today - f/u in about a month for chronic pain Chronic low back pain without sciatica, unspecified back pain laterality Orders: - oxyCODONE (ROXICODONE) 5 mg Tablet; Take 1 tablet by mouth nightly as needed for Pain. - pregabalin (LYRICA) 75 mg Capsule; Take 1 capsule by mouth 2 times daily. - chronic pain, ? Chronic pain syndrome or fibromyalgia. Will try treating with pregabalin to see if will help with pain. - will give only small amount of oxycodone, not meant for refill. Screening cholesterol level Orders: - Lipid panel (fasting); Future Need for pneumococcal vaccine Orders: - Pneumococcal polysaccharide vaccine 23-valent greater than or equal to 2yo subcutaneous/IM Elevated blood pressure Orders: - hydrochlorothiazide (MICROZIDE) 12.5 mg Capsule; Take 1 capsule by mouth daily. Other orders -Discussed Health Safety- including seatbelt use, sunscreen use, avoiding distracted driving, and helmet use. documented in this encounter Plan of Treatment Not on file documented as of this encounter Results * (ABNORMAL) Lipid panel (fasting) (12/22/2015 10:01 AM EDT) [facility] Signature Cholesterol, Total 186 <=199 mg/dL [facility] Comment: Recommendations of the NCEP Adult Treatment Panel for the following risk cutoff thresholds for the [place] population: Desirable: <200 mg/dL Borderline High: 200-239 mg/dL High: > or = 240 mg/dL Triglyceride 551(H) <=149 mg/dL [facility] Comment: Reference Range: Normal triglycerides: ??<150 mg/dL Borderline high: ??150-199 mg/dL High: ??200-499 mg/dL Very high: ??>bs=038 mg/dL DANIELLE 2001; 285(19):1022-0582 HDL Cholesterol 30(L) >=40 mg/dL [facility] Comment: Reference range: ??Low HDL: ?? < 40 mg/dL ??Normal: ?40-60 mg/dL ??Desirable: > 60 mg/dL DANIELLE 2001; 285(19):1764-3178 LDL Cholesterol Not Calculated <=99 mg/dL [facility] Comment: Since a calculated LDL value is not valid for triglycerides greater than 400 mg/dl, a direct LDL determination is performed instead. Reference range: ?? Optimal: ?<100 mg/dL ?? Near Optimal/Above Optimal: ?? 100-129 mg/dL ?? Borderline high: ?130-159 mg/dL ?? High: ? 160-189 mg/dL ?? Very high: ?>tr=775 mg/dL DANIELLE 2001: 285(19):7442-3130 Cholesterol/HDL Ratio 6.2 ratio [facility] Comment: A Cholesterol to HDL ratio below 4:1 is desirable. ??Studies suggest that increased CAD risk occurs at ratios above 5 for females and above 6 for men. ? [place] Heart Association ??(http://www.americanheart.org) ? Monse Int Med, 1994; 121:641 ? AM J Med, 1998; 105(1A):48S Blood specimen (specimen) 12/22/2015 10:01 AM EDT 12/22/2015 12:27 PM EDT Narrative Resulting Agency Comment Spec In Lab Vamsi Bey MD CHEMISTRY ORDERABLES [facility] [place] [address] documented in this encounter Visit Diagnoses Diagnosis Health care maintenance- Primary Unspecified general medical examination Chronic low back pain without sciatica, unspecified back pain laterality Screening cholesterol level Screening for lipoid disorders Need for pneumococcal vaccine Need for prophylactic vaccination against streptococcus pneumoniae (pneumococcus) Elevated blood pressure Elevated blood pressure reading without diagnosis of hypertension documented in this encounter Care Teams Salary Manager Relationship Specialty Start Date End Date Nubia Conley, PLUG OVERWRAP MACHINE TENDER [facility] [address] [place] [address] PCP - General 01/16/14 01/28/19 documented as of this encounter
--- OUTSIDE RECORDS SUMMARY | 2024-04-03 16:07 | XMS_ITS | Encounter Summary ---
Author Organization [facility] Address [facility] [place] [address] Care Team Providers Care Operational Review Sergeant Name Role Phone Nubia Botello APRN Primary Care Provider + Reason for Visit * Reason Comments Back Pain Encounter Details Date Type Department Care Team (Late st Contact Info) Description 08/09/2014 5:34 AM EST - 08/09/2014 5:35 PM EST [place] [address] Reece Devine MD [facility] [place] [address] Arvind Munoz MD [facility] [place] [address] Midline low back pain with sciatica, sciatica laterality unspecified Discharge Disposition: Home Social History Tobacco Use Types Packs/Day Years Used Date Smoking Tobacco: Every Day Cigarettes Alcohol Use Standard Drinks/Week Comments No 0 (1 standard drink = 0.6 oz pur e alcohol) Sex and Gender Information Value Date Recorded Sex Assigned at Not on file Gender Identity Not on file Sexual Orientation Not on file documented as of this encounter Last Filed Vital Signs Vital Sign Reading Time Taken Comments Blood Pressure 178/86 08/09/2014 5:39 AM EST Pulse 80 08/09/2014 5:39 AM EST Temperature 36.7 ??C (98.1 ??F) 08/09/2014 5:39 AM ES T Respiratory Rate 18 08/09/2014 5:39 AM EST Oxygen Saturation 98% 08/09/2014 5:39 AM EST Inhaled Oxygen Concentration - - Weight - - Height - - Body Mass Index - - documented in this encounter Discharge Instructions * Discharge Instructions* Israel Peres - 08/09/2014 6:07 AM EST You were seen in the ER for back pain. We believe it is safe for you to go home now, but no evaluation is perfect. It is very important that if you are becoming more ill, have new or worsening symptoms, or any other concerns you should return to the Emergency Department ( or the nearest Emergency Department ) for evaluation. You should follow up with your doctor in 3 days. documented in this encounter Medications at Time of Discharge Medication Sig Dispensed Refills Start Date End Date acetaminophen (TYLENOL) 500 mg tablet Take 1,000 mg by mouth every 6 hours as needed. cyclobenzaprine (FLEXERIL) 10 mg Tablet Take 1 tablet by mouth 3 times daily as needed for Muscle spasms. No driving, no alcohol 20 tablet 0 08/09/2014 08/12/2014 diaZEPam (VALIUM) 5 mg Tablet Take 1 tablet by mouth nightly as needed for Anxiety (spasm) for up to 6 days. 6 tablet 0 08/09/2014 08/12/2014 HYDROcodone-acetaminoph en 5-325 mg Tablet Take 1 tablet by mouth every 6 hours as needed for Pain. 30 tablet 0 08/09/2014 08/12/2014 predniSONE (DELTASONE) 20 mg Tablet Take 3 tablets by mouth daily for 4 days. 12 tablet 0 08/10/2014 08/12/2014 ibuprofen (ADVIL;MOTRIN) 600 mg tablet Take 600 mg by mouth every 6 hours as needed. 08/12/2014 albuterol (PROAIR HFA) 90 mcg/actuation inhaler Inhale 2 puffs into the lungs every 4 hours as needed for Wheezing. Use with spacer 1 Inhaler 1 07/20/2013 04/08/2015 documented as of this encounter ED Notes * Reece Devine MD - 08/09/2014 6:33 AM EST Nancy Diego is an 48 y.o. who presents to the ED with cc: Back Pain I saw this patient at 0545. Brief Attending Note I cared for the patient with the resident physician. Please see Dr. Peres's note, associated with the encounter, for more details. HPI Nancy Diego is a 48 y.o. who presents to the Emergency Department back pain. 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 The patient describes the pain as achy in character. The patient describes the pain as moderate to severe in intensity. The pain has not been associated withbladder or bowel incontinence, focal weakness or numbness, perianal/ genital numbness, fever, dysuria. The patient has tried motrin and tylenol for the pain and has experienced some relief. ROS Pertinent positives and negatives are included in the HPI and all other systems are reviewed and negative. Physical Exam I reveiwed the nursing notes and vital signs. General: No acute distress HENT: Atraumatic Eyes: No scleral icterus Chest: CTA edilma Cardiac: Nl S1S2 s m/g/r Abd: Soft, nt Skin: No rashes, no ecchymoses Neuro: 5/5 sym str; sensation intact throughout - including inner thighs and perineum; antalgic gait; normal balance. M/S: No spinal ttp, +ttp and spasm to edilma paraspinous muscles. Psych: Normal mood and thought Assessment and Plan Clinical Impression: I considered the emergency causes of back pain for this patient. she denies any numbness to the saddle or perineum, weakness (although there are limits 2/2 pain), incontinence ofbladder or bowels, dysuria, hematuria, hematochezia, fever, or IVDU. Even though there is no evidence of emergency back pain at the time of visit. I have carefully explained all of these symptoms to the patient. I have asked her to return to this or the nearest emergency room immediately if she develops any of these symptoms. Plan: Pt will be d/c'd home with valium, prednisone, and vicodin. she will follow up with her PCP within the week for a recheck and if the pain persists will discuss a MRI. ED Course Medications and fluids administered: ibprofen. Reece Devine MD 08/09/14 0646 * Kadeem Rosario RN - 08/09/2014 6:[address] Devine speaking with pt. * Israel Peres - 08/09/2014 5:51 AM EST Chief Complaint Patient presents with ??? Back Pain REBEKAH Diego is a 48 y.o. female with a PMH significant for low back pain who presents with low back pain. 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 Since then she has alternated both Tylenol and ibuprofen without much relief. Reports exacerbation with movement. Denies history of aortic abdominal aneurysm. Denies IV drug use. Denies fevers, urinary retention, stool incontinence, and urinary incontinence. Denies weakness and numbness the lower extremities. Reports radiation down the posterior aspect of both legs to her knees. Allergies Allergen Reactions ??? Latex Skin cracks and bleeds ??? Penicillins Rash Review of Systems Constitutional: Negative for fever. Respiratory: Negative for shortness of breath. Cardiovascular: Negative for chest pain. Gastrointestinal: Negative for nausea and vomiting. Genitourinary: Negative for dysuria. Musculoskeletal: Positive for back pain. Physical Exam Constitutional: She is oriented to person, place, and time. She appears well- developed. No distress. Eyes: Conjunctivae are normal. Right eye exhibits no discharge. Left eye exhibits no discharge. Musculoskeletal: paraspinal lumbar tenderness appreciated Neurological: She is alert and oriented to person, place, and time. Normal gait 5 out of 5 strength in the bilateral lower extremities Sensory intact the bilateral lower extremities Skin: Skin is warm and dry. She is not diaphoretic. Psychiatric: She has a normal mood and affect. Her behavior is normal. Nursing note and vitals reviewed. Procedures [facility] Nancy Diego is a 48 y.o. female with a PMH significant for Low back pain who presents with Low back pain. On exam her vitals are within normal limits. Physical exam significant for paraspinal lumbartenderness. No focal neurological deficits appreciated. I considered epidural abscess, cauda equina, and AAA. Npthing on history and physical exam to suggest epidural abscess, cauda equina or AAA. She was given 800 mg of ibuprofen while in the ED. Out patient management consisted of 7 pills of 5 mgof valium, vicodin, and a prednisone burst. She was felt to be safe for discharge with return precautions and follow up with her PCP. Israel Peres DO Resident 08/09/14 0647 Associated attestation - Reece Devine MD - 08/09/2014 6:47 AM EST ED ATTENDING ATTESTATION The patient was seen in conjunction with Dr. Peres, the resident physician. I have independently performed the perkins portions of the history and physical exam. I have personally reviewed nursing notes, vital signs, and diagnostic studies including labs, imaging studies and EKGs. I have discussed the details of the case with the resident and agree with the assessment and plan as described in the resident note unless stated differently in my separate note. * Kadeem Rosario RN - 08/09/2014 5:[address] Peres examining pt. documented in this encounter Miscellaneous Notes * ED Triage - Kadeem Rosario RN - 08/09/2014 5:39 AM EST C/o mid to lower back pain with numbness radiating down left leg. No dysuria. States she is having frequent loose stools. Appears very uncomfortable. documented in this encounter Plan of Treatment Not on file documented as of this encounter Procedures Procedure Name Priority Date/Time Associated Diagnosis Comments POCT URINE DIPSTICK STAT 08/09/2014 6 :12 AM EST documented in this encounter Results * POCT urine dipstick (08/09/2014 6:12 AM EST) POC Sp [place] 1.015 1.002 - 1.030 POC pH, UA 5 5.0 - 8.5 POC Leuk, UA negative Negative - Negative POC Nitrite, UA negative Negative - Negative POC Protein, UA 30 Negative - Negative mg/dL POC Glucose, UA normal Normal - Normal mg/dL POC Ketone, UA negative Negative - Negative POC Urobil, UA normal 0.2 - 1.0 mg/dL POC Bili, UA negative Negative - Negative POC Blood, UA +++250 Negative - Negative greg/uL 08/09/2014 6:12 AM EST Reece Devine MD POINT OF CARE TEST O YANI documented in this encounter Visit Diagnoses Diagnosis Midline low back pain with sciatica, sciatica laterality unspecified documented in this encounter Administered Medications Inactive Administered Medications - up to 3 most recent administrations Medication Order MAR Action Action Date Dose Rate Site ibuprofen (ADVIL;MOTRIN) tablet 800 mg 800 mg, Oral, ONCE, 1 dose, On Sat08/09/14 at 0550, Administer orally with milk or food to minimize GI irritation, STAT Given 08/09/2014 5:50 AM EST 800 mg documented in this encounter Active and Recently Administered Medications Times are shown in EST. Scheduled Medication Order 08/07/2014 08/08/2014 08/09/2014 ibuprofen (ADVIL;MOTRIN) tablet 800 mg (COMPLETED) 800 mg, Oral, ONCE, 1 dose, On Sat08/09/14 at 0550, Administer orally with milk or food to minimize GI irritation, STAT 0550 (Given - Provid er: Kadeem Rosario RN) documented in this encounter Care Teams Operational Review Sergeant Relationship Specialty Start Date End Date Nubia Botello APRN [facility] [address] [address] PCP - General 01/16/14 01/28/19 documented as of this encounter
--- OUTSIDE RECORDS SUMMARY | 2024-04-03 16:07 | XMS_ITS | Encounter Summary ---
Author Organization [facility] Address [facility] [place] [address] Care Team Providers Care Greenskeeper Supervisor Name Role Phone RosmeryNubia ferreira SIPHONER Primary Care Provider + Encounter Details Date Type Department Care Team (Late st Contact Info) Description 10/03/2000 Orders Only Radiology and Cardiology Results [address] [place] [address] Apd Conversion, Results Provider, Social History Tobacco Use Types Packs/Day Years Used Date Smoking Tobacco: Never Assessed Sex and Gender Information Value Date Recorded Sex Assigned at Not on file Gender Identity Not on file Sexual Orientation Not on file documented as of this encounter Plan of Treatment Not on file documented as of this encounter Procedures Procedure Name Priority Date/Time Associated Diagnosis Comments MEASLES (RUBEOLA) ANTIBODY, IGG Routine 10/03/2000 10:50 AM EDT documented in this encounter Results * (ABNORMAL) Measles (Rubeola) Antibody, IgG (10/03/2000 10:50 AM EDT) Rubella Antibody IgG 1.52(Exter nal Lab) TVT SARAH WALSH CONVERSION 10/03/2000 10:5 0 AM EDT Results Provider Apd Conversion IMMUN OLOGY ORDERABLES SARAH WALSH CONVERSION documented in this encounter Visit Diagnoses Not on filedocumented in this encounter Care Teams Greenskeeper Supervisor Relationship Specialty Start Date End Date Nubia Botello, SIPHONER [facility] [address] [place] [address] PCP - General 01/16/14 01/28/19 documented as of this encounter
--- OUTSIDE RECORDS SUMMARY | 2024-04-03 16:07 | XMS_ITS | Encounter Summary ---
Author Organization [facility] Address [facility] [place] [address] Care Team Providers Care It Security Consultant Name Role Phone Nubia Botello REPAIRER SWITCHGEAR Primary Care Provider + Encounter Details Date Type Department Care Team (Late st Contact Info) Description 10/03/2000 Orders Only Radiology and Cardiology Results [address] [place] [address] Apd Conversion, Results Provider, Social [...] Procedure Name Priority Date/Time Associated Diagnosis Comments VARICELLA ZOSTER ANTIBODY, IGG Routine 10/03/2000 10:50 AM EDT documented in this encounter Results * (ABNORMAL) Varicella zoster Antibody, IgG (10/03/2000 10:50 AM EDT) Varicella Zoster Antibody IgG > 260(ExtH) 0 - 10 EIA unit SARAH WALSH CONVERSION 10/03/2000 10:5 0 AM EDT Results Provider Apd Conversion IMMUN OLOGY ORDERABLES SARAH ALIRIO WALSH CONVERSION documented in this encounter Visit Diagnoses Not on filedocumented in this encounter Care Teams It Security Consultant Relationship Specialty Start Date End Date Nubia Botello, REPAIRER SWITCHGEAR [facility] [address] [address] PCP - General 01/16/14 01/28/19 documented as of this encounter
--- OUTSIDE RECORDS SUMMARY | 2024-04-03 16:07 | XMS_ITS | Encounter Summary ---
Author Organization Formerly [facility] [place] [address] Care Team Providers Care Jukebox Checker Name Role Phone Rosmery Nubia Lopez APRN Primary Care Provider + Encounter Details Date Type Department Care Team (Late st Contact Info) Description 08/12/2014 Orders Only Internal Medicine at [address] [address] Ramandeep Durant Social History Tobacco Use Types Packs/Day Years [...] on filedocumented in this encounter Care Teams Jukebox Checker Relationship Specialty Start Date End Date Nubia Botello APRN [facility] [place] [address] PCP - General 01/16/14 01/28/19 documented as of this encounter
--- OUTSIDE RECORDS SUMMARY | 2024-04-03 16:07 | XMS_ITS | Encounter Summary ---
Author Organization [facility] [place] [address] Care Team Providers Care Head Esthetician Name Role Phone None Primary Care Provider Unavailabl e Reason for Referral * Consultation (Routine) - Closed Specialty Diagnoses / Procedures Referred By Contac t Referred To Contact Internal Medicine Diagnoses Strep pharyngitis Laurent Esteves MD [facility] [place] [address] [address] Referral ID Status Reason Start Date Expiration Date V isits Requested Visits Authorized [id number] Closed Assume Subset of Care 04/13/2013 10/10/2013 1 1 Reason for Visit * Reason Comments Throat Pain Encounter Details Date Type Department Care Team (Late st Contact Info) Description 04/13/2013 6:13 AM EDT - 04/13/2013 6:54 AM EDT Emergency Emergency [place] [address] Laurent Esteves MD [facility] [address] Strep pharyngitis; HTN (hypertension) Discharge Disposition: DP-Discharged Social History Tobacco Use Types Packs/Day Years [...] Sign Reading Time Taken Comments Blood Pressure 159/77 04/13/2013 6:21 AM EDT Pulse 92 04/13/2013 6:21 AM EDT Temperature 36.7 ??C (98.1 ??F) 04/13/2013 6:21 AM ED T Respiratory Rate 20 04/13/2013 6:21 AM EDT Oxygen Saturation 98% 04/13/2013 6:21 AM EDT Inhaled Oxygen Concentration - - Weight - - Height - - Body Mass Index - - documented in this encounter Discharge Instructions * Discharge Instructions* Laurent Esteves MD - 04/13/2013 6:43 AM EDT Azithromycin once a day for 4 days. For your pain you can take ibuprofen 600 mg by mouth 4 times a day. If this is not enough you may add Tylenol (acetaminophen) 1-2 pills by mouth up to four times a day to the ibuprofen. Remember thatibuprofen may cause some stomach upset and that taking it with some bland food might help. Tylenol if taken in excess can be very toxic so do not take more than 1 gram (2 x 500 mg pills - they come as 350 mg and 500 mg pills) per dose and not more than a total of 4 grams a day. Many other preparations have acetaminophen included so make sure your total dose does not exceed the limit. He should be fever free when you go back to work. Warm salt water gargles. Chloraseptic spray as needed. You need to have a PCP. This is important for your overall healthcare and will be much less expensive for you in the long run as well. Your new PCP will be able to follow you up for your current problem. In addition your PCP should help coordinate your care and any specialist referrals that you might need and can often see you the same day for acute illnesses which saves you from long waits in the ED. I have put through a referral to our general internal medicine department. If they have not called you in a few days then you should call [phone] to get a new PCP (or you can get recommendations from friends or look up a private physician in the phonebook). This is important. Return for significant changes. * Attachments The following attachments cannot be sent through Care Everywhere. * STREP THROAT: AFTER YOUR VISIT (SUDANESE) documented in this encounter Medications at Time of Discharge Medication Sig Dispensed Refills Start Date End Date azithromycin (ZITHROMAX) 250 mg tablet Take 1 tablet by mouth daily for 4 days. Day1:take 2 tablets daily, Day 2-5:Take one tablet daily 4 tablet 0 04/14/2013 04/18/2013 documented as of this encounter ED Notes * Laurent Esteves MD - 04/13/2013 6:47 AM EDT Chief Complaint Patient presents with ??? Throat Pain The history is provided by the patient. 47-year-old female presents to the emergency department complaining of not feeling well for 2-3 days. This started with a cough. As things progressed it became mostly a sore throat and she developed difficulty swallowing. She noticed this starting Saturday morning. She also has both of her ears aching. Starting yesterday she has felt feverish on and off. She has been taking Tylenol. Despite difficulty swallowing she is able to do so. She does not note any neck swelling. She has no headache. No difficulty breathing or wheezing. Allergies Allergen Reactions ??? Penicillins Rash Review of Systems Constitutional: Negative for fever, chills and unexpected weight change. HENT: Negative for congestion, neck pain and tinnitus. Eyes: Negative for photophobia and visual disturbance. Respiratory: Negative for cough and wheezing. Cardiovascular: Negative for chest pain and palpitations. Gastrointestinal: Negative for nausea, abdominal pain, diarrhea, constipation and blood in stool. Genitourinary: Negative for dysuria, frequency and difficulty urinating. Musculoskeletal: Negative for myalgias and arthralgias. Neurological: Negative for dizziness, light-headedness and numbness. Hematological: Negative for adenopathy. Does not bruise/bleed easily. Physical Exam Constitutional: She is oriented to person, place, and time. She appears well- developed and well-nourished. HENT: Head: Normocephalic and atraumatic. Mouth/Throat: Uvula is midline and mucous membranes are normal. Posterior oropharyngeal erythema present. No tonsillar abscesses. Small apthus ulcers on the soft, approximately 6 of them. Eyes: Conjunctivae normal and EOM are normal. Pupils are equal, round, and reactive to light. Neck: Normal range of motion. Neck supple. Non tender Cardiovascular: Normal rate, regular rhythm, normal heart sounds and intact distal pulses. Pulmonary/Chest: Effort normal and breath sounds normal. Abdominal: Soft. Bowel sounds are normal. There is no tenderness. There is no CVA tenderness. Benign Musculoskeletal: Normal range of motion. She exhibits no tenderness. Lymphadenopathy: She has no cervical adenopathy. Neurological: She is alert and oriented to person, place, and time. Non focal with normal dexterity Skin: Skin is warm and dry. No rash noted. Psychiatric: She has a normal mood and affect. Procedures MDM Number of Diagnoses or Management Options Strep pharyngitis: new, needed workup Amount and/or Complexity of Data Reviewed Clinical lab tests: ordered and reviewed Risk of Complications, Morbidity, and/or Mortality Presenting problems: moderate Diagnostic procedures: minimal Management options: low Patient Progress Patient progress: stable ED Course: Patient seen and history obtained. Patient examined. Patient had small ulcers on the soft palate was consistent with a viral infection however she had marked tonsillar erythema but no significant swelling. A rapid strep test was done and was positive. There is no anterior neck swelling or findings consistent with an abscess so I felt comfortable discharging her home on antibiotics. She is penicillin allergic so I treated her with her first dose ofazithromycin in the emergency department and wrote a prescription for 4 more pills. She has no PCP so I referred her to [facility] via computer. I discussed smoking cessation with her for at least 3 minutes. She is not ready to quit. She has untreated hypertension and I urged her to follow this up and begin treatment. Assessment: #1 strep pharyngitis #2 hypertension The patient was informed of our impression and current diagnosis. They were given an opportunity tohave their questions answered. They were provided with the relevant discharge instruction set. I discussed signs and symptoms to expect, what to watch for, and what should cause them to return immediately. We also discussed recommendations with respect to need and timing of outpatient follow-up. This note was created using [employer] voice recognition software. Laurent Esteves MD 04/13/13 0651 Laurent Esteves MD 04/13/13 0652 documented in this encounter Miscellaneous Notes * Miscellaneous - Provider, Scanning - 04/13/2013 2:43 PM EDT * ED Triage - Dilcia Dias RN - 04/13/2013 6:22 AM EDT Pt c/o sore throat, cough, fever and not feeling well for a few days. Pt has had a productive coughwith green sputum. Denies SOB. Lungs are clear to air bilaterally. Skin is pale, warm, dry and intact. Afebrile. Last dose of Tylenol was before bed last night. documented in this encounter Plan of Treatment Scheduled Referrals Name Type Priority Associated Diagnoses Orde r Schedule Referral to General Internal Medicine Outpatient Referral Routine Strep pharyngitis Ordered: 04/13/2013 documented as of this encounter Procedures Procedure Name Priority Date/Time Associated Diagnosis Comments POCT RAPID STREP A STAT 04/13/2013 6: 30 AM EDT documented in this encounter Results * POCT rapid strep A (04/13/2013 6:30 AM EDT) POC Grp A Strep Positive Negative - Negative POC Control Internal Controls Acceptable Laurent Esteves MD POINT OF CARE TEST O RDERABLES documented in this encounter Visit Diagnoses Diagnosis Strep pharyngitis Streptococcal sore throat HTN (hypertension) Unspecified essential hypertension documented in this encounter Administered Medications Inactive Administered Medications - up to 3 most recent administrations Medication Order MAR Action Action Date Dose Rate Site azithromycin (ZITHROMAX) tablet 500 mg 500 mg, Oral, ONCE, 1 dose, On Sat04/13/13 at 0700, STAT, Indication for (Active or Suspected): Other (See Comment) / strep and PCN allergy Given 04/13/2013 6:54 AM EDT 500 mg documented in this encounter Active and Recently Administered Medications Times are shown in EDT. Scheduled Medication Order 04/11/2013 04/12/2013 04/13/2013 azithromycin (ZITHROMAX) tablet 500 mg (COMPLETED) 500 mg, Oral, ONCE, 1 dose, On Sat04/13/13 at 0700, STAT, Indication for (Active or Suspected): Other (See Comment) / strep and PCN allergy 0654 (Given - Provid er: Dilcia Dias RN) documented in this encounter Care Teams Head Esthetician Relationship Specialty Start Date End Date None None PCP - General 03/01/13 04/20/13 documented as of this encounter
--- OUTSIDE RECORDS SUMMARY | 2024-04-03 16:07 | XMS_ITS | Encounter Summary ---
Author Organization [facility] [place] [address] Care Team Providers Care Receptionist Clerk Name Role Phone None Primary Care Provider Unavailabl e Reason for Referral * Consultation (Routine) - Declined by Patient Specialty Diagnoses / Procedures Referred By Contac t Referred To Contact Internal Medicine Bonifacio Laird PA [facility] [place] [address] [address] Referral ID Status Reason Start Date Expiration Date Visits Requested Visits Authorized [id number] Declined by Patient Assume Subset of Care 03/01/2013 08/28/2013 1 1 Reason for Visit * Reason Comments Dental Pain Encounter Details Date Type Department Care Team (Late st Contact Info) Description 03/01/2013 1:14 PM EDT - 03/01/2013 2:28 PM EDT [place] [phone] Bonifacio Laird PA [facility] [place] [address] Chandra Duncan MD [facility] [place] [address] Dental infection (Primary Dx) Discharge Disposition: Home Social History Tobacco Use Types Packs/Day Years Used Date Smoking Tobacco: Every Day Alcohol Use Standard Drinks/Week Comments No 0 (1 standard drink = 0.6 oz pur e alcohol) Sex and Gender Information Value Date Recorded Sex Assigned at Not on file Gender Identity Not on file Sexual Orientation Not on file documented as of this encounter Last Filed Vital Signs Vital Sign Reading Time Taken Comments Blood Pressure 149/84 03/01/2013 1:26 PM EDT Pulse 99 03/01/2013 1:26 PM EDT Temperature 36.7 ??C (98.1 ??F) 03/01/2013 1:26 PM ED T Respiratory Rate 18 03/01/2013 1:26 PM EDT Oxygen Saturation 100% 03/01/2013 1:26 PM EDT Inhaled Oxygen Concentration - - Weight 90.7 kg (200 lb) 03/01/2013 1:26 PM EDT Height - - Body Mass Index - - documented in this encounter Discharge Instructions * Discharge Instructions* Bonifacio Laird PA - 03/01/2013 2:20 PM EDT #1. Follow instructions for printed handout. #2. Clindamycin 300 mg one capsule every 6 hours for 7 days. #3. Ibuprofen 800 mg one tablet every 8 hours with food as needed for discomfort. #4. Vicodin 5/500 one to 2 capsules every 6 hours as needed for breakthrough discomfort. #5. Followup with a dentist LEXX see handouts alternatives for dental care from on and low-cost dental clinics. #6. Followup in the ED as needed. * Attachments The following attachments cannot be sent through Care Everywhere. * ABSCESSED TOOTH: AFTER YOUR VISIT (SAMMARINESE) * DENTAL PAIN: AFTER YOUR VISIT (SAMMARINESE) documented in this encounter Medications at Time of Discharge Medication Sig Dispensed Refills Start Date End Date clindamycin (CLEOCIN) 300 mg capsule Take 1 capsule by mouth 4 times daily for 7 doses. 28 capsule 0 03/01/2013 03/03/2013 hydroCODone-acetaminoph en (VICODIN) 5-500 mg per tablet Take 1-2 tablets by mouth every 6 hours for 3 days. PRN break thru pain 20 tablet 0 03/01/2013 03/04/2013 ibuprofen (ADVIL;MOTRIN) 800 mg tablet Take 1 tablet by mouth every 8 hours for 7 days. 21 tablet 1 03/01/2013 03/08/2013 documented as of this encounter ED Notes * Bonifacio Laird PA - 03/01/2013 2:04 PM EDT CC: Toothache HPI: Nancy Diego is a 47 y.o. female who presents with dental pain which started 3 days ago. The patient states that the pain is located in the right lower jaw and is described as constant, moderate. They have tried using acetaminophen, ibuprofen (OTC), oragel without relief. The patient has not had similar episodes in the past. Associated symptoms: fever no; difficulty swallowing yes; facial swelling no; difficulty breathing no. PMH: No past medical history on file. MEDS: No current facility-administered medications for this encounter. No current outpatient prescriptions on file. ALL: Allergies Allergen Reactions ??? Penicillins Rash ROS: Pertinent positives and negatives were mentioned in the HPI, all other systems negative. PHYSICAL EXAM: Vitals: BP 149/84 Pulse 99 Temp 36.7 ??C (98.1 ??F) (Oral) Resp 18 Wt 90.719 kg (200 lb) SpO2 100% Gen: Well appearing female in NAD HEENT: There is no facial swelling on the affected. No trismus. Tenderness noted on percussion of tooth 31. There is not swelling noted in the buccal fold on the side of the affected tooth. There is no sublingual swelling. Other notable findings include: fair oral hygiene. Neck: Supple with no lymphadenopathy Cardiovascular: Regular rhythm without murmurs, rubs, gallops Neuro: Alert and oriented to person, placed and time ED COURSE: Vitals signs and nursing notes reviewed. MEDICAL DECISION MAKING: This was felt to be dental pain secondary to decay and possible early apical abscess. Although geo apical abscess was considered, there was none apparent on exam and thus very unlikely. Deep space infection such as Ludwigs Angina was also felt to be very unlikely as therewas no trismus, facial swelling, or swelling in the sublingual area. ASSESSMENT: Dental decay with Periapical Abscess/Pulpitis PLAN: 1. OTC ibuprofen and/or tylenol prn 2. Clindamycin 300 QID x 7d 3.vicodan 5/500 for 3 days 4. Follow-up with dentist at next available opportunity 5. Advised to return to the ED sooner for fever greater than 101, new facial swelling, difficulty swallowing, or worsening pain. Chief Complaint Patient presents with ??? Dental Pain The history is provided by the patient. Patient comes emergency department because of pain in her right back molar. She states it's been loose for a while but over the past couple days has become increasingly painful. It now hurts to Smiley sarmiento. Allergies Allergen Reactions ??? Penicillins Rash Review of Systems Physical Exam Procedures MDM ED Course: The patient was informed of our impression [...] outpatient follow-up. This note was created using [employer] voice recognition software. Bonifacio Laird PA 03/01/13 1421 * Adelita Terrell RN - 03/01/2013 1:55 PM EDT Presents to ED via triage, AAOx3, ambulatory with c/o right-sided dental pain x ~2 weeks which has progressively worsened. Pain is exacerbated by talking, eating, and drinking liquids. Denies fever. to evaluate. documented in this encounter Miscellaneous Notes * Miscellaneous - Provider, Scanning - 03/01/2013 2:39 PM EDT * ED Triage - Elli Cooney RN - 03/01/2013 1:28 PM EDT Patient has noted a loose bottom right back molar and now it has become painful. She states it hurts to eat and to swallow. She is alert, skin is pink,warm and dry. documented in this encounter Plan of Treatment Scheduled Referrals Name Type Priority Associated Diagnoses Orde r Schedule Referral to General Internal Medicine Outpatient Referral Routine Ordered: 03/01/2013 documented as of this encounter Visit Diagnoses Diagnosis Dental infection- Primary Acute apical periodontitis of pulpal origin documented in this encounter Care Teams Receptionist Clerk Relationship Specialty Start Date End Date None None PCP - General 03/01/13 04/20/13 documented as of this encounter
--- OUTSIDE RECORDS SUMMARY | 2024-04-03 16:07 | XMS_ITS | Encounter Summary ---
Author Organization [facility] [place] [address] Care Team Providers Care Office Secretary Name Role Phone Nubia Botello GARY Primary Care Provider + Reason for Visit * Reason Comments Low Back Pain Encounter Details Date Type Department Care Team (Late st Contact Info) Description 09/17/2014 10:00 AM EDT Office [place] [address] Lore Devi, PT [facility] RosmeryNubia joshi, [facility] [place] [address] [facility] [place] [address] Midline low back pain without sciatica Discharge Disposition: Home Social History Tobacco Use [...] as of this encounter Progress Notes * Lore Devi, PT - 09/17/2014 12:54 PM EDT PHYSICAL THERAPY INITIAL EXAMINATION Date of First Exam/ First Treatment: 09/17/2014 Referring provider: Eufemia Jose APRN Diagnosis: 1. Low back pain 2. 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 lifting restriction today Nancy Diego was referred to [facility] for [facility] physical therapy consult at the request of Eufemia Jose APRN. She was seen with the expectation to see if there is anything that can be done from an exercise perspective to ease the pain and improve her ability to function. History of Present Illness: Ms. Diego reports while moving a patient in of the bed she felt a snapin the low back and experienced acute onset of low back pain on . She notes the pain hasimproved considerably since onset, but continues to interfere with her ability to function. Treatment to date has included oral steroids and medications. A recent MRI of the lumbar spine has revealeddegenerative disc and facet changes at L4-L5 and L5-S1. Ms. Diego currently complains of low back pain with intermittent radiation to bilateral buttocks, left greater than right. She denies lower extremity numbness, tingling, and weakness. The pain is rated 3/10 at its least and 9/10 at its worst. Symptoms worsen with bending, sitting, standing, walking, turning, and lifting. Symptoms ease for noparticular reason. The pain is usually at its worst in the morning and then improve sprout worsens once again by evening. Sleep is disturbed due to the pain. When asked about a gait or balance disturbance she reports a limping at the pain is severe. Ms. 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 Patient Active Problem List Diagnosis Code ??? Depression 311 ??? Irritable bowel syndrome 564.1 ??? GERD (gastroesophageal reflux disease) 530.81 ??? Peptic ulcer disease 533.90 ??? Migraines 346.90 ??? Elevated blood pressure 796.2 ??? Body mass index (BMI) of 39.0-39.9 in adult V85.39 ??? Low back pain 724.2 : Past Medical History Diagnosis Date ??? HTN (hypertension) 04/13/2013 ??? Depression 04/13/2013 ??? Asthma ??? PTSD (post-traumatic stress disorder) ??? Urge incontinence ??? Smoker ??? GERD (gastroesophageal reflux disease) ??? Migraine ??? BMI 39.0-39.9,adult ??? KOSTA (obstructive sleep apnea) ??? History of seizures ??? Mood disorder : Past Surgical History Procedure Laterality Date ??? Cholecystectomy ??? section x3 ??? Hysterectomy ??? Dental surgery wisdom teeth, one pulled ??? 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 She smokes 0.5 packs of cigarettes per day, drinks no alcohol and is not involved in a structured exercise program. Physical Exam: Ms. Diego is a pleasant 48 y.o. female who moves about in the exam room without difficulty and appears somewhat uncomfortable while seated. Sitting posture is poor and standing is good. Examination of the low back in the standing position reveals a reduced lumbar lordosis and there is not a lateral shift of the lumbar spine on the pelvis. Active range of motion of the lumbar spine is limited to 80?? flexion and 15?? extension. End range flexion and extension worsens the pain. Gait is unremarkable. She is able to heel/toe walk and squat fully. Abdominal and trunk extensor strength is 2/5. Slouched sitting worsens the pain while sitting fully erect lessens it. Repeated movementtesting did not reveal a directional preference. It appears as if she is most comfortable with the spine in mid range. Physical Therapy Assessment: Ms. Diego is a woman with a history of low back pain which is interfering with her ability to function. The physical exam is significant for reduced range of motion of the lumbar spine, poor sitting posture, trunk musculature weakness, and no clear directional preference would movement testing. The history and exam is consistent with low back pain likely related to underlying degenerative changes. I believe that these deficits can improve with physical therapy treatments directed to the low back consisting of instruction in mechanical self-care, trunk musculature strengthening, and self mobilization exercises. Ms. Diego has a good rehabilitation potential and I a nticipate to meet with her for 3-4 additional visits over the next 3-4 weeks. Treatment Plan: The natural history of low back pain and rational for exercise based treatment was reviewed. Ms. Diego was given a home exercise program consisting of pelvic tilt and bridging in the morning and once again at bedtime. Along with the prescribed exercises, we discussed the principles of symptom self monitoring and posture correction of the seated and lying position. She will call with any questions, concerns, or if the pain worsens. Ms. Diego will return to [facility] for a follow up appointment in one weeks time with the hope that she is ready to progress her home exercise program. Physical Therapy Goals in 4 weeks: 1. Independent with home exercise program 2. Able to sit without discomfort 3. Able to walk without discomfort 4. Return to work without restrictions The plan has been discussed with the patient and Nancy Diego has agreed with the planned treatment. 55 minutes were spent interviewing, assessing, and instructing Nancy Diego in a home exercise program. documented in this encounter Plan of Treatment Not on file documented as of this encounter Visit Diagnoses Diagnosis Midline low back pain without sciatica documented in this encounter Care Teams Office Secretary Relationship Specialty Start Date End Date Nubia Botello, [facility] [address] [address] PCP - General 01/16/14 01/28/19 documented as of this encounter
--- OUTSIDE RECORDS SUMMARY | 2024-04-03 16:07 | XMS_ITS | Encounter Summary ---
Author Organization [facility] Address [facility] [place] [address] Care Team Providers Care Morgue Librarian Name Role Phone Nubia Botello APRN Primary Care Provider + Reason for Visit * Reason Comments Back Pain Encounter Details Date Type Department Care Team (Late st Contact Info) Description 01/16/2014 7:39 PM EDT - 01/16/2014 11:49 PM EDT [place] [id number] Oscar Horner MD [facility] [place] [address] Low back pain Discharge Disposition: Home Social History Tobacco [...] Sign Reading Time Taken Comments Blood Pressure 155/91 01/16/2014 7:41 PM EDT Pulse 100 01/16/2014 7:41 PM EDT Temperature 36.8 ??C (98.2 ??F) 01/16/2014 7:41 PM ED T Respiratory Rate 20 01/16/2014 7:41 PM EDT Oxygen Saturation 98% 01/16/2014 7:41 PM EDT Inhaled Oxygen Concentration - - Weight 99.8 kg (220 lb) 01/16/2014 7:41 PM EDT Height - - Body Mass Index 39.08 09/15/2013 10:56 AM EDT documented in this encounter Discharge Instructions * Discharge Instructions* Wendy Klein MD - 01/16/2014 10:58 PM EDT Images from the original note were not included. Please schedule an appointment with your PCP for next week regarding your low back pain. No drivingor operating heavy machinery with pain medication. [facility] Back Stretches: Exercises Your Care Instructions Here are some examples of exercises for stretching your back. Start each exercise slowly. Ease off the exercise if you start to have pain. Your doctor or physical therapist will tell you when you can start these exercises and which ones will work best for you. How to do the exercises Overhead stretch 1. Stand comfortably with your feet shoulder-width apart. 2. Looking straight ahead, raise both arms over your head and reach toward the ceiling. Do not allow your head to tilt back. 3. Hold for 15 to 30 seconds, then lower your arms to your sides. 4. Repeat 2 to 4 times. Side stretch 1. Stand comfortably with your feet shoulder-width apart. 2. Raise one arm over your head, and then lean to the other side. 3. Slide your hand down your leg as you let the weight of your arm gently stretch your side muscles. Hold for 15 to 30 seconds. 4. Repeat 2 to 4 times on each side. Press-up 1. Lie on your stomach, supporting [...] relax. 4. Repeat 2 to 4 times. Relax and rest 1. Lie on your back with a rolled towel under your neck and a pillow under your knees. Extend your arms comfortably to your sides. 2. Relax and breathe normally. 3. Remain in this position for about 10 minutes. 4. If you can, do this 2 or 3 times each day. Follow-up care is a perkins part of your treatment and safety. Be sure to make and go to all appointments, and call your doctor if you are having problems. It's also a good idea to know your test resultsand keep a list of the medicines you take. Where can you learn more? Visit our health information library at http://[email or web address]/Work[employer]so You can also view health information on [employer], your personal patient account. Log in or sign up today. Enter Y090 in the search box to learn more about Back Stretches: Exercises. ?? [id number] [employer]. Care instructions adapted under license by [facility]. This care instruction is for use with your licensed healthcare professional. If you have questions about a medical condition or this instruction, always ask your healthcare professional. [employer] disclaims any warranty or liability for your use of this information. Content Version: 9.9.454179; Last Revised: May 08, 2011 [facility] Learning About Relief for Back Pain What is back tension and strain? Back strain happens when you overstretch, or pull, a muscle in your back. You may hurt your back inan accident or when you exercise or lift something. Most back pain will get better with rest and time. You can take care of yourself at home to help your back heal. What can you do first to relieve back pain? When you first feel back pain, try these steps: ?? Walk. Take a short walk (10 to 20 minutes) on a level surface (no slopes, hills, or stairs) every 2 to 3 hours. Walk only distances you can manage without pain, especially leg pain. ?? Relax. Find a comfortable position for rest. Some people are comfortable on the floor or a medium-firm bed with a small pillow under their head and another under their knees. Some people prefer tolie on their side with a pillow between their knees. Don't stay in one position for too long. ?? Try heat or ice. Try using a heating pad on a low or medium setting, or take a warm shower, for 15 to 20 minutes every 2 to 3 hours. Or you can buy single- use heat wraps that last up to 8 hours. You can also try an ice pack for 10 to 15 minutes every 2 to 3 hours. You can use an ice pack or a bag of frozen vegetables wrapped in a thin towel. There is not strong evidence that either heat or icewill help, but you can try them to see if they help. You may also want to try switching between heat and cold. ?? Take pain medicine exactly as directed. ?? If the doctor gave you a prescription medicine for pain, take it as prescribed. ?? If you are not taking a prescription pain medicine, ask your doctor if you can take an tylx-hdq-twldxms medicine. What else can you do? ?? Stretch and exercise. Exercises that increase flexibility may relieve your pain and make it easier for your muscles to keep your spine in a good, neutral position. And don't forget to keep walking. ?? Do self-massage. You can use self-massage to unwind after work or school or to energize yourselfin the morning. You can easily massage your feet, hands, or neck. Self-massage works best if you are in comfortable clothes and are sitting or lying in a comfortable position. Use oil or lotion to massage bare skin. ?? Reduce stress. Back pain can lead to a vicious zuni: Distress about the pain tenses the muscles in your back, which in turn causes more pain. Learn how to relax your mind and your muscles to lower your stress. Where can you learn more? Visit our [employer] library at http://[employer]/WorkFlex Solutionso You can also view health information on [employer], your personal patient account. Log in or sign up today. Enter Q517 in the search box to learn more about Learning About Relief for Back Pain. ?? [id number] [employer]. Care instructions adapted under license by [facility]. This care instruction is for use with your licensed healthcare professional. If you have questions about a medical condition or this instruction, always ask your healthcare professional. [employer] disclaims any warranty or liability for your use of this information. Content Version: 9.9.158532; Last Revised: July 10, 2011 [facility] Learning About Relief for Back Pain What is back tension and strain? Back strain happens when you overstretch, or pull, a muscle in your back. You may hurt your back inan accident or when you exercise or lift something. Most back pain will get better with rest and time. You can take care of yourself at home to help your back heal. What can you do first to relieve back pain? When you first feel back pain, try these steps: ?? Walk. Take a short walk (10 to 20 minutes) on a level surface (no slopes, hills, or stairs) every 2 to 3 hours. Walk only distances you can manage without pain, especially leg pain. ?? Relax. Find a comfortable position for rest. Some people are comfortable on the floor or a medium-firm bed with a small pillow under their head and another under their knees. Some people prefer tolie on their side with a pillow between their knees. Don't stay in one position for too long. ?? Try heat or ice. Try using a heating pad on a low or medium setting, or take a warm shower, for 15 to 20 minutes every 2 to 3 hours. Or you can buy single- use heat wraps that last up to 8 hours. You can also try an ice pack for 10 to 15 minutes every 2 to 3 hours. You can use an ice pack or a bag of frozen vegetables wrapped in a thin towel. There is not strong evidence that either heat or icewill help, but you can try them to see if they help. You may also want to try switching between heat and cold. ?? Take pain medicine exactly as directed. ?? If the doctor gave you a prescription medicine for pain, take it as prescribed. ?? If you are not taking a prescription pain medicine, ask your doctor if you can take an kjxj-utn-spxmgwz medicine. What else can you do? ?? Stretch and exercise. Exercises that increase flexibility may relieve your pain and make it easier for your muscles to keep your spine in a good, neutral position. And don't forget to keep walking. ?? Do self-massage. You can use self-massage to unwind after work or school or to energize yourselfin the morning. You can easily massage your feet, hands, or neck. Self-massage works best if you are in comfortable clothes and are sitting or lying in a comfortable position. Use oil or lotion to massage bare skin. ?? Reduce stress. Back pain can lead to a vicious zuni: Distress about the pain tenses the muscles in your back, which in turn causes more pain. Learn how to relax your mind and your muscles to lower your stress. Where can you learn more? Visit our health information library at [email or web address]/Work[employer] Solutionso You can also view health information on [employer], your personal patient account. Log in or sign up today. Enter Q517 in the search box to learn more about Learning About Relief for Back Pain. ?? [id number] [employer]. Care instructions adapted under license by [facility]. This care instruction is for use with your licensed healthcare professional. If you have questions about a medical condition or this instruction, always ask your healthcare professional. [employer] disclaims any warranty or liability for your use of this information. Content Version: 9.9.915335; Last Revised: July 10, 2011 documented in this encounter Medications at Time of Discharge Medication Sig Dispensed Refills Start Date End Date acetaminophen (TYLENOL) 500 mg tablet Take 1,000 mg by mouth every 6 hours as needed. ibuprofen (ADVIL;MOTRIN) 600 mg tablet Take 600 mg by mouth every 6 hours as needed. 08/12/2014 albuterol (PROAIR HFA) 90 mcg/actuation inhaler Inhale 2 puffs into the lungs every 4 hours as needed for Wheezing. Use with spacer 1 Inhaler 1 07/20/2013 04/08/2015 documented as of this encounter ED Notes * Oscar Horner MD - 01/16/2014 10:33 PM EDT Chief Complaint Patient presents with ??? Back Pain HPI Nancy Diego is a 48 y.o. female who presents today in ED c/o R sided low back pain radiating to left buttock. She states that she was carrying a basket full of laundry down some stairs last night and slipped, landing on her R shoulder and straining her back. She denies any dizziness, LOC, or head trauma. Denies any numbness or tingling in extremities, no bowel or bladder issues since onset of pain. She has a history of chronic low back pain due to repetitive occupational strain and she regularly takes ibuprofen and tylenol on a daily basis. She is managed as an outpatient by Nubia Ramirez with flexaril and percocet as needed. Pt states she was unable to sleep last night because thepain in her lower back was so severe. Pt reports she has been taking tylenol and ibuprofen at home with no relief. Today, she states that the shoulder is a bit sore, but ROM is intact. She describes the pain as a soreness that is exacerbated with movement. 7-8/10 on the R and 5-6/10 on the left, pain is nonradiating. Allergies Allergen Reactions ??? Latex Skin cracks and bleeds ??? Penicillins Rash Review of Systems Constitutional: Negative. Respiratory: Negative for cough and shortness of breath. Cardiovascular: Negative for chest pain. Genitourinary: Negative for flank pain and difficulty urinating. Musculoskeletal: Positive for back pain. Negative for joint swelling, arthralgias and gait problem. Neurological: Negative for dizziness, syncope, weakness, light-headedness and headaches. All other systems reviewed and are negative. Physical Exam Constitutional: She is oriented to person, place, and time. She appears well- developed and well-nourished. HENT: Head: Normocephalic and atraumatic. Eyes: Conjunctivae normal and EOM are normal. Pupils are equal, round, and reactive to light. Neck: Normal range of motion. Neck supple. Cardiovascular: Normal rate, regular rhythm and normal heart sounds. Pulmonary/Chest: Effort normal and breath sounds normal. Abdominal: Soft. Musculoskeletal: Normal range of motion. Lumbar back: She exhibits pain and spasm. She exhibits normal range of motion, no swelling, no edema and no deformity. no crepitus, pain illicited with flexion and extension of back. ROM is not limited, but exacerbatesthe pain. Negative straight leg raise tests b/l. Pain does not radiate down legs on examination Neurological: She is alert and oriented to person, place, and time. She has normal reflexes. Skin: Skin is warm and dry. Procedures MDM Number of Diagnoses or Management Options Low back pain: ED Course: Pt's back pain is likely secondary to musculoskeletal strain, s/p mechanical fall 24 hours ago. Physical exam revealed no focal neurological deficits, with paraspinal pain consistent with musculoskeletal inflammation. Pt's PMH is significant for a similar episode of acute onset back pain after previous mechanical injury earlier this year which was managed by her PCP with percocet and flexaril. Pt's exam is otherwise benign, and she is clinically stable. Discussed with patient the benefits of keeping a consistent schedule of ibuprofen and tylenol for management of low back pain to decrease the inflammation that is the likely source of her discomfort. She requested pain relief until she is able to see her PCP again next week for more consistent and longitudinal care for management of back pain. Disposition: Discharge to home with self care. Pt instructed to continue with ibuprofen q6 and tylenol q4 PRN as first line therapy. Patient was provided with prescriptions for percocet and flexaril to be taken PRN for pain unresponsive to first line meds over the weekend until she can see her PCP next week. Wendy Klein MD Resident 01/17/14 0038 ED ATTENDING ADDENDUM: The patient was seen in conjunction with Dr. Klein, the resident physician. I have independently performed the perkins portions of the history and physical exam. I have discussed the details of the case with the resident and agree with the assessment and plan as described in the resident note above unless noted otherwise below. In summary, 48 yo with exacerbation of chronic LBP post mechanical fall. No new w/n/b/b. On exam distal SMI, SLR negative B. No midline ttp/step-off/crepitance Final Assessment: Low back pain - acute on chronic. No evidence of fx/infection/cord compression other emergent condition. Final Disposition: home Oscar Horner MD 01/19/14 1228 * Adina Rehman RN - 01/16/2014 8:09 PM EDT To Room 10A ambulatory with steady gait. Complaining of right sided low back pain radiating to leftbuttock. Also states right shoulder hurts with movement. Full range of motion but hurts. Awake and alert, skin pink, warm, and dry. documented in this encounter Miscellaneous Notes * Discharge Summary - Provider, Scanning - 01/18/2014 8:51 AM EDT * Miscellaneous - Provider, Scanning - 01/16/2014 10:57 PM EDT * ED Triage - Kadeem Rosario, RN - 01/16/2014 7:44 PM EDT Feel last evening. C/o low back pain and right shoulder pain. States pain goes to left buttock and shoots down left leg. Denies numbness, tingling in extrems. No change in usual bowel or bladder routines. Ambulating bent over and appears uncomfortable. No other injuries expressed. documented in this encounter Plan of Treatment Not on file documented as of this encounter Visit Diagnoses Diagnosis Low back pain Lumbago documented in this encounter Care Teams Morgue Librarian Relationship Specialty Start Date End Date Nubia Botello, [employer]MIST [facility] [address] [place] [address] PCP - General 01/16/14 01/28/19 documented as of this encounter
--- OUTSIDE RECORDS SUMMARY | 2024-04-03 16:07 | XMS_ITS | Encounter Summary ---
Author Organization [facility] [place] [address] Care Team Providers Care Production Manager Name Role Phone Nubia Botello APRN Primary Care Provider + Reason for Visit * Reason Comments Back Injury Results of MRI Encounter Details Date Type Department Care Team (Late st Contact Info) Description 08/18/2014 9:45 AM EST Follow-Up Internal Medicine at [address] [address] Nubia Botello APRN [facility] [place] [address] Acute low back pain Discharge Disposition: Home Social History [...] Sign Reading Time Taken Comments Blood Pressure 133/93 08/18/2014 9:35 AM EST Pulse 93 08/18/2014 9:35 AM EST Temperature 36.7 ??C (98 ??F) 08/18/2014 9:35 AM EST Respiratory Rate 16 08/18/2014 9:35 AM EST Oxygen Saturation 98% 08/18/2014 9:35 AM EST Inhaled Oxygen Concentration - - Weight 103 kg (227 lb) 08/18/2014 9:35 AM EST Height 162.6 cm (5' 4) 08/18/2014 9:35 AM EST Body Mass Index 38.96 08/18/2014 9:35 AM EST documented in this encounter Progress Notes * Nubia Botello APRN - 08/18/2014 9:52 AM EST PCP: NUBIA BOTELLO APRN Chief Complaint Patient presents with ??? Back Injury Results of MRI SUBJECTIVE: Nancy Diego is a 48 y.o. female who presents for follow up for back pain. She reports ongoing backpain, with little improvement with pain medications. She reports that flexeril makes her sleepy andonly takes it at night. She states that she does wake in the pain. She reports that she has pain with sitting for or standing for long periods of time. - she states that she attempted to sweep her floor and had significant pain. - She gets some relief with the vicodin, but she did not get new script until yesterday. Review of Systems Constitutional: Negative for fever and chills. Gastrointestinal: Negative for nausea, vomiting, abdominal pain, diarrhea and constipation. Genitourinary: Negative for difficulty urinating. Musculoskeletal: Positive for myalgias, back pain and gait problem. Allergies Allergen Reactions ??? Latex Skin cracks and bleeds ??? Penicillins Rash Current Outpatient Prescriptions Medication Sig Dispense Refill ??? cyclobenzaprine (FLEXERIL) 10 mg Tablet Take 1 tablet by mouth 3 times daily as needed for Muscle spasms. No driving, no alcohol 30 tablet 0 ??? ibuprofen (ADVIL;MOTRIN) 800 mg Tablet Take 1 tablet by mouth every 8 hours as needed. 30 tablet 0 ??? HYDROcodone-acetaminophen 5-325 mg Tablet Take 1-2 tablets by mouth every 6 hours as needed forPain. 30 tablet 0 ??? albuterol (PROAIR HFA) 90 mcg/actuation inhaler [...] adult V85.39 ??? Low back pain 724.2 OBJECTIVE: Filed Vitals: 08/18/14 0935 BP: 133/93 Pulse: 93 Temp: 36.7 ??C (98 ??F) TempSrc: Oral Resp: 16 Height: 162.6 cm (5' 4) Weight: 102.967 kg (227 lb) SpO2: 98% PHYSICAL EXAM: Physical Exam Constitutional: She is oriented to person, place, and time. She appears well- developed and well-nourished. She appears distressed. HENT: Head: Normocephalic and atraumatic. Eyes: Conjunctivae are normal. No scleral icterus. Pulmonary/Chest: Effort normal. Musculoskeletal: Lumbar back: She exhibits decreased range of motion, tenderness and pain. She exhibits no edema. Neurological: She is alert and oriented to person, place, and time. She has normal reflexes. She displays normal reflexes. Skin: Skin is warm and dry. Psychiatric: She has a normal mood and affect. Her behavior is normal. Judgment and thought contentnormal. Vitals reviewed. - able to forward flex at hips to 45 degrees. Minimal lateral flexion secondary to pain and unable to back extend. ASSESSMENT & PLAN: Nancy was seen today for back injury. Diagnoses and associated orders for this visit: Acute low back pain - given note for patient to remain out of work - patient to f/u with spine center - MRI did not show any nerve compression - encouraged PT - pain medication given - HYDROcodone-acetaminophen 5-325 mg Tablet; Take 1-2 tablets by mouth every 6 hours as needed for Pain. documented in this encounter Plan of Treatment Not on file documented as of this encounter Visit Diagnoses Diagnosis Acute low back pain Lumbago documented in this encounter Care Teams Production Manager Relationship Specialty Start Date End Date Nubia Botello APRN [facility] [address] [place] [address] PCP - General 01/16/14 01/28/19 documented as of this encounter
--- OUTSIDE RECORDS SUMMARY | 2024-04-03 16:07 | XMS_ITS | Encounter Summary ---
Author Organization [facility] [place] [address] Care Team Providers Care 3D Technologist Name Role Phone Nubia Conley APRN Primary Care Provider + Reason for Visit * Reason Comments Follow-up Encounter Details Date Type Department Care Team (Late st Contact Info) Description 09/22/2013 9:25 AM EDT Follow-Up Internal Medicine at [facility] [address] [place] [id number] Nubia Conley APRN [facility] [place] [address] Lumbago (Primary Dx) Discharge Disposition: Home Social History [...] Sign Reading Time Taken Comments Blood Pressure 130/88 09/22/2013 9:40 AM EDT Pulse 86 09/22/2013 9:40 AM EDT Temperature 36.6 ??C (97.9 ??F) 09/22/2013 9:40 AM ED T Respiratory Rate - - Oxygen Saturation 98% 09/22/2013 9:40 AM EDT room air Inhaled Oxygen Concentration - - Weight 103.8 kg (228 lb 12.8 oz) 09/22/2013 9:40 AM EDT Height - - Body Mass Index 40.64 09/15/2013 10:56 AM EDT documented in this encounter Progress Notes * Nubia Conley APRN - 09/22/2013 9:58 AM EDT PCP: NUBIA CONLEY APRN Chief Complaint Patient presents with ??? Follow-up SUBJECTIVE: Nancy Diego is a 47 y.o. female who presents for follow up for her low back pain. She reports thatpain improved a little with the steroids, but that it did not help as much as last time. She statesthat it is primarily located in her low back and is a soreness. She reports discomfort with ROM, but improved ROM from last visit. She has physical therapy this afternoon. ROS: GEN: Denies fevers, chills, lightheadedness or dizziness CARDIO: Denies palpitations, or chest discomfort RESP: Denies shortness of breath, LAYNE, cough Allergies Allergen Reactions ??? Latex Skin cracks and bleeds ??? Penicillins Rash Current Outpatient Prescriptions Medication Sig Dispense Refill ??? MOTRIN 800 mg tablet Take 1 tablet by mouth every 6 hours as needed for Pain. 30 tablet 0 ??? oxyCODONE-acetaminophen (PERCOCET) 5-325 mg per tablet Take 0.5-1 tablets by mouth every 8 hours as needed for Pain. 20 tablet 0 ??? cyclobenzaprine (FLEXERIL) 10 mg tablet Take 1 tablet by mouth 3 times daily as needed for Muscle spasms. No driving, no alcohol 20 tablet 0 ??? acetaminophen (TYLENOL) 500 mg tablet Take 1,000 mg by mouth every 6 hours as needed. ??? albuterol (PROAIR HFA) 90 mcg/actuation inhaler Inhale 2 puffs into the lungs every 4 hours as needed for Wheezing. Use with spacer 1 Inhaler 1 Patient Active Problem List Diagnosis Code ??? Depression 311 ??? Irritable bowel syndrome 564.1 ??? GERD (gastroesophageal reflux disease) 530.81 ??? Peptic ulcer disease 533.90 ??? Migraines 346.90 ??? Elevated blood pressure 796.2 ??? Body mass index (BMI) of 39.0-39.9 in adult V85.39 OBJECTIVE: Filed Vitals: 09/22/13 0940 BP: 130/88 Pulse: 86 Temp: 36.6 ??C (97.9 ??F) TempSrc: Oral Weight: 103.783 kg (228 lb 12.8 oz) SpO2: 98% PHYSICAL EXAM: GENERAL APPEARANCE: alert, oriented, in no acute distress HEENT: TMs normal, without erythema. No sinus tenderness. Nasal mucosa pink & moist. Pharynx without erythema, exudate, or enlarged tonsils. NECK: supple, no lymphadenopathy. CARDIO: RRR, no murmurs. LUNGS: CTA, no rales, rhoncii, or wheezes. Back is straight with focal tenderness on lumbar/sacral spine, with tenderness of paraspinal muscles of lumbar spine. Discomfort but with improved range of motion on forward flexion, back extension, lateral flexion/extension, rotation. Straight leg raise negative; DTR's 2+/4+, symmetrical lower extremities. ASSESSMENT & PLAN: Nancy was seen today for follow-up . Diagnoses and associated orders for this visit: Lumbago - given that she has had two injuries at work and she is still having pain, will give note for return to work, but she cannot lift more than 20 lbs as do not want her to continue to injure her back - she will f/u with PT today, return to full duty will be based on improvement of symptoms - work comp form completed - she is to continue with ibuprofen - using to help with sleep. She will take only as needed. - oxyCODONE-acetaminophen (PERCOCET) 5-325 mg per tablet; Take 0.5-1 tablets by mouth every 8 hoursas needed for Pain. documented in this encounter Plan of Treatment Not on file documented as of this encounter Visit Diagnoses Diagnosis Lumbago- Primary documented in this encounter Care Teams 3D Technologist Relationship Specialty Start Date End Date Nubia Conley APRN [facility] [address] [place] [address] PCP - General 04/21/13 12/21/13 documented as of this encounter
--- OUTSIDE RECORDS SUMMARY | 2024-04-03 16:07 | XMS_ITS | Encounter Summary ---
Author Organization [facility] Address [facility] [place] [address] Care Team Providers Care Fur Drummer Name Role Phone Nubia Botello APRN Primary Care Provider + Encounter Details Date Type Department Care Team (Late st Contact Info) Description 08/14/2014 8:58 AM EST - 08/14/2014 11:59 PM EST Hospital [place] [address] CLIN[address], DR GILBERT Dominguez, Consuelo Robertson MD [facility] [place] [address] Acute low back pain Discharge Disposition: Home [...] Take 2 tablets by mouth daily for 3 days. 6 tablet 0 08/12/2014 08/15/2014 cyclobenzaprine (FLEXERIL) 10 mg Tablet Take 1 tablet by mouth 3 times daily as needed for Muscle spasms. No driving, no alcohol 30 tablet 0 08/12/2014 08/27/2014 ibuprofen (ADVIL;MOTRIN) 800 mg Tablet Take 1 tablet by mouth every 8 hours as needed. 30 tablet 0 08/12/2014 03/29/2017 HYDROcodone-acetaminoph en 5-325 mg Tablet Take 1-2 tablets by mouth every 6 hours as needed for Pain. 30 tablet 0 08/12/2014 08/18/2014 albuterol (PROAIR HFA) 90 mcg/actuation inhaler Inhale 2 puffs into the lungs every 4 hours as needed for Wheezing. Use with spacer 1 Inhaler 1 07/20/2013 04/08/2015 documented as of this encounter Plan of Treatment Not on file documented as of this encounter Procedures Procedure Name Priority Date/Time Associated Diagnosis Comments MRI LUMBAR SPINE WITHOUT CONTRAST Routine 08/14/2014 9:57 AM EST Acute low back pain documented in this encounter Results * MRI lumbar spine without contrast (08/14/2014 9:57 AM EST) Anatomical Region Laterality Modality L-spine Magnetic Resonan ce 08/14/2014 9:57 AM EST Impressions 08/14/2014 6:09 PM EST IMPRESSION: Mild degenerative disc disease and facet arthropathy of the lower lumbar spine as described above. No visible nerve root impingement. Comment: The following findings are so common in people without low back pain that while we report there presence, they must be interpreted with caution and in context of the clinical situation (Reference- Jenarovik et al, Spine 2001). Findings: (Prevalence in patients without low back pain), disc degeneration (decreased T2 signal, height loss, bulge) (91%), disc T2-signal loss (83%), disc height loss (56%), disc bulge (64%), disc protrusion (32%), annular fissure (38%). Narrative 08/14/2014 6:09 PM EST EXAMINATION: MR Lumbar Spine WO CLINICAL HISTORY: severe low back pain with weakness of legs TECHNIQUE: MRI of the lumbar spine was obtained without the use of intravenous contrast. COMPARISON: None FINDINGS: Vertebral height, alignment, and marrow signal are normal. There is slight loss of disc space height at L5-S1. The conus medullaris is of normal contour and signal characteristics terminating at the level of T12. The nerve roots of the cauda equina show no abnormality. At T12-L1, L1-2, L2-3, L3-4, and L4-5 there is no disc herniation or evidence of nerve root impingement. At L3-4 and L4-5 there is mild bilateral hypertrophic facet arthropathy. At L5-S1 there is a minor circumferential disc bulge with a superimposed small central posterior disc protrusion. There is material does not contact or displace nerve roots. There is mild bilateral hypertrophic facet arthropathy. Procedure Note Ten Paz MD - 08/14/2014 EXAMINATION: MR Lumbar Spine WO CLINICAL HISTORY: severe low back pain with weakness of legs TECHNIQUE: MRI of the lumbar spine was obtained without the use ofintravenous contrast. COMPARISON: None FINDINGS: Vertebral height, alignment, and marrow signal are normal. Thereis slight loss of disc space height at L5-S1. The conus medullaris is ofnormal contour and signal characteristics terminating at the level of T12. Thenerve roots of the cauda equina show no abnormality. At T12-L1, L1-2, L2-3, L3-4, and L4-5 there is no disc herniation orevidence of nerve root impingement. At L3-4 and L4-5 there is mild bilateralhypertrophic facet arthropathy. At L5-S1 there is a minor circumferential disc bulge with a superimposedsmall central posterior disc protrusion. There is material does not contact or displace nerve roots. There is mild bilateral hypertrophic facetarthropathy. IMPRESSION IMPRESSION: Mild degenerative disc disease and facet arthropathy of thelower lumbar spine as described above. No visible nerve root impingement. Comment: The following findings are so common in people without low backpain that while we report there presence, they must be interpreted with cautionand in context of the clinical situation (Reference- Jacinda et al, [id number]). Findings: (Prevalence in patients without low back pain), discdegeneration (decreased T2 signal, height loss, bulge) (91%), disc T2-signal loss(83%), disc height loss (56%), disc bulge (64%), disc protrusion (32%), annularfissure (38%). Consuelo Dominguez MD IMG MRI ORDERABLE S documented in this encounter Visit Diagnoses Diagnosis Acute low back pain Lumbago documented in this encounter Care Teams Fur Drummer Relationship Specialty Start Date End Date Nubia Botello, G[facility] [address] [place] [address] PCP - General 01/16/14 01/28/19 documented as of this encounter
--- OUTSIDE RECORDS SUMMARY | 2024-04-03 16:07 | XMS_ITS | Encounter Summary ---
Author Organization [facility] [place] [address] Care Team Providers Care Dental Office Coordinator Name Role Phone Nubia Conley APRN Primary Care Provider + Reason for Visit * Reason Comments Establish Care Encounter Details Date Type Department Care Team (Late st Contact Info) Description 04/21/2013 9:50 AM EDT Office Visit [facility] [address] [place] [id number] Nubia Conley, BUCKLE INSPECTOR [facility] [place] [address] Health care maintenance (Primary Dx); Encounter to establish care; Elevated blood pressure; Depression; Plantar fasciitis Discharge Disposition: Home Social History Tobacco Use [...] Reading Time Taken Comments Blood Pressure 140/82 04/21/2013 9:58 AM EDT Pulse 85 04/21/2013 9:58 AM EDT Temperature 36.6 ??C (97.9 ??F) 04/21/2013 9:58 AM ED T Respiratory Rate 12 04/21/2013 9:58 AM EDT Oxygen Saturation 98% 04/21/2013 9:58 AM EDT Inhaled Oxygen Concentration - - Weight 99.2 kg (218 lb 9.6 oz) 04/21/2013 9:58 A M EDT Height 159.7 cm (5' 2.87) 04/21/2013 9:58 AM ED T Body Mass Index 38.88 04/21/2013 9:58 AM EDT documented in this encounter Patient Instructions * Patient Instructions* Nubia Conley W, BUCKLE INSPECTOR - 04/21/2013 11:02 AM EDT Images from the original note were not included. [facility] Plantar Fasciitis: After Your Visit Your Care Instructions Plantar fasciitis is pain and inflammation of the plantar fascia, the tissue at the bottom of your foot that connects the heel bone to the toes. The plantar fascia also supports the arch. If you strain the plantar fascia, it can develop small tears and cause heel pain when you stand or walk. Plantar fasciitis can be caused by running or other sports. It also may occur in people who are overweight or who have high arches or flat feet. You may get plantar fasciitis if you walk or stand forlong periods, or have a tight Achilles tendon or calf muscles. You can improve your foot pain with rest and other care at home. It might take a few weeks to a fewmonths for your foot to heal completely. Follow-up care is a perkins part of your treatment and safety. Be sure to make and go to all appointments, and call your doctor if you are having problems. It???s also a good idea to know your test results and keep a list of the medicines you take. How can you care for yourself at home? ?? Rest your feet often. Reduce your activity to a level that lets you avoid pain. If possible, do not run or walk on hard surfaces. ?? Take pain medicines exactly as directed. ?? If the doctor gave you a prescription medicine for pain, take it as prescribed. ?? If you are not taking a prescription pain medicine, take an urln-xqp-mgykqzl anti-inflammatory medicine for pain and swelling, such as ibuprofen (Advil, Motrin) or naproxen (Aleve). Read and follow all instructions on the label. ?? Use ice massage to help with pain and swelling. You can use an ice cube or an ice cup several times a day. To make an ice cup, fill a paper cup with water and freeze it. Cut off the top of the cupuntil a half-inch of ice shows. Hold onto the remaining paper to use the cup. Rub the ice in small circles over the area for 5 to 7 minutes. ?? Contrast baths, which alternate hot and cold water, can also help reduce swelling. But because heat alone may make pain and swelling worse, end a contrast bath with a soak in cold water. ?? Wear a night splint if your doctor suggests it. A night splint holds your foot with the toes pointed up and the foot and ankle at a 90-degree angle. This position gives the bottom of your foot a constant, gentle stretch. ?? Do simple exercises such as calf stretches and towel stretches 2 to 3 times each day, especiallywhen you first get up in the morning. These can help the plantar fascia become more flexible. They also make the muscles that support your arch stronger. Hold these stretches for 15 to 30 seconds perstretch. Repeat 2 to 4 times. ?? Stand about 1 foot from [address] the palms of both hands against the wall at chest level. Lean forward against the wall, keeping one leg with the knee straight and heel on the ground while bending the knee of the other leg. ?? Sit down on the floor or a mat with your feet stretched in front of you. Roll up a towel lengthwise, and loop it over the ball of your foot. Holding the towel at both ends, gently pull the towel toward you to stretch your foot. ?? Wear shoes with good arch support. Athletic shoes or shoes with a well- cushioned sole are good choices. ?? Try heel cups or shoe inserts (orthotics) to help cushion your heel. You can buy these at many shoe stores. ?? Put on your shoes as soon as you get out of bed. Going barefoot or wearing slippers may make your pain worse. ?? Reach and stay at a good weight for your height. This puts less strain on your feet. When should you call for help? Call your doctor now or seek immediate medical care if: ?? You have heel pain with fever, redness, or warmth in your heel. ?? You cannot put weight on the sore foot. Watch closely for changes in your health, and be sure to contact your doctor if: ?? You have numbness or tingling in your heel. ?? Your heel pain lasts more than 2 weeks. Where can you learn more? Visit our health information library at [email or web address]. You can alsoview health information on [employer], your personal patient account. Log in or sign up today. Enter X351 in the search box to learn more about Plantar Fasciitis: After Your Visit. ?? [id number] [employer]. Care instructions adapted under license by [facility]. This care instruction is for use with your licensed healthcare professional. If you have questions about a medical condition or this instruction, always ask your healthcare professional. [employer] disclaims any warranty or liability for your use of this information. Content Version: 9.1.178339; Last Revised: August 02, 2010[facility] Plantar Fasciitis: Exercises Your Care Instructions Here are some examples of typical rehabilitation exercises for your condition. Start each exercise slowly. Ease off the exercise if you start to have pain. Your doctor or physical therapist will tell you when you can start these exercises and which ones will work best for you. How to do the exercises Note: Each exercise should create a pulling feeling but should not cause pain. Towel stretch 1. Sit with your legs extended and knees straight. 2. Place an elastic band or towel around your foot just under the toes. A towel will give you a more effective stretch. 3. Hold each end of the towel or band in each hand, with your hands above your knees. 4. Pull back with the towel or band so that your foot stretches toward you. 5. Hold the position for at least 15 to 30 seconds. 6. Repeat 2 to 4 times a session, up to 5 sessions a day. Calf stretch Note: This exercise stretches the muscles at the back of the lower leg (the calf) and the Achilles tendon. Do this exercise 3 or 4 times a day, 5 days a week. 1. Stand facing a wall with your hands on the wall at about eye level. Put the leg you want to stretch about a step behind your other leg. 2. Keeping your back heel on the floor, bend your front knee until you feel a stretch in the back leg. 3. Hold the stretch for 15 to 30 seconds. Repeat 2 to 4 times. Plantar fascia and calf stretch Note: Stretching the plantar fascia and calf muscles can increase flexibility and decrease heel pain. You can do this exercise several times each day and before and after activity. 1. Stand on a step as shown above. Be sure to hold on to the banister. 2. Slowly let your heels down over the edge of the step as you relax your calf muscles. You should feel a gentle stretch across the bottom of your foot and up the back of your leg to your knee. 3. Hold the stretch about 15 to 30 seconds, and then tighten your calf muscle a little to bring your heel back up to the level of the step. Repeat 2 to 4 times. Towel curls 1. While sitting, place your foot on a towel on the floor and scrunch the towel toward you with your toes. 2. Then, also using your toes, push the towel away from you. Note: Make this exercise more challenging by placing a weighted object, such as a soup can, on the other end of the towel. Norman pickups 1. Put marbles on the floor next to a cup. 2. Using your toes, try to lift the marbles up from the floor and put them in the cup. Follow-up care is a perkins part of your treatment and safety. Be sure to make and go to all appointments, and call your doctor if you are having problems. It's also a good idea to know your test resultsand keep a list of the medicines you take. Where can you learn more? Visit our health information library at [email or web address]. You can alsoview health information on [employer], your personal patient account. Log in or sign up today. Enter X377 in the search box to learn more about Plantar Fasciitis: Exercises. ?? [id number] [employer]. Care instructions adapted under license by [facility]. This care instruction is for use with your licensed healthcare professional. If you have questions about a medical condition or this instruction, always ask your healthcare professional. [employer] disclaims any warranty or liability for your use of this information. Content Version: 9.1.216658; Last Revised: May 06, 2009 documented in this encounter Progress Notes * Nubia Conley APRN - 04/21/2013 10:10 AM EDT PCP: NUBIA CONLEY, GARY SUBJECTIVE: 47 y.o. female presents for annual exam and to establish care. She was seen previously at the [facility]. She reports last time she was seen was in August. She was treated for strep throat in ER. She has finished the antibiotic, she reports that throat isbetter but still sore at times. She is able to eat and drink. She had hysterectomy about 12 years ago for endometriosis. She had the procedure done at [facility]. 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 She has two grandchildren ages 2 and 3 that live with her and . Her daughter, who is 25 lives with her as well. Her is having a lot of health problems as well. She has custody of her great niece who is 17. Depression- she reports that - her mom this summer. 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 She has struggled since her mom . - she has tried counselor in the past. She reports that she has tried multiple depression medications in the past. She reports that she was on antidepressant and mood stabilizer and that made her have no emotion. She states that she was on the Celexa for the last medication. Hypertension- she had been on medication and stopped it all on her own. She has not been on anything for awhile. She has history of blood in stool and peptic ulcers. No blood in stools in last 6 months. History Smoking status ??? Current Every Day Smoker -- 0.5 packs/day Smokeless tobacco ??? Not on file Pertinent findings to emphasize are: myD-H Primary Care 04/21/2013 PROMIS 10-Health in general Good PROMIS 10-Quality of life Good PROMIS 10-Physical health Good PROMIS 10-Mental health Fair PROMIS 10-Satisfaction with social activities Fair PROMIS 10-Ability to carry out social activities Good PROMIS 10-Ability to carry out physical activities Moderately PROMIS 10-Bothered by emotional problems Often PROMIS 10-Rate of fatigue Moderate PROMIS 10-Rate of pain 5 PROMIS 10- Physical Health Score 39.8 PROMIS 10- Mental Health Score 36.3 PHQ-9 Depression 13 (Moderate Depression) Audit Subscores 1 (Low Risk) Review of Systems: REVIEW OF SYSTEMS 04/21/2013 Constitutional Weakness, Fatigue, lack of energy, Drowsiness, Pain- she reports that she is doing ok Ear / nose / throat / mouth Difficulty swallowing, Hoarseness, Sore throat Eyes Blurry vision, double vision (vision impairment) Respiratory Cough Cardiovascular None of the above Gastrointestinal Trouble swallowing, Heartburn, indigestion, Diarrhea Skin, hair None of the above Musculoskeletal Joint stiffness, Back pain, Joint pain, Muscle stiffness, Unable to walk/difficultywalking Neurological Headaches Hematologic / Lymphatic None of the above Genitourinary None of the above Sexual Activity: PRIMARY CARE Q - SEXUAL ACTIVITY 04/21/2013 Menopausal Symptoms No Menstruating No Sexually Active Yes Sexual Orientation One man control use No Why not using control Hysterectomy Sexual Concerns No Drug Use: PRIMARY CARE Q - DRUG USE 04/21/2013 Drug Use I have never tried such drugs Patient Active Problem List Diagnosis Code ??? HTN (hypertension) 401.9 ??? Depression 311 Current Outpatient Prescriptions Medication Sig Dispense Refill ??? [DISCONTINUED] OXYcodone (ROXICODONE) 5 mg immediate release tablet Take 1 tablet by mouth nightly as needed for Pain. 5 tablet 0 Allergies Allergen Reactions ??? Latex Skin cracks and bleeds ??? Penicillins Rash Physical Exam: Filed Vitals: 04/21/13 0958 BP: 140/82 Pulse: 85 Temp: 36.6 ??C (97.9 ??F) TempSrc: Oral Resp: 12 Height: 159.7 cm (5' 2.87) Weight: 99.156 kg (218 lb 9.6 oz) SpO2: 98% General: alert, oriented, no acute distress ENT: TMs normal. No sinus tenderness. Nasal mucosa pink and moist. Pharynx without erythema, exudate, or enlarged tonsils. NECK: soft and supple, no lymphadenopathy. Heart: RRR S1S2 nl, no murmurs, no carotid bruits, no pretibial edema LUNGS: CTA bilat, no crackles or wheezes ABDOMEN: nl bowel sounds, soft, non-tender, non-distended, no masses MSK: ROM/strength equal and nl x 4 extremities FEET- pain with palpation along fascia of left foot. Assessment/Plan: Nancy was seen today for establish care. Diagnoses and associated orders for this visit: Health care maintenance - Mammo digital bilateral Screening with CAD; Future - refused flu vaccine - pt up to date this year on Tdap as needs it for employment - request for patient's old records - encouraged patient to try to quit smoking. 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 DEPRESSION - patient has tried multiple medications in the past, will restart prozac at this time and have pt f/u in about one month - she is to let us know if symptoms get worse. - FLUoxetine (PROZAC) 20 mg capsule; Take 1 capsule by mouth daily. Take one capsul daily in the morning and increase to two tablets after two weeks if well tolerated. GERD/Hx peptic ulcer disease - patient reports ongoing gerd and hx peptic ulcer disease with occasional melena. Will treat with with omeprazole. - omeprazole (PRILOSEC OTC) 20 mg tablet; Take 1 tablet by mouth daily. PLANTAR FASCITIS - given exercises and information of plantar fascitis - patient to wear good supporting shoes as well to try to help with discomfort - if no improvement will consider referral to podiatry documented in this encounter Plan of Treatment Not on file documented as of this encounter Visit Diagnoses Diagnosis Health care maintenance- Primary Unspecified general medical examination Encounter to establish care Other reasons for seeking consultation Elevated blood pressure Elevated blood pressure reading without diagnosis of hypertension Depression Depressive disorder, not elsewhere classified Plantar fasciitis Plantar fascial fibromatosis documented in this encounter Care Teams Dental Office Coordinator Relationship Specialty Start Date End Date Nubia Conley APRN [facility] [address] [place] [address] PCP - General 04/21/13 12/21/13 documented as of this encounter
--- OUTSIDE RECORDS SUMMARY | 2024-04-03 16:07 | XMS_ITS | Encounter Summary ---
Author Organization [facility] [place] [address] Care Team Providers Care Kinesiologist Name Role Phone Rosmery Nubia Lopez APRN Primary Care Provider + Reason for Visit * Reason Comments Annual Exam Other adoption forms Encounter Details Date Type Department Care Team (Late st Contact Info) Description 11/19/2014 8:45 AM EDT Office Visit Internal Medicine at [address] [address] Nubia Conley RADIATION ENGINEER [facility] [place] [address] Health care maintenance; Screening for diabetes mellitus; Screening cholesterol level; Essential hypertension; Screening breast examination; Need for otxtbbhhui-oyzxtmz-h ertussis (Tdap) vaccine Discharge Disposition: Home Social History Tobacco Use [...] Sign Reading Time Taken Comments Blood Pressure 159/99 11/19/2014 8:54 AM EDT Pulse 79 11/19/2014 8:54 AM EDT Temperature - - Respiratory Rate - - Oxygen Saturation 98% 11/19/2014 8:54 AM EDT Inhaled Oxygen Concentration - - Weight 105.2 kg (232 lb) 11/19/2014 8:54 AM EDT Height 160 cm (5' 3) 11/19/2014 8:54 AM EDT Body Mass Index 41.1 11/19/2014 8:54 AM EDT documented in this encounter Patient Instructions * Patient Instructions* Nubia Conley APRN - 11/19/2014 9:35 AM EDT Please have your fasting labs drawn. You will need to fast for 10-12 hours prior to having the labsdrawn. - the lab orders will remain active until 12/19/14 documented in this encounter Progress Notes * Consuelo Delaney RN - 11/19/2014 10:11 AM EDT Tdap given IM left deltoid, info sheet given * Nubia Conley APRN - 11/19/2014 9:08 AM EDT PCP: NUBIA CONLEY APRN SUBJECTIVE: 48 y.o. female presents for annual exam and to have paperwork completed for adoption of her four grandchildren. - she has been caring for her two older (4 & 5 years) granddaughters for a long time - she is fostering her two grandsons for the last 6 months. The youngest is 6 months old. - She is still working, no current complaints of back pain. She has not been using flexeril or vicodin recently. Not interested in PT at this time EXERCISE- active with work, but no regular exercise outside of work LIPID SCREENING-is due and ordered today COLONOSCOPY- at age 52 PAP SMEAR- not indicated s/p hysterectomy TDAP-is due and ordered today History Smoking status ??? Current Every Day Smoker -- 0.50 packs/day ??? Types: Cigarettes Smokeless tobacco ??? Never Used Review of Systems Constitutional: Negative for fever, chills, appetite change and fatigue. HENT: Negative for congestion, ear pain, sinus pressure and sneezing. Respiratory: Negative for cough and shortness of breath. Cardiovascular: Negative for chest pain and palpitations. Gastrointestinal: Negative for nausea, vomiting, abdominal pain, diarrhea, constipation, abdominal distention and rectal pain. Genitourinary: Negative for dysuria, frequency and difficulty urinating. Musculoskeletal: Negative for myalgias, neck pain and neck stiffness. Skin: Negative for color change and rash. Neurological: Negative for dizziness, seizures, syncope, light-headedness and headaches. Psychiatric/Behavioral: Negative for sleep disturbance and dysphoric mood. The patient is not nervous/anxious. Patient Active Problem List Diagnosis Code ??? Depression 311 ??? Irritable bowel syndrome 564.1 ??? GERD (gastroesophageal reflux disease) 530.81 ??? Peptic ulcer disease 533.90 ??? Migraines 346.90 ??? Elevated blood pressure 796.2 ??? Body mass index (BMI) of 39.0-39.9 in adult V85.39 ??? Low back pain 724.2 Current Outpatient Prescriptions Medication Sig Dispense Refill ??? HYDROcodone-acetaminophen 5-325 mg Tablet Take 1-2 tablets by mouth every 8 hours as needed forPain. 45 tablet 0 ??? cyclobenzaprine (FLEXERIL) 10 mg Tablet Take 1 tablet by mouth 3 times daily as needed for Muscle spasms. No driving, no alcohol 60 tablet 0 ??? naproxen (NAPROSYN) 500 mg [...] ??? Penicillins Rash Physical Exam: Filed Vitals: 11/19/14 0854 BP: 159/99 Pulse: 79 Height: 160 cm (5' 3) Weight: 105.235 kg (232 lb) SpO2: 98% Physical Exam Constitutional: She is oriented to [...] Effort normal and breath sounds normal. No respiratory distress. She has no wheezes. She has no rales. Right breast exhibits no inverted nipple, no mass, no nipple discharge, no skinchange and no tenderness. Left breast exhibits no inverted nipple, no mass, no skin change and no te nderness. Breasts are symmetrical. Abdominal: Soft. Bowel sounds are normal. She [...] Assessment/Plan: Nancy was seen today for annual exam and other. Diagnoses and associated orders for this visit: Health care maintenance - patient is due for screening cholesterol and glucose - family history of diabetes - encouraged patient to quit smoking as she has to think about snf health and caring for her grandchildren. - she will do screening labs. - completed paperwork for [facility]- depression under control, no medications at this time. Hypertension- will start to treat with medications -multiple surgeries in past, but should not effect current health Screening for diabetes mellitus - CMP w/fasting Glucose; Future Screening cholesterol level - Lipid panel (fasting); Future Essential hypertension - CMP w/fasting Glucose; Future - lisinopril (PRINIVIL;ZESTRIL) 20 mg Tablet; Take 1 tablet by mouth daily. Screening breast examination - Mammo digital bilateral Screening with CAD; Future Need for tkxdvtkymg-qeckqxu-aaioqvmqa (Tdap) vaccine - Tdap vaccine greater than or equal to 7yo IM -Discussed Health Safety- including seatbelt use, sunscreen use, avoiding distracted driving, and helmet use. documented in this encounter Plan of Treatment Not on file documented as of this encounter Visit Diagnoses Diagnosis Health care maintenance Unspecified general medical examination Screening for diabetes mellitus Screening cholesterol level Screening for lipoid disorders Essential hypertension Unspecified essential hypertension Screening breast examination Other screening breast examination Need for qbrjshiyvm-znxpkiw-alckhfmxx (Tdap) vaccine Need for prophylactic vaccination with combined adxnsbcift-ecuiyec-ptafkecjf (DTP) vaccine documented in this encounter Care Teams Kinesiologist Relationship Specialty Start Date End Date Nubia Conley APRN [facility] [address] [place] [address] PCP - General 01/16/14 01/28/19 documented as of this encounter
--- OUTSIDE RECORDS SUMMARY | 2024-04-03 16:07 | XMS_ITS | Encounter Summary ---
Author Organization [facility] [place] [address] Care Team Providers Care Delivery Engineer Name Role Phone Nubia Botello APRN Primary Care Provider + Reason for Visit * Reason Comments URI Encounter Details Date Type Department Care Team (Late st Contact Info) Description 06/19/2014 6:33 PM EST - 06/19/2014 9:18 PM EST [place] [phone] Rex Kent MD [facility] [place] [address] Viral otitis interna, right Discharge Disposition: Home Social History Tobacco Use [...] Sign Reading Time Taken Comments Blood Pressure 149/93 06/19/2014 9:16 PM EST Pulse 89 06/19/2014 9:16 PM EST Temperature 36.6 ??C (97.9 ??F) 06/19/2014 9:16 PM ES T Respiratory Rate 19 06/19/2014 9:16 PM EST Oxygen Saturation 97% 06/19/2014 9:16 PM EST Inhaled Oxygen Concentration - - Weight 99.8 kg (220 lb) 06/19/2014 6:41 PM EST Height - - Body Mass Index 40.24 03/17/2014 10:28 AM EDT documented in this encounter Discharge Instructions * Discharge Instructions* Andrew Douglas MD - 06/19/2014 9:09 PM EST Images from the original note were not included. [facility] Labyrinthitis: After Your Visit Your Care Instructions Labyrinthitis (say grd-pc-[id number]-THY-tus) is a problem deep inside your inner ear. It happens when the labyrinth gets inflamed. That's the part of your inner ear that helps control your balance. The problem may cause vertigo. Vertigo makes you feel like you're spinning or whirling. You may feel sick to your stomach or vomit. You may lose your hearing for a while. Or you may have a ringing sound in your ears. Most of the time, labyrinthitis goes away on its own. This often takes several weeks. If the problem is caused by bacteria, your doctor will give you antibiotics. But most cases are caused by a virus. A virus can't be cured with antibiotics. Your doctor may give you medicines to help control the nausea and vomiting. Follow-up care is a perkins part of your treatment and safety. Be sure to make and go to all appointments, and call your doctor if you are having problems. It's also a good idea to know your test resultsand keep a list of the medicines you take. How can you care for yourself at home? ?? Try bed rest and keeping your head still for the first few days you have vertigo. This may help the vertigo and reduce nausea and vomiting. ?? Return to your normal activities if vertigo lasts more than a few days. This may be hard, but itusually helps your brain adapt to the vertigo more quickly. As your brain adapts, vertigo will slowly go away. ?? Do what you can to prevent falls. For example, keep your home uncluttered, and use nonskid mats around your house and in your bath. Vertigo makes you more likely to fall. ?? Try balance exercises for vertigo if your doctor suggests it. An example is to stand with your feet together, arms at your sides. Hold this position for 30 seconds. ?? Do the Martinez-Daroff exercise if your doctor suggests it. It may help your brain adapt to vertigo. ?? Sit on the edge of your bed or sofa. ?? Quickly lie down on one side. ?? Stay in this position until the vertigo goes away or for at least 30 seconds. ?? Sit up. If this causes vertigo, wait for it to stop. ?? Do the exercise on the other side. ?? Repeat these steps 10 times. Do the exercise 2 times a day until the vertigo is gone. ?? Take your medicines exactly as prescribed. Call your doctor if you think you are having a problem with your medicine. ?? If your doctor prescribed antibiotics, take them as directed. Do not stop taking them just because you feel better. You need to take the full course of antibiotics. When should you call for help? Call 911 anytime you think you may need emergency care. For example, call if: ?? You passed out (lost consciousness). ?? You have signs of a stroke. These may include: ?? Sudden numbness, paralysis, or weakness in your face, arm, or leg, especially on only one side of your body. ?? New problems with walking or balance. ?? Drooling or slurred speech. ?? New problems speaking or understanding simple statements, or feeling confused. ?? A sudden, severe headache that is different from past headaches. Call your doctor now or seek immediate medical care if: ?? You have new or increased nausea or vomiting. Watch closely for changes in your health, and be sure to contact your doctor if: ?? Your vertigo gets worse. ?? Your vertigo has not gotten better in 2 weeks. Where can you learn more? Visit our health information library at [email or web address] You can also view health information on [employer], your personal patient account. Log in or sign up today. Enter U094 in the search box to learn more about Labyrinthitis: After Your Visit. ?? [id number] [employer]. Care instructions adapted under license by [facility]. This care instruction is for use with your licensed healthcare professional. If you have questions about a medical condition or this instruction, always ask your healthcare professional. [employer] disclaims any warranty or liability for your use of this information. Content Version: 9.9.464987; Last Revised: October 23, 2012 -Return to the ED if your pain worsens or you have fevers, chills or night sweats documented in this encounter Medications at Time [...] as of this encounter ED Notes * Rex Kent MD - 06/19/2014 8:45 PM EST Chief Complaint Patient presents with ??? URI HPI Comments: Pt is a 48 y/o F chronic lower back pain, depression, IBS, GERD, peptic ulcer disease, obesity who presents with right ear pain. Patient states she had a recent cold with a cough, sore throat, and runny nose. Patient has also had some diarrhea but she states it is normal for her given her IBS. She states when she had the cold she had some mild subjective fevers, and feeling warm and then cool at times. She denies any night sweats. Patient has had no drainage from the ear. The history is provided by the patient. Allergies Allergen Reactions ??? Latex Skin cracks and bleeds ??? Penicillins Rash Review of Systems Constitutional: Positive for fever and chills. Negative for diaphoresis. HENT: Positive for congestion, rhinorrhea and sore throat. Eyes: Negative. Respiratory: Positive for cough. Negative for chest tightness and shortness of breath. Cardiovascular: Negative. Gastrointestinal: Positive for diarrhea. Endocrine: Negative. Genitourinary: Negative. Negative for dysuria, urgency and frequency. Musculoskeletal: Negative. Skin: Negative. Allergic/Immunologic: Negative. Neurological: Negative. Hematological: Negative. Psychiatric/Behavioral: Negative. BP 149/93 Pulse 89 Temp(Src) 36.6 ??C (97.9 ??F) (Oral) Resp 19 Wt 99.791 kg (220 lb) SpO2 97% Physical Exam Constitutional: She is oriented to person, place, and time. She appears well- developed and well-nourished. Well appearing. HENT: Head: Normocephalic and atraumatic. Left Ear: External ear normal. Nose: Nose normal. Mouth/Throat: Oropharynx is clear and moist. Small amount of fluid behind TM, no bulging, erythema, or exudate. Eyes: Conjunctivae and EOM are normal. Pupils are equal, round, and reactive to light. Neck: Normal range of motion. Neck supple. Pulmonary/Chest: Effort normal and breath sounds normal. Abdominal: Soft. Bowel sounds are normal. Musculoskeletal: Normal range of motion. Neurological: She is alert and oriented to person, place, and time. Skin: Skin is warm and dry. Procedures MDM ED Course: evalutation Assessment: Viral otitis media. Patient was given a hand written prescription for antipyrine/benzocaine ear drops. Patient advised to drink plenty of fluids and use the ear drops. At this time there is low suspicion for bacterial infection. However, if the pain worsened or she developed fevers, chills, or night sweats she was advised to return to ED or call her doctor. Andrew Douglas MD PGY1 Andrew Douglas MD Resident 06/19/14 5851 ED ATTENDING ADDENDUM: The patient was seen in conjunction with Dr. Douglas, the resident physician. I have independently performed the perkins portions of the history and physical exam. I have discussed the details of the case with the resident and agree with the assessment and plan as described in the resident note above unless noted otherwise below. In summary, this is a 48 yof presenting w/ recent URI sx - congestion, cough - now w/ pain in R ear. Exam notable for a bulging TM on right, although only very minimally erythematous. Pt is nontoxic,afebrile. Anticipate viral URI w/ congestion producing poor drainage of R middle ear. Will provide auralgan for comfort. Final Assessment: R otalgia Final Disposition: home Rex Kent MD 06/20/14 0530 * Kadeem Rosario RN - 06/19/2014 8:00 PM EST States she coughed so much and so hard she hurt her back and was incontinent of urine. documented in this encounter Miscellaneous Notes * ED Triage - Tammy Sheridan RN - 06/19/2014 6:43 PM EST Pt. Here with URI symptoms including right earache, ST and cough and congestion since . documented in this encounter Plan of Treatment Not on file documented as of this encounter Visit Diagnoses Diagnosis Viral otitis interna, right documented in this encounter Care Teams Delivery Engineer Relationship Specialty Start Date End Date Nubia Botello, GARY [facility] [place] [address] PCP - General 01/16/14 01/28/19 documented as of this encounter
--- OUTSIDE RECORDS SUMMARY | 2024-04-03 16:07 | XMS_ITS | Encounter Summary ---
Author Organization [facility] Address [facility] [place] [address] Care Team Providers Care Lumber Checker Name Role Phone Nubia Botello FLY SETTER Primary Care Provider + Encounter Details Date Type Department Care Team (Late st Contact Info) Description 05/13/2000 Orders Only Radiology and Cardiology Results [address] [place] [address] Apd Conversion, Results Provider, Social [...] Procedure Name Priority Date/Time Associated Diagnosis Comments TSH Routine 05/13/2000 4:15 PM EST documented in this encounter Results * (ABNORMAL) TSH (05/13/2000 4:15 PM EST) Thyroid Stimulating Hormone 2.28(Exte rnal Lab) 0.46 - 4.68 mIU/L SARAH WALSH CONVERSION 05/13/2000 4:15 PM EST Results Provider Apd Conversion MD MARIA THURMAN ORDERABLES SARAH WALSH CONVERSION documented in this encounter Visit Diagnoses Not on filedocumented in this encounter Care Teams Lumber Checker Relationship Specialty Start Date End Date Nubia Botello, FLY SETTER [facility] [address] [address] PCP - General 01/16/14 01/28/19 documented as of this encounter
--- OUTSIDE RECORDS SUMMARY | 2024-04-03 16:07 | XMS_ITS | Encounter Summary ---
Author Organization [facility] [place] [address] Care Team Providers Care Warehouse Sorter Name Role Phone Rosmery Nubia Lopez APRN Primary Care Provider + Reason for Visit * Reason Onset Date Comments Medication Refill 05/11/2013 Encounter Details Date Type Department Care Team (Late st Contact Info) Description 05/11/2013 Refill Family Medicine at [facility] [address] [place] [address] Nubia Botello [facility] [address] [address] Social History Tobacco Use Types Packs/Day Years [...] on filedocumented in this encounter Care Teams Warehouse Sorter Relationship Specialty Start Date End Date Nubia Botello [employer] [address] [place] [address] PCP - General 04/21/13 12/21/13 documented as of this encounter
--- OUTSIDE RECORDS SUMMARY | 2024-04-03 16:07 | XMS_ITS | Encounter Summary ---
Author Organization [facility] [place] [address] Care Team Providers Care Ring Making Machine Operator Name Role Phone None Primary Care Provider Unavailabl e Reason for Visit * Reason Comments Throat Pain Encounter Details Date Type Department Care Team (Late st Contact Info) Description 04/14/2013 3:49 PM EDT - 04/14/2013 5:19 PM EDT [place] [address] [place] [address] Arvind Munoz MD [facility] [place] [address] Strep pharyngitis Discharge Disposition: Home Social History Tobacco Use [...] Sign Reading Time Taken Comments Blood Pressure 147/84 04/14/2013 4:51 PM EDT Pulse 85 04/14/2013 4:51 PM EDT Temperature 36.7 ??C (98.1 ??F) 04/14/2013 4:51 PM ED T Respiratory Rate 20 04/14/2013 4:51 PM EDT Oxygen Saturation 97% 04/14/2013 4:51 PM EDT Inhaled Oxygen Concentration - - Weight - - Height - - Body Mass Index - - documented in this encounter Discharge Instructions * Discharge Instructions* Tyrel Bacon PA - 04/14/2013 4:36 PM EDT Use oxycodone as prescribed at nighttime only. Alternate ibuprofen 600 mg with acetaminophen 650 mg every 3-4 hours. Continue Zithromax as prescribed Please smoke as little as possible Reevaluate with any worsening symptoms. * Attachments The following attachments cannot be sent through Care Everywhere. * STREP THROAT: AFTER YOUR VISIT (CROATIAN) documented in this encounter Medications at Time of Discharge Medication Sig Dispensed Refills Start Date End Date OXYcodone (ROXICODONE) 5 mg immediate release tablet Take 1 tablet by mouth nightly as needed for Pain. 5 tablet 0 04/14/2013 04/21/2013 azithromycin (ZITHROMAX) 250 mg tablet Take 1 tablet by mouth daily for 4 days. Day1:take 2 tablets daily, Day 2-5:Take one tablet daily 4 tablet 0 04/14/2013 04/18/2013 documented as of this encounter ED Notes * Elli Cooney RN - 04/14/2013 5:05 PM EDT History per triage note. Throat is reddened and patient states the tylenol and advil are not helping the pain. * Tyrel Bacon PA - 04/14/2013 4:39 PM EDT Chief Complaint Patient presents with ??? Throat Pain HPI 47-year-old female comes in today for reevaluation of a sore throat. She was seen here in the emergency room yesterday and diagnosed with strep pharyngitis. She has been on a azithromycin and has taken 2 doses. She says she continues with pain. It hurts more to swallow. She feels that her voice is clear. She's not had any fevers or chills. Denies rash, nausea, or vomiting. She still does feel somewhat rundown achy. She is using Tylenol [id number] for pain, but it is not. Helpful. She doescontinue to smoke although that is greatly reduced. She denies any other symptoms at this time and is here primarily for pain control. Allergies Allergen Reactions ??? Latex Skin cracks and bleeds ??? Penicillins Rash Review of Systems Constitutional: Negative for fever. HENT: Positive for sore throat. Negative for trouble swallowing, neck pain and neck stiffness. Gastrointestinal: Negative for nausea and vomiting. Musculoskeletal: Negative for back pain. Skin: Negative for rash and wound. Physical Exam Nursing note and vitals reviewed. Constitutional: She is oriented to person, place, and time. She appears well- developed and well-nourished. HENT: Head: Normocephalic and atraumatic. Right Ear: External ear normal. Left Ear: External ear normal. Nose: Nose normal. Mouth/Throat: Mucous membranes are normal. Posterior oropharyngeal erythema present. No oropharyngeal exudate, posterior oropharyngeal edema or tonsillar abscesses. The patient's oropharynx is erythematous and there is some mild tonsillar hypertrophy. About 2+. There is no unilateral swelling, or abnormality of the soft palate to indicate peritonsillar abscess. There no petechiae. No exudate. Eyes: Conjunctivae normal are normal. Neck: Normal range of motion. Lymphadenopathy: She has cervical adenopathy (Mild submandibular). Neurological: She is alert and oriented to person, place, and time. Skin: Skin is warm and dry. Psychiatric: She has a normal mood and affect. Her behavior is normal. Procedures MDM ED Course: The patient was evaluated as above. She will continue a azithromycin at this time. She'll be given oxycodone to use at nighttime for pain control and otherwise start anti-inflammatories. Ibuprofen 600 mg every 6 hours with food. She can alternate Tylenol with this. She was encouraged to not smoke, particularly while she is ill. Reevaluate with any worsening symptoms. She was given Decadron 10 mg IM here to help with inflammation in the posterior of her next period Tyrel Bacon PA 04/14/13 0869 documented in this encounter Miscellaneous Notes * Miscellaneous - Provider, Scanning - 04/14/2013 9:24 PM EDT * ED Triage - Maddie Blair, RN - 04/14/2013 4:10 PM EDT Pt was seen in ED yesterday, diagnosed with strep Oral ABX given Pts chief complaint is pain control Pt speaking in full sentences Tonsils were visulaized, not touching, but red. Pt reports that tylenol and motrin are not controlling pain level documented in this encounter Plan of Treatment Not on file documented as of this encounter Visit Diagnoses Diagnosis Strep pharyngitis Streptococcal sore throat documented in this encounter Administered Medications Inactive Administered Medications - up to 3 most recent administrations Medication Order MAR Action Action Date Dose Rate Site dexamethasone (DECADRON) injection 10 mg 10 mg, Intramuscular, ONCE, 1 dose, On Sat04/14/13 at 1700 Given 04/14/2013 5:08 PM EDT 10 mg documented in this encounter Active and Recently Administered Medications Times are shown in EDT. Scheduled Medication Order 04/12/2013 04/13/2013 04/14/2013 dexamethasone (DECADRON) injection 10 mg (COMPLETED) 10 mg, Intramuscular, ONCE, 1 dose, On Sat04/14/13 at 1700 1708 (Given - Provid er: Elli Cooney RN) documented in this encounter Care Teams Ring Making Machine Operator Relationship Specialty Start Date End Date None None PCP - General 03/01/13 04/20/13 documented as of this encounter
--- OUTSIDE RECORDS SUMMARY | 2024-04-03 16:07 | XMS_ITS | Encounter Summary ---
Author Organization [facility] [place] [address] Care Team Providers Care Sheet Metal Duct Installer Apprentice Name Role Phone Nubia Botello GARY Primary Care Provider + Reason for Referral * Physical Therapy (Routine) - Closed Specialty Diagnoses / Procedures Referred By Contac t Referred To Contact Physical Therapy Diagnoses Midline low back pain with sciatica, sciatica laterality unspecified Eufemia Jose PLEAT TAPER [facility] [place] [address] [facility] [place] [address] Referral ID Status Reason Start Date Expiration Date V isits Requested Visits Authorized [id number] Closed Evaluate and Treat 08/27/2014 08/27/2015 12 12 Reason for Visit * Reason Comments Low Back Pain With Radicular Pain Encounter Details Date Type Department Care Team (Late st Contact Info) Description 08/27/2014 7:35 AM EST Office Visit [place] [phone] Eufemia Jose [facility] [place] [address] Midline low back pain with sciatica, sciatica [...] Sign Reading Time Taken Comments Blood Pressure - - Pulse - - Temperature - - Respiratory Rate - - Oxygen Saturation - - Inhaled Oxygen Concentration - - Weight 103.9 kg (229 lb) 08/27/2014 8:06 AM EST Height 165.1 cm (5' 5) 08/27/2014 8:06 AM EST Body Mass Index 38.11 08/27/2014 8:06 AM EST documented in this encounter Progress Notes * Eufemia Jose, PLEAT TAPER - 08/27/2014 8:25 AM EST Chief complaint: Chief Complaint Patient presents with ??? Low Back Pain With Radicular Pain History of present illness:This patient is a 48 y.o. 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 The patient was trying to assist her but then started to resist by pushing against her and she felt a pop in her back. Since then she's had back pain and bilateral left greater than right buttock and leg pain. She has tried oral steroids, narcotics, pain medication, anti-inflammatories and steroids and muscle relaxants and still reports her pain to be 8 on a scale of 10. She cannotsit stand or walk for very long and has done nothing that really makes it any better. She feels some weakness in her legs but this is pain related. There is some occasional numbness in the lateral aspect of the leg. She was exercising and tried to start by doing some things around the house including sleeping but that has been painful. 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 She has a bout [id number] history of smoking was advised to quit. She does not use alcohol. Problem List: Patient Active Problem List Diagnosis Code ??? Depression 311 ??? Irritable bowel syndrome 564.1 ??? GERD (gastroesophageal reflux disease) 530.81 ??? Peptic ulcer disease 533.90 ??? Migraines 346.90 ??? Elevated blood pressure 796.2 ??? Body mass index (BMI) of 39.0-39.9 in adult V85.39 ??? Low back pain 724.2 Review of Systems:positive for night sweats and urinary urgency but negative for other GI, , constitutional symptoms Medications and allergies were reviewed and updated. Physical Examination:is an obese female age 48. Her shoulders, hips, knees are grossly level to inspection she is mildly tender to palpation. Her gait is nonantalgic and she walk on heels and toes. She has normal strength, sensation, and reflexes. There is no Chan or clonus and Babinski with downgoing toes. Dural tension signs produce back pain only. Diagnostic data:MRI of the lumbar spine was reviewed with her using the computer monitor and does reveal disc degenerative changes mostly at L45 and L5-S1 with her seems to be some enlarged facets with some fluid in him and minor disc bulge without any foraminal or canal compromise. There is absolutely no nerve root impingement noted. Assessment:subacute low back pain, lumbar disc degenerative changes with functional limitation in asmoker Plan:we discussed that she should try to quit smoking. She remains pre- contemplative. We have also discussed that unfort is there is no nerve root impingement there is nothing surgically that could be done to fix her spine and make it better. She also understands that there is also not likely to beany results from injection particularly since she did not respond to oral injections. I do think she should benefit from moving we talked about getting some exercise every day including walking at least 5 minutes to start with an increasing minute a day or so until she is up to at least 15-20 minutes at a time. I also do think she could benefit from a Al[place] based exercise program I've given her referral and finally if that doesn't seem to help I would consider a gap assessment. I would not recommend narcotics on cyber intelligence analyst we discussed this and in general medications her only helpful for flareups and generally don't help with chronic pain. I would like to prevent her from having chronic pain and possible spinal fluid to get her him to some therapy and encouraged her to exercise. All questions were answered we have not scheduled a followup in happy to see her again particularly she's interested in long-term rehabilitation. This note was written with voice recognition software documented in this encounter Plan of Treatment Scheduled Referrals Name Type Priority Associated Diagnoses Orde r Schedule Referral to Physical Therapy Outpatient Referral Routine Midline Low Back Pain With Sciatica, Sciatica Laterality Unspecified Ordered: 08/27/2014 documented as of this encounter Visit Diagnoses Diagnosis Midline low back pain with sciatica, sciatica laterality unspecified documented in this encounter Care Teams Sheet Metal Duct Installer Apprentice Relationship Specialty Start Date End Date Nubia Botello, GARY [facility] [address] [address] PCP - General 01/16/14 01/28/19 documented as of this encounter
--- OUTSIDE RECORDS SUMMARY | 2024-04-03 16:07 | XMS_ITS | Encounter Summary ---
Author Organization [facility] [address] [place] [address] Care Team Providers Care Water Treatment Plant Operator Name Role Phone Nubia Botello APRN Primary Care Provider + Reason for Visit * Reason Comments Leg Pain in middle of night Generalized Body Aches joint pain all ov er Fatigue Headache Loss Of Appetite Polydipsia Encounter Details Date Type Department Care Team (Late st Contact Info) Description 08/03/2013 4:25 PM EST Office Visit Internal Medicine at [facility] [address] [place] [address] Nubia Botello WELLNESS SPA MANAGER [facility] [place] [address] Polydipsia; Prediabetes; Fatigue; Myalgia Discharge Disposition: Home Social History Tobacco Use [...] Sign Reading Time Taken Comments Blood Pressure 136/88 08/03/2013 4:40 PM EST Pulse 91 08/03/2013 4:40 PM EST Temperature 36.6 ??C (97.9 ??F) 08/03/2013 4:40 PM ES T Respiratory Rate 12 08/03/2013 4:40 PM EST Oxygen Saturation 96% 08/03/2013 4:40 PM EST Inhaled Oxygen Concentration - - Weight 101.8 kg (224 lb 6.4 oz) 08/03/2013 4:40 PM EST Height - - Body Mass Index 39.91 04/21/2013 9:58 AM EDT documented in this encounter Progress Notes * Nubia Botello APRN - 08/12/2013 4:40 PM EST Error * Nubia Botello APRN - 08/03/2013 5:01 PM EST Subjective: Patient ID: Nancy Diego is a 47 y.o. female. HPI Comments: She is here today for fatigue and joint pain. She reports that it is a chronic problem for her, but it has been significantly bad in the last couple of days. She reports fatigue and joint pain worse in the last two days. She reports that she felt feverish yesterday, but no today. She also reports increased thirst. She reports significant pain in her legs as well. Leg Pain Headache Associated symptoms include coughing, ear pain (bilateral in last 3 days) and a fever. Pertinent negatives include no rhinorrhea or sore throat. Review of Systems Constitutional: Positive for fever, chills, diaphoresis and fatigue. HENT: Positive for ear pain (bilateral in last 3 days). Negative for sore throat and rhinorrhea. Respiratory: Positive for cough and shortness of breath. Cardiovascular: Negative for chest pain. Gastrointestinal: Positive for diarrhea (history of IBS). Negative for blood in stool. Genitourinary: Negative for dysuria, frequency and decreased urine volume. Skin: Negative for rash. Neurological: Positive for headaches. Objective: Physical Exam Constitutional: She is oriented to person, place, and time. She appears well- developed and well-nourished. HENT: Head: Normocephalic and atraumatic. Mouth/Throat: Oropharynx is clear and moist. Eyes: Conjunctivae normal are normal. Cardiovascular: Normal rate and regular rhythm. Pulmonary/Chest: Effort normal and breath sounds normal. No respiratory distress. She has no wheezes. She has no rales. Abdominal: Soft. Bowel sounds are normal. She exhibits no distension. There is no tenderness. Lymphadenopathy: She has no cervical adenopathy. Neurological: She is alert and oriented to person, place, and time. She displays normal reflexes. No cranial nerve deficit. Skin: Skin is warm and dry. Assessment and Plan: Nancy was seen today for leg pain, generalized body aches, fatigue, headache, loss of appetite and polydipsia. Diagnoses and associated orders for this visit: Polydipsia/Prediabetes - POCT glycated hemoglobin, total (HA1C) - CBC (with Diff); Future - Comprehensive metabolic panel (non-fasting); Future Fatigue/Myalgia - MARCE; Future - Rheumatoid factor, quant; Future - Sedimentation rate; Future - traMADol (ULTRAM) 50 mg tablet; Take 1 tablet by mouth every 6 hours as needed for Pain. - hydroCODone-Acetaminophen (VICODIN) 5-300 mg Tab; Take 1 tablet by mouth nightly as needed. documented in this encounter Plan of Treatment Not on file documented as of this encounter Procedures Procedure Name Priority Date/Time Associated Diagnosis Comments POCT GLYCATED HEMOGLOBIN, TOTAL (HA1C) Routine 08/03/2013 5:22 PM EST Prediabetes documented in this encounter Results * (ABNORMAL) Sedimentation rate (08/11/2013 12:15 PM EST) Sedimentation Rate Automated 26(H) 0 - 20 mm/hr [facility] Blood specimen (specimen) 08/11/2013 12:15 PM EST 08/11/2013 12:25 PM EST Narrative Resulting Agency Comment Spec In Lab Linda Borges MD HEMATOLOGY ORDERABL ES Performing Organization Address [facility] de Phone Number [email or web address] * Rheumatoid factor, quant (08/11/2013 12:15 PM EST) Rheumatoid Factor <10 <=14 IU/mL [facility] [employer] Blood specimen (specimen) 08/11/2013 12:15 PM EST 08/11/2013 12:25 PM EST Narrative Resulting Agency Comment Spec In Lab Linda Borges MD CHEMISTRY ORDERABLE S Performing Organization Address [facility] de Phone Number [email or web address] * MARCE (08/11/2013 12:15 PM EST) MARCE Neg Neg CERNER MILLENNIUM Blood specimen (specimen) 08/11/2013 12:15 PM EST 08/11/2013 2:42 PM EST Narrative Resulting Agency Comment Spec In Lab Linda Borges MD LAB SEND OUT ORDERA BLES CERNER WHITNEYENNIUM * (ABNORMAL) Comprehensive metabolic panel (non-fasting) (08/11/2013 12:15 PM EST) Glucose 119 60 - 199 mg/dL CERNER MILLENNIUM Comment:Diabetes: >=200 mg/d L plus symptoms Blood Urea Nitrogen 17 8 - 18 mg/dL CERNER MILLENNIUM Creatinine 1.00 0.70 - 1.20 mg/dL CERNER MILLENNIUM Comment: Please note that the pediatric reference intervals supplied above were not validated at [facility]. Results from pediatric patients should be interpreted in conjunction to the patient's age, height and muscle mass. Sodium 140 135 - 145 mmol/L CERNER MILLENNIUM Potassium 3.8 3.5 - 5.0 mmol/L CERNER MILLENNIUM Comment: Please note: ??Patients with WBC >100,000 may have falsely elevated Potassium levels. ??For accurate Potassium quantification in these patients send serum separator tube (gold top) for subsequent determinations. ??Contact the Clinical Chemistry Laboratory if there are any questions. Chloride 102 98 - 107 mmol/L CERNER MILLENNIUM Carbon Dioxide 28 22 - 31 mmol/L CERNER MILLENNIUM Anion Gap 10 5 - 15 mmol/L CERNER MILLENNIUM Calcium 9.1 8.5 - 10.5 mg/dL CERNER MILLENNIUM Protein, Total 7.5 6.4 - 8.3 gm/dL CERNER MILLENNIUM Albumin 3.9 3.2 - 5.2 gm/dL CERNER MILLENNIUM Aspartate Aminotransferase 25 0 - 30 unit/L CERNER MILLENNIUM Alanine Aminotransferase 23 0 - 30 unit/L CERNER MILLENNIUM Alkaline Phosphatase 115(H) 40 - 104 unit/L CERNER MILLENNIUM Bilirubin, Total 0.3 0.2 - 1.3 mg/dL CERNER MILLENNIUM Bilirubin, Direct 0.1 0.0 - 0.3 mg/dL CERNER MILLENNIUM Est Glomerular Filtration Rate 60 >=60 CERNER MILLENNIUM Comment: This estimated GFR (eGFR) value was [...] the following links into your internet browser. http://www.nkdep.nih.gov/lab-evaluation.shtml http://www.kidney.org/professionals/ Blood specimen (specimen) 08/11/2013 12:15 PM EST 08/11/2013 12:25 PM EST Narrative Resulting Agency Comment Spec In Lab Linda Borges MD CHEMISTRY ORDERABLE S CERNER MILLENNIUM * (ABNORMAL) CBC (with Diff) (08/11/2013 12:15 PM EST) White Blood Cell 11.5(H) 4.0 - 10.0 x10(3)/mc L CERNER MILLENNIUM Red Blood Cell 4.69 3.93 - 5.22 x10(6)/mc L CERNER MILLENNIUM Hemoglobin 13.6 11.2 - 15.7 gm/dL CERNER MILLENNIUM Hematocrit 39.8 34.0 - 45.0 % CERNER MILLENNIUM Mean Cell Volume 84.9 79.0 - 94.0 fL CERNER MILLENNIUM Mean Cell Hemoglobin 29.0 26.6 - 32.2 pg CERNER MILLENNIUM Mean Cell Hemoglobin Concentration 34.2 32.0 - 36.5 gm/dL CERNER MILLENNIUM Platelet 319 145 - 370 x10(3)/mc L CERNER MILLENNIUM RDW Standard Deviation 41.7 35.0 - 46.0 fL CERNER MILLENNIUM RDW coefficient of variation 13.6 10.9 - 14.4 % CERNER MILLENNIUM Mean Platelet Volume 9.5 9.0 - 12.0 fL CERNER MILLENNIUM Blood specimen (specimen) 08/11/2013 12:15 PM EST 08/11/2013 12:25 PM EST Narrative Resulting Agency Comment Spec In Lab Linda Borges MD HEMATOLOGY ORDERABL ES [facility] * (ABNORMAL) POCT glycated hemoglobin, total (HA1C) (08/03/2013 5:22 PM EST) Hemoglobin A1C, POC 6.32(A) 4.3 - 6.1 % Blood specimen (specimen) 08/03/2013 5:22 PM EST Linda Borges MD POINT OF CARE TEST ORDERABLES documented in this encounter Visit Diagnoses Diagnosis Polydipsia Prediabetes Other abnormal glucose Fatigue Other malaise and fatigue Myalgia Mylagia and myositis, unspecified documented in this encounter Care Teams Water Treatment Plant Operator Relationship Specialty Start Date End Date Nubia Botello, WELLNESS SPA MANAGER [facility] [address] [place] [address] PCP - General 04/21/13 12/21/13 documented as of this encounter
--- OUTSIDE RECORDS SUMMARY | 2024-04-03 16:07 | XMS_ITS | Encounter Summary ---
Author Organization [facility] [place] [address] Care Team Providers Care Feed Blender Name Role Phone Nubia Botello APRN Primary Care Provider + Reason for Visit * Reason Onset Date Comments Triage 08/14/2013 Encounter Details Date Type Department Care Team (Late st Contact Info) Description 08/14/2013 Telephone Internal Medicine at [facility] [address] [place] [id number] Nubia Botello APRN [facility] [place] [address] Triage Social History Tobacco Use Types Packs/Day Years [...] Telephone Encounter - Nubia Botello APRN - 08/17/2013 8:16 AM EST Spoke with her and recommended that she come in for a visit to be seen in clinic given that pain sounded different than what was discussed in the clinic at last visit. * Telephone Encounter - Marnie Rosado LPN - 08/14/2013 4:25 PM EST Forwarded message to provider * Telephone Encounter - Belem Moore - 08/14/2013 3:45 PM EST Pt states she was givin medication for arthritis is not working ( Vicodin) and Tramadol she states the pain is increasing and she also wants to know her blood test results please call her at home. documented in this encounter Plan of Treatment Not on file documented as of this encounter Visit Diagnoses Not on filedocumented in this encounter Care Teams Feed Blender Relationship Specialty Start Date End Date Nubia Botello, GARY [facility] [address] [place] [address] PCP - General 04/21/13 12/21/13 documented as of this encounter
--- OUTSIDE RECORDS SUMMARY | 2024-04-03 16:07 | XMS_ITS | Encounter Summary ---
Author Organization [facility] [place] [address] Care Team Providers Care Power Transmission Engineer Name Role Phone Nubia Conley APRN Primary Care Provider + Reason for Visit * Reason Comments Follow-up Encounter Details Date Type Department Care Team (Late st Contact Info) Description 08/18/2013 9:45 AM EST Follow-Up Internal Medicine at [facility] [address] [place] [id number] Nubia Conley APRN [facility] [address] Health care maintenance (Primary Dx) Discharge Disposition: Home Social History [...] Sign Reading Time Taken Comments Blood Pressure 126/78 08/18/2013 10:06 AM EST Pulse 85 08/18/2013 10:06 AM EST Temperature 36.7 ??C (98 ??F) 08/18/2013 10: 06 AM EST Respiratory Rate 12 08/18/2013 10:0 6 AM EST Oxygen Saturation 97% 08/18/2013 10: 06 AM EST Inhaled Oxygen Concentration - - Weight 100.1 kg (220 lb 9.6 oz) 014 10:06 AM EST Height - - Body Mass Index 39.23 04/21/2013 9:58 AM EDT documented in this encounter Progress Notes * Nubia Conley APRN - 08/18/2013 10:14 AM EST PCP: NUBIA CONLEY APRN Chief Complaint Patient presents with ??? Follow-up SUBJECTIVE: Nancy Diego is a 47 y.o. female who presents for follow up for her pain. She reports that she had vomiting and diarrhea over the weekend. She reports that this is improving. She reports that she is having pain in the lower back and down into her left leg. She reports that she feels the pain into her knee and ankle. She reports that it goes right to foot. She reports thatit is worse standing, minimal relief by sitting. She reports that she has to put something between. She describes them as throbbing tooth ache pain. She has tried the tramadol for the pain, it does not really ease the pain. She reports that the vicodin did not give a lot of relief. She did try the vicodin and took half dose and made her nausea. She states that flexeril made her sleepy. ROS: GEN: Denies fevers, chills, lightheadedness or dizziness CARDIO: Denies palpitations, or chest discomfort RESP: Denies shortness of breath, LAYNE, cough Allergies Allergen Reactions ??? Latex Skin cracks and bleeds ??? Penicillins Rash Current Outpatient Prescriptions Medication Sig Dispense Refill ??? traMADol (ULTRAM) 50 mg tablet Take 1 tablet by mouth every 6 hours as needed for Pain. 30 tablet 0 ??? albuterol (PROAIR HFA) 90 mcg/actuation inhaler Inhale 2 puffs into the lungs every 4 hours as needed for Wheezing. Use with spacer 1 Inhaler 1 ??? hydroCODone-Acetaminophen (VICODIN) 5-300 mg Tab Take 1 tablet by mouth nightly as needed. 10 tablet 0 ??? omeprazole (PRILOSEC OTC) 20 mg tablet Take 1 tablet by mouth daily. 30 tablet 11 Patient Active Problem List Diagnosis Code ??? Depression 311 ??? Irritable bowel syndrome 564.1 ??? GERD (gastroesophageal reflux disease) 530.81 ??? Peptic ulcer disease 533.90 ??? Migraines 346.90 ??? Elevated blood pressure 796.2 OBJECTIVE: Filed Vitals: 08/18/13 1006 BP: 126/78 Pulse: 85 Temp: 36.7 ??C (98 ??F) TempSrc: Oral Resp: 12 Weight: 100.064 kg (220 lb 9.6 oz) SpO2: 97% PHYSICAL EXAM: GENERAL APPEARANCE: alert, oriented, in no acute distress CARDIO: RRR, no murmurs. LUNGS: CTA, no rales, rhoncii, or wheezes. Back is straight with focal tenderness on palpation of the lower back. . Full range of motion on forward flexion, back extension, lateral flexion/extension, rotation with discomfort. Straight leg raise postive; DTR's 2+/4+, symmetrical lower extremities. ASSESSMENT & PLAN: Nancy was seen today for follow-up . Diagnoses and associated orders for this visit: Health care maintenance - Mammo digital bilateral Screening with CAD; Future Back pain - will try prednisone for pain to see if will give some relief. - also discussed physical therapy and ibuprofen TID for pain. Will give small amount of percocet instead of vicodin to see if helps with nausea. - oxyCODONE-acetaminophen (PERCOCET) 5-325 mg per tablet; Take 0.5-1 tablets by mouth nightly. - cyclobenzaprine (FLEXERIL) 5 mg tablet; Take 1 tablet by mouth 3 times daily as needed for Musclespasms. - ibuprofen (MOTRIN) 800 mg tablet; Take 1 tablet by mouth every 6 hours as needed for Pain. - predniSONE (DELTASONE) 20 mg tablet; Take 2 tablets by mouth daily for 5 days. documented in this encounter Plan of Treatment Not on file documented as of this encounter Visit Diagnoses Diagnosis Health care maintenance- Primary Unspecified general medical examination documented in this encounter Care Teams Power Transmission Engineer Relationship Specialty Start Date End Date Nubia Conley APRN [facility] [address] [facility] [address] PCP - General 04/21/13 12/21/13 documented as of this encounter
--- OUTSIDE RECORDS SUMMARY | 2024-04-03 16:07 | XMS_ITS | Encounter Summary ---
Author Organization [facility] [place] [address] Care Team Providers Care Catalyst Operator Gasoline Name Role Phone Nubia Conley APRN Primary Care Provider + Reason for Visit * Reason Comments URI x 2 weeks Encounter Details Date Type Department Care Team (Late st Contact Info) Description 03/17/2014 10:45 AM EDT Follow-Up Internal Medicine at [address] [address] Nubia Conley APRN [facility] [place] [address] Migraines; Acute maxillary sinusitis Discharge Disposition: Home Social History Tobacco Use [...] Sign Reading Time Taken Comments Blood Pressure 134/71 03/17/2014 10:28 AM EDT le ft arm Pulse 91 03/17/2014 10:28 AM EDT Temperature 36.7 ??C (98.1 ??F) 03/17/2014 10:28 AM E DT Respiratory Rate 16 03/17/2014 10:28 AM EDT Oxygen Saturation 99% 03/17/2014 10:28 AM EDT Inhaled Oxygen Concentration - - Weight 103.9 kg (229 lb) 03/17/2014 10:28 AM EDT Height 157.5 cm (5' 2) 03/17/2014 10:28 AM EDT Body Mass Index 41.88 03/17/2014 10:28 AM EDT documented in this encounter Patient Instructions * Patient Instructions* Kerri Tomlin CMA - 03/17/2014 10:34 AM EDT I would like you to sign up for myD-H, which will give you secure online access to your electronic medical record at [facility] and the ability to communicate with your health care team whenand where it???s most convenient for you. With myD-H you will be able to: - look at parts of your medical record including test results and office notes - send and receive messages to/from me and your other providers - renew prescriptions - schedule appointments. To sign up, go to [email or web address] and click I have an activation code and follow the instructions. Here is your activation code: [email or web address] Expires: 05/01/2014 10:35 AM Remember, myD-H is NOT for urgent needs! Always dial 911 for medical emergencies. documented in this encounter Progress Notes * Nubia Conley APRN - 03/17/2014 11:04 AM EDT PCP: NUBIA CONLEY APRN Chief Complaint Patient presents with ??? URI x 2 weeks SUBJECTIVE: Nancy Diego is a 48 y.o. female who presents with URI symptoms that have been ongoing for two weeks. She reports that she had runny nose initially. She got a sore throat last night. She has had fever and chills. Her last fever was two nights ago. She feels achy all over. She reports all of her joints hurt. She reports that the aching had gotten worse recently. She reports that over the weekend she thought that she was getting better, and then started feeling worse. Review of Systems Constitutional: Negative for fever and chills. HENT: Positive for congestion, rhinorrhea and sinus pressure. Respiratory: Positive for cough and shortness of breath. Gastrointestinal: Positive for nausea, vomiting and diarrhea. Skin: Negative for rash. Neurological: Positive for dizziness, weakness, light-headedness and headaches. Location- Quality- Severity- Timing- Modifying factors- Associated symptoms- Duration- Allergies Allergen Reactions ??? Latex Skin cracks and bleeds ??? Penicillins Rash Current Outpatient Prescriptions Medication Sig Dispense Refill ??? ibuprofen (ADVIL;MOTRIN) 600 mg tablet Take 600 mg by mouth every 6 hours as needed. ??? oxyCODONE-acetaminophen (PERCOCET) 5-325 mg per tablet Take 1-2 tablets by mouth every 6 hours as needed for Pain. No driving, no alcohol, no extra tylenol 5 tablet 0 ??? cyclobenzaprine (FLEXERIL) 10 mg tablet Take 1 tablet by mouth 3 times daily as needed for Muscle spasms. No driving, no alcohol 5 tablet 0 ??? acetaminophen (TYLENOL) 500 mg [...] Low back pain 724.2 OBJECTIVE: Filed Vitals: 03/17/14 1028 BP: 134/71 Pulse: 91 Temp: 36.7 ??C (98.1 ??F) TempSrc: Oral Resp: 16 Height: 157.5 cm (5' 2) Weight: 103.874 kg (229 lb) SpO2: 99% PHYSICAL EXAM: Physical Exam Constitutional: She is oriented to person, place, and time. She appears well- developed and well-nourished. HENT: Head: Atraumatic. Macrocephalic. Right Ear: External ear normal. Left Ear: External ear normal. Nose: Right sinus exhibits maxillary sinus tenderness. Left sinus exhibits maxillary sinus tenderness. Mouth/Throat: Oropharynx is clear and moist. Eyes: Conjunctivae normal are normal. Pupils are equal, round, and reactive to light. Cardiovascular: Normal rate, regular rhythm and normal heart sounds. Pulmonary/Chest: Effort normal. No respiratory distress. She has wheezes. She has no rales. Lymphadenopathy: She has no cervical adenopathy. Neurological: She is alert and oriented to person, place, and time. Skin: Skin is warm and dry. Psychiatric: She has a normal mood and affect. ASSESSMENT & PLAN: Nancy was seen today for uri. Diagnoses and associated orders for this visit: Acute maxillary sinusitis - azithromycin (ZITHROMAX Z-ARIANA) 250 mg Tablet; Take by mouth. Take 2 tablets (500mg) on day 1 and then 1 tablet daily (250mg) for the next 4 days.. Migraines - amitriptyline (ELAVIL) 25 mg Tablet; Take 1 tablet by mouth nightly. - SUMAtriptan (IMITREX) 50 mg Tablet; Take 1 tablet by mouth as needed for Migraine. If not better in 2 hours, take one more tablet. No more than 2 tablets in 24 hours. - will start elavil for prophylactic treatment and imitrex for acute flares of migraines - encouraged patient to get regular sleep. She works nights so has days where she only sleeps about4 hours. documented in this encounter Plan of Treatment Not on file documented as of this encounter Visit Diagnoses Diagnosis Migraines Migraine, unspecified, without mention of intractable migraine without mention of status migrainosus Acute maxillary sinusitis documented in this encounter Care Teams Catalyst Operator Gasoline Relationship Specialty Start Date End Date Nubia Conley APRN [facility] [address] [place] [address] PCP - General 01/16/14 01/28/19 documented as of this encounter
--- OUTSIDE RECORDS SUMMARY | 2024-04-03 16:07 | XMS_ITS | Encounter Summary ---
Author Organization [facility] [place] [address] Care Team Providers Care Art Museum Aide Name Role Phone Nubia Botello APRN Primary Care Provider + Reason for Visit * Reason Comments Back Pain Encounter Details Date Type Department Care Team (Late st Contact Info) Description 07/03/2013 10:08 PM EST - 07/03/2013 11:29 PM EST [place] [id number] Roscoe Tripp MD [facility] [place] [address] Sprain of lumbar region, initial encounter (Primary Dx) Discharge Disposition: Home Social History [...] Sign Reading Time Taken Comments Blood Pressure 135/74 07/03/2013 11:23 PM EST Pulse 79 07/03/2013 11:23 PM EST Temperature 36.5 ??C (97.7 ??F) 07/03/2013 11:[address] Respiratory Rate 18 07/03/2013 11:23 PM EST Oxygen Saturation 95% 07/03/2013 11:23 PM EST Inhaled Oxygen Concentration - - Weight - - Height - - Body Mass Index - - documented in this encounter Discharge Instructions * Discharge Instructions* Roscoe Tripp MD - 07/03/2013 11:14 PM EST Ice to your back, short course of narcotics, Tylenol 1 g every 6 hours for your pain Flexeril for muscle spasms and a Medrol Dosepak for the nerve pain down her leg if you develop true leg weakness loss of bowel or bladder control he needs return emergency room. * Attachments The following attachments cannot be sent through Care Everywhere. * BACK STRAIN: AFTER YOUR VISIT (SRI LANKAN) * [id number] PLAN FOR PEOPLE WITH LOW BACK PAIN: AFTER YOUR VISIT (SRI LANKAN) documented in this encounter Medications at Time of Discharge Medication Sig Dispensed Refills Start Date End Date methylPREDNISolone (MEDROL DOSPACK) 4 mg tablet Use as directed on product package. 21 tablet 0 07/03/2013 08/03/2013 cyclobenzaprine (FLEXERIL) 10 mg tablet Take 1 tablet by mouth 3 times daily as needed for Muscle spasms. 12 tablet 0 07/03/2013 08/03/2013 OXYcodone-acetaminophe n (PERCOCET) 5-325 mg per tablet Take 1-2 tablets by mouth every 4 hours as needed for Pain. No driving, no alcohol, no extra tylenol 12 tablet 0 07/03/2013 08/03/2013 FLUoxetine (PROZAC) 20 mg capsule Take 1 capsule by mouth daily. Take one capsul daily in the morning and increase to two tablets after two weeks if well tolerated. 60 capsule 0 05/11/2013 08/03/2013 documented as of this encounter ED Notes * Roscoe Tripp MD - 07/03/2013 11:15 PM EST Chief Complaint Patient presents with ??? Back Pain HPI Nancy Diego is a 47 y.o. who presents to the Emergency Department, with back pain. 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 She is a difficult time bearing weight on the left leg secondary to pain but no true weakness no bowel or bladder discomfort no abdominal pain patient denies any fevers or chills no direct lumbar spine trauma patient did not fall to the ground. Patient has no previous history of surgical interventions on her low back. Patient does have a history of peptic ulcer disease and is on Prilosec she has been taking nonsteroidals for her pain without relief denies any GI upset or other concerns. Allergies Allergen Reactions ??? Latex Skin cracks and bleeds ??? Penicillins Rash Review of Systems Constitutional: Negative for fever, chills, activity change, appetite change and unexpected weight change. HENT: Negative for hearing loss, congestion, sore throat and trouble swallowing. Eyes: Negative for photophobia and visual disturbance. Respiratory: Negative for cough, chest tightness, shortness of breath and wheezing. Cardiovascular: Negative for chest pain, palpitations and leg swelling. Gastrointestinal: Negative for nausea, vomiting, abdominal pain and abdominal distention. Genitourinary: Negative for dysuria, urgency, frequency and difficulty urinating. Musculoskeletal: Positive for back pain. Negative for joint swelling and arthralgias. Skin: Negative for color change and rash. Neurological: Positive for numbness. Negative for dizziness, syncope, weakness, light-headedness and headaches. Hematological: Negative for adenopathy. Does not bruise/bleed easily. Psychiatric/Behavioral: Negative for confusion and decreased concentration. Physical Exam Nursing note and vitals reviewed. Constitutional: She appears well-developed and well-nourished. No distress. HENT: Head: Normocephalic and atraumatic. Eyes: Pupils are equal, round, and reactive to light. Neck: Neck supple. Cardiovascular: Normal rate. Pulmonary/Chest: Effort normal. Abdominal: Soft. Bowel sounds are normal. She exhibits no distension. There is no tenderness. Musculoskeletal: The patient has significant paraspinal discomfort in the lumbar area with trigger points radiating pain down to her left buttock. Patient is able to heel and toe stand without true weakness or patellar tendon reflex and ankle jerks are normal. Sensation is intact over lateral aspect of her left legalthough she does describe some tingling sensation Neurological: She is alert. She displays normal reflexes. She exhibits normal muscle tone. Skin: Skin is warm and dry. No rash noted. She is not diaphoretic. Procedures MDM Number of Diagnoses or Management Options Sprain of lumbar region, initial encounter: Diagnosis management comments: I discussed the aftercare with the patient, I reviewed her past medical history, medication list an allergy list reviewed are social history. Exam reveals what appears to be lumbar strain without any red flags. ED Course: Impression: Lumbar strain with radiculopathy no actual weakness patient retreated with a Medrol Dosepak and Flexeril for muscle spasms short course of Percocet for pain and Tylenol ongoing do not recommend nonsteroidals Roscoe Tripp MD 07/03/13 2319 * Conner Brandon RN - 07/03/2013 11:12 PM EST Patient has been seen by an ED physician. Awaiting disposition. documented in this encounter Miscellaneous Notes * Discharge Summary - Provider, Scanning - 07/06/2013 9:28 AM EST * Miscellaneous - Provider, Scanning - 07/03/2013 11:38 PM EST * ED Triage - Hui Hoskins RN - 07/03/2013 10:32 PM EST Patient states that she injured herself at work 3-4 days ago when a patient pulled her while she was trying to assist him OOB. Her back has been aching since then and she has been taking ibuprofen and tylenol with little relief. Today she was assisting lift a patient and she felt something pull in her lower back. She now c/o lower back pain that radiates through her left leg. She states that her left leg tingles and her left buttocks aches. She rates the pain 6- 12/31. +CSM, + pulses. * ED Triage - Mame Nguyen RN - 07/03/2013 10:11 PM EST Pt c/o lower back pain X 4 days. 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 She c/o difficulty ambulating. Denies numbness or tingling. Pt appears to be uncomfortable. documented in this encounter Plan of Treatment Not on file documented as of this encounter Visit Diagnoses Diagnosis Sprain of lumbar region, initial encounter- Primary documented in this encounter Administered Medications Inactive Administered Medications - up to 3 most recent administrations Medication Order MAR Action Action Date Dose Rate Site TAKE HOME vial of 5, oxycodone-acetaminophen (PERCOCET) 5-325 mg tablet 1-2 tablet, Oral, EVERY 6 HOURS PRN, Starting on 07/03/13 at 2309, Until 07/04/13 at 0129, Pain, Maximum dose of acetaminophen is 4000 mg from all sources in 24 hours., STAT Given 07/03/2013 11:26 PM EST 1 tablet documented in this encounter Active and Recently Administered Medications Times are shown in EST. PRN Medication Order 07/01/2013 07/02/2013 07/03/2013 TAKE HOME vial of 5, oxycodone-acetaminophen (PERCOCET) 5-325 mg tablet (CANCELED) 1-2 tablet, Oral, EVERY 6 HOURS PRN, Starting on Sat07/03/13 at 2309, Until 07/04/13 at 0129, Pain, Maximum dose of acetaminophen is 4000 mg from all sources in 24 hours., STAT 2326 (Given - Provid er: Conner Brandon RN - Comment: dispensed as ordered/signed by Dr. Tripp) documented in this encounter Care Teams Art Museum Aide Relationship Specialty Start Date End Date Nubia Botello, [facility] [address] [place] [address] PCP - General 04/21/13 12/21/13 documented as of this encounter
--- OUTSIDE RECORDS SUMMARY | 2024-04-03 16:07 | XMS_ITS | Encounter Summary ---
Author Organization [facility] [place] [address] Care Team Providers Care Sanitarian Inspector Name Role Phone Nubia Botello GARY Primary Care Provider + Reason for Visit * Reason Onset Date Comments Medication Problem 08/27/2014 Encounter Details Date Type Department Care Team (Late st Contact Info) Description 08/27/2014 Telephone Internal Medicine at [address] [phone] Krishna Smith Medication Problem Social History Tobacco Use Types [...] * Telephone Encounter - Krishna Smith - 08/27/2014 9:14 AM EST The pt would like to let Nubia Botello that she did visit the spine clinic and they do not prescribe medication. Stated that she was told she needs to go back to her PCP to get refills. The pt states that she will be needing ibuprofen, flexeril and hyrdrocodone. States she is need of pain meds. Please call the pt back if there are any questions. documented in this encounter Plan of Treatment Not on file documented as of this encounter Visit Diagnoses Not on filedocumented in this encounter Care Teams Sanitarian Inspector Relationship Specialty Start Date End Date Nubia Botello APRN [facility] [place] [address] PCP - General 01/16/14 01/28/19 documented as of this encounter
--- OUTSIDE RECORDS SUMMARY | 2024-04-03 16:07 | XMS_ITS | Encounter Summary ---
Author Organization [facility] [place] [address] Care Team Providers Care Switch Crew Supervisor Name Role Phone Nubia Botello APRN Primary Care Provider + Reason for Visit * Reason Onset Date Comments Medication Refill 07/20/2013 Encounter Details Date Type Department Care Team (Late st Contact Info) Description 07/20/2013 [facility] [address] [place] [id number] Nubia Botello APRN [facility] [place] [address] Social History Tobacco Use Types Packs/Day Years [...] encounter Miscellaneous Notes * Telephone Encounter - Gaetano Livingston LPN - 07/20/2013 10:01 AM EST Pt states that she prescribed Albuterol inhaler at a clinic in [facility]. * Telephone Encounter - Belem Moore - 07/20/2013 8:49 AM EST Pt needs refill on her Albuterol inhaler Pt would like it to be filled today if possible please. documented in this encounter Plan of Treatment Not on file documented as of this encounter Visit Diagnoses Not on filedocumented in this encounter Care Teams Switch Crew Supervisor Relationship Specialty Start Date End Date Nubia Botello, LAST MARKER [facility] [address] PCP - General 04/21/13 12/21/13 documented as of this encounter
--- OUTSIDE RECORDS SUMMARY | 2024-04-03 16:07 | XMS_ITS | Encounter Summary ---
Author Organization [facility] Address [facility] [place] [address] Care Team Providers Care Network Planner Name Role Phone Nubia Botello APRN Primary Care Provider + Reason for Visit * Reason Comments Back Pain Encounter Details Date Type Department Care Team (Late st Contact Info) Description 09/09/2013 11:36 PM EDT - 09/10/2013 12:57 AM EDT Emergency [place] [id number] Wendy Blood MD [facility] [place] [address] Lumbar back sprain, initial encounter Discharge Disposition: Home Social History [...] Sign Reading Time Taken Comments Blood Pressure 142/88 09/09/2013 11:45 PM EDT Pulse 100 09/10/2013 12:56 AM EDT Temperature 37.2 ??C (99 ??F) 09/09/2013 11:45 PM EDT Respiratory Rate 18 09/10/2013 12:56 AM EDT Oxygen Saturation 98% 09/09/2013 11:45 PM EDT Inhaled Oxygen Concentration - - Weight 97.5 kg (215 lb) 09/09/2013 11:45 PM EDT Height 162.6 cm (5' 4) 09/09/2013 11:45 PM EDT Body Mass Index 36.9 09/09/2013 11:45 PM EDT documented in this encounter Discharge Instructions * Discharge Instructions* Jamila Love MD - 09/10/2013 12:46 AM EDT Images from the original note were not included. Recommend taking 800mg Ibuprofen 3 times daily as needed for pain. Flexeril 10mg 3 times daily as needed for pain, may take prior to bedtime. Vicodin every 6 hours as needed for pain. Please follow up with your PCP for further evaluation and care. Physical therapy is recommended. [facility] Back Care and Preventing Injuries: After Your Visit Your Care Instructions You can hurt your back doing many everyday activities: lifting a heavy box, bending down to garden,exercising at the gym, and even getting out of bed. But you can keep your back strong and healthy by doing some exercises. You also can follow a few tips for sitting, sleeping, and lifting to avoid hurting your back again. Talk to your doctor before you start an exercise program. Ask for help if you want to learn more about keeping your back healthy. Follow-up care is a perkins part of your treatment and safety. Be sure to make and go to all appointments, and call your doctor if you are having problems. It???s also a good idea to know your test results and keep a list of the medicines you take. How can you care for yourself at home? ?? Stay at a healthy weight to avoid strain on your lower back. ?? Do not smoke. Smoking increases the risk of osteoporosis, which weakens the spine. If you need help quitting, talk to your doctor about stop-smoking programs and medicines. These can increase yourchances of quitting for good. ?? Make sure you sleep in a position that maintains your back's normal curves and on a medium-firm mattress that feels comfortable. Sleep on your side with a pillow between your knees, or sleep on your back with a pillow under your knees. These positions can reduce strain on your back. ?? When you get out of bed, lie on your side and bend both knees. Drop your feet over the edge of the bed as you push up with both arms. Scoot to the edge of the bed. Make sure your feet are in line with your rear end (buttocks), and then stand up. ?? If you must stand for a long time, put one foot on a stool, ledge, or box. Exercise to strengthen your back and other muscles ?? Get at least 30 minutes of exercise on most days of the week. Walking is a good choice. You alsomay want to do other activities, such as running, swimming, cycling, or playing tennis or team sports. ?? Stretch your back muscles. Here are few exercises to try: ?? Lie on your back with your knees bent and your feet flat on the floor. Gently pull one bent kneeto your chest. Put that foot back on the floor, and then pull the other knee to your chest. Hold for 15 to 30 seconds. Repeat 2 to 4 times. ?? Do pelvic tilts. Lie on your back with your knees bent. Tighten your stomach muscles. Pull your belly button (navel) in and up toward your ribs. You should feel like your back is pressing to the floor and your hips and pelvis are slightly lifting off the floor. Hold for 6 seconds while breathingsmoothly. ?? Keep your core muscles strong. The muscles of your back, belly (abdomen), and buttocks support your spine. ?? Pull in your belly, and imagine pulling your navel toward your spine. Hold this for 6 seconds, then relax. Remember to keep breathing normally as you tense your muscles. ?? Do curl-ups. Always do them with your knees bent. Keep your low back on the floor, and curl yourshoulders toward your knees using a smooth, slow motion. Keep your arms folded across your chest, not behind your head. ?? Lie on your back with your knees bent and your feet flat on the floor. Tighten your belly muscles, and then push with your feet and raise your buttocks up a few inches. Hold this position 6 seconds as you continue to breathe normally, then lower yourself slowly to the floor. Repeat 8 to 12 times. ?? If you like group exercise, try Pilates or yoga. These classes have poses that strengthen the core muscles. Protect your back when you sit ?? Place a small pillow, a rolled-up towel, or a lumbar roll in the curve of your back if you need extra support. ?? Sit in a chair that is low enough to let you place both feet flat on the floor with both knees nearly level with your hips. If your chair or desk is too high, use a foot rest to raise your knees. ?? When driving, keep your knees nearly level with your hips. Sit straight, and drive with both hands on the steering wheel. Your arms should be in a slightly bent position. ?? Try a kneeling chair, which helps tilt your hips forward. This takes pressure off your lower back. ?? Try sitting on an exercise ball. It can rock from side to side, which helps keep your back loose. Lift properly ?? Squat down, bending at the hips and knees only. If you need to, put one knee to the floor and extend your other knee in front of you, bent at a right angle (half kneeling). ?? Press your chest straight forward. This helps keep your upper back straight while keeping a slight arch in your low back. ?? Hold the load as close to your body as possible, at the level of your navel. ?? Use your feet to change direction, taking small steps. ?? Lead with your hips as you change direction. Keep your shoulders in line with your hips as you move. Do not twist your body. ?? Set down your load carefully, squatting with your knees and hips only. When should you call for help? Watch closely for changes in your health, and be sure to contact your doctor if: ?? You want more exercises to make your back and other core muscles stronger. Where can you learn more? Visit our health information library at [email or web address] You can also view health information on rollApp, your personal patient account. Log in or sign up today. Enter S810 in the search box to learn more about Back Care and Preventing Injuries: After Your Visit. ?? [id number] [employer]. Care instructions adapted under license by [facility]. This care instruction is for use with your licensed healthcare professional. If you have questions about a medical condition or this instruction, always ask your healthcare professional. [employer] disclaims any warranty or liability for your use of this information. Content Version: 9.9.409539; Last Revised: July 10, 2011 documented in this encounter Medications at Time of Discharge Medication Sig Dispensed Refills Start Date End Date acetaminophen (TYLENOL) 500 mg tablet Take 1,000 mg by mouth every 6 hours as needed. ibuprofen (MOTRIN) 800 mg tablet Take 1 tablet by mouth every 6 hours as needed for Pain. 30 tablet 0 08/18/2013 09/15/2013 predniSONE (DELTASONE) 20 mg tablet Take 2 tablets by mouth daily for 5 days. 10 tablet 0 08/18/2013 09/15/2013 albuterol (PROAIR HFA) 90 mcg/actuation inhaler Inhale 2 puffs into the lungs every 4 hours as needed for Wheezing. Use with spacer 1 Inhaler 1 07/20/2013 04/08/2015 documented as of this encounter ED Notes * Netta Santillan RN - 09/10/2013 12:56 AM EDT Workmans compensation papers reviewed with pt. * Netta Santillan RN - 09/09/2013 11:51 PM EDT Pt able to ambulate without difficulty. Denies numbness or tingling. Pain 6/10 at rest, increases 10/10 with movement. Tylenol and motrin with no effect. Needs met at this time. * Wendy Blood MD - 09/09/2013 11:50 PM EDT Chief Complaint Patient presents with ??? Back Pain The history is provided by the patient. Nancy Diego is a 47 y.o. who presents to the Emergency Department, with back pain. 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 Nancy was bending over to help move the patient, when he pushed against the wall suddenly and pushed into her with a good amount of force. She instantly felt pain in her lower back. Took 800mg of Ibuprofen and then 1000mg of tylenol with minimal relief. She continued her work until 7am and then went home. Pain increased to 8/10, with radiation down her gluteus and down both legs. Pain down legs is described as burning/tingling pain. Pain in flank is 7/10 stabbing pain and pain in back is also sharp 8-9/10 and radiates up to thoracic spine. Very similar to previous back pain, more intense. Denies any muscle weakness, any loss of bowel/bladder function, any headaches, dizziness, chest pain or SOB. Denies any fever, chills or recent illnesses. Difficulty walking secondary to pain, drove herself to the ED. Has chronic back pain for which she is being treated by her PCP, last seen on 08/18/13 and given short cou rse of prednisone, percocet and prescribed Ibuprofen for pain. Allergies Allergen Reactions ??? Latex Skin cracks and bleeds ??? Penicillins Rash Review of Systems Constitutional: Negative for activity change and appetite change. HENT: Negative. Eyes: Negative. Respiratory: Negative. Cardiovascular: Negative. Gastrointestinal: Negative. Genitourinary: Negative. Musculoskeletal: Positive for myalgias, back pain and gait problem. Negative for joint swelling andarthralgias. Skin: Negative. Neurological: Positive for weakness. Negative for dizziness, tremors, seizures, syncope, facial asymmetry, speech difficulty, light-headedness, numbness and headaches. Hematological: Negative. Psychiatric/Behavioral: Negative. Physical Exam Nursing note and vitals reviewed. Constitutional: She is oriented to person, place, and time. She appears well- developed and well-nourished. She appears distressed. HENT: Head: Normocephalic and atraumatic. Right Ear: External ear normal. Left Ear: External ear normal. Nose: Nose normal. Mouth/Throat: No oropharyngeal exudate. Eyes: Conjunctivae normal and EOM are normal. Pupils are equal, round, and reactive to light. Righteye exhibits no discharge. Left eye exhibits no discharge. No scleral icterus. Neck: Normal range of motion. Neck supple. No JVD present. No tracheal deviation present. No thyromegaly present. Cardiovascular: Normal rate, regular rhythm and intact distal pulses. Exam reveals no gallop and nofriction rub. No murmur heard. Pulmonary/Chest: Effort normal and breath sounds normal. No respiratory distress. She has no wheezes. She has no rales. She exhibits no tenderness. Abdominal: Soft. Bowel sounds are normal. She exhibits no distension and no mass. There is no tenderness. There is no rebound and no guarding. Genitourinary: Rectum normal. Rectal exam shows no external hemorrhoid, no internal hemorrhoid, no fissure, no mass, no tenderness and anal tone normal. Guaiac negative stool. Musculoskeletal: She exhibits tenderness. She exhibits no edema. Lumbar back: She exhibits decreased range of motion, tenderness, bony tenderness and pain. She exhibits no swelling, no edema, no deformity, no laceration, no spasm and normal pulse. Lymphadenopathy: She has no cervical adenopathy. Neurological: She is alert and oriented to person, place, and time. She has normal reflexes. She displays normal reflexes. No cranial nerve deficit. She exhibits normal muscle tone. Coordination normal. Skin: Skin is warm and dry. No rash noted. She is not diaphoretic. No erythema. No pallor. Psychiatric: She has a normal mood and affect. Her behavior is normal. Judgment and thought contentnormal. Procedures MDM ED Course: Full history and physical exam were done. Given 30mg IV Tordol for pain. Diagnosis and plan of carewere discussed with the patient. Assessment/Plan: Nancy Diego is a 47 yo female who presented with back pain. Given history and physical exam findings, lumbar strain is the most likely etiology. She has no actual weakness. Patient treated with 30mg IV Tordol. Prescribed flexeril for muscle spasms, percocet and Ibuprofen as needed for pain. PCP appointment for follow up on 09/15/13. Jamila Love MD Resident 09/10/13 0054 ED ATTENDING ADDENDUM: The patient was seen in conjunction with Dr. Love, the resident physician. I have independently performed the perkins portions of the history and physical exam. I have discussed the details of the case with the resident and agree with the assessment and plan as described in the resident note above unless noted otherwise below. 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 Pain 6/10, increases 10/10 with movement. Denies numbness or tinging. Reports pain radiates down bilateral legs. (+) CSM's. documented in this encounter Plan of Treatment Not on file documented as of this encounter Visit Diagnoses Diagnosis Lumbar back sprain, initial encounter documented in this encounter Administered Medications Inactive Administered Medications - up to 3 most recent administrations Medication Order MAR Action Action Date Dose Rate Site ketorolac (TORADOL) injection 30 mg 30 mg, Intravenous, ONCE, 1 dose, On Lupe 09/10/13 at 0100, STAT Given 09/10/2013 12:48 AM EDT 30 mg Left Arm TAKE HOME vial of 5, oxyCODONE-acetaminophen (PERCOCET) 5-325 mg tablet 1-2 tablet, Oral, EVERY 6 HOURS PRN, Starting on Lupe 09/10/13 at 0035, Until Lupe 09/10/13 at 0257, Pain, Maximum dose of acetaminophen is 4000 mg from all sources in 24 hours., STAT Given 09/10/2013 12:49 AM EDT 2 tablets documented in this encounter Active and Recently Administered Medications Times are shown in EDT. Scheduled Medication Order 09/08/2013 09/09/2013 09/10/2013 ketorolac (TORADOL) injection 30 mg (COMPLETED) 30 mg, Intravenous, ONCE, 1 dose, On Lupe 09/10/13 at 0100, STAT 0048 (Given - Provid er: Netta Santillan RN) PRN Medication Order 09/08/2013 09/09/2013 09/10/2013 TAKE HOME vial of 5, oxyCODONE-acetaminophen (PERCOCET) 5-325 mg tablet (CANCELED) 1-2 tablet, Oral, EVERY 6 HOURS PRN, Starting on Lupe 09/10/13 at 0035, Until Lupe 09/10/13 at 0257, Pain, Maximum dose of acetaminophen is 4000 mg from all sources in 24 hours., STAT 0049 (Given - Provid er: Netta Santillan RN - Comment: bottle of #5 tablets dispensed to go home.) documented in this encounter Care Teams Network Planner Relationship Specialty Start Date End Date Nubia Botello APRN [facility] [address] [place] [address] PCP - General 04/21/13 12/21/13 documented as of this encounter
--- OUTSIDE RECORDS SUMMARY | 2024-04-03 16:07 | XMS_ITS | Encounter Summary ---
Author Organization [facility] [place] [address] Care Team Providers Care Emission Specialist Name Role Phone Nubia Conley APRN Primary Care Provider + Reason for Referral * Physical Therapy (Routine) - Closed Specialty Diagnoses / Procedures Referred By Dennis daniels Referred To Contact Physical Therapy Diagnoses Lumbago Nubia Conley [facility] [address] [facility] [address] [facility] [place] [address] Referral ID Status Reason Start Date Expiration Date V isits Requested Visits Authorized [id number] Closed Evaluate and Treat 09/15/2013 03/14/2014 1 1 Reason for Visit * Reason Comments Follow-up previous back injury Encounter Details Date Type Department Care Team (Late st Contact Info) Description 09/15/2013 10:45 AM EDT Follow-Up Internal Medicine at [facility] [address] [place] [address] Nubia Conley [facility] [address] [facility] [place] [address] Lumbago (Primary Dx) Discharge Disposition: Home Social [...] Sign Reading Time Taken Comments Blood Pressure 119/78 09/15/2013 10:56 AM EDT Pulse 85 09/15/2013 10:56 AM EDT Temperature 36.6 ??C (97.8 ??F) 09/15/2013 10:56 AM E DT Respiratory Rate 14 09/15/2013 10:56 AM EDT Oxygen Saturation 96% 09/15/2013 10:56 AM EDT Inhaled Oxygen Concentration - - Weight 102 kg (224 lb 12.8 oz) 09/15/2013 10:56 AM EDT Height 159.8 cm (5' 2.91) 09/15/2013 10:56 AM E DT Body Mass Index 39.93 09/15/2013 10:56 AM EDT documented in this encounter Progress Notes * Nubia Conley APRN - 09/15/2013 11:23 AM EDT PCP: NUBIA CONLEY APRN Chief Complaint Patient presents with ??? Follow-up previous back injury SUBJECTIVE: Nancy Diego is a 47 y.o. female who presents with continued back pain. 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 She reports that it was getting better before that. She states that the prednisone really help the first time. She was in the ER on the for the re-injury. She has taken 2 flexeril for the back pain. She reports that she went back to work yesterday and she reports that it was difficult to walk around and stand. She reports significant pain and struggledto make it through the shift. ROS: GEN: Denies fevers, chills, lightheadedness or dizziness CARDIO: Denies palpitations, or chest discomfort RESP: Denies shortness of breath, LAYNE, cough Allergies Allergen Reactions ??? Latex Skin cracks and bleeds ??? Penicillins Rash Current Outpatient Prescriptions Medication Sig Dispense Refill ??? cyclobenzaprine (FLEXERIL) 10 mg tablet Take 1 tablet by mouth 3 times daily as needed for Muscle spasms. No driving, no alcohol 20 tablet 0 ??? acetaminophen (TYLENOL) 500 mg tablet Take 1,000 mg by mouth every 6 hours as needed. ??? ibuprofen (MOTRIN) 800 mg tablet Take 1 [...] 39.0-39.9 in adult V85.39 OBJECTIVE: Filed Vitals: 09/15/13 1056 BP: 119/78 Pulse: 85 Temp: 36.6 ??C (97.8 ??F) TempSrc: Oral Resp: 14 Height: 159.8 cm (5' 2.91) Weight: 101.969 kg (224 lb 12.8 oz) SpO2: 96% PHYSICAL EXAM: GENERAL APPEARANCE: alert, oriented, in no acute distress HEENT: TMs normal, without erythema. No sinus tenderness. Nasal mucosa pink & moist. Pharynx without erythema, exudate, or enlarged tonsils. NECK: supple, no lymphadenopathy. CARDIO: RRR, no murmurs. LUNGS: CTA, no rales, rhoncii, or wheezes. ABD: soft, non-tender, non-distended, no masses or organomegaly. Back is straight with in mid and lower back. Worse along lumbar spine, spasms of paraspinal musclesnoted. Pain with rotation, lateral bending, forward flexion to 45 degrees and limited by pain. Painworse on left side with lateral left bending. Pain bilateral sciatic notch to palpation. Straight leg raise negative; DTR's 2+/4+, symmetrical lower extremities. Antalgic gait. ASSESSMENT & PLAN: Nancy was seen today for follow-up . Diagnoses and associated orders for this visit: Lumbago - Referral to Physical Therapy - MOTRIN 800 mg tablet; Take 1 tablet by mouth every 6 hours as needed for Pain. - predniSONE (DELTASONE) 20 mg tablet; Take 2 tablets by mouth daily for 5 days. - oxyCODONE-acetaminophen (PERCOCET) 5-325 mg per tablet; Take 0.5-1 tablets by mouth every 8 hoursas needed for Pain. documented in this encounter Plan of Treatment Scheduled Referrals Name Type Priority Associated Diagnoses Orde r Schedule Referral to Physical Therapy Outpatient Referral Routine Lumbago Ordered: 09/15/2013 documented as of this encounter Visit Diagnoses Diagnosis Lumbago- Primary documented in this encounter Care Teams Emission Specialist Relationship Specialty Start Date End Date Nubia Conley APRN [facility] [address] [facility] [address] PCP - General 04/21/13 12/21/13 documented as of this encounter
--- OUTSIDE RECORDS SUMMARY | 2024-04-03 16:07 | XMS_ITS | Encounter Summary ---
Author Organization [facility] [place] [address] Care Team Providers Care Talent Assistant Name Role Phone Nubia Botello APRN Primary Care Provider + Encounter Details Date Type Department Care Team (Late st Contact Info) Description 03/27/2000 Orders Only Radiology and Cardiology Results [address] [place] [address] Apd Conversion, Results Provider, Social History [...] Procedure Name Priority Date/Time Associated Diagnosis Comments TYPE AND SCREEN ([facility]) Routine 03/27/2000 10:27 AM EDT documented in this encounter Results * (ABNORMAL) Type and screen ([facility]) (03/27/2000 10:27 AM EDT) ABO Grouping O(Externa l Lab) ABO SARAH AMEZQUITA DAY CONVERSION Rh POSITIVE( External Lab) SARAH AMEZQUITA DAY CONVERSION AB Screen Interp NEGATIVE( External Lab) NEGATIVE SARHA AMEZQUITA DAY CONVERSION Armband Identification [id number](E xternal Lab) SARAH AMEZQUITA DAY CONVERSION 03/27/2000 10:2 7 AM EDT Results Provider Apd Conversion MD BLOOD BANK LAB ORDERABLES SARAH AMEZQUITA DAY CONVERSION documented in this encounter Visit Diagnoses Not on filedocumented in this encounter Care Teams Talent Assistant Relationship Specialty Start Date End Date Nubia Botello, SUPERVISOR NURSE [facility] [address] [address] [place] [address] PCP - General 01/16/14 01/28/19 documented as of this encounter
--- OUTSIDE RECORDS SUMMARY | 2024-04-03 16:07 | XMS_ITS | Encounter Summary ---
Author Organization [facility] [place] [address] Care Team Providers Care Incendiary Powder Mixer Name Role Phone Nubia Botello GARY Primary Care Provider + Reason for Visit * Reason Onset Date Comments Other 08/13/2014 Encounter Details Date Type Department Care Team (Late st Contact Info) Description 08/13/2014 Telephone Internal Medicine at [address] [address] Milka Ayala Other Social History Tobacco Use Types Packs/Day [...] encounter Miscellaneous Notes * Telephone Encounter - Milka Ayala - 08/13/2014 8:20 AM EST Pt calls and states she forgot her script for vicodin after her visit yesterday vijay Ramirez, she would like it mailed to [facility] in [facility] thank you documented in this encounter Plan of Treatment Not on file documented as of this encounter Visit Diagnoses Not on filedocumented in this encounter Care Teams Incendiary Powder Mixer Relationship Specialty Start Date End Date Nubia Botello APRN [facility] [address] [place] [address] PCP - General 01/16/14 01/28/19 documented as of this encounter
--- OUTSIDE RECORDS SUMMARY | 2024-04-03 16:07 | XMS_ITS | Encounter Summary ---
Author Organization [facility] Address [facility] [place] [address] Care Team Providers Care Direct Support Professional Name Role Phone Nubia Botello APRN Primary Care Provider + Encounter Details Date Type Department Care Team (Latest Contact Info) Description 08/11/2013 12:07 PM EST - 08/11/2013 11:59 PM EST [place] [id number] Linda Borges MD [facility] [place] [address] Prediabetes; Fatigue; Myalgia Discharge Disposition: Home Social [...] Sig Dispensed Refills Start Date End Date traMADol (ULTRAM) 50 mg tablet Take 1 tablet by mouth every 6 hours as needed for Pain. 30 tablet 0 08/03/2013 08/18/2013 hydroCODone-Acetaminoph en (VICODIN) 5-300 mg Tab Take 1 tablet by mouth nightly as needed. 10 tablet 0 08/03/2013 08/18/2013 albuterol (PROAIR HFA) 90 mcg/actuation inhaler Inhale 2 puffs into the lungs every 4 hours as needed for Wheezing. Use with spacer 1 Inhaler 1 07/20/2013 04/08/2015 documented as of this encounter Plan of Treatment Not on file documented as of this encounter Procedures Procedure Name Priority Date/Time Associated Diagnosis Comments SCAN, PERIPHERAL BLOOD Routine 4 12:15 PM EST DIFFERENTIAL, AUTOMATED Routine 08/11/2013 12:15 PM EST SEDIMENTATION RATE Routine 08/11/2013 12 :15 PM EST Fatigue Myalgia CBC (WITH DIFF) Routine 08/11/2013 12:15 PM EST Prediabetes RHEUMATOID FACTOR, QUANT Routine 08/11/2013 12:15 PM EST Fatigue Myalgia MARCE ANTIBODY SCREEN Routine 08/11/2013 1 2:15 PM EST Fatigue Myalgia COMPREHENSIVE METABOLIC PANEL Routine 08/11/2013 12:15 PM EST Prediabetes documented in this encounter Results * (ABNORMAL) Differential, Automated (08/11/2013 12:15 PM EST) Neutrophil % 48.2 34.0 - 71.0 % CERNER MILLENNIUM Neutrophil Absolute 5.55 1.50 - 6.30 x10(3)/mc L CERNER MILLENNIUM Lymph % 41.0 19.0 - 53.0 % CERNER MILLENNIUM Lymphocytes Abs 4.7(H) 1.0 - 3.6 x10(3)/mc L CERNER MILLENNIUM Monocyte % 7.8 4.0 - 13.0 % CERNER MILLENNIUM Monocyte Abs 0.9 0.2 - 1.0 x10(3)/mc L CERNER MILLENNIUM Eos % 1.4 0.0 - 7.0 % CERNER MILLENNIUM Eosinophils Abs 0.2 0.0 - 0.5 x10(3)/mc L CERNER MILLENNIUM Basophil % 0.3 0.0 - 2.0 % CERNER MILLENNIUM Baso Absolute 0.0 0.0 - 0.2 x10(3)/mc L CERNER MILLENNIUM Immature Gran % 1.30(H) 0.00 - 0.66 % CERNER MILLENNIUM Comment: Immature granulocytes(IG's)percentage and absolute count will include metamyelocytes, myelocytes, and promyelocytes. Blood smears from CBCs yielding IG's will be scanned manually for concordance. If this scan disagrees with the automated IG or if promyelocytes are noted, a manual differential will be performed. Immature Gran Absolute 0.15(H) 0.00 - 0.05 x10(3)/mc L CERNER MILLENNIUM Blood specimen (specimen) 08/11/2013 12:15 PM EST 08/11/2013 12:25 PM EST Linda Borges MD HEMATOLOGY ORDERABL ES Performing Organization Address [facility] Co de Phone Number [facility] * Scan, Peripheral Blood (08/11/2013 12:15 PM EST) Plat estimate Normal [facility] RBC Morphology Normal CERNE R MILLENNIUM Blood specimen (specimen) 08/11/2013 12:15 PM EST 08/11/2013 12:25 PM EST Narrative Resulting Agency Comment Spec In Lab Linda Borges MD HEMATOLOGY ORDERABL ES Performing Organization Address [facility] de Phone Number [facility] * (ABNORMAL) Sedimentation rate (08/11/2013 12:15 PM EST) Sedimentation Rate Automated 26(H) 0 - 20 mm/hr [facility] Blood specimen (specimen) 08/11/2013 12:15 PM EST 08/11/2013 12:25 PM EST Narrative Resulting Agency Comment Spec In Lab Linda Borges MD HEMATOLOGY ORDERABL ES Performing Organization Address [facility] Co de Phone Number [facility] * Rheumatoid factor, quant (08/11/2013 12:15 PM EST) Rheumatoid Factor <10 <=14 IU/mL [facility] Blood specimen (specimen) 08/11/2013 12:15 PM EST 08/11/2013 12:25 PM EST Narrative Resulting Agency Comment Spec In Lab Linda Borges MD CHEMISTRY ORDERABLE S Performing Organization Address City/[facility]/ZIP Co de Phone Number CERNER MILLENNIUM * MARCE (08/11/2013 12:15 PM EST) MARCE Neg Neg CERNER MILLENNIUM Blood specimen (specimen) 08/11/2013 12:15 PM EST 08/11/2013 2:42 PM EST Narrative Resulting Agency Comment Spec In Lab Linda Borges MD LAB SEND OUT ORDERA KRYSTAL Performing Organization Address City/[facility]/ZIP Co de Phone Number CERNER MILLENNIUM * (ABNORMAL) Comprehensive metabolic panel (non-fasting) (08/11/2013 12:15 PM EST) Glucose 119 60 - 199 mg/dL CERNER MILLENNIUM Comment:Diabetes: >=200 mg/d L plus symptoms Blood Urea Nitrogen 17 8 - 18 mg/dL CERNER MILLENNIUM Creatinine 1.00 0.70 - 1.20 mg/dL CERNER MILLENNIUM Comment: Please note that the pediatric reference intervals supplied above were not validated at [facility]. Results from pediatric patients should be interpreted [...] Platelet Volume 9.5 9.0 - 12.0 fL CHARL[facility]IKER OLSONENNIUM Blood specimen (specimen) 08/11/2013 12:15 PM EST 08/11/2013 12:25 PM EST Narrative Resulting Agency Comment Spec In Lab Linda Borges MD HEMATOLOGY ORDERABL ES JULIANNA CHILDS documented in this encounter Visit Diagnoses Diagnosis Prediabetes Other abnormal glucose Fatigue Other malaise and fatigue Myalgia Mylagia and myositis, unspecified documented in this encounter Care Teams Direct Support Professional Relationship Specialty Start Date End Date Nubia Botello, ADOBE BALL MIXER [facility] [address] [place] [address] PCP - General 04/21/13 12/21/13 documented as of this encounter
--- OUTSIDE RECORDS SUMMARY | 2024-04-03 16:07 | XMS_ITS | Encounter Summary ---
Author Organization [facility] [place] [address] Care Team Providers Care Solar Energy System Installer Helper Name Role Phone RosmeryNubia ferreira APRN Primary Care Provider + Reason for Visit * Reason Onset Date Comments Other 10/28/2014 Encounter Details Date Type Department Care Team (Late st Contact Info) Description 10/28/2014 Telephone Internal Medicine at [address] [address] Pily Marie Other Social History Tobacco Use Types Packs/Day [...] Telephone Encounter - Consuelo Delaney RN - 10/28/2014 9:46 AM EDT Patient needs to make an appt with Nubia to complete the forms, but declined appt today. [place] to call patient to schedule. * Telephone Encounter - Pily Marie - 10/28/2014 8:58 AM EDT Message: pt has adoption application forms that she would like to have filled out [employer] by Nubia Botello. Caller (if other than patient-full name): self Relationship (if other than patient): Best time to call back: any Ok to leave a message: [ y ] Ok to send my- message [y] Attempted to contact Nurse [ n ] documented in this encounter Plan of Treatment Not on file documented as of this encounter Visit Diagnoses Not on filedocumented in this encounter Care Teams Solar Energy System Installer Helper Relationship Specialty Start Date End Date Nubia Botello, GARY [facility] [address] [address] PCP - General 01/16/14 01/28/19 documented as of this encounter
--- OUTSIDE RECORDS SUMMARY | 2024-04-03 16:07 | XMS_ITS | Encounter Summary ---
Author Organization [facility] [place] [address] Care Team Providers Care Lead Cargo Mover Name Role Phone Nubia Botello APRN Primary Care Provider + Encounter Details Date Type Department Care Team (Late st Contact Info) Description 09/22/2013 10:30 AM EDT Office Visit Physical Therapy at [facility] [address] [place] [address] Jm Huffman, PT Nubia Botello APRN [facility] [place] [address] Linda Borges MD [facility] OCCUPATIONAL [place] [address] Low back pain (Primary Dx) Discharge Disposition: Home Social History [...] as of this encounter Progress Notes * Jm Huffman, PT - 09/22/2013 10:37 AM EDT PHYSICAL THERAPY INITIAL EXAMINATION Date of Exam/First Treatment: 09/22/2013 Date of onset: 09/09/2013 Referring Provider: Nubia Botello Diagnosis: 1. Low back pain CURRENT HISTORY: Nancy Diego is a 47 y.o. female referred to physical therapy for treatment of back pain. She initially injured her back lifting a resident at [facility] on 07/03/2013. She went to the ED.She returned to work full-duty several days later. She later re-injured her back lifting the same resident on 09/09/2013 and again went to the ED. She received prednisone after each of her ED visit. It worked well after her first injury in June. However, her back pain has persisted. She has been out of work since the . Her back has improved since then, but is still painful. She has constant pain in her lower back. She adds that she has more pain pointing to the SI region. She reports another back injury greater than 20 years ago. 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 Activities: housework, lives with grandchildren Prior level of Function: denies any regular aches and pains with her daily activities besides migraines Functional Limitations: pain with maintained sitting, standing, walking, bending CLINICAL FINDINGS: Posture: neutral lumbar lordosis; bmi > 30 Gait: increased lateral sway; increased toe-out; no change in sx walking on toes, or with increasedtoe-in Range of motion: Range of motion (%) lumbar flexion 60 * extension 40* SB right 50* SB left 40* rotation right 50* rotation left 40* * = limited by pain Strength ( /5) Hip flexion (L2) Knee Ext (L3) Knee Flexion (S2) Ankle DF (L4) Hallux Ext (L5) Ankle Ev. (S1) Ankle PF (S1) Right 3+ * 4 5 5 5 Left 3+ * 4 5 5 5 Flexibility: decreased lumbar paraspinals, hamstrings, and hip flexors Joint mobility: Hypermobile L4-S Palpation: significant pain on L5 and L SI; moderate tightness in L lumbar paraspinals Neurological: Dermatomes: hypoesthesia L S1 Myotomes: LE intact Neural tension: (-) slump Reflexes: NT Oswestry: not completed fully; will assess next visit CLINICAL EVALUATION AND DIAGNOSIS: These findings are consistent with low back pain associated with a muscle and ligament strain. She has mild signs of L radiculopathy. She has decreased sx with neutral lumbar spine and will benefit from improving her lumbar-pelvic stability. Expect with skilled physical therapy interventions patient will be able to return to prior level offunction. GOALS: Therapy Short Term Goals (2 wk) 1. Patient to be indep with home exercise program. 2. Pt will demonstrate compliance with postural ed Therapy Half-Way Goals ( 8 wk) 1. Patient to score > 10 point improvement in the ARRON to demonstrate improved function 2. Pt will report 0-2/10 pain with all ADLs 3. Pt will return to work full-duty 4. Pt will demonstrate good technique with lifting to decrease strain on back INITIAL TREATMENT INCLUDED: Examination and instruction in a home exercise program, patient education regarding physical therapy plan of care, anatomy and diagnosis. - clamshells, (on HEP) - supine pelvic tilt, isometric (on HEP) - postural ed - HEP handout PLAN: Frequency and duration: 1-2 x per week for 8 weeks Treatment plan: Manual Techniques, Soft tissue mobilization, Stretching, Therapeutic exercise, Patient/Family education and Body Mechanics Total Treatment time: 40 min Total Timed Coded Treatment: 10 min The plan has been discussed with the patient and Nancy Diego has agreed with the planned treatment. JM HUFFMAN, PT, DPT documented in this encounter Plan of Treatment Not on file documented as of this encounter Visit Diagnoses Diagnosis Low back pain- Primary Lumbago documented in this encounter Care Teams Lead Cargo Mover Relationship Specialty Start Date End Date Nubia Botello, GARY [facility] [address] [address] PCP - General 04/21/13 12/21/13 documented as of this encounter
--- OUTSIDE RECORDS SUMMARY | 2024-04-03 16:07 | XMS_ITS | Encounter Summary ---
Author Organization [facility] [place] [address] Care Team Providers Care Pig Sticker Name Role Phone Nubia Botello GARY Primary Care Provider + Reason for Visit * Reason Comments Low Back Pain Encounter Details Date Type Department Care Team (Late st Contact Info) Description 09/24/2014 8:00 AM EDT Office Visit [place] [address] Lore Devi, PT [facility] RosmeryNubia joshi, [facility] [place] [address] Midline low back pain without sciatica Discharge [...] Progress Notes * Lore Devi, PT - 09/24/2014 8:39 AM EDT [facility] Center Physical Therapy Note Referring provider: Eufemia Jose APRN Diagnosis: 1. Low back pain 2. 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 Diego reports overall her pain is improving and the buttock pain is present less frequently. Ms. Diego currently complains of low back pain with intermittent radiation to bilateral buttocks, right greater than left. She denies lower extremity numbness, tingling, weakness. The pain is rated 2/10 at its least and 5/10 at its worst. Symptoms were somewhat bending, sitting, standing, walking, turning, and heavy lifting. Symptoms ease for no particular reason. The pain is usually at its worse in the morning and then improves, but worsens once again by evening. Sleep continues to bedisturbed due to the pain but less so compared to the past. Objective: Ms. Diego returns today for a scheduled follow up appointment. She moves about in the exam room without difficulty and appears comfortable while seated. Sitting posture is poor and standing is good. Active range of motion of the lumbar spine is limited to 90?? flexion and 5?? extension. End range flexion and and extension worsens the pain. Gait is unremarkable. She is able to heel/toe walk and squat fully. Abdominal and trunk extensor strength is 3/5. Slouched sitting worsens the pain while sitting fully erect lessens it. He didn't movement testing of the lumbar spine did seem to suggest a directional preference toward flexion today. Treatment Received: Discussed the natural history of low back pain in the context of underlying facet joint arthropathy and the rational for exercise based treatment. Patient Education/ Home Exercise Program: Reviewed and modified Ms. Diego 's home exercise program.The home exercise program now includes flexion in lying, trunk rotation in supine, bridging, intermediate alternate arm and leg lift on all fours and child's pose in the morning and once again in theevening. She was strongly encouraged to begin a structured cardiovascular exercise program such as walking or cycling. Reviewed flexion base self-care strategies such as flexion in lying, flexion in sitting, flexion in standing, using trekking poles when hiking, perching, leaning against a wall, placing the right foot on a step as needed throughout the day to relieve the pain. Assessment: Ms. Diego's pain is decreasing and her range of motion and strength is increasing. She is now ready to progress the home exercise program. Goals: 1. Independent with home exercise program 2. Able to sit without discomfort 3. Able to walk without discomfort 4. Return to work without restrictions Plan: Follow up in 2 weeks to reassess and progress the home exercise program. Ms. Diego was encouraged to call with any questions or concerns regarding todays visit or the home exercise program. Length of visit: A total of 25 minutes was spent re-assessing, treating, and instructing Nancy Diego in a home exercise program. documented in this encounter Plan of Treatment Not on file documented as of this encounter Visit Diagnoses Diagnosis Midline low back pain without sciatica documented in this encounter Care Teams Pig Sticker Relationship Specialty Start Date End Date Nubia Botello, GARY [facility] [address] [place] [address] PCP - General 01/16/14 01/28/19 documented as of this encounter
--- OUTSIDE RECORDS SUMMARY | 2024-04-03 16:07 | XMS_ITS | Encounter Summary ---
Author Organization [facility] [place] [address] Care Team Providers Care Wearing Apparel Shaker Name Role Phone Rosmery Nubia Lopez APRN Primary Care Provider + Encounter Details Date Type Department Care Team (Late st Contact Info) Description 08/27/2014 Orders Only Internal Medicine at [address] [address] Nubia Botello APRN [facility] [place] [address] Social History Tobacco Use Types Packs/Day Years [...] on filedocumented in this encounter Care Teams Wearing Apparel Shaker Relationship Specialty Start Date End Date Nubia Botello APRN [facility] [place] [address] PCP - General 01/16/14 01/28/19 documented as of this encounter
--- OUTSIDE RECORDS SUMMARY | 2024-04-03 16:07 | XMS_ITS | Encounter Summary ---
Author Organization Formerly [facility] [address] Care Team Providers Care Advanced Nursing Professor Name Role Phone Nubia Conley APRN Primary Care Provider + Reason for Referral * Surgical (Routine) - Closed Specialty Diagnoses / Procedures Referred By Dennis daniels Referred To Contact Orthopaedic Surgery / Orthopaedics Diagnoses Acute low back pain Nubia Conley [facility] [address] [place] [address] [facility] [address] [place] [phone] Referral ID Status Reason Start Date Expiration Date V isits Requested Visits Authorized [id number] Closed Consult, Test & Treat 08/12/2014 08/12/2015 1 1 Reason for Visit * Reason Comments Back Pain recheck, was in ER M onday morning, lower back pain Encounter Details Date Type Department Care Team (Late st Contact Info) Description 08/12/2014 4:05 PM EST Follow-Up Internal Medicine at [address] [phone] Nubia Conley [facility] [address] [place] [address] Acute low back pain (Primary Dx) Discharge Disposition: Home [...] Sign Reading Time Taken Comments Blood Pressure 153/99 08/12/2014 3:00 PM EST Pulse 94 08/12/2014 3:00 PM EST Temperature 36.7 ??C (98 ??F) 08/12/2014 3:00 PM EST Respiratory Rate - - Oxygen Saturation 96% 08/12/2014 3:00 PM EST Inhaled Oxygen Concentration - - Weight 103 kg (227 lb) 08/12/2014 3:00 PM EST Height 162.6 cm (5' 4) 08/12/2014 3:00 PM EST p t reported Body Mass Index 38.96 08/12/2014 3:00 PM EST documented in this encounter Progress Notes * Nubia Conley APRN - 08/12/2014 2:54 PM EST PCP: NUBIA CONLEY APRN Chief Complaint Patient presents with ??? Back Pain recheck, was in ER Saturday morning, lower back pain SUBJECTIVE: Nancy Diego is a 48 y.o. female who presents for Low back pain that started on 08/06/14. She reports that she was moving a resident. The patient was pushing against her. She reports that she felt a snap/click in her mid back. She had instaneous shooting pain into her low back and down into her legs. She reports that there is a constant pain in her hips, and her groin area. It radiates around the side of her legs and into her groin area. - pain radiates in front/sides of her knees. - she reports muscle spasms in her back and calf. - she reports that her legs feel weak bilaterally. She reports increased weakness of her left side. - She denies any significant relief with prednisone, valium and vicodin. She is taking one vicodin every 6 hours. - no change of bowel or bladder function Review of Systems Constitutional: Negative for fever and chills. Respiratory: Negative for cough and shortness of breath. Musculoskeletal: Positive for back pain and gait problem. Negative for neck pain and neck stiffness. Neurological: Positive for weakness (left worse than right). Negative for dizziness, light-headedness and numbness. Allergies Allergen Reactions ??? Latex Skin cracks and bleeds ??? Penicillins Rash Current Outpatient Prescriptions Medication Sig Dispense Refill ??? cyclobenzaprine (FLEXERIL) 10 mg Tablet Take 1 tablet by mouth 3 times daily as needed for Muscle spasms. No driving, no alcohol 20 tablet 0 ??? diaZEPam (VALIUM) 5 mg Tablet Take 1 tablet by mouth nightly as needed for Anxiety (spasm) for up to 6 days. 6 tablet 0 ??? HYDROcodone-acetaminophen 5-325 mg Tablet Take 1 tablet by mouth every 6 hours as needed for Pain. 30 tablet 0 ??? predniSONE (DELTASONE) 20 mg Tablet Take 3 tablets by mouth daily for 4 days. 12 tablet 0 ??? ibuprofen (ADVIL;MOTRIN) 600 mg tablet Take 600 mg by mouth every 6 hours as needed. ??? acetaminophen (TYLENOL) 500 mg tablet Take [...] Low back pain 724.2 OBJECTIVE: Filed Vitals: 08/12/14 1500 BP: 153/99 Pulse: 94 Temp: 36.7 ??C (98 ??F) TempSrc: Oral Height: 162.6 cm (5' 4) Weight: 102.967 kg (227 lb) SpO2: 96% PHYSICAL EXAM: Physical Exam Constitutional: She is oriented to person, place, and time. She appears well- developed and well-nourished. HENT: Head: Normocephalic and atraumatic. Eyes: Conjunctivae are normal. No scleral icterus. Pulmonary/Chest: Effort normal and breath sounds normal. Musculoskeletal: Lumbar back: She exhibits tenderness and pain. She exhibits no deformity. Back: Forward flexion to 45 degrees. Unable to back extend. Pain with rotation and lateral flexion. Antalgic gait. Full strength bilaterally. DTRs intact Neurological: She is alert and oriented to person, place, and time. She has normal strength and normal reflexes. No sensory deficit. Skin: Skin is warm and dry. Psychiatric: She has a normal mood and affect. Her behavior is normal. Judgment and thought contentnormal. ASSESSMENT & PLAN: Nancy was seen today for back pain. Diagnoses and associated orders for this visit: Acute low back pain - MRI lumbar spine without contrast; Future - patient reports weakness, but no loss strength. Will get MRI as she has had recurrent injuries. Will refer to spinal center for further evaluation. I have encouraged Physical therapy in past and she has been resistant - Referral to Spine Center - cyclobenzaprine (FLEXERIL) 10 mg Tablet; Take 1 tablet by mouth 3 times daily as needed for Muscle spasms. No driving, no alcohol - predniSONE (DELTASONE) 20 mg Tablet; Take 2 tablets by mouth daily for 3 days. - ibuprofen (ADVIL;MOTRIN) 800 mg Tablet; Take 1 tablet by mouth every 8 hours as needed. - HYDROcodone-acetaminophen 5-325 mg Tablet; Take 1-2 tablets by mouth every 6 hours as needed for Pain. documented in this encounter Plan of Treatment Scheduled Referrals Name Type Priority Associated Diagnoses Orde r Schedule Referral to Spine Center Outpatient Referral Routine Acute low back pain Ordered: 08/12/2014 documented as of this encounter Results * MRI lumbar spine [...] in context of the clinical situation (Reference- Gerrik et al, [id number]). Findings: (Prevalence in patients without low back pain), discdegeneration (decreased T2 signal, height loss, bulge) (91%), disc T2-signal loss(83%), disc height loss (56%), disc bulge (64%), disc protrusion (32%), annularfissure (38%). Consuelo Dominguez MD IMG MRI ORDERABLE S documented in this encounter Visit Diagnoses Diagnosis Acute low back pain- Primary Lumbago Acute low back pain Lumbago documented in this encounter Care Teams Advanced Nursing Professor Relationship Specialty Start Date End Date Nubia Conley, [facility] [address] [place] [address] PCP - General 01/16/14 01/28/19 documented as of this encounter
[2024-04-03 16:16] LABS: Folate 8.5 ng/mL (8.6-20.0); TSH (W/Ref FT4) 1.25 uIU/mL (0.36-3.74); Vitamin B12 181 pg/mL (193-986); Vitamin D 25 Total 33.9 ng/mL (30-100)
[2024-04-03 17:53] LABS: COMMENT (LAB VIEW ONLY) 77.86 mg/dL; Microalb ug/mg Crea 7.4 ug/mg Cr
[2024-04-03 17:59] LABS: Iron 35 ug/dL (50-170); Total Iron Binding Capacity 326 ug/dL (250-450); Transferrin Sat 11 % (15-50)
== END 2024-04-03 15:54 | disposition home or self-care (01) ==
LOC: NCHCN 15:53
PROVIDERS: Visit Provider Nurse Practitioner Family
DX: R53.83 Other fatigue (principal); E55.9 Vitamin D deficiency, unspecified; R25.2 Cramp and spasm; E11.9 Type 2 diabetes mellitus without complications
CPT/HCPCS: 82306; 82043; 82570; 82607; 82746; 83540; 83550; 83735; 84443; 85025

== ENCOUNTER 2024-05-11 00:51 | Outpatient (CLI) | payer MEDICAID, SELFPAY ==
--- NOTE | 2024-05-11 | ETT_ITS ---
APPROVED REPORT Exam: Exercise Treadmill Patient Location: Out-Patient Room/Bed: Stress Nurse: Shereen Knight RN Ordering Provider:AUGIE GRIFFITH, Contact Number: [phone] BMI: 35.07 Baseline Rhythm: Sinus Rhythm Comment: Rare PVC's Indications: Chest pain, some SOB, recent dizziness, Medical History Medical History: Fibromyalgia, dyspnea, interstitial lung disease, HLD, DMT2, retinopathy, smoker, HT N, asthma, iron deficiency anemia Cardiac Medications: Aspirin, atorvastatin, farxiga, gabapentin, ipratropium-albuterol, lisinopril, m etformin, montelukast, advair, duloxetine, spiriva, omeprazole Allergies: Latex, penicillins Cardiac Risk Factors: HTN, HLD, diabetes, asthma, COPD, smoker Previous Cardiac Procedures: None Pretest Chest Pain Characteristics: None Exercise History: Indeterminate Physical Disabilities: None Lung Sounds: Clear to auscultation Heart Sounds: Regular Stress Test Details Test: Exercise stress testing was performed using a Robert protocol. Rest Stress HR Resting HR Supine: 83 bpm Max Heart Rate (APMHR): 164 bpm Resting HR Standin bpm Target HR (85% APMHR): 139 bpm Max HR Achieved: 113 bpm % of APMHR: 69 Recovery HR: 88 bpm HR response to stress: Normal HR response to stress BP Resting BP Supine: 124/64 mmHg Resting BP Standin/64 mmHg Max BP: 134/60 mmHg Recovery BP: 118/68 mmHg BP response to stress: Normal blood pressure response to stress. ECG Resting ECG: Sinus Rhythm Ectopy: Rare PVC's Stress ECG: Sinus Tachycardia ST Change: Nondiagnostic low heart rate Arrhythmia: Rare PVC's Recovery ECG: Sinus Rhythm Recovery ST Change: Nondiagnostic low heart rate Recovery Arrhythmia: Rare PVC's Clinical Reason for Termination: Dyspnea Stress Symptoms: Severe SOB Exercise duration: 01 min32 sec Highest Stage Reached: Stage 1: 1.7 mph at 10% grade. Exercise capacity: 3.57 METs Angina Score: None Bonilla Treadmill Score: 1.8 Rate Pressure Product: 86607 Stress ECG Conclusion 1. Resting electrocardiogram showed low voltage 2. Patient exercised on the Robert protocol for only 1 minute and 32 seconds, very poor exercise capac ity, limited by shortness of breath 3. Peak heart rate achieved was 69% of maximal predicted heart rate for age 4. The electrocardiographic portion of the test was nondiagnostic 5. Occasional PVCs were noted Bonilla Treadmill Score is 1.8 which is Moderate risk. Stress Test Summary STAGE Time (mins) Speed (mph) Grade (%) HR BP SpO2 SYMPTOMS METS Supine 83 124/64 93% Standing 82 108/64 1 3 1.7 10 111 84% Mod-Severe SOB 4.5 1 min recovery 111 127/50 86% Mod SOB 3 min recovery 95 134/60 94% Mild SOB 6 min recovery 88 118/68 95% SOB resolved.
== END 2024-05-11 01:11 ==
PROVIDERS: PCP Nurse Practitioner Family; Visit Provider Nurse Practitioner Family
DX: I49.3 Ventricular premature depolarization
CPT/HCPCS: 93017

== ENCOUNTER 2024-05-18 01:23 | Outpatient (CLI) | payer MEDICAID, SELFPAY ==
--- NOTE | 2024-05-18 | DI.MRI_ITS ---
Exam(s) MR BRAIN WO EXAM: MR BRAIN WO CLINICAL HISTORY: MEMORY LAPSES, R41.3, OTHER AMNESIA, RECENT SEVERE HEADACHE, VERTIGO TECHNIQUE: Multiplanar multisequence MRI of the brain was performed. COMPARISON: CT CT HEAD WO from 05/31/2022 FINDINGS: VENTRICLES AND EXTRA AXIAL SPACES: Normal in size and morphology for the patient's age. MIDLINE SHIFT: None. CEREBRAL PARENCHYMA: No focus of restricted diffusion to suggest acute infarct. No space-occupying le hazel identified. There are areas of hyperintense signal seen in the white matter on the FLAIR and T2 weighted images. HEMORRHAGE: None. BRAINSTEM/CEREBELLUM: Normal. CALVARIUM: Normal. VISUALIZED PARANASAL SINUSES/MASTOIDS:Clear. OMAHA OF TERRY: Normal flow void. PITUITARY GLAND: Unremarkable. OTHER FINDINGS: None. IMPRESSION: 1. No evidence of an intracranial mass or acute infarct. 2. No acute intracranial process. 3. Areas of hyperintense signal seen in the white matter on the FLAIR and T2 weighted images. This i s nonspecific but can be seen with small vessel ischemic disease. DATA REPOSITORY:
== END 2024-05-18 01:43 ==
LOC: DI 01:23
PROVIDERS: PCP Nurse Practitioner Family; Visit Provider Nurse Practitioner Family
DX: R41.3 Other amnesia (principal)
CPT/HCPCS: 70551

== ENCOUNTER 2024-09-09 14:03 | Outpatient (REF) | payer MEDICAID, SELFPAY ==
[2024-09-09 21:16] LABS: Absolute Lymphocyte Count 4.19 10^3/uL (1.2-3.4); Absolute Monocyte Count 0.65 10^3/uL (0.1-0.8); Basophils % 0.8 %; Eosinophils % 1.6 %; HCT 42.2 % (36.0-46.0); HGB 13.7 g/dL (11.2-15.7); Immature Grans % 0.8 %; MCH 29.2 pg (27.0-33.0); MCHC 32.5 % (32.0-36.0); MCV 90 fL (80-95); MPV 9.4 fL (8.0-11.0); Monocytes % 5.1 %; Neutrophils % 58.7 %; Platelet Count 416 10^3/uL (130-400); RBC 4.69 10^6/uL (3.93-5.22); RDW-SD 51.9 fL
[2024-09-09 21:28] LABS: Absolute Neutrophil Count 7.45 10^3/uL (1.2-6.7)
[2024-09-09 21:55] LABS: Folate > 20.0 ng/mL (8.6-20.0)
[2024-09-09 22:09] LABS: ALT 29 U/L (14-59); AST 21 U/L (15-37); Albumin 3.8 g/dL (3.4-5.0); Alkaline Phosphatase 142 U/L (46-116); Anion Gap 11.1 mmol/L (3-11); BUN 21 mg/dL (7-18); Bilirubin, Total 0.4 mg/dL (0.2-1.0); CO2 22.9 mmol/L (21.0-32.0); CREATININE 1.7 mg/dL (0.55-1.02); Calcium 8.9 mg/dL (8.5-10.1); Chloride 104 mmol/L (98-107); Estimated GFR 34.98 (mL/min/1.73m2); Glucose 86 mg/dL (74-106); Sodium 138 mmol/L (136-145); Total Protein 7.8 g/dL (6.4-8.2); Vitamin B12 242 pg/mL (193-986); Vitamin D 25 Total 36 ng/mL (30-100)
[2024-09-09 22:36] LABS: Iron 32 ug/dL (50-170); Total Iron Binding Capacity 346 ug/dL (250-450); Transferrin Sat 9 % (15-50)
[2024-09-09 22:42] LABS: Potassium 6.5 mmol/L (3.5-5.1)
== END 2024-09-09 14:04 | disposition home or self-care (01) ==
LOC: NCHCN 14:03
PROVIDERS: PCP Nurse Practitioner Family; Visit Provider Nurse Practitioner Family
DX: E11.9 Type 2 diabetes mellitus without complications (principal); E55.9 Vitamin D deficiency, unspecified; D50.9 Iron deficiency anemia, unspecified; R79.89 Other specified abnormal findings of blood chemistry
CPT/HCPCS: 80053; 82306; 82607; 82746; 83540; 83550; 85025

== ENCOUNTER 2024-09-09 14:31 | Outpatient (CLI) | payer MEDICAID, SELFPAY ==
--- NOTE | 2024-09-09 15:07 | DI.RAD_ITS ---
Exam(s) XR SHOULDER RT COMPLETE 2+V XR HUMERUS RT EXAM: XR SHOULDER RT COMPLETE 2+V CLINICAL HISTORY: Rt shoulder pain, M25.511. TECHNIQUE: 2D digital imaging was performed. Five views of the shoulder. Two views of the humerus. COMPARISON: DX XR CHEST PA AND LATERAL (GENERIC) from 12/16/2020 CR,RF RF BARIUM SWALLOW from 12/31/2022 CR XR HUMERUS RT from 09/09/2024 FINDINGS: BONES: No acute fracture is present. No bony destructive lesion is seen. JOINTS: No dislocation present. The AC joint is unremarkable. There is some spurring at the undersu rface of the acromion. Glenohumeral joint space is maintained. SOFT TISSUE: Small calcifications adjacent to the greater tuberosity is consistent with calcific tend inosis. IMPRESSION: Calcific tendinosis. Evidence of fracture. DATA REPOSITORY: RADIATION DOSE DELIVERED:
== END 2024-09-09 14:51 ==
PROVIDERS: PCP Nurse Practitioner Family; Visit Provider Nurse Practitioner Family
DX: M25.511 Pain in right shoulder (principal); M75.31 Calcific tendinitis of right shoulder
CPT/HCPCS: 73030; 73060

== ENCOUNTER 2024-09-10 10:55 | Emergency (ER) | payer MEDICAID, SELFPAY ==
[2024-09-10] VITALS (25 sets, daily range): BP systolic 103–119; BP diastolic 44–67; PULSE 66–88; RESP 8–23; TEMP 36.5–36.7; O2SAT 87–96
--- NOTE | 2024-09-10 10:45 | RT.EKG_ITS ---
APPROVED REPORT Exam: Resting ECG Reason for Exam: hyperkalemia Patient Location: E HR:86 bpm ECG Measurements Heart Rate 86 AXIS DC 157 P 67 QRSd 88 QRS 76 QT 381 T 77 QTc 457 Conclusion Sinus rhythm...normal P axis, V-rate 60- 99 Low voltage, precordial leads...precordial leads <1.0mV
[2024-09-10 11:20] LABS: Abs Immature Grans 0.13 10^3/uL (0.0-0.06); Absolute Basophil Count 0.12 10^3/uL (0.0-0.2); Absolute Eosinophil Count 0.25 10^3/uL (0.0-0.7); Absolute Monocyte Count 0.58 10^3/uL (0.1-0.8); Basophils % 0.9 %; Eosinophils % 1.9 %; HCT 41.6 % (36.0-46.0); HGB 13.5 g/dL (11.2-15.7); Lymphocytes % 30.9 %; MCH 28.7 pg (27.0-33.0); MCHC 32.5 % (32.0-36.0); MCV 89 fL (80-95); MPV 8.7 fL (8.0-11.0); Monocytes % 4.4 %; Neutrophils % 60.9 %; Platelet Count 379 10^3/uL (130-400); RDW-SD 51.8 fL; WBC 13.16 10^3/uL (4.4-10.8)
[2024-09-10 11:21] LABS: Absolute Lymphocyte Count 4.07 10^3/uL (1.2-3.4); Absolute Neutrophil Count 8.01 10^3/uL (1.2-6.7)
[2024-09-10 11:35] LABS: ALT 29 U/L (14-59); AST 20 U/L (15-37); Albumin 3.5 g/dL (3.4-5.0); Alkaline Phosphatase 142 U/L (46-116); BUN 21 mg/dL (7-18); Bilirubin, Total 0.4 mg/dL (0.2-1.0); CREATININE 1.5 mg/dL (0.55-1.02); Calcium 9.1 mg/dL (8.5-10.1); Chloride 106 mmol/L (98-107); Estimated GFR 40.65 (mL/min/1.73m2); Glucose 155 mg/dL (74-106); Magnesium 1.9 mg/dL (1.8-2.4); Potassium 5.3 mmol/L (3.5-5.1); Sodium 137 mmol/L (136-145); Total Protein 8.2 g/dL (6.4-8.2)
--- NOTE | 2024-09-10 12:16 | ED.GENADUL_ITS ---
Discharge Plan Disposition Patient Disposition: Home Condition: Stable Discharge Details Clinical Impression: Hyperkalemia Primary Care Provider: Maddie Salinas ED Provider: Rex Gaston Home Meds and New Rx's Prescriptions: Continued benzonatate 100 mg capsule 100 mg PO TID PRN (Reason: cough) Qty: 14 0RF clindamycin HCl 300 mg capsule 300 mg PO TID Qty: 30 0RF Spiriva Respimat 1.25 mcg/actuation mist 2 puff inhalation DAILY omeprazole 40 mg capsule,delayed release(DR/EC) 40 mg PO DAILY Qty: 90 3RF cyclobenzaprine 10 mg tablet 10 tab PO HS Patient Comments: TAKE ONE TABLET BY MOUTH THREE TIMES A DAY NEEDED atorvastatin 40 mg tablet 40 tab PO DAILY Patient Comments: TAKE ONE TABLET BY MOUTH EVERY DAY gabapentin 400 mg capsule 1,200 cap PO TID Patient Comments: TAKE 3 CAPSULES BY MOUTH 3 TIMES DAILY amlodipine 5 mg tablet 1 tab PO DAILY Patient Comments: TAKE ONE TABLET BY MOUTH EVERY DAY metformin 1,000 mg tablet 1,000 tab PO BID Patient Comments: TAKE ONE TABLET BY MOUTH TWICE A DAY fluticasone propion-salmeterol [Advair Diskus] 500-50 mcg/dose blister with device 1 ea INHALATION BID Patient Comments: INHALE 1 PUFF BY MOUTH EVERY 12 HOURS albuterol sulfate [ProAir HFA] 90 mcg/actuation HFA aerosol inhaler 2 inh INHALATION PRN PRN Patient Comments: INHALE 1-2 PUFFS BY MOUTH EVERY 4 TO 6 HOURS NEEDED lisinopril 40 mg tablet 40 tab PO DAILY Patient Comments: TAKE ONE TABLET BY MOUTH EVERY DAY duloxetine 60 mg capsule,delayed release(DR/EC) 1 cap PO DAILY Patient Comments: TAKE ONE CAPSULE BY MOUTH EVERY DAY ferrous gluconate 324 mg (38 mg iron) tablet 324 mg PO DAILY Patient Comments: TAKE ONE TABLET BY MOUTH EVERY DAY cholecalciferol (vitamin D3) 50 mcg (2,000 unit) capsule 1 cap PO DAILY Patient Comments: TAKE ONE CAPSULE BY MOUTH EVERY DAY aspirin 325 mg Tablet 81 mg PO DAILY Discharge Instructions Instructions: Hyperkalemia Additional Instructions: You were seen in the emergency department for your outpatient blood draw which showed high potassium levels, this can sometimes affect your heart-but you had no worrying changes on your EKG today, we rechecked your potassium and it was just barely above normal, I did provide you with calcium gluconate which is a medicine that will slightly lower your potassium to a normal level and prevent any cardiac complications from high levels of potassium, please have your levels rechecked and discussed with your primary care provider, you may have had slightly high potassium due to mild dehydration, please stay well-hydrated and return for any palpitations, dizziness, chest pain or other emergent concerns. Referrals: Maddie Salinas [Primary Care Provider] - Discharge Data Discharge Date/Time-TO BE ENTERED AT DEPARTURE: 09/10/24 13:26 HPI General Date/Time Provider Initiated Documentation: 09/10/24 11:04 . HPI Narrative: 58 year-old female presents to ED today by POV/ambulating with a chief complaint of reported high potassium value by PCP at lab-draw yesterday with a potassium of 6.5. Quality described as no symptoms, feels fine, no radiation to palpita tions, weakness, nausea, confusion, chest pain, dizziness. Severity is described as 0/10. Palliating factors include nothing specific attempted. Provoking factors include nothing specific- patient is not on medications that may cause hyperkalemia. Patient not anticoagulated. Related Data Home Medications ?Medication ?Instructions ?Recorded ?Confirmed albuterol sulfate 90 mcg/actuation 2 inh inhalation PRN PRN 05/31/22 09/10/24 aerosol inhaler (ProAir HFA) amlodipine 5 mg tablet 1 tab PO DAILY 05/31/22 09/10/24 aspirin 325 mg tablet 81 mg PO DAILY 05/31/22 09/10/24 atorvastatin 40 mg tablet 40 tab PO DAILY 05/31/22 09/10/24 cholecalciferol (vitamin D3) 50 1 cap PO DAILY 05/31/22 09/10/24 mcg (2,000 unit) capsule cyclobenzaprine 10 mg tablet 10 tab PO HS 05/31/22 09/10/24 duloxetine 60 mg capsule,delayed 1 cap PO DAILY 05/31/22 09/10/24 release ferrous gluconate 324 mg (38 mg 324 mg PO DAILY 05/31/22 09/10/24 iron) tablet fluticasone 500 mcg-salmeterol 50 1 ea inhalation BID 05/31/22 09/10/24 mcg/dose blistr powdr for inhalation (Advair Diskus) gabapentin 400 mg capsule 1,200 cap PO TID 05/31/22 09/10/24 lisinopril 40 mg tablet 40 tab PO DAILY 05/31/22 09/10/24 metformin 1,000 mg tablet 1,000 tab PO BID 05/31/22 09/10/24 tiotropium bromide 1.25 2 puff inhalation DAILY 08/27/22 09/10/24 mcg/actuation mist for inhalation (Spiriva Respimat) omeprazole 40 mg capsule,delayed 40 mg PO DAILY #90 caps 03/04/23 09/10/24 release benzonatate 100 mg capsule 100 mg PO TID PRN cough #14 caps 07/06/24 09/10/24 clindamycin HCl 300 mg capsule 300 mg PO TID #30 caps 09/02/24 09/10/24 Previous Rx's ?Medication ?Instructions ?Recorded omeprazole 40 mg capsule,delayed 40 mg PO DAILY #90 caps 03/04/23 release benzonatate 100 mg capsule 100 mg PO TID PRN cough #14 caps 07/06/24 clindamycin HCl 300 mg capsule 300 mg PO TID #30 caps 09/02/24 Allergies Allergy/AdvReac Type Severity Reaction Status Date / Time latex Allergy Skin Rash Unverified 09/10/24 11:20 Penicillins Allergy Hives Unverified 09/10/24 11:20 General Stated Complaint: GenMedical FRANK: 3 Review of Systems All systems reviewed & are unremarkable except as noted in HPI and below Exam Narrative Exam Narrative: GENERAL APPEARANCE: Well-nourished, non-toxic, awake and alert, atraumatic, no acute distress. SKIN: Warm, pink, dry, intact, without rashes/lesions/ulcerations. HEAD: Normocephalic, atraumatic, normal hair distribution for gender/age. EYES: Normal conjunctiva, no exudates on lids/lashes. ENT: Nares patent, no circumoral cyanosis, no facial swelling NECK: Supple, trachea midline, painless cervical ROM. LUNGS/CHEST: Lungs CTA bilaterally, non-labored respirations, normal A/P diameter, symmetrical expansion, no chest wall deformity HEART (CV/PV): Regular rate and rhythm without murmur, no peripheral edema, no JVD. ABDOMEN: Soft, non-distended, no guarding. MSK: Normal ROM, no swelling/deformity to bilateral UEs or LEs, moving all extremities without weakness, no cyanosis, spine midline without tenderness, normal curvature. NEURO: Mental Status AAOx4 - alert to person, place, time, events No facial droop, no forehead involvement. Motor: No focal weakness - strength 5/5 in bilateral UEs and LEs, proximal and distal, symmetric. Sensory: sensation intact to light touch globally. Gait normal: patient ambulated without ataxia into ED room. PSYCH: euthymic, cooperative, pleasant, appropriate speech Course Vital Signs Vital signs: Vital Signs Temperature 36.5 C 09/10/24 11:00 Pulse 85 09/10/24 11:00 Respiratory Rate 20 09/10/24 11:00 Blood Pressure 112/67 09/10/24 11:00 Pulse Oximetry 96 09/10/24 11:00 Temperature 36.7 C 09/10/24 11:15 Temperature Source Oral 09/10/24 11:00 Pulse 81 09/10/24 11:50 Pulse 80 09/10/24 11:50 Respiratory Rate 13 09/10/24 11:50 Respiratory Effort Normal, Non-Labored 09/10/24 11:17 Respiratory Depth Normal 09/10/24 11:17 Respiratory Pattern Normal 09/10/24 11:17 Blood Pressure 109/44 L 09/10/24 11:46 Blood Pressure Mean 66 09/10/24 11:46 Blood Pressure Position Sitting 09/10/24 11:00 Pulse Oximetry 91 L 09/10/24 11:50 Oxygen Delivery Method Room Air 09/10/24 11:15 Oxygen Flow Rate 0 09/10/24 11:00 Pain Level 6 09/10/24 11:15 Lab/Test Results Lab/Test Results: Laboratory Tests Range/Units 09/10/24 11:14 WBC (4.4-10.8) 10^3/uL 13.16 H RBC (3.93-5.22) 10^6/uL 4.70 Hgb (11.2-15.7) g/dL 13.5 Hct (36.0-46.0) % 41.6 MCV (80-95) fL 89 MCH (27.0-33.0) pg 28.7 MCHC (32.0-36.0) % 32.5 RDW (11.7-14.6) % 16.0 H Plt Count (130-400) 10^3/uL 379 MPV (8.0-11.0) fL 8.7 Immature Gran % % 1.0 Neutrophils % % 60.9 Lymphocytes % % 30.9 Monocytes % % 4.4 Eosinophils % % 1.9 Basophils % % 0.9 Nucleated RBC % (0.0-0.3) % 0.0 Absolute Neutrophils (1.2-6.7) 10^3/uL 8.01 H Absolute Lymphocytes (1.2-3.4) 10^3/uL 4.07 H Absolute Monocytes (0.1-0.8) 10^3/uL 0.58 Absolute Eosinophils (0.0-0.7) 10^3/uL 0.25 Absolute Basophils (0.0-0.2) 10^3/uL 0.12 Sodium (136-145) mmol/L 137 Potassium (3.5-5.1) mmol/L 5.3 H D Chloride (98-107) mmol/L 106 Carbon Dioxide (21.0-32.0) mmol/L 20.0 L Anion Gap (3-11) mmol/L 11.0 BUN (7-18) mg/dL 21 H Creatinine (0.55-1.02) mg/dL 1.5 H Est GFR (CKD-EPI 2020) (mL/min/1.73m2) 40.65 Glucose (74-106) mg/dL 155 H Calcium (8.5-10.1) mg/dL 9.1 Magnesium (1.8-2.4) mg/dL 1.9 Total Bilirubin (0.2-1.0) mg/dL 0.4 AST (15-37) U/L 20 ALT (14-59) U/L 29 Alkaline Phosphatase (46-116) U/L 142 H Total Protein (6.4-8.2) g/dL 8.2 Albumin (3.4-5.0) g/dL 3.5 Medical Decision Making This dictation utilizes [id number] dictation software and may contain unedited grammatical errors. 58 year-old female presents to ED today by POV/ambulating with a chief complaint of reported high potassium value by PCP at lab-draw yesterday with a potassium of 6.5. Quality described as no symptoms, feels fine, no radiation to palpitations, weakness, nausea, confusion, chest pain, dizziness. Severity is described as 0/10. Palliating factors include nothing specific attempted. Provoking factors include nothing specific- patient is not on medications that may cause hyperkalemia. Patients' medical history: T2DM, hypertension, asthma, fibromyalgia, iron deficiency anemia, CKD. Family and social history: Noncontributory. Pertinent exam findings / vital signs include benign cardiopulmonary exam, neuro intact, benign abdomen. Differential / pathologies of concern include lab error, hyperkalemia, hemoconcentration. Diagnostic studies of: -CBC, CMP, magnesium, EKG -CBC shows nonspecific mild leukocytosis -CMP shows potassium of 5.3 improved from prior value, baseline elevated creatinine -Magnesium 1.9 -EKG without peaked T waves or other signs of hyperkalemia, no widened QRS Interventions of: -Given 1 g of IV calcium gluconate, 1 L normal saline. ED Course/Assessment/Plan: 58-year-old female presents from outpatient lab draw yesterday showing hyperkalemia of 6.5, this is improved to 5.6 today with no EKG changes, I did provide 1 g of IV calcium gluconate and some IV fluids to further dilute potassium level, advised patient to follow-up with a recheck in a couple days by outpatient lab draw, patient has been asymptomatic throughout this whole thing and was trending in the right direction without intervention from yesterday to today. Findings not consistent with unstable hyperkalemia, overuse of furosemide or other hyperkalemic causing medication. Disposition of hyperkalemia. Patient verbalized understanding of the plan and return to ED criteria and engaged in shared decision making. Medical Records Medical records reviewed: Yes I reviewed the patient's medical records. Lab Data Lab results reviewed: Yes I reviewed the patient's lab results. Labs: Laboratory Tests Range/Units 09/10/24 11:14 WBC (4.4-10.8) 10^3/uL 13.16 H RBC (3.93-5.22) 10^6/uL 4.70 Hgb (11.2-15.7) g/dL 13.5 Hct (36.0-46.0) % 41.6 MCV (80-95) fL 89 MCH (27.0-33.0) pg 28.7 MCHC (32.0-36.0) % 32.5 RDW (11.7-14.6) % 16.0 H Plt Count (130-400) 10^3/uL 379 MPV (8.0-11.0) fL 8.7 Immature Gran % % 1.0 Neutrophils % % 60.9 Lymphocytes % % 30.9 Monocytes % % 4.4 Eosinophils % % 1.9 Basophils % % 0.9 Nucleated RBC % (0.0-0.3) % 0.0 Absolute Neutrophils (1.2-6.7) 10^3/uL 8.01 H Absolute Lymphocytes (1.2-3.4) 10^3/uL 4.07 H Absolute Monocytes (0.1-0.8) 10^3/uL 0.58 Absolute Eosinophils (0.0-0.7) 10^3/uL 0.25 Absolute Basophils (0.0-0.2) 10^3/uL 0.12 Sodium (136-145) mmol/L 137 Potassium (3.5-5.1) mmol/L 5.3 H D Chloride (98-107) mmol/L 106 Carbon Dioxide (21.0-32.0) mmol/L 20.0 L Anion Gap (3-11) mmol/L 11.0 BUN (7-18) mg/dL 21 H Creatinine (0.55-1.02) mg/dL 1.5 H Est GFR (CKD-EPI 2020) (mL/min/1.73m2) 40.65 Glucose (74-106) mg/dL 155 H Calcium (8.5-10.1) mg/dL 9.1 Magnesium (1.8-2.4) mg/dL 1.9 Total Bilirubin (0.2-1.0) mg/dL 0.4 AST (15-37) U/L 20 ALT (14-59) U/L 29 Alkaline Phosphatase (46-116) U/L 142 H Total Protein (6.4-8.2) g/dL 8.2 Albumin (3.4-5.0) g/dL 3.5 Quality:SDOH Health Related Social Needs: No Data to Display PFSH All Active Problems (Updated 09/10/24 @ 13:09 by ERNESTO Tellez) Hyperkalemia (Acute) Pilar esophagitis (Acute) GERD with esophagitis (Acute) Gastritis (Acute) Dysphagia (Acute) Medical History Type 2 diabetes mellitus Hypertension Asthma Fibromyalgia Hypertriglyceridemia Dyspnea on exertion Chronic fatigue Chronic diarrhea Iron deficiency anemia Vitamin D deficiency Interstitial lung disease Right adrenal mass CKD (chronic kidney disease) Unintentional weight loss Hair loss Tobacco dependence Surgical History History of esophagogastroduodenoscopy (~12/2022) Hx of section Hx of section History of cholecystectomy H/O: hysterectomy Social History Smoking/Tobacco Use Status: Current every day Tobacco Type: cigarettes Smoking risk assessment performed?: Yes Alcohol Intake: current Alcohol Intake frequency: holidays/special occasions only Drug use: Never Substance use type: does not use Housing: house Do you feel safe at home: Yes (lives with oldest daughter) Do you feel safe in your relationship?: Yes
[2024-09-10] MEDS: Normal Saline 1,000 ML 1000 ML IV (12:18)
[2024-09-10] MEDS: Calcium Gluconate 4.65 MEQ/10 ML VIAL 4.65 MG IVP (12:37)
[2024-09-10] MEDS: Normal Saline 100 ML (12:44)
== END 2024-09-10 13:26 | disposition home or self-care (01) ==
PROVIDERS: Emergency Provider Physician Assistant; PCP Nurse Practitioner Family
DX: E87.5 Hyperkalemia (principal); E11.22 Type 2 diabetes mellitus with diabetic chronic kidney disease; I12.9 Hypertensive chronic kidney disease with stage 1 through stage 4 chronic kidney disease, or unspecified chronic kidney disease; N18.9 Chronic kidney disease, unspecified; E87.1 Hypo-osmolality and hyponatremia; F17.210 Nicotine dependence, cigarettes, uncomplicated; Z79.84 Long term (current) use of oral hypoglycemic drugs; Z79.82 Long term (current) use of aspirin
CPT/HCPCS: 36415; 80053; 93005; 96361; 96374; 99284; 83735; 85025; 93010; J0612

== ENCOUNTER 2024-12-11 15:00 | Outpatient (REF) | payer MEDICAID, SELFPAY ==
[2024-12-11 21:20] LABS: Anion Gap 10.6 mmol/L (3-11); BUN 24 mg/dL (7-18); CO2 24.4 mmol/L (21.0-32.0); CREATININE 1.5 mg/dL (0.55-1.02); Calcium 9.5 mg/dL (8.5-10.1); Chloride 100 mmol/L (98-107); Estimated GFR 40.39 (mL/min/1.73m2); Glucose 107 mg/dL (74-106); Potassium 5.8 mmol/L (3.5-5.1); Sodium 135 mmol/L (136-145)
== END 2024-12-11 15:01 | disposition home or self-care (01) ==
LOC: NCHCN 15:00
PROVIDERS: PCP Nurse Practitioner Family; Visit Provider Family Medicine
DX: I10 Essential (primary) hypertension (principal)
CPT/HCPCS: 80048

== ENCOUNTER 2024-12-21 01:20 | Outpatient (CLI) | payer MEDICAID, SELFPAY ==
--- NOTE | 2024-12-21 | DI.CTLCSR_ITS ---
Exam(s) CT CHEST LUNG CANCER SCREEN EXAM: CT CHEST LUNG CANCER SCREEN CLINICAL HISTORY: Nicotine dependence F17.210 TECHNIQUE: Imaging Protocol: Axial computed tomography images with coronal and sagittal reformatted images were created and reviewed. Low dose screening protocol. COMPARISON: CR,RF RF BARIUM SWALLOW from 12/31/[address] CHEST LUNG CANCER SCREEN from 11/12/2023 FINDINGS: Tracheobronchial tree: No bronchiectasis or mucus plugging. Mediastinum and [place]: Stable mildly enlarged mediastinal lymph nodes. Pulmonary parenchyma: No consolidation or dominant measurable mass. Mild emphysematous changes. Mild interstitial changes. Lung Nodules: None. Pleura: No effusion. No pneumothorax. Heart: The heart is not dilated. [id number] coronary artery calcifications are seen. No pericardial effusion. Aorta: Thoracic aorta non-dilated. Upper abdomen: Unremarkable. Bones: Unremarkable for age. Soft Tissues: Unremarkable. IMPRESSION: No suspicious pulmonary nodules. Lung RADS Cat 1 - Negative: No nodules and definitely benign nodules Lung-RADS 1.0 CATEGORIES: Category 0 - Prior chest CT exam(s) being located for comparison. Category 1 - Annual screening in 12 months. No nodules or definitely benign nodules. Category 2 - Annual screening in 12 months. Benign appearance. Nodules with low likelihood of becoming active cancer. Category 3 - 6-month follow-up. Probably benign. Short-term follow-up suggested. Nodules with low likelihood of becoming active cancer. Category 4A - 3-month follow-up and CT/PET if >8 mm in size. Suspicious finding. Findings which require additional testing. Category 4B - Findings which require additional testing and tissue sampling. Category 4X - Category 3 or 4 nodules with additional features or imaging findings that increases the suspicion of malignancy. Modifier S- Potentially clinically significant findings (non lung cancer) RADIATION DOSE DELIVERED: !Error Total DLP DATA REPOSITORY: All CT scans at this facility are submitted to the National Radiology Data Registry (NRDR) Dose Index Registry (DIR) with the [employer] (A[employer]). RADIATION OPTIMIZATION: All CT scans at this facility use at least one of these dose optimization techniques: automated exposure control; mA and/or kV adjustment per patient size (includes targeted exams where dose is matched to clinical indication); or iterative reconstruction.
== END 2024-12-21 01:40 ==
LOC: DI 01:20
PROVIDERS: PCP Nurse Practitioner Family; Visit Provider Nurse Practitioner Family
DX: F17.210 Nicotine dependence, cigarettes, uncomplicated (principal); Z12.2 Encounter for screening for malignant neoplasm of respiratory organs
CPT/HCPCS: 71271

== ENCOUNTER 2025-03-29 11:56 | Outpatient (CLI) | payer MEDICAID, SELFPAY ==
--- NOTE | 2025-03-29 10:45 | DI.RAD_ITS ---
Exam(s) XR HAND RT COMPLETE EXAM: XR HAND RT COMPLETE CLINICAL HISTORY: right hand pain. TECHNIQUE: 2D digital imaging was performed of the right hand. Three images were obtained. AP, lateral and oblique views were obtained. COMPARISON: CR XR HAND RT COMPLETE from 08/22/2022 FINDINGS: BONES: No acute fracture is present. No bony destructive lesion is seen. JOINTS: No dislocation present. There are marked degenerative changes seen at the 1st carpometacarpal joint characterized by joint space narrowing and osteophytes. These are stable. The metatarsophalangeal joints are unremarkable. There are degenerative changes again seen at the interphalangeal joints of the fingers particularly the DIP joint of the index finger. The DIP joint of the index finger is held in flexion which has progressed since the prior examination. SOFT TISSUE: Normal. IMPRESSION: Osteoarthritis of the right hand particularly involving the index finger and the 1st CMC joint. DATA REPOSITORY: RADIATION DOSE DELIVERED:
== END 2025-03-29 11:57 | disposition home or self-care (01) ==
LOC: DIORS 11:57
PROVIDERS: PCP Family Medicine; Visit Provider Physician Assistant
DX: M79.641 Pain in right hand (principal); M19.041 Primary osteoarthritis, right hand
CPT/HCPCS: 73130

== ENCOUNTER 2025-04-05 03:45 | Outpatient (CLI) | payer MEDICAID, SELFPAY ==
[2025-04-05] MEDS: Inhaler, Assist Device 1 EACH MC (13:18)
[2025-04-05] MEDS: Levalbuterol HFA 15 GM INH 4 PUFF IH (13:18)
--- NOTE | 2025-04-06 09:35 | W.PFT ---
Date of service: 04/05/25 Time of Service: 08:00 Pulmonary Function Test Result Indications: Asthma/COPD Impression 1. Good patient effort was noted. ATS standards for reproducibility were met. 2. Normal spirometry. 3. Following the administration of a bronchodilator there was not a significant response 4. TLC was normal. No evidence of restrictive lung disease 5. DLCO was reduced at 41% predicted, indicating a severe defect in alveolar gas exchange
== END 2025-04-05 03:46 | disposition home or self-care (01) ==
LOC: RT 03:45
PROVIDERS: PCP Family Medicine; Visit Provider Internal Medicine Pulmonary Disease
DX: J44.89 Other specified chronic obstructive pulmonary disease (principal)
CPT/HCPCS: 94060; 94726; 94729

== ENCOUNTER 2025-05-05 10:01 | Day surgery (SDC) | payer MEDICAID, SELFPAY ==
[2025-05-05 11:02] VITALS: BP 122/61; PULSE 86; RESP 20; TEMP 36.3; O2SAT 93
[2025-05-05] MEDS: Acetaminophen 500 MG TAB 1000 MG PO (11:11)
[2025-05-05] MEDS: Celecoxib 200 MG CAP 400 MG PO (11:11)
[2025-05-05] MEDS: Lactated Ringers 1,000 ML 80 ML IV (11:20)
--- NOTE | 2025-05-05 12:11 | W.ANESPRE ---
General Info Date of Service Date Performed: 05/05/25 Height: 5 ft 2.5 in Weight: 86.5 kg Body Mass Index (BMI): 34.3 Surgical Procedure: Operation Date: 05/05/25 12:25 Proposed Procedure Side Surgeon p Wrist ECTR Right Tal Harrington MD s Trigger Finger Release, RRF Tal Harrington MD Actual Procedure Side Surgeon p Wrist ECTR Right Tal Harrington MD s Trigger Finger Release, RRF Not Applicable Tal Harrington MD Pre-Op Diagnosis Post-Op Diagnosis (1) Arthritis of right hand: (2) Osteoarthritis of carpometacarpal joint of right thumb: (3) Right carpal tunnel syndrome: (4) Cubital tunnel syndrome on right: (5) Trigger finger, right ring finger: Meds Allergies and Home Medications Allergies Allergy/AdvReac Type Severity Reaction Status Date / Time latex Allergy Skin Rash Verified 05/05/25 10:53 Penicillins Allergy Hives Verified 05/05/25 10:53 Home Medication Medication Instructions Recorded albuterol sulfate 90 mcg/actuation 2 inh inhalation PRN PRN 05/31/22 aerosol inhaler (ProAir HFA) aspirin 325 mg tablet 81 mg PO DAILY 05/31/22 cholecalciferol (vitamin D3) 50 1 cap PO DAILY 05/31/22 mcg (2,000 unit) capsule cyclobenzaprine 10 mg tablet 10 tab PO HS 05/31/22 metformin 1,000 mg tablet 1,000 tab PO BID 05/31/22 tiotropium bromide 1.25 2 puff inhalation DAILY 08/27/22 mcg/actuation mist for inhalation (Spiriva Respimat) dapagliflozin propanediol 5 mg 5 mg PO DAILY 09/17/24 tablet (Farxiga) duloxetine 30 mg capsule,delayed 30 mg PO DAILY 09/17/24 release duloxetine 60 mg capsule,delayed 60 mg PO DAILY 09/17/24 release folic acid 1 mg tablet 1 mg PO DAILY 09/17/24 ipratropium 0.5 mg-albuterol 3 mg 3 ml inhalation QID PRN 09/17/24 (2.5 mg base)/3 mL nebulization soln magnesium 250 mg tablet 250 mg PO DAILY 09/17/24 meclizine 25 mg tablet 25 mg PO DAILY PRN 09/17/24 omeprazole 20 mg capsule,delayed 20 mg PO DAILY 09/17/24 release fluticasone propionate 230 2 puff inhalation BID 12/14/24 mcg-salmeterol 21 mcg/actuation HFA inhaler (Advair HFA) lisinopril 20 mg tablet 20 mg PO DAILY 12/14/24 montelukast 10 mg tablet 10 mg PO DAILY 12/14/24 ondansetron 4 mg disintegrating 4 mg PO Q6H PRN 12/14/24 tablet atorvastatin 40 mg tablet 20 mg PO DAILY 03/15/25 ferrous gluconate 324 mg (37.5 mg 324 mg PO DAILY 03/15/25 iron) tablet gabapentin 400 mg capsule 1,200 mg PO TID 03/15/25 nystatin 100,000 unit/mL oral 5 ml PO QID 03/15/25 suspension semaglutide 1 mg/dose (4 mg/3 mL) 2 mg subcut QWEEK 03/29/25 subcutaneous pen injector (Ozempic) acetaminophen 500 mg tablet 500 mg PO ONCE 05/05/25 (Acetaminophen Extra Strength) Current Visit Medications: Current Medications Generic Name Dose Route Start Last Admin Trade Name Freq PRN Reason Stop Dose Admin Acetaminophen 1,000 mg 05/05/25 06:00 05/05/25 11:11 Acetaminophen 500 Mg Tab PO 05/05/25 23:59 1,000 mg PREOP ANA Administration Celecoxib 400 mg 05/05/25 06:00 05/05/25 11:11 Celecoxib 200 Mg Cap PO 05/05/25 23:59 400 mg PREOP ANA Administration Ringer's Solution 1,000 mls @ 80 mls/hr 05/05/25 06:00 05/05/25 11:20 IV 05/05/25 23:59 80 mls/hr INFUSION ANA Administration Cefazolin Sodium/Dextrose 2 gm in 50 mls @ 100 mls/hr 05/05/25 06:00 Ancef Duplex IVPB 05/05/25 23:59 PREOP ANA IV Miscellaneous Supplies 1 each 05/05/25 06:00 Iv Access IV 05/05/25 23:59 DIRECTED ANA Sodium Chloride 0 ml 05/05/25 06:00 Normal Saline Flush 10 Ml Syr IV 05/05/25 23:59 PRN PRN Sodium Chloride 0 ml 05/05/25 06:00 Normal Saline 10 Ml Vial IJ 05/05/25 23:59 DIRECTED PRN Sterile Water 0 ml 05/05/25 06:00 Water,Injection,Sterile 10 Ml Vial IJ 05/05/25 23:59 DIRECTED PRN PFSH Active Problems Active Problems: Problem Status Onset Code Trigger finger, right ring finger Acute M65.341 Cubital tunnel syndrome on right Acute G56.21 Right carpal tunnel syndrome Acute G56.01 Osteoarthritis of carpometacarpal joint of right thumb Acute M18.11 Arthritis of right hand Acute M19.041 Obstructive sleep apnea Chronic G47.33 Tobacco abuse Acute Z72.0 Asthma with COPD Acute J44.89 Hoarseness of voice Acute R49.0 Pilar esophagitis Acute B37.81 GERD with esophagitis Acute K21.00 Gastritis Acute K29.70 Dysphagia Acute R13.10 Medical History Medical History Low serum vitamin B12 Pain in right shoulder Low folate Carpal tunnel syndrome, bilateral Headache Minor memory lapses Sleep disorder Pain in right arm Spasm Dupuytren's disease of finger with contracture Idiopathic osteoarthritis Non-scarring alopecia Irritable bowel syndrome with diarrhea Retinopathy due to secondary diabetes mellitus Migraine Nicotine dependence Hypomagnesemia Hyperglycemia Disorder of adrenal gland Type 2 diabetes mellitus Hypertension Asthma Fibromyalgia Hypertriglyceridemia Dyspnea on exertion Chronic fatigue Chronic diarrhea Iron deficiency anemia Vitamin D deficiency Interstitial lung disease Right adrenal mass CKD (chronic kidney disease) Unintentional weight loss Hair loss Tobacco dependence Medical History Comments:: 05/05/25: one cigarette at 0400 and one at 0700 today Surgical History Surgical History History of esophagogastroduodenoscopy (~12/2022) Hx of section Hx of section History of cholecystectomy H/O: hysterectomy Tobacco Smoking/Tobacco Use Status: Current every day Tobacco Type: cigarettes Smoking cigarettes per day: 10 Passive smoking exposure: Yes Alcohol Alcohol Intake: current Alcohol intake frequency: holidays/special occasions only Substance Use Substance use: Never Substance use type: does not use Details: alcohol: 4 years Vital Signs and Lab Results Vital Signs Most Recent Vital Signs in EMR: Temp Pulse Resp BP Pulse Ox 36.3 C L 86 20 122/61 93 05/05/25 11:02 05/05/25 11:02 05/05/25 11:02 05/05/25 11:02 05/05/25 11:02 Point of Care Results Point of Care Results: Finger Stick Blood Glucose 110 05/05/25 10:38 Imaging and Studies Imaging and Studies Study information below may be from another EMR and interpreted by another provider. Please see original notes in EMR for more complete details. EKG Summary: 06/14: sinus. Stress Test Summary: STRESS TEST PATIENT NAME: Nancy Diego UNIT #: [id number] ORDERING PROVIDER: Maddie Salinas PRIMARY CARE PROVIDER: MADDIE SALINAS DATE/TIME OF SERVICE: 05/11/24 ADMITTING PROVIDER: LUZMARIA REAGAN MD : 1965 APPROVED REPORT Exam: Exercise Treadmill Patient Location: Out-Patient Room/Bed: Stress Nurse: Shereen Knight RN Ordering Provider:MADDIE SALINAS, Contact Number: [phone] BMI: 35.07 Baseline Rhythm: Sinus Rhythm Comment: Rare PVC's Indications: Chest pain, some SOB, recent dizziness, Medical History Medical History: Fibromyalgia, dyspnea, interstitial lung disease, HLD, DMT2, retinopathy, smoker, HTN, asthma, iron deficiency anemia Cardiac Medications: Aspirin, atorvastatin, farxiga, gabapentin, ipratropium-albuterol, lisinopril, metformin, montelukast, advair, duloxetine, spiriva, omeprazole Allergies: Latex, penicillins Cardiac Risk Factors: HTN, HLD, diabetes, asthma, COPD, smoker Previous Cardiac Procedures: None Pretest Chest Pain Characteristics: None Exercise History: Indeterminate Physical Disabilities: None Lung Sounds: Clear to auscultation Heart Sounds: Regular Stress Test Details Test: Exercise stress testing was performed using a Robert protocol. Rest Stress HR Resting HR Supine: 83 bpmMax Heart Rate (APMHR): 164 bpm Resting HR Standin bpmTarget HR (85% APMHR): 139 bpm Max HR Achieved: 113 bpm % of APMHR: 69 Recovery HR: 88 bpm HR response to stress: Normal HR response to stress BP Resting BP Supine: 124/64 mmHg Resting BP Standin/64 mmHg Max BP: 134/60 mmHg Recovery BP: 118/68 mmHg BP response to stress: Normal blood pressure response to stress. ECG Resting ECG: Sinus Rhythm Ectopy: Rare PVC's Stress ECG: Sinus Tachycardia ST Change: Nondiagnostic low heart rate Arrhythmia: Rare PVC's Recovery ECG: Sinus Rhythm Recovery ST Change: Nondiagnostic low heart rate Recovery Arrhythmia: Rare PVC's Clinical Reason for Termination: Dyspnea Stress Symptoms: Severe SOB Exercise duration: 01 min32 sec Highest Stage Reached: Stage 1: 1.7 mph at 10% grade. Exercise capacity: 3.57 METs Angina Score: None Bonilla Treadmill Score: 1.8 Rate Pressure Product: 09391 Stress ECG Conclusion 1. Resting electrocardiogram showed low voltage 2. Patient exercised on the Robert protocol for only 1 minute and 32 seconds, very poor exercise capacity, limited by shortness of breath 3. Peak heart rate achieved was 69% of maximal predicted heart rate for age 4. The electrocardiographic portion of the test was nondiagnostic 5. Occasional PVCs were noted Bonilla Treadmill Score is 1.8 which is Moderate risk. Stress Test Summary STAGETime (mins)Speed (mph)Grade (%)[id number]% [id number]/64 [id number]%Mod-Severe SOB4.5 1 min [id number]/5086%Mod SOB 3 min [id number]/6094%Mild SOB 6 min [id number]/6895%SOB resolved. Dictated by: MERARY LEROY,LUZMARIA CHAPARRO CT Summary: 09/13:table mild emphysematous and fibrotic changes Pulmonary Function Summary: Pulmonary Function Test PATIENT NAME: Nancy Diego UNIT #: [id number] ADMITTING PROVIDER: Reinier Keith M.D. PRIMARY CARE PROVIDER: SHELBY MCCORD MD DATE OF ADMIT: 04/05/25 : 1965 Date of service: 04/05/25 Time of Service: 08:00 Pulmonary Function Test Result Indications: Asthma/COPD Impression 1. Good patient effort was noted. ATS standards for reproducibility were met. 2. Normal spirometry. 3. Following the administration of a bronchodilator there was not a significant response 4. TLC was normal. No evidence of restrictive lung disease 5. DLCO was reduced at 41% predicted, indicating a severe defect in alveolar gas exchange 05/13: isolated severe diffusion defect. strongly positive methacholine challenge test. Anesthesia Assessment and Plan Anesthesia History Personal History: No History of Anesthesia Complications Family History: No Family History of Anesthesia Complications Exercise Tolerance Exercise Tolerance: Metabolic Equivalents>4 Pertinent Negatives Pertinent Negatives: No Symptoms of GERD, No Major Cardiovascular Symptoms or Complaints and No Major Pulmonary Symptoms or Complaints Cardiac & Pulmonary Exam Cardiac Exam: Normal S1/S2 Heart Sounds Pulmonary Exam: Clear Bilateral Breath Sounds Implantable Cardiac Device Does patient have a Pacemaker or an ICD?: No Airway Exam Known Difficult Airway: No Mallampati Class: 3 Mouth Opening: Normal (> 3cm) Thyromental Distance: Greater than 3 cm Neck Range of Motion: Full ROM Neck Circumference: Normal Teeth Condition: Generalized Poor Dentition (Only about ten teeth left per patient none are loose or unstable) ASA Classification ASA Score: ASA 3 Emergency Case?: No NPO Status NPO Status: NPO Clears >2 hours, Solids >8 hours Anesthesia Plan Resuscitation Status: Full Code Anesthesia Technique: General Anesthesia Airway Planned: Natural Airway Monitors Used: Standard Monitors
[2025-05-05 12:20] VITALS: BMI 34.3
--- NOTE | 2025-05-05 12:32 | W.PREOPHP ---
Assessment and Plan Assessment and plan (1) Trigger finger, right ring finger: Status: Acute (2) Right carpal tunnel syndrome: Status: Acute (3) Osteoarthritis of carpometacarpal joint of right thumb: Status: Acute Assessment and plan: Nancy is a 59-year-old female who has carpal tunnel syndrome about the right side in addition to a triggering right ring finger and thumb CMC arthritis. She is here today for carpal tunnel release on the right side in addition to a ring finger trigger release as well as a thumb CMC injection. I discussed the technical details of the case. I reviewed the risk to include bleeding, infection, pain, stiffness, continued symptoms, incomplete release, need for repeat procedures, persistent numbness. Despite these risks, she elects to proceed. History of Present Illness History of Present Illness Chief Complaint: Right Hand Numbness, Trigger Finger, and Pain Narrative: Nancy is a 59-year-old female who have seen previously in the office for constellation of upper extremity symptoms including pain, numbness, and triggering. Her primary symptoms seem to be related to carpal tunnel syndrome on the right side along with a trigger finger of the right ring finger. She also has pain about the hand which seems to be related to thumb CMC arthritis. Therefore, I offered carpal tunnel release, trigger finger release, and thumb CMC injection. She reports that her baseline medical issues including diabetes, GERD, COPD among others has been stable. No acute medical changes. No chest pain or shortness of breath. Review of Systems All systems reviewed & are unremarkable except as noted in HPI and below PFSH All Active Problems Trigger finger, right ring finger (Acute) Cubital tunnel syndrome on right (Acute) Right carpal tunnel syndrome (Acute) Osteoarthritis of carpometacarpal joint of right thumb (Acute) Arthritis of right hand (Acute) Most significantly DIP right index finger Obstructive sleep apnea (Chronic) Tobacco abuse (Acute) Asthma with COPD (Acute) Hoarseness of voice (Acute) Pilar esophagitis (Acute) GERD with esophagitis (Acute) Gastritis (Acute) Dysphagia (Acute) Medical History Low serum vitamin B12 Pain in right shoulder Low folate Carpal tunnel syndrome, bilateral Headache Minor memory lapses Sleep disorder Pain in right arm Spasm Dupuytren's disease of finger with contracture Idiopathic osteoarthritis Non-scarring alopecia Irritable bowel syndrome with diarrhea Retinopathy due to secondary diabetes mellitus Migraine Nicotine dependence Hypomagnesemia Hyperglycemia Disorder of adrenal gland Type 2 diabetes mellitus Hypertension Asthma Fibromyalgia Hypertriglyceridemia Dyspnea on exertion Chronic fatigue Chronic diarrhea Iron deficiency anemia Vitamin D deficiency Interstitial lung disease Right adrenal mass CKD (chronic kidney disease) Unintentional weight loss Hair loss Tobacco dependence Surgical History History of esophagogastroduodenoscopy (~12/2022) Hx of section Hx of section History of cholecystectomy H/O: hysterectomy Social History Smoking/Tobacco Use Status: Current every day Tobacco Type: cigarettes Smoking risk assessment performed?: Yes Alcohol Intake: current Alcohol Intake frequency: holidays/special occasions only Drug use: Never Substance use type: does not use Details: alcohol: 4 years Housing: house Do you feel safe at home: Yes (lives with oldest daughter) Do you feel safe in your relationship?: Yes Meds Allergies and Home Medications Allergies Allergy/AdvReac Type Severity Reaction Status Date / Time latex Allergy Skin Rash Verified 05/05/25 10:53 Penicillins Allergy Hives Verified 05/05/25 10:53 Home Medications Medication Instructions Recorded Confirmed Type albuterol sulfate 90 mcg/actuation 2 inh inhalation PRN PRN 05/31/22 05/05/25 History aerosol inhaler (ProAir HFA) aspirin 325 mg tablet 81 mg PO DAILY 05/31/22 05/05/25 History cholecalciferol (vitamin D3) 50 1 cap PO DAILY 05/31/22 05/05/25 History mcg (2,000 unit) capsule cyclobenzaprine 10 mg tablet 10 tab PO HS 05/31/22 05/05/25 History metformin 1,000 mg tablet 1,000 tab PO BID 05/31/22 05/05/25 History tiotropium bromide 1.25 2 puff inhalation DAILY 08/27/22 05/05/25 History mcg/actuation mist for inhalation (Spiriva Respimat) dapagliflozin propanediol 5 mg 5 mg PO DAILY 09/17/24 05/03/25 History tablet (Farxiga) duloxetine 30 mg capsule,delayed 30 mg PO DAILY 09/17/24 05/05/25 History release duloxetine 60 mg capsule,delayed 60 mg PO DAILY 09/17/24 05/05/25 History release folic acid 1 mg tablet 1 mg PO DAILY 09/17/24 05/05/25 History ipratropium 0.5 mg-albuterol 3 mg 3 ml inhalation QID PRN 09/17/24 05/05/25 History (2.5 mg base)/3 mL nebulization soln magnesium 250 mg tablet 250 mg PO DAILY 09/17/24 05/05/25 History meclizine 25 mg tablet 25 mg PO DAILY PRN 09/17/24 05/05/25 History omeprazole 20 mg capsule,delayed 20 mg PO DAILY 09/17/24 05/05/25 History release fluticasone propionate 230 2 puff inhalation BID 12/14/24 05/05/25 History mcg-salmeterol 21 mcg/actuation HFA inhaler (Advair HFA) lisinopril 20 mg tablet 20 mg PO DAILY 12/14/24 05/05/25 History montelukast 10 mg tablet 10 mg PO DAILY 12/14/24 05/05/25 History ondansetron 4 mg disintegrating 4 mg PO Q6H PRN 12/14/24 05/05/25 History tablet atorvastatin 40 mg tablet 20 mg PO DAILY 03/15/25 05/05/25 History ferrous gluconate 324 mg (37.5 mg 324 mg PO DAILY 03/15/25 05/05/25 History iron) tablet gabapentin 400 mg capsule 1,200 mg PO TID 03/15/25 05/05/25 History nystatin 100,000 unit/mL oral 5 ml PO QID 03/15/25 05/05/25 History suspension semaglutide 1 mg/dose (4 mg/3 mL) 2 mg subcut QWEEK 03/29/25 05/03/25 History subcutaneous pen injector (Ozempic) acetaminophen 500 mg tablet 500 mg PO ONCE 05/05/25 05/05/25 History (Acetaminophen Extra Strength) Exam Const General: cooperative, healthy appearing, comfortable and no acute distress Resp Effort & Inspection: normal respiratory effort Auscultation: clear to auscultation bilaterally Cardio Rate: regular rate Rhythm: regular rhythm Results Last Vital Signs Temp 36.3 C L 05/05/25 11:02 Pulse 86 05/05/25 11:02 Resp 20 05/05/25 11:02 BP 122/61 05/05/25 11:02 Pulse Ox 93 05/05/25 11:02
[2025-05-05] MEDS: ceFAZolin 2 GM/50 ML BAG IVPB (12:40)
[2025-05-05] MEDS: Bupivacaine 0.25% Pres-Free 10 ML VIAL (12:55)
[2025-05-05] MEDS: methylPREDNISolone ACETATE 80 MG/ML VIAL (12:55)
--- NOTE | 2025-05-05 13:10 | W.PM.DSUDISC ---
Date of service: 05/05/25 Discharge Plan Disposition Patient Disposition: Home Condition: Good Discharge Details Reason For Visit: RRF trigger release; R ECTR Attending Provider: Tal Harrington Primary Care Provider: Rayne Nye Home Meds and New Rx's Prescriptions: New hydrocodone-acetaminophen 5-325 mg tablet 1 tab PO Q6H PRN (Reason: pain) Qty: 4 0RF acetaminophen 500 mg tablet 1,000 mg PO TID Qty: 90 0RF ibuprofen 600 mg tablet 600 mg PO TID PRN (Reason: pain) Qty: 90 0RF Continued Spiriva Respimat 1.25 mcg/actuation mist 2 puff inhalation DAILY duloxetine 30 mg capsule,delayed release(DR/EC) 30 mg PO DAILY duloxetine 60 mg capsule,delayed release(DR/EC) 60 mg PO DAILY dapagliflozin propanediol [Farxiga] 5 mg tablet 5 mg PO DAILY folic acid 1 mg tablet 1 mg PO DAILY ipratropium-albuterol 0.5 mg-3 mg(2.5 mg base)/3 mL solution for nebulization 3 ml inhalation QID PRN magnesium 250 mg tablet 250 mg PO DAILY meclizine 25 mg tablet 25 mg PO DAILY PRN omeprazole 20 mg capsule,delayed release(DR/EC) 20 mg PO DAILY lisinopril 20 mg tablet 20 mg PO DAILY montelukast 10 mg tablet 10 mg PO DAILY ondansetron 4 mg tablet,disintegrating 4 mg PO Q6H PRN fluticasone propion-salmeterol [Advair HFA] 230-21 mcg/actuation HFA aerosol inhaler 2 puff inhalation BID atorvastatin 40 mg tablet 20 mg PO DAILY Patient Comments: TAKE ONE TABLET BY MOUTH EVERY DAY nystatin 100,000 unit/mL suspension 5 ml PO QID Patient Comments: Rx Instructions: swish and swallow ferrous gluconate 324 mg (37.5 mg iron) tablet 324 mg PO DAILY gabapentin 400 mg capsule 1,200 mg PO TID Ozempic 1 mg/dose (4 mg/3 mL) pen injector 2 mg subcut QWEEK cyclobenzaprine 10 mg tablet 10 tab PO HS Patient Comments: TAKE ONE TABLET BY MOUTH THREE TIMES A DAY NEEDED metformin 1,000 mg tablet 1,000 tab PO BID Patient Comments: TAKE ONE TABLET BY MOUTH TWICE A DAY albuterol sulfate [ProAir HFA] 90 mcg/actuation HFA aerosol inhaler 2 inh INHALATION PRN PRN Patient Comments: INHALE 1-2 PUFFS BY MOUTH EVERY 4 TO 6 HOURS NEEDED cholecalciferol (vitamin D3) 50 mcg (2,000 unit) capsule 1 cap PO DAILY Patient Comments: TAKE ONE CAPSULE BY MOUTH EVERY DAY aspirin 325 mg Tablet 81 mg PO DAILY Discontinued acetaminophen [Acetaminophen Extra Strength] 500 mg tablet 500 mg PO ONCE Patient Comments: pt. reports taking 4 tablets Discharge Instructions Stand Alone Forms: [facility]esthesia Discharge [facility] [place] C. Tunnel Release, [place] T. Finger Release, Caitlin Wyatt ([facility]), Portal Information Referrals: Tal Harrington MD [ [facility] STAFF PHYSICIAN, Orthopaedic Surgical] - 05/14/25 9:00 am Referral Note: w/PA Activity:: Activity as Tolerated Remove Dressings/Wound Care:: 48 hours Shower/Bathe:: 48 hours Diet:: As Tolerated Discharge Orders Discharge Orders: Discharge Order (Routine); Ordered 05/05/25 Ordered By: Reinier De La Fuente DS: Diagnosis Discharge Diagnosis (1) Trigger finger, right ring finger: Status: Acute (2) Right carpal tunnel syndrome: Status: Acute (3) Osteoarthritis of carpometacarpal joint of right thumb: Status: Acute
[2025-05-05 13:12] VITALS: BP 104/68; PULSE 84; RESP 20; TEMP 36.3; O2SAT 93
--- NOTE | 2025-05-05 13:12 | ROE_ITS ---
Operative Note Operative Note PRE-OP DIAGNOSIS: Right Carpal Tunnel Syndrome Right Ring Finger Trigger Finger Right Thumb CMC Arthritis POST-OP DIAGNOSIS: same PROCEDURE: Right Endoscopic Carpal Tunnel Release Right Ring Finger Trigger Release Right Thumb CMC Joint Injection SURGEON: Tal Harrington ANESTHESIA TYPE: General:No Airway Refer to Anesthesia Record ESTIMATED BLOOD LOSS: 0 PATHOLOGY: none sent TOURNIQUET TIME: 10 COMPLICATIONS: None Patient was transported to: same day Patient's condition: stable Indications: I have seen Nancy in clinic for symptoms of carpal tunnel syndrome in addition to a trigger finger of the ring finger and pain about the thumb base, diagnosis thumb CMC arthritis. The numbness, tingling, triggering and pain limited function. Clinical exam findings with nerve conduction tests confirmed the diagnosis of carpal tunnel syndrome. Nonoperative measures such as bracing, time, activity modifications had been tried but disability and pain persisted. I discussed carpal tunnel release with the patient. I reviewed the risks of the procedure to include, but not limited to, bleeding, infection, pain, stiffness, incomplete release, damage to nerves or vessels, persistent numbness, recurrence. Despite these risks, the patient elected to proceed. Findings: There was tightened carpal tunnel. This was dilated and released successfully with the endoscopic with increased space within the tunnel. The antebrachial fascia was released proximally freeing the median nerve at the wrist. Procedure Description: Nancy was greeted in the preoperative holding area where the correct side was identified and marked. The consent was reviewed with the patient and signed. The history and physical was updated. All questions were answered. Nancy was taken back to the operating room. The patient was placed into the supine position on the operating room table with the right arm on an arm board. A nonsterile tourniquet was placed high onto the arm. All bony prominences were well padded. Prophylactic antibiotics in the form of Cefazolin were administered. The right arm was then prepped with Chloraprep and draped in a standard fashion with stockinette and extremity drape. A timeout to confirm correct identity, side and site, procedure, allergies, anesthesia, and medical concerns was performed. The thumb CMC injection was performed first. Palpation of the thumb CMC joint was made. Using a 25-gauge needle was then able to inject the thumb CMC joint confirmed with thumb metacarpal motion. I then injected approximately 1 cc of 0.25% bupivacaine and 40 mg of Depo-Medrol. Then, the surgical site for the carpal tunnel was marked in the volar wrist creases in line with the radial border of the fourth ray and the surgical site for the trigger finger release was marked in line with the ring finger ray overlying the A1 angelo. These areas were then anesthetized with approximately 10cc of 1% Lidocaine with epinephrine. The limb was then exsanguinated with an Esmarch. Starting with carpal tunnel, the skin was incised with a 15 blade, approximately 1cm. The skin only was cut and the deeper tissue was dissected bluntly with a tenotomy scissor, avoiding passing nerve and venous structures. The fascia was penetrated and opened bluntly. A two-prong skin hook was placed under this proximal fascial edge. A series of hamate finders were used to identify and dilate the carpal tunnel. Synovial elevator was used to free synovial attachments to the underside of the transverse carpal ligament. My thumb was kept in the palm to beau the distal extent of the carpal tunnel and correctly position the hand. The [employer]aire endoscope was inserted without difficulty and without resistance. Excellent visualization showed horizontally running fibers of the transverse carpal ligament (TCL). The distal extent of the TCL was visualized and the end of the scope palpated with the thumb. The blade was elevated and withdrawn from distal to proximal. The TCL was split into two flaps. The endoscope was reinserted to confirm complete r elease and any remnant ligament was incised. The scope was withdrawn and the proximal aspect of the carpal tunnel was grossly inspected and appeared release with the median nerve visible. The antebrachial fascia at the level of the wrist was then freed from the overlying skin and then the underlying median nerve with blunt dissection. This was transected longitudinally for about 3cm proximal to the wrist incision. The wound was then irrigated with easy flow of irrigant distally and proximally. The incision was closed with a single 4-0 Nylon suture. Attention was then turned to the trigger finger release of the ring finger. A longitudinal incision was made through skin only, approximately 1cm. The deep tissues were dissected bluntly. Once the A1 angelo and flexor tendons were i dentified the soft tissue including neurovascular structures were retracted medially and laterally. There were no crossing structures over the A1 angelo. The proximal edge of the angelo was identified and the angelo was incised with tenotomy scissors. There was a release of the tendons once this was fully released. The tendons were then removed from the wound and inspected. The tendons were then returned and the patient was asked to move the finger into deep flexion and back to extension. There was no recreation of the pre- operative symptoms. The hand was then once more inspected for any A0 angelo or area of possible constriction. The wound was then irrigated and the skin was closed with a 4-0 Nylon. This was dressed with gauze and a Conform dressing. The patient tolerated the procedure well and was returned to the Same Day Surgery area in a stable condition suffering no known complication. The wound was dressed with Xeroform, Gauze, Kerlix and Anthony. The tourniquet was deflated with the initial dressing and held with some pressure. Blood flow returned easily to all digits with capillary refill less than 2 seconds. The patient tolerated the procedure well and was returned to the Same Day Surgery area in a stable condition suffering no known complication. Date of Procedure: 05/05/25
--- NOTE | 2025-05-05 13:32 | W.ANESPOSTOP ---
Postoperative Evaluation Date, Time and Location Date Performed: 05/05/25 Time Performed: 13:33 Patient Location: Day Surgery Unit Vital Signs Most Recent Imported Vital Signs: Most Recent Vital Signs Temp Pulse Resp BP Pulse Ox 36.3 C L 84 20 104/68 93 05/05/25 13:12 05/05/25 13:12 05/05/25 13:12 05/05/25 13:12 05/05/25 13:12 Pain Score Most Recent Pain Score: Most Recent Pain Score Pain Level 0 05/05/25 13:12 Assessment Mental Status: Awake (Alert & Oriented to Patient Baseline) Airway and Respiratory Function: Patent airway with normal (patient baseline) respiratory exam Cardiovascular Function: Hemodynamically Stable Hydration Status: Adequately Hydrated Nausea & Vomiting: No Nausea or Vomiting Pain: Pt. Denies Any Pain Peripheral Nerve Block: Patient did not receive a nerve block
[2025-05-05 13:40] VITALS: BP 106/76; PULSE 82; RESP 20; TEMP 36.2; O2SAT 93
== END 2025-05-05 13:55 | disposition home or self-care (01) ==
PROVIDERS: PCP Family Medicine; Visit Provider Student in an Organized Health Care Education/Training Program
PROC: 01N54ZZ Release Median Nerve, Percutaneous Endoscopic Approach (ICD-10-PCS; CPT 29848; principal; 2025-05-05 12:15)
PROC: (CPT 26055; 2025-05-05 12:15)
DX: G56.01 Carpal tunnel syndrome, right upper limb (principal); M65.341 Trigger finger, right ring finger; M18.11 Unilateral primary osteoarthritis of first carpometacarpal joint, right hand
CPT/HCPCS: 29848; 26055; 20600; J0665; J0690; J1010; J2003; J2004; J2405; J2704